=== PATIENT | female | born 1980 | race Hispanic/Latino ===

== ENCOUNTER 2022-06-24 19:57 | Emergency (ER) | payer BC, OTHER ==
[2022-06-24] MEDS ORDERED: LEVALBUTEROL 1.25 MG/3 ML NEB ONE (20:58)
[2022-06-24] MEDS ORDERED: METHYLPREDNISOLONE 125 MG INJ ONE (20:58)
[2022-06-24] MEDS ORDERED: NA CHLORIDE 0.9% 1,000 ML ONE (20:59)
--- OUTSIDE RECORDS SUMMARY | 2022-06-24 21:06 | XMS REPORT | Continuity of Care Document ---
:1980 Author Organization [facility] t Address [address] [place] [address] Care Team Providers Name Role Phone Nata JEAN-BAPTISTE, Yoan PalenciaTatianna Primary Care Physician Tigre Campo Attending Clinician TIGRE CARRILLO Attending Clinician Unavailable BRANDON PLUNKETT Attending Clinician Unavailable BRANDON PLUNKETT Attending Clinician [phone] RADHA MÉNDEZ Attending Clinician Unavailable RADHA MÉNDEZ Attending Clinician [phone] NURSE, NURSE Attending Clinician Unavailable ANA ROSA SHAW Attending Clinician [phone] BREONNA BARNEY Attending Clinician [phone] UBALDO CHINO Attending Clinician Unavailable UBALDO CHINO Attending Clinician [phone] LANCE BRITTON Attending Clinician Unavailable LANCE BRITTON Attending Clinician [phone] STUDENT, STUDENT Attending Clinician Unavailable LUZ BERGMAN Attending Clinician Unavailable LUZ BERGMAN Attending Clinician [phone] JOSE RICHARD Attending Clinician Unavailable JOSE RICHARD Attending Clinician [phone] WOLF WHEELER Attending Clinician Unavailable WOLF WHEELER Attending Clinician [phone] APRIL DEEPTI Attending Clinician [phone] ANDREA WHITMAN Attending Clinician [phone] DR ANAI MCKEON Attending Clinician Unavailable JORGE TRACEY M.D. Attending Clinician Unavailable DECLAN ARVIZU NP Attending Clinician Unavailable Trung Mccain Attending Clinician TIGRE CARRILLO Admitting Clinician Unavailable DR ANAI MCKEON Admitting Clinician Unavailable Trung Mccain Admitting Clinician Payers Payer Name Policy Type Policy Number Effective Date Expiration Date S ource Problems Condition Condition Condition Status Onset Resolution Last Treating Co mments Source Name Details Category Date Date Treatment Clinician Date Iron Iron Disease Active 2016-10 [facility] deficiency deficiency 2 anemia anemia 00:00: Hospita 00 l History of History of Disease Active 2016-10 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 00:00: Hospita 00 l Menorrhagi Menorrhagi Disease Active 2016-10 M ethodi a with a with 11-28 st regular regular 00:00: Hospita cycle cycle 00 l AUTO PED AUTO PED Diagnosis Active 2013-102014-08-08 Memoria Active 0-24 23:14:00 l 08/08/2014 00:00: Reece narvaez [address] ABD PAIN ABD PAIN Diagnosis Active 2013-102014-08-19 Memoria Active 0-24 14:43:00 l 08/08/2014 00:00: Reece narvaez [address] KAILEE KAILEE Diagnosis Active 2013-102014-08-11 Memoria BILLING BILLING 0-24 12:59:00 l Active 00:00: Luis 08/08/[address] [place] [address] ABDMNAL ABDMNAL Diagnosis Active 2014-08-19 Memoria PAIN PAIN 14:43:00 l UNSPCF UNSPCF [place] SITE SITE Active [facility] Asthma Asthma Problem Resolve 2014-08-11 Mem oria (disorder) (disorder) d 22:30:16 l Resolved [place] Problem 08/11/2014 [facility] Depression Depressio Problem Resolve 2014-08-11 Memoria - motion n - motion d 22:30:16 l (qualifier (qualifier He rmann value) value) Resolved Problem 08/11/2014 [facility] Fibromyosi Fibromyos Problem Resolve 2014-08-11 Memoria tis itis d 22:30:16 l (disorder) (disorder) He rmann Resolved Problem 08/11/2014 [facility] Migraine Migraine Problem Resolve 2014-08-11 Memoria (disorder) (disorder) d 22:30:16 l Resolved [place] Problem 08/11/2014 [facility] History of History of Problem Resolve [place] asthma asthma HL7.CCDAR2 d Physic i ans History of History of Problem Resolve [place] chronic chronic HL7.CCDAR2 d Phys ici pain pain ans History of History of Problem Resolve [place] depression depression HL7.CCDAR2 d Physici ans History of History of Problem Resolve [place] migraine migraine HL7.CCDAR2 d Ph ysici headaches headaches ans History of History of Problem Resolve [facility] pneumonia pneumonia HL7.CCDAR2 d Physici ans Transfusio Transfusio Problem Resolve UT n history n history HL7.CCDAR2 d Physici ans Urinary Urinary Problem Active [facility] urgency urgency HL7.CCDAR2 Phys ici ans Mixed urge Mixed urge Problem Active U T and stress and stress HL7.CCDAR2 Physici incontinen incontinen an s ce ce 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 Post-op Post-op Problem Active [facility] pain pain HL7.CCDAR2 Physic i ans Post-opera Post-opera Problem Active U T tive tive HL7.CCDAR2 Physic i nausea and nausea and an s vomiting vomiting Post-opera Post-opera Problem Active U T tive state tive state HL7.CCDAR2 Physici ans Bilateral Bilateral Problem Active [facility] lower lower HL7.CCDAR2 Physic i abdominal abdominal ans pain pain Postop Postop Problem Active [facility] check check HL7.CCDAR2 Physic i ans Allergies, Adverse Reactions, Alerts Allergy Allergy Status Severity Reaction(s) Onset Inactive Treating Comm ents Source Name Type Date Date Clinician latex drug Active 2018-10 [facility] allergy 0-09 [facility]alth 00:00: 00 No Known Propensi Active 2017-1 Method i Drug ty to 12-13 st Allergie adverse 00:00: Hospita s reaction 00 l s to drug latex DA Active [facility] 10-28 [facility] 00:[facility]: [facility] 00 l [facility] [place] NO KNOWN Drug Active [facility] ALLERGIE Class ity of [facility] [place] [facility] [place] Latex Latex Active Franco Smith Family History Family Member Diagnosis Comments Start Date Stop Date Source aunt Family history of [facility] Urinary incontinence Grandmother Family history of [facility] Urinary incontinence Mother Asthma 2019-07-24 2019-07-24 [facility] 00:00:00 00:00:00 Social History Social Habit Start Date Stop Date Quantity Comments Source Health-related 2019-07-24 [facility] Behavior 00:00:00 History of tobacco 2019-07-24 Current [facility] use 00:00:00 non-smoker Nutritional 2019-07-24 [facility] observable 00:00:00 Tobacco use and 2019-07-24 : No Details [facility] exposure 00:00:00 Available Quantity Details - : No Details Available Alcohol intake 2017-09-27 2017-09-27 [facility] 00:00:00 00:00:00 non-drinker of alcohol (finding) Social History 2014-08-09 2014-08-09 [facility] 07:03:33 07:03:33 Sex Ass[birth year] At [birth year] [facility] 00:00:00 00:00:00 Smoking Status Start Date Stop Date Source Tobacco smoking consumption [facility] Never smoker [facility] Medications Ordered Filled Start Stop Current Ordering Indication Dosage Frequency Signature Comments Components Source Medication Medication Date Date Medication? Clinician (SIG) Name Name predniSONE 2021- Yes [id number] 20mg Take 1 [facility] 20 mg 06-20 tablet by ity of tablet 00:00: 04:59 mouth in [place] 00 :00 the Medical morning Branch for 5 days. dexAMETHaso 2021- No 10mg 10 mg, Uni vers ne 06-19 Oral, ity of (DECADRON) 19:30: 19:11 ONCE, 1 [place] as tablet 10 00 :00 dose, On Medica l mg 06/19/22 Branch at 1430, BRADY metoclopram 2021- No 5mg 5 mg, Univ ers chaim HCl 06-19 Oral, ity of (REGLAN) 19:30: 19:07 ONCE, 1 [place] tablet 5 mg 00 :00 dose, [place] 06/19/22 Branch at 1430, BRADY butalbital- 2021- No 1{tbl} 1 tablet, Univers acetaminoph 06-19 Oral, ity of en-caff 19:30: 19:06 ONCE, 1 [place] (ESGIC) 00 :00 dose, On Medical 50-325-40 06/19/22 Bran ch mg tablet 1 at 1430, tablet BRADY ketorolac 2021- No 60mg 60 mg, Unive rs (TORADOL) 06-19 Intramuscu ity of injection 19:30: 19:07 [place], ONCE, [place] 60 mg 00 :00 1 dose, On Medical 06/19/22 Branch at 1430, BRADY methocarbam 2021- No 1000mg 1,000 mg, Univers oL 06-19 Oral, ity of (ROBAXIN) 19:00: 19:07 ONCE, [place] tablet 00 :[place] dose, On Medical 1,000 mg 06/19/22 Branc h at 1400, BRADY ibuprofen 0 Yes [id number] 600mg Take 1 U nivers 600 mg 9-04 tablet by ity of tablet 00:00: mouth [place] 00 every 6 Medical (six) Branch hours as needed for Pain (scale 4-6). methocarbam 2021-0 Yes [id number] 500mg Take 1 [facility] oL 500 mg 9-04 tablet by ity o f tablet 00:00: mouth 4 [place] 00 (four) Medical times Branch daily as needed for Pain (scale 7-10). butalbital- 2021-0 Yes [id number] 1{tbl} Take 1 [facility] acetaminoph 9-04 tablet by ity of en-caff 00:00: mouth [place] 50-325-40 00 every 4 Medical mg tablet (four) Branch hours as needed for Pain (scale 7-10) (headache) . metoclopram 2021-0 Yes [id number] 5mg Take 1 [facility] chaim HCl -04 tablet by ity of (REGLAN) 5 00:00: mouth [place] mg tablet 00 every 8 Medical (eight) Branch hours as needed for Nausea and Vomiting (N/V) (headache) . amoxicillin 2021- Yes [id number] 1{tbl} Take 1 Univers -clavulanat 06-19 tablet by i natalie of e [id number] 00:00: 04:59 mouth in [place] as mg per 00 :00 the Medical tablet morning Branch and 1 tablet in the evening. Do all this for 7 days. ProAir HFA No 1{puff} 6xD inhale 1 [facility] 90 6-03 puff by ealth mcg/actuati 00:00: inhalation on aerosol 00 route inhaler every 4 hours as needed as needed ProAir HFA No 1{puff} 6xD inhale 1 [facility] 90 6-03 puff by ealth mcg/actuati 00:00: inhalation on aerosol 00 route inhaler every 4 hours as needed as needed ProAir HFA No 1{puff} 6xD inhale 1 [facility] 90 6-03 puff by ealth mcg/actuati 00:00: inhalation on aerosol 00 route inhaler every 4 hours as needed as needed ProAir HFA No 1{puff} 6xD inhale 1 [facility] 90 6-03 puff by ealth mcg/actuati 00:00: inhalation on aerosol 00 route inhaler every 4 hours as needed as needed ProAir HFA No 1{puff} 6xD inhale 1 [facility] 90 6-03 puff by ealth mcg/actuati 00:00: inhalation on aerosol 00 route inhaler every 4 hours as needed as needed ProAir HFA No 1{puff} 6xD inhale 1 [facility] 90 6-03 puff by ealth mcg/actuati 00:00: inhalation on aerosol 00 route inhaler every 4 hours as needed as needed Temazepam No 1{capsu Q1D take 1 Acc [facility] 30mg 5-28 le} capsule by ealth Capsule 00:00: oral route 00 every day at bedtime as needed Temazepam No 1{capsu Q1D take 1 Acc [facility] 30mg 5-28 le} capsule by ealth Capsule 00:00: oral route 00 every day at bedtime as needed Temazepam No 1{capsu Q1D take 1 Acc [facility] 30mg 5-28 le} capsule by ealth Capsule 00:00: oral route 00 every day at bedtime as needed Temazepam No 1{capsu Q1D take 1 Acc [facility] 30mg 5-28 le} capsule by ealth Capsule 00:00: oral route 00 every day at bedtime as needed Temazepam No 1{capsu Q1D take 1 Acc [facility] 30mg 5-28 le} capsule by ealth Capsule 00:00: oral route 00 every day at bedtime as needed Temazepam No 1{capsu Q1D take 1 Acc [facility] 30mg 5-28 le} capsule by ealth Capsule 00:00: oral route 00 every day at bedtime as needed Advair No 1{puff} Q12H inhale 1 [facility]ce [facility] Diskus 100 5-10 puff by ealth mcg-50 00:00: inhalation mcg/dose 00 route 2 powder for times inhalation every day in the morning and evening approximat jaya 12 hours apart for asthma Advair No 1{puff} Q12H inhale 1 Acce ssH Diskus 100 5-10 puff by ealth mcg-50 00:00: inhalation mcg/dose 00 route 2 powder for times inhalation every day in the morning and evening approximat jaya 12 hours apart for asthma Advair No 1{puff} Q12H inhale 1 Acce ssH Diskus 100 5-10 puff by ealth mcg-50 00:00: inhalation mcg/dose 00 route 2 powder for times inhalation every day in the morning and evening approximat jaya 12 hours apart for asthma Advair No 1{puff} Q12H inhale 1 Acce ssH Diskus 100 5-10 puff by ealth mcg-50 00:00: inhalation mcg/dose 00 route 2 powder for times inhalation every day in the morning and evening approximat jaya 12 hours apart for asthma Advair No 1{puff} Q12H inhale 1 Acce ssH Diskus 100 5-10 puff by ealth mcg-50 00:00: inhalation mcg/dose 00 route 2 powder for times inhalation every day in the morning and evening approximat jaya 12 hours apart for asthma Advair No 1{puff} Q12H inhale 1 Acce ssH Diskus 100 5-10 puff by ealth mcg-50 00:00: inhalation mcg/dose 00 route 2 powder for times inhalation every day in the morning and evening approximat jaya 12 hours apart for asthma diazepam 10 No 1{table QD take 1 vaginal [facility] mg tablet 3-12 t} tablet by pain ealth 00:00: oral route 00 every day as needed meloxicam No 2{table Q1D take 2 Acc [facility] 7.5 mg 3-12 t} tablet by ealth tablet 00:00: oral route 00 every day tizanidine No TAKE ONE Acc [facility] 4 mg tablet 3-12 (1) TABLET ea lth 00:00: BY MOUTH 00 EVERY 6 TO 8 HOURS NEEDED. NOT TO EXCEED 3 DOSES IN 24 HOURS. Vitamin D2 No take 1 Acces sH 1,250 mcg 3-12 capsule by ealt h (50,000 00:00: oral route unit) 00 every week capsule diazepam No 1{table QD take 1 vaginal [facility] mg tablet 3-12 t} tablet by pain ealth 00:00: oral route 00 every day as needed meloxicam No 2{table Q1D take 2 Acc [facility] 7.5 mg 3-12 t} tablet by ealth tablet 00:00: oral route 00 every day tizanidine No TAKE ONE Acc [facility] 4 mg tablet 3-12 (1) TABLET ea lth 00:00: BY MOUTH 00 EVERY 6 TO 8 HOURS NEEDED. NOT TO EXCEED 3 DOSES IN 24 HOURS. Vitamin D2 No take 1 Acces [facility]H 1,250 mcg 3-12 capsule by ealt h (50,000 00:00: oral route unit) 00 every week capsule diazepam 10 No 1{table QD take 1 vaginal [facility] mg tablet 3-12 t} tablet by pain ealth 00:00: oral route 00 every day as needed meloxicam No 2{table Q1D take 2 Acc [facility] 7.5 mg 3-12 t} tablet by ealth tablet 00:00: oral route 00 every day tizanidine No TAKE ONE Acc [facility] 4 mg tablet 3-12 (1) TABLET ea lth 00:00: BY MOUTH 00 EVERY 6 TO 8 HOURS NEEDED. NOT TO EXCEED 3 DOSES IN 24 HOURS. Vitamin D2 No take 1 Acces [facility]H 1,250 mcg 3-12 capsule by ealt h (50,000 00:00: oral route unit) 00 every week capsule diazepam 10 No 1{table QD take 1 vaginal [facility] mg tablet 3-12 t} tablet by pain ealth 00:00: oral route 00 every day as needed meloxicam No 2{table Q1D take 2 Acc [facility] 7.5 mg 3-12 t} tablet by ealth tablet 00:00: oral route 00 every day tizanidine No TAKE ONE Acc [facility] 4 mg tablet 3-12 (1) TABLET ea lth 00:00: BY MOUTH 00 EVERY 6 TO 8 HOURS NEEDED. NOT TO EXCEED 3 DOSES IN 24 HOURS. Vitamin D2 No take 1 Acces sH 1,250 mcg 3-12 capsule by ealt h (50,000 00:00: oral route unit) 00 every week capsule diazepam 10 No 1{table QD take 1 vaginal [facility] mg tablet 3-12 t} tablet by pain ealth 00:00: oral route 00 every day as needed meloxicam No 2{table Q1D take 2 Acc [facility] 7.5 mg 3-12 t} tablet by ealth tablet 00:00: oral route 00 every day tizanidine No TAKE ONE Acc [facility] 4 mg tablet 3-12 (1) TABLET ea lth 00:00: BY MOUTH 00 EVERY 6 TO 8 HOURS NEEDED. NOT TO EXCEED 3 DOSES IN 24 HOURS. Vitamin D2 No take 1 Acces sH 1,250 mcg 3-12 capsule by ealt h (50,000 00:00: oral route unit) 00 every week capsule diazepam 10 No 1{table QD take 1 vaginal [facility] mg tablet 3-12 t} tablet by pain ealth 00:00: oral route 00 every day as needed meloxicam No 2{table Q1D take 2 Acc essH 7.5 mg 3-12 t} tablet by ealt tablet 00:00: oral route 00 every day tizanidine No TAKE ONE Acc essH 4 mg tablet 3-12 (1) TABLET ea [facility] 00:00: BY MOUTH 00 EVERY 6 TO 8 HOURS NEEDED. NOT TO EXCEED 3 DOSES IN 24 HOURS. Vitamin D2 No take 1 Acces sH 1,250 mcg 3-12 capsule by ealt (50,000 00:00: oral route unit) 00 every week capsule ProAir HFA 2020- No 1{puff} 6xD inhale 1 [facility] 90 3-12 06-03 puff by ealth mcg/actuati 00:00: 00:00 inhalation on aerosol 00 :00 route inhaler every 4 hours as needed as needed ProAir HFA 2020- No 1{puff} 6xD inhale 1 Access 90 3-12 06-03 puff by ealth mcg/actuati 00:00: 00:00 inhalation on aerosol 00 :00 route inhaler every 4 hours as needed as needed ProAir HFA 2020- No 1{puff} 6xD inhale 1 [facility] 90 3-12 06-03 puff by ealth mcg/actuati 00:00: 00:00 inhalation on aerosol 00 :00 route inhaler every 4 hours as needed as needed ProAir HFA 2020- No 1{puff} 6xD inhale 1 [facility] 90 3-12 06-03 puff by ealth mcg/actuati 00:00: 00:00 inhalation on aerosol 00 :00 route inhaler every 4 hours as needed as needed ProAir HFA 2020- No 1{puff} 6xD inhale 1 [facility] 90 3-12 06-03 puff by ealth mcg/actuati 00:00: 00:00 inhalation on aerosol 00 :00 route inhaler every 4 hours as needed as needed ProAir HFA 2020- No 1{puff} 6xD inhale 1 [facility] 90 3-12 06-03 puff by ealth mcg/actuati 00:00: 00:00 inhalation on aerosol 00 :00 route inhaler every 4 hours as needed as needed Advair 2020- No 1{puff} Q12H inhale 1 Acc [facility] Diskus 100 3-12 05-10 puff by ealth mcg-50 00:00: 00:00 inhalation mcg/dose 00 :00 route 2 powder for times inhalation every day in the morning and evening approximat jaya 12 hours apart for asthma Advair 2020- No 1{puff} Q12H inhale 1 Acc ess[facility] Diskus 100 3-12 05-10 puff by ealth mcg-50 00:00: 00:00 inhalation mcg/dose 00 :00 route 2 powder for times inhalation every day in the morning and evening approximat jaya 12 hours apart for asthma Advair 2020- No 1{puff} Q12H inhale 1 Acc ess[facility] Diskus 100 3-12 05-10 puff by ealth mcg-50 00:00: 00:00 inhalation mcg/dose 00 :00 route 2 powder for times inhalation every day in the morning and evening approximat jaya 12 hours apart for asthma Advair 2020-2020- No 1{puff} Q12H inhale 1 Acc [facility] Diskus 100 3-12 05-10 puff by ealth mcg-50 00:00: 00:00 inhalation mcg/dose 00 :00 route 2 powder for times inhalation every day in the morning and evening approximat jaya 12 hours apart for asthma Advair 2020- No 1{puff} Q12H inhale 1 Acc ess[facility] Diskus 100 3-12 05-10 puff by ealth mcg-50 00:00: 00:00 inhalation mcg/dose 00 :00 route 2 powder for times inhalation every day in the morning and evening approximat jaya 12 hours apart for asthma Advair 2020-2020- No 1{puff} Q12H inhale 1 Acc [facility] Diskus 100 3-12 05-10 puff by ealth mcg-50 00:00: 00:00 inhalation mcg/dose 00 :00 route 2 powder for times inhalation every day in the morning and evening approximat jaya 12 hours apart for asthma Klonopin 1 No TAKE ONE Acc [facility] mg tablet 2-23 (1) TABLET ealt h 00:00: BY MOUTH 3 00 TIMES EVERY DAY. Klonopin 1 No TAKE ONE Acc ess[facility] mg tablet 2-23 (1) TABLET ealt h 00:00: BY MOUTH 3 00 TIMES EVERY DAY. Klonopin 1 No TAKE ONE Acc ess[facility] mg tablet 2-23 (1) TABLET ealt h 00:00: BY MOUTH 3 00 TIMES EVERY DAY. Klonopin 1 No TAKE ONE Acc ess[facility] mg tablet 2-23 (1) TABLET ealt h 00:00: BY MOUTH 3 00 TIMES EVERY DAY. Klonopin 1 No TAKE ONE Acc ess[facility] mg tablet 2-23 (1) TABLET ealt h 00:00: BY MOUTH 3 00 TIMES EVERY DAY. Klonopin 1 2020- No TAKE ONE Ac cess[facility] mg tablet 2-12-25 (1) TABLET eal th 00:00: 00:00 BY MOUTH 3 00 :00 TIMES EVERY DAY. Klonopin 1 2020- No TAKE ONE Ac cessH mg tablet 2-05 01- (1) TABLET eal th 00:00: 00:00 BY MOUTH 3 00 :00 TIMES EVERY DAY. Klonopin 1 2020- No TAKE ONE Ac cessH mg tablet 2-05 01-12 (1) TABLET eal th 00:00: 00:00 BY MOUTH 3 00 :00 TIMES EVERY DAY. Klonopin 1 2020- No TAKE ONE Ac cessH mg tablet 2-12-25 (1) TABLET eal th 00:00: 00:00 BY MOUTH 3 00 :00 TIMES EVERY DAY. Klonopin 1 2020- No TAKE ONE Ac cessH mg tablet 2-05 01-12 (1) TABLET eal th 00:00: 00:00 BY MOUTH 3 00 :00 TIMES EVERY DAY. Klonopin 1 2020- No TAKE ONE Ac cess[facility] mg tablet 2-05 01-12 (1) TABLET eal th 00:00: 00:00 BY MOUTH 3 00 :00 TIMES EVERY DAY. sertraline No 1{table Q1D take 1 Ac [facility] 100 mg 2-02 t} tablet by ealth tablet 00:00: oral route 00 every day diazepam 10 No 1{table QD take 1 vaginal [facility] mg tablet 2-02 t} tablet by pain ealth 00:00: oral route 00 every day as needed sertraline No 1{table Q1D take 1 Ac cess[facility] 100 mg 2-02 t} tablet by ealth tablet 00:00: oral route 00 every day diazepam 10 No 1{table QD take 1 vaginal [facility] mg tablet 2-02 t} tablet by pain ealth 00:00: oral route 00 every day as needed sertraline No 1{table Q1D take 1 Ac [facility] 100 mg 2-02 t} tablet by ealth tablet 00:00: oral route 00 every day diazepam 10 No 1{table QD take 1 vaginal [facility] mg tablet 2-02 t} tablet by pain ealth 00:00: oral route 00 every day as needed sertraline No 1{table Q1D take 1 Ac cess[facility] 100 mg 2-02 t} tablet by ealth tablet 00:00: oral route 00 every day diazepam 10 No 1{table QD take 1 vaginal [facility] mg tablet 2-02 t} tablet by pain ealth 00:00: oral route 00 every day as needed sertraline No 1{table Q1D take 1 Ac cess[facility] 100 mg 2-02 t} tablet by ealth tablet 00:00: oral route 00 every day diazepam 10 No 1{table QD take 1 vaginal [facility] mg tablet 2-02 t} tablet by pain ealth 00:00: oral route 00 every day as needed sertraline No 1{table Q1D take 1 Ac cess[facility] 100 mg 2-02 t} tablet by ealth tablet 00:00: oral route 00 every day diazepam 10 No 1{table QD take 1 vaginal [facility] mg tablet 2-02 t} tablet by pain ealth 00:00: oral route 00 every day as needed sertraline No 1{table Q1D take 1 Ac cess[facility] 100 mg 2-02 t} tablet by ealth tablet 00:00: oral route 00 every day diazepam 10 2020-0 No 1{table QD take 1 vaginal [facility] mg tablet 2-02 t} tablet by pain ealth 00:00: oral route 00 every day as needed sertraline 2020-0 2021- No 1{table Q1D take 1 A ccess[facility] 100 mg 2-02 03-12 t} tablet by ealth tablet 00:00: 00:00 oral route 00 :00 every day diazepam 10 2020-0 2021- No 1{table QD take 1 vaginal [facility] mg tablet 2-02 03-12 t} tablet by pain ealt h 00:00: 00:00 oral route 00 :00 every day as needed sertraline 2020-0 202- No 1{table Q1D take 1 A ccessH 100 mg 2-02 03-12 t} tablet by ealth tablet 00:00: 00:00 oral route 00 :00 every day diazepam 10 2020-0 2021- No 1{table QD take 1 vaginal [facility] mg tablet 2-02 03-12 t} tablet by pain ealt h 00:00: 00:00 oral route 00 :00 every day as needed sertraline 2020-0 2021- No 1{table Q1D take 1 A ccess[facility] 100 mg 2-02 03-12 t} tablet by ealth tablet 00:00: 00:00 oral route 00 :00 every day diazepam 10 2020-0 2021- No 1{table QD take 1 vaginal [facility] mg tablet 2-02 03-12 t} tablet by pain ealt h 00:00: 00:00 oral route 00 :00 every day as needed sertraline 2020-0 2021- No 1{table Q1D take 1 A ccess[facility] 100 mg 2-02 03-12 t} tablet by ealth tablet 00:00: 00:00 oral route 00 :00 every day diazepam 10 2020-0 202- No 1{table QD take 1 vaginal [facility] mg tablet 2-02 03-12 t} tablet by pain ealt h 00:00: 00:00 oral route 00 :00 every day as needed sertraline 2020-0 2021- No 1{table Q1D take 1 A ccess[facility] 100 mg 2-02 03-12 t} tablet by ealth tablet 00:00: 00:00 oral route 00 :00 every day diazepam 10 2020-0 202- No 1{table QD take 1 vaginal [facility] mg tablet 11-17 t} tablet by pain ealt h 00:00: 00:00 oral route 00 :00 every day as needed sertraline 2020-0 2020- No 1{table Q1D take 1 A ccess[facility] 100 mg 212 t} tablet by ealth tablet 00:00: 00:00 oral route 00 :00 every day diazepam 10 0 202- No 1{table QD take 1 vaginal [facility] mg tablet 11-17 t} tablet by pain ealt h 00:00: 00:00 oral route 00 :00 every day as needed Eszopiclone 2020-0 No 1{table Q1D TAKE 1 A ccessH 1mg Tablet -22 t} TABLET BY ealt h 00:00: ORAL ROUTE 00 EVERY DAY AT BEDTIME Gabapentin 2020-0 No 3{capsu Q8H TAKE THREE [facility] 300mg 1-22 le} (3) ealth Capsule 00:00: CAPSULE BY 00 ORAL ROUTE 3 TIMES EVERY DAY. Tizanidine No TAKE ONE Acc ess[facility] 4mg Tablet 1-22 (1) TABLET ea 00:00: BY MOUTH 00 EVERY 6 TO 8 HOURS NEEDED. NOT TO EXCEED 3 DOSES IN 24 HOURS. Clonazepam No TAKE ONE Acc ess[facility] 1mg Tablet 1-22 (1) TABLET ea 00:00: BY MOUTH 3 00 TIMES EVERY DAY. Eszopiclone 2020-0 No 1{table Q1D TAKE 1 A ccess[facility] 1mg Tablet 1-22 t} TABLET BY ealt h 00:00: ORAL ROUTE 00 EVERY DAY AT BEDTIME Gabapentin 2020-0 No 3{capsu Q8H TAKE THREE [facility] 300mg 1-22 le} (3) ealth Capsule 00:00: CAPSULE BY 00 ORAL ROUTE 3 TIMES EVERY DAY. Tizanidine No TAKE ONE Acc [facility] 4mg Tablet 1-22 (1) TABLET eal th 00:00: BY MOUTH 00 EVERY 6 TO 8 HOURS NEEDED. NOT TO EXCEED 3 DOSES IN 24 HOURS. Clonazepam 2020-0 No TAKE ONE Acc ess[facility] 1mg Tablet 1-22 (1) TABLET ea 00:00: BY MOUTH 3 00 TIMES EVERY DAY. Eszopiclone 2020-0 No 1{table Q1D TAKE 1 A ccess[facility] 1mg Tablet 1-22 t} TABLET BY ealt h 00:00: ORAL ROUTE 00 EVERY DAY AT BEDTIME Gabapentin 2021-0 No 3{capsu Q8H TAKE THREE [facility] 300mg 1-22 le} (3) ealth Capsule 00:00: CAPSULE BY 00 ORAL ROUTE 3 TIMES EVERY DAY. Tizanidine 2020-0 No TAKE ONE Acc ess[facility] 4mg Tablet 1-22 (1) TABLET ea 00:00: BY MOUTH 00 EVERY 6 TO 8 HOURS NEEDED. NOT TO EXCEED 3 DOSES IN 24 HOURS. Eszopiclone 2020-0 No 1{table Q1D TAKE 1 A ccess[facility] 1mg Tablet 1-22 t} TABLET BY ealt h 00:00: ORAL ROUTE 00 EVERY DAY AT BEDTIME Gabapentin 202-0 No 3{capsu Q8H TAKE THREE [facility] 300mg 1-22 le} (3) ealth Capsule 00:00: CAPSULE BY 00 ORAL ROUTE 3 TIMES EVERY DAY. Tizanidine 2020-0 No TAKE ONE Acc ess[facility] 4mg Tablet 1-22 (1) TABLET ea 00:00: BY MOUTH 00 EVERY 6 TO 8 HOURS NEEDED. NOT TO EXCEED 3 DOSES IN 24 HOURS. Eszopiclone 2020-0 No 1{table Q1D TAKE 1 A ccessH 1mg Tablet 1-22 t} TABLET BY [facility] 00:00: ORAL ROUTE 00 EVERY DAY AT BEDTIME Gabapentin 2021-0 No 3{capsu Q8H TAKE THREE [facility] 300mg 1-22 le} (3) [facility] 00:00: CAPSULE BY 00 ORAL ROUTE 3 TIMES EVERY DAY. Tizanidine 2020-0 No TAKE ONE Acc essH 4mg Tablet 1-22 (1) TABLET [facility] 00:00: BY MOUTH 00 EVERY 6 TO 8 HOURS NEEDED. NOT TO EXCEED 3 DOSES IN 24 HOURS. Eszopiclone 2020-0 No 1{table Q1D TAKE 1 A ccessH 1mg Tablet 1-22 t} TABLET BY [facility] 00:00: ORAL ROUTE 00 EVERY DAY AT BEDTIME Gabapentin 2021-0 No 3{capsu Q8H TAKE THREE Access[facility] 300mg 1-22 le} (3) [facility] 00:00: CAPSULE BY 00 ORAL ROUTE 3 TIMES EVERY DAY. Tizanidine No TAKE ONE Acc essH 4mg Tablet 1-22 (1) TABLET ea 00:00: BY MOUTH 00 EVERY 6 TO 8 HOURS NEEDED. NOT TO EXCEED 3 DOSES IN 24 HOURS. Eszopiclone No 1{table Q1D TAKE 1 A ccessH 1mg Tablet -22 t} TABLET BY [facility] 00:00: ORAL ROUTE 00 EVERY DAY AT BEDTIME Gabapentin No 3{capsu Q8H TAKE THREE Access[facility] 300mg 1-22 le} (3) [facility] 00:00: CAPSULE BY 00 ORAL ROUTE 3 TIMES EVERY DAY. Tizanidine No TAKE ONE Acc essH 4mg Tablet 1-22 (1) TABLET ea 00:00: BY MOUTH 00 EVERY 6 TO 8 HOURS NEEDED. NOT TO EXCEED 3 DOSES IN 24 HOURS. Gabapentin No 3{capsu Q8H TAKE THREE [facility] 300mg 1-22 le} (3) [facility] 00:00: CAPSULE BY 00 ORAL ROUTE 3 TIMES EVERY DAY. Gabapentin 2020-0 No 3{capsu Q8H TAKE THREE [facility] 300mg 1-22 le} (3) [facility] 00:00: CAPSULE BY 00 ORAL ROUTE 3 TIMES EVERY DAY. Gabapentin 2020-0 No 3{capsu Q8H TAKE THREE Access[facility] 300mg 1-22 le} (3) [facility] 00:00: CAPSULE BY 00 ORAL ROUTE 3 TIMES EVERY DAY. Gabapentin 2020-0 No 3{capsu Q8H TAKE THREE [facility] 300mg 1-22 le} (3) [facility] 00:00: CAPSULE BY 00 ORAL ROUTE 3 TIMES EVERY DAY. Gabapentin 2020-0 No 3{capsu Q8H TAKE THREE [facility] 300mg 1-22 le} (3) [facility] 00:00: CAPSULE BY 00 ORAL ROUTE 3 TIMES EVERY DAY. Gabapentin 2020-0 No 3{capsu Q8H TAKE THREE [facility] 300mg 1-22 le} (3) [facility] 00:00: CAPSULE BY 00 ORAL ROUTE 3 TIMES EVERY DAY. Eszopiclone 2020- No 1{table Q1D TAKE 1 [facility] 1mg Tablet 11-06 t} TABLET BY [facility] 00:00: 00:00 ORAL ROUTE 00 :00 EVERY DAY AT BEDTIME Tizanidine 2020- No TAKE ONE Ac cess[facility] 4mg Tablet 11-0612 (1) TABLET ea lt 00:00: 00:00 BY MOUTH 00 :00 EVERY 6 TO 8 HOURS NEEDED. NOT TO EXCEED 3 DOSES IN 24 HOURS. Eszopiclone 2020- No 1{table Q1D TAKE 1 [facility] 1mg Tablet 11-06 t} TABLET BY [facility] 00:00: 00:00 ORAL ROUTE 00 :00 EVERY DAY AT BEDTIME Tizanidine 2020- No TAKE ONE Ac cess[facility] 4mg Tablet 11-06 (1) TABLET ea lt 00:00: 00:00 BY MOUTH 00 :00 EVERY 6 TO 8 HOURS NEEDED. NOT TO EXCEED 3 DOSES IN 24 HOURS. Eszopiclone 2020- No 1{table Q1D TAKE 1 [facility] 1mg Tablet 11-06 t} TABLET BY [facility] 00:00: 00:00 ORAL ROUTE 00 :00 EVERY DAY AT BEDTIME Tizanidine 2020-2020- No TAKE ONE Ac cess[facility] 4mg Tablet 11-06 (1) TABLET ea lt 00:00: 00:00 BY MOUTH 00 :00 EVERY 6 TO 8 HOURS NEEDED. NOT TO EXCEED 3 DOSES IN 24 HOURS. Eszopiclone 2020- No 1{table Q1D TAKE 1 [facility] 1mg Tablet 11-06 t} TABLET BY [facility] 00:00: 00:00 ORAL ROUTE 00 :00 EVERY DAY AT BEDTIME Tizanidine 2020-2020- No TAKE ONE Ac cess[facility] 4mg Tablet 11-06 (1) TABLET ea lt 00:00: 00:00 BY MOUTH 00 :00 EVERY 6 TO 8 HOURS NEEDED. NOT TO EXCEED 3 DOSES IN 24 HOURS. Eszopiclone 2020- No 1{table Q1D TAKE 1 [facility] 1mg Tablet 11-06 t} TABLET BY [facility] 00:00: 00:00 ORAL ROUTE 00 :00 EVERY DAY AT BEDTIME Tizanidine 2020- No TAKE ONE Ac cessH 4mg Tablet 11-06 (1) TABLET [facility] 00:00: 00:00 BY MOUTH 00 :00 EVERY 6 TO 8 HOURS NEEDED. NOT TO EXCEED 3 DOSES IN 24 HOURS. Eszopiclone 2020-2020- No 1{table Q1D TAKE 1 [facility] 1mg Tablet 11-06 t} TABLET BY [facility] 00:00: 00:00 ORAL ROUTE 00 :00 EVERY DAY AT BEDTIME Tizanidine 2020- No TAKE ONE Ac cess[facility] 4mg Tablet 11-06 (1) TABLET [facility] 00:00: 00:00 BY MOUTH 00 :00 EVERY 6 TO 8 HOURS NEEDED. NOT TO EXCEED 3 DOSES IN 24 HOURS. Clonazepam 2020-2020- No TAKE ONE Ac cess[facility] 1mg Tablet 11-06 (1) TABLET [facility] 00:00: 00:00 BY MOUTH 3 00 :00 TIMES EVERY DAY. Clonazepam 2020-2020- No TAKE ONE Ac cessH 1mg Tablet 11-06-23 (1) TABLET [facility] 00:00: 00:00 BY MOUTH 3 00 :00 TIMES EVERY DAY. Clonazepam 2020-2020- No TAKE ONE Ac cess[facility] 1mg Tablet 11-06-23 (1) TABLET [facility] 00:00: 00:00 BY MOUTH 3 00 :00 TIMES EVERY DAY. Clonazepam 2020-2020- No TAKE ONE Ac cess[facility] 1mg Tablet 11-0623 (1) TABLET [facility] 00:00: 00:00 BY MOUTH 3 00 :00 TIMES EVERY DAY. Clonazepam 2020-2020- No TAKE ONE Ac cess[facility] 1mg Tablet 11-06-23 (1) TABLET [facility] 00:00: 00:00 BY MOUTH 3 00 :00 TIMES EVERY DAY. Clonazepam 2020-2020- No TAKE ONE Ac cess[facility] 1mg Tablet 11-0623 (1) TABLET [facility] 00:00: 00:00 BY MOUTH 3 00 :00 TIMES EVERY DAY. Clonazepam 2022020- No TAKE ONE Ac cessH 1mg Tablet 11-06 (1) TABLET ea lt 00:00: 00:00 BY MOUTH 3 00 :00 TIMES EVERY DAY. Clonazepam 2020- No TAKE ONE Ac cessH 1mg Tablet 11-06 (1) TABLET ea lt 00:00: 00:00 BY MOUTH 3 00 :00 TIMES EVERY DAY. Clonazepam 2020- No TAKE ONE Ac cess[facility] 1mg Tablet 11-06 (1) TABLET ea lt 00:00: 00:00 BY MOUTH 3 00 :00 TIMES EVERY DAY. Clonazepam 2020- No TAKE ONE Ac cess[facility] 1mg Tablet 11-06 (1) TABLET ea lt 00:00: 00:00 BY MOUTH 3 00 :00 TIMES EVERY DAY. Clonazepam 2020- No TAKE ONE Ac cessH 1mg Tablet 11-06 (1) TABLET ea lt 00:00: 00:00 BY MOUTH 3 00 :00 TIMES EVERY DAY. temazepam 2020-1 No 1{capsu Q1D take 1 Acc essH 30 mg 2-29 le} capsule by [facility] capsule 00:00: oral route 00 every day at bedtime as needed temazepam 2020-1 No 1{capsu Q1D take 1 Acc essH 30 mg 2-29 le} capsule by [facility] 00:00: oral route 00 every day at bedtime as needed temazepam 2020-1 No 1{capsu Q1D take 1 Acc ess[facility] 30 mg 2-29 le} capsule by [facility] capsule 00:00: oral route 00 every day at bedtime as needed temazepam 2020-1 No 1{capsu Q1D take 1 Acc ess[facility] 30 mg 2-29 le} capsule by [facility] capsule 00:00: oral route 00 every day at bedtime as needed temazepam 2020-1 No 1{capsu Q1D take 1 Acc ess[facility] 30 mg 2-29 le} capsule by [facility] capsule 00:00: oral route 00 every day at bedtime as needed temazepam 2020-1 No 1{capsu Q1D take 1 Acc ess[facility] 30 mg 2-29 le} capsule by [facility] capsule 00:00: oral route 00 every day at bedtime as needed temazepam 2020-1 No 1{capsu Q1D take 1 Acc ess[facility] 30 mg 2-29 le} capsule by [facility] capsule 00:00: oral route 00 every day at bedtime as needed temazepam 2019-10 No 1{capsu Q1D take 1 Acc ess[facility] 30 mg 2-29 le} capsule by [facility] capsule 00:00: oral route 00 every day at bedtime as needed temazepam 2019-10 No 1{capsu Q1D take 1 Acc ess[facility] 30 mg 2-29 le} capsule by [facility] capsule 00:00: oral route 00 every day at bedtime as needed temazepam 2019-10- No 1{capsu Q1D take 1 Ac cess[facility] 30 mg 2-29 05-28 le} capsule by [facility] capsule 00:00: 00:00 oral route 00 :00 every day at bedtime as needed temazepam 2019-10- No 1{capsu Q1D take 1 Ac cess[facility] 30 mg 2-29 05-28 le} capsule by [facility] capsule 00:00: 00:00 oral route 00 :00 every day at bedtime as needed temazepam 2019-10- No 1{capsu Q1D take 1 Ac cessH 30 mg 2-29 05-28 le} capsule by [facility] capsule 00:00: 00:00 oral route 00 :00 every day at bedtime as needed temazepam 2019-10- No 1{capsu Q1D take 1 Ac cessH 30 mg 2-29 05-28 le} capsule by [facility] capsule 00:00: 00:00 oral route 00 :00 every day at bedtime as needed temazepam 2019-10- No 1{capsu Q1D take 1 Ac cess[facility] 30 mg 2-29 05-28 le} capsule by [facility] capsule 00:00: 00:00 oral route 00 :00 every day at bedtime as needed temazepam 2019-10- No 1{capsu Q1D take 1 Ac cess[facility] 30 mg 2-29 05-28 le} capsule by [facility] capsule 00:00: 00:00 oral route 00 :00 every day at bedtime as needed Clonazepam 2019-10 No TAKE ONE Acc ess[facility] 1mg Tablet 2-26 (1) TABLET [facility]al th 00:00: BY MOUTH 3 00 TIMES EVERY DAY. Clonazepam 2019-10 No TAKE ONE Acc ess[facility] 1mg Tablet - (1) TABLET [facility] 00:00: BY MOUTH 3 00 TIMES EVERY DAY. Clonazepam 2019-10- No TAKE ONE Ac cess[facility] 1mg Tablet 2-11-06 (1) TABLET ea lt 00:00: 00:00 BY MOUTH 3 00 :00 TIMES EVERY DAY. Clonazepam 2019-10- No TAKE ONE Ac cess[facility] 1mg Tablet 2-11-06 (1) TABLET ea lt 00:00: 00:00 BY MOUTH 3 00 :00 TIMES EVERY DAY. Clonazepam 2019-10- No TAKE ONE Ac cess[facility] 1mg Tablet 12-11 (1) TABLET ea lt 00:00: 00:00 BY MOUTH 3 00 :00 TIMES EVERY DAY. Clonazepam 2019-10- No TAKE ONE Ac cess[facility] 1mg Tablet -11-06 (1) TABLET ea lt 00:00: 00:00 BY MOUTH 3 00 :00 TIMES EVERY DAY. Clonazepam 2019-10- No TAKE ONE Ac cess[facility] 1mg Tablet 12-11 (1) TABLET ea lt 00:00: 00:00 BY MOUTH 3 00 :00 TIMES EVERY DAY. Clonazepam 2019-10- No TAKE ONE Ac cess[facility] 1mg Tablet 12-11 (1) TABLET e[facility] 00:00: 00:00 BY MOUTH 3 00 :00 TIMES EVERY DAY. Clonazepam 2019-10- No TAKE ONE Ac cess[facility] 1mg Tablet 12-11 (1) TABLET ea lt 00:00: 00:00 BY MOUTH 3 00 :00 TIMES EVERY DAY. Clonazepam 2019-10- No TAKE ONE Ac cess[facility] 1mg Tablet 12-11 (1) TABLET ea lt 00:00: 00:00 BY MOUTH 3 00 :00 TIMES EVERY DAY. Clonazepam 2019-10- No TAKE ONE Ac cess[facility] 1mg Tablet -11-06 (1) TABLET ea lt 00:00: 00:00 BY MOUTH 3 00 :00 TIMES EVERY DAY. Clonazepam 2019-10- No TAKE ONE Ac cess[facility] 1mg Tablet 2-11-06 (1) TABLET ea lt 00:00: 00:00 BY MOUTH 3 00 :00 TIMES EVERY DAY. Clonazepam 2019-10- No TAKE ONE Ac cess[facility] 1mg Tablet 12-11 (1) TABLET ea lt 00:00: 00:00 BY MOUTH 3 00 :00 TIMES EVERY DAY. Clonazepam 2019-10- No TAKE ONE Ac cess[facility] 1mg Tablet 12-11 (1) TABLET ea lt 00:00: 00:00 BY MOUTH 3 00 :00 TIMES EVERY DAY. Clonazepam 2019-10- No TAKE ONE Ac cess[facility] 1mg Tablet 12-11 (1) TABLET ea lt 00:00: 00:00 BY MOUTH 3 00 :00 TIMES EVERY DAY. Temazepam 2019-10- No 1{capsu Q1D TAKE 1 Ac cess[facility] 30mg 2- 12-29 le} CAPSULE BY [facility] 00:00: 00:00 ORAL ROUTE 00 :00 EVERY DAY AT BEDTIME NEEDED Temazepam 2019-10 2020- No 1{capsu Q1D TAKE 1 Ac cess[facility] 30mg 2- 12-29 le} CAPSULE BY [facility] 00:00: 00:00 ORAL ROUTE 00 :00 EVERY DAY AT BEDTIME NEEDED Temazepam 2019-10 2020- No 1{capsu Q1D TAKE 1 Ac cess[facility] 30mg 2-26 12-29 le} CAPSULE BY [facility] 00:00: 00:00 ORAL ROUTE 00 :00 EVERY DAY AT BEDTIME NEEDED Temazepam 2019-10 2020- No 1{capsu Q1D TAKE 1 Ac cess[facility] 30mg 2-26 12-29 le} CAPSULE BY [facility] 00:00: 00:00 ORAL ROUTE 00 :00 EVERY DAY AT BEDTIME NEEDED Temazepam 2019-10 2020- No 1{capsu Q1D TAKE 1 Ac cess[facility] 30mg 2-26 12-29 le} CAPSULE BY [facility] 00:00: 00:00 ORAL ROUTE 00 :00 EVERY DAY AT BEDTIME NEEDED Temazepam 2019-10 2020- No 1{capsu Q1D TAKE 1 Ac cess[facility] 30mg 2-26 12-29 le} CAPSULE BY [facility] 00:00: 00:00 ORAL ROUTE 00 :00 EVERY DAY AT BEDTIME NEEDED Temazepam 2019-10 2020- No 1{capsu Q1D TAKE 1 Ac cess[facility] 30mg 2-26 12-29 le} CAPSULE BY [facility] 00:00: 00:00 ORAL ROUTE 00 :00 EVERY DAY AT BEDTIME NEEDED Temazepam 2020- 2020- No 1{capsu Q1D TAKE 1 Ac cess[facility] 30mg 2-26 12-29 le} CAPSULE BY [facility] 00:00: 00:00 ORAL ROUTE 00 :00 EVERY DAY AT BEDTIME NEEDED Temazepam 2020- 2020- No 1{capsu Q1D TAKE 1 Ac cess[facility] 30mg 2-26 12-29 le} CAPSULE BY [facility] 00:00: 00:00 ORAL ROUTE 00 :00 EVERY DAY AT BEDTIME NEEDED Temazepam 2019- 2020- No 1{capsu Q1D TAKE 1 Ac cess[facility] 30mg 2-26 12-29 le} CAPSULE BY [facility] 00:00: 00:00 ORAL ROUTE 00 :00 EVERY DAY AT BEDTIME NEEDED Temazepam 2020- 2020- No 1{capsu Q1D TAKE 1 Ac cess[facility] 30mg 2-26 12-29 le} CAPSULE BY [facility] 00:00: 00:00 ORAL ROUTE 00 :00 EVERY DAY AT BEDTIME NEEDED Temazepam 2020-1 2020- No 1{capsu Q1D TAKE 1 Ac cess[facility] 30mg 2-26 12-29 le} CAPSULE BY [facility] 00:00: 00:00 ORAL ROUTE 00 :00 EVERY DAY AT BEDTIME NEEDED Temazepam 2020- 2020- No 1{capsu Q1D TAKE 1 Ac cess[facility] 30mg 2-26 12-29 le} CAPSULE BY [facility] 00:00: 00:00 ORAL ROUTE 00 :00 EVERY DAY AT BEDTIME NEEDED Temazepam 2020- 2020- No 1{capsu Q1D TAKE 1 Ac cess[facility] 30mg 2-26 12-29 le} CAPSULE BY [facility] 00:00: 00:00 ORAL ROUTE 00 :00 EVERY DAY AT BEDTIME NEEDED Temazepam 2020- 2020- No 1{capsu Q1D TAKE 1 Ac cess[facility] 30mg 2-26 12-29 le} CAPSULE BY [facility] 00:00: 00:00 ORAL ROUTE 00 :00 EVERY DAY AT BEDTIME NEEDED Vitamin D2 2020- No take 1 Acces [facility] 1,250 mcg 1-18 capsule by [facility] (50,000 00:00: oral route unit) 00 every week capsule ferrous 2020-1 No 1{table Q1D take 1 Acces s[facility] sulfate 325 1-18 t} tablet by eal th mg (65 mg 00:00: oral route iron) 00 every day tablet Vitamin D2 2019-10 No take 1 Acces [facility] 1,250 mcg 1-18 capsule by [facility] (50,000 00:00: oral route unit) 00 every week capsule ferrous 2019-10 No 1{table Q1D take 1 Acces s[facility] sulfate 325 1-18 t} tablet by eal th mg (65 mg 00:00: oral route iron) 00 every day tablet Vitamin D2 2019-10 No take 1 Acces [facility] 1,250 mcg 1-18 capsule by [facility] (50,000 00:00: oral route unit) 00 every week capsule ferrous 2019-10 No 1{table Q1D take 1 Acces s[facility] sulfate 325 1-18 t} tablet by eal th mg (65 mg 00:00: oral route iron) 00 every day tablet Vitamin D2 2019-10 No take 1 Acces [facility] 1,250 mcg 1-18 capsule by [facility] (50,000 00:00: oral route unit) 00 every week capsule ferrous 2019-10 No 1{table Q1D take 1 Acces s[facility] sulfate 325 1-18 t} tablet by eal th mg (65 mg 00:00: oral route iron) 00 every day tablet Vitamin D2 2019-10 No take 1 Acces s[facility] 1,250 mcg 1-18 capsule by [facility] (50,000 00:00: oral route unit) 00 every week capsule ferrous 2019-10 No 1{table Q1D take 1 Acces s[facility] sulfate 325 1-18 t} tablet by eal th mg (65 mg 00:00: oral route iron) 00 every day tablet Vitamin D2 2019-10 No take 1 Acces [facility] 1,250 mcg 1-18 capsule by [facility] (50,000 00:00: oral route unit) 00 every week capsule ferrous 2019-10 No 1{table Q1D take 1 Acces s[facility] sulfate 325 1-18 t} tablet by eal th mg (65 mg 00:00: oral route iron) 00 every day tablet Vitamin D2 2019-10 No take 1 Acces [facility] 1,250 mcg 1-18 capsule by [facility] (50,000 00:00: oral route unit) 00 every week capsule ferrous 2019-10 No 1{table Q1D take 1 Acces s[facility] sulfate 325 1-18 t} tablet by eal th mg (65 mg 00:00: oral route iron) 00 every day tablet Vitamin D2 2019-10 No take 1 Acces [facility] 1,250 mcg 1-18 capsule by ealt [facility] (50,000 00:00: oral route unit) 00 every week capsule ferrous 2019-10 No 1{table Q1D take 1 Acces s[facility] sulfate 325 1-18 t} tablet by eal th mg (65 mg 00:00: oral route iron) 00 every day tablet Vitamin D2 2019-10 No take 1 Acces [facility] 1,250 mcg 1-18 capsule by [facility] (50,000 00:00: oral route unit) 00 every week capsule ferrous 2019-10 No 1{table Q1D take 1 Acces s[facility] sulfate 325 1-18 t} tablet by eal th mg (65 mg 00:00: oral route iron) 00 every day tablet Vitamin D2 2019-10 No take 1 Acces [facility] 1,250 mcg 1-18 capsule by [facility] (50,000 00:00: oral route unit) 00 every week capsule ferrous 2019-10 No 1{table Q1D take 1 Acces s[facility] sulfate 325 1-18 t} tablet by eal th mg (65 mg 00:00: oral route iron) 00 every day tablet Vitamin D2 2019-10 No take 1 Acces [facility] 1,250 mcg 1-18 capsule by [facility] (50,000 00:00: oral route unit) 00 every week capsule ferrous 2019-10 No 1{table Q1D take 1 Acces s[facility] sulfate 325 1-18 t} tablet by eal th mg (65 mg 00:00: oral route iron) 00 every day tablet Vitamin D2 2019-10 No take 1 Acces [facility] 1,250 mcg 1-18 capsule by [facility] (50,000 00:00: oral route unit) 00 every week capsule ferrous 2019-10 No 1{table Q1D take 1 Acces s[facility] sulfate 325 1-18 t} tablet by eal th mg (65 mg 00:00: oral route iron) 00 every day tablet ferrous 2019-10 No 1{table Q1D take 1 Acces s[facility] sulfate 325 1-18 t} tablet by eal th mg (65 mg 00:00: oral route iron) 00 every day tablet ferrous 2019-10 No 1{table Q1D take 1 Acces s[facility] sulfate 325 1-18 t} tablet by eal th mg (65 mg 00:00: oral route iron) 00 every day tablet ferrous 2019-10 No 1{table Q1D take 1 Acces s[facility] sulfate 325 1-18 t} tablet by eal th mg (65 mg 00:00: oral route iron) 00 every day tablet ferrous 2019-10 No 1{table Q1D take 1 Acces s[facility] sulfate 325 1-18 t} tablet by eal th mg (65 mg 00:00: oral route iron) 00 every day tablet ferrous 2019-10 No 1{table Q1D take 1 Acces s[facility] sulfate 325 1-18 t} tablet by eal th mg (65 mg 00:00: oral route iron) 00 every day tablet ferrous 2019-10 No 1{table Q1D take 1 Acces s[facility] sulfate 325 1-18 t} tablet by eal th mg (65 mg 00:00: oral route iron) 00 every day tablet Vitamin D2 2019-10- No take 1 Acce [facility] 1,250 mcg 1-18 03-12 capsule by [facility] (50,000 00:00: 00:00 oral route unit) 00 :00 every week capsule Vitamin D2 2019-10- No take 1 Acce ss[facility] 1,250 mcg 1-18 03-12 capsule by [facility] (50,000 00:00: 00:00 oral route unit) 00 :00 every week capsule Vitamin D2 2019-10- No take 1 Acce ss[facility] 1,250 mcg 1-18 03-12 capsule by [facility] (50,000 00:00: 00:00 oral route unit) 00 :00 every week capsule Vitamin D2 2019-10- No take 1 Acce ss[facility] 1,250 mcg 1-18 03-12 capsule by [facility] (50,000 00:00: 00:00 oral route unit) 00 :00 every week capsule Vitamin D2 2019-10- No take 1 Acce ss[facility] 1,250 mcg 1-18 03-12 capsule by eal (50,000 00:00: 00:00 oral route unit) 00 :00 every week capsule Vitamin D2 2019-10- No take 1 Acce ss[facility] 1,250 mcg 1-18 03-12 capsule by eal (50,000 00:00: 00:00 oral route unit) 00 :00 every week capsule Advair 2019-10 No 1{puff} Q12H inhale 1 Acce ss[facility] Diskus 100 1-12 puff by [facility] mcg-50 00:00: inhalation mcg/dose 00 route 2 powder for times inhalation every day in the morning and evening approximat jaya 12 hours apart for asthma diazepam 10 2019-10 No 1{table QD take 1 A ccess[facility] mg tablet 1-12 t} tablet by ealth 00:00: oral route 00 every day as needed ProAir HFA 2019-10 No 1{puff} 6xD inhale 1 Access[facility] 90 1-12 puff by ealt mcg/actuati 00:00: inhalation on aerosol 00 route inhaler every 4 hours as needed as needed sertraline 2019-10 No 1{table Q1D take 1 Ac cess[facility] 100 mg 1-12 t} tablet by ealth tablet 00:00: oral route 00 every day tizanidine 2019-10 No TAKE 1 Acces s[facility] 4 mg tablet 1-12 TABLET BY ea th 00:00: MOUTH 00 EVERY 6 TO 8 HOURS NEEDED. NOT TO EXCEED 3 DOSES IN 24 HOURS meloxicam 2019-10 No 2{table Q1D take 2 Acc essH 7.5 mg 1-12 t} tablet by ealt tablet 00:00: oral route 00 every day Klonopin 1 2019-10 No 1{table Q8H take 1 Ac cess[facility] mg tablet 1-12 t} tablet by ealth 00:00: oral route 00 3 times every day gabapentin 2019-10 No 3{capsu Q8H take 3 Ac cessH 300 mg 1-12 le} capsule by ealt capsule 00:00: oral route 00 3 times every day butalbital- 2019-10 No 1{capsu 6xD take 1 - 2 0 Access[facility] acetaminoph 1-12 le} capsule by Pt needs ealt en-caffeine 00:00: oral route apt for 50 mg-325 00 every 4 further mg-40 mg hours as fills, capsule needed not --AG,RN to exceed 6 capsules per 24hrs as needed Flonase 2019-10 No 1{spray QD spray 1 - med Ac cess[facility] Allergy 1-12 } 2 spray by refill ealt h Relief 50 00:00: intranasal mcg/actuati 00 route on nasal every day spray,suspe in each nsion nostril as needed as needed Advair 2019-10 No 1{puff} Q12H inhale 1 Acce ss[facility] Diskus 100 1-12 puff by [facility] mcg-50 00:00: inhalation mcg/dose 00 route 2 powder for times inhalation every day in the morning and evening approximat jaya 12 hours apart for asthma diazepam 10 2019-10 No 1{table QD take 1 A ccess[facility] mg tablet 1-12 t} tablet by ealt 00:00: oral route 00 every day as needed ProAir HFA 2019-10 No 1{puff} 6xD inhale 1 Access[facility] 90 1-12 puff by [facility] mcg/actuati 00:00: inhalation on aerosol 00 route inhaler every 4 hours as needed as needed sertraline 2019-10 No 1{table Q1D take 1 Ac cessH 100 mg 1-12 t} tablet by ealt tablet 00:00: oral route 00 every day tizanidine 2019-10 No TAKE 1 Acces s[facility] 4 mg tablet 1-12 TABLET BY [facility] 00:00: MOUTH 00 EVERY 6 TO 8 HOURS NEEDED. NOT TO EXCEED 3 DOSES IN 24 HOURS meloxicam 2019-10 No 2{table Q1D take 2 Acc essH 7.5 mg 1-12 t} tablet by ealt tablet 00:00: oral route 00 every day Klonopin 1 2019-10 No 1{table Q8H take 1 Ac cess[facility] mg tablet 1-12 t} tablet by ealth 00:00: oral route 00 3 times every day gabapentin 2019-10 No 3{capsu Q8H take 3 Ac cess[facility] 300 mg 1-12 le} capsule by [facility] capsule 00:00: oral route 00 3 times every day butalbital- 2019-10 No 1{capsu 6xD take 1 - 2 0 Access[facility] acetaminoph 1-12 le} capsule by Pt needs [facility] en-caffeine 00:00: oral route apt for 50 mg-325 00 every 4 further mg-40 mg hours as fills, capsule needed not --AG,RN to exceed 6 capsules per 24hrs as needed Flonase 2019-10 No 1{spray QD spray 1 - med Ac cess[facility] Allergy 1-12 } 2 spray by refill ealt h Relief 50 00:00: intranasal mcg/actuati 00 route on nasal every day spray,suspe in each nsion nostril as needed as needed Advair 2019-10 No 1{puff} Q12H inhale 1 Acce ss[facility] Diskus 100 1-12 puff by [facility] mcg-50 00:00: inhalation mcg/dose 00 route 2 powder for times inhalation every day in the morning and evening approximat jaya 12 hours apart for asthma diazepam 10 2019-10 No 1{table QD take 1 A ccess[facility] mg tablet 1-12 t} tablet by ealt 00:00: oral route 00 every day as needed ProAir HFA 2019-10 No 1{puff} 6xD inhale 1 Access[facility] 90 1-12 puff by [facility] mcg/actuati 00:00: inhalation on aerosol 00 route inhaler every 4 hours as needed as needed sertraline 2019-10 No 1{table Q1D take 1 Ac cess[facility] 100 mg 1-12 t} tablet by ealt tablet 00:00: oral route 00 every day tizanidine 2019-10 No TAKE 1 Acces s[facility] 4 mg tablet 1-12 TABLET BY [facility] 00:00: MOUTH 00 EVERY 6 TO 8 HOURS NEEDED. NOT TO EXCEED 3 DOSES IN 24 HOURS meloxicam 2019-10 No 2{table Q1D take 2 Acc essH 7.5 mg 1-12 t} tablet by ealt tablet 00:00: oral route 00 every day Klonopin 1 2019-10 No 1{table Q8H take 1 Ac cess[facility] mg tablet 1-12 t} tablet by ealt 00:00: oral route 00 3 times every day gabapentin 2019-10 No 3{capsu Q8H take 3 Ac cessH 300 mg 1-12 le} capsule by [facility] capsule 00:00: oral route 00 3 times every day butalbital- 2019-10 No 1{capsu 6xD take 1 - 2 0 Access[facility] acetaminoph 1-12 le} capsule by [facility] needs [facility] en-caffeine 00:00: oral route apt for 50 mg-325 00 every 4 further mg-40 mg hours as fills, capsule needed not --AG,RN to exceed 6 capsules per 24hrs as needed Flonase 2019-10 No 1{spray QD spray 1 - med Ac [facility] Allergy 1-12 } 2 spray by refill ealt h Relief 50 00:00: intranasal mcg/actuati 00 route on nasal every day spray,suspe in each nsion nostril as needed as needed Advair 2019-10 No 1{puff} Q12H inhale 1 Acce ss[facility] Diskus 100 1-12 puff by ealt mcg-50 00:00: inhalation mcg/dose 00 route 2 powder for times inhalation every day in the morning and evening approximat jaya 12 hours apart for asthma diazepam 10 2019-10 No 1{table QD take 1 A ccess[facility] mg tablet 1-12 t} tablet by [facility]alth 00:00: oral route 00 every day as needed ProAir HFA 2019-10 No 1{puff} 6xD inhale 1 Access[facility] 90 1-12 puff by ealt mcg/actuati 00:00: inhalation on aerosol 00 route inhaler every 4 hours as needed as needed sertraline 2019-10 No 1{table Q1D take 1 Ac cess[facility] 100 mg 1-12 t} tablet by ealth tablet 00:00: oral route 00 every day tizanidine 2019-10 No TAKE 1 Acces sH 4 mg tablet 1-12 TABLET BY [facility] 00:00: MOUTH 00 EVERY 6 TO 8 HOURS NEEDED. NOT TO EXCEED 3 DOSES IN 24 HOURS meloxicam 2019-10 No 2{table Q1D take 2 Acc essH 7.5 mg 1-12 t} tablet by ealth tablet 00:00: oral route 00 every day Klonopin 1 2019-10 No 1{table Q8H take 1 Ac cessH mg tablet 1-12 t} tablet by ealth 00:00: oral route 00 3 times every day gabapentin 2019-10 No 3{capsu Q8H take 3 Ac cessH 300 mg 1-12 le} capsule by ealt capsule 00:00: oral route 00 3 times every day butalbital- 2019-10 No 1{capsu 6xD take 1 - 2 0 AccessH acetaminoph 1-12 le} capsule by Pt needs ealth en-caffeine 00:00: oral route apt for 50 mg-325 00 every 4 further mg-40 mg hours as fills, capsule needed not --AG,RN to exceed 6 capsules per 24hrs as needed Flonase 2019-10 No 1{spray QD spray 1 - med Ac cessH Allergy 1-12 } 2 spray by refill ea h Relief 50 00:00: intranasal mcg/actuati 00 route on nasal every day spray,suspe in each nsion nostril as needed as needed Advair 2019-10 No 1{puff} Q12H inhale 1 Acce [facility]: inhalation mcg/dose 00 route 2 powder for times inhalation every day in the morning and evening approximat jaya 12 hours apart for asthma diazepam 10 2019-10 No 1{table QD take 1 A ccessH mg tablet 1-12 t} tablet by ealt 00:00: oral route 00 every day as needed ProAir HFA 2019-10 No 1{puff} 6xD inhale 1 Access[facility] 90 1-12 puff by [facility] mcg/actuati 00:00: inhalation on aerosol 00 route inhaler every 4 hours as needed as needed sertraline 2019-10 No 1{table Q1D take 1 Ac cessH 100 mg 1-12 t} tablet by [facility] tablet 00:00: oral route 00 every day tizanidine 2019-10 No TAKE 1 Acces sH 4 mg tablet 1-12 TABLET BY [facility] 00:00: MOUTH 00 EVERY 6 TO 8 HOURS NEEDED. NOT TO EXCEED 3 DOSES IN 24 HOURS meloxicam 2019-10 No 2{table Q1D take 2 Acc essH 7.5 mg 1-12 t} tablet by [facility]alt tablet 00:00: oral route 00 every day Klonopin 1 2019-10 No 1{table Q8H take 1 Ac cess[facility] mg tablet 1-12 t} tablet by [facility] 00:00: oral route 00 3 times every day gabapentin 2019-10 No 3{capsu Q8H take 3 Ac cessH 300 mg 1-12 le} capsule by [facility]alt capsule 00:00: oral route 00 3 times every day butalbital- 2019-10 No 1{capsu 6xD take 1 - 2 0 [facility] acetaminoph 1-12 le} capsule by Pt needs [facility]alt en-caffeine 00:00: oral route apt for 50 mg-325 00 every 4 further mg-40 mg hours as fills, capsule needed not --AG,RN to exceed 6 capsules per 24hrs as needed Flonase 2019-10 No 1{spray QD spray 1 - med Ac cess[facility] Allergy 1-12 } 2 spray by refill ealt h Relief 50 00:00: intranasal mcg/actuati 00 route on nasal every day spray,suspe in each nsion nostril as needed as needed Advair 2019-10 No 1{puff} Q12H inhale 1 Acce ssH Diskus 100 1-12 puff by ealt mcg-50 00:00: inhalation mcg/dose 00 route 2 powder for times inhalation every day in the morning and evening approximat jaya 12 hours apart for asthma diazepam 10 2019-10 No 1{table QD take 1 A ccess[facility] mg tablet 1-12 t} tablet by [facility] 00:00: oral route 00 every day as needed ProAir HFA 2019-10 No 1{puff} 6xD inhale 1 [facility] 90 1-12 puff by ealt mcg/actuati 00:00: inhalation on aerosol 00 route inhaler every 4 hours as needed as needed sertraline 2019-10 No 1{table Q1D take 1 Ac cess[facility] 100 mg 1-12 t} tablet by [facility] tablet 00:00: oral route 00 every day tizanidine 2019-10 No TAKE 1 Acces sH 4 mg tablet 1-12 TABLET BY ea th 00:00: MOUTH 00 EVERY 6 TO 8 HOURS NEEDED. NOT TO EXCEED 3 DOSES IN 24 HOURS meloxicam 2019-10 No 2{table Q1D take 2 Acc ess[facility] 7.5 mg 1-12 t} tablet by [facility] tablet 00:00: oral route 00 every day Klonopin 1 2019-10 No 1{table Q8H take 1 Ac cess[facility] mg tablet 1-12 t} tablet by [facility]alth 00:00: oral route 00 3 times every day gabapentin 2019-10 No 3{capsu Q8H take 3 Ac cessH 300 mg 1-12 le} capsule by [facility] capsule 00:00: oral route 00 3 times every day butalbital- 2019-10 No 1{capsu 6xD take 1 - 2 0 [facility] acetaminoph 1-12 le} capsule by Pt needs [facility] en-caffeine 00:00: oral route apt for 50 mg-325 00 every 4 further mg-40 mg hours as fills, capsule needed not --AG,RN to exceed 6 capsules per 24hrs as needed Flonase 2019-10 No 1{spray QD spray 1 - med Ac cess[facility] Allergy 1-12 } 2 spray by refill ealt h Relief 50 00:00: intranasal mcg/actuati 00 route on nasal every day spray,suspe in each nsion nostril as needed as needed Advair 2019-10 No 1{puff} Q12H inhale 1 Acce ss[facility] Diskus 100 1-12 puff by ealth mcg-50 00:00: inhalation mcg/dose 00 route 2 powder for times inhalation every day in the morning and evening approximat jaya 12 hours apart for asthma diazepam 10 2019-10 No 1{table QD take 1 A ccess[facility] mg tablet 1-12 t} tablet by ealth 00:00: oral route 00 every day as needed ProAir HFA 2019-10 No 1{puff} 6xD inhale 1 [facility] 90 1-12 puff by e[facility] mcg/actuati 00:00: inhalation on aerosol 00 route inhaler every 4 hours as needed as needed sertraline 2019-10 No 1{table Q1D take 1 Ac cess[facility] 100 mg 1-12 t} tablet by ealth tablet 00:00: oral route 00 every day tizanidine 2019-10 No TAKE 1 Acces s[facility] 4 mg tablet 1-12 TABLET BY eal th 00:00: MOUTH 00 EVERY 6 TO 8 HOURS NEEDED. NOT TO EXCEED 3 DOSES IN 24 HOURS meloxicam 2019-10 No 2{table Q1D take 2 Acc essH 7.5 mg 1-12 t} tablet by ealth tablet 00:00: oral route 00 every day gabapentin 2019-10 No 3{capsu Q8H take 3 Ac cessH 300 mg 1-12 le} capsule by ealth capsule 00:00: oral route 00 3 times every day butalbital- 2019-10 No 1{capsu 6xD take 1 - 2 11/21/ 0 Access[facility] acetaminoph 1-12 le} capsule by Pt needs ealth en-caffeine 00:00: oral route apt for 50 mg-325 00 every 4 further mg-40 mg hours as fills, capsule needed not --AG,RN to exceed 6 capsules per 24hrs as needed Flonase 2019-10 No 1{spray QD spray 1 - med Ac cess[facility] Allergy 1-12 } 2 spray by refill ealt h Relief 50 00:00: intranasal mcg/actuati 00 route on nasal every day spray,suspe in each nsion nostril as needed as needed Advair 2019-10 No 1{puff} Q12H inhale 1 Acce ssH Diskus 100 1-12 puff by [facility] mcg-50 00:00: inhalation mcg/dose 00 route 2 powder for times inhalation every day in the morning and evening approximat jaya 12 hours apart for asthma diazepam 10 2019-10 No 1{table QD take 1 A ccess[facility] mg tablet 1-12 t} tablet by ealth 00:00: oral route 00 every day as needed ProAir HFA 2019-10 No 1{puff} 6xD inhale 1 [facility] 90 1-12 puff by ealt mcg/actuati 00:00: inhalation on aerosol 00 route inhaler every 4 hours as needed as needed sertraline 2019-10 No 1{table Q1D take 1 Ac cess[facility] 100 mg 1-12 t} tablet by ealth tablet 00:00: oral route 00 every day tizanidine 2019-10 No TAKE 1 Acces [facility] 4 mg tablet 1-12 TABLET BY eal th 00:00: MOUTH 00 EVERY 6 TO 8 HOURS NEEDED. NOT TO EXCEED 3 DOSES IN 24 HOURS meloxicam 2019-10 No 2{table Q1D take 2 Acc ess[facility] 7.5 mg 1-12 t} tablet by ealth tablet 00:00: oral route 00 every day gabapentin 2019-10 No 3{capsu Q8H take 3 Ac cessH 300 mg 1-12 le} capsule by ealth capsule 00:00: oral route 00 3 times every day butalbital- 2019-10 No 1{capsu 6xD take 1 - 2 0 [facility] acetaminoph 1-12 le} capsule by Pt needs ealth en-caffeine 00:00: oral route apt for 50 mg-325 00 every 4 further mg-40 mg hours as fills, capsule needed not --AG,RN to exceed 6 capsules per 24hrs as needed Flonase 2019-10 No 1{spray QD spray 1 - med Ac cess[facility] Allergy 1-12 } 2 spray by refill [facility]alt h Relief 50 00:00: intranasal mcg/actuati 00 route on nasal every day spray,suspe in each nsion nostril as needed as needed Advair 2019-10 No 1{puff} Q12H inhale 1 Acce ss[facility] Diskus 100 1-12 puff by ealth mcg-50 00:00: inhalation mcg/dose 00 route 2 powder for times inhalation every day in the morning and evening approximat jaya 12 hours apart for asthma ProAir HFA 2019-10 No 1{puff} 6xD inhale 1 [facility] 90 1-12 puff by ealth mcg/actuati 00:00: inhalation on aerosol 00 route inhaler every 4 hours as needed as needed meloxicam 2019-10 No 2{table Q1D take 2 Acc ess[facility] 7.5 mg 1-12 t} tablet by ealth tablet 00:00: oral route 00 every day butalbital- 2019-10 No 1{capsu 6xD take 1 - 2 0 [facility] acetaminoph 1-12 le} capsule by Pt needs [facility] en-caffeine 00:00: oral route apt for 50 mg-325 00 every 4 further mg-40 mg hours as fills, capsule needed not --AG,RN to exceed 6 capsules per 24hrs as needed Flonase 2019-10 No 1{spray QD spray 1 - med Ac cess[facility] Allergy 1-12 } 2 spray by refill [facility]alt h Relief 50 00:00: intranasal mcg/actuati 00 route on nasal every day spray,suspe in each nsion nostril as needed as needed Advair 2019-10 No 1{puff} Q12H inhale 1 Acce ss[facility] Diskus 100 1-12 puff by ealth mcg-50 00:00: inhalation mcg/dose 00 route 2 powder for times inhalation every day in the morning and evening approximat jaya 12 hours apart for asthma ProAir HFA 2019-10 No 1{puff} 6xD inhale 1 [facility] 90 1-12 puff by ealth mcg/actuati 00:00: inhalation on aerosol 00 route inhaler every 4 hours as needed as needed meloxicam 2019-10 No 2{table Q1D take 2 Acc ess[facility] 7.5 mg 1-12 t} tablet by ealth tablet 00:00: oral route 00 every day butalbital- 2019-10 No 1{capsu 6xD take 1 - 2 0 [facility] acetaminoph 1-12 le} capsule by Pt needs [facility] en-caffeine 00:00: oral route apt for 50 mg-325 00 every 4 further mg-40 mg hours as fills, capsule needed not --AG,RN to exceed 6 capsules per 24hrs as needed Flonase 2019-10 No 1{spray QD spray 1 - med Ac cess[facility] Allergy 1-12 } 2 spray by refill [facility] h Relief 50 00:00: intranasal mcg/actuati 00 route on nasal every day spray,suspe in each nsion nostril as needed as needed Advair 2019-10 No 1{puff} Q12H inhale 1 Acce ss[facility] Diskus 100 1-12 puff by ealth [email or web address]-50 00:00: inhalation mcg/dose 00 route 2 powder for times inhalation every day in the morning and evening approximat jaya 12 hours apart for asthma ProAir HFA 2019-10 No 1{puff} 6xD inhale 1 [facility] 90 1-12 puff by e[facility] mcg/actuati 00:00: inhalation on aerosol 00 route inhaler every 4 hours as needed as needed meloxicam 2019-10 No 2{table Q1D take 2 Acc ess[facility] 7.5 mg 1-12 t} tablet by [facility] tablet 00:00: oral route 00 every day butalbital- 2019-10 No 1{capsu 6xD take 1 - 2 0 [facility] acetaminoph 1-12 le} capsule by Pt needs [facility] en-caffeine 00:00: oral route apt for 50 mg-325 00 every 4 further mg-40 mg hours as fills, capsule needed not --AG,RN to exceed 6 capsules per 24hrs as needed Flonase 2019-10 No 1{spray QD spray 1 - med Ac cess[facility] Allergy 1-12 } 2 spray by refill [facility] h Relief 50 00:00: intranasal mcg/actuati 00 route on nasal every day spray,suspe in each nsion nostril as needed as needed Advair 2019-10 No 1{puff} Q12H inhale 1 Acce ss[facility] Diskus 100 1-12 puff by ealth [email or web address]-50 00:00: inhalation mcg/dose 00 route 2 powder for times inhalation every day in the morning and evening approximat jaya 12 hours apart for asthma ProAir HFA 2019-10 No 1{puff} 6xD inhale 1 [facility] 90 1-12 puff by e[facility] mcg/actuati 00:00: inhalation on aerosol 00 route inhaler every 4 hours as needed as needed meloxicam 2019-10 No 2{table Q1D take 2 Acc ess[facility] 7.5 mg 1-12 t} tablet by [facility] tablet 00:00: oral route 00 every day butalbital- 2019-10 No 1{capsu 6xD take 1 - 2 0 [facility] acetaminoph 1-12 le} capsule by Pt needs [facility] en-caffeine 00:00: oral route apt for 50 mg-325 00 every 4 further mg-40 mg hours as fills, capsule needed not --AG,RN to exceed 6 capsules per 24hrs as needed Flonase 2019-10 No 1{spray QD spray 1 - med Ac cess[facility] Allergy 12 } 2 spray by refill [facility] Relief 50 00:00: intranasal mcg/actuati 00 route on nasal every day spray,suspe in each nsion nostril as needed as needed Advair 2019-10 No 1{puff} Q12H inhale 1 Acce ss[facility] Diskus 100 1-12 puff by ealth [email or web address]-50 00:00: inhalation mcg/dose 00 route 2 powder for times inhalation every day in the morning and evening approximat jaya 12 hours apart for asthma ProAir HFA 2019-10 No 1{puff} 6xD inhale 1 [facility] 90 1-12 puff by e[facility] mcg/actuati 00:00: inhalation on aerosol 00 route inhaler every 4 hours as needed as needed meloxicam 2019-10 No 2{table Q1D take 2 Acc ess[facility] 7.5 mg 1-12 t} tablet by [facility] tablet 00:00: oral route 00 every day butalbital- 2019-10 No 1{capsu 6xD take 1 - 2 0 [facility] acetaminoph 1-12 le} capsule by Pt needs [facility]alth en-caffeine 00:00: oral route apt for 50 mg-325 00 every 4 further mg-40 mg hours as fills, capsule needed not --AG,RN to exceed 6 capsules per 24hrs as needed Flonase 2019-10 No 1{spray QD spray 1 - med Ac cess[facility] Allergy 1-12 } 2 spray by refill [facility] h Relief 50 00:00: intranasal mcg/actuati 00 route on nasal every day spray,suspe in each nsion nostril as needed as needed Advair 2019-10 No 1{puff} Q12H inhale 1 Acce ssH Diskus 100 1-12 puff by ealth [email or web address]-50 00:00: inhalation mcg/dose 00 route 2 powder for times inhalation every day in the morning and evening approximat jaya 12 hours apart for asthma ProAir HFA 2019-10 No 1{puff} 6xD inhale 1 [facility] 90 1-12 puff by ealth mcg/actuati 00:00: inhalation on aerosol 00 route inhaler every 4 hours as needed as needed meloxicam 2019-10 No 2{table Q1D take 2 Acc ess[facility] 7.5 mg 1-12 t} tablet by ealth tablet 00:00: oral route 00 every day butalbital- 2019-10 No 1{capsu 6xD take 1 - 2 0 [facility] acetaminoph 1-12 le} capsule by Pt needs [facility] en-caffeine 00:00: oral route apt for 50 mg-325 00 every 4 further mg-40 mg hours as fills, capsule needed not --AG,RN to exceed 6 capsules per 24hrs as needed Flonase 2019-10 No 1{spray QD spray 1 - med Ac cess[facility] Allergy 1-12 } 2 spray by refill [facility] h Relief 50 00:00: intranasal mcg/actuati 00 route on nasal every day spray,suspe in each nsion nostril as needed as needed Advair 2019-10 No 1{puff} Q12H inhale 1 Acce ssH Diskus 100 1-12 puff by ealth [email or web address]-50 00:00: inhalation mcg/dose 00 route 2 powder for times inhalation every day in the morning and evening approximat jaya 12 hours apart for asthma ProAir HFA 2019-10 No 1{puff} 6xD inhale 1 [facility] 90 1-12 puff by e[facility] mcg/actuati 00:00: inhalation on aerosol 00 route inhaler every 4 hours as needed as needed meloxicam 2019-10 No 2{table Q1D take 2 Acc essH 7.5 mg 1-12 t} tablet by [facility] tablet 00:00: oral route 00 every day butalbital- 2019-10 No 1{capsu 6xD take 1 - 2 0 [facility] acetaminoph 1-12 le} capsule by Pt needs [facility] en-caffeine 00:00: oral route apt for 50 mg-325 00 every 4 further mg-40 mg hours as fills, capsule needed not --AG,RN to exceed 6 capsules per 24hrs as needed Flonase 2019-10 No 1{spray QD spray 1 - med Ac cess[facility] Allergy 1-12 } 2 spray by refill [facility] Relief 50 00:00: intranasal mcg/actuati 00 route on nasal every day spray,suspe in each nsion nostril as needed as needed Flonase 2019-10 No 1{spray QD spray 1 - med Ac cess[facility] Allergy 1-12 } 2 spray by refill [facility] h Relief 50 00:00: intranasal mcg/actuati 00 route on nasal every day spray,suspe in each nsion nostril as needed as needed Flonase 2019-10 No 1{spray QD spray 1 - med Ac cess[facility] Allergy 1-12 } 2 spray by refill [facility] Relief 50 00:00: intranasal mcg/actuati 00 route on nasal every day spray,suspe in each nsion nostril as needed as needed Flonase 2019-10 No 1{spray QD spray 1 - med Ac cess[facility] Allergy 1-12 } 2 spray by refill [facility] h Relief 50 00:00: intranasal mcg/actuati 00 route on nasal every day spray,suspe in each nsion nostril as needed as needed Flonase 2019-10 No 1{spray QD spray 1 - med Ac cess[facility] Allergy 1-12 } 2 spray by refill [facility] h Relief 50 00:00: intranasal mcg/actuati 00 route on nasal every day spray,suspe in each nsion nostril as needed as needed Flonase 2019-10 No 1{spray QD spray 1 - med Ac cess[facility] Allergy -12 } 2 spray by refill [facility] Relief 50 00:00: intranasal mcg/actuati 00 route on nasal every day spray,suspe in each nsion nostril as needed as needed Flonase 2019-10 No 1{spray QD spray 1 - med Ac [facility] Allergy 12 } 2 spray by refill [facility] Relief 50 00:00: intranasal mcg/actuati 00 route on nasal every day spray,suspe in each nsion nostril as needed as needed Advair 2019-10- No 1{puff} Q12H inhale 1 Acc ess[facility] Diskus 100 10-27 puff by e[facility] [email or web address]-50 00:00: 00:00 inhalation mcg/dose 00 :00 route 2 powder for times inhalation every day in the morning and evening approximat jaya 12 hours apart for asthma ProAir HFA 2019-10- No 1{puff} 6xD inhale 1 [facility] 90 10-2712 puff by e[facility] mcg/actuati 00:00: 00:00 inhalation on aerosol 00 :00 route inhaler every 4 hours as needed as needed meloxicam 2019-10- No 2{table Q1D take 2 Ac cess[facility] 7.5 mg 10-27 t} tablet by [facility] tablet 00:00: 00:00 oral route 00 :00 every day butalbital- 2019-10- No 1{capsu 6xD take 1 - 2 11/21/19 20 [facility] acetaminoph 10-27 le} capsule by Pt needs ealt en-caffeine 00:00: 00:00 oral route apt for 50 mg-325 00 :00 every 4 further mg-40 mg hours as fills, capsule needed not --AG,RN to exceed 6 capsules per 24hrs as needed Advair 2019-10- No 1{puff} Q12H inhale 1 Acc ess[facility] Diskus 100 10-2712 puff by ealth mcg-50 00:00: 00:00 inhalation mcg/dose 00 :00 route 2 powder for times inhalation every day in the morning and evening approximat jaya 12 hours apart for asthma ProAir HFA 2019-10- No 1{puff} 6xD inhale 1 [facility] 90 10-27-12 puff by ealth mcg/actuati 00:00: 00:00 inhalation on aerosol 00 :00 route inhaler every 4 hours as needed as needed meloxicam 2019-10- No 2{table Q1D take 2 Ac cess[facility] 7.5 mg 10-27 t} tablet by [facility] tablet 00:00: 00:00 oral route 00 :00 every day butalbital- 2019-10- No 1{capsu 6xD take 1 - 2 11/21/19 20 [facility] acetaminoph 10-27 le} capsule by Pt needs [facility]alth en-caffeine 00:00: 00:00 oral route apt for 50 mg-325 00 :00 every 4 further mg-40 mg hours as fills, capsule needed not --AG,RN to exceed 6 capsules per 24hrs as needed Advair 2019-10- No 1{puff} Q12H inhale 1 Acc ess[facility] Diskus 100 10-27 puff by ealth mcg-50 00:00: 00:00 inhalation mcg/dose 00 :00 route 2 powder for times inhalation every day in the morning and evening approximat jaya 12 hours apart for asthma ProAir HFA 2019-10- No 1{puff} 6xD inhale 1 [facility] 90 10-2712 puff by ealth mcg/actuati 00:00: 00:00 inhalation on aerosol 00 :00 route inhaler every 4 hours as needed as needed meloxicam 2019-10- No 2{table Q1D take 2 Ac cess[facility] 7.5 mg 10-27 t} tablet by [facility] tablet 00:00: 00:00 oral route 00 :00 every day butalbital- 2019-10- No 1{capsu 6xD take 1 - 2 11/21/19 20 [facility] acetaminoph 10-27 le} capsule by Pt needs [facility]alth en-caffeine 00:00: 00:00 oral route apt for 50 mg-325 00 :00 every 4 further mg-40 mg hours as fills, capsule needed not --AG,RN to exceed 6 capsules per 24hrs as needed Advair 2019-10- No 1{puff} Q12H inhale 1 Acc ess[facility] Diskus 100 10-2712 puff by ealth mcg-50 00:00: 00:00 inhalation mcg/dose 00 :00 route 2 powder for times inhalation every day in the morning and evening approximat jaya 12 hours apart for asthma ProAir HFA 2019-10- No 1{puff} 6xD inhale 1 [facility] 90 10-27-12 puff by e[facility] mcg/actuati 00:00: 00:00 inhalation on aerosol 00 :00 route inhaler every 4 hours as needed as needed meloxicam 2019-10- No 2{table Q1D take 2 Ac cess[facility] 7.5 mg 10-27 t} tablet by [facility] tablet 00:00: 00:00 oral route 00 :00 every day butalbital- 2019-10- No 1{capsu 6xD take 1 - 2 11/21/19 20 [facility] acetaminoph 10-27 le} capsule by Pt needs [facility] en-caffeine 00:00: 00:00 oral route apt for 50 mg-325 00 :00 every 4 further mg-40 mg hours as fills, capsule needed not --AG,RN to exceed 6 capsules per 24hrs as needed Advair 2019-10- No 1{puff} Q12H inhale 1 Acc ess[facility] Diskus 100 10-27-12 puff by e[facility] mcg-50 00:00: 00:00 inhalation mcg/dose 00 :00 route 2 powder for times inhalation every day in the morning and evening approximat jaya 12 hours apart for asthma ProAir HFA 2019-10- No 1{puff} 6xD inhale 1 [facility] 90 10-27-12 puff by e[facility] mcg/actuati 00:00: 00:00 inhalation on aerosol 00 :00 route inhaler every 4 hours as needed as needed meloxicam 2019-10- No 2{table Q1D take 2 Ac [facility] 7.5 mg 10-27 t} tablet by [facility] tablet 00:00: 00:00 oral route 00 :00 every day butalbital- 2019-10- No 1{capsu 6xD take 1 - 2 11/21/19 20 [facility] acetaminoph 10-27 le} capsule by Pt needs [facility]alth en-caffeine 00:00: 00:00 oral route apt for 50 mg-325 00 :00 every 4 further mg-40 mg hours as fills, capsule needed not --AG,RN to exceed 6 capsules per 24hrs as needed Advair 2019-10- No 1{puff} Q12H inhale 1 Acc essH Diskus 100 10-27 puff by ealth [email or web address]-50 00:00: 00:00 inhalation mcg/dose 00 :00 route 2 powder for times inhalation every day in the morning and evening approximat jaya 12 hours apart for asthma ProAir HFA 2019-10- No 1{puff} 6xD inhale 1 [facility] 90 10-27 puff by [facility] mcg/actuati 00:00: 00:00 inhalation on aerosol 00 :00 route inhaler every 4 hours as needed as needed meloxicam 2019-10- No 2{table Q1D take 2 Ac [facility] 7.5 mg 10-27 t} tablet by [facility] tablet 00:00: 00:00 oral route 00 :00 every day butalbital- 2019-10- No 1{capsu 6xD take 1 - 2 11/21/19 20 [facility] acetaminoph 10-27 le} capsule by Pt needs [facility] en-caffeine 00:00: 00:00 oral route apt for 50 mg-325 00 :00 every 4 further mg-40 mg hours as fills, capsule needed not --AG,RN to exceed 6 capsules per 24hrs as needed diazepam 10 2019-10- No 1{table QD take 1 [facility] mg tablet 10-27 t} tablet by [facility] 00:00: 00:00 oral route 00 :00 every day as needed sertraline 2019-10- No 1{table Q1D take 1 A ccess[facility] 100 mg 10-27 t} tablet by [facility] tablet 00:00: 00:00 oral route 00 :00 every day diazepam 10 2019-10- No 1{table QD take 1 [facility] mg tablet 10-27 t} tablet by [facility] 00:00: 00:00 oral route 00 :00 every day as needed sertraline 2019-10- No 1{table Q1D take 1 A ccess[facility] 100 mg 10-27- t} tablet by [facility] tablet 00:00: 00:00 oral route 00 :00 every day diazepam 10 2019-10- No 1{table QD take 1 [facility] mg tablet 10-27 t} tablet by [facility] 00:00: 00:00 oral route 00 :00 every day as needed sertraline 2019-10- No 1{table Q1D take 1 A c[facility] 100 mg 10-27 t} tablet by [facility] tablet 00:00: 00:00 oral route 00 :00 every day diazepam 10 2019-10- No 1{table QD take 1 [facility] mg tablet 10-27 t} tablet by [facility] 00:00: 00:00 oral route 00 :00 every day as needed sertraline 2019-10- No 1{table Q1D take 1 A [facility] 100 mg 10-27 t} tablet by [facility] tablet 00:00: 00:00 oral route 00 :00 every day diazepam 10 2019-10- No 1{table QD take 1 [facility] mg tablet 10-27 t} tablet by [facility] 00:00: 00:00 oral route 00 :00 every day as needed sertraline 2019-10- No 1{table Q1D take 1 A [facility] 100 mg 10-27 t} tablet by [facility] tablet 00:00: 00:00 oral route 00 :00 every day diazepam 10 2019-10- No 1{table QD take 1 [facility] mg tablet 10-27 t} tablet by [facility] 00:00: 00:00 oral route 00 :00 every day as needed sertraline 2019-10- No 1{table Q1D take 1 A c[facility] 100 mg 10-27 t} tablet by [facility] tablet 00:00: 00:00 oral route 00 :00 every day diazepam 10 2019-10- No 1{table QD take 1 [facility] mg tablet 10-27 t} tablet by [facility] 00:00: 00:00 oral route 00 :00 every day as needed sertraline 2019-10- No 1{table Q1D take 1 A c[facility] 100 mg 10-27- t} tablet by [facility] tablet 00:00: 00:00 oral route 00 :00 every day diazepam 10 2019-10- No 1{table QD take 1 [facility] mg tablet 10-27 t} tablet by [facility] 00:00: 00:00 oral route 00 :00 every day as needed sertraline 2019-10- No 1{table Q1D take 1 A [facility] 100 mg 10-27 t} tablet by [facility] tablet 00:00: 00:00 oral route 00 :00 every day diazepam 10 2019-10- No 1{table QD take 1 [facility] mg tablet 10-27 t} tablet by [facility] h 00:00: 00:00 oral route 00 :00 every day as needed sertraline 2019-10- No 1{table Q1D take 1 A c[facility] 100 mg 10-27 t} tablet by [facility] tablet 00:00: 00:00 oral route 00 :00 every day diazepam 10 2019-10- No 1{table QD take 1 [facility] mg tablet 10-27 t} tablet by [facility] 00:00: 00:00 oral route 00 :00 every day as needed sertraline 2019-10- No 1{table Q1D take 1 A [facility] 100 mg 10-27 t} tablet by [facility] tablet 00:00: 00:00 oral route 00 :00 every day diazepam 10 2019-10- No 1{table QD take 1 [facility] mg tablet 10-27 t} tablet by [facility] 00:00: 00:00 oral route 00 :00 every day as needed sertraline 2019-10- No 1{table Q1D take 1 A c[facility] 100 mg 10-27- t} tablet by [facility] tablet 00:00: 00:00 oral route 00 :00 every day diazepam 10 2019-10- No 1{table QD take 1 [facility] mg tablet 10-27 t} tablet by [facility] 00:00: 00:00 oral route 00 :00 every day as needed sertraline 2019-10- No 1{table Q1D take 1 A [facility] 100 mg 10-27 t} tablet by [facility] tablet 00:00: 00:00 oral route 00 :00 every day diazepam 10 2019-10- No 1{table QD take 1 [facility] mg tablet 10-27 t} tablet by [facility] 00:00: 00:00 oral route 00 :00 every day as needed sertraline 2019-10- No 1{table Q1D take 1 A c[facility] 100 mg 10-27 t} tablet by [facility] tablet 00:00: 00:00 oral route 00 :00 every day tizanidine 2019-10- No TAKE 1 [facility] 4 mg tablet 10-27 TABLET BY ea lth 00:00: 00:00 MOUTH 00 :00 EVERY 6 TO 8 HOURS NEEDED. NOT TO EXCEED 3 DOSES IN 24 HOURS gabapentin 2019-10- No 3{capsu Q8H take 3 A ccess[facility] 300 mg 10-27 le} capsule by [facility] capsule 00:00: 00:00 oral route 00 :00 3 times every day tizanidine 2019-10- No TAKE 1 [facility] ss[facility] 4 mg tablet 10-27 TABLET BY ea lth 00:00: 00:00 MOUTH 00 :00 EVERY 6 TO 8 HOURS NEEDED. NOT TO EXCEED 3 DOSES IN 24 HOURS gabapentin 2019-10- No 3{capsu Q8H take 3 A ccess[facility] 300 mg 10-27 le} capsule by [facility] capsule 00:00: 00:00 oral route 00 :00 3 times every day tizanidine 2019-10- No TAKE 1 [facility] ss[facility] 4 mg tablet 10-27 TABLET BY ea lth 00:00: 00:00 MOUTH 00 :00 EVERY 6 TO 8 HOURS NEEDED. NOT TO EXCEED 3 DOSES IN 24 HOURS gabapentin 2019-10- No 3{capsu Q8H take 3 A ccess[facility] 300 mg 10-27 le} capsule by [facility] capsule 00:00: 00:00 oral route 00 :00 3 times every day tizanidine 2019-10- No TAKE 1 [facility] ss[facility] 4 mg tablet 10-27 TABLET BY ea lth 00:00: 00:00 MOUTH 00 :00 EVERY 6 TO 8 HOURS NEEDED. NOT TO EXCEED 3 DOSES IN 24 HOURS gabapentin 2019-10- No 3{capsu Q8H take 3 A ccess[facility] 300 mg 10-27 le} capsule by [facility] capsule 00:00: 00:00 oral route 00 :00 3 times every day tizanidine 2019-10- No TAKE 1 [facility]ce ssH 4 mg tablet 10-27 TABLET BY [facility] 00:00: 00:00 MOUTH 00 :00 EVERY 6 TO 8 HOURS NEEDED. NOT TO EXCEED 3 DOSES IN 24 HOURS gabapentin 2019-10- No 3{capsu Q8H take 3 A ccessH 300 mg 10-27 le} capsule by [facility] 00:00: 00:00 oral route 00 :00 3 times every day tizanidine 2019-10- No TAKE 1 [facility] ssH 4 mg tablet 10-27 TABLET BY [facility] 00:00: 00:00 MOUTH 00 :00 EVERY 6 TO 8 HOURS NEEDED. NOT TO EXCEED 3 DOSES IN 24 HOURS gabapentin 2019-10- No 3{capsu Q8H take 3 A ccessH 300 mg 10-27 le} capsule by [facility] 00:00: 00:00 oral route 00 :00 3 times every day tizanidine 2019-10- No TAKE 1 [facility] ssH 4 mg tablet 10-27 TABLET BY [facility] 00:00: 00:00 MOUTH 00 :00 EVERY 6 TO 8 HOURS NEEDED. NOT TO EXCEED 3 DOSES IN 24 HOURS gabapentin 2019-10- No 3{capsu Q8H take 3 A ccessH 300 mg 10-27 le} capsule by [facility] 00:00: 00:00 oral route 00 :00 3 times every day tizanidine 2019-10- No TAKE 1 [facility] ssH 4 mg tablet 10-27 TABLET BY [facility] 00:00: 00:00 MOUTH 00 :00 EVERY 6 TO 8 HOURS NEEDED. NOT TO EXCEED 3 DOSES IN 24 HOURS gabapentin 2019-10- No 3{capsu Q8H take 3 A ccessH 300 mg 10-27 le} capsule by [facility] 00:00: 00:00 oral route 00 :00 3 times every day tizanidine 2019-10- No TAKE 1 [facility] ssH 4 mg tablet 10-27 TABLET BY [facility] 00:00: 00:00 MOUTH 00 :00 EVERY 6 TO 8 HOURS NEEDED. NOT TO EXCEED 3 DOSES IN 24 HOURS gabapentin 2019-10- No 3{capsu Q8H take 3 A ccessH 300 mg 10-27 le} capsule by [facility] 00:00: 00:00 oral route 00 :00 3 times every day tizanidine 2019-10- No TAKE 1 [facility] ssH 4 mg tablet 10-27 TABLET BY [facility] 00:00: 00:00 MOUTH 00 :00 EVERY 6 TO 8 HOURS NEEDED. NOT TO EXCEED 3 DOSES IN 24 HOURS gabapentin 2019-10- No 3{capsu Q8H take 3 A ccessH 300 mg 10-27 le} capsule by [facility] 00:00: 00:00 oral route 00 :00 3 times every day tizanidine 2019-10- No TAKE 1 [facility]ce ssH 4 mg tablet 10-27 TABLET BY [facility] 00:00: 00:00 MOUTH 00 :00 EVERY 6 TO 8 HOURS NEEDED. NOT TO EXCEED 3 DOSES IN 24 HOURS gabapentin 2019-10- No 3{capsu Q8H take 3 A ccessH 300 mg 10-27 le} capsule by [facility] 00:00: 00:00 oral route 00 :00 3 times every day tizanidine 2019-10- No TAKE 1 Acce ssH 4 mg tablet 10-27 TABLET BY [facility] 00:00: 00:00 MOUTH 00 :00 EVERY 6 TO 8 HOURS NEEDED. NOT TO EXCEED 3 DOSES IN 24 HOURS gabapentin 2019-10- No 3{capsu Q8H take 3 A ccessH 300 mg 10-27 le} capsule by [facility] 00:00: 00:00 oral route 00 :00 3 times every day tizanidine 2019-10- No TAKE 1 [facility] ssH 4 mg tablet 10-27 TABLET BY [facility] 00:00: 00:00 MOUTH 00 :00 EVERY 6 TO 8 HOURS NEEDED. NOT TO EXCEED 3 DOSES IN 24 HOURS gabapentin 2019-10- No 3{capsu Q8H take 3 A ccessH 300 mg 10-27 le} capsule by [facility] 00:00: 00:00 oral route 00 :00 3 times every day Klonopin 1 2019-10- No 1{table Q8H take 1 A ccessH mg tablet 10-27 t} tablet by [facility] 00:00: 00:00 oral route 00 :00 3 times every day Klonopin 1 2019-10- No 1{table Q8H take 1 A ccessH mg tablet 10-27 t} tablet by [facility] 00:00: 00:00 oral route 00 :00 3 times every day Klonopin 1 2019-10- No 1{table Q8H take 1 A ccessH mg tablet 10-27 t} tablet by [facility] 00:00: 00:00 oral route 00 :00 3 times every day Klonopin 1 2019-10- No 1{table Q8H take 1 A ccessH mg tablet 10-27 t} tablet by [facility] 00:00: 00:00 oral route 00 :00 3 times every day Klonopin 1 2019- 2020- No 1{table Q8H take 1 A ccessH mg tablet 10-27 t} tablet by [facility] 00:00: 00:00 oral route 00 :00 3 times every day Klonopin 1 2019-2019- No 1{table Q8H take 1 A ccessH mg tablet 10-27 t} tablet by [facility] 00:00: 00:00 oral route 00 :00 3 times every day Klonopin 1 2019-2019- No 1{table Q8H take 1 A ccessH mg tablet 10-27 t} tablet by [facility] 00:00: 00:00 oral route 00 :00 3 times every day Klonopin 1 2019-2019- No 1{table Q8H take 1 A ccessH mg tablet 10-27 t} tablet by [facility] 00:00: 00:00 oral route 00 :00 3 times every day Klonopin 1 2019- 2020- No 1{table Q8H take 1 A ccessH mg tablet 10-27 t} tablet by [facility] 00:00: 00:00 oral route 00 :00 3 times every day Klonopin 1 2019- 2020- No 1{table Q8H take 1 A ccessH mg tablet 10-27 t} tablet by [facility] 00:00: 00:00 oral route 00 :00 3 times every day Klonopin 1 2019- 2020- No 1{table Q8H take 1 A ccessH mg tablet 10-27 t} tablet by [facility] 00:00: 00:00 oral route 00 :00 3 times every day Klonopin 1 2019- 2020- No 1{table Q8H take 1 A ccessH mg tablet 10-27 t} tablet by [facility] 00:00: 00:00 oral route 00 :00 3 times every day Klonopin 1 2019- 2020- No 1{table Q8H take 1 A ccessH mg tablet 10-27 t} tablet by [facility] 00:00: 00:00 oral route 00 :00 3 times every day Klonopin 1 2019- 2020- No 1{table Q8H take 1 A ccessH mg tablet 10-27 t} tablet by [facility] 00:00: 00:00 oral route 00 :00 3 times every day Klonopin 1 2019- 2020- No 1{table Q8H take 1 A ccessH mg tablet 10-27 t} tablet by [facility] 00:00: 00:00 oral route 00 :00 3 times every day Anusol-HC 2019-10 2020- No 1{suppo Q12H insert 1 Access[facility] 25 mg 10-27 sitory} suppos[facility] rectal 00:00: 00:00 y by suppository 00 :00 rectal route 2 times every day for 2 weeks Anusol-HC 2019-10 2020- No 1{suppo Q12H insert 1 AccessH 25 mg 10-27 sitory} suppositor [facility] rectal 00:00: 00:00 y by suppository 00 :00 rectal route 2 times every day for 2 weeks [facility] 2019-10- No 1{suppo Q12H insert 1 AccessH 25 mg -09-09 sitory} suppositor [facility] rectal 00:00: 00:00 y by suppository 00 :00 rectal route 2 times every day for 2 weeks [facility] 2019-10- No 1{suppo Q12H insert 1 Access[facility] 25 mg -09-09 sitory} suppositor [facility] rectal 00:00: 00:00 y by suppository 00 :00 rectal route 2 times every day for 2 weeks [facility] 2019-10- No 1{suppo Q12H insert 1 Access[facility] 25 mg -09-09 sitory} suppositor [facility] rectal 00:00: 00:00 y by suppository 00 :00 rectal route 2 times every day for 2 weeks [facility] 2019-10- No 1{suppo Q12H insert 1 Access[facility] 25 mg 10-27 sitory} suppositor [facility] rectal 00:00: 00:00 y by suppository 00 :00 rectal route 2 times every day for 2 weeks [facility] 2019-10- No 1{suppo Q12H insert 1 Access[facility] 25 mg 10-27 sitory} suppositor [facility] rectal 00:00: 00:00 y by suppository 00 :00 rectal route 2 times every day for 2 weeks [facility] 2019-10- No 1{suppo Q12H insert 1 Access[facility] 25 mg -09-09 sitory} suppositor [facility] rectal 00:00: 00:00 y by suppository 00 :00 rectal route 2 times every day for 2 weeks [facility] 2019-10- No 1{suppo Q12H insert 1 Access[facility] 25 mg -25 sitory} suppositor [facility] rectal 00:00: 00:00 y by suppository 00 :00 rectal route 2 times every day for 2 weeks [facility] 2019-10- No 1{suppo Q12H insert 1 Access[facility] 25 mg -25 sitory} suppositor [facility] rectal 00:00: 00:00 y by suppository 00 :00 rectal route 2 times every day for 2 weeks [facility] 2019-10- No 1{suppo Q12H insert 1 Access[facility] 25 mg -09-09 sitory} suppositor [facility] rectal 00:00: 00:00 y by suppository 00 :00 rectal route 2 times every day for 2 weeks [facility] 2019-10- No 1{suppo Q12H insert 1 Access[facility] 25 mg -09-09 sitory} suppositor [facility] rectal 00:00: 00:00 y by suppository 00 :00 rectal route 2 times every day for 2 weeks [facility] 2019-10- No 1{suppo Q12H insert 1 Access[facility] 25 mg -09-09 sitory} suppositor [facility] rectal 00:00: 00:00 y by suppository 00 :00 rectal route 2 times every day for 2 weeks [facility] 2019-10- No 1{suppo Q12H insert 1 Access[facility] 25 mg 10-27 sitory} suppositor [facility] rectal 00:00: 00:00 y by suppository 00 :00 rectal route 2 times every day for 2 weeks [facility] 2019-10- No 1{suppo Q12H insert 1 Access[facility] 25 mg 10-2725 sitory} suppositor [facility] rectal 00:00: 00:00 y by suppository 00 :00 rectal route 2 times every day for 2 weeks [facility] 2019-10- No 1{suppo Q12H insert 1 Access[facility] 25 mg -25 sitory} suppositor [facility] rectal 00:00: 00:00 y by suppository 00 :00 rectal route 2 times every day for 2 weeks [facility] 2019-10- No 1{suppo Q12H insert 1 Access[facility] 25 mg -25 sitory} suppositor [facility] rectal 00:00: 00:00 y by suppository 00 :00 rectal route 2 times every day for 2 weeks [facility] 2020-1 2020- No 1{suppo Q12H insert 1 Access[facility] 25 mg -09-09 sitory} suppositor [facility] rectal 00:00: 00:00 y by suppository 00 :00 rectal route 2 times every day for 2 weeks [facility] 2019-10 2020- No 1{suppo Q12H insert 1 Access[facility] 25 mg -09-09 sitory} suppositor [facility] rectal 00:00: 00:00 y by suppository 00 :00 rectal route 2 times every day for 2 weeks [facility] 2019-10 2020- No 1{suppo Q12H insert 1 Access[facility] 25 mg -09-09 sitory} suppositor [facility] rectal 00:00: 00:00 y by suppository 00 :00 rectal route 2 times every day for 2 weeks [facility] 2019-10 2020- No 1{suppo Q12H insert 1 Access[facility] 25 mg 10-27 sitory} suppositor [facility] rectal 00:00: 00:00 y by suppository 00 :00 rectal route 2 times every day for 2 weeks Diflucan 2019-10 No 1{table Q1D take 1 Acce ssH 150 mg 1-11 t} tablet by [facility] tablet 00:00: oral route 00 every day once Diflucan 2019- No 1{table Q1D take 1 Acce ssH 150 mg 1-11 t} tablet by [facility] tablet 00:00: oral route 00 every day once Diflucan 2019- No 1{table Q1D take 1 Acce ssH 150 mg 1-11 t} tablet by [facility] tablet 00:00: oral route 00 every day once Diflucan 2019- No 1{table Q1D take 1 Acce ssH 150 mg 1-11 t} tablet by [facility] tablet 00:00: oral route 00 every day once Diflucan 2020- No 1{table Q1D take 1 Acce ssH 150 mg 1-11 t} tablet by [facility] tablet 00:00: oral route 00 every day once Diflucan 2019- No 1{table Q1D take 1 Acce ssH 150 mg 1-11 t} tablet by [facility] tablet 00:00: oral route 00 every day once Diflucan 2020-1 No 1{table Q1D take 1 Acce ssH 150 mg 1-11 t} tablet by [facility] tablet 00:00: oral route 00 every day once Diflucan 2020-1 No 1{table Q1D take 1 Acce ssH 150 mg 1-11 t} tablet by [facility] tablet 00:00: oral route 00 every day once Diflucan 2020-1 No 1{table Q1D take 1 Acce ssH 150 mg 1-11 t} tablet by [facility] tablet 00:00: oral route 00 every day once Diflucan 2020-1 No 1{table Q1D take 1 Acce ssH 150 mg 1-11 t} tablet by [facility] tablet 00:00: oral route 00 every day once Diflucan 2020- No 1{table Q1D take 1 Acce ssH 150 mg 1-11 t} tablet by [facility] tablet 00:00: oral route 00 every day once Diflucan 2020- No 1{table Q1D take 1 Acce ssH 150 mg 1-11 t} tablet by [facility] tablet 00:00: oral route 00 every day once Diflucan 2020- No 1{table Q1D take 1 Acce ssH 150 mg 1-11 t} tablet by [facility] tablet 00:00: oral route 00 every day once Diflucan 2020- No 1{table Q1D take 1 Acce ssH 150 mg 1-11 t} tablet by [facility] tablet 00:00: oral route 00 every day once Diflucan 2020-1 No 1{table Q1D take 1 Acce ssH 150 mg 1-11 t} tablet by [facility] tablet 00:00: oral route 00 every day once Diflucan 2020-2020- No 1{table Q1D take 1 Acc essH 150 mg 1-11 03-12 t} tablet by [facility] tablet 00:00: 00:00 oral route 00 :00 every day once Diflucan 2020-2020- No 1{table Q1D take 1 Acc essH 150 mg 1-11 03-12 t} tablet by [facility] tablet 00:00: 00:00 oral route 00 :00 every day once Diflucan 2020-2020- No 1{table Q1D take 1 Acc essH 150 mg 1-11 03-12 t} tablet by [facility] tablet 00:00: 00:00 oral route 00 :00 every day once Diflucan 2019-10- No 1{table Q1D take 1 Acc essH 150 mg -11 -12 t} tablet by [facility] tablet 00:00: 00:00 oral route 00 :00 every day once Diflucan 2019-10- No 1{table Q1D take 1 Acc essH 150 mg 10-26-12 t} tablet by [facility] tablet 00:00: 00:00 oral route 00 :00 every day once Diflucan 2019-10- No 1{table Q1D take 1 Acc essH 150 mg -11 -12 t} tablet by [facility] tablet 00:00: 00:00 oral route 00 :00 every day once Eszopiclone 2019-10 No 1{table Q1D TAKE 1 A ccessH 1mg Tablet 1-03 t} TABLET BY [facility] 00:00: ORAL ROUTE 00 EVERY DAY AT BEDTIME Eszopiclone 2019- No 1{table Q1D TAKE 1 A ccessH 1mg Tablet 1-03 t} TABLET BY [facility] 00:00: ORAL ROUTE 00 EVERY DAY AT BEDTIME Eszopiclone 2020- No 1{table Q1D TAKE 1 A ccessH 1mg Tablet 1-03 t} TABLET BY [facility] 00:00: ORAL ROUTE 00 EVERY DAY AT BEDTIME Eszopiclone 2020- No 1{table Q1D TAKE 1 A ccessH 1mg Tablet 1-03 t} TABLET BY [facility] 00:00: ORAL ROUTE 00 EVERY DAY AT BEDTIME Eszopiclone 2019- No 1{table Q1D TAKE 1 A ccessH 1mg Tablet 1-03 t} TABLET BY [facility] 00:00: ORAL ROUTE 00 EVERY DAY AT BEDTIME Eszopiclone 2020- No 1{table Q1D TAKE 1 A ccessH 1mg Tablet 1-03 t} TABLET BY [facility] 00:00: ORAL ROUTE 00 EVERY DAY AT BEDTIME Eszopiclone 2019- No 1{table Q1D TAKE 1 A ccessH 1mg Tablet 1-03 t} TABLET BY [facility] 00:00: ORAL ROUTE 00 EVERY DAY AT BEDTIME Eszopiclone 2019- No 1{table Q1D TAKE 1 A ccessH 1mg Tablet 1-03 t} [facility]: ORAL ROUTE 00 EVERY DAY AT BEDTIME Eszopiclone 2019-10 No 1{table Q1D TAKE 1 A ccessH 1mg Tablet 1-03 t} [facility] 00:00: ORAL ROUTE 00 EVERY DAY AT BEDTIME Eszopiclone 2019-2020- No 1{table Q1D TAKE 1 [facility] 1mg Tablet 1-03 -22 t} TABLET BY [facility] 00:00: 00:00 ORAL ROUTE 00 :00 EVERY DAY AT BEDTIME Eszopiclone 2019-2020- No 1{table Q1D TAKE 1 [facility] 1mg Tablet 1-03 - t} TABLET BY [facility] 00:00: 00:00 ORAL ROUTE 00 :00 EVERY DAY AT BEDTIME Eszopiclone 2019-2020- No 1{table Q1D TAKE 1 [facility] 1mg Tablet 1-03 - t} TABLET BY [facility] 00:00: 00:00 ORAL ROUTE 00 :00 EVERY DAY AT BEDTIME Eszopiclone 2019-2020- No 1{table Q1D TAKE 1 [facility] 1mg Tablet 1-03 - t} TABLET BY [facility] 00:00: 00:00 ORAL ROUTE 00 :00 EVERY DAY AT BEDTIME Eszopiclone 2019-2020- No 1{table Q1D TAKE 1 [facility] 1mg Tablet 1-03 - t} TABLET BY [facility] 00:00: 00:00 ORAL ROUTE 00 :00 EVERY DAY AT BEDTIME Eszopiclone 2019-2020- No 1{table Q1D TAKE 1 [facility] 1mg Tablet 1-03 - t} TABLET BY [facility] 00:00: 00:00 ORAL ROUTE 00 :00 EVERY DAY AT BEDTIME Eszopiclone 2019-2020- No 1{table Q1D TAKE 1 [facility] 1mg Tablet 1-03 - t} TABLET BY [facility] 00:00: 00:00 ORAL ROUTE 00 :00 EVERY DAY AT BEDTIME Eszopiclone 2019-2020- No 1{table Q1D TAKE 1 [facility] 1mg Tablet 1-03 -22 t} TABLET BY [facility] 00:00: 00:00 ORAL ROUTE 00 :00 EVERY DAY AT BEDTIME Eszopiclone 2019-10- No 1{table Q1D TAKE 1 [facility] 1mg Tablet 10-18 t} TABLET BY [facility] 00:00: 00:00 ORAL ROUTE 00 :00 EVERY DAY AT BEDTIME Eszopiclone 2019-10- No 1{table Q1D TAKE 1 [facility] 1mg Tablet 10-18 t} TABLET BY [facility] 00:00: 00:00 ORAL ROUTE 00 :00 EVERY DAY AT BEDTIME Eszopiclone 2019-10- No 1{table Q1D TAKE 1 [facility] 1mg Tablet 10-18 t} TABLET BY [facility] 00:00: 00:00 ORAL ROUTE 00 :00 EVERY DAY AT BEDTIME Eszopiclone 2019-10- No 1{table Q1D TAKE 1 [facility] 1mg Tablet 10-18 t} TABLET BY [facility] 00:00: 00:00 ORAL ROUTE 00 :00 EVERY DAY AT BEDTIME Eszopiclone 2019-10- No 1{table Q1D TAKE 1 [facility] 1mg Tablet 10-18 t} TABLET BY [facility] 00:00: 00:00 ORAL ROUTE 00 :00 EVERY DAY AT BEDTIME Meloxicam 2019-10 No 2{table Q1D TAKE 2 Acc essH 7.5mg 0-20 t} TABLET BY [facility] Table[facility] 00:00: ORAL ROUTE 00 EVERY DAY NEEDED Clonazepam 2020-1 No 1{table Q8H TAKE 1 Ac cessH 1mg Tablet 0-20 t} TABLET BY [facility] 00:00: ORAL ROUTE 00 3 TIMES EVERY DAY NEEDED FOR ANXIETY Meloxicam 2019-10 No 2{table Q1D TAKE 2 Acc essH 7.5mg 0-20 t} TABLET BY [facility] Tablet 00:00: ORAL ROUTE 00 EVERY DAY NEEDED Clonazepam 2020-1 No 1{table Q8H TAKE 1 Ac cessH 1mg Tablet 0-20 t} TABLET BY [facility] 00:00: ORAL ROUTE 00 3 TIMES EVERY DAY NEEDED FOR ANXIETY Meloxicam 2019- 2020- No 2{table Q1D TAKE 2 Ac cessH 7.5mg 0-20 11-12 t} TABLET BY [facility] 00:00: 00:00 ORAL ROUTE 00 :00 EVERY DAY NEEDED Clonazepam 2019- 2020- No 1{table Q8H TAKE 1 A ccessH 1mg Tablet 0-20 11-12 t} TABLET BY [facility] 00:00: 00:00 ORAL ROUTE 00 :00 3 TIMES EVERY DAY NEEDED FOR ANXIETY Meloxicam 2019- 2020- No 2{table Q1D TAKE 2 Ac cessH 7.5mg 0-20 11-12 t} TABLET BY [facility] 00:00: 00:00 ORAL ROUTE 00 :00 EVERY DAY NEEDED Clonazepam 2019- 2020- No 1{table Q8H TAKE 1 A ccessH 1mg Tablet 0-20 11-12 t} TABLET BY [facility] 00:00: 00:00 ORAL ROUTE 00 :00 3 TIMES EVERY DAY NEEDED FOR ANXIETY Meloxicam 2019- 2020- No 2{table Q1D TAKE 2 Ac cessH 7.5mg 0-20 11-12 t} TABLET BY [facility] 00:00: 00:00 ORAL ROUTE 00 :00 EVERY DAY NEEDED Clonazepam 2019- 2020- No 1{table Q8H TAKE 1 A ccessH 1mg Tablet 0-20 11-12 t} TABLET BY [facility] 00:00: 00:00 ORAL ROUTE 00 :00 3 TIMES EVERY DAY NEEDED FOR ANXIETY Meloxicam 2019- 2020- No 2{table Q1D TAKE 2 Ac cessH 7.5mg 0-20 11-12 t} TABLET BY [facility] 00:00: 00:00 ORAL ROUTE 00 :00 EVERY DAY NEEDED Clonazepam 2019- 2020- No 1{table Q8H TAKE 1 A ccessH 1mg Tablet 0-20 11-12 t} TABLET BY [facility] 00:00: 00:00 ORAL ROUTE 00 :00 3 TIMES EVERY DAY NEEDED FOR ANXIETY Meloxicam 2019- 2020- No 2{table Q1D TAKE 2 Ac cessH 7.5mg 0-20 11-12 t} TABLET BY [facility] 00:00: 00:00 ORAL ROUTE 00 :00 EVERY DAY NEEDED Clonazepam 2019- 2020- No 1{table Q8H TAKE 1 A ccessH 1mg Tablet 0-20 11-12 t} TABLET BY [facility] 00:00: 00:00 ORAL ROUTE 00 :00 3 TIMES EVERY DAY NEEDED FOR ANXIETY Meloxicam 2019- 2020- No 2{table Q1D TAKE 2 Ac cessH 7.5mg 0-20 11-12 t} TABLET BY [facility] 00:00: 00:00 ORAL ROUTE 00 :00 EVERY DAY NEEDED Clonazepam 2019- 2020- No 1{table Q8H TAKE 1 A ccessH 1mg Tablet 0-20 11-12 t} TABLET BY [facility] 00:00: 00:00 ORAL ROUTE 00 :00 3 TIMES EVERY DAY NEEDED FOR ANXIETY Meloxicam 2019- 2020- No 2{table Q1D TAKE 2 Ac cessH 7.5mg 0-20 11-12 t} TABLET BY [facility] 00:00: 00:00 ORAL ROUTE 00 :00 EVERY DAY NEEDED Clonazepam 2019-2019- No 1{table Q8H TAKE 1 A ccessH 1mg Tablet 0-20 11-12 t} TABLET BY [facility] 00:00: 00:00 ORAL ROUTE 00 :00 3 TIMES EVERY DAY NEEDED FOR ANXIETY Meloxicam 2019- 2020- No 2{table Q1D TAKE 2 Ac cessH 7.5mg 0-20 11-12 t} TABLET BY [facility] 00:00: 00:00 ORAL ROUTE 00 :00 EVERY DAY NEEDED Clonazepam 2019- 2020- No 1{table Q8H TAKE 1 A ccessH 1mg Tablet 0-20 11-12 t} TABLET BY [facility] 00:00: 00:00 ORAL ROUTE 00 :00 3 TIMES EVERY DAY NEEDED FOR ANXIETY Meloxicam 2019- 2020- No 2{table Q1D TAKE 2 Ac cessH 7.5mg 0-20 11-12 t} TABLET BY [facility] 00:00: 00:00 ORAL ROUTE 00 :00 EVERY DAY NEEDED Clonazepam 2019- 2020- No 1{table Q8H TAKE 1 A ccessH 1mg Tablet 0-20 11-12 t} TABLET BY [facility] 00:00: 00:00 ORAL ROUTE 00 :00 3 TIMES EVERY DAY NEEDED FOR ANXIETY Meloxicam 2019- 2020- No 2{table Q1D TAKE 2 Ac cessH 7.5mg 0-20 11-12 t} TABLET BY [facility] 00:00: 00:00 ORAL ROUTE 00 :00 EVERY DAY NEEDED Clonazepam 2019- 2020- No 1{table Q8H TAKE 1 A ccessH 1mg Tablet 0-20 11-12 t} TABLET BY [facility] 00:00: 00:00 ORAL ROUTE 00 :00 3 TIMES EVERY DAY NEEDED FOR ANXIETY Meloxicam 2019-10 2020- No 2{table Q1D TAKE 2 Ac cessH 7.5mg 0-20 11-12 t} TABLET BY [facility] 00:00: 00:00 ORAL ROUTE 00 :00 EVERY DAY NEEDED Clonazepam 2019-10 2020- No 1{table Q8H TAKE 1 A ccessH 1mg Tablet 0-20 11-12 t} TABLET BY [facility] 00:00: 00:00 ORAL ROUTE 00 :00 3 TIMES EVERY DAY NEEDED FOR ANXIETY Meloxicam 2019-10 2020- No 2{table Q1D TAKE 2 Ac cessH 7.5mg 0-20 11-12 t} TABLET BY [facility] 00:00: 00:00 ORAL ROUTE 00 :00 EVERY DAY NEEDED Clonazepam 2019-10 2020- No 1{table Q8H TAKE 1 A ccessH 1mg Tablet 0-20 11-12 t} TABLET BY [facility] 00:00: 00:00 ORAL ROUTE 00 :00 3 TIMES EVERY DAY NEEDED FOR ANXIETY Meloxicam 2019-10 2020- No 2{table Q1D TAKE 2 Ac cessH 7.5mg 0-20 11-12 t} TABLET BY [facility] 00:00: 00:00 ORAL ROUTE 00 :00 EVERY DAY NEEDED Clonazepam 2019- 2020- No 1{table Q8H TAKE 1 A ccessH 1mg Tablet 0-20 11-12 t} TABLET BY [facility] 00:00: 00:00 ORAL ROUTE 00 :00 3 TIMES EVERY DAY NEEDED FOR ANXIETY Meloxicam 2019-10 2020- No 2{table Q1D TAKE 2 Ac cessH 7.5mg 0-20 11-12 t} TABLET BY [facility] 00:00: 00:00 ORAL ROUTE 00 :00 EVERY DAY NEEDED Clonazepam 2019- 2020- No 1{table Q8H TAKE 1 A ccessH 1mg Tablet 0-20 11-12 t} TABLET BY [facility] 00:00: 00:00 ORAL ROUTE 00 :00 3 TIMES EVERY DAY NEEDED FOR ANXIETY Meloxicam 2019-10 2020- No 2{table Q1D TAKE 2 Ac cessH 7.5mg 0-20 11-12 t} TABLET BY [facility] 00:00: 00:00 ORAL ROUTE 00 :00 EVERY DAY NEEDED Clonazepam 2019- 2020- No 1{table Q8H TAKE 1 A ccessH 1mg Tablet 0-20 11-12 t} TABLET BY [facility] 00:00: 00:00 ORAL ROUTE 00 :00 3 TIMES EVERY DAY NEEDED FOR ANXIETY Meloxicam 2019-10 2020- No 2{table Q1D TAKE 2 Ac cessH 7.5mg 0-20 11-12 t} TABLET BY [facility] 00:00: 00:00 ORAL ROUTE 00 :00 EVERY DAY NEEDED Clonazepam 2019- 2020- No 1{table Q8H TAKE 1 A ccessH 1mg Tablet 0-20 11-12 t} TABLET BY [facility] 00:00: 00:00 ORAL ROUTE 00 :00 3 TIMES EVERY DAY NEEDED FOR ANXIETY Meloxicam 2019-10 2020- No 2{table Q1D TAKE 2 Ac cessH 7.5mg 0-20 11-12 t} TABLET BY [facility] 00:00: 00:00 ORAL ROUTE 00 :00 EVERY DAY NEEDED Clonazepam 2019- 2020- No 1{table Q8H TAKE 1 A ccessH 1mg Tablet 0-20 11-12 t} TABLET BY [facility] 00:00: 00:00 ORAL ROUTE 00 :00 3 TIMES EVERY DAY NEEDED FOR ANXIETY Meloxicam 2019- 2020- No 2{table Q1D TAKE 2 Ac cessH 7.5mg 0-20 11-12 t} TABLET BY [facility] 00:00: 00:00 ORAL ROUTE 00 :00 EVERY DAY NEEDED Clonazepam 2019- 2020- No 1{table Q8H TAKE 1 A ccessH 1mg Tablet 0-20 11-12 t} TABLET BY [facility] 00:00: 00:00 ORAL ROUTE 00 :00 3 TIMES EVERY DAY NEEDED FOR ANXIETY Meloxicam 2019- 2020- No 2{table Q1D TAKE 2 Ac cessH 7.5mg 0-20 11-12 t} TABLET BY [facility] 00:00: 00:00 ORAL ROUTE 00 :00 EVERY DAY NEEDED Clonazepam 2019- 2020- No 1{table Q8H TAKE 1 A ccessH 1mg Tablet 0-20 11-12 t} TABLET BY [facility] 00:00: 00:00 ORAL ROUTE 00 :00 3 TIMES EVERY DAY NEEDED FOR ANXIETY Meloxicam 2019-10 2020- No 2{table Q1D TAKE 2 Ac cessH 7.5mg 0-20 11-12 t} TABLET BY [facility] 00:00: 00:00 ORAL ROUTE 00 :00 EVERY DAY NEEDED Clonazepam 2019-10 2020- No 1{table Q8H TAKE 1 A ccessH 1mg Tablet 0-20 11-12 t} TABLET BY [facility] 00:00: 00:00 ORAL ROUTE 00 :00 3 TIMES EVERY DAY NEEDED FOR ANXIETY Meloxicam 2019-10- No 2{table Q1D TAKE 2 Ac cess[facility] 7.5mg 0-20 11-12 t} [facility]T [facility] Tablet 00:00: 00:00 ORAL ROUTE 00 :00 EVERY DAY NEEDED Clonazepam 2019-10- No 1{table Q8H TAKE 1 A ccessH 1mg Tablet 0-20 11-12 t} TABLET BY [facility] 00:00: 00:00 ORAL ROUTE 00 :00 3 TIMES EVERY DAY NEEDED FOR ANXIETY [facility] 2019-10 No 1{table Q1D take 1 Acc [facility] mg tablet 0-08 t} tablet by [facility] 00:[facility]: oral route 00 every day at bedtime [facility] 2019-10 No 1{table Q1D take 1 [facility] mg tablet 0-08 t} [facility] 00:[facility]: oral route 00 every day at bedtime [facility] 2019-10 No 1{table Q1D take 1 [facility] mg tablet 0-08 t} [facility]: oral route 00 every day at bedtime [facility] 2019-10 2020- No 1{table Q1D take 1 [facility] mg tablet 0-08 11-03 t[facility] :00 every day at bedtime [facility] 2019-10 2020- No 1{table Q1D take 1 Ac [facility] mg tablet 0-08 11-03 t} tablet by [facility] 00:00: 00:00 oral route 00 :00 every day at bedtime [facility] 2019-10 2020- No 1{table Q1D take 1 Ac cess[facility] mg tablet 0-08 11-03 t} tablet by [facility] 00:00: 00:00 oral route 00 :00 every day at bedtime [facility] 2019-10- No 1{table Q1D take 1 Ac [facility] mg tablet 0-08 11-03 t} tablet by [facility] 00:00: 00:00 oral route 00 :00 every day at bedtime [facility] 2019-10- No 1{table Q1D take 1 Ac [facility] mg tablet 0-08 11-03 t} tablet by [facility] 00:00: 00:00 oral route 00 :00 every day at bedtime [facility] 2019-10- No 1{table Q1D take 1 Ac cess[facility] mg tablet 0-08 11-03 t} tablet by [facility] 00:00: 00:00 oral route 00 :00 every day at bedtime [facility] 2019-10- No 1{table Q1D take 1 [facility] mg tablet 0-08 11-03 t} tablet by ealt h 00:00: 00:00 oral route 00 :00 every day at bedtime [facility] 2019-10- No 1{table Q1D take 1 [facility] mg tablet 0-08 11-03 t} tablet by ealt h 00:00: 00:00 oral route 00 :00 every day at bedtime [facility] 2019-10- No 1{table Q1D take 1 [facility] mg tablet 0-08 11-03 t} tablet by ealt h 00:00: 00:00 oral route 00 :00 every day at bedtime [facility] 2019-10- No 1{table Q1D take 1 [facility] mg tablet 0-08 11-03 t} tablet by ealt h 00:00: 00:00 oral route 00 :00 every day at bedtime [facility] 2019-10- No 1{table Q1D take 1 [facility] mg tablet 0-08 11-03 t} tablet by ealt h 00:00: 00:00 oral route 00 :00 every day at bedtime [facility] 2019-10- No 1{table Q1D take 1 [facility] mg tablet 0-08 11-03 t} tablet by ealt h 00:00: 00:00 oral route 00 :00 every day at bedtime [facility] 2019-10- No 1{table Q1D take 1 [facility] mg tablet 0-08 11-03 t} tablet by ealt h 00:00: 00:00 oral route 00 :00 every day at bedtime [facility] 2019-10- No 1{table Q1D take 1 [facility] mg tablet 0-08 11-03 t} tablet by ealt h 00:00: 00:00 oral route 00 :00 every day at bedtime [facility] 2019-10- No 1{table Q1D take 1 [facility] mg tablet 0-08 11-03 t} tablet by ealt h 00:00: 00:00 oral route 00 :00 every day at bedtime [facility] 2019-10- No 1{table Q1D take 1 [facility] mg tablet 0-08 11-03 t} tablet by ealt h 00:00: 00:00 oral route 00 :00 every day at bedtime [facility] 2019-10- No 1{table Q1D take 1 [facility] mg tablet 0-08 11-03 t} tablet by ealt h 00:00: 00:00 oral route 00 :00 every day at bedtime [facility] 2019-10- No 1{table Q1D take 1 [facility] mg tablet 0-08 11-03 t} tablet by [facility]alt [facility] 00:00: 00[facility]00 [facility]table Q[facility]D take 1 [facility] mg tablet 0-08 11-03 t} tablet by ealt h 00:00: 00:00 oral route 00 :00 every day at bedtime [facility] 2019-10- No 1{table Q1D take 1 [facility] mg tablet 0-08 11-03 t} tablet by ealt [facility] 00:00: 00:00 oral route 00 :00 every day at bedtime [facility] 2019-10- No 1{table Q1D take 1 [facility] mg tablet 0-08 11-03 t} tablet by ealt [facility] 00:00: 00:00 oral route 00 :00 every day at bedtime [facility] 2019-10- No 1{table Q1D take 1 [facility] mg tablet 0-08 11-03 t} tablet by ealt h 00:00: 00:00 oral route 00 :00 every day at bedtime temazepam 2020-1 No 1{capsu Q1D take 1 [facility] 7.5 mg 0-06 le} capsule by [facility] capsule 00:00: oral route 00 every day at bedtime as needed temazepam 2020-1 No 1{capsu Q1D take 1 [facility] 7.5 mg 0-06 le} capsule by ealth capsule 00:00: oral route 00 every day at bedtime as needed temazepam 2019- 2020- No 1{capsu Q1D take 1 [facility] 7.5 mg 0-06 10-08 le} capsule by [facility]alth capsule 00:00: 00:00 oral route 00 :00 every day at bedtime as needed temazepam 2019- 2020- No 1{capsu Q1D take 1 [facility] 7.5 mg 0-06 10-08 le} capsule by ealth capsule 00:00: 00:00 oral route 00 :00 every day at bedtime as needed temazepam 2019- 2020- No 1{capsu Q1D take 1 [facility] 7.5 mg 0-06 10-08 le} capsule by ealth capsule 00:00: 00:00 oral route 00 :00 every day at bedtime as needed temazepam 2020- 2020- No 1{capsu Q1D take 1 [facility] 7.5 mg 0-06 10-08 le} capsule by [facility]alth capsule 00:00: 00:00 oral route 00 :00 every day at bedtime as needed temazepam 2020-1 2020- No 1{capsu Q1D take 1 [facility] 7.5 mg 0-06 10-08 le} capsule by [facility]alth capsule 00:00: 00:00 oral route 00 :00 every day at bedtime as needed temazepam 2020-1 2020- No 1{capsu Q1D take 1 [facility] 7.5 mg 0-06 10-08 le} capsule by [facility]alth capsule 00:00: 00:00 oral route 00 :00 every day at bedtime as needed temazepam 2020-1 2020- No 1{capsu Q1D take 1 [facility] 7.5 mg 0-06 10-08 le} capsule by [facility] capsule 00:00: 00:00 oral route 00 :00 every day at bedtime as needed temazepam 2020- 2020- No 1{capsu Q1D take 1 [facility] 7.5 mg 0-06 10-08 le} capsule by [facility] capsule 00:00: 00:00 oral route 00 :00 every day at bedtime as needed temazepam 2019- 2020- No 1{capsu Q1D take 1 [facility] 7.5 mg 0-06 10-08 le} capsule by ealth capsule 00:00: 00:00 oral route 00 :00 every day at bedtime as needed temazepam 2019- 2020- No 1{capsu Q1D take 1 [facility] 7.5 mg 0-06 10-08 le} capsule by [facility]alth capsule 00:00: 00:00 oral route 00 :00 every day at bedtime as needed temazepam 2019- 2020- No 1{capsu Q1D take 1 [facility] 7.5 mg 0-06 10-08 le} capsule by [facility] capsule 00:00: 00:00 oral route 00 :00 every day at bedtime as needed temazepam 2019- 2020- No 1{capsu Q1D take 1 [facility] 7.5 mg 0-06 10-08 le} capsule by [facility] capsule 00:00: 00:00 oral route 00 :00 every day at bedtime as needed temazepam 2019- 2020- No 1{capsu Q1D take 1 [facility] 7.5 mg 0-06 10-08 le} capsule by [facility] capsule 00:00: 00:00 oral route 00 :00 every day at bedtime as needed temazepam 2019- 2020- No 1{capsu Q1D take 1 [facility] 7.5 mg 0-06 10-08 le} capsule by [facility] capsule 00:00: 00:00 oral route 00 :00 every day at bedtime as needed temazepam 2019- 2020- No 1{capsu Q1D take 1 [facility] 7.5 mg 0-06 10-08 le} capsule by [facility] capsule 00:00: 00:00 oral route 00 :00 every day at bedtime as needed temazepam 2019- 2020- No 1{capsu Q1D take 1 [facility] 7.5 mg 0-06 10-08 le} capsule by [facility] capsule 00:00: 00:00 oral route 00 :00 every day at bedtime as needed temazepam 2019- 2020- No 1{capsu Q1D take 1 [facility] 7.5 mg 0-06 10-08 le} capsule by [facility] capsule 00:00: 00:00 oral route 00 :00 every day at bedtime as needed temazepam 2019- 2020- No 1{capsu Q1D take 1 [facility] 7.5 mg 0-06 10-08 le} capsule by [facility] capsule 00:00: 00:00 oral route 00 :00 every day at bedtime as needed temazepam 2019- 2020- No 1{capsu Q1D take 1 [facility] 7.5 mg 0-06 10-08 le} capsule by [facility] capsule 00:00: 00:00 oral route 00 :00 every day at bedtime as needed temazepam 2019- 2020- No 1{capsu Q1D take 1 [facility] 7.5 mg 0-06 10-08 le} capsule by [facility] capsule 00:00: 00:00 oral route 00 :00 every day at bedtime as needed temazepam 2019- 2020- No 1{capsu Q1D take 1 [facility] 7.5 mg 0-06 10-08 le} capsule by [facility] capsule 00:00: 00:00 oral route 00 :00 every day at bedtime as needed temazepam 2019- 2020- No 1{capsu Q1D take 1 [facility] 7.5 mg 0-06 10-08 le} capsule by [facility] capsule 00:00: 00:00 oral route 00 :00 every day at bedtime as needed temazepam 2019- 2020- No 1{capsu Q1D take 1 [facility] 7.5 mg 0-06 10-08 le} capsule by [facility] capsule 00:00: 00:00 oral route 00 :00 every day at bedtime as needed temazepam 2019- 2020- No 1{capsu Q1D take 1 [facility] 7.5 mg 0-06 10-08 le} capsule by [facility] capsule 00:00: 00:00 oral route 00 :00 every day at bedtime as needed temazepam 2019- 2020- No 1{capsu Q1D take 1 [facility] 7.5 mg 0-06 10-08 le} capsule by [facility] capsule 00:00: 00:00 oral route 00 :00 every day at bedtime as needed temazepam 2020- 2020- No 1{capsu Q1D take 1 [facility] 30 mg 0-06 10-06 le} capsule by [facility] capsule 00:00: 00:00 oral route 00 :00 every day at bedtime as needed temazepam 2020- 2020- No 1{capsu Q1D take 1 [facility] 30 mg 0-06 10-06 le} capsule by [facility] capsule 00:00: 00:00 oral route 00 :00 every day at bedtime as needed temazepam 2019- 2020- No 1{capsu Q1D take 1 [facility] 30 mg 0-06 10-06 le} capsule by e[facility] capsule 00:00: 00:00 oral route 00 :00 every day at bedtime as needed temazepam 2019- 2020- No 1{capsu Q1D take 1 [facility] 30 mg 0-06 10-06 le} capsule by e[facility] capsule 00:00: 00:00 oral route 00 :00 every day at bedtime as needed temazepam 2019- 2020- No 1{capsu Q1D take 1 [facility] 30 mg 0-06 10-06 le} capsule by e[facility] capsule 00:00: 00:00 oral route 00 :00 every day at bedtime as needed temazepam 2020-1 2020- No 1{capsu Q1D take 1 [facility] 30 mg 0-06 10-06 le} capsule by e[facility] capsule 00:00: 00:00 oral route 00 :00 every day at bedtime as needed temazepam 2020-1 2020- No 1{capsu Q1D take 1 [facility] 30 mg 0-06 10-06 le} capsule by e[facility] capsule 00:00: 00:00 oral route 00 :00 every day at bedtime as needed temazepam 2020-1 2020- No 1{capsu Q1D take 1 [facility] 30 mg 0-06 10-06 le} capsule by e[facility] capsule 00:00: 00:00 oral route 00 :00 every day at bedtime as needed temazepam 2020-1 2020- No 1{capsu Q1D take 1 [facility] 30 mg 0-06 10-06 le} capsule by [facility] capsule 00:00: 00:00 oral route 00 :00 every day at bedtime as needed temazepam 2019-1 2020- No 1{capsu Q1D take 1 [facility] 30 mg 0-06 10-06 le} capsule by [facility] capsule 00:00: 00:00 oral route 00 :00 every day at bedtime as needed temazepam 2019- 2020- No 1{capsu Q1D take 1 [facility] 30 mg 0-06 10-06 le} capsule by [facility] capsule 00:00: 00:00 oral route 00 :00 every day at bedtime as needed temazepam 2019- 2020- No 1{capsu Q1D take 1 [facility] 30 mg 0-06 10-06 le} capsule by [facility] capsule 00:00: 00:00 oral route 00 :00 every day at bedtime as needed temazepam 2019- 2020- No 1{capsu Q1D take 1 [facility] 30 mg 0-06 10-06 le} capsule by [facility] capsule 00:00: 00:00 oral route 00 :00 every day at bedtime as needed temazepam 2019- 2020- No 1{capsu Q1D take 1 [facility] 30 mg 0-06 10-06 le} capsule by e[facility] capsule 00:00: 00:00 oral route 00 :00 every day at bedtime as needed temazepam 2019- 2020- No 1{capsu Q1D take 1 [facility] 30 mg 0-06 10-06 le} capsule by e[facility] capsule 00:00: 00:00 oral route 00 :00 every day at bedtime as needed temazepam 2019- 2020- No 1{capsu Q1D take 1 [facility] 30 mg 0-06 10-06 le} capsule by e[facility] capsule 00:00: 00:00 oral route 00 :00 every day at bedtime as needed temazepam 2019- 2020- No 1{capsu Q1D take 1 [facility] 30 mg 0-06 10-06 le} capsule by [facility] capsule 00:00: 00:00 oral route 00 :00 every day at bedtime as needed temazepam 2019- 2020- No 1{capsu Q1D take 1 [facility] 30 mg 0-06 10-06 le} capsule by [facility] capsule 00:00: 00:00 oral route 00 :00 every day at bedtime as needed temazepam 2019- 2020- No 1{capsu Q1D take 1 [facility] 30 mg 0-06 10-06 le} capsule by [facility] capsule 00:00: 00:00 oral route 00 :00 every day at bedtime as needed temazepam 2019- 2020- No 1{capsu Q1D take 1 [facility] 30 mg 0-06 10-06 le} capsule by [facility] capsule 00:00: 00:00 oral route 00 :00 every day at bedtime as needed temazepam 2019- 2020- No 1{capsu Q1D take 1 [facility] 30 mg 0-06 10-06 le} capsule by [facility] capsule 00:00: 00:00 oral route 00 :00 every day at bedtime as needed temazepam 2019- 2020- No 1{capsu Q1D take 1 [facility] 30 mg 0-06 10-06 le} capsule by [facility] capsule 00:00: 00:00 oral route 00 :00 every day at bedtime as needed temazepam 2019- 2020- No 1{capsu Q1D take 1 [facility] 30 mg 0-06 10-06 le} capsule by [facility] capsule 00:00: 00:00 oral route 00 :00 every day at bedtime as needed temazepam 2019- 2020- No 1{capsu Q1D take 1 [facility] 30 mg 0-06 10-06 le} capsule by [facility] capsule 00:00: 00:00 oral route 00 :00 every day at bedtime as needed temazepam 2019-1 2020- No 1{capsu Q1D take 1 [facility] 30 mg 0-06 10-06 le} capsule by e[facility] capsule 00:00: 00:00 oral route 00 :00 every day at bedtime as needed temazepam 2019- 2020- No 1{capsu Q1D take 1 [facility] 30 mg 0-06 10-06 le} capsule by [facility] capsule 00:00: 00:00 oral route 00 :00 every day at bedtime as needed temazepam 2019- 2020- No 1{capsu Q1D take 1 [facility] 30 mg 0-06 10-06 le} capsule by [facility] capsule 00:00: 00:00 oral route 00 :00 every day at bedtime as needed temazepam 2019- 2020- No 1{capsu Q1D take 1 [facility] 30 mg 0-06 10-06 le} capsule by [facility] capsule 00:00: 00:00 oral route 00 :00 every day at bedtime as needed temazepam 2019- 2020- No 1{capsu Q1D take 1 [facility] 30 mg 0-06 10-06 le} capsule by [facility] capsule 00:00: 00:00 oral route 00 :00 every day at bedtime as needed temazepam 2019- 2020- No 1{capsu Q1D take 1 [facility] 30 mg 0-06 10-06 le} capsule by [facility] capsule 00:00: 00:00 oral route 00 :00 every day at bedtime as needed temazepam 2019- 2020- No 1{capsu Q1D take 1 [facility] 30 mg 0-06 10-06 le} capsule by [facility] capsule 00:00: 00:00 oral route 00 :00 every day at bedtime as needed temazepam 2019- 2020- No 1{capsu Q1D take 1 [facility] 30 mg 0-06 10-06 le} capsule by [facility] capsule 00:00: 00:00 oral route 00 :00 every day at bedtime as needed temazepam 2019- 2020- No 1{capsu Q1D take 1 [facility] 30 mg 0-06 10-06 le} capsule by [facility] capsule 00:00: 00:00 oral route 00 :00 every day at bedtime as needed temazepam 2019- 2020- No 1{capsu Q1D take 1 [facility] 30 mg 0-06 10-06 le} capsule by [facility] capsule 00:00: 00:00 oral route 00 :00 every day at bedtime as needed temazepam 2019- 2020- No 1{capsu Q1D take 1 [facility] 30 mg 0-06 10-06 le} capsule by [facility] capsule 00:00: 00:00 oral route 00 :00 every day at bedtime as needed temazepam 2019- 2020- No 1{capsu Q1D take 1 [facility] 30 mg 0-06 10-06 le} capsule by [facility] capsule 00:00: 00:00 oral route 00 :00 every day at bedtime as needed temazepam 2019- 2020- No 1{capsu Q1D take 1 [facility] 30 mg 0-06 10-06 le} capsule by [facility] capsule 00:00: 00:00 oral route 00 :00 every day at bedtime as needed temazepam 2020- 2020- No 1{capsu Q1D take 1 [facility] 30 mg 0-06 10-06 le} capsule by [facility] capsule 00:00: 00:00 oral route 00 :00 every day at bedtime as needed temazepam 2019- 2020- No 1{capsu Q1D take 1 [facility] 30 mg 0-06 10-06 le} capsule by [facility] capsule 00:00: 00:00 oral route 00 :00 every day at bedtime as needed temazepam 2019- 2020- No 1{capsu Q1D take 1 [facility] 30 mg 0-06 10-06 le} capsule by [facility] capsule 00:00: 00:00 oral route 00 :00 every day at bedtime as needed temazepam 2019- 2020- No 1{capsu Q1D take 1 [facility] 30 mg 0-06 10-06 le} capsule by [facility] capsule 00:00: 00:00 oral route 00 :00 every day at bedtime as needed temazepam 2019- 2020- No 1{capsu Q1D take 1 [facility] 30 mg 0-06 10-06 le} capsule by [facility] capsule 00:00: 00:00 oral route 00 :00 every day at bedtime as needed temazepam 2019- 2020- No 1{capsu Q1D take 1 [facility] 30 mg 0-06 10-06 le} capsule by e[facility] capsule 00:00: 00:00 oral route 00 :00 every day at bedtime as needed temazepam 2019-1 2020- No 1{capsu Q1D take 1 [facility] 30 mg 0-06 10-06 le} capsule by [facility] capsule 00:00: 00:00 oral route 00 :00 every day at bedtime as needed temazepam 2020- 2020- No 1{capsu Q1D take 1 [facility] 30 mg 0-06 10-06 le} capsule by [facility] capsule 00:00: 00:00 oral route 00 :00 every day at bedtime as needed temazepam 2020-1 2020- No 1{capsu Q1D take 1 [facility] 30 mg 0-06 10-06 le} capsule by e[facility] capsule 00:00: 00:00 oral route 00 :00 every day at bedtime as needed temazepam 2019- 2020- No 1{capsu Q1D take 1 [facility] 30 mg 0-06 10-06 le} capsule by [facility] capsule 00:00: 00:00 oral route 00 :00 every day at bedtime as needed temazepam 2019-10 2020- No 1{capsu Q1D take 1 [facility] 30 mg 0-06 10-06 le} capsule by [facility] capsule 00:00: 00:00 oral route 00 :00 every day at bedtime as needed temazepam 2019-10 2020- No 1{capsu Q1D take 1 [facility] 30 mg 0-06 10-06 le} capsule by [facility] capsule 00:00: 00:00 oral route 00 :00 every day at bedtime as needed temazepam 2019-10 2020- No 1{capsu Q1D take 1 [facility] 30 mg 0-06 10-06 le} capsule by [facility] capsule 00:00: 00:00 oral route 00 :00 every day at bedtime as needed temazepam 2019-10 2020- No 1{capsu Q1D take 1 [facility] 30 mg 0-06 10-06 le} capsule by [facility] capsule 00:00: 00:00 oral route 00 :00 every day at bedtime as needed temazepam 2019-10 2020- No 1{capsu Q1D take 1 [facility] 30 mg 0-06 10-06 le} capsule by [facility] capsule 00:00: 00:00 oral route 00 :00 every day at bedtime as needed temazepam 2019- 2020- No 1{capsu Q1D take 1 [facility] 30 mg 0-06 10-06 le} capsule by e[facility] capsule 00:00: 00:00 oral route 00 :00 every day at bedtime as needed temazepam 2019-10 2020- No 1{capsu Q1D take 1 [facility] 30 mg 0-06 10-06 le} capsule by [facility] capsule 00:00: 00:00 oral route 00 :00 every day at bedtime as needed ProAir HFA 2019-10 No 1{puff} Q4H inhale 1 med Access[facility] 90 0-03 puff by refill. [facility] mcg/actuati 00:00: inhalation brand on aerosol 00 route preferred inhaler every 4 per hours as insurance needed ProAir HFA 2019-10 No 1{puff} Q4H inhale 1 med Access[facility] 90 0-03 puff by refill. [facility] mcg/actuati 00:00: inhalation brand on aerosol 00 route preferred inhaler every 4 per hours as insurance needed ProAir HFA 2020- No 1{puff} Q4H inhale 1 med [facility] 90 0-03 puff by refill. [facility] mcg/actuati 00:00: inhalation brand on aerosol 00 route preferred inhaler every 4 per hours as insurance needed ProAir HFA 2019- No 1{puff} Q4H inhale 1 med [facility] 90 0-03 puff by refill. [facility] mcg/actuati 00:00: inhalation brand on aerosol 00 route preferred inhaler every 4 per hours as insurance needed ProAir HFA 2019-10 No 1{puff} Q4H inhale 1 med [facility] 90 0-03 puff by refill. [facility] mcg/actuati 00:00: inhalation brand on aerosol 00 route preferred inhaler every 4 per hours as insurance needed ProAir HFA 2019-10 No 1{puff} Q4H inhale 1 med [facility] 90 0-03 puff by refill. e[facility] mcg/actuati 00:00: inhalation brand on aerosol 00 route preferred inhaler every 4 per hours as insurance needed ProAir HFA 2019-10 No 1{puff} Q4H inhale 1 med [facility] 90 0-03 puff by refill. [facility] mcg/actuati 00:00: inhalation brand on aerosol 00 route preferred inhaler every 4 per hours as insurance needed ProAir HFA 2019-10 No 1{puff} Q4H inhale 1 med [facility] 90 0-03 puff by refill. [facility] mcg/actuati 00:00: inhalation brand on aerosol 00 route preferred inhaler every 4 per hours as insurance needed ProAir HFA 2020- No 1{puff} Q4H inhale 1 med [facility] 90 0-03 puff by refill. [facility] mcg/actuati 00:00: inhalation brand on aerosol 00 route preferred inhaler every 4 per hours as insurance needed ProAir HFA 2020- No 1{puff} Q4H inhale 1 med [facility] 90 0-03 puff by refill. [facility] mcg/actuati 00:00: inhalation brand on aerosol 00 route preferred inhaler every 4 per hours as insurance needed ProAir HFA 2020-1 No 1{puff} Q4H inhale 1 med [facility] 90 0-03 puff by refill. [facility] mcg/actuati 00:00: inhalation brand on aerosol 00 route preferred inhaler every 4 per hours as insurance needed ProAir HFA 2020- No 1{puff} Q4H inhale 1 med [facility] 90 0-03 puff by refill. [facility] mcg/actuati 00:00: inhalation brand on aerosol 00 route preferred inhaler every 4 per hours as insurance needed ProAir HFA 2020- No 1{puff} Q4H inhale 1 med [facility] 90 0-03 puff by refill. e[facility] mcg/actuati 00:00: inhalation brand on aerosol 00 route preferred inhaler every 4 per hours as insurance needed ProAir HFA 2020- No 1{puff} Q4H inhale 1 med [facility] 90 0-03 puff by refill. e[facility] mcg/actuati 00:00: inhalation brand on aerosol 00 route preferred inhaler every 4 per hours as insurance needed ProAir HFA 2020- No 1{puff} Q4H inhale 1 med [facility] 90 0-03 puff by refill. e[facility] mcg/actuati 00:00: inhalation brand on aerosol 00 route preferred inhaler every 4 per hours as insurance needed ProAir HFA 2020-1 No 1{puff} Q4H inhale 1 med [facility] 90 0-03 puff by refill. e[facility] mcg/actuati 00:00: inhalation brand on aerosol 00 route preferred inhaler every 4 per hours as insurance needed ProAir HFA 2020-1 No 1{puff} Q4H inhale 1 med [facility] 90 0-03 puff by refill. e[facility] mcg/actuati 00:00: inhalation brand on aerosol 00 route preferred inhaler every 4 per hours as insurance needed ProAir HFA 2020-1 No 1{puff} Q4H inhale 1 med [facility] 90 0-03 puff by refill. e[facility] mcg/actuati 00:00: inhalation brand on aerosol 00 route preferred inhaler every 4 per hours as insurance needed ProAir HFA 2020-1 No 1{puff} Q4H inhale 1 med [facility] 90 0-03 puff by refill. e[facility] mcg/actuati 00:00: inhalation brand on aerosol 00 route preferred inhaler every 4 per hours as insurance needed ProAir HFA 2019-10 No 1{puff} Q4H inhale 1 med [facility] 90 0-03 puff by refill. e[facility] mcg/actuati 00:00: inhalation brand on aerosol 00 route preferred inhaler every 4 per hours as insurance needed ProAir HFA 2019-10 No 1{puff} Q4H inhale 1 med [facility] 90 0-03 puff by refill. e[facility] mcg/actuati 00:00: inhalation brand on aerosol 00 route preferred inhaler every 4 per hours as insurance needed ProAir HFA 2019-10- No 1{puff} Q4H inhale 1 med [facility] 90 0-03 03-12 puff by refill. e[facility] mcg/actuati 00:00: 00:00 inhalation brand on aerosol 00 :00 route preferred inhaler every 4 per hours as insurance needed ProAir HFA 2019-10- No 1{puff} Q4H inhale 1 med [facility] 90 0-03 03-12 puff by refill. [facility] mcg/actuati 00:00: 00:00 inhalation brand on aerosol 00 :00 route preferred inhaler every 4 per hours as insurance needed ProAir HFA 2019-10- No 1{puff} Q4H inhale 1 med [facility] 90 0-03 03-12 puff by refill. e[facility] mcg/actuati 00:00: 00:00 inhalation brand on aerosol 00 :00 route preferred inhaler every 4 per hours as insurance needed ProAir HFA 2019-10- No 1{puff} Q4H inhale 1 med [facility] 90 0-03 03-12 puff by refill. e[facility] mcg/actuati 00:00: 00:00 inhalation brand on aerosol 00 :00 route preferred inhaler every 4 per hours as insurance needed ProAir HFA 2019-10- No 1{puff} Q4H inhale 1 med [facility] 90 0-03 03-12 puff by refill. e[facility] mcg/actuati 00:00: 00:00 inhalation brand on aerosol 00 :00 route preferred inhaler every 4 per hours as insurance needed ProAir HFA 2019-10- No 1{puff} Q4H inhale 1 med [facility] 90 0-03 03-12 puff by refill. [facility] mcg/actuati 00:00: 00:00 inhalation brand on aerosol 00 :00 route preferred inhaler every 4 per hours as insurance needed ProAir HFA 2019-10- No 1{puff} Q4H inhale 1 med [facility] 90 0-03 10-03 puff by refill. e[facility] mcg/actuati 00:00: 00:00 inhalation brand on aerosol 00 :00 route preferred inhaler every 4 per hours as insurance needed ProAir HFA 2019-10- No 1{puff} Q4H inhale 1 med [facility] 90 0-03 10-03 puff by refill. e[facility] mcg/actuati 00:00: 00:00 inhalation brand on aerosol 00 :00 route preferred inhaler every 4 per hours as insurance needed ProAir HFA 2019-10- No 1{puff} Q4H inhale 1 med [facility] 90 0-03 10-03 puff by refill. ealth mcg/actuati 00:00: 00:00 inhalation brand on aerosol 00 :00 route preferred inhaler every 4 per hours as insurance needed ProAir HFA 2019-10- No 1{puff} Q4H inhale 1 med [facility] 90 0-03 10-03 puff by refill. e[facility] mcg/actuati 00:00: 00:00 inhalation brand on aerosol 00 :00 route preferred inhaler every 4 per hours as insurance needed ProAir HFA 2019-10- No 1{puff} Q4H inhale 1 med [facility] 90 0-03 10-03 puff by refill. e[facility] mcg/actuati 00:00: 00:00 inhalation brand on aerosol 00 :00 route preferred inhaler every 4 per hours as insurance needed ProAir HFA 2019-10- No 1{puff} Q4H inhale 1 med [facility] 90 0-03 10-03 puff by refill. e[facility] mcg/actuati 00:00: 00:00 inhalation brand on aerosol 00 :00 route preferred inhaler every 4 per hours as insurance needed ProAir HFA 2019-10- No 1{puff} Q4H inhale 1 med [facility] 90 0-03 10-03 puff by refill. e[facility] mcg/actuati 00:00: 00:00 inhalation brand on aerosol 00 :00 route preferred inhaler every 4 per hours as insurance needed ProAir HFA 2019-10 2020- No 1{puff} Q4H inhale 1 med [facility] 90 0-03 10-03 puff by refill. e[facility] mcg/actuati 00:00: 00:00 inhalation brand on aerosol 00 :00 route preferred inhaler every 4 per hours as insurance needed ProAir HFA 2019-10 2020- No 1{puff} Q4H inhale 1 med [facility] 90 0-03 10-03 puff by refill. ealth mcg/actuati 00:00: 00:00 inhalation brand on aerosol 00 :00 route preferred inhaler every 4 per hours as insurance needed ProAir HFA 2019-10 2020- No 1{puff} Q4H inhale 1 med [facility] 90 0-03 10-03 puff by refill. ealth mcg/actuati 00:00: 00:00 inhalation brand on aerosol 00 :00 route preferred inhaler every 4 per hours as insurance needed ProAir HFA 2019-10 2020- No 1{puff} Q4H inhale 1 med [facility] 90 0-03 10-03 puff by refill. e[facility] mcg/actuati 00:00: 00:00 inhalation brand on aerosol 00 :00 route preferred inhaler every 4 per hours as insurance needed ProAir HFA 2019-10 2020- No 1{puff} Q4H inhale 1 med [facility] 90 0-03 10-03 puff by refill. ealth mcg/actuati 00:00: 00:00 inhalation brand on aerosol 00 :00 route preferred inhaler every 4 per hours as insurance needed ProAir HFA 2019-10 2020- No 1{puff} Q4H inhale 1 med [facility] 90 0-03 10-03 puff by refill. e[facility] mcg/actuati 00:00: 00:00 inhalation brand on aerosol 00 :00 route preferred inhaler every 4 per hours as insurance needed ProAir HFA 2019-10 2020- No 1{puff} Q4H inhale 1 med [facility] 90 0-03 10-03 puff by refill. ealth mcg/actuati 00:00: 00:00 inhalation brand on aerosol 00 :00 route preferred inhaler every 4 per hours as insurance needed ProAir HFA 2019- 2020- No 1{puff} Q4H inhale 1 med Access[facility] 90 0-03 10-03 puff by refill. [facility]cg/actuati 00:00: 00:00 inhalation brand on aerosol 00 :00 route preferred inhaler every 4 per hours as insurance needed ProAir HFA 2019-10 2020- No 1{puff} Q4H inhale 1 med AccessH 90 0-03 10-03 puff by refill. [facility] mcg/actuati 00:00: 00:00 inhalation brand on aerosol 00 :00 route preferred inhaler every 4 per hours as insurance needed ProAir HFA 2019-10 2020- No 1{puff} Q4H inhale 1 med AccessH 90 0-03 10-03 puff by refill. [facility] mcg/actuati 00:00: 00:00 inhalation brand on aerosol 00 :00 route preferred inhaler every 4 per hours as insurance needed ProAir HFA 2019-10 2020- No 1{puff} Q4H inhale 1 med AccessH 90 0-03 10-03 puff by refill. [facility] mcg/actuati 00:00: 00:00 inhalation brand on aerosol 00 :00 route preferred inhaler every 4 per hours as insurance needed ProAir HFA 2019-10 2020- No 1{puff} Q4H inhale 1 med AccessH 90 0-03 10-03 puff by refill. [facility] mcg/actuati 00:00: 00:00 inhalation brand on aerosol 00 :00 route preferred inhaler every 4 per hours as insurance needed ProAir HFA 2019-10 2020- No 1{puff} Q4H inhale 1 med AccessH 90 0-03 10-03 puff by refill. [facility] mcg/actuati 00:00: 00:00 inhalation brand on aerosol 00 :00 route preferred inhaler every 4 per hours as insurance needed ProAir HFA 2019- 2020- No 1{puff} Q4H inhale 1 med AccessH 90 0-03 10-03 puff by refill. [facility] mcg/actuati 00:00: 00:00 inhalation brand on aerosol 00 :00 route preferred inhaler every 4 per hours as insurance needed ProAir HFA 2019- 2020- No 1{puff} Q4H inhale 1 med Access[facility] 90 0-03 10-03 puff by refill. [facility] mcg/actuati 00:00: 00:00 inhalation brand on aerosol 00 :00 route preferred inhaler every 4 per hours as insurance needed ProAir HFA 2019-10 2020- No 1{puff} Q4H inhale 1 med Access[facility] 90 0-03 10-03 puff by refill. [facility] mcg/actuati 00:00: 00:00 inhalation brand on aerosol 00 :00 route preferred inhaler every 4 per hours as insurance needed ProAir HFA 2019-10 2020- No 1{puff} Q4H inhale 1 med Access[facility] 90 0-03 10-03 puff by refill. [facility] mcg/actuati 00:00: 00:00 inhalation brand on aerosol 00 :00 route preferred inhaler every 4 per hours as insurance needed ProAir HFA 2019-10 2020- No 1{puff} Q4H inhale 1 med Access[facility] 90 0-03 10-03 puff by refill. [facility] mcg/actuati 00:00: 00:00 inhalation brand on aerosol 00 :00 route preferred inhaler every 4 per hours as insurance needed ProAir HFA 2019-10 2020- No 1{puff} Q4H inhale 1 med Access[facility] 90 0-03 10-03 puff by refill. [facility] mcg/actuati 00:00: 00:00 inhalation brand on aerosol 00 :00 route preferred inhaler every 4 per hours as insurance needed ProAir HFA 2019-10 2020- No 1{puff} Q4H inhale 1 med Access[facility] 90 0-03 10-03 puff by refill. [facility] mcg/actuati 00:00: 00:00 inhalation brand on aerosol 00 :00 route preferred inhaler every 4 per hours as insurance needed ProAir HFA 2019- 2020- No 1{puff} Q4H inhale 1 med Access[facility] 90 0-03 10-03 puff by refill. [facility] mcg/actuati 00:00: 00:00 inhalation brand on aerosol 00 :00 route preferred inhaler every 4 per hours as insurance needed ProAir HFA 2019- 2020- No 1{puff} Q4H inhale 1 med Access[facility] 90 0-03 10-03 puff by refill. [facility] mcg/actuati 00:00: 00:00 inhalation brand on aerosol 00 :00 route preferred inhaler every 4 per hours as insurance needed ProAir HFA 2019- 2020- No 1{puff} Q4H inhale 1 med Access[facility] 90 0-03 10-03 puff by refill. [facility] mcg/actuati 00:00: 00:00 inhalation brand on aerosol 00 :00 route preferred inhaler every 4 per hours as insurance needed ProAir HFA 2019- 2020- No 1{puff} Q4H inhale 1 med Access[facility] 90 0-03 10-03 puff by refill. [facility] mcg/actuati 00:00: 00:00 inhalation brand on aerosol 00 :00 route preferred inhaler every 4 per hours as insurance needed ProAir HFA 2019-10 2020- No 1{puff} Q4H inhale 1 med Access[facility] 90 0-03 10-03 puff by refill. [facility] mcg/actuati 00:00: 00:00 inhalation brand on aerosol 00 :00 route preferred inhaler every 4 per hours as insurance needed ProAir HFA 2019-10 2020- No 1{puff} Q4H inhale 1 med Access[facility] 90 0-03 10-03 puff by refill. [facility] mcg/actuati 00:00: 00:00 inhalation brand on aerosol 00 :00 route preferred inhaler every 4 per hours as insurance needed ProAir HFA 2019- 2020- No 1{puff} Q4H inhale 1 med Access[facility] 90 0-03 10-03 puff by refill. [facility] mcg/actuati 00:00: 00:00 inhalation brand on aerosol 00 :00 route preferred inhaler every 4 per hours as insurance needed ProAir HFA 2019- 2020- No 1{puff} Q4H inhale 1 med Access[facility] 90 0-03 10-03 puff by refill. [facility] mcg/actuati 00:00: 00:00 inhalation brand on aerosol 00 :00 route preferred inhaler every 4 per hours as insurance needed ProAir HFA 2019-10- No 1{puff} Q4H inhale 1 med Access[facility] 90 0-03 10-03 puff by refill. [facility] mcg/actuati 00:00: 00:00 inhalation brand on aerosol 00 :00 route preferred inhaler every 4 per hours as insurance needed ProAir HFA 2019-10 2020- No 1{puff} Q4H inhale 1 med Access[facility] 90 0-03 10-03 puff by refill. [facility] mcg/actuati 00:00: 00:00 inhalation brand on aerosol 00 :00 route preferred inhaler every 4 per hours as insurance needed ProAir HFA 2019-10 2020- No 1{puff} Q4H inhale 1 med Access[facility] 90 0-03 10-03 puff by refill. [facility] mcg/actuati 00:00: 00:00 inhalation brand on aerosol 00 :00 route preferred inhaler every 4 per hours as insurance needed ProAir HFA 2019-10 2020- No 1{puff} Q4H inhale 1 med Access[facility] 90 0-03 10-03 puff by refill. [facility]cg/actuati 00:00: 00:00 inhalation brand on aerosol 00 :00 route preferred inhaler every 4 per hours as insurance needed ProAir HFA 2019-10 2020- No 1{puff} Q4H inhale 1 med Access[facility] 90 0-03 10-03 puff by refill. [facility]/actuati 00:00: 00:00 inhalation brand on aerosol 00 :00 route preferred inhaler every 4 per hours as insurance needed ProAir HFA 2019-10 2020- No 1{puff} Q4H inhale 1 med Access[facility] 90 0-03 10-03 puff by refill. [facility]cg/actuati 00:00: 00:00 inhalation brand on aerosol 00 :00 route preferred inhaler every 4 per hours as insurance needed ProAir HFA 2019-10 2020- No 1{puff} Q4H inhale 1 med Access[facility] 90 0-03 10-03 puff by refill. [facility]/actuati 00:00: 00:00 inhalation brand on aerosol 00 :00 route preferred inhaler every 4 per hours as insurance needed ProAir HFA 2019-10 2020- No 1{puff} Q4H inhale 1 med Access[facility] 90 0-03 10-03 puff by refill. [facility]cg/actuati 00:00: 00:00 inhalation brand on aerosol 00 :00 route preferred inhaler every 4 per hours as insurance needed ProAir HFA 2019- 2020- No 1{puff} Q4H inhale 1 med Access[facility] 90 0-03 10-03 puff by refill. [facility]/actuati 00:00: 00:00 inhalation brand on aerosol 00 :00 route preferred inhaler every 4 per hours as insurance needed ProAir HFA 2019-10 2020- No 1{puff} Q4H inhale 1 med Access[facility] 90 0-03 10-03 puff by refill. [facility]/actuati 00:00: 00:00 inhalation brand on aerosol 00 :00 route preferred inhaler every 4 per hours as insurance needed ProAir HFA 2019-10 2020- No 1{puff} Q4H inhale 1 med Access[facility] 90 0-03 10-03 puff by refill. [facility]cg/actuati 00:00: 00:00 inhalation brand on aerosol 00 :00 route preferred inhaler every 4 per hours as insurance needed ProAir HFA 2019-10 2020- No 1{puff} Q4H inhale 1 med [facility] 90 0-03 10-03 puff by refill. [facility]cg/actuati 00:00: 00:00 inhalation brand on aerosol 00 :00 route preferred inhaler every 4 per hours as insurance needed ProAir HFA 2019-10 2020- No 1{puff} Q4H inhale 1 med Access[facility] 90 0-03 10-03 puff by refill. [facility] m[facility]/actuati 00:00: 00:00 inhalation brand on aerosol 00 :00 route preferred inhaler every 4 per hours as insurance needed ProAir HFA 2019-10 2020- No 1{puff} Q4H inhale 1 med [facility] 90 0-03 10-03 puff by refill. [facility]/actuati 00:00: 00:00 inhalation brand on aerosol 00 :00 route preferred inhaler every 4 per hours as insurance needed ProAir HFA 2019-10 2020- No 1{puff} Q4H inhale 1 med [facility] 90 0-03 10-03 puff by refill. [facility] mcg/actuati 00:00: 00:00 inhalation brand on aerosol 00 :00 route preferred inhaler every 4 per hours as insurance needed ProAir HFA 2019-10 2020- No 1{puff} Q4H inhale 1 med [facility] 90 0-03 10-03 puff by refill. [facility] mcg/actuati 00:00: 00:00 inhalation brand on aerosol 00 :00 route preferred inhaler every 4 per hours as insurance needed ProAir HFA 2019-10- No 1{puff} Q4H inhale 1 med Access[facility] 90 0-03 10-03 puff by refill. [facility] mcg/actuati 00:00: 00:00 inhalation brand on aerosol 00 :00 route preferred inhaler every 4 per hours as insurance needed ProAir HFA 2019-10- No 1{puff} Q4H inhale 1 med Access[facility] 90 0-03 10-03 puff by refill. [facility] m[facility]/actuati 00:00: 00:00 inhalation brand on aerosol 00 :00 route preferred inhaler every 4 per hours as insurance needed ProAir HFA 2019-10- No 1{puff} Q4H inhale 1 med Access[facility] 90 0-03 10-03 puff by refill. [facility]/actuati 00:00: 00:00 inhalation brand on aerosol 00 :00 route preferred inhaler every 4 per hours as insurance needed tramadol 2020-0 No 1{table 6xD take 1 [facility] 100 mg 9-22 t} tablet by [facility] tablet 00:00: oral route 00 every 4 - 6 hours as needed not to exceed 4 tablets per 24hrs as needed tizanidine 2020-0 No TAKE 1 Acces [facility] 4 mg tablet 9-22 TABLET BY [facility] 00:00: MOUTH 00 EVERY 6 TO 8 HOURS NEEDED. NOT TO EXCEED 3 DOSES IN 24 HOURS tramadol 2020-0 No 1{table 6xD take 1 Acce ss[facility] 100 mg 9-22 t} tablet by [facility] tablet 00:00: oral route 00 every 4 - 6 hours as needed not to exceed 4 tablets per 24hrs as needed tizanidine 2020-0 No TAKE 1 Acces [facility] 4 mg tablet 9-22 TABLET BY [facility] 00:00: MOUTH 00 EVERY 6 TO 8 HOURS NEEDED. NOT TO EXCEED 3 DOSES IN 24 HOURS tramadol 2020-0 No 1{table 6xD take 1 Acce ss[facility] 100 mg 9-22 t} tablet by [facility] tablet 00:00: oral route 00 every 4 - 6 hours as needed not to exceed 4 tablets per 24hrs as needed tizanidine 20200 No TAKE 1 [facility]es [facility] 4 mg tablet 9-22 TABLET BY [facility] 00:00: MOUTH 00 EVERY 6 TO 8 HOURS NEEDED. NOT TO EXCEED 3 DOSES IN 24 HOURS tramadol 2019-0 No 1{table 6xD take 1 Acce ss[facility] 100 mg 9-22 t} tablet by [facility] tablet 00:00: oral route 00 every 4 - 6 hours as needed not to exceed 4 tablets per 24hrs as needed tizanidine 0 No TAKE 1 Acces s[facility] 4 mg tablet 9-22 TABLET BY [facility] 00:00: MOUTH 00 EVERY 6 TO 8 HOURS NEEDED. NOT TO EXCEED 3 DOSES IN 24 HOURS tramadol 0 No 1{table 6xD take 1 Acce ss[facility] 100 mg 9-22 t} tablet by [facility] tablet 00:00: oral route 00 every 4 - 6 hours as needed not to exceed 4 tablets per 24hrs as needed tizanidine 0 No TAKE 1 Acces [facility] 4 mg tablet 9-22 TABLET BY [facility] 00:00: MOUTH 00 EVERY 6 TO 8 HOURS NEEDED. NOT TO EXCEED 3 DOSES IN 24 HOURS tramadol 2019-0 No 1{table 6xD take 1 Acce ss[facility] 100 mg 9-22 t} tablet by [facility] tablet 00:00: oral route 00 every 4 - 6 hours as needed not to exceed 4 tablets per 24hrs as needed tramadol 2020-0 No 1{table 6xD take 1 Acce ss[facility] 100 mg 9-22 t} tablet by [facility] tablet 00:00: oral route 00 every 4 - 6 hours as needed not to exceed 4 tablets per 24hrs as needed tramadol 2020-0 No 1{table 6xD take 1 Acce ss[facility] 100 mg 9-22 t} tablet by [facility] tablet 00:00: oral route 00 every 4 - 6 hours as needed not to exceed 4 tablets per 24hrs as needed tramadol 2020-0 No 1{table 6xD take 1 Acce ss[facility] 100 mg 9-22 t} tablet by [facility] tablet 00:00: oral route 00 every 4 - 6 hours as needed not to exceed 4 tablets per 24hrs as needed tramadol 2020-0 No 1{table 6xD take 1 Acce ss[facility] 100 mg 9-22 t} tablet by [facility] tablet 00:00: oral route 00 every 4 - 6 hours as needed not to exceed 4 tablets per 24hrs as needed tramadol 2020-0 No 1{table 6xD take 1 Acce ss[facility] 100 mg 9-22 t} tablet by [facility] tablet 00:00: oral route 00 every 4 - 6 hours as needed not to exceed 4 tablets per 24hrs as needed tramadol 2020-0 No 1{table 6xD take 1 Acce ss[facility] 100 mg 9-22 t} tablet by [facility] tablet 00:00: oral route 00 every 4 - 6 hours as needed not to exceed 4 tablets per 24hrs as needed tramadol 2020-0 No 1{table 6xD take 1 Acce ss[facility] 100 mg 9-22 t} tablet by [facility] tablet 00:00: oral route 00 every 4 - 6 hours as needed not to exceed 4 tablets per 24hrs as needed tramadol 2020-0 No 1{table 6xD take 1 Acce ss[facility] 100 mg 9-22 t} tablet by [facility] tablet 00:00: oral route 00 every 4 - 6 hours as needed not to exceed 4 tablets per 24hrs as needed tizanidine 2020-0 No TAKE 1 Acces s[facility] 4 mg tablet 9-22 TABLET BY [facility] 00:00: MOUTH 00 EVERY 6 TO 8 HOURS NEEDED. NOT TO EXCEED 3 DOSES IN 24 HOURS tramadol 2020-0 No 1{table 6xD take 1 Acce ss[facility] 100 mg 9-22 t} tablet by [facility] tablet 00:00: oral route 00 every 4 - 6 hours as needed not to exceed 4 tablets per 24hrs as needed tizanidine 2020-0 No TAKE 1 Acces [facility] 4 mg tablet 9-22 TABLET BY [facility] 00:00: MOUTH 00 EVERY 6 TO 8 HOURS NEEDED. NOT TO EXCEED 3 DOSES IN 24 HOURS tramadol 2020-0 No 1{table 6xD take 1 Acce ss[facility] 100 mg 9-22 t} tablet by [facility] tablet 00:00: oral route 00 every 4 - 6 hours as needed not to exceed 4 tablets per 24hrs as needed tizanidine No TAKE 1 Acces [facility] 4 mg tablet - TABLET BY [facility] 00:00: MOUTH 00 EVERY 6 TO 8 HOURS NEEDED. NOT TO EXCEED 3 DOSES IN 24 HOURS tramadol 2020- No 1{table 6xD take 1 Acc ess[facility] 100 mg 07-07 02-02 t} tablet by [facility] tablet 00:00: 00:00 oral route 00 :00 every 4 - 6 hours as needed not to exceed 4 tablets per 24hrs as needed tramadol 2020- No 1{table 6xD take 1 Acc essH 100 mg 07-07 02-02 t} tablet by [facility] tablet 00:00: 00:00 oral route 00 :00 every 4 - 6 hours as needed not to exceed 4 tablets per 24hrs as needed tramadol 2020- No 1{table 6xD take 1 Acc ess[facility] 100 mg 07-07 02-02 t} tablet by [facility] tablet 00:00: 00:00 oral route 00 :00 every 4 - 6 hours as needed not to exceed 4 tablets per 24hrs as needed tramadol 2020- No 1{table 6xD take 1 Acc ess[facility] 100 mg 07-07 02-02 t} tablet by [facility] tablet 00:00: 00:00 oral route 00 :00 every 4 - 6 hours as needed not to exceed 4 tablets per 24hrs as needed tramadol 2020- No 1{table 6xD take 1 Acc ess[facility] 100 mg 07-07 02-02 t} tablet by [facility] tablet 00:00: 00:00 oral route 00 :00 every 4 - 6 hours as needed not to exceed 4 tablets per 24hrs as needed tramadol 2020- No 1{table 6xD take 1 Acc ess[facility] 100 mg 07-07 02-02 t} tablet by [facility] tablet 00:00: 00:00 oral route 00 :00 every 4 - 6 hours as needed not to exceed 4 tablets per 24hrs as needed tramadol 2020- No 1{table 6xD take 1 Acc ess[facility] 100 mg 07-07 02-02 t} tablet by [facility] tablet 00:00: 00:00 oral route 00 :00 every 4 - 6 hours as needed not to exceed 4 tablets per 24hrs as needed tramadol 2020- No 1{table 6xD take 1 Acc ess[facility] 100 mg 07-07-02 t} tablet by [facility] tablet 00:00: 00:00 oral route 00 :00 every 4 - 6 hours as needed not to exceed 4 tablets per 24hrs as needed tramadol 2020- No 1{table 6xD take 1 Acc ess[facility] 100 mg 07-07-02 t} tablet by [facility] tablet 00:00: 00:00 oral route 00 :00 every 4 - 6 hours as needed not to exceed 4 tablets per 24hrs as needed tramadol 2020- No 1{table 6xD take 1 Acc ess[facility] 100 mg 07-07- t} tablet by [facility] tablet 00:00: 00:00 oral route 00 :00 every 4 - 6 hours as needed not to exceed 4 tablets per 24hrs as needed tramadol 2020- No 1{table 6xD take 1 Acc ess[facility] 100 mg 07-07 t} tablet by [facility] tablet 00:00: 00:00 oral route 00 :00 every 4 - 6 hours as needed not to exceed 4 tablets per 24hrs as needed tramadol 2020- No 1{table 6xD take 1 Acc ess[facility] 100 mg 07-07 t} tablet by [facility] tablet 00:00: 00:00 oral route 00 :00 every 4 - 6 hours as needed not to exceed 4 tablets per 24hrs as needed tramadol 2020- No 1{table 6xD take 1 Acc ess[facility] 100 mg 07-07 t} tablet by [facility] tablet 00:00: 00:00 oral route 00 :00 every 4 - 6 hours as needed not to exceed 4 tablets per 24hrs as needed tizanidine 2019- No TAKE 1 [facility] 4 mg tablet 07-07-12 TABLET BY [facility] 00:00: 00:00 MOUTH 00 :00 EVERY 6 TO 8 HOURS NEEDED. NOT TO EXCEED 3 DOSES IN 24 HOURS tizanidine 2019- No TAKE 1 [facility] 4 mg tablet 07-07-12 TABLET BY [facility] 00:00: 00:00 MOUTH 00 :00 EVERY 6 TO 8 HOURS NEEDED. NOT TO EXCEED 3 DOSES IN 24 HOURS tizanidine No TAKE 1 [facility] 4 mg tablet 9-22 11-12 TABLET BY [facility] 00:00: 00:00 MOUTH 00 :00 EVERY 6 TO 8 HOURS NEEDED. NOT TO EXCEED 3 DOSES IN 24 HOURS tizanidine No TAKE 1 [facility] 4 mg tablet 9-22 11-12 TABLET BY [facility] 00:00: 00:00 MOUTH 00 :00 EVERY 6 TO 8 HOURS NEEDED. NOT TO EXCEED 3 DOSES IN 24 HOURS tizanidine No TAKE 1 [facility] 4 mg tablet 9- 11-12 TABLET BY [facility] 00:00: 00:00 MOUTH 00 :00 EVERY 6 TO 8 HOURS NEEDED. NOT TO EXCEED 3 DOSES IN 24 HOURS tizanidine TAKE 1 [facility] 4 mg tablet 9- 11-12 TABLET BY [facility] 00:00: 00:00 MOUTH 00 :00 EVERY 6 TO 8 HOURS NEEDED. NOT TO EXCEED 3 DOSES IN 24 HOURS tizanidine TAKE 1 [facility] 4 mg tablet 9- 11-12 TABLET BY [facility] 00:00: 00:00 MOUTH 00 :00 EVERY 6 TO 8 HOURS NEEDED. NOT TO EXCEED 3 DOSES IN 24 HOURS tizanidine TAKE 1 [facility] 4 mg tablet 9- 11-12 TABLET BY [facility] 00:00: 00:00 MOUTH 00 :00 EVERY 6 TO 8 HOURS NEEDED. NOT TO EXCEED 3 DOSES IN 24 HOURS tizanidine TAKE 1 [facility] 4 mg tablet 9-22 11-12 TABLET BY [facility] 00:00: 00:00 MOUTH 00 :00 EVERY 6 TO 8 HOURS NEEDED. NOT TO EXCEED 3 DOSES IN 24 HOURS tizanidine No TAKE 1 [facility] 4 mg tablet 9-22 11-12 TABLET BY [facility] 00:00: 00:00 MOUTH 00 :00 EVERY 6 TO 8 HOURS NEEDED. NOT TO EXCEED 3 DOSES IN 24 HOURS tizanidine No TAKE 1 [facility] 4 mg tablet 9-22 11-12 TABLET BY [facility] 00:00: 00:00 MOUTH 00 :00 EVERY 6 TO 8 HOURS NEEDED. NOT TO EXCEED 3 DOSES IN 24 HOURS tizanidine No TAKE 1 [facility] 4 mg tablet - 11-12 TABLET BY [facility] 00:00: 00:00 MOUTH 00 :00 EVERY 6 TO 8 HOURS NEEDED. NOT TO EXCEED 3 DOSES IN 24 HOURS tizanidine No TAKE 1 [facility] 4 mg tablet - 11-12 TABLET BY [facility] 00:00: 00:00 MOUTH 00 :00 EVERY 6 TO 8 HOURS NEEDED. NOT TO EXCEED 3 DOSES IN 24 HOURS tizanidine No TAKE 1 [facility] 4 mg tablet 07-07 11-12 TABLET BY [facility] 00:00: 00:00 MOUTH 00 :00 EVERY 6 TO 8 HOURS NEEDED. NOT TO EXCEED 3 DOSES IN 24 HOURS tizanidine TAKE 1 [facility] 4 mg tablet 07-07 11-12 TABLET BY [facility] 00:00: 00:00 MOUTH 00 :00 EVERY 6 TO 8 HOURS NEEDED. NOT TO EXCEED 3 DOSES IN 24 HOURS tizanidine No TAKE 1 [facility] 4 mg tablet 07-07 11-12 TABLET BY [facility] 00:00: 00:00 MOUTH 00 :00 EVERY 6 TO 8 HOURS NEEDED. NOT TO EXCEED 3 DOSES IN 24 HOURS tizanidine No TAKE 1 [facility] 4 mg tablet 07-07 11-12 TABLET BY [facility] 00:00: 00:00 MOUTH 00 :00 EVERY 6 TO 8 HOURS NEEDED. NOT TO EXCEED 3 DOSES IN 24 HOURS tizanidine No TAKE 1 [facility] 4 mg tablet - 11-12 TABLET BY [facility] 00:00: 00:00 MOUTH 00 :00 EVERY 6 TO 8 HOURS NEEDED. NOT TO EXCEED 3 DOSES IN 24 HOURS tizanidine 2019- No TAKE 1 [facility] 4 mg tablet 9-22 11-12 TABLET BY [facility] 00:00: 00:00 MOUTH 00 :00 EVERY 6 TO 8 HOURS NEEDED. NOT TO EXCEED 3 DOSES IN 24 HOURS tizanidine 2019- No TAKE 1 [facility] 4 mg tablet 07-07 TABLET BY [facility] 00:00: 00:00 MOUTH 00 :00 EVERY 6 TO 8 HOURS NEEDED. NOT TO EXCEED 3 DOSES IN 24 HOURS tizanidine 2019-0 2020- No TAKE 1 [facility] 4 mg tablet 07-07 TABLET BY [facility] 00:00: 00:00 MOUTH 00 :00 EVERY 6 TO 8 HOURS NEEDED. NOT TO EXCEED 3 DOSES IN 24 HOURS Advair 2019-0 No 1{puff} Q12H inhale 1 Acce ss[facility] Diskus 100 9-08 puff by [facility] [email or web address] 00:00: inhalation mcg/dose 00 route 2 powder for times inhalation every day in the morning and evening approximat jaya 12 hours apart for asthma Advair 2019-0 No 1{puff} Q12H inhale 1 Acce ssH Diskus 100 9-08 puff by [facility] [email or web address] 00:00: inhalation mcg/dose 00 route 2 powder for times inhalation every day in the morning and evening approximat jaya 12 hours apart for asthma Advair 2020-0 No 1{puff} Q12H inhale 1 Acce ssH Diskus 100 9-08 puff by [facility] [email or web address] 00:00: inhalation mcg/dose 00 route 2 powder for times inhalation every day in the morning and evening approximat jaya 12 hours apart for asthma Advair 2020-0 No 1{puff} Q12H inhale 1 Acce ssH Diskus 100 9-08 puff by [facility] [email or web address] 00:00: inhalation mcg/dose 00 route 2 powder for times inhalation every day in the morning and evening approximat jaya 12 hours apart for asthma Advair 2020-0 No 1{puff} Q12H inhale 1 Acce ssH Diskus 100 9-08 puff by [facility] [email or web address] 00:00: inhalation mcg/dose 00 route 2 powder for times inhalation every day in the morning and evening approximat jaya 12 hours apart for asthma Advair 2020-0 No 1{puff} Q12H inhale 1 Acce ssH Diskus 100 9-08 puff by [facility] [email or web address] 00:00: inhalation mcg/dose 00 route 2 powder for times inhalation every day in the morning and evening approximat jaya 12 hours apart for asthma Advair 2020-0 No 1{puff} Q12H inhale 1 Acce ssH Diskus 100 9-08 puff by [facility] [email or web address] 00:00: inhalation mcg/dose 00 route 2 powder for times inhalation every day in the morning and evening approximat jaya 12 hours apart for asthma Advair 2019-0 No 1{puff} Q12H inhale 1 Acce ssH Diskus 100 9-08 puff by [facility] [email or web address] 00:00: inhalation mcg/dose 00 route 2 powder for times inhalation every day in the morning and evening approximat jaya 12 hours apart for asthma Advair 0 No 1{puff} Q12H inhale 1 Acce ssH Diskus 100 9-08 puff by [facility] [email or web address] 00:00: inhalation mcg/dose 00 route 2 powder for times inhalation every day in the morning and evening approximat jaya 12 hours apart for asthma Advair 0 No 1{puff} Q12H inhale 1 Acce ssH Diskus 100 9-08 puff by [facility] [email or web address] 00:00: inhalation mcg/dose 00 route 2 powder for times inhalation every day in the morning and evening approximat jaya 12 hours apart for asthma Advair 0 No 1{puff} Q12H inhale 1 Acce ssH Diskus 100 9-08 puff by [facility] [email or web address] 00:00: inhalation mcg/dose 00 route 2 powder for times inhalation every day in the morning and evening approximat jaya 12 hours apart for asthma Advair 2019-0 No 1{puff} Q12H inhale 1 Acce ssH Diskus 100 9-08 puff by [facility] [email or web address] 00:00: inhalation mcg/dose 00 route 2 powder for times inhalation every day in the morning and evening approximat jaya 12 hours apart for asthma Advair 2019- 2020- No 1{puff} Q12H inhale 1 Acc essH Diskus 100 9-08 11-12 puff by [facility] [email or web address] 00:00: 00:00 inhalation mcg/dose 00 :00 route 2 powder for times inhalation every day in the morning and evening approximat jaya 12 hours apart for asthma Advair 2019-0 2020- No 1{puff} Q12H inhale 1 Acc essH Diskus 100 9-08 11-12 puff by [facility] [email or web address] 00:00: 00:00 inhalation mcg/dose 00 :00 route 2 powder for times inhalation every day in the morning and evening approximat jaya 12 hours apart for asthma Advair 2020-0 2020- No 1{puff} Q12H inhale 1 Acc essH Diskus 100 9-08 11-12 puff by [facility] [email or web address] 00:00: 00:00 inhalation mcg/dose 00 :00 route 2 powder for times inhalation every day in the morning and evening approximat jaya 12 hours apart for asthma Advair 2020- 2020- No 1{puff} Q12H inhale 1 Acc essH Diskus 100 9-08 11-12 puff by [facility] [email or web address] 00:00: 00:00 inhalation mcg/dose 00 :00 route 2 powder for times inhalation every day in the morning and evening approximat jaya 12 hours apart for asthma Advair 2020- 2020- No 1{puff} Q12H inhale 1 Acc essH Diskus 100 9-08 11-12 puff by [facility] [email or web address] 00:00: 00:00 inhalation mcg/dose 00 :00 route 2 powder for times inhalation every day in the morning and evening approximat jaya 12 hours apart for asthma Advair 2020-0 2020- No 1{puff} Q12H inhale 1 Acc essH Diskus 100 9-08 11-12 puff by [facility] [email or web address] 00:00: 00:00 inhalation mcg/dose 00 :00 route 2 powder for times inhalation every day in the morning and evening approximat jaya 12 hours apart for asthma Advair 2020-0 2020- No 1{puff} Q12H inhale 1 Acc essH Diskus 100 9-08 11-12 puff by [facility] [email or web address] 00:00: 00:00 inhalation mcg/dose 00 :00 route 2 powder for times inhalation every day in the morning and evening approximat jaya 12 hours apart for asthma Advair 2020-0 2020- No 1{puff} Q12H inhale 1 Acc essH Diskus 100 9-08 11-12 puff by [facility] [email or web address] 00:00: 00:00 inhalation mcg/dose 00 :00 route 2 powder for times inhalation every day in the morning and evening approximat jaya 12 hours apart for asthma Advair 2020-0 2020- No 1{puff} Q12H inhale 1 Acc essH Diskus 100 9-08 11-12 puff by [facility] [email or web address] 00:00: 00:00 inhalation mcg/dose 00 :00 route 2 powder for times inhalation every day in the morning and evening approximat jaya 12 hours apart for asthma Advair 2020- 2020- No 1{puff} Q12H inhale 1 Acc essH Diskus 100 9-08 11-12 puff by [facility] [email or web address] 00:00: 00:00 inhalation mcg/dose 00 :00 route 2 powder for times inhalation every day in the morning and evening approximat jaya 12 hours apart for asthma Advair 2020- 2020- No 1{puff} Q12H inhale 1 [facility] Diskus 100 9-08 11-12 puff by [facility] mcg-50 00:00: 00:00 inhalation mcg/dose 00 :00 route 2 powder for times inhalation every day in the morning and evening approximat jaya 12 hours apart for asthma Advair 2020- 2020- No 1{puff} Q12H inhale 1 [facility] Diskus 100 9-08 11-12 puff by [facility] [email or web address] 00:00: 00:00 inhalation mcg/dose 00 :00 route 2 powder for times inhalation every day in the morning and evening approximat jaya 12 hours apart for asthma Advair 2020-0 2020- No 1{puff} Q12H inhale 1 [facility] Diskus 100 9-08 11-12 puff by [facility] [email or web address] 00:00: 00:00 inhalation mcg/dose 00 :00 route 2 powder for times inhalation every day in the morning and evening approximat jaya 12 hours apart for asthma Advair 2020-0 2020- No 1{puff} Q12H inhale 1 [facility] Diskus 100 9-08 11-12 puff by [facility] [email or web address] 00:00: 00:00 inhalation mcg/dose 00 :00 route 2 powder for times inhalation every day in the morning and evening approximat jaya 12 hours apart for asthma Advair 2020-0 2020- No 1{puff} Q12H inhale 1 [facility] Diskus 100 9-08 11-12 puff by [facility] [email or web address] 00:00: 00:00 inhalation mcg/dose 00 :00 route 2 powder for times inhalation every day in the morning and evening approximat jaya 12 hours apart for asthma Advair 2020-0 2020- No 1{puff} Q12H inhale 1 [facility] Diskus 100 9-08 11-12 puff by [facility] [email or web address] 00:00: 00:00 inhalation mcg/dose 00 :00 route 2 powder for times inhalation every day in the morning and evening approximat jaya 12 hours apart for asthma Advair 2019-0 2020- No 1{puff} Q12H inhale 1 [facility] Diskus 100 9-08 11-12 puff by [facility] [email or web address] 00:00: 00:00 inhalation mcg/dose 00 :00 route 2 powder for times inhalation every day in the morning and evening approximat jaya 12 hours apart for asthma Advair 2019-0 2020- No 1{puff} Q12H inhale 1 [facility] Diskus 100 9-08 11-12 puff by [facility] [email or web address] 00:00: 00:00 inhalation mcg/dose 00 :00 route 2 powder for times inhalation every day in the morning and evening approximat jaya 12 hours apart for asthma Advair 2020-0 2020- No 1{puff} Q12H inhale 1 [facility] Diskus 100 9-08 11-12 puff by [facility] [email or web address] 00:00: 00:00 inhalation mcg/dose 00 :00 route 2 powder for times inhalation every day in the morning and evening approximat jaya 12 hours apart for asthma Advair 2020-0 2020- No 1{puff} Q12H inhale 1 [facility] Diskus 100 9-08 11-12 puff by [facility] [email or web address] 00:00: 00:00 inhalation mcg/dose 00 :00 route 2 powder for times inhalation every day in the morning and evening approximat jaya 12 hours apart for asthma Advair 2019-0 2020- No 1{puff} Q12H inhale 1 [facility] Diskus 100 9-08 11-12 puff by [facility] [email or web address] 00:00: 00:00 inhalation mcg/dose 00 :00 route 2 powder for times inhalation every day in the morning and evening approximat jaya 12 hours apart for asthma tramadol 2020-0 No 1{table 6xD take 1 [facility] 100 mg 8-22 t} tablet by [facility] tablet 00:00: oral route 00 every 4 - 6 hours as needed not to exceed 4 tablets per 24hrs as needed tramadol 2020-0 No 1{table 6xD take 1 [facility] 100 mg 8-22 t} tablet by [facility] tablet 00:00: oral route 00 every 4 - 6 hours as needed not to exceed 4 tablets per 24hrs as needed tramadol 2020-0 No 1{table 6xD take 1 [facility] 100 mg 8-22 t} tablet by [facility] tablet 00:00: oral route 00 every 4 - 6 hours as needed not to exceed 4 tablets per 24hrs as needed tramadol 2020-0 No 1{table 6xD take 1 [facility] 100 mg 8-22 t} tablet by [facility] tablet 00:00: oral route 00 every 4 - 6 hours as needed not to exceed 4 tablets per 24hrs as needed tramadol 2020-0 No 1{table 6xD take 1 [facility] 100 mg 8-22 t} tablet by [facility] tablet 00:00: oral route 00 every 4 - 6 hours as needed not to exceed 4 tablets per 24hrs as needed tramadol 2020-0 No 1{table 6xD take 1 [facility] 100 mg 8-22 t} tablet by [facility] tablet 00:00: oral route 00 every 4 - 6 hours as needed not to exceed 4 tablets per 24hrs as needed tramadol 2020-0 No 1{table 6xD take 1 [facility] 100 mg 8-22 t} tablet by [facility] tablet 00:00: oral route 00 every 4 - 6 hours as needed not to exceed 4 tablets per 24hrs as needed tramadol 2020-0 No 1{table 6xD take 1 [facility] 100 mg 8-22 t} tablet by [facility] tablet 00:00: oral route 00 every 4 - 6 hours as needed not to exceed 4 tablets per 24hrs as needed tramadol 2020-0 No 1{table 6xD take 1 [facility] 100 mg 8-22 t} tablet by [facility] tablet 00:00: oral route 00 every 4 - 6 hours as needed not to exceed 4 tablets per 24hrs as needed tramadol 2020-0 2020- No 1{table 6xD take 1 [facility] 100 mg 8-22 09-22 t} tablet by [facility] tablet 00:00: 00:00 oral route 00 :00 every 4 - 6 hours as needed not to exceed 4 tablets per 24hrs as needed tramadol 2019- 2020- No 1{table 6xD take 1 [facility] 100 mg 8-22 09-22 t} tablet by [facility] tablet 00:00: 00:00 oral route 00 :00 every 4 - 6 hours as needed not to exceed 4 tablets per 24hrs as needed tramadol 2019- 2020- No 1{table 6xD take 1 [facility] 100 mg 8-22 09-22 t} tablet by [facility] tablet 00:00: 00:00 oral route 00 :00 every 4 - 6 hours as needed not to exceed 4 tablets per 24hrs as needed tramadol 2019- 2020- No 1{table 6xD take 1 [facility] 100 mg 8-22 09-22 t} tablet by [facility] tablet 00:00: 00:00 oral route 00 :00 every 4 - 6 hours as needed not to exceed 4 tablets per 24hrs as needed tramadol 2019- 2020- No 1{table 6xD take 1 [facility] 100 mg 8-22 09-22 t} tablet by [facility] tablet 00:00: 00:00 oral route 00 :00 every 4 - 6 hours as needed not to exceed 4 tablets per 24hrs as needed tramadol 2019- 2020- No 1{table 6xD take 1 [facility] 100 mg 8-22 09-22 t} tablet by [facility] tablet 00:00: 00:00 oral route 00 :00 every 4 - 6 hours as needed not to exceed 4 tablets per 24hrs as needed tramadol 2019- 2020- No 1{table 6xD take 1 [facility] 100 mg 8-22 09-22 t} tablet by [facility] tablet 00:00: 00:00 oral route 00 :00 every 4 - 6 hours as needed not to exceed 4 tablets per 24hrs as needed tramadol 2019- 2020- No 1{table 6xD take 1 [facility] 100 mg 8-22 09-22 t} tablet by [facility] tablet 00:00: 00:00 oral route 00 :00 every 4 - 6 hours as needed not to exceed 4 tablets per 24hrs as needed tramadol 2019- No 1{table 6xD take 1 [facility] 100 mg 8-22 09-22 t} tablet by [facility] tablet 00:00: 00:00 oral route 00 :00 every 4 - 6 hours as needed not to exceed 4 tablets per 24hrs as needed tramadol 2019- No 1{table 6xD take 1 [facility] 100 mg 8-22 09-22 t} tablet by [facility] tablet 00:00: 00:00 oral route 00 :00 every 4 - 6 hours as needed not to exceed 4 tablets per 24hrs as needed tramadol 2019- No 1{table 6xD take 1 [facility] 100 mg 8-22 09-22 t} tablet by [facility] tablet 00:00: 00:00 oral route 00 :00 every 4 - 6 hours as needed not to exceed 4 tablets per 24hrs as needed tramadol 2020- No 1{table 6xD take 1 [facility] 100 mg 8-22 09-22 t} tablet by [facility] tablet 00:00: 00:00 oral route 00 :00 every 4 - 6 hours as needed not to exceed 4 tablets per 24hrs as needed tramadol 2019- 2020- No 1{table 6xD take 1 [facility] 100 mg 8-22 09-22 t} tablet by [facility] tablet 00:00: 00:00 oral route 00 :00 every 4 - 6 hours as needed not to exceed 4 tablets per 24hrs as needed tramadol 2020- No 1{table 6xD take 1 [facility] 100 mg 8-22 09-22 t} tablet by [facility] tablet 00:00: 00:00 oral route 00 :00 every 4 - 6 hours as needed not to exceed 4 tablets per 24hrs as needed tramadol 2019- 2020- No 1{table 6xD take 1 [facility] 100 mg 8-22 09-22 t} tablet by [facility] tablet 00:00: 00:00 oral route 00 :00 every 4 - 6 hours as needed not to exceed 4 tablets per 24hrs as needed tramadol 2019-2019- No 1{table 6xD take 1 [facility] 100 mg 8-22 09-22 t} tablet by [facility] tablet 00:00: 00:00 oral route 00 :00 every 4 - 6 hours as needed not to exceed 4 tablets per 24hrs as needed tramadol 2020-0 2020- No 1{table 6xD take 1 [facility] 100 mg 8-22 09-22 t} tablet by [facility] tablet 00:00: 00:00 oral route 00 :00 every 4 - 6 hours as needed not to exceed 4 tablets per 24hrs as needed tramadol 2020-0 2020- No 1{table 6xD take 1 [facility] 100 mg 8-22 09-22 t} tablet by [facility] tablet 00:00: 00:00 oral route 00 :00 every 4 - 6 hours as needed not to exceed 4 tablets per 24hrs as needed tramadol 2020-0 2020- No 1{table 6xD take 1 [facility] 100 mg 8-22 09-22 t} tablet by [facility] tablet 00:00: 00:00 oral route 00 :00 every 4 - 6 hours as needed not to exceed 4 tablets per 24hrs as needed tramadol 2020-0 2020- No 1{table 6xD take 1 [facility] 100 mg 8-22 09-22 t} tablet by [facility] tablet 00:00: 00:00 oral route 00 :00 every 4 - 6 hours as needed not to exceed 4 tablets per 24hrs as needed tramadol 2020-0 2020- No 1{table 6xD take 1 [facility] 100 mg 8-22 09-22 t} tablet by [facility] tablet 00:00: 00:00 oral route 00 :00 every 4 - 6 hours as needed not to exceed 4 tablets per 24hrs as needed tramadol 2020-0 2020- No 1{table 6xD take 1 [facility] 100 mg 8-22 09-22 t} tablet by [facility] tablet 00:00: 00:00 oral route 00 :00 every 4 - 6 hours as needed not to exceed 4 tablets per 24hrs as needed tramadol 2020-0 2020- No 1{table 6xD take 1 [facility] 100 mg 8-22 09-22 t} tablet by [facility] tablet 00:00: 00:00 oral route 00 :00 every 4 - 6 hours as needed not to exceed 4 tablets per 24hrs as needed tramadol 2020-0 2020- No 1{table 6xD take 1 [facility] 100 mg 8-22 09-22 t} tablet by [facility] tablet 00:00: 00:00 oral route 00 :00 every 4 - 6 hours as needed not to exceed 4 tablets per 24hrs as needed tramadol 2019-0 2020- No 1{table 6xD take 1 [facility] 100 mg 8-22 09-22 t} tablet by [facility] tablet 00:00: 00:00 oral route 00 :00 every 4 - 6 hours as needed not to exceed 4 tablets per 24hrs as needed tramadol 2019-0 2020- No 1{table 6xD take 1 [facility] 100 mg 8-22 09-22 t} tablet by [facility] tablet 00:00: 00:00 oral route 00 :00 every 4 - 6 hours as needed not to exceed 4 tablets per 24hrs as needed tramadol 2019-0 2020- No 1{table 6xD take 1 [facility] 100 mg 8-22 09-22 t} tablet by [facility] tablet 00:00: 00:00 oral route 00 :00 every 4 - 6 hours as needed not to exceed 4 tablets per 24hrs as needed tramadol 2019-0 2020- No 1{table 6xD take 1 [facility] 100 mg 8-22 09-22 t} tablet by [facility] tablet 00:00: 00:00 oral route 00 :00 every 4 - 6 hours as needed not to exceed 4 tablets per 24hrs as needed tramadol 2019-0 2020- No 1{table 6xD take 1 [facility] 100 mg 8-22 09-22 t} tablet by [facility] tablet 00:00: 00:00 oral route 00 :00 every 4 - 6 hours as needed not to exceed 4 tablets per 24hrs as needed Latuda 60 2020-0 No 1{table Q1D take 1 [facility] mg tablet 8-21 t} tablet by [facility] 00:00: oral route 00 every day with food (at least 350 calories) temazepam 2020-0 No 1{capsu Q1D take 1 [facility] 30 mg 8-21 le} capsule by [facility] capsule 00:00: oral route 00 every day at bedtime as needed meloxicam 2020-0 No 2{table QD take 2 [facility] 7.5 mg 8-21 t} tablet by [facility] tablet 00:00: oral route 00 every day as needed Latuda 60 2020-0 No 1{table Q1D take 1 [facility] mg tablet 8-21 t} tablet by [facility] 00:00: oral route 00 every day with food (at least 350 calories) meloxicam 2020-0 No 2{table QD take 2 [facility] 7.5 mg 8-21 t} tablet by [facility] tablet 00:00: oral route 00 every day as needed Latuda 60 2020-0 No 1{table Q1D take 1 [facility] mg tablet 8-21 t} tablet by [facility] 00:00: oral route 00 every day with food (at least 350 calories) meloxicam 2020-0 No 2{table QD take 2 [facility] 7.5 mg 8-21 t} tablet by [facility] tablet 00:00: oral route 00 every day as needed Latuda 60 2020-0 No 1{table Q1D take 1 [facility] mg tablet 8-21 t} tablet by [facility] 00:00: oral route 00 every day with food (at least 350 calories) meloxicam 2020-0 No 2{table QD take 2 [facility] 7.5 mg 8-21 t} tablet by [facility] tablet 00:00: oral route 00 every day as needed Latuda 60 2020-0 No 1{table Q1D take 1 [facility] mg tablet 8-21 t} tablet by [facility] 00:00: oral route 00 every day with food (at least 350 calories) Latuda 60 2020-0 No 1{table Q1D take 1 [facility] mg tablet 8-21 t} tablet by [facility] 00:00: oral route 00 every day with food (at least 350 calories) Latuda 60 2020-0 No 1{table Q1D take 1 [facility] mg tablet 8-21 t} tablet by [facility] 00:00: oral route 00 every day with food (at least 350 calories) temazepam 2020-0 No 1{capsu Q1D take 1 [facility] 30 mg 8-21 le} capsule by [facility] capsule 00:00: oral route 00 every day at bedtime as needed meloxicam 2020-0 No 2{table QD take 2 [facility] 7.5 mg 8-21 t} tablet by [facility] tablet 00:00: oral route 00 every day as needed Latuda 60 2020-0 No 1{table Q1D take 1 [facility] mg tablet 8-21 t} tablet by [facility] 00:00: oral route 00 every day with food (at least 350 calories) temazepam 2020-0 No 1{capsu Q1D take 1 [facility] 30 mg 8-21 le} capsule by [facility] capsule 00:00: oral route 00 every day at bedtime as needed meloxicam 2020-0 No 2{table QD take 2 [facility] 7.5 mg 8-21 t} tablet by [facility] tablet 00:00: oral route 00 every day as needed Latuda 60 2020-0 No 1{table Q1D take 1 [facility] mg tablet 8-21 t} tablet by [facility] 00:00: oral route 00 every day with food (at least 350 calories) temazepam 2020-0 No 1{capsu Q1D take 1 [facility] 30 mg 8-21 le} capsule by [facility] capsule 00:00: oral route 00 every day at bedtime as needed meloxicam 2020-0 No 2{table QD take 2 [facility] 7.5 mg 8-21 t} tablet by [facility] tablet 00:00: oral route 00 every day as needed Latuda 60 2020-0 No 1{table Q1D take 1 [facility] mg tablet 8-21 t} tablet by [facility] 00:00: oral route 00 every day with food (at least 350 calories) temazepam 2020-0 No 1{capsu Q1D take 1 [facility] 30 mg 8-21 le} capsule by [facility] capsule 00:00: oral route 00 every day at bedtime as needed meloxicam 2020-0 No 2{table QD take 2 [facility] 7.5 mg 8-21 t} tablet by [facility] tablet 00:00: oral route 00 every day as needed Latuda 60 2020-0 No 1{table Q1D take 1 [facility] mg tablet 8-21 t} tablet by [facility] 00:00: oral route 00 every day with food (at least 350 calories) temazepam 2020-0 No 1{capsu Q1D take 1 [facility] 30 mg 8-21 le} capsule by [facility] capsule 00:00: oral route 00 every day at bedtime as needed meloxicam 2020-0 No 2{table QD take 2 [facility] 7.5 mg 8-21 t} tablet by [facility] tablet 00:00: oral route 00 every day as needed Latuda 60 2020-0 No 1{table Q1D take 1 [facility] mg tablet 8-21 t} tablet by [facility] 00:00: oral route 00 every day with food (at least 350 calories) temazepam 2020-0 No 1{capsu Q1D take 1 [facility] 30 mg 8-21 le} capsule by [facility] capsule 00:00: oral route 00 every day at bedtime as needed meloxicam 2020-0 No 2{table QD take 2 [facility] 7.5 mg 8-21 t} tablet by [facility] tablet 00:00: oral route 00 every day as needed Latuda 60 2020-0 No 1{table Q1D take 1 [facility] mg tablet 8-21 t} tablet by e[facility] 00:00: oral route 00 every day with food (at least 350 calories) temazepam 2020-0 No 1{capsu Q1D take 1 [facility] 30 mg 8-21 le} capsule by [facility] capsule 00:00: oral route 00 every day at bedtime as needed meloxicam 2020-0 No 2{table QD take 2 [facility] 7.5 mg 8-21 t} tablet by [facility] tablet 00:00: oral route 00 every day as needed Latuda 60 2020-0 No 1{table Q1D take 1 [facility] mg tablet 8-21 t} tablet by e[facility] 00:00: oral route 00 every day with food (at least 350 calories) temazepam 2020-0 No 1{capsu Q1D take 1 [facility] 30 mg 8-21 le} capsule by [facility] capsule 00:00: oral route 00 every day at bedtime as needed meloxicam 2020-0 No 2{table QD take 2 [facility] 7.5 mg 8-21 t} tablet by e[facility] tablet 00:00: oral route 00 every day as needed Latuda 60 2020-0 No 1{table Q1D take 1 [facility] mg tablet 8-21 t} tablet by ealth 00:00: oral route 00 every day with food (at least 350 calories) temazepam 2020-0 No 1{capsu Q1D take 1 [facility] 30 mg 8-21 le} capsule by [facility] capsule 00:00: oral route 00 every day at bedtime as needed meloxicam 2020-0 No 2{table QD take 2 [facility] 7.5 mg 8-21 t} tablet by e[facility] tablet 00:00: oral route 00 every day as needed Latuda 60 2019-0 No 1{table Q1D take 1 [facility] mg tablet 8-21 t} tablet by ealth 00:00: oral route 00 every day with food (at least 350 calories) temazepam 2019-0 No 1{capsu Q1D take 1 [facility] 30 mg 8-21 le} capsule by e[facility] capsule 00:00: oral route 00 every day at bedtime as needed meloxicam 0 No 2{table QD take 2 [facility] 7.5 mg 8-21 t} tablet by e[facility] tablet 00:00: oral route 00 every day as needed Latuda 60 0 No 1{table Q1D take 1 [facility] mg tablet 8-21 t} tablet by ealth 00:00: oral route 00 every day with food (at least 350 calories) meloxicam 2019-0 No 2{table QD take 2 [facility] 7.5 mg 8-21 t} tablet by e[facility] tablet 00:00: oral route 00 every day as needed Latuda 60 2019-0 2020- No 1{table Q1D take 1 [facility] mg tablet 8-21 11-12 t} tablet by ealt [facility] 00:00: 00:00 oral route 00 :00 every day with food (at least 350 calories) Latuda 60 2019-0 2020- No 1{table Q1D take 1 [facility] mg tablet 8-21 11-12 t} tablet by ealt [facility] 00:00: 00:00 oral route 00 :00 every day with food (at least 350 calories) Latuda 60 2019-0 2020- No 1{table Q1D take 1 [facility] mg tablet 8-21 11-12 t} tablet by ealt h 00:00: 00:00 oral route 00 :00 every day with food (at least 350 calories) Latuda 60 2019-0 2020- No 1{table Q1D take 1 [facility] mg tablet 8-21 11-12 t} tablet by ealt h 00:00: 00:00 oral route 00 :00 every day with food (at least 350 calories) Latuda 60 2019-0 2020- No 1{table Q1D take 1 [facility] mg tablet 8-21 11-12 t} tablet by ealt h 00:00: 00:00 oral route 00 :00 every day with food (at least 350 calories) [facility] 60 2020- No 1{table Q1D take 1 [facility] mg tablet - 11-12 t} tablet by ealt h 00:00: 00:00 oral route 00 :00 every day with food (at least 350 calories) [facility] 60 2020- No 1{table Q1D take 1 [facility] mg tablet 8- 11-12 t} tablet by ealt h 00:00: 00:00 oral route 00 :00 every day with food (at least 350 calories) [facility] 60 2019- No 1{table Q1D take 1 [facility] mg tablet 06-05-12 t} tablet by ealt h 00:00: 00:00 oral route 00 :00 every day with food (at least 350 calories) [facility] 60 2019- No 1{table Q1D take 1 [facility] mg tablet 06-05-12 t} tablet by ealt h 00:00: 00:00 oral route 00 :00 every day with food (at least 350 calories) [facility] 60 2019- No 1{table Q1D take 1 [facility] mg tablet 06-05-12 t} tablet by ealt h 00:00: 00:00 oral route 00 :00 every day with food (at least 350 calories) [facility] 60 2020- No 1{table Q1D take 1 [facility] mg tablet -05 09-12 t} tablet by ealt h 00:00: 00:00 oral route 00 :00 every day with food (at least 350 calories) [facility] 60 2019- No 1{table Q1D take 1 [facility] mg tablet -05 09-12 t} tablet by ealt h 00:00: 00:00 oral route 00 :00 every day with food (at least 350 calories) [facility] 60 2019- No 1{table Q1D take 1 [facility] mg tablet 8- 11-12 t} tablet by ealt h 00:00: 00:00 oral route 00 :00 every day with food (at least 350 calories) [facility] 60 2019- No 1{table Q1D take 1 [facility] mg tablet 8- 11-12 t} tablet by ealt h 00:00: 00:00 oral route 00 :00 every day with food (at least 350 calories) [facility] 60 2020- No 1{table Q1D take 1 [facility] mg tablet 8-21 11-12 t} tablet by ealt h 00:00: 00:00 oral route 00 :00 every day with food (at least 350 calories) [facility] 60 2020- No 1{table Q1D take 1 [facility] mg tablet 8-21 11-12 t} tablet by ealt h 00:00: 00:00 oral route 00 :00 every day with food (at least 350 calories) [facility] 60 2019- No 1{table Q1D take 1 [facility] mg tablet 8-21 11-12 t} tablet by ealt h 00:00: 00:00 oral route 00 :00 every day with food (at least 350 calories) [facility] 60 2020- No 1{table Q1D take 1 [facility] mg tablet 8- 11-12 t} tablet by ealt h 00:00: 00:00 oral route 00 :00 every day with food (at least 350 calories) [facility] 60 2020- No 1{table Q1D take 1 [facility] mg tablet 8-21 11-12 t} tablet by ealt h 00:00: 00:00 oral route 00 :00 every day with food (at least 350 calories) [facility] 60 2020- No 1{table Q1D take 1 [facility] mg tablet 8-21 11-12 t} tablet by ealt h 00:00: 00:00 oral route 00 :00 every day with food (at least 350 calories) [facility] 60 2020- No 1{table Q1D take 1 [facility] mg tablet 8-21 11-12 t} tablet by ealt h 00:00: 00:00 oral route 00 :00 every day with food (at least 350 calories) meloxicam 2019- No 2{table QD take 2 [facility] 7.5 mg 8-21 10-20 t} tablet by ealth tablet 00:00: 00:00 oral route 00 :00 every day as needed meloxicam 2019- No 2{table QD take 2 [facility] 7.5 mg 8-21 10-20 t} tablet by ealth tablet 00:00: 00:00 oral route 00 :00 every day as needed meloxicam 2020-0 2020- No 2{table QD take 2 [facility] 7.5 mg 8-21 10-20 t} tablet by ealth tablet 00:00: 00:00 oral route 00 :00 every day as needed meloxicam 2020-0 2020- No 2{table QD take 2 [facility] 7.5 mg 8-21 10-20 t} tablet by ealth tablet 00:00: 00:00 oral route 00 :00 every day as needed meloxicam 2020-0 2020- No 2{table QD take 2 [facility] 7.5 mg 8-21 10-20 t} tablet by ealth tablet 00:00: 00:00 oral route 00 :00 every day as needed meloxicam 2020-0 2020- No 2{table QD take 2 [facility] 7.5 mg 8-21 10-20 t} tablet by ealth tablet 00:00: 00:00 oral route 00 :00 every day as needed meloxicam 2020-0 2020- No 2{table QD take 2 [facility] 7.5 mg 8-21 10-20 t} tablet by ealth tablet 00:00: 00:00 oral route 00 :00 every day as needed meloxicam 2020-0 2020- No 2{table QD take 2 [facility] 7.5 mg 8-21 10-20 t} tablet by ealth tablet 00:00: 00:00 oral route 00 :00 every day as needed meloxicam 2020-0 2020- No 2{table QD take 2 [facility] 7.5 mg 8-21 10-20 t} tablet by ealth tablet 00:00: 00:00 oral route 00 :00 every day as needed meloxicam 2020-0 2020- No 2{table QD take 2 [facility] 7.5 mg 8-21 10-20 t} tablet by ealth tablet 00:00: 00:00 oral route 00 :00 every day as needed meloxicam 2020-0 2020- No 2{table QD take 2 [facility] 7.5 mg 8-21 10-20 t} tablet by ealth tablet 00:00: 00:00 oral route 00 :00 every day as needed meloxicam 2020-0 2020- No 2{table QD take 2 [facility] 7.5 mg 8-21 10-20 t} tablet by ealth tablet 00:00: 00:00 oral route 00 :00 every day as needed meloxicam 2020-0 2020- No 2{table QD take 2 [facility] 7.5 mg 8-21 10-20 t} tablet by ealth tablet 00:00: 00:00 oral route 00 :00 every day as needed meloxicam 2019-0 2020- No 2{table QD take 2 [facility] 7.5 mg 8-21 10-20 t} tablet by ealth tablet 00:00: 00:00 oral route 00 :00 every day as needed meloxicam 2020-0 2020- No 2{table QD take 2 [facility] 7.5 mg 8-21 10-20 t} tablet by ealth tablet 00:00: 00:00 oral route 00 :00 every day as needed meloxicam 2020-0 2020- No 2{table QD take 2 [facility] 7.5 mg 8-21 10-20 t} tablet by ealth tablet 00:00: 00:00 oral route 00 :00 every day as needed meloxicam 2020-0 2020- No 2{table QD take 2 [facility] 7.5 mg 8-21 10-20 t} tablet by ealth tablet 00:00: 00:00 oral route 00 :00 every day as needed meloxicam 2020-0 2020- No 2{table QD take 2 [facility] 7.5 mg 8-21 10-20 t} tablet by ealth tablet 00:00: 00:00 oral route 00 :00 every day as needed meloxicam 2020-0 2020- No 2{table QD take 2 [facility] 7.5 mg 8-21 10-20 t} tablet by ealth tablet 00:00: 00:00 oral route 00 :00 every day as needed meloxicam 2020-0 2020- No 2{table QD take 2 [facility] 7.5 mg 8-21 10-20 t} tablet by ealth tablet 00:00: 00:00 oral route 00 :00 every day as needed meloxicam 2020-0 2020- No 2{table QD take 2 [facility] 7.5 mg 8-21 10-20 t} tablet by ealth tablet 00:00: 00:00 oral route 00 :00 every day as needed meloxicam 2020-0 2020- No 2{table QD take 2 [facility] 7.5 mg 8-21 10-20 t} tablet by ealth tablet 00:00: 00:00 oral route 00 :00 every day as needed meloxicam 2020-0 2020- No 2{table QD take 2 [facility] 7.5 mg 8-21 10-20 t} tablet by [facility] tablet 00:00: 00:00 oral route 00 :00 every day as needed temazepam 2020-0 2020- No 1{capsu Q1D take 1 [facility] 30 mg 8-21 10-06 le} capsule by [facility] capsule 00:00: 00:00 oral route 00 :00 every day at bedtime as needed temazepam 2020-0 2020- No 1{capsu Q1D take 1 [facility] 30 mg 8-21 10-06 le} capsule by [facility] capsule 00:00: 00:00 oral route 00 :00 every day at bedtime as needed temazepam 2020-0 2020- No 1{capsu Q1D take 1 [facility] 30 mg 8-21 10-06 le} capsule by [facility] capsule 00:00: 00:00 oral route 00 :00 every day at bedtime as needed temazepam 2020-0 2020- No 1{capsu Q1D take 1 [facility] 30 mg 8-21 10-06 le} capsule by ealth capsule 00:00: 00:00 oral route 00 :00 every day at bedtime as needed temazepam 2020-0 2020- No 1{capsu Q1D take 1 [facility] 30 mg 8-21 10-06 le} capsule by [facility] capsule 00:00: 00:00 oral route 00 :00 every day at bedtime as needed temazepam 2020-0 2020- No 1{capsu Q1D take 1 [facility] 30 mg 8-21 10-06 le} capsule by [facility] capsule 00:00: 00:00 oral route 00 :00 every day at bedtime as needed temazepam 2020-0 2020- No 1{capsu Q1D take 1 [facility] 30 mg 8-21 10-06 le} capsule by [facility] capsule 00:00: 00:00 oral route 00 :00 every day at bedtime as needed temazepam 2020-0 2020- No 1{capsu Q1D take 1 [facility] 30 mg 8-21 10-06 le} capsule by [facility] capsule 00:00: 00:00 oral route 00 :00 every day at bedtime as needed temazepam 2020-0 2020- No 1{capsu Q1D take 1 [facility] 30 mg 8-21 10-06 le} capsule by [facility] capsule 00:00: 00:00 oral route 00 :00 every day at bedtime as needed temazepam 2020-0 2020- No 1{capsu Q1D take 1 [facility] 30 mg 8-21 10-06 le} capsule by [facility] capsule 00:00: 00:00 oral route 00 :00 every day at bedtime as needed temazepam 2020-0 2020- No 1{capsu Q1D take 1 [facility] 30 mg 8-21 10-06 le} capsule by [facility] capsule 00:00: 00:00 oral route 00 :00 every day at bedtime as needed temazepam 2020-0 2020- No 1{capsu Q1D take 1 [facility] 30 mg 8-21 10-06 le} capsule by [facility] capsule 00:00: 00:00 oral route 00 :00 every day at bedtime as needed temazepam 2020-0 2020- No 1{capsu Q1D take 1 [facility] 30 mg 8-21 10-06 le} capsule by [facility] capsule 00:00: 00:00 oral route 00 :00 every day at bedtime as needed temazepam 2020-0 2020- No 1{capsu Q1D take 1 [facility] 30 mg 8-21 10-06 le} capsule by [facility] capsule 00:00: 00:00 oral route 00 :00 every day at bedtime as needed temazepam 2020-0 2020- No 1{capsu Q1D take 1 [facility] 30 mg 8-21 10-06 le} capsule by [facility] capsule 00:00: 00:00 oral route 00 :00 every day at bedtime as needed temazepam 2020-0 2020- No 1{capsu Q1D take 1 [facility] 30 mg 8-21 10-06 le} capsule by [facility] capsule 00:00: 00:00 oral route 00 :00 every day at bedtime as needed temazepam 2020-0 2020- No 1{capsu Q1D take 1 [facility] 30 mg 8-21 10-06 le} capsule by [facility] capsule 00:00: 00:00 oral route 00 :00 every day at bedtime as needed temazepam 2020-0 2020- No 1{capsu Q1D take 1 [facility] 30 mg 8-21 10-06 le} capsule by [facility] capsule 00:00: 00:00 oral route 00 :00 every day at bedtime as needed temazepam 2020-0 2020- No 1{capsu Q1D take 1 [facility] 30 mg 8-21 10-06 le} capsule by [facility] capsule 00:00: 00:00 oral route 00 :00 every day at bedtime as needed temazepam 2020-0 2020- No 1{capsu Q1D take 1 [facility] 30 mg 8-21 10-06 le} capsule by [facility] capsule 00:00: 00:00 oral route 00 :00 every day at bedtime as needed temazepam 2020-0 2020- No 1{capsu Q1D take 1 [facility] 30 mg 8-21 10-06 le} capsule by [facility] capsule 00:00: 00:00 oral route 00 :00 every day at bedtime as needed temazepam 2020-0 2020- No 1{capsu Q1D take 1 [facility] 30 mg 8-21 10-06 le} capsule by [facility] capsule 00:00: 00:00 oral route 00 :00 every day at bedtime as needed temazepam 2020-0 2020- No 1{capsu Q1D take 1 [facility] 30 mg 8-21 10-06 le} capsule by [facility] capsule 00:00: 00:00 oral route 00 :00 every day at bedtime as needed temazepam 2020-0 2020- No 1{capsu Q1D take 1 [facility] 30 mg 8-21 10-06 le} capsule by [facility] capsule 00:00: 00:00 oral route 00 :00 every day at bedtime as needed temazepam 2020-0 2020- No 1{capsu Q1D take 1 [facility] 30 mg 8-21 10-06 le} capsule by [facility] capsule 00:00: 00:00 oral route 00 :00 every day at bedtime as needed temazepam 2020-0 2020- No 1{capsu Q1D take 1 [facility] 30 mg 8-21 10-06 le} capsule by [facility] capsule 00:00: 00:00 oral route 00 :00 every day at bedtime as needed temazepam 2020-0 2020- No 1{capsu Q1D take 1 [facility] 30 mg 8-21 10-06 le} capsule by [facility] capsule 00:00: 00:00 oral route 00 :00 every day at bedtime as needed sertraline 2020-0 No 1{table Q1D take 1 [facility] 100 mg 8-20 t} tablet by [facility] tablet 00:00: oral route 00 every day gabapentin 2020-0 No 3{capsu Q8H take 3 [facility] 300 mg 8-20 le} capsule by [facility] capsule 00:00: oral route 00 3 times every day Advair 2020-0 No 1{puff} Q12H inhale 1 [facility] Diskus 100 8-20 puff by [facility] mcg-50 00:00: inhalation mcg/dose 00 route 2 powder for times inhalation every day in the morning and evening approximat jaya 12 hours apart for asthma diazepam 10 2019-0 No 1{table QD take 1 [facility] mg tablet 8-20 t} tablet by [facility] 00:00: oral route 00 every day as needed Klonopin 1 2020-0 No 1{table TID take 1 [facility] mg tablet 8-20 t} tablet by [facility] 00:00: oral route 00 3 times every day as needed for anxiety sertraline 2020-0 No 1{table Q1D take 1 [facility] 100 mg 8-20 t} tablet by [facility] tablet 00:00: oral route 00 every day gabapentin 2020-0 No 3{capsu Q8H take 3 [facility] 300 mg 8-20 le} capsule by [facility] capsule 00:00: oral route 00 3 times every day diazepam 10 2020-0 No 1{table QD take 1 [facility] mg tablet 8-20 t} tablet by [facility] 00:00: oral route 00 every day as needed Klonopin 1 2020-0 No 1{table TID take 1 [facility] mg tablet 8-20 t} tablet by [facility] 00:00: oral route 00 3 times every day as needed for anxiety ProAir HFA 2020-0 No 1{puff} Q4H inhale 1 med [facility] 90 8-20 puff by refill [facility] mcg/actuati 00:00: inhalation on aerosol 00 route inhaler every 4 hours as needed sertraline 2020-0 No 1{table Q1D take 1 [facility] 100 mg 8-20 t} tablet by [facility] tablet 00:00: oral route 00 every day gabapentin 2020-0 No 3{capsu Q8H take 3 [facility] 300 mg 8-20 le} capsule by [facility] capsule 00:00: oral route 00 3 times every day diazepam 10 2020-0 No 1{table QD take 1 [facility] mg tablet 8-20 t} tablet by [facility] 00:00: oral route 00 every day as needed Klonopin 1 2020-0 No 1{table TID take 1 [facility] mg tablet 8-20 t} tablet by [facility] 00:00: oral route 00 3 times every day as needed for anxiety sertraline 2020-0 No 1{table Q1D take 1 [facility] 100 mg 8-20 t} tablet by [facility] tablet 00:00: oral route 00 every day gabapentin 2020-0 No 3{capsu Q8H take 3 [facility] 300 mg 8-20 le} capsule by [facility] capsule 00:00: oral route 00 3 times every day diazepam 10 2020-0 No 1{table QD take 1 [facility] mg tablet 8-20 t} tablet by [facility] 00:00: oral route 00 every day as needed Klonopin 1 2020-0 No 1{table TID take 1 [facility] mg tablet 8-20 t} tablet by [facility] 00:00: oral route 00 3 times every day as needed for anxiety sertraline 2020-0 No 1{table Q1D take 1 [facility] 100 mg 8-20 t} tablet by [facility] tablet 00:00: oral route 00 every day gabapentin 2020-0 No 3{capsu Q8H take 3 [facility] 300 mg 8-20 le} capsule by [facility] capsule 00:00: oral route 00 3 times every day diazepam 10 2020-0 No 1{table QD take 1 [facility] mg tablet 8-20 t} tablet by [facility] 00:00: oral route 00 every day as needed sertraline 2020-0 No 1{table Q1D take 1 [facility] 100 mg 8-20 t} tablet by [facility] tablet 00:00: oral route 00 every day gabapentin 2019-0 No 3{capsu Q8H take 3 [facility] 300 mg 8-20 le} capsule by [facility] capsule 00:00: oral route 00 3 times every day diazepam 10 2019-0 No 1{table QD take 1 [facility] mg tablet 8-20 t} tablet by [facility] 00:00: oral route 00 every day as needed sertraline 2019-0 No 1{table Q1D take 1 [facility] 100 mg 8-20 t} tablet by [facility] tablet 00:00: oral route 00 every day gabapentin 2019-0 No 3{capsu Q8H take 3 [facility] 300 mg 8-20 le} capsule by [facility] capsule 00:00: oral route 00 3 times every day Advair No 1{puff} Q12H inhale 1 [facility] Diskus 100 8-20 puff by [facility] mcg-50 00:00: inhalation mcg/dose 00 route 2 powder for times inhalation every day in the morning and evening [facility] 12 hours apart for asthma diazepam 10 2019- No 1{table QD take 1 [facility] mg tablet 8-20 t} tablet by [facility] 00:00: oral route 00 every day as needed Klonopin 1 2019-0 No 1{table TID take 1 [facility] mg tablet 8-20 t} tablet by [facility] 00:00: oral route 00 3 times every day as needed for anxiety ProAir HFA 2019-0 No 1{puff} Q4H inhale 1 med [facility] 90 8-20 puff by refill [facility] mcg/actuati 00:00: inhalation on aerosol 00 route inhaler every 4 hours as needed sertraline 2019- No 1{table Q1D take 1 [facility] 100 mg 8-20 t} tablet by [facility] tablet 00:00: oral route 00 every day gabapentin 2019-0 No 3{capsu Q8H take 3 [facility] 300 mg 8-20 le} capsule by [facility] capsule 00:00: oral route 00 3 times every day Advair 2019- No 1{puff} Q12H inhale 1 [facility] Diskus 100 8-20 puff by [facility] mcg-50 00:00: inhalation mcg/dose 00 route 2 powder for times inhalation every day in the morning and evening approximat jaya 12 hours apart for asthma diazepam 10 2019- No 1{table QD take 1 [facility] mg tablet 8-20 t} tablet by [facility] 00:00: oral route 00 every day as needed Klonopin 1 2020-0 No 1{table TID take 1 [facility] mg tablet 8-20 t} tablet by [facility] 00:00: oral route 00 3 times every day as needed for anxiety ProAir HFA 2019-0 No 1{puff} Q4H inhale 1 med [facility] 90 8-20 puff by refill [facility] mcg/actuati 00:00: inhalation on aerosol 00 route inhaler every 4 hours as needed sertraline 2019- No 1{table Q1D take 1 [facility] 100 mg 8-20 t} tablet by [facility] tablet 00:00: oral route 00 every day gabapentin 2019-0 No 3{capsu Q8H take 3 [facility] 300 mg 8-20 le} capsule by [facility] capsule 00:00: oral route 00 3 times every day Advair 2019-0 No 1{puff} Q12H inhale 1 [facility] Diskus 100 8-20 puff by [facility] mcg-50 00:00: inhalation mcg/dose 00 route 2 powder for times inhalation every day in the morning and evening approximat jaya 12 hours apart for asthma diazepam 10 2019- No 1{table QD take 1 [facility] mg tablet 8-20 t} tablet by [facility] 00:00: oral route 00 every day as needed Klonopin 1 2020-0 No 1{table TID take 1 [facility] mg tablet 8-20 t} tablet by [facility] 00:00: oral route 00 3 times every day as needed for anxiety ProAir HFA 2019-0 No 1{puff} Q4H inhale 1 med [facility] 90 8-20 puff by refill [facility] mcg/actuati 00:00: inhalation on aerosol 00 route inhaler every 4 hours as needed sertraline 2019- No 1{table Q1D take 1 [facility] 100 mg 8-20 t} tablet by [facility] tablet 00:00: oral route 00 every day gabapentin 2019-0 No 3{capsu Q8H take 3 [facility] 300 mg 8-20 le} capsule by [facility] capsule 00:00: oral route 00 3 times every day Advair 2020-0 No 1{puff} Q12H inhale 1 [facility] Diskus 100 8-20 puff by [facility] mcg-50 00:00: inhalation mcg/dose 00 route 2 powder for times inhalation every day in the morning and evening approximat jaya 12 hours apart for asthma diazepam 10 2019-0 No 1{table QD take 1 [facility] mg tablet 8-20 t} tablet by [facility] 00:00: oral route 00 every day as needed Klonopin 1 2020-0 No 1{table TID take 1 [facility] mg tablet 8-20 t} tablet by [facility] 00:00: oral route 00 3 times every day as needed for anxiety ProAir HFA 2019-0 No 1{puff} Q4H inhale 1 med [facility] 90 8-20 puff by refill [facility] mcg/actuati 00:00: inhalation on aerosol 00 route inhaler every 4 hours as needed sertraline 2019-0 No 1{table Q1D take 1 [facility] 100 mg 8-20 t} tablet by [facility] tablet 00:00: oral route 00 every day gabapentin 2019-0 No 3{capsu Q8H take 3 [facility] 300 mg 8-20 le} capsule by [facility] capsule 00:00: oral route 00 3 times every day diazepam 10 2019-0 No 1{table QD take 1 [facility] mg tablet 8-20 t} tablet by [facility] 00:00: oral route 00 every day as needed Klonopin 1 2020-0 No 1{table TID take 1 [facility] mg tablet 8-20 t} tablet by [facility] 00:00: oral route 00 3 times every day as needed for anxiety ProAir HFA 2019-0 No 1{puff} Q4H inhale 1 med [facility] 90 8-20 puff by refill [facility] mcg/actuati 00:00: inhalation on aerosol 00 route inhaler every 4 hours as needed sertraline 2020-0 No 1{table Q1D take 1 [facility] 100 mg 8-20 t} tablet by [facility] tablet 00:00: oral route 00 every day gabapentin 2020-0 No 3{capsu Q8H take 3 [facility] 300 mg 8-20 le} capsule by [facility] capsule 00:00: oral route 00 3 times every day diazepam 10 2020-0 No 1{table QD take 1 [facility] mg tablet 8-20 t} tablet by [facility] 00:00: oral route 00 every day as needed Klonopin 1 2020-0 No 1{table TID take 1 [facility] mg tablet 8-20 t} tablet by [facility] 00:00: oral route 00 3 times every day as needed for anxiety ProAir HFA 2020-0 No 1{puff} Q4H inhale 1 med [facility] 90 8-20 puff by refill [facility] mcg/actuati 00:00: inhalation on aerosol 00 route inhaler every 4 hours as needed sertraline 2020-0 No 1{table Q1D take 1 [facility] 100 mg 8-20 t} tablet by [facility] tablet 00:00: oral route 00 every day gabapentin 2020-0 No 3{capsu Q8H take 3 [facility] 300 mg 8-20 le} capsule by [facility] capsule 00:00: oral route 00 3 times every day diazepam 10 2020-0 No 1{table QD take 1 [facility] mg tablet 8-20 t} tablet by [facility] 00:00: oral route 00 every day as needed Klonopin 1 2020-0 No 1{table TID take 1 [facility] mg tablet 8-20 t} tablet by [facility] 00:00: oral route 00 3 times every day as needed for anxiety ProAir HFA 2020-0 No 1{puff} Q4H inhale 1 med [facility] 90 8-20 puff by refill [facility] mcg/actuati 00:00: inhalation on aerosol 00 route inhaler every 4 hours as needed sertraline 2020-0 No 1{table Q1D take 1 [facility] 100 mg 8-20 t} tablet by [facility] tablet 00:00: oral route 00 every day gabapentin 2020-0 No 3{capsu Q8H take 3 [facility] 300 mg 8-20 le} capsule by [facility] capsule 00:00: oral route 00 3 times every day diazepam 10 2020-0 No 1{table QD take 1 [facility] mg tablet 8-20 t} tablet by [facility] 00:00: oral route 00 every day as needed Klonopin 1 2020-0 No 1{table TID take 1 [facility] mg tablet 8-20 t} tablet by [facility] 00:00: oral route 00 3 times every day as needed for anxiety ProAir HFA 2019-0 No 1{puff} Q4H inhale 1 med [facility] 90 8-20 puff by refill [facility] mcg/actuati 00:00: inhalation on aerosol 00 route inhaler every 4 hours as needed sertraline 2019-0 No 1{table Q1D take 1 [facility] 100 mg 8-20 t} tablet by [facility] tablet 00:00: oral route 00 every day gabapentin 2020-0 No 3{capsu Q8H take 3 [facility] 300 mg 8-20 le} capsule by [facility] capsule 00:00: oral route 00 3 times every day diazepam 10 2019-0 No 1{table QD take 1 [facility] mg tablet 8-20 t} tablet by [facility] 00:00: oral route 00 every day as needed Klonopin 1 2019-0 No 1{table TID take 1 [facility] mg tablet 8-20 t} tablet by [facility] 00:00: oral route 00 3 times every day as needed for anxiety ProAir HFA 2019-0 No 1{puff} Q4H inhale 1 med [facility] 90 8-20 puff by refill [facility] mcg/actuati 00:00: inhalation on aerosol 00 route inhaler every 4 hours as needed sertraline 2020-0 No 1{table Q1D take 1 [facility] 100 mg 8-20 t} tablet by [facility] tablet 00:00: oral route 00 every day gabapentin 2020-0 No 3{capsu Q8H take 3 [facility] 300 mg 8-20 le} capsule by [facility] capsule 00:00: oral route 00 3 times every day diazepam 10 2020-0 No 1{table QD take 1 [facility] mg tablet 8-20 t} tablet by [facility] 00:00: oral route 00 every day as needed Klonopin 1 2020-0 No 1{table TID take 1 [facility] mg tablet 8-20 t} tablet by [facility] 00:00: oral route 00 3 times every day as needed for anxiety ProAir HFA 2019-0 No 1{puff} Q4H inhale 1 med [facility] 90 8-20 puff by refill [facility] mcg/actuati 00:00: inhalation on aerosol 00 route inhaler every 4 hours as needed sertraline 2020-0 No 1{table Q1D take 1 [facility] 100 mg 8-20 t} tablet by [facility] tablet 00:00: oral route 00 every day gabapentin 2020-0 No 3{capsu Q8H take 3 [facility] 300 mg 8-20 le} capsule by [facility] capsule 00:00: oral route 00 3 times every day diazepam 10 2020-0 No 1{table QD take 1 [facility] mg tablet 8-20 t} tablet by [facility] 00:00: oral route 00 every day as needed Klonopin 1 2020-0 No 1{table TID take 1 [facility] mg tablet 8-20 t} tablet by [facility] 00:00: oral route 00 3 times every day as needed for anxiety sertraline 2020-0 2020- No 1{table Q1D take 1 [facility] 100 mg 8-20 11-12 t} tablet by [facility] tablet 00:00: 00:00 oral route 00 :00 every day gabapentin 2020-0 2020- No 3{capsu Q8H take 3 [facility] 300 mg 8-20 11-12 le} capsule by [facility] capsule 00:00: 00:00 oral route 00 :00 3 times every day diazepam 10 2020-0 2020- No 1{table QD take 1 [facility] mg tablet 8-20 11-12 t} tablet by [facility] 00:00: 00:00 oral route 00 :00 every day as needed sertraline 2020-0 2020- No 1{table Q1D take 1 [facility] 100 mg 8-20 11-12 t} tablet by [facility] tablet 00:00: 00:00 oral route 00 :00 every day gabapentin 2020-0 2020- No 3{capsu Q8H take 3 [facility] 300 mg 8-20 11-12 le} capsule by [facility] capsule 00:00: 00:00 oral route 00 :00 3 times every day diazepam 10 2020-0 2020- No 1{table QD take 1 [facility] mg tablet 8-20 11-12 t} tablet by [facility] 00:00: 00:00 oral route 00 :00 every day as needed sertraline 2019-0 2020- No 1{table Q1D take 1 [facility] 100 mg 8-20 11-12 t} tablet by [facility] tablet 00:00: 00:00 oral route 00 :00 every day gabapentin 2020-0 2020- No 3{capsu Q8H take 3 A [facility] 300 mg 8-20 11-12 le} capsule by [facility] capsule 00:00: 00:00 oral route 00 :00 3 times every day diazepam 10 2019-0 2020- No 1{table QD take 1 [facility] mg tablet 8-20 11-12 t} tablet by [facility] 00:00: 00:00 oral route 00 :00 every day as needed sertraline 2019-0 2020- No 1{table Q1D take 1 [facility] 100 mg 8-20 11-12 t} tablet by [facility] tablet 00:00: 00:00 oral route 00 :00 every day gabapentin 2019-0 2020- No 3{capsu Q8H take 3 [facility] 300 mg 8-20 11-12 le} capsule by [facility] capsule 00:00: 00:00 oral route 00 :00 3 times every day diazepam 10 2019-0 2020- No 1{table QD take 1 [facility] mg tablet 8-20 11-12 t} tablet by [facility] 00:00: 00:00 oral route 00 :00 every day as needed sertraline 2019-0 2020- No 1{table Q1D take 1 [facility] 100 mg 8-20 11-12 t} tablet by [facility] tablet 00:00: 00:00 oral route 00 :00 every day gabapentin 2019-0 2020- No 3{capsu Q8H take 3 [facility] 300 mg 8-20 11-12 le} capsule by [facility] capsule 00:00: 00:00 oral route 00 :00 3 times every day diazepam 10 2019-0 2020- No 1{table QD take 1 [facility] mg tablet 8-20 11-12 t} tablet by [facility] 00:00: 00:00 oral route 00 :00 every day as needed sertraline 2019-0 2020- No 1{table Q1D take 1 [facility] 100 mg 8-20 11-12 t} tablet by [facility] tablet 00:00: 00:00 oral route 00 :00 every day gabapentin 2020-0 2020- No 3{capsu Q8H take 3 [facility] 300 mg 8-20 11-12 le} capsule by [facility] capsule 00:00: 00:00 oral route 00 :00 3 times every day diazepam 10 2019-0 2020- No 1{table QD take 1 [facility] mg tablet 8-20 11-12 t} tablet by [facility] 00:00: 00:00 oral route 00 :00 every day as needed sertraline 2019-0 2020- No 1{table Q1D take 1 [facility] 100 mg 8-20 11-12 t} tablet by [facility] tablet 00:00: 00:00 oral route 00 :00 every day gabapentin 2020-0 2020- No 3{capsu Q8H take 3 A [facility] 300 mg 8-20 11-12 le} capsule by [facility] capsule 00:00: 00:00 oral route 00 :00 3 times every day diazepam 10 2019- 2020- No 1{table QD take 1 [facility] mg tablet 8-20 11-12 t} tablet by [facility] 00:00: 00:00 oral route 00 :00 every day as needed sertraline 2019-0 2020- No 1{table Q1D take 1 [facility] 100 mg 8-20 11-12 t} tablet by [facility] tablet 00:00: 00:00 oral route 00 :00 every day gabapentin 2019-0 2020- No 3{capsu Q8H take 3 [facility] 300 mg 8-20 11-12 le} capsule by [facility] capsule 00:00: 00:00 oral route 00 :00 3 times every day diazepam 10 2019-0 2020- No 1{table QD take 1 [facility] mg tablet 8-20 11-12 t} tablet by [facility] 00:00: 00:00 oral route 00 :00 every day as needed sertraline 2019-0 2020- No 1{table Q1D take 1 [facility] 100 mg 8-20 11-12 t} tablet by [facility] tablet 00:00: 00:00 oral route 00 :00 every day gabapentin 2020-0 2020- No 3{capsu Q8H take 3 [facility] 300 mg 8-20 11-12 le} capsule by [facility] capsule 00:00: 00:00 oral route 00 :00 3 times every day diazepam 10 2019-0 2020- No 1{table QD take 1 [facility] mg tablet 8-20 11-12 t} tablet by [facility] 00:00: 00:00 oral route 00 :00 every day as needed sertraline 2019-0 2020- No 1{table Q1D take 1 [facility] 100 mg 8-20 11-12 t} tablet by [facility] tablet 00:00: 00:00 oral route 00 :00 every day gabapentin 2020-0 2020- No 3{capsu Q8H take 3 [facility] 300 mg 8-20 11-12 le} capsule by [facility] capsule 00:00: 00:00 oral route 00 :00 3 times every day diazepam 10 2019-0 2020- No 1{table QD take 1 [facility] mg tablet 8-20 11-12 t} tablet by [facility] 00:00: 00:00 oral route 00 :00 every day as needed sertraline 2019-0 2020- No 1{table Q1D take 1 [facility] 100 mg 8-20 11-12 t} tablet by [facility] tablet 00:00: 00:00 oral route 00 :00 every day gabapentin 2019-0 2020- No 3{capsu Q8H take 3 [facility] 300 mg 8-20 11-12 le} capsule by [facility] capsule 00:00: 00:00 oral route 00 :00 3 times every day diazepam 10 2019-0 2020- No 1{table QD take 1 [facility] mg tablet 8-20 11-12 t} tablet by [facility] 00:00: 00:00 oral route 00 :00 every day as needed sertraline 2019-0 2020- No 1{table Q1D take 1 [facility] 100 mg 8-20 11-12 t} tablet by [facility] tablet 00:00: 00:00 oral route 00 :00 every day gabapentin 2020-0 2020- No 3{capsu Q8H take 3 A [facility] 300 mg 8-20 11-12 le} capsule by [facility] capsule 00:00: 00:00 oral route 00 :00 3 times every day diazepam 10 2019-0 2020- No 1{table QD take 1 [facility] mg tablet 8-20 11-12 t} tablet by [facility] 00:00: 00:00 oral route 00 :00 every day as needed sertraline 2019-0 2020- No 1{table Q1D take 1 [facility] 100 mg 8-20 11-12 t} tablet by [facility] tablet 00:00: 00:00 oral route 00 :00 every day gabapentin 2020-0 2020- No 3{capsu Q8H take 3 [facility] 300 mg 8-20 11-12 le} capsule by [facility] capsule 00:00: 00:00 oral route 00 :00 3 times every day diazepam 10 2020-0 2020- No 1{table QD take 1 [facility] mg tablet 8-20 11-12 t} tablet by [facility] 00:00: 00:00 oral route 00 :00 every day as needed sertraline 2020-0 2020- No 1{table Q1D take 1 [facility] 100 mg 8-20 11-12 t} tablet by [facility] tablet 00:00: 00:00 oral route 00 :00 every day gabapentin 2020-0 2020- No 3{capsu Q8H take 3 [facility] 300 mg 8-20 11-12 le} capsule by [facility] capsule 00:00: 00:00 oral route 00 :00 3 times every day diazepam 10 2020-0 2020- No 1{table QD take 1 [facility] mg tablet 8-20 11-12 t} tablet by [facility] 00:00: 00:00 oral route 00 :00 every day as needed sertraline 2020-0 2020- No 1{table Q1D take 1 [facility] 100 mg 8-20 11-12 t} tablet by [facility] tablet 00:00: 00:00 oral route 00 :00 every day gabapentin 2020-0 2020- No 3{capsu Q8H take 3 [facility] 300 mg 8-20 11-12 le} capsule by [facility] capsule 00:00: 00:00 oral route 00 :00 3 times every day diazepam 10 2020-0 2020- No 1{table QD take 1 [facility] mg tablet 8-20 11-12 t} tablet by [facility] 00:00: 00:00 oral route 00 :00 every day as needed sertraline 2020-0 2020- No 1{table Q1D take 1 [facility] 100 mg 8-20 11-12 t} tablet by [facility] tablet 00:00: 00:00 oral route 00 :00 every day gabapentin 2020-0 2020- No 3{capsu Q8H take 3 [facility] 300 mg 8-20 11-12 le} capsule by [facility] capsule 00:00: 00:00 oral route 00 :00 3 times every day diazepam 10 2019-0 2020- No 1{table QD take 1 [facility] mg tablet 8-20 11-12 t} tablet by [facility] 00:00: 00:00 oral route 00 :00 every day as needed sertraline 2019-0 2020- No 1{table Q1D take 1 [facility] 100 mg 8-20 11-12 t} tablet by [facility] tablet 00:00: 00:00 oral route 00 :00 every day gabapentin 2019-0 2020- No 3{capsu Q8H take 3 A [facility] 300 mg 8-20 11-12 le} capsule by [facility] capsule 00:00: 00:00 oral route 00 :00 3 times every day diazepam 10 2019-0 2020- No 1{table QD take 1 [facility] mg tablet 8-20 11-12 t} tablet by [facility] 00:00: 00:00 oral route 00 :00 every day as needed sertraline 2019-0 2020- No 1{table Q1D take 1 [facility] 100 mg 8-20 11-12 t} tablet by [facility] tablet 00:00: 00:00 oral route 00 :00 every day gabapentin 2019-0 2020- No 3{capsu Q8H take 3 A [facility] 300 mg 8-20 11-12 le} capsule by [facility] capsule 00:00: 00:00 oral route 00 :00 3 times every day diazepam 10 2019-0 2020- No 1{table QD take 1 [facility] mg tablet 8-20 11-12 t} tablet by [facility] 00:00: 00:00 oral route 00 :00 every day as needed sertraline 2019-0 2020- No 1{table Q1D take 1 [facility] 100 mg 8-20 11-12 t} tablet by [facility] tablet 00:00: 00:00 oral route 00 :00 every day gabapentin 2020-0 2020- No 3{capsu Q8H take 3 A [facility] 300 mg 8-20 11-12 le} capsule by [facility] capsule 00:00: 00:00 oral route 00 :00 3 times every day diazepam 10 2019-0 2020- No 1{table QD take 1 [facility] mg tablet 8-20 11-12 t} tablet by [facility] 00:00: 00:00 oral route 00 :00 every day as needed sertraline 2019-0 2020- No 1{table Q1D take 1 [facility] 100 mg 8-20 11-12 t} tablet by [facility] tablet 00:00: 00:00 oral route 00 :00 every day gabapentin 2019-0 2020- No 3{capsu Q8H take 3 A [facility] 300 mg 8-20 11-12 le} capsule by [facility] capsule 00:00: 00:00 oral route 00 :00 3 times every day diazepam 10 2019- 2020- No 1{table QD take 1 [facility] mg tablet 8-20 11-12 t} tablet by [facility] 00:00: 00:00 oral route 00 :00 every day as needed sertraline 2019- 2020- No 1{table Q1D take 1 [facility] 100 mg 8-20 11-12 t} tablet by [facility] tablet 00:00: 00:00 oral route 00 :00 every day gabapentin 2019- 2020- No 3{capsu Q8H take 3 [facility] 300 mg 8-20 11-12 le} capsule by [facility] capsule 00:00: 00:00 oral route 00 :00 3 times every day diazepam 10 2019- 2020- No 1{table QD take 1 [facility] mg tablet 8-20 11-12 t} tablet by [facility] 00:00: 00:00 oral route 00 :00 every day as needed Klonopin 1 2019- 2020- No 1{table TID take 1 [facility] mg tablet 8-20 10-20 t} tablet by [facility] 00:00: 00:00 oral route 00 :00 3 times every day as needed for anxiety Klonopin 1 2019- 2020- No 1{table TID take 1 [facility] mg tablet 8-20 10-20 t} tablet by [facility] 00:00: 00:00 oral route 00 :00 3 times every day as needed for anxiety Klonopin 1 2019- 2020- No 1{table TID take 1 [facility] mg tablet 8-20 10-20 t} tablet by [facility] 00:00: 00:00 oral route 00 :00 3 times every day as needed for anxiety Klonopin 1 2019-0 2020- No 1{table TID take 1 [facility] mg tablet 8-20 10-20 t} tablet by [facility] 00:00: 00:00 oral route 00 :00 3 times every day as needed for anxiety Klonopin 1 2020-0 2020- No 1{table TID take 1 [facility] mg tablet 8-20 10-20 t} tablet by [facility] 00:00: 00:00 oral route 00 :00 3 times every day as needed for anxiety Klonopin 1 2019- 2020- No 1{table TID take 1 [facility] mg tablet 8-20 10-20 t} tablet by [facility] 00:00: 00:00 oral route 00 :00 3 times every day as needed for anxiety Klonopin 1 2019- 2020- No 1{table TID take 1 [facility] mg tablet 8-20 10-20 t} tablet by [facility] 00:00: 00:00 oral route 00 :00 3 times every day as needed for anxiety Klonopin 1 2019- 2020- No 1{table TID take 1 [facility] mg tablet 8-20 10-20 t} tablet by [facility] 00:00: 00:00 oral route 00 :00 3 times every day as needed for anxiety Klonopin 1 2019-0 2020- No 1{table TID take 1 [facility] mg tablet 8-20 10-20 t} tablet by [facility] 00:00: 00:00 oral route 00 :00 3 times every day as needed for anxiety Klonopin 1 2019-0 2020- No 1{table TID take 1 [facility] mg tablet 8-20 10-20 t} tablet by [facility] 00:00: 00:00 oral route 00 :00 3 times every day as needed for anxiety Klonopin 1 2019-0 2020- No 1{table TID take 1 [facility] mg tablet 8-20 10-20 t} tablet by [facility] 00:00: 00:00 oral route 00 :00 3 times every day as needed for anxiety Klonopin 1 2019-0 2020- No 1{table TID take 1 [facility] mg tablet 8-20 10-20 t} tablet by [facility] 00:00: 00:00 oral route 00 :00 3 times every day as needed for anxiety Klonopin 1 2020-0 2020- No 1{table TID take 1 [facility] mg tablet 8-20 10-20 t} tablet by [facility] 00:00: 00:00 oral route 00 :00 3 times every day as needed for anxiety Klonopin 1 2020-0 2020- No 1{table TID take 1 [facility] mg tablet 8-20 10-20 t} tablet by [facility] 00:00: 00:00 oral route 00 :00 3 times every day as needed for anxiety Klonopin 1 2020-0 2020- No 1{table TID take 1 [facility] mg tablet 8-20 10-20 t} tablet by [facility] 00:00: 00:00 oral route 00 :00 3 times every day as needed for anxiety Klonopin 1 2020-0 2020- No 1{table TID take 1 [facility] mg tablet 8-20 10-20 t} tablet by [facility] 00:00: 00:00 oral route 00 :00 3 times every day as needed for anxiety Klonopin 1 2019-0 2020- No 1{table TID take 1 [facility] mg tablet 8-20 10-20 t} tablet by [facility] 00:00: 00:00 oral route 00 :00 3 times every day as needed for anxiety Klonopin 1 2020-0 2020- No 1{table TID take 1 [facility] mg tablet 8-20 10-20 t} tablet by [facility] 00:00: 00:00 oral route 00 :00 3 times every day as needed for anxiety Klonopin 1 2020-0 2020- No 1{table TID take 1 [facility] mg tablet 8-20 10-20 t} tablet by [facility] 00:00: 00:00 oral route 00 :00 3 times every day as needed for anxiety Klonopin 1 2020-0 2020- No 1{table TID take 1 [facility] mg tablet 8-20 10-20 t} tablet by [facility] 00:00: 00:00 oral route 00 :00 3 times every day as needed for anxiety Klonopin 1 2020-0 2020- No 1{table TID take 1 [facility] mg tablet 8-20 10-20 t} tablet by [facility] 00:00: 00:00 oral route 00 :00 3 times every day as needed for anxiety Klonopin 1 2019- 2020- No 1{table TID take 1 [facility] mg tablet 8-20 10-20 t} tablet by [facility] 00:00: 00:00 oral route 00 :00 3 times every day as needed for anxiety Klonopin 1 2019- 2020- No 1{table TID take 1 [facility] mg tablet 8-20 10-20 t} tablet by [facility] 00:00: 00:00 oral route 00 :00 3 times every day as needed for anxiety ProAir HFA 2020- No 1{puff} Q4H inhale 1 med [facility] 90 8-20 10-03 puff by refill [facility] mcg/actuati 00:00: 00:00 inhalation on aerosol 00 :00 route inhaler every 4 hours as needed ProAir HFA 2019- No 1{puff} Q4H inhale 1 med [facility] 90 8-20 10-03 puff by refill [facility]cg/actuati 00:00: 00:00 inhalation on aerosol 00 :00 route inhaler every 4 hours as needed ProAir HFA 2019- No 1{puff} Q4H inhale 1 med [facility] 90 8-20 10-03 puff by refill [facility]cg/actuati 00:00: 00:00 inhalation on aerosol 00 :00 route inhaler every 4 hours as needed ProAir HFA 2019- No 1{puff} Q4H inhale 1 [facility] 90 8-20 10-03 puff by refill [facility]cg/actuati 00:00: 00:00 inhalation on aerosol 00 :00 route inhaler every 4 hours as needed ProAir HFA 2019- No 1{puff} Q4H inhale 1 [facility] 90 8-20 10-03 puff by refill [facility]cg/actuati 00:00: 00:00 inhalation on aerosol 00 :00 route inhaler every 4 hours as needed ProAir HFA 2020- No 1{puff} Q4H inhale 1 [facility] 90 8-20 10-03 puff by refill [facility]cg/actuati 00:00: 00:00 inhalation on aerosol 00 :00 route inhaler every 4 hours as needed ProAir HFA 2019- No 1{puff} Q4H inhale 1 [facility] 90 8-20 10-03 puff by refill [facility]cg/actuati 00:00: 00:00 inhalation on aerosol 00 :00 route inhaler every 4 hours as needed ProAir HFA 2019- No 1{puff} Q4H inhale 1 [facility] 90 8-20 10-03 puff by refill [facility]cg/actuati 00:00: 00:00 inhalation on aerosol 00 :00 route inhaler every 4 hours as needed ProAir HFA 2019- No 1{puff} Q4H inhale 1 med [facility] 90 8-20 10-03 puff by refill [facility]cg/actuati 00:00: 00:00 inhalation on aerosol 00 :00 route inhaler every 4 hours as needed ProAir HFA 2019- No 1{puff} Q4H inhale 1 med [facility] 90 8-20 10-03 puff by refill [facility]cg/actuati 00:00: 00:00 inhalation on aerosol 00 :00 route inhaler every 4 hours as needed ProAir HFA 2019- No 1{puff} Q4H inhale 1 med [facility] 90 8-20 10-03 puff by refill [facility]cg/actuati 00:00: 00:00 inhalation on aerosol 00 :00 route inhaler every 4 hours as needed ProAir HFA 2019- No 1{puff} Q4H inhale 1 med [facility] 90 8-20 10-03 puff by refill [facility]cg/actuati 00:00: 00:00 inhalation on aerosol 00 :00 route inhaler every 4 hours as needed ProAir HFA 2019- No 1{puff} Q4H inhale 1 med [facility] 90 8-20 10-03 puff by refill [facility]cg/actuati 00:00: 00:00 inhalation on aerosol 00 :00 route inhaler every 4 hours as needed ProAir HFA 2020- No 1{puff} Q4H inhale 1 med [facility] 90 8-20 10-03 puff by refill [facility]cg/actuati 00:00: 00:00 inhalation on aerosol 00 :00 route inhaler every 4 hours as needed ProAir HFA 2019- 2020- No 1{puff} Q4H inhale 1 med [facility] 90 8-20 10-03 puff by refill [facility]cg/actuati 00:00: 00:00 inhalation on aerosol 00 :00 route inhaler every 4 hours as needed ProAir HFA 2020- No 1{puff} Q4H inhale 1 med [facility] 90 8-20 10-03 puff by refill [facility]cg/actuati 00:00: 00:00 inhalation on aerosol 00 :00 route inhaler every 4 hours as needed ProAir HFA 2019- 2020- No 1{puff} Q4H inhale 1 med [facility] 90 8-20 10-03 puff by refill [facility]cg/actuati 00:00: 00:00 inhalation on aerosol 00 :00 route inhaler every 4 hours as needed ProAir HFA 2019- No 1{puff} Q4H inhale 1 med [facility] 90 8-20 10-03 puff by refill [facility]cg/actuati 00:00: 00:00 inhalation on aerosol 00 :00 route inhaler every 4 hours as needed ProAir HFA 2020- No 1{puff} Q4H inhale 1 med [facility] 90 8-20 10-03 puff by refill [facility]cg/actuati 00:00: 00:00 inhalation on aerosol 00 :00 route inhaler every 4 hours as needed ProAir HFA 2020- No 1{puff} Q4H inhale 1 med [facility] 90 8-20 10-03 puff by refill [facility]cg/actuati 00:00: 00:00 inhalation on aerosol 00 :00 route inhaler every 4 hours as needed ProAir HFA 2020- No 1{puff} Q4H inhale 1 med [facility] 90 8-20 10-03 puff by refill [facility]/actuati 00:00: 00:00 inhalation on aerosol 00 :00 route inhaler every 4 hours as needed ProAir HFA 2020- No 1{puff} Q4H inhale 1 med [facility] 90 8-20 10-03 puff by refill [facility]/actuati 00:00: 00:00 inhalation on aerosol 00 :00 route inhaler every 4 hours as needed ProAir HFA 2019- No 1{puff} Q4H inhale 1 [facility] 90 8-20 10-03 puff by refill [facility]/actuati 00:00: 00:00 inhalation on aerosol 00 :00 route inhaler every 4 hours as needed ProAir HFA 2019- No 1{puff} Q4H inhale 1 med [facility] 90 8-20 10-03 puff by refill [facility]/actuati 00:00: 00:00 inhalation on aerosol 00 :00 route inhaler every 4 hours as needed ProAir HFA 2019- No 1{puff} Q4H inhale 1 med [facility] 90 8-20 10-03 puff by refill [facility]/actuati 00:00: 00:00 inhalation on aerosol 00 :00 route inhaler every 4 hours as needed ProAir HFA 2019- No 1{puff} Q4H inhale 1 med [facility] 90 8-20 10-03 puff by refill [facility]cg/actuati 00:00: 00:00 inhalation on aerosol 00 :00 route inhaler every 4 hours as needed ProAir HFA 2019- No 1{puff} Q4H inhale 1 med [facility] 90 8-20 10-03 puff by refill [facility]cg/actuati 00:00: 00:00 inhalation on aerosol 00 :00 route inhaler every 4 hours as needed Advair 2019- No 1{puff} Q12H inhale 1 [facility] Diskus 100 8-20 09-08 puff by [email or web address] 00:00: 00:00 inhalation mcg/dose 00 :00 route 2 powder for times inhalation every day in the morning and evening approximat jaya 12 hours apart for asthma Advair 2019- 2020- No 1{puff} Q12H inhale 1 [facility] Diskus 100 8-20 09-08 puff by [email or web address] 00:00: 00:00 inhalation mcg/dose 00 :00 route 2 powder for times inhalation every day in the morning and evening approximat jaya 12 hours apart for asthma Advair 2020-0 2020- No 1{puff} Q12H inhale 1 [facility] Diskus 100 8-20 09-08 puff by [email or web address] 00:00: 00:00 inhalation mcg/dose 00 :00 route 2 powder for times inhalation every day in the morning and evening approximat jaya 12 hours apart for asthma Advair 2020- 2020- No 1{puff} Q12H inhale 1 [facility] Diskus 100 8-20 09-08 puff by [email or web address] 00:00: 00:00 inhalation mcg/dose 00 :00 route 2 powder for times inhalation every day in the morning and evening approximat jaya 12 hours apart for asthma Advair 2020- 2020- No 1{puff} Q12H inhale 1 [facility] Diskus 100 8-20 09-08 puff by [email or web address] 00:00: 00:00 inhalation mcg/dose 00 :00 route 2 powder for times inhalation every day in the morning and evening approximat jaya 12 hours apart for asthma Advair 2019- 2020- No 1{puff} Q12H inhale 1 [facility] Diskus 100 8-20 09-08 puff by [email or web address] 00:00: 00:00 inhalation mcg/dose 00 :00 route 2 powder for times inhalation every day in the morning and evening approximat jaya 12 hours apart for asthma Advair 2020-0 2020- No 1{puff} Q12H inhale 1 [facility] Diskus 100 8-20 09-08 puff by [email or web address] 00:00: 00:00 inhalation mcg/dose 00 :00 route 2 powder for times inhalation every day in the morning and evening approximat jaya 12 hours apart for asthma Advair 2020-0 2020- No 1{puff} Q12H inhale 1 [facility] Diskus 100 8-20 09-08 puff by [email or web address] 00:00: 00:00 inhalation mcg/dose 00 :00 route 2 powder for times inhalation every day in the morning and evening approximat jaya 12 hours apart for asthma Advair 2020-0 2020- No 1{puff} Q12H inhale 1 [facility] Diskus 100 8-20 09-08 puff by [email or web address] 00:00: 00:00 inhalation mcg/dose 00 :00 route 2 powder for times inhalation every day in the morning and evening approximat jaya 12 hours apart for asthma Advair 2020-0 2020- No 1{puff} Q12H inhale 1 [facility] Diskus 100 8-20 09-08 puff by [email or web address] 00:00: 00:00 inhalation mcg/dose 00 :00 route 2 powder for times inhalation every day in the morning and evening approximat jaya 12 hours apart for asthma Advair 2019- 2020- No 1{puff} Q12H inhale 1 [facility] Diskus 100 8-20 09-08 puff by [email or web address] 00:00: 00:00 inhalation mcg/dose 00 :00 route 2 powder for times inhalation every day in the morning and evening approximat jaya 12 hours apart for asthma Advair 2019- 2020- No 1{puff} Q12H inhale 1 [facility] Diskus 100 8-20 09-08 puff by [email or web address] 00:00: 00:00 inhalation mcg/dose 00 :00 route 2 powder for times inhalation every day in the morning and evening approximat jaya 12 hours apart for asthma Advair 2019- 2020- No 1{puff} Q12H inhale 1 [facility] Diskus 100 8-20 09-08 puff by [email or web address] 00:00: 00:00 inhalation mcg/dose 00 :00 route 2 powder for times inhalation every day in the morning and evening approximat jaya 12 hours apart for asthma Advair 2020- 2020- No 1{puff} Q12H inhale 1 [facility] Diskus 100 8-20 09-08 puff by [email or web address] 00:00: 00:00 inhalation mcg/dose 00 :00 route 2 powder for times inhalation every day in the morning and evening approximat jaya 12 hours apart for asthma Advair 2020-0 2020- No 1{puff} Q12H inhale 1 [facility] Diskus 100 8-20 09-08 puff by [email or web address] 00:00: 00:00 inhalation mcg/dose 00 :00 route 2 powder for times inhalation every day in the morning and evening approximat jaya 12 hours apart for asthma Advair 2020- 2020- No 1{puff} Q12H inhale 1 [facility] Diskus 100 8-20 09-08 puff by [email or web address] 00:00: 00:00 inhalation mcg/dose 00 :00 route 2 powder for times inhalation every day in the morning and evening approximat jaya 12 hours apart for asthma Advair 2020-0 2020- No 1{puff} Q12H inhale 1 [facility] Diskus 100 8-20 09-08 puff by [email or web address] 00:00: 00:00 inhalation mcg/dose 00 :00 route 2 powder for times inhalation every day in the morning and evening approximat jaya 12 hours apart for asthma Advair 2020-0 2020- No 1{puff} Q12H inhale 1 [facility] Diskus 100 8-20 09-08 puff by [email or web address] 00:00: 00:00 inhalation mcg/dose 00 :00 route 2 powder for times inhalation every day in the morning and evening approximat jaya 12 hours apart for asthma Advair 2020-0 2020- No 1{puff} Q12H inhale 1 [facility] Diskus 100 8-20 09-08 puff by [email or web address] 00:00: 00:00 inhalation mcg/dose 00 :00 route 2 powder for times inhalation every day in the morning and evening approximat jaya 12 hours apart for asthma Advair 2020-0 2020- No 1{puff} Q12H inhale 1 [facility] Diskus 100 8-20 09-08 puff by [email or web address] 00:00: 00:00 inhalation mcg/dose 00 :00 route 2 powder for times inhalation every day in the morning and evening approximat jaya 12 hours apart for asthma Advair 2020-0 2020- No 1{puff} Q12H inhale 1 [facility] Diskus 100 8-20 09-08 puff by [email or web address] 00:00: 00:00 inhalation mcg/dose 00 :00 route 2 powder for times inhalation every day in the morning and evening approximat jaya 12 hours apart for asthma Advair 2020-0 2020- No 1{puff} Q12H inhale 1 [facility] Diskus 100 8-20 09-08 puff by [email or web address] 00:00: 00:00 inhalation mcg/dose 00 :00 route 2 powder for times inhalation every day in the morning and evening approximat jaya 12 hours apart for asthma Advair 2020- 2020- No 1{puff} Q12H inhale 1 [facility] Diskus 100 8-20 09-08 puff by [facility] [email or web address] 00:00: 00:00 inhalation mcg/dose 00 :00 route 2 powder for times inhalation every day in the morning and evening approximat jaya 12 hours apart for asthma Advair 2020- 2020- No 1{puff} Q12H inhale 1 [facility] Diskus 100 8-20 09-08 puff by [email or web address] 00:00: 00:00 inhalation mcg/dose 00 :00 route 2 powder for times inhalation every day in the morning and evening approximat jaya 12 hours apart for asthma Advair 2020- 2020- No 1{puff} Q12H inhale 1 [facility] Diskus 100 8-20 09-08 puff by [facility] [email or web address] 00:00: 00:00 inhalation mcg/dose 00 :00 route 2 powder for times inhalation every day in the morning and evening approximat jaya 12 hours apart for asthma Advair 2019-0 2020- No 1{puff} Q12H inhale 1 [facility] Diskus 100 8-20 09-08 puff by [facility] [email or web address] 00:00: 00:00 inhalation mcg/dose 00 :00 route 2 powder for times inhalation every day in the morning and evening approximat jaya 12 hours apart for asthma Advair 2020-0 2020- No 1{puff} Q12H inhale 1 [facility] Diskus 100 8-20 09-08 puff by [email or web address] 00:00: 00:00 inhalation mcg/dose 00 :00 route 2 powder for times inhalation every day in the morning and evening approximat jaya 12 hours apart for asthma Advair 2020-0 2020- No 1{puff} Q12H inhale 1 [facility] Diskus 100 8-20 09-08 puff by [email or web address] 00:00: 00:00 inhalation mcg/dose 00 :00 route 2 powder for times inhalation every day in the morning and evening approximat jaya 12 hours apart for asthma Advair 2020-0 2020- No 1{puff} Q12H inhale 1 [facility] Diskus 100 8-20 09-08 puff by [facility] [email or web address] 00:00: 00:00 inhalation mcg/dose 00 :00 route 2 powder for times inhalation every day in the morning and evening approximat jaya 12 hours apart for asthma Advair 2020-0 2020- No 1{puff} Q12H inhale 1 [facility] Diskus 100 8-20 09-08 puff by [facility] [email or web address] 00:00: 00:00 inhalation mcg/dose 00 :00 route 2 powder for times inhalation every day in the morning and evening approximat jaya 12 hours apart for asthma Advair 2020-0 2020- No 1{puff} Q12H inhale 1 [facility] Diskus 100 8-20 09-08 puff by [facility] [email or web address] 00:00: 00:00 inhalation mcg/dose 00 :00 route 2 powder for times inhalation every day in the morning and evening approximat jaya 12 hours apart for asthma Advair 2020-0 2020- No 1{puff} Q12H inhale 1 [facility] Diskus 100 8-20 09-08 puff by [facility] [email or web address] 00:00: 00:00 inhalation mcg/dose 00 :00 route 2 powder for times inhalation every day in the morning and evening approximat jaya 12 hours apart for asthma Advair 2020-0 2020- No 1{puff} Q12H inhale 1 [facility] Diskus 100 8-20 09-08 puff by [facility] [email or web address] 00:00: 00:00 inhalation mcg/dose 00 :00 route 2 powder for times inhalation every day in the morning and evening approximat jaya 12 hours apart for asthma duloxetine 2020-0 2020- No 1{capsu Q1D take 1 A [facility] 60 mg 8-20 08-21 le} capsule by [facility] capsule,del 00:00: 00:00 oral route ayed 00 :00 every day release duloxetine 2020-0 2020- No 1{capsu Q1D take 1 A [facility] 60 mg 8-20 08-21 le} capsule by [facility] capsule,del 00:00: 00:00 oral route ayed 00 :00 every day release duloxetine 2020-0 2020- No 1{capsu Q1D take 1 A [facility] 60 mg 8-20 08-21 le} capsule by [facility] capsule,del 00:00: 00:00 oral route ayed 00 :00 every day release duloxetine 2020-0 2020- No 1{capsu Q1D take 1 A [facility] 60 mg 8-20 08-21 le} capsule by [facility] capsule,del 00:00: 00:00 oral route ayed 00 :00 every day release duloxetine 2020-0 2020- No 1{capsu Q1D take 1 A [facility] 60 mg 8-20 08-21 le} capsule by [facility] capsule,del 00:00: 00:00 oral route ayed 00 :00 every day release duloxetine 2020-0 2020- No 1{capsu Q1D take 1 A [facility] 60 mg 8-20 08-21 le} capsule by [facility] capsule,del 00:00: 00:00 oral route ayed 00 :00 every day release duloxetine 2020-0 2020- No 1{capsu Q1D take 1 A [facility] 60 mg 8-20 08-21 le} capsule by [facility] capsule,del 00:00: 00:00 oral route ayed 00 :00 every day release duloxetine 2020-0 2020- No 1{capsu Q1D take 1 A [facility] 60 mg 8-20 08-21 le} capsule by [facility] capsule,del 00:00: 00:00 oral route ayed 00 :00 every day release duloxetine 2020-0 2020- No 1{capsu Q1D take 1 A [facility] 60 mg 8-20 08-21 le} capsule by [facility] capsule,del 00:00: 00:00 oral route ayed 00 :00 every day release duloxetine 2020-0 2020- No 1{capsu Q1D take 1 A [facility] 60 mg 8-20 08-21 le} capsule by [facility] capsule,del 00:00: 00:00 oral route ayed 00 :00 every day release duloxetine 2020-0 2020- No 1{capsu Q1D take 1 A [facility] 60 mg 8-20 08-21 le} capsule by [facility] capsule,del 00:00: 00:00 oral route ayed 00 :00 every day release duloxetine 2020-0 2020- No 1{capsu Q1D take 1 A [facility] 60 mg 8-20 08-21 le} capsule by [facility] capsule,del 00:00: 00:00 oral route ayed 00 :00 every day release duloxetine 2020-0 2020- No 1{capsu Q1D take 1 A [facility] 60 mg 8-20 08-21 le} capsule by [facility] capsule,del 00:00: 00:00 oral route ayed 00 :00 every day release duloxetine 2020-0 2020- No 1{capsu Q1D take 1 A [facility] 60 mg 8-20 08-21 le} capsule by [facility] capsule,del 00:00: 00:00 oral route ayed 00 :00 every day release duloxetine 2020-0 2020- No 1{capsu Q1D take 1 A [facility] 60 mg 8-20 08-21 le} capsule by [facility] capsule,del 00:00: 00:00 oral route ayed 00 :00 every day release duloxetine 2020-0 2020- No 1{capsu Q1D take 1 A [facility] 60 mg 8-20 08-21 le} capsule by [facility] capsule,del 00:00: 00:00 oral route ayed 00 :00 every day release duloxetine 2020-0 2020- No 1{capsu Q1D take 1 A [facility] 60 mg 8-20 08-21 le} capsule by [facility] capsule,del 00:00: 00:00 oral route ayed 00 :00 every day release duloxetine 2020-0 2020- No 1{capsu Q1D take 1 A [facility]cess[facility] 60 mg 8-20 08-21 le} capsule by [facility] capsule,del 00:00: 00:00 oral route ayed 00 :00 every day release duloxetine 2020-0 2020- No 1{capsu Q1D take 1 A [facility]cess[facility] 60 mg 8-20 08-21 le} capsule by [facility] capsule,del 00:00: 00:00 oral route ayed 00 :00 every day release duloxetine 2020-0 2020- No 1{capsu Q1D take 1 A [facility]cess[facility] 60 mg 8-20 08-21 le} capsule by [facility] capsule,del 00:00: 00:00 oral route ayed 00 :00 every day release duloxetine 2020-0 2020- No 1{capsu Q1D take 1 A ccess[facility] 60 mg 8-20 08-21 le} capsule by [facility] capsule,del 00:00: 00:00 oral route ayed 00 :00 every day release duloxetine 2020-0 2020- No 1{capsu Q1D take 1 A ccess[facility] 60 mg 8-20 08-21 le} capsule by [facility] capsule,del 00:00: 00:00 oral route ayed 00 :00 every day release duloxetine 2020-0 2020- No 1{capsu Q1D take 1 A ccess[facility] 60 mg 8-20 08-21 le} capsule by [facility] capsule,del 00:00: 00:00 oral route ayed 00 :00 every day release duloxetine 2020-0 2020- No 1{capsu Q1D take 1 A ccess[facility] 60 mg 8-20 08-21 le} capsule by [facility] capsule,del 00:00: 00:00 oral route ayed 00 :00 every day release duloxetine 2020-0 2020- No 1{capsu Q1D take 1 A ccess[facility] 60 mg 8-20 08-21 le} capsule by [facility] capsule,del 00:00: 00:00 oral route ayed 00 :00 every day release duloxetine 2020-0 2020- No 1{capsu Q1D take 1 A ccess[facility] 60 mg 8-20 08-21 le} capsule by [facility] capsule,del 00:00: 00:00 oral route ayed 00 :00 every day release duloxetine 2020-0 2020- No 1{capsu Q1D take 1 A ccess[facility] 60 mg 8-20 08-21 le} capsule by [facility] capsule,del 00:00: 00:00 oral route ayed 00 :00 every day release duloxetine 2020-0 2020- No 1{capsu Q1D take 1 A ccess[facility] 60 mg 8-20 08-21 le} capsule by [facility] capsule,del 00:00: 00:00 oral route ayed 00 :00 every day release duloxetine 2020-0 2020- No 1{capsu Q1D take 1 A ccess[facility] 60 mg 8-20 08-21 le} capsule by [facility] capsule,del 00:00: 00:00 oral route ayed 00 :00 every day release duloxetine 2020-0 2020- No 1{capsu Q1D take 1 A ccess[facility] 60 mg 8-20 08-21 le} capsule by [facility] capsule,del 00:00: 00:00 oral route ayed 00 :00 every day release duloxetine 2020-0 2020- No 1{capsu Q1D take 1 A ccess[facility] 60 mg 8-20 08-21 le} capsule by [facility] capsule,del 00:00: 00:00 oral route ayed 00 :00 every day release duloxetine 2020-0 2020- No 1{capsu Q1D take 1 A ccess[facility] 60 mg 8-20 08-21 le} capsule by [facility] capsule,del 00:00: 00:00 oral route ayed 00 :00 every day release duloxetine 2020-0 2020- No 1{capsu Q1D take 1 A ccess[facility] 60 mg 8-20 08-21 le} capsule by [facility] capsule,del 00:00: 00:00 oral route ayed 00 :00 every day release duloxetine 2020-0 2020- No 1{capsu Q1D take 1 A ccess[facility] 60 mg 8-20 08-21 le} capsule by [facility] capsule,del 00:00: 00:00 oral route ayed 00 :00 every day release duloxetine 2020-0 2020- No 1{capsu Q1D take 1 A ccessH 60 mg 8-20 08-21 le} capsule by [facility] capsule,del 00:00: 00:00 oral route ayed 00 :00 every day release duloxetine 2020-0 2020- No 1{capsu Q1D take 1 A ccessH 60 mg 8-20 08-21 le} capsule by [facility] capsule,del 00:00: 00:00 oral route ayed 00 :00 every day release duloxetine 2020-0 2020- No 1{capsu Q1D take 1 A ccessH 60 mg 8-20 08-21 le} capsule by [facility] capsule,del 00:00: 00:00 oral route ayed 00 :00 every day release duloxetine 2020-0 2020- No 1{capsu Q1D take 1 A ccess[facility] 60 mg 8-20 08-21 le} capsule by [facility] capsule,del 00:00: 00:00 oral route ayed 00 :00 every day release sertraline 2020-0 2020- No 1{table Q12H take 1 A ccessH 100 mg 8-20 08-20 t} tablet by [facility] tablet 00:00: 00:00 oral route 00 :00 2 times every day sertraline 2020-0 2020- No 1{table Q12H take 1 A ccess[facility] 100 mg 8-20 08-20 t} tablet by [facility] tablet 00:00: 00:00 oral route 00 :00 2 times every day sertraline 2020-0 2020- No 1{table Q12H take 1 A ccess[facility] 100 mg 8-20 08-20 t} tablet by [facility] tablet 00:00: 00:00 oral route 00 :00 2 times every day sertraline 2020-0 2020- No 1{table Q12H take 1 A ccess[facility] 100 mg 8-20 08-20 t} tablet by [facility] tablet 00:00: 00:00 oral route 00 :00 2 times every day sertraline 2020-0 2020- No 1{table Q12H take 1 A ccessH 100 mg 8-20 08-20 t} tablet by [facility] tablet 00:00: 00:00 oral route 00 :00 2 times every day sertraline 2020-0 2020- No 1{table Q12H take 1 A ccessH 100 mg 8-20 08-20 t} tablet [facility] tablet 00:00: 00:00 oral route 00 :00 2 times every day sertraline 2020-0 2020- No 1{table Q12H take 1 A ccessH 100 mg 8-20 08-20 t} tablet [facility] tablet 00:00: 00:00 oral route 00 :00 2 times every day sertraline 2020-0 2020- No 1{table Q12H take 1 A ccessH 100 mg 8-20 08-20 t} tablet [facility] tablet 00:00: 00:00 oral route 00 :00 2 times every day sertraline 2020-0 2020- No 1{table Q12H take 1 A ccessH 100 mg 8-20 08-20 t} tablet [facility] tablet 00:00: 00:00 oral route 00 :00 2 times every day sertraline 2020-0 2020- No 1{table Q12H take 1 A ccessH 100 mg 8-20 08-20 t} tablet [facility] tablet 00:00: 00:00 oral route 00 :00 2 times every day sertraline 2020-0 2020- No 1{table Q12H take 1 A ccessH 100 mg 8-20 08-20 t} tablet [facility] tablet 00:00: 00:00 oral route 00 :00 2 times every day sertraline 2020-0 2020- No 1{table Q12H take 1 A ccessH 100 mg 8-20 08-20 t} tablet [facility] tablet 00:00: 00:00 oral route 00 :00 2 times every day sertraline 2020-0 2020- No 1{table Q12H take 1 A ccessH 100 mg 8-20 08-20 t} tablet [facility] 00:00: 00:00 oral route 00 :00 2 times every day sertraline 2020-0 2020- No 1{table Q12H take 1 A ccessH 100 mg 8-20 08-20 t} tablet [facility] 00:00: 00:00 oral route 00 :00 2 times every day sertraline 2020-0 2020- No 1{table Q12H take 1 A ccessH 100 mg 8-20 08-20 t} tablet [facility] 00:00: 00:00 oral route 00 :00 2 times every day sertraline 2020-0 2020- No 1{table Q12H take 1 A ccessH 100 mg 8-20 08-20 t} tablet [facility] 00:00: 00:00 oral route 00 :00 2 times every day sertraline 2020-0 2020- No 1{table Q12H take 1 A ccessH 100 mg 8-20 08-20 t} tablet [facility] 00:00: 00:00 oral route 00 :00 2 times every day sertraline 2020-0 2020- No 1{table Q12H take 1 A ccessH 100 mg 8-20 08-20 t} tablet [facility] 00:00: 00:00 oral route 00 :00 2 times every day sertraline 2020-0 2020- No 1{table Q12H take 1 A ccessH 100 mg 8-20 08-20 t} tablet [facility] 00:00: 00:00 oral route 00 :00 2 times every day sertraline 2020-0 2020- No 1{table Q12H take 1 A ccessH 100 mg 8-20 08-20 t} tablet [facility] 00:00: 00:00 oral route 00 :00 2 times every day sertraline 2020-0 2020- No 1{table Q12H take 1 A ccessH 100 mg 8-20 08-20 t} tablet [facility] 00:00: 00:00 oral route 00 :00 2 times every day sertraline 2020-0 2020- No 1{table Q12H take 1 A ccessH 100 mg 8-20 08-20 t} tablet [facility] 00:00: 00:00 oral route 00 :00 2 times every day sertraline 2020-0 2020- No 1{table Q12H take 1 A ccessH 100 mg 8-20 08-20 t} tablet [facility] 00:00: 00:00 oral route 00 :00 2 times every day sertraline 2020-0 2020- No 1{table Q12H take 1 A ccessH 100 mg 8-20 08-20 t} tablet [facility] 00:00: 00:00 oral route 00 :00 2 times every day sertraline 2020-0 2020- No 1{table Q12H take 1 A ccessH 100 mg 8-20 08-20 t} tablet [facility] 00:00: 00:00 oral route 00 :00 2 times every day sertraline 2020-0 2020- No 1{table Q12H take 1 A ccessH 100 mg 8-20 08-20 t} tablet [facility] 00:00: 00:00 oral route 00 :00 2 times every day sertraline 2020-0 2020- No 1{table Q12H take 1 A ccessH 100 mg 8-20 08-20 t} tablet [facility] 00:00: 00:00 oral route 00 :00 2 times every day sertraline 2020-0 2020- No 1{table Q12H take 1 A ccessH 100 mg 8-20 08-20 t} tablet [facility] 00:00: 00:00 oral route 00 :00 2 times every day sertraline 2020-0 2020- No 1{table Q12H take 1 A ccessH 100 mg 8-20 08-20 t} tablet [facility] 00:00: 00:00 oral route 00 :00 2 times every day sertraline 2020-0 2020- No 1{table Q12H take 1 A ccessH 100 mg 8-20 08-20 t} tablet [facility] 00:00: 00:00 oral route 00 :00 2 times every day sertraline 2020-0 2020- No 1{table Q12H take 1 A ccessH 100 mg 8-20 08-20 t} tablet [facility] 00:00: 00:00 oral route 00 :00 2 times every day sertraline 2020-0 2020- No 1{table Q12H take 1 A ccessH 100 mg 8-20 08-20 t} tablet [facility] 00:00: 00:00 oral route 00 :00 2 times every day sertraline 2020-0 2020- No 1{table Q12H take 1 A ccessH 100 mg 8-20 08-20 t} tablet [facility] 00:00: 00:00 oral route 00 :00 2 times every day sertraline 2020-0 2020- No 1{table Q12H take 1 A ccessH 100 mg 8-20 08-20 t} tablet [facility] 00:00: 00:00 oral route 00 :00 2 times every day sertraline 2020-0 2020- No 1{table Q12H take 1 A ccessH 100 mg 8-20 08-20 t} tablet [facility] 00:00: 00:00 oral route 00 :00 2 times every day sertraline 2020-0 2020- No 1{table Q12H take 1 A ccessH 100 mg 8-20 08-20 t} tablet [facility] 00:00: 00:00 oral route 00 :00 2 times every day sertraline 2020-0 2020- No 1{table Q12H take 1 A ccessH 100 mg 8-20 08-20 t} tablet [facility] 00:00: 00:00 oral route 00 :00 2 times every day sertraline 2020-0 2020- No 1{table Q12H take 1 A ccessH 100 mg 8-20 08-20 t} tablet [facility] 00:00: 00:00 oral route 00 :00 2 times every day sertraline 2020-0 2020- No 1{table Q12H take 1 A ccessH 100 mg 8-20 08-20 t} tablet [facility] 00:00: 00:00 oral route 00 :00 2 times every day sertraline 2020-0 2020- No 1{table Q12H take 1 A ccessH 100 mg 8-20 08-20 t} tablet [facility] 00:00: 00:00 oral route 00 :00 2 times every day sertraline 2020-0 2020- No 1{table Q12H take 1 A ccessH 100 mg 8-20 08-20 t} tablet [facility] 00:00: 00:00 oral route 00 :00 2 times every day sertraline 2020-0 2020- No 1{table Q12H take 1 A ccessH 100 mg 8-20 08-20 t} tablet [facility] 00:00: 00:00 oral route 00 :00 2 times every day sertraline 2020-0 2020- No 1{table Q12H take 1 A ccessH 100 mg 8-20 08-20 t} tablet [facility] 00:00: 00:00 oral route 00 :00 2 times every day sertraline 2020-0 2020- No 1{table Q12H take 1 A ccessH 100 mg 8-20 08-20 t} tablet [facility] 00:00: 00:00 oral route 00 :00 2 times every day sertraline 2020-0 2020- No 1{table Q12H take 1 A ccessH 100 mg 8-20 08-20 t} tablet [facility] 00:00: 00:00 oral route 00 :00 2 times every day sertraline 2020-0 2020- No 1{table Q12H take 1 A ccessH 100 mg 8-20 08-20 t} tablet [facility] 00:00: 00:00 oral route 00 :00 2 times every day sertraline 2020-0 2020- No 1{table Q12H take 1 A ccessH 100 mg 8-20 08-20 t} tablet [facility] 00:00: 00:00 oral route 00 :00 2 times every day sertraline 2020-0 2020- No 1{table Q12H take 1 A ccessH 100 mg 8-20 08-20 t} tablet [facility] 00:00: 00:00 oral route 00 :00 2 times every day sertraline 2020-0 2020- No 1{table Q12H take 1 A ccessH 100 mg 8-20 08-20 t} tablet [facility] 00:00: 00:00 oral route 00 :00 2 times every day sertraline 2020-0 2020- No 1{table Q12H take 1 A ccessH 100 mg 8-20 08-20 t} tablet [facility] 00:00: 00:00 oral route 00 :00 2 times every day sertraline 2020-0 2020- No 1{table Q12H take 1 A ccessH 100 mg 8-20 08-20 t} tablet [facility] 00:00: 00:00 oral route 00 :00 2 times every day sertraline 2020-0 2020- No 1{table Q12H take 1 A ccessH 100 mg 8-20 08-20 t} tablet [facility] 00:00: 00:00 oral route 00 :00 2 times every day sertraline 2020-0 2020- No 1{table Q12H take 1 A ccessH 100 mg 8-20 08-20 t} tablet [facility] 00:00: 00:00 oral route 00 :00 2 times every day sertraline 2020-0 2020- No 1{table Q12H take 1 A ccessH 100 mg 8-20 08-20 t} tablet [facility] 00:00: 00:00 oral route 00 :00 2 times every day sertraline 2020-0 2020- No 1{table Q12H take 1 A ccessH 100 mg 8-20 08-20 t} tablet [facility] 00:00: 00:00 oral route 00 :00 2 times every day sertraline 2020-0 2020- No 1{table Q12H take 1 A ccessH 100 mg 8-20 08-20 t} tablet [facility] 00:00: 00:00 oral route 00 :00 2 times every day sertraline 2020-0 2020- No 1{table Q12H take 1 A ccessH 100 mg 8-20 08-20 t} tablet [facility] 00:00: 00:00 oral route 00 :00 2 times every day sertraline 2020-0 2020- No 1{table Q12H take 1 A ccessH 100 mg 8-20 08-20 t} tablet [facility] 00:00: 00:00 oral route 00 :00 2 times every day sertraline 2020-0 2020- No 1{table Q12H take 1 A ccessH 100 mg 8-20 08-20 t} tablet [facility] 00:00: 00:00 oral route 00 :00 2 times every day sertraline 2020-0 2020- No 1{table Q12H take 1 A ccessH 100 mg 8-20 08-20 t} tablet [facility] 00:00: 00:00 oral route 00 :00 2 times every day sertraline 2020-0 2020- No 1{table Q12H take 1 A ccessH 100 mg 8-20 08-20 t} tablet [facility] 00:00: 00:00 oral route 00 :00 2 times every day sertraline 2020-0 2020- No 1{table Q12H take 1 A ccessH 100 mg 8-20 08-20 t} tablet [facility] 00:00: 00:00 oral route 00 :00 2 times every day sertraline 2020-0 2020- No 1{table Q12H take 1 A ccessH 100 mg 8-20 08-20 t} tablet [facility] 00:00: 00:00 oral route 00 :00 2 times every day sertraline 2020-0 2020- No 1{table Q12H take 1 A ccessH 100 mg 8-20 08-20 t} tablet [facility] 00:00: 00:00 oral route 00 :00 2 times every day sertraline 2020-0 2020- No 1{table Q12H take 1 A ccessH 100 mg 8-20 08-20 t} tablet [facility] 00:00: 00:00 oral route 00 :00 2 times every day sertraline 2020-0 2020- No 1{table Q12H take 1 A ccessH 100 mg 8-20 08-20 t} tablet [facility] 00:00: 00:00 oral route 00 :00 2 times every day sertraline 2020-0 2020- No 1{table Q12H take 1 A ccessH 100 mg 8-20 08-20 t} tablet [facility] 00:00: 00:00 oral route 00 :00 2 times every day sertraline 2020-0 2020- No 1{table Q12H take 1 A ccessH 100 mg 8-20 08-20 t} tablet [facility] 00:00: 00:00 oral route 00 :00 2 times every day sertraline 2020-0 2020- No 1{table Q12H take 1 A ccessH 100 mg 8-20 08-20 t} tablet [facility] 00:00: 00:00 oral route 00 :00 2 times every day sertraline 2020-0 2020- No 1{table Q12H take 1 A ccessH 100 mg 8-20 08-20 t} tablet [facility] 00:00: 00:00 oral route 00 :00 2 times every day sertraline 2020-0 2020- No 1{table Q12H take 1 A ccessH 100 mg 8-20 08-20 t} tablet [facility] 00:00: 00:00 oral route 00 :00 2 times every day sertraline 2020-0 2020- No 1{table Q12H take 1 A ccessH 100 mg 8-20 08-20 t} tablet [facility] 00:00: 00:00 oral route 00 :00 2 times every day sertraline 2020-0 2020- No 1{table Q12H take 1 A ccessH 100 mg 8-20 08-20 t} tablet [facility] 00:00: 00:00 oral route 00 :00 2 times every day sertraline 2020-0 2020- No 1{table Q12H take 1 A ccessH 100 mg 8-20 08-20 t} tablet [facility] 00:00: 00:00 oral route 00 :00 2 times every day sertraline 2020-0 2020- No 1{table Q12H take 1 A ccessH 100 mg 8-20 08-20 t} tablet [facility] 00:00: 00:00 oral route 00 :00 2 times every day sertraline 2020-0 2020- No 1{table Q12H take 1 A ccessH 100 mg 8-20 08-20 t} tablet [facility] 00:00: 00:00 oral route 00 :00 2 times every day SERTRALINE 2020-0 2020- No 1{table Q12H TAKE 1 A ccessH 100MG 8-07 08-20 t} TABLET BY [facility] TABLETS 00:00: 00:00 MOUTH 00 :00 TWICE DAILY SERTRALINE 2020-0 2020- No 1{table Q12H TAKE 1 A ccessH 100MG 8-07 08-20 t} TABLET BY [facility] TABLETS 00:00: 00:00 MOUTH 00 :00 TWICE DAILY SERTRALINE 2020-0 2020- No 1{table Q12H TAKE 1 A ccessH 100MG 8-07 08-20 t} TABLET BY [facility] TABLETS 00:00: 00:00 MOUTH 00 :00 TWICE DAILY SERTRALINE 2020-0 2020- No 1{table Q12H TAKE 1 A ccessH 100MG 8-07 08-20 t} TABLET BY [facility] TABLETS 00:00: 00:00 MOUTH 00 :00 TWICE DAILY SERTRALINE 2020-0 2020- No 1{table Q12H TAKE 1 A ccessH 100MG 8-07 08-20 t} TABLET BY [facility] TABLETS 00:00: 00:00 MOUTH 00 :00 TWICE DAILY SERTRALINE 2020-0 2020- No 1{table Q12H TAKE 1 A ccessH 100MG 8-07 08-20 t} TABLET BY [facility] TABLETS 00:00: 00:00 MOUTH 00 :00 TWICE DAILY SERTRALINE 2020-0 2020- No 1{table Q12H TAKE 1 A ccessH 100MG 8-07 08-20 t} TABLET BY [facility] TABLETS 00:00: 00:00 MOUTH 00 :00 TWICE DAILY SERTRALINE 2020-0 2020- No 1{table Q12H TAKE 1 A ccessH 100MG 8-07 08-20 t} TABLET BY [facility] TABLETS 00:00: 00:00 MOUTH 00 :00 TWICE DAILY SERTRALINE 2020-0 2020- No 1{table Q12H TAKE 1 A ccessH 100MG 8-07 08-20 t} TABLET BY [facility] TABLETS 00:00: 00:00 MOUTH 00 :00 TWICE DAILY SERTRALINE 2020-0 2020- No 1{table Q12H TAKE 1 A ccessH 100MG 8-07 08-20 t} TABLET BY [facility] TABLETS 00:00: 00:00 MOUTH 00 :00 TWICE DAILY SERTRALINE 2020-0 2020- No 1{table Q12H TAKE 1 A ccessH 100MG 8-07 08-20 t} TABLET BY [facility] TABLETS 00:00: 00:00 MOUTH 00 :00 TWICE DAILY SERTRALINE 2020-0 2020- No 1{table Q12H TAKE 1 A ccessH 100MG 8-07 08-20 t} TABLET BY [facility] TABLETS 00:00: 00:00 MOUTH 00 :00 TWICE DAILY SERTRALINE 2020-0 2020- No 1{table Q12H TAKE 1 A ccessH 100MG 8-07 08-20 t} TABLET BY [facility] TABLETS 00:00: 00:00 MOUTH 00 :00 TWICE DAILY SERTRALINE 2020-0 2020- No 1{table Q12H TAKE 1 A ccessH 100MG 8-07 08-20 t} TABLET BY [facility] TABLETS 00:00: 00:00 MOUTH 00 :00 TWICE DAILY SERTRALINE 2020-0 2020- No 1{table Q12H TAKE 1 A ccessH 100MG 8-07 08-20 t} TABLET BY [facility] TABLETS 00:00: 00:00 MOUTH 00 :00 TWICE DAILY SERTRALINE 2020-0 2020- No 1{table Q12H TAKE 1 A ccessH 100MG 8-07 08-20 t} TABLET BY [facility] TABLETS 00:00: 00:00 MOUTH 00 :00 TWICE DAILY SERTRALINE 2020-0 2020- No 1{table Q12H TAKE 1 A ccessH 100MG 8-07 08-20 t} TABLET BY [facility] TABLETS 00:00: 00:00 MOUTH 00 :00 TWICE DAILY SERTRALINE 2020-0 2020- No 1{table Q12H TAKE 1 A ccessH 100MG 8-07 08-20 t} TABLET BY [facility] TABLETS 00:00: 00:00 MOUTH 00 :00 TWICE DAILY SERTRALINE 2020-0 2020- No 1{table Q12H TAKE 1 A ccessH 100MG 8-07 08-20 t} TABLET BY [facility] TABLETS 00:00: 00:00 MOUTH 00 :00 TWICE DAILY SERTRALINE 2020-0 2020- No 1{table Q12H TAKE 1 A ccessH 100MG 8-07 08-20 t} TABLET BY [facility] TABLETS 00:00: 00:00 MOUTH 00 :00 TWICE DAILY SERTRALINE 2020-0 2020- No 1{table Q12H TAKE 1 A ccessH 100MG 8-07 08-20 t} TABLET BY [facility] TABLETS 00:00: 00:00 MOUTH 00 :00 TWICE DAILY SERTRALINE 2020-0 2020- No 1{table Q12H TAKE 1 A ccessH 100MG 8-07 08-20 t} TABLET BY [facility] TABLETS 00:00: 00:00 MOUTH 00 :00 TWICE DAILY SERTRALINE 2020-0 2020- No 1{table Q12H TAKE 1 A ccessH 100MG 8-07 08-20 t} TABLET BY [facility] TABLETS 00:00: 00:00 MOUTH 00 :00 TWICE DAILY SERTRALINE 2020-0 2020- No 1{table Q12H TAKE 1 A ccessH 100MG 8-07 08-20 t} TABLET [facility] TABLETS 00:00: 00:00 MOUTH 00 :00 TWICE DAILY SERTRALINE 2020-0 2020- No 1{table Q12H TAKE 1 A ccessH 100MG 8-07 08-20 t} TABLET [facility] TABLETS 00:00: 00:00 MOUTH 00 :00 TWICE DAILY SERTRALINE 2020-0 2020- No 1{table Q12H TAKE 1 A ccessH 100MG 8-07 08-20 t} TABLET [facility] TABLETS 00:00: 00:00 MOUTH 00 :00 TWICE DAILY SERTRALINE 2020-0 2020- No 1{table Q12H TAKE 1 A ccessH 100MG 8-07 08-20 t} TABLET BY [facility] TABLETS 00:00: 00:00 MOUTH 00 :00 TWICE DAILY SERTRALINE 2020-0 2020- No 1{table Q12H TAKE 1 A ccessH 100MG 8-07 08-20 t} TABLET [facility] TABLETS 00:00: 00:00 MOUTH 00 :00 TWICE DAILY SERTRALINE 2020-0 2020- No 1{table Q12H TAKE 1 A ccessH 100MG 8-07 08-20 t} TABLET [facility] TABLETS 00:00: 00:00 MOUTH 00 :00 TWICE DAILY SERTRALINE 2020-0 2020- No 1{table Q12H TAKE 1 A ccessH 100MG 8-07 08-20 t} TABLET BY [facility] TABLETS 00:00: 00:00 MOUTH 00 :00 TWICE DAILY SERTRALINE 2020-0 2020- No 1{table Q12H TAKE 1 A ccessH 100MG 8-07 08-20 t} TABLET BY [facility] TABLETS 00:00: 00:00 MOUTH 00 :00 TWICE DAILY SERTRALINE 2020-0 2020- No 1{table Q12H TAKE 1 A ccessH 100MG 8-07 08-20 t} TABLET BY [facility] TABLETS 00:00: 00:00 MOUTH 00 :00 TWICE DAILY SERTRALINE 2020-0 2020- No 1{table Q12H TAKE 1 A ccessH 100MG 8-07 08-20 t} TABLET BY [facility] TABLETS 00:00: 00:00 MOUTH 00 :00 TWICE DAILY SERTRALINE 2020-0 2020- No 1{table Q12H TAKE 1 A ccessH 100MG 8-07 08-20 t} TABLET BY [facility] TABLETS 00:00: 00:00 MOUTH 00 :00 TWICE DAILY SERTRALINE 2020-0 2020- No 1{table Q12H TAKE 1 A ccessH 100MG 8-07 08-20 t} TABLET BY [facility] TABLETS 00:00: 00:00 MOUTH 00 :00 TWICE DAILY SERTRALINE 2020-0 2020- No 1{table Q12H TAKE 1 A ccessH 100MG 8-07 08-20 t} TABLET BY [facility] TABLETS 00:00: 00:00 MOUTH 00 :00 TWICE DAILY SERTRALINE 2020-0 2020- No 1{table Q12H TAKE 1 A ccessH 100MG 8-07 08-20 t} TABLET [facility] TABLETS 00:00: 00:00 MOUTH 00 :00 TWICE DAILY SERTRALINE 2020-0 2020- No 1{table Q12H TAKE 1 A ccessH 100MG 8-07 08-20 t} TABLET [facility] TABLE[facility] 00:00: 00:00 MOUTH 00 :00 TWICE DAILY TIZANIDINE 2020-0 No TAKE 1 [facility] 4MG TABLETS 7-20 TABLET BY [facility] 00:00: MOUTH 00 EVERY 6 TO 8 HOURS NEEDED. NOT TO EXCEED 3 DOSES IN 24 HOURS TIZANIDINE 2020-0 No TAKE 1 Acces sH 4MG TABLETS 7-20 TABLET BY [facility] 00:00: MOUTH 00 EVERY 6 TO 8 HOURS NEEDED. NOT TO EXCEED 3 DOSES IN 24 HOURS TIZANIDINE 2020-0 No TAKE 1 Acces sH 4MG TABLETS 7-20 TABLET BY [facility] 00:00: MOUTH 00 EVERY 6 TO 8 HOURS NEEDED. NOT TO EXCEED 3 DOSES IN 24 HOURS TIZANIDINE No TAKE 1 Acces sH 4MG TABLETS 7-20 TABLET BY [facility] 00:00: MOUTH 00 EVERY 6 TO 8 HOURS NEEDED. NOT TO EXCEED 3 DOSES IN 24 HOURS TIZANIDINE No TAKE 1 Acces sH 4MG TABLETS 7-20 TABLET BY [facility] 00:00: MOUTH 00 EVERY 6 TO 8 HOURS NEEDED. NOT TO EXCEED 3 DOSES IN 24 HOURS TIZANIDINE No TAKE 1 Acces sH 4MG TABLETS 7-20 TABLET BY [facility] 00:00: MOUTH 00 EVERY 6 TO 8 HOURS NEEDED. NOT TO EXCEED 3 DOSES IN 24 HOURS TIZANIDINE No TAKE 1 Acces sH 4MG TABLETS 7-20 TABLET BY [facility] 00:00: MOUTH 00 EVERY 6 TO 8 HOURS NEEDED. NOT TO EXCEED 3 DOSES IN 24 HOURS TIZANIDINE No TAKE 1 Acces sH 4MG TABLETS 7-20 TABLET BY [facility] 00:00: MOUTH 00 EVERY 6 TO 8 HOURS NEEDED. NOT TO EXCEED 3 DOSES IN 24 HOURS TIZANIDINE No TAKE 1 Acces sH 4MG TABLETS 7-20 TABLET BY [facility] 00:00: MOUTH 00 EVERY 6 TO 8 HOURS NEEDED. NOT TO EXCEED 3 DOSES IN 24 HOURS TIZANIDINE 2019- No TAKE 1 [facility] 4MG TABLETS 7-20 -22 TABLET BY [facility] 00:00: 00:00 MOUTH 00 :00 EVERY 6 TO 8 HOURS NEEDED. NOT TO EXCEED 3 DOSES IN 24 HOURS TIZANIDINE 2019- No TAKE 1 [facility] ssH 4MG TABLETS 7-20 -22 TABLET BY [facility] 00:00: 00:00 MOUTH 00 :00 EVERY 6 TO 8 HOURS NEEDED. NOT TO EXCEED 3 DOSES IN 24 HOURS TIZANIDINE 2019- No TAKE 1 [facility] ssH 4MG TABLETS 7-20 -22 TABLET BY [facility] 00:00: 00:00 MOUTH 00 :00 EVERY 6 TO 8 HOURS NEEDED. NOT TO EXCEED 3 DOSES IN 24 HOURS TIZANIDINE 2019- No TAKE 1 [facility] ss[facility] 4MG TABLETS 7-20 -22 TABLET BY [facility] 00:00: 00:00 MOUTH 00 :00 EVERY 6 TO 8 HOURS NEEDED. NOT TO EXCEED 3 DOSES IN 24 HOURS TIZANIDINE 2019- No TAKE 1 [facility] ss[facility] 4MG TABLETS 707-07 TABLET BY [facility] 00:00: 00:00 MOUTH 00 :00 EVERY 6 TO 8 HOURS NEEDED. NOT TO EXCEED 3 DOSES IN 24 HOURS TIZANIDINE 2019- No TAKE 1 [facility] 4MG TABLETS 707-07 TABLET BY [facility] 00:00: 00:00 MOUTH 00 :00 EVERY 6 TO 8 HOURS NEEDED. NOT TO EXCEED 3 DOSES IN 24 HOURS TIZANIDINE No TAKE 1 [facility] 4MG TABLETS 05-04 TABLET BY [facility] 00:00: 00:00 MOUTH 00 :00 EVERY 6 TO 8 HOURS NEEDED. NOT TO EXCEED 3 DOSES IN 24 HOURS TIZANIDINE No TAKE 1 [facility] 4MG TABLETS 05-04 TABLET BY [facility] 00:00: 00:00 MOUTH 00 :00 EVERY 6 TO 8 HOURS NEEDED. NOT TO EXCEED 3 DOSES IN 24 HOURS TIZANIDINE No TAKE 1 [facility] 4MG TABLETS 05-04 TABLET BY [facility] 00:00: 00:00 MOUTH 00 :00 EVERY 6 TO 8 HOURS NEEDED. NOT TO EXCEED 3 DOSES IN 24 HOURS TIZANIDINE 2019- No TAKE 1 [facility] 4MG TABLETS 707-07 TABLET BY [facility] 00:00: 00:00 MOUTH 00 :00 EVERY 6 TO 8 HOURS NEEDED. NOT TO EXCEED 3 DOSES IN 24 HOURS TIZANIDINE No TAKE 1 [facility] 4MG TABLETS 7-07-07 TABLET BY [facility] 00:00: 00:00 MOUTH 00 :00 EVERY 6 TO 8 HOURS NEEDED. NOT TO EXCEED 3 DOSES IN 24 HOURS TIZANIDINE 2019- No TAKE 1 [facility] 4MG TABLETS 7-05 07- TABLET BY [facility] 00:00: 00:00 MOUTH 00 :00 EVERY 6 TO 8 HOURS NEEDED. NOT TO EXCEED 3 DOSES IN 24 HOURS TIZANIDINE 2019- No TAKE 1 [facility] 4MG TABLETS 7-07-07 TABLET BY [facility] 00:00: 00:00 MOUTH 00 :00 EVERY 6 TO 8 HOURS NEEDED. NOT TO EXCEED 3 DOSES IN 24 HOURS TIZANIDINE 2019- No TAKE 1 [facility] 4MG TABLETS 7-07-07 TABLET BY [facility] 00:00: 00:00 MOUTH 00 :00 EVERY 6 TO 8 HOURS NEEDED. NOT TO EXCEED 3 DOSES IN 24 HOURS TIZANIDINE 2019- No TAKE 1 [facility] 4MG TABLETS 707-07 TABLET BY [facility] 00:00: 00:00 MOUTH 00 :00 EVERY 6 TO 8 HOURS NEEDED. NOT TO EXCEED 3 DOSES IN 24 HOURS TIZANIDINE 2019- No TAKE 1 [facility] 4MG TABLETS 05-04 TABLET BY [facility] 00:00: 00:00 MOUTH 00 :00 EVERY 6 TO 8 HOURS NEEDED. NOT TO EXCEED 3 DOSES IN 24 HOURS TIZANIDINE 2019- No TAKE 1 [facility] 4MG TABLETS 05-04 TABLET BY [facility] 00:00: 00:00 MOUTH 00 :00 EVERY 6 TO 8 HOURS NEEDED. NOT TO EXCEED 3 DOSES IN 24 HOURS TIZANIDINE 2019- No TAKE 1 [facility] 4MG TABLETS 05-04 TABLET BY [facility] 00:00: 00:00 MOUTH 00 :00 EVERY 6 TO 8 HOURS NEEDED. NOT TO EXCEED 3 DOSES IN 24 HOURS TIZANIDINE 2019- No TAKE 1 [facility] 4MG TABLETS 05-04 TABLET BY [facility] 00:00: 00:00 MOUTH 00 :00 EVERY 6 TO 8 HOURS NEEDED. NOT TO EXCEED 3 DOSES IN 24 HOURS TIZANIDINE 2019- No TAKE 1 [facility] 4MG TABLETS 7-05 07- TABLET BY [facility] 00:00: 00:00 MOUTH 00 :00 EVERY 6 TO 8 HOURS NEEDED. NOT TO EXCEED 3 DOSES IN 24 HOURS TIZANIDINE 2019- No TAKE 1 [facility] 4MG TABLETS 7-07-07 TABLET BY [facility] 00:00: 00:00 MOUTH 00 :00 EVERY 6 TO 8 HOURS NEEDED. NOT TO EXCEED 3 DOSES IN 24 HOURS TIZANIDINE 2019- No TAKE 1 [facility] 4MG TABLETS 7-20 -22 TABLET BY [facility] 00:00: 00:00 MOUTH 00 :00 EVERY 6 TO 8 HOURS NEEDED. NOT TO EXCEED 3 DOSES IN 24 HOURS TIZANIDINE 2019- No TAKE 1 [facility] 4MG TABLETS 05-04 TABLET BY [facility] 00:00: 00:00 MOUTH 00 :00 EVERY 6 TO 8 HOURS NEEDED. NOT TO EXCEED 3 DOSES IN 24 HOURS TIZANIDINE 2019- No TAKE 1 [facility] 4MG TABLETS 05-04 TABLET BY [facility] 00:00: 00:00 MOUTH 00 :00 EVERY 6 TO 8 HOURS NEEDED. NOT TO EXCEED 3 DOSES IN 24 HOURS TIZANIDINE No TAKE 1 [facility] 4MG TABLETS 05-04 TABLET [facility] 00:00: 00:00 MOUTH 00 :00 EVERY 6 TO 8 HOURS NEEDED. NOT TO EXCEED 3 DOSES IN 24 HOURS TIZANIDINE No TAKE 1 [facility] 4MG TABLETS 05-04 TABLET [facility] 00:00: 00:00 MOUTH 00 :00 EVERY 6 TO 8 HOURS NEEDED. NOT TO EXCEED 3 DOSES IN 24 HOURS TIZANIDINE No TAKE 1 [facility] 4MG TABLETS 05-04 TABLET BY [facility] 00:00: 00:00 MOUTH 00 :00 EVERY 6 TO 8 HOURS NEEDED. NOT TO EXCEED 3 DOSES IN 24 HOURS TIZANIDINE No TAKE 1 [facility] 4MG TABLETS 05-04 TABLET BY [facility] 00:00: 00:00 MOUTH 00 :00 EVERY 6 TO 8 HOURS NEEDED. NOT TO EXCEED 3 DOSES IN 24 HOURS TIZANIDINE No TAKE 1 [facility] 4MG TABLETS 05-04 TABLET BY [facility] 00:00: 00:00 MOUTH 00 :00 EVERY 6 TO 8 HOURS NEEDED. NOT TO EXCEED 3 DOSES IN 24 HOURS Flonase No 1{spray QD spray 1 - [facility] All[facility] 04-21 } 2 spray by [facility] Relief 50 00:00: intranasal mcg/actuati 00 route on nasal every day spray,suspe in each nsion nostril as needed as needed Flonase No 1{spray QD spray 1 - med [facility] Allergy 7-07 } 2 spray by refill [facility] Relief 50 00:00: intranasal mcg/actuati 00 route on nasal every day spray,suspe in each nsion nostril as needed as needed Flonase No 1{spray QD spray 1 - [facility] Allergy 7-07 } 2 spray by refill [facility] Relief 50 00:00: intranasal mcg/actuati 00 route on nasal every day spray,suspe in each nsion nostril as needed as needed Flonase No 1{spray QD spray 1 - [facility] All[facility] 7-07 } 2 spray by refill [facility] Relief 50 00:00: intranasal mcg/actuati 00 route on nasal every day spray,suspe in each nsion nostril as needed as needed Flonase No 1{spray QD spray 1 - [facility] Allergy 7-07 } 2 spray by refill [facility] Relief 50 00:00: intranasal mcg/actuati 00 route on nasal every day spray,suspe in each nsion nostril as needed as needed Flonase No 1{spray QD spray 1 - [facility] All[facility] 7-07 } 2 spray by ref[facility] Relief 50 00:00: intranasal mcg/actuati 00 route on nasal every day spray,suspe in each nsion nostril as needed as needed Flonase No 1{spray QD spray 1 - [facility] All[facility] 7-07 } 2 spray by ref[facility] Relief 50 00:00: intranasal mcg/actuati 00 route on nasal every day spray,suspe in each nsion nostril as needed as needed Flonase No 1{spray QD spray 1 - med [facility] Allergy 7-07 } 2 spray by ref[facility] Relief 50 00:00: intranasal mcg/actuati 00 route on nasal every day spray,suspe in each nsion nostril as needed as needed Flonase No 1{spray QD spray 1 - [facility] Allergy 7-07 } 2 spray by refill [facility] Relief 50 00:00: intranasal mcg/actuati 00 route on nasal every day spray,suspe in each nsion nostril as needed as needed Flonase No 1{spray QD spray 1 - med [facility] Allergy 7-07 } 2 spray by refill ealt h Relief 50 00:00: intranasal mcg/actuati 00 route on nasal every day spray,suspe in each nsion nostril as needed as needed Flonase No 1{spray QD spray 1 - med Ac [facility] Allergy 7-07 } 2 spray by refill ealt h Relief 50 00:00: intranasal mcg/actuati 00 route on nasal every day spray,suspe in each nsion nostril as needed as needed Flonase No 1{spray QD spray 1 - med Ac cess[facility] Allergy 7-07 } 2 spray by refill ealt h Relief 50 00:00: intranasal mcg/actuati 00 route on nasal every day spray,suspe in each nsion nostril as needed as needed Flonase No 1{spray QD spray 1 - med Ac [facility] Allergy 7-07 } 2 spray by refill ealt h Relief 50 00:00: intranasal mcg/actuati 00 route on nasal every day spray,suspe in each nsion nostril as needed as needed Flonase No 1{spray QD spray 1 - med Ac cess[facility] Allergy 7-07 } 2 spray by refill ealt h Relief 50 00:00: intranasal mcg/actuati 00 route on nasal every day spray,suspe in each nsion nostril as needed as needed Flonase No 1{spray QD spray 1 - med Ac [facility] Allergy 7-07 } 2 spray by refill ealt h Relief 50 00:00: intranasal mcg/actuati 00 route on nasal every day spray,suspe in each nsion nostril as needed as needed Flonase No 1{spray QD spray 1 - med Ac cess[facility] Allergy 7-07 } 2 spray by refill ealt h Relief 50 00:00: intranasal mcg/actuati 00 route on nasal every day spray,suspe in each nsion nostril as needed as needed Flonase No 1{spray QD spray 1 - med Ac cess[facility] Allergy 7-07 } 2 spray by refill ealt h Relief 50 00:00: intranasal mcg/actuati 00 route on nasal every day spray,suspe in each nsion nostril as needed as needed Flonase 2019- 2020- No 1{spray QD spray 1 - med A [facility]cess[facility] Allergy 04-21 } 2 spray by refill eal th Relief 50 00:00: 00:00 intranasal mcg/actuati 00 :00 route on nasal every day spray,suspe in each nsion nostril as needed as needed Flonase 2019- 2020- No 1{spray QD spray 1 - med A [facility]cess[facility] Allergy 04-21 } 2 spray by refill eal th Relief 50 00:00: 00:00 intranasal mcg/actuati 00 :00 route on nasal every day spray,suspe in each nsion nostril as needed as needed Flonase 2020- No 1{spray QD spray 1 - med A [facility]cess[facility] Allergy 04-21 } 2 spray by refill eal th Relief 50 00:00: 00:00 intranasal mcg/actuati 00 :00 route on nasal every day spray,suspe in each nsion nostril as needed as needed Flonase 2019- 2020- No 1{spray QD spray 1 - med A [facility]cess[facility] Allergy 04-21 } 2 spray by refill eal th Relief 50 00:00: 00:00 intranasal mcg/actuati 00 :00 route on nasal every day spray,suspe in each nsion nostril as needed as needed Flonase 2019- 2020- No 1{spray QD spray 1 - med A ccess[facility] Allergy 04-21 } 2 spray by refill eal th Relief 50 00:00: 00:00 intranasal mcg/actuati 00 :00 route on nasal every day spray,suspe in each nsion nostril as needed as needed Flonase 2020- 2020- No 1{spray QD spray 1 - med A [facility]cess[facility] Allergy 04-21 } 2 spray by refill eal th Relief 50 00:00: 00:00 intranasal mcg/actuati 00 :00 route on nasal every day spray,suspe in each nsion nostril as needed as needed Flonase 2019- 2020- No 1{spray QD spray 1 - med A ccess[facility] Allergy 04-21 } 2 spray by refill eal th Relief 50 00:00: 00:00 intranasal mcg/actuati 00 :00 route on nasal every day spray,suspe in each nsion nostril as needed as needed Flonase 2019- 2020- No 1{spray QD spray 1 - med A ccess[facility] Allergy 04-21 } 2 spray by refill eal th Relief 50 00:00: 00:00 intranasal mcg/actuati 00 :00 route on nasal every day spray,suspe in each nsion nostril as needed as needed Flonase 2019- 2020- No 1{spray QD spray 1 - med A [facility]cess[facility] Allergy 04-21 } 2 spray by refill eal th Relief 50 00:00: 00:00 intranasal mcg/actuati 00 :00 route on nasal every day spray,suspe in each nsion nostril as needed as needed Flonase 2020- No 1{spray QD spray 1 - med A [facility]cess[facility] Allergy 04-21 } 2 spray by refill eal th Relief 50 00:00: 00:00 intranasal mcg/actuati 00 :00 route on nasal every day spray,suspe in each nsion nostril as needed as needed Flonase 2019- 2020- No 1{spray QD spray 1 - med A [facility]cess[facility] Allergy 04-21 } 2 spray by refill eal th Relief 50 00:00: 00:00 intranasal mcg/actuati 00 :00 route on nasal every day spray,suspe in each nsion nostril as needed as needed Flonase 2020- 2020- No 1{spray QD spray 1 - med A [facility]cess[facility] Allergy 04-21 } 2 spray by refill eal th Relief 50 00:00: 00:00 intranasal mcg/actuati 00 :00 route on nasal every day spray,suspe in each nsion nostril as needed as needed Flonase 2019- 2020- No 1{spray QD spray 1 - med A [facility]cess[facility] Allergy 04-21 } 2 spray by refill eal th Relief 50 00:00: 00:00 intranasal mcg/actuati 00 :00 route on nasal every day spray,suspe in each nsion nostril as needed as needed Flonase 2020- No 1{spray QD spray 1 - med A [facility]cess[facility] Allergy 04-21 } 2 spray by refill eal th Relief 50 00:00: 00:00 intranasal mcg/actuati 00 :00 route on nasal every day spray,suspe in each nsion nostril as needed as needed Flonase 2019- 2020- No 1{spray QD spray 1 - med A [facility]cess[facility] Allergy 04-21 } 2 spray by refill eal th Relief 50 00:00: 00:00 intranasal mcg/actuati 00 :00 route on nasal every day spray,suspe in each nsion nostril as needed as needed Flonase 2020- 2020- No 1{spray QD spray 1 - med A [facility]cess[facility] Allergy 04-21 } 2 spray by refill eal th Relief 50 00:00: 00:00 intranasal mcg/actuati 00 :00 route on nasal every day spray,suspe in each nsion nostril as needed as needed Flonase 2019- 2020- No 1{spray QD spray 1 - med A [facility]cess[facility] Allergy 04-21 } 2 spray by refill eal th Relief 50 00:00: 00:00 intranasal mcg/actuati 00 :00 route on nasal every day spray,suspe in each nsion nostril as needed as needed Flonase 2020- 2020- No 1{spray QD spray 1 - med A [facility]cess[facility] Allergy 04-21 } 2 spray by refill eal th Relief 50 00:00: 00:00 intranasal mcg/actuati 00 :00 route on nasal every day spray,suspe in each nsion nostril as needed as needed Flonase 2020- 2020- No 1{spray QD spray 1 - med A [facility]cess[facility] Allergy 04-21 } 2 spray by refill eal th Relief 50 00:00: 00:00 intranasal mcg/actuati 00 :00 route on nasal every day spray,suspe in each nsion nostril as needed as needed Flonase 2020- 2020- No 1{spray QD spray 1 - med A [facility]cess[facility] Allergy 04-21 } 2 spray by refill eal th Relief 50 00:00: 00:00 intranasal mcg/actuati 00 :00 route on nasal every day spray,suspe in each nsion nostril as needed as needed Flonase 2019- 2020- No 1{spray QD spray 1 - med [facility] 04-21- } [facility] m[facility]/actuati 00 :00 route on nasal every day spray,suspe in each nsion nostril as needed as needed Klonopin 1 2019- 2020- No 1{table TID take 1 A ccess[facility] mg tablet 6-30 08-20 t} tablet by ealt h 00:00: 00:00 oral route 00 :00 3 times every day as needed for anxiety Klonopin 1 2019- 2020- No 1{table TID take 1 A ccess[facility] mg tablet 6-30 08-20 t} tablet by ealt h 00:00: 00:00 oral route 00 :00 3 times every day as needed for anxiety Klonopin 1 2019- 2020- No 1{table TID take 1 A ccess[facility] mg tablet 6-30 08-20 t} tablet by ealt h 00:00: 00:00 oral route 00 :00 3 times every day as needed for anxiety Klonopin 1 2019- 2020- No 1{table TID take 1 A ccess[facility] mg tablet 6-30 08-20 t} tablet by ealt h 00:00: 00:00 oral route 00 :00 3 times every day as needed for anxiety Klonopin 1 2019- 2020- No 1{table TID take 1 A ccess[facility] mg tablet 6-30 08-20 t} tablet by ealt h 00:00: 00:00 oral route 00 :00 3 times every day as needed for anxiety Klonopin 1 2019- 2020- No 1{table TID take 1 A ccess[facility] mg tablet 6-30 08-20 t} tablet by ealt h 00:00: 00:00 oral route 00 :00 3 times every day as needed for anxiety Klonopin 1 2019-0 2020- No 1{table TID take 1 A ccess[facility] mg tablet 6-30 08-20 t} tablet by ealt h 00:00: 00:00 oral route 00 :00 3 times every day as needed for anxiety Klonopin 1 2019-0 2020- No 1{table TID take 1 A ccess[facility] mg tablet 6-30 08-20 t} tablet by ealt h 00:00: 00:00 oral route 00 :00 3 times every day as needed for anxiety Klonopin 1 2020-0 2020- No 1{table TID take 1 A ccess[facility] mg tablet 6-30 08-20 t} tablet by ealt h 00:00: 00:00 oral route 00 :00 3 times every day as needed for anxiety Klonopin 1 2020-0 2020- No 1{table TID take 1 A ccess[facility] mg tablet 6-30 08-20 t} tablet by ealt h 00:00: 00:00 oral route 00 :00 3 times every day as needed for anxiety Klonopin 1 2020-0 2020- No 1{table TID take 1 A ccess[facility] mg tablet 6-30 08-20 t} tablet by ealt h 00:00: 00:00 oral route 00 :00 3 times every day as needed for anxiety Klonopin 1 2020-0 2020- No 1{table TID take 1 A ccess[facility] mg tablet 6-30 08-20 t} tablet by ealt h 00:00: 00:00 oral route 00 :00 3 times every day as needed for anxiety Klonopin 1 2020-0 2020- No 1{table TID take 1 A ccess[facility] mg tablet 6-30 08-20 t} tablet by ealt h 00:00: 00:00 oral route 00 :00 3 times every day as needed for anxiety Klonopin 1 2020-0 2020- No 1{table TID take 1 A ccess[facility] mg tablet 6-30 08-20 t} tablet by ealt h 00:00: 00:00 oral route 00 :00 3 times every day as needed for anxiety Klonopin 1 2020-0 2020- No 1{table TID take 1 A ccess[facility] mg tablet 6-30 08-20 t} tablet by ealt h 00:00: 00:00 oral route 00 :00 3 times every day as needed for anxiety Klonopin 1 2020-0 2020- No 1{table TID take 1 A ccess[facility] mg tablet 6-30 08-20 t} tablet by ealt h 00:00: 00:00 oral route 00 :00 3 times every day as needed for anxiety Klonopin 1 2020-0 2020- No 1{table TID take 1 A ccess[facility] mg tablet 6-30 08-20 t} tablet by ealt h 00:00: 00:00 oral route 00 :00 3 times every day as needed for anxiety Klonopin 1 2020-0 2020- No 1{table TID take 1 A ccess[facility] mg tablet 6-30 08-20 t} tablet by ealt h 00:00: 00:00 oral route 00 :00 3 times every day as needed for anxiety Klonopin 1 2020-0 2020- No 1{table TID take 1 A ccess[facility] mg tablet 6-30 08-20 t} tablet by ealt h 00:00: 00:00 oral route 00 :00 3 times every day as needed for anxiety Klonopin 1 2020-0 2020- No 1{table TID take 1 A ccess[facility] mg tablet 6-30 08-20 t} tablet by ealt h 00:00: 00:00 oral route 00 :00 3 times every day as needed for anxiety Klonopin 1 2020-0 2020- No 1{table TID take 1 A ccess[facility] mg tablet 6-30 08-20 t} tablet by ealt h 00:00: 00:00 oral route 00 :00 3 times every day as needed for anxiety Klonopin 1 2020-0 2020- No 1{table TID take 1 A ccess[facility] mg tablet 6-30 08-20 t} tablet by ealt h 00:00: 00:00 oral route 00 :00 3 times every day as needed for anxiety Klonopin 1 2020-0 2020- No 1{table TID take 1 A ccess[facility] mg tablet 6-30 08-20 t} tablet by ealt h 00:00: 00:00 oral route 00 :00 3 times every day as needed for anxiety Klonopin 1 2020-0 2020- No 1{table TID take 1 A ccess[facility] mg tablet 6-30 08-20 t} tablet by ealt h 00:00: 00:00 oral route 00 :00 3 times every day as needed for anxiety Klonopin 1 2020-0 2020- No 1{table TID take 1 A ccess[facility] mg tablet 6-30 08-20 t} tablet by ealt h 00:00: 00:00 oral route 00 :00 3 times every day as needed for anxiety Klonopin 1 2020-0 2020- No 1{table TID take 1 A ccess[facility] mg tablet 6-30 08-20 t} tablet by ealt h 00:00: 00:00 oral route 00 :00 3 times every day as needed for anxiety Klonopin 1 2020-0 2020- No 1{table TID take 1 A ccess[facility] mg tablet 6-30 08-20 t} tablet by ealt h 00:00: 00:00 oral route 00 :00 3 times every day as needed for anxiety Klonopin 1 2020-0 2020- No 1{table TID take 1 A ccess[facility] mg tablet 6-30 08-20 t} tablet by ealt h 00:00: 00:00 oral route 00 :00 3 times every day as needed for anxiety Klonopin 1 2020-0 2020- No 1{table TID take 1 A ccess[facility] mg tablet 6-30 08-20 t} tablet by ealt h 00:00: 00:00 oral route 00 :00 3 times every day as needed for anxiety Klonopin 1 2020-0 2020- No 1{table TID take 1 A ccess[facility] mg tablet 6-30 08-20 t} tablet by ealt h 00:00: 00:00 oral route 00 :00 3 times every day as needed for anxiety Klonopin 1 2020-0 2020- No 1{table TID take 1 A ccess[facility] mg tablet 6-30 08-20 t} tablet by ealt h 00:00: 00:00 oral route 00 :00 3 times every day as needed for anxiety Klonopin 1 2020-0 2020- No 1{table TID take 1 A ccess[facility] mg tablet 6-30 08-20 t} tablet by ealt h 00:00: 00:00 oral route 00 :00 3 times every day as needed for anxiety Klonopin 1 2020-0 2020- No 1{table TID take 1 A ccess[facility] mg tablet 6-30 08-20 t} tablet by ealt h 00:00: 00:00 oral route 00 :00 3 times every day as needed for anxiety Klonopin 1 2020-0 2020- No 1{table TID take 1 A ccess[facility] mg tablet 6-30 08-20 t} tablet by ealt h 00:00: 00:00 oral route 00 :00 3 times every day as needed for anxiety Klonopin 1 2020-0 2020- No 1{table TID take 1 A ccess[facility] mg tablet 6-30 08-20 t} tablet by ealt h 00:00: 00:00 oral route 00 :00 3 times every day as needed for anxiety Klonopin 1 2020-0 2020- No 1{table TID take 1 A ccess[facility] mg tablet 6-30 08-20 t} tablet by ealt h 00:00: 00:00 oral route 00 :00 3 times every day as needed for anxiety Klonopin 1 2020-0 2020- No 1{table TID take 1 A ccess[facility] mg tablet 6-30 08-20 t} tablet by ealt h 00:00: 00:00 oral route 00 :00 3 times every day as needed for anxiety Klonopin 1 2020-0 2020- No 1{table TID take 1 A ccess[facility] mg tablet 6-30 08-20 t} tablet by ealt h 00:00: 00:00 oral route 00 :00 3 times every day as needed for anxiety butalbital- 2019-0 No 1{capsu 6xD take 1 - 2 0 [facility] acetaminoph 6-23 le} capsule by Pt needs ealth en-caffeine 00:00: oral route apt for 50 mg-325 00 every 4 further mg-40 mg hours as fills, capsule needed not --AG,RN to exceed 6 capsules per 24hrs as needed butalbital- 0 No 1{capsu 6xD take 1 - 2 0 [facility] acetaminoph 6-23 le} capsule by Pt needs ealth en-caffeine 00:00: oral route apt for 50 mg-325 00 every 4 further mg-40 mg hours as fills, capsule needed not --AG,RN to exceed 6 capsules per 24hrs as needed butalbital- 0 No 1{capsu 6xD take 1 - 2 0 [facility] acetaminoph 6-23 le} capsule by Pt needs ealth en-caffeine 00:00: oral route apt for 50 mg-325 00 every 4 further mg-40 mg hours as fills, capsule needed not --AG,RN to exceed 6 capsules per 24hrs as needed butalbital- 0 No 1{capsu 6xD take 1 - 2 0 [facility] acetaminoph 6-23 le} capsule by Pt needs ealth en-caffeine 00:00: oral route apt for 50 mg-325 00 every 4 further mg-40 mg hours as fills, capsule needed not --AG,RN to exceed 6 capsules per 24hrs as needed butalbital- No 1{capsu 6xD take 1 - 2 0 [facility] acetaminoph 6-23 le} capsule by Pt needs ealth en-caffeine 00:00: oral route apt for 50 mg-325 00 every 4 further mg-40 mg hours as fills, capsule needed not --AG,RN to exceed 6 capsules per 24hrs as needed butalbital- No 1{capsu 6xD take 1 - 2 0 [facility] acetaminoph 6-23 le} capsule by Pt needs ealth en-caffeine 00:00: oral route apt for 50 mg-325 00 every 4 further mg-40 mg hours as fills, capsule needed not --AG,RN to exceed 6 capsules per 24hrs as needed butalbital No 1{capsu 6xD take 1 - 2 0 [facility] acetaminoph 6-23 le} capsule by Pt needs ealth en-caffeine 00:00: oral route apt for 50 mg-325 00 every 4 further mg-40 mg hours as fills, capsule needed not --AG,RN to exceed 6 capsules per 24hrs as needed butalbital No 1{capsu 6xD take 1 - 2 0 [facility] acetaminoph 6-23 le} capsule by Pt needs ealth en-caffeine 00:00: oral route apt for 50 mg-325 00 every 4 further mg-40 mg hours as fills, capsule needed not --AG,RN to exceed 6 capsules per 24hrs as needed butalbital No 1{capsu 6xD take 1 - 2 0 [facility] acetaminoph 6-23 le} capsule by Pt needs ealth en-caffeine 00:00: oral route apt for 50 mg-325 00 every 4 further mg-40 mg hours as fills, capsule needed not --AG,RN to exceed 6 capsules per 24hrs as needed butalbital No 1{capsu 6xD take 1 - 2 0 [facility] acetaminoph 6-23 le} capsule by Pt needs ealth en-caffeine 00:00: oral route apt for 50 mg-325 00 every 4 further mg-40 mg hours as fills, capsule needed not --AG,RN to exceed 6 capsules per 24hrs as needed butalbital- No 1{capsu 6xD take 1 - 2 0 [facility] acetaminoph 6-23 le} capsule by Pt needs ealth en-caffeine 00:00: oral route apt for 50 mg-325 00 every 4 further mg-40 mg hours as fills, capsule needed not --AG,RN to exceed 6 capsules per 24hrs as needed butalbital- No 1{capsu 6xD take 1 - 2 0 [facility] acetaminoph 6-23 le} capsule by Pt needs ealth en-caffeine 00:00: oral route apt for 50 mg-325 00 every 4 further mg-40 mg hours as fills, capsule needed not --AG,RN to exceed 6 capsules per 24hrs as needed butalbital- No 1{capsu 6xD take 1 - 2 0 [facility] acetaminoph 6-23 le} capsule by Pt needs ealth en-caffeine 00:00: oral route apt for 50 mg-325 00 every 4 further mg-40 mg hours as fills, capsule needed not --AG,RN to exceed 6 capsules per 24hrs as needed butalbital- No 1{capsu 6xD take 1 - 2 0 [facility] acetaminoph 6-23 le} capsule by Pt needs ealth en-caffeine 00:00: oral route apt for 50 mg-325 00 every 4 further mg-40 mg hours as fills, capsule needed not --AG,RN to exceed 6 capsules per 24hrs as needed butalbital- No 1{capsu 6xD take 1 - 2 0 [facility] acetaminoph 6-23 le} capsule by Pt needs ealth en-caffeine 00:00: oral route apt for 50 mg-325 00 every 4 further mg-40 mg hours as fills, capsule needed not --AG,RN to exceed 6 capsules per 24hrs as needed butalbital No 1{capsu 6xD take 1 - 2 0 [facility] acetaminoph 6-23 le} capsule by Pt needs ealth en-caffeine 00:00: oral route apt for 50 mg-325 00 every 4 further mg-40 mg hours as fills, capsule needed not --AG,RN to exceed 6 capsules per 24hrs as needed butalbital No 1{capsu 6xD take 1 - 2 0 [facility] acetaminoph 6-23 le} capsule by Pt needs ealth en-caffeine 00:00: oral route apt for 50 mg-325 00 every 4 further mg-40 mg hours as fills, capsule needed not --AG,RN to exceed 6 capsules per 24hrs as needed butalbital 2020- No 1{capsu 6xD take 1 - 2 11/21/19 20 [facility] acetaminoph 6-23 11-12 le} capsule by Pt needs ealth en-caffeine 00:00: 00:00 oral route apt for 50 mg-325 00 :00 every 4 further mg-40 mg hours as fills, capsule needed not --AG,RN to exceed 6 capsules per 24hrs as needed butalbital 2020- No 1{capsu 6xD take 1 - 2 11/21/19 20 [facility] acetaminoph 6-23 11-12 le} capsule by Pt needs ealth en-caffeine 00:00: 00:00 oral route apt for 50 mg-325 00 :00 every 4 further mg-40 mg hours as fills, capsule needed not --AG,RN to exceed 6 capsules per 24hrs as needed butalbital 2020- No 1{capsu 6xD take 1 - 2 11/21/19 20 [facility] acetaminoph 6-23 11-12 le} capsule by Pt needs ealth en-caffeine 00:00: 00:00 oral route apt for 50 mg-325 00 :00 every 4 further mg-40 mg hours as fills, capsule needed not --AG,RN to exceed 6 capsules per 24hrs as needed butalbital 2020- No 1{capsu 6xD take 1 - 2 11/21/19 20 [facility] acetaminoph 6-23 11-12 le} capsule by Pt needs ealth en-caffeine 00:00: 00:00 oral route apt for 50 mg-325 00 :00 every 4 further mg-40 mg hours as fills, capsule needed not --AG,RN to exceed 6 capsules per 24hrs as needed butalbital 2020- No 1{capsu 6xD take 1 - 2 11/21/19 20 [facility] acetaminoph 6-23 11-12 le} capsule by Pt needs ealth en-caffeine 00:00: 00:00 oral route apt for 50 mg-325 00 :00 every 4 further mg-40 mg hours as fills, capsule needed not --AG,RN to exceed 6 capsules per 24hrs as needed butalbital 2020- No 1{capsu 6xD take 1 - 2 11/21/19 20 [facility] acetaminoph 6-23 11-12 le} capsule by Pt needs ealth en-caffeine 00:00: 00:00 oral route apt for 50 mg-325 00 :00 every 4 further mg-40 mg hours as fills, capsule needed not --AG,RN to exceed 6 capsules per 24hrs as needed butalbital 2020- No 1{capsu 6xD take 1 - 2 11/21/19 20 [facility] acetaminoph 6-23 11-12 le} capsule by Pt needs ealth en-caffeine 00:00: 00:00 oral route apt for 50 mg-325 00 :00 every 4 further mg-40 mg hours as fills, capsule needed not --AG,RN to exceed 6 capsules per 24hrs as needed butalbital 2020- No 1{capsu 6xD take 1 - 2 11/21/19 20 [facility] acetaminoph 6-23 11-12 le} capsule by Pt needs ealth en-caffeine 00:00: 00:00 oral route apt for 50 mg-325 00 :00 every 4 further mg-40 mg hours as fills, capsule needed not --AG,RN to exceed 6 capsules per 24hrs as needed butalbital 2020- No 1{capsu 6xD take 1 - 2 11/21/19 20 [facility] acetaminoph 6-23 11-12 le} capsule by Pt needs ealth en-caffeine 00:00: 00:00 oral route apt for 50 mg-325 00 :00 every 4 further mg-40 mg hours as fills, capsule needed not --AG,RN to exceed 6 capsules per 24hrs as needed butalbital 2020- No 1{capsu 6xD take 1 - 2 11/21/19 20 [facility] acetaminoph 6-23 11-12 le} capsule by Pt needs ealth en-caffeine 00:00: 00:00 oral route apt for 50 mg-325 00 :00 every 4 further mg-40 mg hours as fills, capsule needed not --AG,RN to exceed 6 capsules per 24hrs as needed butalbital 2020- No 1{capsu 6xD take 1 - 2 11/21/19 20 [facility] acetaminoph 6-23 11-12 le} capsule by Pt needs ealth en-caffeine 00:00: 00:00 oral route apt for 50 mg-325 00 :00 every 4 further mg-40 mg hours as fills, capsule needed not --AG,RN to exceed 6 capsules per 24hrs as needed butalbital 2020- No 1{capsu 6xD take 1 - 2 11/21/19 20 [facility] acetaminoph 6-23 11-12 le} capsule by Pt needs ealth en-caffeine 00:00: 00:00 oral route apt for 50 mg-325 00 :00 every 4 further mg-40 mg hours as fills, capsule needed not --AG,RN to exceed 6 capsules per 24hrs as needed butalbital 2020- No 1{capsu 6xD take 1 - 2 11/21/19 20 [facility] acetaminoph 6-23 11-12 le} capsule by Pt needs ealth en-caffeine 00:00: 00:00 oral route apt for 50 mg-325 00 :00 every 4 further mg-40 mg hours as fills, capsule needed not --AG,RN to exceed 6 capsules per 24hrs as needed butalbital 2020- No 1{capsu 6xD take 1 - 2 11/21/19 20 [facility] acetaminoph 6-23 11-12 le} capsule by Pt needs ealth en-caffeine 00:00: 00:00 oral route apt for 50 mg-325 00 :00 every 4 further mg-40 mg hours as fills, capsule needed not --AG,RN to exceed 6 capsules per 24hrs as needed butalbital 2020- No 1{capsu 6xD take 1 - 2 11/21/19 20 [facility] acetaminoph 6-23 11-12 le} capsule by Pt needs ealth en-caffeine 00:00: 00:00 oral route apt for 50 mg-325 00 :00 every 4 further mg-40 mg hours as fills, capsule needed not --AG,RN to exceed 6 capsules per 24hrs as needed butalbital 2020- No 1{capsu 6xD take 1 - 2 11/21/19 20 [facility] acetaminoph 6-23 11-12 le} capsule by Pt needs ealth en-caffeine 00:00: 00:00 oral route apt for 50 mg-325 00 :00 every 4 further mg-40 mg hours as fills, capsule needed not --AG,RN to exceed 6 capsules per 24hrs as needed butalbital 2020- No 1{capsu 6xD take 1 - 2 11/21/19 20 [facility] acetaminoph 6-23 11-12 le} capsule by Pt needs ealth en-caffeine 00:00: 00:00 oral route apt for 50 mg-325 00 :00 every 4 further mg-40 mg hours as fills, capsule needed not --AG,RN to exceed 6 capsules per 24hrs as needed butalbital 2020- No 1{capsu 6xD take 1 - 2 11/21/19 20 [facility] acetaminoph 6-23 11-12 le} capsule by Pt needs ealth en-caffeine 00:00: 00:00 oral route apt for 50 mg-325 00 :00 every 4 further mg-40 mg hours as fills, capsule needed not --AG,RN to exceed 6 capsules per 24hrs as needed butalbital 2020- No 1{capsu 6xD take 1 - 2 11/21/19 20 [facility] acetaminoph 6-23 11-12 le} capsule by Pt needs ealth en-caffeine 00:00: 00:00 oral route apt for 50 mg-325 00 :00 every 4 further mg-40 mg hours as fills, capsule needed not --AG,RN to exceed 6 capsules per 24hrs as needed butalbital- 2020- No 1{capsu 6xD take 1 - 2 11/21/19 20 [facility] acetaminoph 6-23 11-12 le} capsule by Pt needs ealth en-caffeine 00:00: 00:00 oral route apt for 50 mg-325 00 :00 every 4 further mg-40 mg hours as fills, capsule needed not --AG,RN to exceed 6 capsules per 24hrs as needed butalbital- 2019- No 1{capsu 6xD take 1 - 2 11/21/19 20 [facility] acetaminoph 6-23 11-12 le} capsule by Pt needs ealth en-caffeine 00:00: 00:00 oral route apt for 50 mg-325 00 :00 every 4 further mg-40 mg hours as fills, capsule needed not --AG,RN to exceed 6 capsules per 24hrs as needed GABAPENTIN 2020- No 3{capsu Q8H TAKE 3 A ccess[facility] 300MG 6-16 08-20 le} CAPSULES ealth CAPSULES 00:00: 00:00 BY MOUTH 00 :00 THREE TIMES DAILY GABAPENTIN 2019-0 2020- No 3{capsu Q8H TAKE 3 A ccessH 300MG 6-16 08-20 le} CAPSULES ealth CAPSULES 00:00: 00:00 BY MOUTH 00 :00 THREE TIMES DAILY GABAPENTIN 2019-0 2020- No 3{capsu Q8H TAKE 3 A ccessH 300MG 6-16 08-20 le} CAPSULES ealth CAPSULES 00:00: 00:00 BY MOUTH 00 :00 THREE TIMES DAILY GABAPENTIN 2019-0 2020- No 3{capsu Q8H TAKE 3 A ccessH 300MG 6-16 08-20 le} CAPSULES ealth CAPSULES 00:00: 00:00 BY MOUTH 00 :00 THREE TIMES DAILY GABAPENTIN 2019-0 2020- No 3{capsu Q8H TAKE 3 A ccessH 300MG 6-16 08-20 le} CAPSULES ealth CAPSULES 00:00: 00:00 BY MOUTH 00 :00 THREE TIMES DAILY GABAPENTIN 2020-0 2020- No 3{capsu Q8H TAKE 3 A ccessH 300MG 6-16 08-20 le} [facility] 00:00: 00:00 BY MOUTH 00 :00 THREE TIMES DAILY GABAPENTIN 2020-0 2020- No 3{capsu Q8H TAKE 3 A ccessH 300MG 6-16 08-20 le} [facility] CAPSULES 00:00: 00:00 BY MOUTH 00 :00 THREE TIMES DAILY GABAPENTIN 2020-0 2020- No 3{capsu Q8H TAKE 3 A ccessH 300MG 6-16 08-20 le} [facility] CAPS[facility] 00:00: 00:00 BY MOUTH 00 :00 THREE TIMES DAILY GABAPENTIN 2020-0 2020- No 3{capsu Q8H TAKE 3 A ccessH 300MG 6-16 08-20 le} [facility] CAPS[facility] 00:00: 00:00 BY MOUTH 00 :00 THREE TIMES DAILY GABAPENTIN 2020-0 2020- No 3{capsu Q8H TAKE 3 A ccessH 300MG 6-16 08-20 le} [facility] CAPS[facility] 00:00: 00:00 BY MOUTH 00 :00 THREE TIMES DAILY GABAPENTIN 2020-0 2020- No 3{capsu Q8H TAKE 3 A ccessH 300MG 6-16 08-20 le} [facility] CAPS[facility]ES 00:00: 00:00 BY MOUTH 00 :00 THREE TIMES DAILY GABAPENTIN 2020-0 2020- No 3{capsu Q8H TAKE 3 A ccessH 300MG 6-16 08-20 le} [facility] CAPS[facility] 00:00: 00:00 BY MOUTH 00 :00 THREE TIMES DAILY GABAPENTIN 2020-0 2020- No 3{capsu Q8H TAKE 3 A ccessH 300MG 6-16 08-20 le} [facility] CAPS[facility] 00:00: 00:00 BY MOUTH 00 :00 THREE TIMES DAILY GABAPENTIN 2020-0 2020- No 3{capsu Q8H TAKE 3 A ccessH 300MG 6-16 08-20 le} [facility] CAPS[facility] 00:00: 00:00 BY MOUTH 00 :00 THREE TIMES DAILY GABAPENTIN 2020-0 2020- No 3{capsu Q8H TAKE 3 A ccessH 300MG 6-16 08-20 le} [facility] CAPS[facility] 00:00: 00:00 BY MOUTH 00 :00 THREE TIMES DAILY GABAPENTIN 2020-0 2020- No 3{capsu Q8H TAKE 3 A ccessH 300MG 6-16 08-20 le} [facility] 00:00: 00:00 BY MOUTH 00 :00 THREE TIMES DAILY GABAPENTIN 2020-0 2020- No 3{capsu Q8H TAKE 3 A ccessH 300MG 6-16 08-20 le} [facility] 00:00: 00:00 BY MOUTH 00 :00 THREE TIMES DAILY GABAPENTIN 2020-0 2020- No 3{capsu Q8H TAKE 3 A ccessH 300MG 6-16 08-20 le} [facility] 00:00: 00:00 BY MOUTH 00 :00 THREE TIMES DAILY GABAPENTIN 2020-0 2020- No 3{capsu Q8H TAKE 3 A ccessH 300MG 6-16 08-20 le} [facility] CAPS[facility] 00:00: 00:00 BY MOUTH 00 :00 THREE TIMES DAILY GABAPENTIN 2020-0 2020- No 3{capsu Q8H TAKE 3 A ccessH 300MG 6-16 08-20 le} [facility] 00:00: 00:00 BY MOUTH 00 :00 THREE TIMES DAILY GABAPENTIN 2020-0 2020- No 3{capsu Q8H TAKE 3 A ccessH 300MG 6-16 08-20 le} [facility] 00:00: 00:00 BY MOUTH 00 :00 THREE TIMES DAILY GABAPENTIN 2020-0 2020- No 3{capsu Q8H TAKE 3 A ccessH 300MG 6-16 08-20 le} [facility] 00:00: 00:00 BY MOUTH 00 :00 THREE TIMES DAILY GABAPENTIN 2020-0 2020- No 3{capsu Q8H TAKE 3 A ccessH 300MG 6-16 08-20 le} [facility] 00:00: 00:00 BY MOUTH 00 :00 THREE TIMES DAILY GABAPENTIN 2020-0 2020- No 3{capsu Q8H TAKE 3 A ccessH 300MG 6-16 08-20 le} [facility] 00:00: 00:00 BY MOUTH 00 :00 THREE TIMES DAILY GABAPENTIN 2020-0 2020- No 3{capsu Q8H TAKE 3 A ccessH 300MG 6-16 08-20 le} [facility] 00:00: 00:00 BY MOUTH 00 :00 THREE TIMES DAILY GABAPENTIN 2020-0 2020- No 3{capsu Q8H TAKE 3 A ccessH 300MG 6-16 08-20 le} [facility] 00:00: 00:00 BY MOUTH 00 :00 THREE TIMES DAILY GABAPENTIN 2020-0 2020- No 3{capsu Q8H TAKE 3 A ccessH 300MG 6-16 08-20 le} [facility] 00:00: 00:00 BY MOUTH 00 :00 THREE TIMES DAILY GABAPENTIN 2020-0 2020- No 3{capsu Q8H TAKE 3 A ccessH 300MG 6-16 08-20 le} [facility] 00:00: 00:00 BY MOUTH 00 :00 THREE TIMES DAILY GABAPENTIN 2020-0 2020- No 3{capsu Q8H TAKE 3 A ccessH 300MG 6-16 08-20 le} [facility] 00:00: 00:00 BY MOUTH 00 :00 THREE TIMES DAILY GABAPENTIN 2020-0 2020- No 3{capsu Q8H TAKE 3 A ccessH 300MG 6-16 08-20 le} [facility] CAPS[facility] 00:00: 00:00 BY MOUTH 00 :00 THREE TIMES DAILY GABAPENTIN 2020-0 2020- No 3{capsu Q8H TAKE 3 A ccessH 300MG 6-16 08-20 le} [facility] CAPS[facility] 00:00: 00:00 BY MOUTH 00 :00 THREE TIMES DAILY GABAPENTIN 2020-0 2020- No 3{capsu Q8H TAKE 3 A ccessH 300MG 6-16 08-20 le} [facility] CAPS[facility] 00:00: 00:00 BY MOUTH 00 :00 THREE TIMES DAILY GABAPENTIN 2020-0 2020- No 3{capsu Q8H TAKE 3 A ccessH 300MG 6-16 08-20 le} [facility] 00:00: 00:00 BY MOUTH 00 :00 THREE TIMES DAILY GABAPENTIN 2020-0 2020- No 3{capsu Q8H TAKE 3 A ccessH 300MG 6-16 08-20 le} [facility] CAPS[facility] 00:00: 00:00 BY MOUTH 00 :00 THREE TIMES DAILY GABAPENTIN 2020-0 2020- No 3{capsu Q8H TAKE 3 A ccessH 300MG 6-16 08-20 le} [facility] 00:00: 00:00 BY MOUTH 00 :00 THREE TIMES DAILY GABAPENTIN 2020-0 2020- No 3{capsu Q8H TAKE 3 A ccessH 300MG 6-16 08-20 le} [facility] 00:00: 00:00 BY MOUTH 00 :00 THREE TIMES DAILY GABAPENTIN 2019-2019- No 3{capsu Q8H TAKE 3 A ccessH 300MG 6-16 08-20 le} [facility] 00:00: 00:00 BY MOUTH 00 :00 THREE TIMES DAILY GABAPENTIN 2019-2019- No 3{capsu Q8H TAKE 3 A ccessH 300MG 6-16 08-20 le} [facility] 00:00: 00:00 BY MOUTH 00 :00 THREE TIMES DAILY TIZANIDINE 2019- No TAKE 1 [facility] 4MG TABLETS 6-16 07-20 [facility] 00:00: 00:00 MOUTH 00 :00 EVERY 6 TO 8 HOURS NEEDED. NOT TO EXCEED 3 DOSES IN 24 HOURS TIZANIDINE 2019- No TAKE 1 [facility] 4MG TABLETS 6-16 07-20 [facility] 00:00: 00:00 MOUTH 00 :00 EVERY 6 TO 8 HOURS NEEDED. NOT TO EXCEED 3 DOSES IN 24 HOURS TIZANIDINE 2019- No TAKE 1 [facility] 4MG TABLETS 6-16 07-20 [facility] 00:00: 00:00 MOUTH 00 :00 EVERY 6 TO 8 HOURS NEEDED. NOT TO EXCEED 3 DOSES IN 24 HOURS TIZANIDINE 2019- No TAKE 1 [facility] 4MG TABLETS 6-16 07-20 [facility] 00:00: 00:00 MOUTH 00 :00 EVERY 6 TO 8 HOURS NEEDED. NOT TO EXCEED 3 DOSES IN 24 HOURS TIZANIDINE 2019- No TAKE 1 [facility] 4MG TABLETS 6-16 07-20 [facility] 00:00: 00:00 MOUTH 00 :00 EVERY 6 TO 8 HOURS NEEDED. NOT TO EXCEED 3 DOSES IN 24 HOURS TIZANIDINE 2019- No TAKE 1 [facility] 4MG TABLETS 6-16 07-20 [facility] 00:00: 00:00 MOUTH 00 :00 EVERY 6 TO 8 HOURS NEEDED. NOT TO EXCEED 3 DOSES IN 24 HOURS TIZANIDINE 2019- No TAKE 1 [facility] 4MG TABLETS 6-16 07-20 [facility] 00:00: 00:00 MOUTH 00 :00 EVERY 6 TO 8 HOURS NEEDED. NOT TO EXCEED 3 DOSES IN 24 HOURS TIZANIDINE 2019- No TAKE 1 [facility] 4MG TABLETS 6-16 07-20 [facility] 00:00: 00:00 MOUTH 00 :00 EVERY 6 TO 8 HOURS NEEDED. NOT TO EXCEED 3 DOSES IN 24 HOURS TIZANIDINE 2019- No TAKE 1 [facility] 4MG TABLETS 6-16 07-20 [facility] 00:00: 00:00 MOUTH 00 :00 EVERY 6 TO 8 HOURS NEEDED. NOT TO EXCEED 3 DOSES IN 24 HOURS TIZANIDINE 2019- No TAKE 1 [facility] 4MG TABLETS 6-16 -20 [facility] 00:00: 00:00 MOUTH 00 :00 EVERY 6 TO 8 HOURS NEEDED. NOT TO EXCEED 3 DOSES IN 24 HOURS TIZANIDINE 2019- No TAKE 1 [facility] 4MG TABLETS 6-16 07-20 [facility] 00:00: 00:00 MOUTH 00 :00 EVERY 6 TO 8 HOURS NEEDED. NOT TO EXCEED 3 DOSES IN 24 HOURS TIZANIDINE 2019- No TAKE 1 [facility] 4MG TABLETS 6-16 -20 [facility] 00:00: 00:00 MOUTH 00 :00 EVERY 6 TO 8 HOURS NEEDED. NOT TO EXCEED 3 DOSES IN 24 HOURS TIZANIDINE 2019- No TAKE 1 [facility] 4MG TABLETS 6-16 07-20 [facility] 00:00: 00:00 MOUTH 00 :00 EVERY 6 TO 8 HOURS NEEDED. NOT TO EXCEED 3 DOSES IN 24 HOURS TIZANIDINE 2019- No TAKE 1 [facility] 4MG TABLETS 6-16 07-20 [facility] 00:00: 00:00 MOUTH 00 :00 EVERY 6 TO 8 HOURS NEEDED. NOT TO EXCEED 3 DOSES IN 24 HOURS TIZANIDINE 2019- No TAKE 1 [facility] 4MG TABLETS 6-16 07-20 [facility] 00:00: 00:00 MOUTH 00 :00 EVERY 6 TO 8 HOURS NEEDED. NOT TO EXCEED 3 DOSES IN 24 HOURS TIZANIDINE 2019- No TAKE 1 [facility] 4MG TABLETS 6-16 07-20 [facility] 00:00: 00:00 MOUTH 00 :00 EVERY 6 TO 8 HOURS NEEDED. NOT TO EXCEED 3 DOSES IN 24 HOURS TIZANIDINE No TAKE 1 [facility] 4MG TABLETS 6-16 07-20 [facility] 00:00: 00:00 MOUTH 00 :00 EVERY 6 TO 8 HOURS NEEDED. NOT TO EXCEED 3 DOSES IN 24 HOURS TIZANIDINE No TAKE 1 [facility] 4MG TABLETS 6-16 07-20 [facility] 00:00: 00:00 MOUTH 00 :00 EVERY 6 TO 8 HOURS NEEDED. NOT TO EXCEED 3 DOSES IN 24 HOURS TIZANIDINE TAKE 1 [facility] 4MG TABLETS 6-16 07-20 [facility] 00:00: 00:00 MOUTH 00 :00 EVERY 6 TO 8 HOURS NEEDED. NOT TO EXCEED 3 DOSES IN 24 HOURS TIZANIDINE TAKE 1 [facility] 4MG TABLETS 6-16 07-20 [facility] 00:00: 00:00 MOUTH 00 :00 EVERY 6 TO 8 HOURS NEEDED. NOT TO EXCEED 3 DOSES IN 24 HOURS TIZANIDINE TAKE 1 [facility] 4MG TABLETS 6-16 07-20 [facility] 00:00: 00:00 MOUTH 00 :00 EVERY 6 TO 8 HOURS NEEDED. NOT TO EXCEED 3 DOSES IN 24 HOURS TIZANIDINE TAKE 1 [facility] 4MG TABLETS 6-16 07-20 [facility] 00:00: 00:00 MOUTH 00 :00 EVERY 6 TO 8 HOURS NEEDED. NOT TO EXCEED 3 DOSES IN 24 HOURS TIZANIDINE No TAKE 1 [facility] 4MG TABLETS 6-16 07-20 [facility] 00:00: 00:00 MOUTH 00 :00 EVERY 6 TO 8 HOURS NEEDED. NOT TO EXCEED 3 DOSES IN 24 HOURS TIZANIDINE No TAKE 1 [facility] 4MG TABLETS 6-16 07-20 [facility] 00:00: 00:00 MOUTH 00 :00 EVERY 6 TO 8 HOURS NEEDED. NOT TO EXCEED 3 DOSES IN 24 HOURS TIZANIDINE 2019- No TAKE 1 [facility] 4MG TABLETS 6-16 07-20 [facility] 00:00: 00:00 MOUTH 00 :00 EVERY 6 TO 8 HOURS NEEDED. NOT TO EXCEED 3 DOSES IN 24 HOURS TIZANIDINE 2019- No TAKE 1 [facility] 4MG TABLETS 6-16 07-20 [facility] 00:00: 00:00 MOUTH 00 :00 EVERY 6 TO 8 HOURS NEEDED. NOT TO EXCEED 3 DOSES IN 24 HOURS TIZANIDINE No TAKE 1 [facility] 4MG TABLETS 6-16 07-20 [facility] 00:00: 00:00 MOUTH 00 :00 EVERY 6 TO 8 HOURS NEEDED. NOT TO EXCEED 3 DOSES IN 24 HOURS TIZANIDINE No TAKE 1 [facility] 4MG TABLETS 6-16 07-20 [facility] 00:00: 00:00 MOUTH 00 :00 EVERY 6 TO 8 HOURS NEEDED. NOT TO EXCEED 3 DOSES IN 24 HOURS TIZANIDINE No TAKE 1 [facility] 4MG TABLETS 6-16 07-20 [facility] 00:00: 00:00 MOUTH 00 :00 EVERY 6 TO 8 HOURS NEEDED. NOT TO EXCEED 3 DOSES IN 24 HOURS TIZANIDINE 2019- No TAKE 1 [facility] 4MG TABLETS 6-16 07-20 [facility] 00:00: 00:00 MOUTH 00 :00 EVERY 6 TO 8 HOURS NEEDED. NOT TO EXCEED 3 DOSES IN 24 HOURS TIZANIDINE 2019- No TAKE 1 [facility] 4MG TABLETS 6-16 07-20 [facility] 00:00: 00:00 MOUTH 00 :00 EVERY 6 TO 8 HOURS NEEDED. NOT TO EXCEED 3 DOSES IN 24 HOURS TIZANIDINE 2019- No TAKE 1 [facility] 4MG TABLETS 6-16 07-20 [facility] 00:00: 00:00 MOUTH 00 :00 EVERY 6 TO 8 HOURS NEEDED. NOT TO EXCEED 3 DOSES IN 24 HOURS TIZANIDINE 2019- No TAKE 1 [facility] 4MG TABLETS 6-16 07-20 [facility] 00:00: 00:00 MOUTH 00 :00 EVERY 6 TO 8 HOURS NEEDED. NOT TO EXCEED 3 DOSES IN 24 HOURS TIZANIDINE 2019- No TAKE 1 [facility] 4MG TABLETS 616 -20 [facility] 00:00: 00:00 MOUTH 00 :00 EVERY 6 TO 8 HOURS NEEDED. NOT TO EXCEED 3 DOSES IN 24 HOURS TIZANIDINE 2019- No TAKE 1 [facility] 4MG TABLETS 616 -20 [facility] 00:00: 00:00 MOUTH 00 :00 EVERY 6 TO 8 HOURS NEEDED. NOT TO EXCEED 3 DOSES IN 24 HOURS TIZANIDINE 2019- No TAKE 1 [facility] 4MG TABLETS 616 -20 [facility] 00:00: 00:00 MOUTH 00 :00 EVERY 6 TO 8 HOURS NEEDED. NOT TO EXCEED 3 DOSES IN 24 HOURS TIZANIDINE 2019- No TAKE 1 [facility] 4MG TABLETS 616 -20 [facility] 00:00: 00:00 MOUTH 00 :00 EVERY 6 TO 8 HOURS NEEDED. NOT TO EXCEED 3 DOSES IN 24 HOURS TIZANIDINE 2019- No TAKE 1 [facility] 4MG TABLETS 616 -20 [facility] 00:00: 00:00 MOUTH 00 :00 EVERY 6 TO 8 HOURS NEEDED. NOT TO EXCEED 3 DOSES IN 24 HOURS ProAir HFA No 1{puff} 6xD inhale 1 [facility] 90 5-26 puff by [email or web address] 00:00: inhalation on aerosol 00 route inhaler every 4 hours as needed as needed ProAir HFA 0 No 1{puff} 6xD inhale 1 [facility] 90 5-26 puff by [email or web address] 00:00: inhalation on aerosol 00 route inhaler every 4 hours as needed as needed ProAir HFA 2019-0 No 1{puff} 6xD inhale 1 [facility] 90 5-26 puff by [facility] 00:00: inhalation on aerosol 00 route inhaler every 4 hours as needed as needed ProAir HFA No 1{puff} 6xD inhale 1 [facility] 90 5-26 puff by [facility]ati 00:00: inhalation on aerosol 00 route inhaler every 4 hours as needed as needed ProAir HFA 0 No 1{puff} 6xD inhale 1 [facility] 90 5-26 puff by [facility]ati 00:00: inhalation on aerosol 00 route inhaler every 4 hours as needed as needed ProAir HFA No 1{puff} 6xD inhale 1 [facility] 90 5-26 puff by [facility]ati 00:00: inhalation on aerosol 00 route inhaler every 4 hours as needed as needed ProAir HFA 0 No 1{puff} 6xD inhale 1 [facility] 90 5-26 puff by [facility]ati 00:00: inhalation on aerosol 00 route inhaler every 4 hours as needed as needed ProAir HFA No 1{puff} 6xD inhale 1 [facility] 90 5-26 puff by [facility]ati 00:00: inhalation on aerosol 00 route inhaler every 4 hours as needed as needed ProAir HFA 0 No 1{puff} 6xD inhale 1 [facility] 90 5-26 puff by [facility]ati 00:00: inhalation on aerosol 00 route inhaler every 4 hours as needed as needed ProAir HFA 0 No 1{puff} 6xD inhale 1 [facility] 90 5-26 puff by [facility]ati 00:00: inhalation on aerosol 00 route inhaler every 4 hours as needed as needed ProAir HFA 0 No 1{puff} 6xD inhale 1 [facility] 90 5-26 puff by [facility]ati 00:00: inhalation on aerosol 00 route inhaler every 4 hours as needed as needed ProAir HFA 0 No 1{puff} 6xD inhale 1 [facility] 90 5-26 puff by [facility]ati 00:00: inhalation on aerosol 00 route inhaler every 4 hours as needed as needed ProAir HFA 0 No 1{puff} 6xD inhale 1 [facility] 90 5-26 puff by [facility]ati 00:00: inhalation on aerosol 00 route inhaler every 4 hours as needed as needed ProAir HFA No 1{puff} 6xD inhale 1 [facility] 90 5-26 puff by [facility]ati 00:00: inhalation on aerosol 00 route inhaler every 4 hours as needed as needed ProAir HFA No 1{puff} 6xD inhale 1 [facility] 90 5-26 puff by [facility]uati 00:00: inhalation on aerosol 00 route inhaler every 4 hours as needed as needed ProAir HFA No 1{puff} 6xD inhale 1 [facility] 90 5-26 puff by [facility]uati 00:00: inhalation on aerosol 00 route inhaler every 4 hours as needed as needed ProAir HFA No 1{puff} 6xD inhale 1 [facility] 90 5-26 puff by [facility]uati 00:00: inhalation on aerosol 00 route inhaler every 4 hours as needed as needed ProAir HFA 2019- No 1{puff} 6xD inhale 1 [facility] 90 5-26 11-12 puff by [facility]ati 00:00: 00:00 inhalation on aerosol 00 :00 route inhaler every 4 hours as needed as needed ProAir HFA 2019- No 1{puff} 6xD inhale 1 [facility] 90 5-26 11-12 puff by [facility]ati 00:00: 00:00 inhalation on aerosol 00 :00 route inhaler every 4 hours as needed as needed ProAir HFA 2019- No 1{puff} 6xD inhale 1 [facility] 90 5-26 11-12 puff by [facility]ati 00:00: 00:00 inhalation on aerosol 00 :00 route inhaler every 4 hours as needed as needed ProAir HFA 2019- No 1{puff} 6xD inhale 1 [facility] 90 5-26 11-12 puff by [facility] 00:00: 00:00 inhalation on aerosol 00 :00 route inhaler every 4 hours as needed as needed ProAir HFA 2019- No 1{puff} 6xD inhale 1 [facility] 90 5-26 11-12 puff by [facility] 00:00: 00:00 inhalation on aerosol 00 :00 route inhaler every 4 hours as needed as needed ProAir HFA 2019- No 1{puff} 6xD inhale 1 [facility] 90 5-26 11-12 puff by [facility]ati 00:00: 00:00 inhalation on aerosol 00 :00 route inhaler every 4 hours as needed as needed ProAir HFA 2019- No 1{puff} 6xD inhale 1 [facility] 90 5-26 11-12 puff by [facility] 00:00: 00:00 inhalation on aerosol 00 :00 route inhaler every 4 hours as needed as needed ProAir HFA 2019- No 1{puff} 6xD inhale 1 [facility] 90 5-26 11-12 puff by [facility] mcg/actuati 00:00: 00:00 inhalation on aerosol 00 :00 route inhaler every 4 hours as needed as needed ProAir HFA 2019- No 1{puff} 6xD inhale 1 [facility] 90 5-26 11-12 puff by [facility] mcg/actuati 00:00: 00:00 inhalation on aerosol 00 :00 route inhaler every 4 hours as needed as needed ProAir HFA 2019- No 1{puff} 6xD inhale 1 [facility] 90 5-26 11-12 puff by [facility] m[facility]/actuati 00:00: 00:00 inhalation on aerosol 00 :00 route inhaler every 4 hours as needed as needed ProAir HFA 2019- No 1{puff} 6xD inhale 1 [facility] 90 5-26 11-12 puff by [facility]ati 00:00: 00:00 inhalation on aerosol 00 :00 route inhaler every 4 hours as needed as needed ProAir HFA 2019- No 1{puff} 6xD inhale 1 [facility] 90 5-26 11-12 puff by [facility]ati 00:00: 00:00 inhalation on aerosol 00 :00 route inhaler every 4 hours as needed as needed ProAir HFA 2019- No 1{puff} 6xD inhale 1 [facility] 90 5-26 11-12 puff by [facility]ati 00:00: 00:00 inhalation on aerosol 00 :00 route inhaler every 4 hours as needed as needed ProAir HFA 2019- No 1{puff} 6xD inhale 1 [facility] 90 5-26 11-12 puff by [facility]ati 00:00: 00:00 inhalation on aerosol 00 :00 route inhaler every 4 hours as needed as needed ProAir HFA 2019- No 1{puff} 6xD inhale 1 [facility] 90 5-26 11-12 puff by [facility]/actuati 00:00: 00:00 inhalation on aerosol 00 :00 route inhaler every 4 hours as needed as needed ProAir HFA 2019- No 1{puff} 6xD inhale 1 [facility] 90 5-26 11-12 puff by [facility]/actuati 00:00: 00:00 inhalation on aerosol 00 :00 route inhaler every 4 hours as needed as needed ProAir HFA 2019- No 1{puff} 6xD inhale 1 [facility] 90 5-26 11-12 puff by [facility]/actuati 00:00: 00:00 inhalation on aerosol 00 :00 route inhaler every 4 hours as needed as needed ProAir HFA 2019- No 1{puff} 6xD inhale 1 [facility] 90 5-26 11-12 puff by [facility]/actuati 00:00: 00:00 inhalation on aerosol 00 :00 route inhaler every 4 hours as needed as needed ProAir HFA 2019- No 1{puff} 6xD inhale 1 [facility] 90 5-26 11-12 puff by [facility]/actuati 00:00: 00:00 inhalation on aerosol 00 :00 route inhaler every 4 hours as needed as needed ProAir HFA 2019- No 1{puff} 6xD inhale 1 [facility] 90 5-26 11-12 puff by [facility]ati 00:00: 00:00 inhalation on aerosol 00 :00 route inhaler every 4 hours as needed as needed ProAir HFA 2019- No 1{puff} 6xD inhale 1 [facility] 90 5-26 11-12 puff by [facility]ati 00:00: 00:00 inhalation on aerosol 00 :00 route inhaler every 4 hours as needed as needed ProAir HFA 2019- 2020- No 1{puff} Q4H inhale 1 [facility] 90 5-26 08-20 puff by [facility]ati 00:00: 00:00 inhalation on aerosol 00 :00 route inhaler every 4 hours as needed Advair 2019- 2020- No 1{puff} Q12H inhale 1 [facility] 100 5-26 08-20 puff by [email or web address] 00:00: 00:00 inhalation mcg/dose 00 :00 route 2 powder for times inhalation every day in the morning and evening approximat jaya 12 hours apart for asthma ProAir HFA 2019- 2020- No 1{puff} Q4H inhale 1 [facility] 90 5-26 08-20 puff by [facility]ati 00:00: 00:00 inhalation on aerosol 00 :00 route inhaler every 4 hours as needed Advair 2019- 2020- No 1{puff} Q12H inhale 1 [facility] 100 5-26 08-20 puff by [email or web address] 00:00: 00:00 inhalation mcg/dose 00 :00 route 2 powder for times inhalation every day in the morning and evening approximat jaya 12 hours apart for asthma ProAir HFA 2019- 2020- No 1{puff} Q4H inhale 1 [facility] 90 5-26 08-20 puff by [facility]uati 00:00: 00:00 inhalation on aerosol 00 :00 route inhaler every 4 hours as needed Advair 2019- 2020- No 1{puff} Q12H inhale 1 [facility] 100 5-26 08-20 puff by [email or web address] 00:00: 00:00 inhalation mcg/dose 00 :00 route 2 powder for times inhalation every day in the morning and evening approximat jaya 12 hours apart for asthma ProAir HFA 2019- 2020- No 1{puff} Q4H inhale 1 [facility] 90 5-26 08-20 puff by [facility]ati 00:00: 00:00 inhalation on aerosol 00 :00 route inhaler every 4 hours as needed Advair 2020-0 2020- No 1{puff} Q12H inhale 1 [facility] Disk[facility] 100 5-26 08-20 puff by [email or web address] 00:00: 00:00 inhalation mcg/dose 00 :00 route 2 powder for times inhalation every day in the morning and evening approximat jaya 12 hours apart for asthma ProAir HFA 2020-0 2020- No 1{puff} Q4H inhale 1 [facility] 90 5-26 08-20 puff by [facility]ati 00:00: 00:00 inhalation on aerosol 00 :00 route inhaler every 4 hours as needed Advair 2020-0 2020- No 1{puff} Q12H inhale 1 [facility] Disk[facility] 100 5-26 08-20 puff by [email or web address] 00:00: 00:00 inhalation mcg/dose 00 :00 route 2 powder for times inhalation every day in the morning and evening approximat jaya 12 hours apart for asthma ProAir HFA 2020-0 2020- No 1{puff} Q4H inhale 1 [facility] 90 5-26 08-20 puff by [facility]ati 00:00: 00:00 inhalation on aerosol 00 :00 route inhaler every 4 hours as needed Advair 2020-0 2020- No 1{puff} Q12H inhale 1 [facility] Diskus 100 5-26 08-20 puff by [email or web address] 00:00: 00:00 inhalation mcg/dose 00 :00 route 2 powder for times inhalation every day in the morning and evening approximat jaya 12 hours apart for asthma ProAir HFA 2020-0 2020- No 1{puff} Q4H inhale 1 [facility] 90 5-26 08-20 puff by [facility]actuati 00:00: 00:00 inhalation on aerosol 00 :00 route inhaler every 4 hours as needed Advair 2020-0 2020- No 1{puff} Q12H inhale 1 [facility] Diskus 100 5-26 08-20 puff by [email or web address] 00:00: 00:00 inhalation mcg/dose 00 :00 route 2 powder for times inhalation every day in the morning and evening approximat jaya 12 hours apart for asthma ProAir HFA 2020-0 2020- No 1{puff} Q4H inhale 1 [facility] 90 5-26 08-20 puff by [facility]/actuati 00:00: 00:00 inhalation on aerosol 00 :00 route inhaler every 4 hours as needed Advair 2019- 2020- No 1{puff} Q12H inhale 1 [facility] Diskus 100 5-26 08-20 puff by [email or web address] 00:00: 00:00 inhalation mcg/dose 00 :00 route 2 powder for times inhalation every day in the morning and evening approximat jaya 12 hours apart for asthma ProAir HFA 2019- 2020- No 1{puff} Q4H inhale 1 [facility] 90 5-26 08-20 puff by [facility]actuati 00:00: 00:00 inhalation on aerosol 00 :00 route inhaler every 4 hours as needed Advair 2019- 2020- No 1{puff} Q12H inhale 1 [facility] Diskus 100 5-26 08-20 puff by [email or web address] 00:00: 00:00 inhalation mcg/dose 00 :00 route 2 powder for times inhalation every day in the morning and evening approximat jaya 12 hours apart for asthma ProAir HFA 2019- 2020- No 1{puff} Q4H inhale 1 [facility] 90 5-26 08-20 puff by [facility]actuati 00:00: 00:00 inhalation on aerosol 00 :00 route inhaler every 4 hours as needed Advair 2019- 2020- No 1{puff} Q12H inhale 1 [facility] Diskus 100 5-26 08-20 puff by [email or web address] 00:00: 00:00 inhalation mcg/dose 00 :00 route 2 powder for times inhalation every day in the morning and evening approximat jaya 12 hours apart for asthma ProAir HFA 2019- 2020- No 1{puff} Q4H inhale 1 [facility] 90 5-26 08-20 puff by [facility]actuati 00:00: 00:00 inhalation on aerosol 00 :00 route inhaler every 4 hours as needed Advair 2019- 2020- No 1{puff} Q12H inhale 1 Acc essH Diskus 100 5-26 08-20 puff by [facility] [email or web address] 00:00: 00:00 inhalation mcg/dose 00 :00 route 2 powder for times inhalation every day in the morning and evening approximat jaya 12 hours apart for asthma ProAir HFA 2020-0 2020- No 1{puff} Q4H inhale 1 AccessH 90 5-26 08-20 puff by [facility] [email or web address]/actuati 00:00: 00:00 inhalation on aerosol 00 :00 route inhaler every 4 hours as needed Advair 2020-0 2020- No 1{puff} Q12H inhale 1 Acc ess[facility] Diskus 100 5-26 08-20 puff by [facility] [email or web address] 00:00: 00:00 inhalation mcg/dose 00 :00 route 2 powder for times inhalation every day in the morning and evening approximat jaya 12 hours apart for asthma ProAir HFA 2019- 2020- No 1{puff} Q4H inhale 1 Access[facility] 90 5-26 08-20 puff by [facility] mcg/actuati 00:00: 00:00 inhalation on aerosol 00 :00 route inhaler every 4 hours as needed Advair 2020-0 2020- No 1{puff} Q12H inhale 1 Acc ess[facility] Diskus 100 5-26 08-20 puff by [facility] [email or web address] 00:00: 00:00 inhalation mcg/dose 00 :00 route 2 powder for times inhalation every day in the morning and evening approximat jaya 12 hours apart for asthma ProAir HFA 2020-0 2020- No 1{puff} Q4H inhale 1 AccessH 90 5-26 08-20 puff by [facility] mcg/actuati 00:00: 00:00 inhalation on aerosol 00 :00 route inhaler every 4 hours as needed Advair 2020-0 2020- No 1{puff} Q12H inhale 1 Acc ess[facility] Diskus 100 5-26 08-20 puff by [facility] [email or web address] 00:00: 00:00 inhalation mcg/dose 00 :00 route 2 powder for times inhalation every day in the morning and evening approximat jaya 12 hours apart for asthma ProAir HFA 2020-0 2020- No 1{puff} Q4H inhale 1 [facility] 90 5-26 08-20 puff by [facility] 00:00: 00:00 inhalation on aerosol 00 :00 route inhaler every 4 hours as needed Advair 2020-0 2020- No 1{puff} Q12H inhale 1 [facility] Diskus 100 5-26 08-20 puff by [email or web address] 00:00: 00:00 inhalation mcg/dose 00 :00 route 2 powder for times inhalation every day in the morning and evening approximat jaya 12 hours apart for asthma ProAir HFA 2020-0 2020- No 1{puff} Q4H inhale 1 [facility] 90 5-26 08-20 puff by [facility] 00:00: 00:00 inhalation on aerosol 00 :00 route inhaler every 4 hours as needed Advair 2020-0 2020- No 1{puff} Q12H inhale 1 [facility] Diskus 100 5-26 08-20 puff by [email or web address] 00:00: 00:00 inhalation mcg/dose 00 :00 route 2 powder for times inhalation every day in the morning and evening approximat jaya 12 hours apart for asthma ProAir HFA 2019-0 2020- No 1{puff} Q4H inhale 1 [facility] 90 5-26 08-20 puff by [facility] 00:00: 00:00 inhalation on aerosol 00 :00 route inhaler every 4 hours as needed Advair 2020-0 2020- No 1{puff} Q12H inhale 1 [facility] Diskus 100 5-26 08-20 puff by [email or web address] 00:00: 00:00 inhalation mcg/dose 00 :00 route 2 powder for times inhalation every day in the morning and evening approximat jaya 12 hours apart for asthma ProAir HFA 2020-0 2020- No 1{puff} Q4H inhale 1 [facility] 90 5-26 08-20 puff by [facility] 00:00: 00:00 inhalation on aerosol 00 :00 route inhaler every 4 hours as needed Advair 2020-0 2020- No 1{puff} Q12H inhale 1 [facility] Diskus 100 5-26 08-20 puff by [email or web address] 00:00: 00:00 inhalation mcg/dose 00 :00 route 2 powder for times inhalation every day in the morning and evening approximat jaya 12 hours apart for asthma ProAir HFA 2019- 2020- No 1{puff} Q4H inhale 1 [facility] 90 5-26 08-20 puff by [facility] 00:00: 00:00 inhalation on aerosol 00 :00 route inhaler every 4 hours as needed Advair 2019- 2020- No 1{puff} Q12H inhale 1 [facility] Diskus 100 5-26 08-20 puff by [email or web address] 00:00: 00:00 inhalation mcg/dose 00 :00 route 2 powder for times inhalation every day in the morning and evening approximat jaya 12 hours apart for asthma Advair 2019- 2020- No 1{puff} Q12H inhale 1 [facility] Diskus 100 5-26 08-20 puff by [email or web address] 00:00: 00:00 inhalation mcg/dose 00 :00 route 2 powder for times inhalation every day in the morning and evening approximat jaya 12 hours apart for asthma ProAir HFA 2019- 2020- No 1{puff} Q4H inhale 1 [facility] 90 5-26 08-20 puff by [facility] 00:00: 00:00 inhalation on aerosol 00 :00 route inhaler every 4 hours as needed ProAir HFA 2019- 2020- No 1{puff} Q4H inhale 1 [facility] 90 5-26 08-20 puff by [facility] 00:00: 00:00 inhalation on aerosol 00 :00 route inhaler every 4 hours as needed Advair 2019- 2020- No 1{puff} Q12H inhale 1 [facility] Diskus 100 5-26 08-20 puff by [email or web address] 00:00: 00:00 inhalation mcg/dose 00 :00 route 2 powder for times inhalation every day in the morning and evening approximat jaya 12 hours apart for asthma ProAir HFA 2020- 2020- No 1{puff} Q4H inhale 1 [facility] 90 5-26 08-20 puff by [facility] 00:00: 00:00 inhalation on aerosol 00 :00 route inhaler every 4 hours as needed Advair 2019- 2020- No 1{puff} Q12H inhale 1 [facility] Diskus 100 5-26 08-20 puff by [email or web address] 00:00: 00:00 inhalation mcg/dose 00 :00 route 2 powder for times inhalation every day in the morning and evening approximat jaya 12 hours apart for asthma ProAir HFA 2020-0 2020- No 1{puff} Q4H inhale 1 [facility] 90 5-26 08-20 puff by [facility] 00:00: 00:00 inhalation on aerosol 00 :00 route inhaler every 4 hours as needed Advair 2020- 2020- No 1{puff} Q12H inhale 1 [facility] Diskus 100 5-26 08-20 puff by [email or web address] 00:00: 00:00 inhalation mcg/dose 00 :00 route 2 powder for times inhalation every day in the morning and evening approximat jaya 12 hours apart for asthma ProAir HFA 2020- 2020- No 1{puff} Q4H inhale 1 [facility] 90 5-26 08-20 puff by [facility] 00:00: 00:00 inhalation on aerosol 00 :00 route inhaler every 4 hours as needed Advair 2020-0 2020- No 1{puff} Q12H inhale 1 [facility] Diskus 100 5-26 08-20 puff by [email or web address] 00:00: 00:00 inhalation mcg/dose 00 :00 route 2 powder for times inhalation every day in the morning and evening approximat jaya 12 hours apart for asthma ProAir HFA 2020- 2020- No 1{puff} Q4H inhale 1 [facility] 90 5-26 08-20 puff by [facility] 00:00: 00:00 inhalation on aerosol 00 :00 route inhaler every 4 hours as needed Advair 2020-0 2020- No 1{puff} Q12H inhale 1 [facility] Diskus 100 5-26 08-20 puff by [email or web address] 00:00: 00:00 inhalation mcg/dose 00 :00 route 2 powder for times inhalation every day in the morning and evening approximat jaya 12 hours apart for asthma ProAir HFA 2020- 2020- No 1{puff} Q4H inhale 1 [facility] 90 5-26 08-20 puff by [facility] 00:00: 00:00 inhalation on aerosol 00 :00 route inhaler every 4 hours as needed Advair 2020-0 2020- No 1{puff} Q12H inhale 1 [facility] Diskus 100 5-26 08-20 puff by [email or web address] 00:00: 00:00 inhalation mcg/dose 00 :00 route 2 powder for times inhalation every day in the morning and evening approximat jaya 12 hours apart for asthma ProAir HFA 2020- 2020- No 1{puff} Q4H inhale 1 [facility] 90 5-26 08-20 puff by [facility] 00:00: 00:00 inhalation on aerosol 00 :00 route inhaler every 4 hours as needed Advair 2020-0 2020- No 1{puff} Q12H inhale 1 [facility] Diskus 100 5-26 08-20 puff by [facility] [email or web address] 00:00: 00:00 inhalation mcg/dose 00 :00 route 2 powder for times inhalation every day in the morning and evening approximat jaya 12 hours apart for asthma ProAir HFA 2020-0 2020- No 1{puff} Q4H inhale 1 [facility] 90 5-26 08-20 puff by [facility]ati 00:00: 00:00 inhalation on aerosol 00 :00 route inhaler every 4 hours as needed Advair 2020-0 2020- No 1{puff} Q12H inhale 1 [facility] Diskus 100 5-26 08-20 puff by [email or web address] 00:00: 00:00 inhalation mcg/dose 00 :00 route 2 powder for times inhalation every day in the morning and evening approximat jaya 12 hours apart for asthma ProAir HFA 2020-0 2020- No 1{puff} Q4H inhale 1 [facility] 90 5-26 08-20 puff by [facility]ati 00:00: 00:00 inhalation on aerosol 00 :00 route inhaler every 4 hours as needed Advair 2020-0 2020- No 1{puff} Q12H inhale 1 [facility] Diskus 100 5-26 08-20 puff by [email or web address] 00:00: 00:00 inhalation mcg/dose 00 :00 route 2 powder for times inhalation every day in the morning and evening approximat jaya 12 hours apart for asthma ProAir HFA 2020- 2020- No 1{puff} Q4H inhale 1 [facility] 90 5-26 08-20 puff by [facility]ati 00:00: 00:00 inhalation on aerosol 00 :00 route inhaler every 4 hours as needed Advair 2019- 2020- No 1{puff} Q12H inhale 1 [facility] Diskus 100 5-26 08-20 puff by [email or web address] 00:00: 00:00 inhalation mcg/dose 00 :00 route 2 powder for times inhalation every day in the morning and evening approximat jaya 12 hours apart for asthma ProAir HFA 2019- 2020- No 1{puff} Q4H inhale 1 [facility] 90 5-26 08-20 puff by [facility]ati 00:00: 00:00 inhalation on aerosol 00 :00 route inhaler every 4 hours as needed Advair 2019- 2020- No 1{puff} Q12H inhale 1 [facility] Diskus 100 5-26 08-20 puff by [email or web address] 00:00: 00:00 inhalation mcg/dose 00 :00 route 2 powder for times inhalation every day in the morning and evening approximat jaya 12 hours apart for asthma ProAir HFA 2019- 2020- No 1{puff} Q4H inhale 1 [facility] 90 5-26 08-20 puff by [facility]ati 00:00: 00:00 inhalation on aerosol 00 :00 route inhaler every 4 hours as needed Advair 2020- 2020- No 1{puff} Q12H inhale 1 [facility] Diskus 100 5-26 08-20 puff by [email or web address] 00:00: 00:00 inhalation mcg/dose 00 :00 route 2 powder for times inhalation every day in the morning and evening approximat jaya 12 hours apart for asthma ProAir HFA 2020- 2020- No 1{puff} Q4H inhale 1 [facility] 90 5-26 08-20 puff by [facility]ati 00:00: 00:00 inhalation on aerosol 00 :00 route inhaler every 4 hours as needed Advair 2020-0 2020- No 1{puff} Q12H inhale 1 [facility] Diskus 100 5-26 08-20 puff by [email or web address] 00:00: 00:00 inhalation mcg/dose 00 :00 route 2 powder for times inhalation every day in the morning and evening approximat jaya 12 hours apart for asthma ProAir HFA 2020- 2020- No 1{puff} Q4H inhale 1 [facility] 90 5-26 08-20 puff by [facility] 00:00: 00:00 inhalation on aerosol 00 :00 route inhaler every 4 hours as needed Advair 2019- 2020- No 1{puff} Q12H inhale 1 [facility] Diskus 100 5-26 08-20 puff by [email or web address] 00:00: 00:00 inhalation mcg/dose 00 :00 route 2 powder for times inhalation every day in the morning and evening approximat jaya 12 hours apart for asthma ProAir HFA 2019- 2020- No 1{puff} Q4H inhale 1 [facility] 90 5-26 08-20 puff by [facility]ati 00:00: 00:00 inhalation on aerosol 00 :00 route inhaler every 4 hours as needed Advair 2020-0 2020- No 1{puff} Q12H inhale 1 [facility] Diskus 100 5-26 08-20 puff by [email or web address] 00:00: 00:00 inhalation mcg/dose 00 :00 route 2 powder for times inhalation every day in the morning and evening approximat jaya 12 hours apart for asthma ProAir HFA 2020- 2020- No 1{puff} Q4H inhale 1 [facility] 90 5-26 08-20 puff by [facility]ati 00:00: 00:00 inhalation on aerosol 00 :00 route inhaler every 4 hours as needed Advair 2020-0 2020- No 1{puff} Q12H inhale 1 [facility] Diskus 100 5-26 08-20 puff by [email or web address] 00:00: 00:00 inhalation mcg/dose 00 :00 route 2 powder for times inhalation every day in the morning and evening approximat jaya 12 hours apart for asthma ProAir HFA 2020-0 2020- No 1{puff} Q4H inhale 1 [facility] 90 5-26 08-20 puff by [facility] 00:00: 00:00 inhalation on aerosol 00 :00 route inhaler every 4 hours as needed Advair 2019-0 2020- No 1{puff} Q12H inhale 1 [facility] Diskus 100 5-26 08-20 puff by [email or web address] 00:00: 00:00 inhalation mcg/dose 00 :00 route 2 powder for times inhalation every day in the morning and evening approximat jaya 12 hours apart for asthma ProAir HFA 2019- 2020- No 1{puff} Q4H inhale 1 [facility] 90 5-26 08-20 puff by [facility]ati 00:00: 00:00 inhalation on aerosol 00 :00 route inhaler every 4 hours as needed Advair 2019-2019- No 1{puff} Q12H inhale 1 [facility] Diskus 100 5-26 08-20 puff by [email or web address] 00:00: 00:00 inhalation mcg/dose 00 :00 route 2 powder for times inhalation every day in the morning and evening approximat jaya 12 hours apart for asthma temazepam 2019-0 2020- No 1{capsu Q1D take 1 [facility] 30 mg 5-13 08-21 le} capsule by [facility] capsule 00:00: 00:00 oral route 00 :00 every day at bedtime as needed temazepam 2019-0 2020- No 1{capsu Q1D take 1 [facility] 30 mg 5-13 08-21 le} capsule by [facility] capsule 00:00: 00:00 oral route 00 :00 every day at bedtime as needed temazepam 2019-0 2020- No 1{capsu Q1D take 1 [facility] 30 mg 5-13 08-21 le} capsule by [facility] capsule 00:00: 00:00 oral route 00 :00 every day at bedtime as needed temazepam 2020-0 2020- No 1{capsu Q1D take 1 [facility] 30 mg 5-13 08-21 le} capsule by [facility] capsule 00:00: 00:00 oral route 00 :00 every day at bedtime as needed temazepam 2020-0 2020- No 1{capsu Q1D take 1 [facility] 30 mg 5-13 08-21 le} capsule by [facility] capsule 00:00: 00:00 oral route 00 :00 every day at bedtime as needed temazepam 2020-0 2020- No 1{capsu Q1D take 1 [facility] 30 mg 5-13 08-21 le} capsule by [facility] capsule 00:00: 00:00 oral route 00 :00 every day at bedtime as needed temazepam 2020-0 2020- No 1{capsu Q1D take 1 [facility] 30 mg 5-13 08-21 le} capsule by [facility] capsule 00:00: 00:00 oral route 00 :00 every day at bedtime as needed temazepam 2020-0 2020- No 1{capsu Q1D take 1 [facility] 30 mg 5-13 08-21 le} capsule by [facility] capsule 00:00: 00:00 oral route 00 :00 every day at bedtime as needed temazepam 2020-0 2020- No 1{capsu Q1D take 1 [facility] 30 mg 5-13 08-21 le} capsule by [facility] capsule 00:00: 00:00 oral route 00 :00 every day at bedtime as needed temazepam 2020-0 2020- No 1{capsu Q1D take 1 [facility] 30 mg 5-13 08-21 le} capsule by [facility] capsule 00:00: 00:00 oral route 00 :00 every day at bedtime as needed temazepam 2020-0 2020- No 1{capsu Q1D take 1 [facility] 30 mg 5-13 08-21 le} capsule by [facility] capsule 00:00: 00:00 oral route 00 :00 every day at bedtime as needed temazepam 2020-0 2020- No 1{capsu Q1D take 1 [facility] 30 mg 5-13 08-21 le} capsule by [facility] capsule 00:00: 00:00 oral route 00 :00 every day at bedtime as needed temazepam 2020-0 2020- No 1{capsu Q1D take 1 [facility] 30 mg 5-13 08-21 le} capsule by [facility] capsule 00:00: 00:00 oral route 00 :00 every day at bedtime as needed temazepam 2020-0 2020- No 1{capsu Q1D take 1 [facility] 30 mg 5-13 08-21 le} capsule by [facility] capsule 00:00: 00:00 oral route 00 :00 every day at bedtime as needed temazepam 2020-0 2020- No 1{capsu Q1D take 1 [facility] 30 mg 5-13 08-21 le} capsule by [facility] capsule 00:00: 00:00 oral route 00 :00 every day at bedtime as needed temazepam 2020-0 2020- No 1{capsu Q1D take 1 [facility] 30 mg 5-13 08-21 le} capsule by [facility] capsule 00:00: 00:00 oral route 00 :00 every day at bedtime as needed temazepam 2020-0 2020- No 1{capsu Q1D take 1 [facility] 30 mg 5-13 08-21 le} capsule by [facility] capsule 00:00: 00:00 oral route 00 :00 every day at bedtime as needed temazepam 2020-0 2020- No 1{capsu Q1D take 1 [facility] 30 mg 5-13 08-21 le} capsule by [facility] capsule 00:00: 00:00 oral route 00 :00 every day at bedtime as needed temazepam 2020-0 2020- No 1{capsu Q1D take 1 [facility] 30 mg 5-13 08-21 le} capsule by [facility] capsule 00:00: 00:00 oral route 00 :00 every day at bedtime as needed temazepam 2020-0 2020- No 1{capsu Q1D take 1 [facility] 30 mg 5-13 08-21 le} capsule by [facility] capsule 00:00: 00:00 oral route 00 :00 every day at bedtime as needed temazepam 2020-0 2020- No 1{capsu Q1D take 1 [facility] 30 mg 5-13 08-21 le} capsule by [facility] capsule 00:00: 00:00 oral route 00 :00 every day at bedtime as needed temazepam 2020-0 2020- No 1{capsu Q1D take 1 [facility] 30 mg 5-13 08-21 le} capsule by [facility] capsule 00:00: 00:00 oral route 00 :00 every day at bedtime as needed temazepam 2020-0 2020- No 1{capsu Q1D take 1 [facility] 30 mg 5-13 08-21 le} capsule by [facility] capsule 00:00: 00:00 oral route 00 :00 every day at bedtime as needed temazepam 2020-0 2020- No 1{capsu Q1D take 1 [facility] 30 mg 5-13 08-21 le} capsule by [facility] capsule 00:00: 00:00 oral route 00 :00 every day at bedtime as needed temazepam 2020-0 2020- No 1{capsu Q1D take 1 [facility] 30 mg 5-13 08-21 le} capsule by [facility] capsule 00:00: 00:00 oral route 00 :00 every day at bedtime as needed temazepam 2020-0 2020- No 1{capsu Q1D take 1 [facility] 30 mg 5-13 08-21 le} capsule by [facility] capsule 00:00: 00:00 oral route 00 :00 every day at bedtime as needed temazepam 2020-0 2020- No 1{capsu Q1D take 1 [facility] 30 mg 5-13 08-21 le} capsule by [facility] capsule 00:00: 00:00 oral route 00 :00 every day at bedtime as needed temazepam 2020-0 2020- No 1{capsu Q1D take 1 [facility] 30 mg 5-13 08-21 le} capsule by [facility] capsule 00:00: 00:00 oral route 00 :00 every day at bedtime as needed temazepam 2020-0 2020- No 1{capsu Q1D take 1 [facility] 30 mg 5-13 08-21 le} capsule by [facility] capsule 00:00: 00:00 oral route 00 :00 every day at bedtime as needed temazepam 2020-0 2020- No 1{capsu Q1D take 1 [facility] 30 mg 5-13 08-21 le} capsule by [facility] capsule 00:00: 00:00 oral route 00 :00 every day at bedtime as needed temazepam 2020-0 2020- No 1{capsu Q1D take 1 [facility] 30 mg 5-13 08-21 le} capsule by [facility] capsule 00:00: 00:00 oral route 00 :00 every day at bedtime as needed temazepam 2020-0 2020- No 1{capsu Q1D take 1 [facility] 30 mg 5-13 08-21 le} capsule by [facility] capsule 00:00: 00:00 oral route 00 :00 every day at bedtime as needed temazepam 2020-0 2020- No 1{capsu Q1D take 1 [facility] 30 mg 5-13 08-21 le} capsule by [facility] capsule 00:00: 00:00 oral route 00 :00 every day at bedtime as needed temazepam 2019-0 2020- No 1{capsu Q1D take 1 [facility] 30 mg 5-13 08-21 le} capsule by [facility] capsule 00:00: 00:00 oral route 00 :00 every day at bedtime as needed temazepam 2019-0 2020- No 1{capsu Q1D take 1 [facility] 30 mg 5-13 08-21 le} capsule by [facility] capsule 00:00: 00:00 oral route 00 :00 every day at bedtime as needed temazepam 2019-0 2020- No 1{capsu Q1D take 1 [facility] 30 mg 5-13 08-21 le} capsule by [facility] capsule 00:00: 00:00 oral route 00 :00 every day at bedtime as needed temazepam 2019- 2020- No 1{capsu Q1D take 1 [facility] 30 mg 5-13 08-21 le} capsule by [facility] capsule 00:00: 00:00 oral route 00 :00 every day at bedtime as needed temazepam 2019-0 2020- No 1{capsu Q1D take 1 [facility] 30 mg 5-13 08-21 le} capsule by [facility] capsule 00:00: 00:00 oral route 00 :00 every day at bedtime as needed Klonopin 1 2020- No 1{table TID take 1 11/21/2019 [facility] mg tablet 5-13 06-30 t} tablet by [facility] 00:00: 00:00 oral route Ad[facility] from 00 :[facility], as needed he advised that patient filled medicatio n on 0 and is not due for fill, medicatio n not filled .--AG,RN Klonopin 1 2020- No 1{table TID take 1 11/21/2019 [facility] mg tablet 5-13 06-30 t} tablet by [facility] to [facility] 00:00: 00:00 oral route Adán from 00 :00 [facility], as needed he advised that patient filled medicatio n on 0 and is not due for fill, medicatio n not filled .--AG,RN Klonopin 1 2020-0 2020- No 1{table TID take 1 11/21/2019 [facility] mg tablet 5-13 06-30 t} tablet by [facility] to [facility] 00:00: 00:00 oral route Adán from 00 :00 [facility], as needed he advised that patient filled medicatio n on 0 and is not due for fill, medicatio n not filled .--AG,JOSETTE Mendoza 1 2020- No 1{table TID take 1 11/21/2019 [facility] mg tablet 5-13 06-30 t} tablet by [facility] to [facility] 00:00: 00:00 oral route Adán from 00 :00 [facility], as needed he advised that patient filled medicatio n on 0 and is not due for fill, medicatio n not filled .--AG,JOSETTE Mendoza 1 2019- No 1{table TID take 1 11/21/2019 [facility] mg tablet 5-13 06-30 t} tablet by [facility] to [facility] 00:00: 00:00 oral route Adán from 00 :00 [facility], as needed he advised that patient filled medicatio n on 0 and is not due for fill, medicatio n not filled .--AG,JOSETTE Mendoza 1 2019- No 1{table TID take 1 11/21/2019 [facility] mg tablet 5-13 06-30 t} tablet by [facility] to [facility] 00:00: 00:00 oral route Adán from 00 :00 [facility], as needed he advised that patient filled medicatio n on 0 and is not due for fill, medicatio n not filled .--AG,JOSETTE Mendoza 1 2020- No 1{table TID take 1 11/21/2019 [facility] mg tablet 5-13 06-30 t} tablet by [facility] to [facility] 00:00: 00:00 oral route Adán from 00 :00 [facility], as needed he advised that patient filled medicatio n on 0 and is not due for fill, medicatio n not filled .--AG,JOSETTE Mendoza 1 2020-0 2020- No 1{table TID take 1 11/21/2019 [facility] mg tablet 5-13 06-30 t} tablet by [facility] to [facility] 00:00: 00:00 oral route Adán from 00 :00 [facility], as needed he advised that patient filled medicatio n on 0 and is not due for fill, medicatio n not filled .--AG,JOSETTE Mendoza 1 2020- No 1{table TID take 1 11/21/2019 [facility] mg tablet 5-13 06-30 t} tablet by [facility] to [facility] 00:00: 00:00 oral route Adán from 00 :00 [facility], as needed he advised that patient filled medicatio n on 0 and is not due for fill, medicatio n not filled .--AG,JOSETTE Mendoza 1 2019- No 1{table TID take 1 11/21/2019 [facility] mg tablet 5-13 06-30 t} tablet by [facility] to [facility] 00:00: 00:00 oral route Adán from 00 :00 [facility], as needed he advised that patient filled medicatio n on 0 and is not due for fill, medicatio n not filled .--AG,JOSETTE Mendoza 1 2019- No 1{table TID take 1 11/21/2019 [facility] mg tablet 5-13 06-30 t} tablet by [facility] to [facility] 00:00: 00:00 oral route Adán from 00 :00 [facility] times [facility], as needed he advised that patient filled medicatio n on 0 and is not due for fill, medicatio n not filled .--AG,JOSETTE Mendoza 1 2020- No 1{table TID take 1 11/21/2019 [facility] mg tablet 5-13 06-30 t} tablet by [facility] to [facility] 00:00: 00:00 oral route Adán from 00 :00 [facility], as needed he advised that patient filled medicatio n on 0 and is not due for fill, medicatio n not filled .--AG,JOSETTE Mendoza 1 2020-0 2020- No 1{table TID take 1 11/21/2019 [facility] mg tablet 5-13 06-30 t} tablet by [facility] to [facility] 00:00: 00:00 oral route Adán from 00 :00 3 times [facility], as needed he advised that patient filled medicatio n on 0 and is not due for fill, medicatio n not filled .--AG,JOSETTE Mendoza 1 2020- No 1{table TID take 1 11/21/2019 [facility] mg tablet 5-13 06-30 t} tablet by [facility] to [facility] 00:00: 00:00 oral route Adán from 00 :00 3 times [facility], as needed he advised that patient filled medicatio n on 0 and is not due for fill, medicatio n not filled .--AG,JOSETTE Mendoza 1 2019- No 1{table TID take 1 11/21/2019 [facility] mg tablet 5-13 06-30 t} tablet by [facility] to [facility] 00:00: 00:00 oral route Adán from 00 :00 3 times [facility], as needed he advised that patient filled medicatio n on 0 and is not due for fill, medicatio n not filled .--AG,JOSETTE Mendoza 1 2019- No 1{table TID take 1 11/21/2019 [facility] mg tablet 5-13 06-30 t} tablet by [facility] to [facility] 00:00: 00:00 oral route Adán from 00 :00 [facility], as needed he advised that patient filled medicatio n on 0 and is not due for fill, medicatio n not filled .--AG,JOSETTE Mendoza 1 2020- No 1{table TID take 1 11/21/2019 [facility] mg tablet 5-13 06-30 t} tablet by [facility] to [facility] 00:00: 00:00 oral route Adán from 00 :00 [facility], as needed he advised that patient filled medicatio n on 0 and is not due for fill, medicatio n not filled .--AG,JOSETTE Mendoza 1 2020-0 2020- No 1{table TID take 1 11/21/2019 [facility] mg tablet 5-13 06-30 t} tablet by [facility] to [facility] 00:00: 00:00 oral route Adán from 00 :00 3 times [facility], as needed he advised that patient filled medicatio n on 0 and is not due for fill, medicatio n not filled .--AG,JOSETTE Mendoza 1 2020- No 1{table TID take 1 11/21/2019 [facility] mg tablet 5-13 06-30 t} tablet by [facility] to [facility] 00:00: 00:00 oral route Adán from 00 :00 [facility] times [facility], as needed he advised that patient filled medicatio n on 0 and is not due for fill, medicatio n not filled .--AG,JOSETTE Mendoza 1 2019- No 1{table TID take 1 11/21/2019 [facility] mg tablet 5-13 06-30 t} tablet by [facility] to [facility] 00:00: 00:00 oral route Adán from 00 :00 [facility], as needed he advised that patient filled medicatio n on 0 and is not due for fill, medicatio n not filled .--AG,JOSETTE Mendoza 1 2019- No 1{table TID take 1 11/21/2019 [facility] mg tablet 5-13 06-30 t} tablet by [facility] to [facility] 00:00: 00:00 oral route Adán from 00 :00 [facility], as needed he advised that patient filled medicatio n on 0 and is not due for fill, medicatio n not filled .--AG,JOSETTE Mendoza 1 2020- No 1{table TID take 1 11/21/2019 [facility] mg tablet 5-13 06-30 t} tablet by [facility] to [facility] 00:00: 00:00 oral route Adán from 00 :00 [facility], as needed he advised that patient filled medicatio n on 0 and is not due for fill, medicatio n not filled .--AG,JOSETTE Mendoza 1 2020-0 2020- No 1{table TID take 1 11/21/2019 [facility] mg tablet 5-13 06-30 t} tablet by [facility] to [facility] 00:00: 00:00 oral route Adán from 00 :00 [facility], as needed he advised that patient filled medicatio n on 0 and is not due for fill, medicatio n not filled .--AG,JOSETTE Mendoza 1 2020- No 1{table TID take 1 11/21/2019 [facility] mg tablet 5-13 06-30 t} tablet [facility] clinic 00:00: 00:00 oral route Ad[facility] from 00 :[facility] needed he advised that patient filled medicatio n on 0 and is not due for fill, medicatio n not filled .--AG,JOSETTE Mendoza 1 2019- No 1{table TID take 1 11/21/2019 [facility] mg tablet 5-13 06-30 t} tablet by Spoke to [facility] 00:00: 00:00 oral route Adán from 00 :[facility], as needed he advised that patient filled medicatio n on 0 and is not due for fill, medicatio n not filled .--AG,JOSETTE Mendoza 1 2019- No 1{table TID take 1 11/21/2019 [facility] mg tablet 5-13 06-30 t} tablet by Spoke to [facility] 00:00: 00:00 oral route Adán from 00 :[facility], as needed he advised that patient filled medicatio n on 0 and is not due for fill, medicatio n not filled .--AG,JOSETTE Mendoza 1 2020- No 1{table TID take 1 11/21/2019 [facility] mg tablet 5-13 06-30 t} tablet by Spoke to [facility] 00:00: 00:00 oral route Adán from 00 :[facility], as needed he advised that patient filled medicatio n on 0 and is not due for fill, medicatio n not filled .--AG,JOSETTE Mendoza 1 2020-0 2020- No 1{table TID take 1 11/21/2019 [facility] mg tablet 5-13 06-30 t} tablet by Spoke to [facility] 00:00: 00:00 oral route Adán from 00 :[facility], [facility] needed he advised that patient filled medicatio n on 0 and is not due for fill, medicatio n not filled .--AG,JOSETTE Mendoza 1 2020- No 1{table TID take 1 11/21/2019 [facility] mg tablet 5-13 06-30 t} tablet by Spoke to [facility] 00:00: 00:00 oral route Adán from 00 :[facility], as needed he advised that patient filled medicatio n on 0 and is not due for fill, medicatio n not filled .--AG,JOSETTE Mendoza 1 2019- No 1{table TID take 1 11/21/2019 [facility] mg tablet 5-13 06-30 t} tablet by Spoke to [facility] 00:00: 00:00 oral route Adán from 00 :[facility], as needed he advised that patient filled medicatio n on 0 and is not due for fill, medicatio n not filled .--AG,JOSETTE Mendoza 1 2019- No 1{table TID take 1 11/21/2019 [facility] mg tablet 5-13 06-30 t} tablet by Spoke to [facility] 00:00: 00:00 oral route Adán from 00 :[facility], as needed he advised that patient filled medicatio n on 0 and is not due for fill, medicatio n not filled .--AG,JOSETTE Mendoza 1 2020- No 1{table TID take 1 11/21/2019 [facility] mg tablet 5-13 06-30 t} tablet by Spoke to [facility] 00:00: 00:00 oral route Adán from 00 :[facility], as needed he advised that patient filled medicatio n on 0 and is not due for fill, medicatio n not filled .--AG,JOSETTE Mendoza 1 2020-0 2020- No 1{table TID take 1 11/21/2019 [facility] mg tablet 5-13 06-30 t} tablet by Spoke to [facility] 00:00: 00:00 oral route Adán from 00 :[facility], as needed he advised that patient filled medicatio n on 0 and is not due for fill, medicatio n not filled .--AG,JOSETTE Mendoza 1 2020- No 1{table TID take 1 11/21/2019 [facility] mg tablet 5-13 06-30 t} tablet by Spoke to [facility] 00:00: 00:00 oral route Adán from 00 :[facility], as needed he advised that patient filled medicatio n on 0 and is not due for fill, medicatio n not filled .--AG,JOSETTE Mendoza 1 2019- No 1{table TID take 1 11/21/2019 [facility] mg tablet 5-13 06-30 t} tablet by Spoke to [facility] 00:00: 00:00 oral route Adán from 00 :[facility], as needed he advised that patient filled medicatio n on 0 and is not due for fill, medicatio n not filled .--AG,JOSETTE Mendoza 1 2019- No 1{table TID take 1 11/21/2019 [facility] mg tablet 5-13 06-30 t} tablet by Spoke to [facility] 00:00: 00:00 oral route Adán from 00 :[facility], as needed he advised that patient filled medicatio n on 0 and is not due for fill, medicatio n not filled .--AG,JOSETTE Mendoza 1 2020- No 1{table TID take 1 11/21/2019 [facility] mg tablet 5-13 06-30 t} tablet by Spoke to [facility] 00:00: 00:00 oral route Adán from 00 :[facility], as needed he advised that patient filled medicatio n on 0 and is not due for fill, medicatio n not filled .--AG,JOSETTE Mendoza 1 2020- No 1{table TID take 1 11/21/2019 [facility] mg tablet 5-13 06-30 t} tablet by Spoke to [facility] 00:00: 00:00 oral route Adán from 00 :[facility], [facility] needed he advised that patient filled medicatio n on and is not due for fill, medicatio n not filled .--AG,RN temazepam 2020- No 1{capsu Q1D take 1 [facility] 30 mg 5-11 05-13 le} capsule by [facility] 00:00: 00:00 oral route 00 :00 every day at bedtime as needed temazepam 2020- No 1{capsu Q1D take 1 [facility] 30 mg 5-11 05-13 le} capsule by [facility] capsule 00:00: 00:00 oral route 00 :00 every day at bedtime as needed temazepam 2020- No 1{capsu Q1D take 1 [facility] 30 mg 5-11 05-13 le} capsule by [facility] 00:00: 00:00 oral route 00 :00 every day at bedtime as needed temazepam 2019- 2020- No 1{capsu Q1D take 1 [facility] 30 mg 5-11 05-13 le} capsule by [facility] capsule 00:00: 00:00 oral route 00 :00 every day at bedtime as needed temazepam 2019- 2020- No 1{capsu Q1D take 1 [facility] 30 mg 5-11 05-13 le} capsule by [facility] 00:00: 00:00 oral route 00 :00 every day at bedtime as needed temazepam 2019-0 2020- No 1{capsu Q1D take 1 [facility] 30 mg 5-11 05-13 le} capsule by [facility] capsule 00:00: 00:00 oral route 00 :00 every day at bedtime as needed temazepam 2020- No 1{capsu Q1D take 1 [facility] 30 mg 5-11 05-13 le} capsule by [facility] 00:00: 00:00 oral route 00 :00 every day at bedtime as needed temazepam 2019- 2020- No 1{capsu Q1D take 1 [facility] 30 mg 5-11 05-13 le} capsule by [facility] capsule 00:00: 00:00 oral route 00 :00 every day at bedtime as needed temazepam 2020-0 2020- No 1{capsu Q1D take 1 [facility] 30 mg 5-11 05-13 le} capsule by [facility] capsule 00:00: 00:00 oral route 00 :00 every day at bedtime as needed temazepam 2020-0 2020- No 1{capsu Q1D take 1 [facility] 30 mg 5-11 05-13 le} capsule by [facility] capsule 00:00: 00:00 oral route 00 :00 every day at bedtime as needed temazepam 2020-0 2020- No 1{capsu Q1D take 1 [facility] 30 mg 5-11 05-13 le} capsule by [facility] capsule 00:00: 00:00 oral route 00 :00 every day at bedtime as needed temazepam 2020-0 2020- No 1{capsu Q1D take 1 [facility] 30 mg 5-11 05-13 le} capsule by [facility] capsule 00:00: 00:00 oral route 00 :00 every day at bedtime as needed temazepam 2020-0 2020- No 1{capsu Q1D take 1 [facility] 30 mg 5-11 05-13 le} capsule by [facility] capsule 00:00: 00:00 oral route 00 :00 every day at bedtime as needed temazepam 2020-0 2020- No 1{capsu Q1D take 1 [facility] 30 mg 5-11 05-13 le} capsule by [facility] capsule 00:00: 00:00 oral route 00 :00 every day at bedtime as needed temazepam 2020-0 2020- No 1{capsu Q1D take 1 [facility] 30 mg 5-11 05-13 le} capsule by [facility] capsule 00:00: 00:00 oral route 00 :00 every day at bedtime as needed temazepam 2020-0 2020- No 1{capsu Q1D take 1 [facility] 30 mg 5-11 05-13 le} capsule by [facility] capsule 00:00: 00:00 oral route 00 :00 every day at bedtime as needed temazepam 2020-0 2020- No 1{capsu Q1D take 1 [facility] 30 mg 5-11 05-13 le} capsule by [facility] capsule 00:00: 00:00 oral route 00 :00 every day at bedtime as needed temazepam 2020-0 2020- No 1{capsu Q1D take 1 [facility] 30 mg 5-11 05-13 le} capsule by [facility] capsule 00:00: 00:00 oral route 00 :00 every day at bedtime as needed temazepam 2020-0 2020- No 1{capsu Q1D take 1 [facility] 30 mg 5-11 05-13 le} capsule by [facility] capsule 00:00: 00:00 oral route 00 :00 every day at bedtime as needed temazepam 2020-0 2020- No 1{capsu Q1D take 1 [facility] 30 mg 5-11 05-13 le} capsule by [facility] capsule 00:00: 00:00 oral route 00 :00 every day at bedtime as needed temazepam 2020-0 2020- No 1{capsu Q1D take 1 [facility] 30 mg 5-11 05-13 le} capsule by [facility] capsule 00:00: 00:00 oral route 00 :00 every day at bedtime as needed temazepam 2020-0 2020- No 1{capsu Q1D take 1 [facility] 30 mg 5-11 05-13 le} capsule by [facility] capsule 00:00: 00:00 oral route 00 :00 every day at bedtime as needed temazepam 2020-0 2020- No 1{capsu Q1D take 1 [facility] 30 mg 5-11 05-13 le} capsule by [facility] capsule 00:00: 00:00 oral route 00 :00 every day at bedtime as needed temazepam 2020-0 2020- No 1{capsu Q1D take 1 [facility] 30 mg 5-11 05-13 le} capsule by [facility] capsule 00:00: 00:00 oral route 00 :00 every day at bedtime as needed temazepam 2020-0 2020- No 1{capsu Q1D take 1 [facility] 30 mg 5-11 05-13 le} capsule by [facility] capsule 00:00: 00:00 oral route 00 :00 every day at bedtime as needed temazepam 2020-0 2020- No 1{capsu Q1D take 1 [facility] 30 mg 5-11 05-13 le} capsule by [facility] capsule 00:00: 00:00 oral route 00 :00 every day at bedtime as needed temazepam 2020-0 2020- No 1{capsu Q1D take 1 [facility] 30 mg 5-11 05-13 le} capsule by [facility] capsule 00:00: 00:00 oral route 00 :00 every day at bedtime as needed temazepam 2020-0 2020- No 1{capsu Q1D take 1 [facility] 30 mg 5-11 05-13 le} capsule by [facility] capsule 00:00: 00:00 oral route 00 :00 every day at bedtime as needed temazepam 2020-0 2020- No 1{capsu Q1D take 1 [facility] 30 mg 5-11 05-13 le} capsule by [facility] capsule 00:00: 00:00 oral route 00 :00 every day at bedtime as needed temazepam 2020-0 2020- No 1{capsu Q1D take 1 [facility] 30 mg 5-11 05-13 le} capsule by [facility] capsule 00:00: 00:00 oral route 00 :00 every day at bedtime as needed temazepam 2020-0 2020- No 1{capsu Q1D take 1 [facility] 30 mg 5-11 05-13 le} capsule by [facility] capsule 00:00: 00:00 oral route 00 :00 every day at bedtime as needed temazepam 2020-0 2020- No 1{capsu Q1D take 1 [facility] 30 mg 5-11 05-13 le} capsule by [facility] capsule 00:00: 00:00 oral route 00 :00 every day at bedtime as needed temazepam 2020-0 2020- No 1{capsu Q1D take 1 [facility] 30 mg 5-11 05-13 le} capsule by [facility] capsule 00:00: 00:00 oral route 00 :00 every day at bedtime as needed temazepam 2020-0 2020- No 1{capsu Q1D take 1 [facility] 30 mg 5-11 05-13 le} capsule by [facility] capsule 00:00: 00:00 oral route 00 :00 every day at bedtime as needed temazepam 2020-0 2020- No 1{capsu Q1D take 1 [facility] 30 mg 5-11 05-13 le} capsule by [facility] capsule 00:00: 00:00 oral route 00 :00 every day at bedtime as needed temazepam 2020-0 2020- No 1{capsu Q1D take 1 [facility] 30 mg 5-11 05-13 le} capsule by [facility] capsule 00:00: 00:00 oral route 00 :00 every day at bedtime as needed temazepam 2020-0 2020- No 1{capsu Q1D take 1 [facility] 30 mg 5-11 05-13 le} capsule by [facility] capsule 00:00: 00:00 oral route 00 :00 every day at bedtime as needed temazepam 2020-0 2020- No 1{capsu Q1D take 1 [facility] 30 mg 5-11 05-13 le} capsule by [facility] 00:00: 00:00 oral route 00 :00 every day at bedtime as needed tizanidine 2019-0 2020- No 1{table QID take 1 11/21/2019 [facility] 4 mg tablet 5-04 06-16 t} tablet by [facility] 00:00: 00:00 oral route apt for 00 :00 every 6 - further 8 hours as fills, needed not --AG,RN to exceed 3 doses in 24 hours as needed tizanidine 2019-0 2020- No 1{table QID take 1 11/21/2019 [facility] 4 mg tablet 5-04 06-16 t} tablet by [facility] 00:00: 00:00 oral route apt for 00 :00 every 6 - further 8 hours as fills, needed not --AG,RN to exceed 3 doses in 24 hours as needed tizanidine 2019-0 2020- No 1{table QID take 1 11/21/2019 [facility] 4 mg tablet 5-04 06-16 t} tablet by [facility] 00:00: 00:00 oral route apt for 00 :00 every 6 - further 8 hours as fills, needed not --AG,RN to exceed 3 doses in 24 hours as needed tizanidine 2019-0 2020- No 1{table QID take 1 11/21/2019 [facility] 4 mg tablet 5-04 06-16 t} tablet by [facility] 00:00: 00:00 oral route apt for 00 :00 every 6 - further 8 hours as fills, needed not --AG,RN to exceed 3 doses in 24 hours as needed tizanidine 2019-0 2020- No 1{table QID take 1 11/21/2019 [facility] 4 mg tablet 5-04 06-16 t} tablet by [facility] 00:00: 00:00 oral route apt for 00 :00 every 6 - further 8 hours as fills, needed not --AG,RN to exceed 3 doses in 24 hours as needed tizanidine 2020-0 2020- No 1{table QID take 1 11/21/2019 [facility] 4 mg tablet 5-04 06-16 t} tablet by [facility] 00:00: 00:00 oral route apt for 00 :00 every 6 - further 8 hours as fills, needed not --AG,RN to exceed 3 doses in 24 hours as needed tizanidine 2019-0 2020- No 1{table QID take 1 11/21/2019 [facility] 4 mg tablet 5-04 06-16 t} tablet by [facility] 00:00: 00:00 oral route apt for 00 :00 every 6 - further 8 hours as fills, needed not --AG,RN to exceed 3 doses in 24 hours as needed tizanidine 2019-0 2020- No 1{table QID take 1 11/21/2019 [facility] 4 mg tablet 5-04 06-16 t} tablet by [facility] 00:00: 00:00 oral route apt for 00 :00 every 6 - further 8 hours as fills, needed not --AG,RN to exceed 3 doses in 24 hours as needed tizanidine 2019-0 2020- No 1{table QID take 1 11/21/2019 [facility] 4 mg tablet 5-04 06-16 t} tablet by [facility] 00:00: 00:00 oral route apt for 00 :00 every 6 - further 8 hours as fills, needed not --AG,RN to exceed 3 doses in 24 hours as needed tizanidine 2020-0 2020- No 1{table QID take 1 11/21/2019 [facility] 4 mg tablet 5-04 06-16 t} tablet by [facility] 00:00: 00:00 oral route apt for 00 :00 every 6 - further 8 hours as fills, needed not --AG,RN to exceed 3 doses in 24 hours as needed tizanidine 2019-0 2020- No 1{table QID take 1 11/21/2019 [facility] 4 mg tablet 5-04 06-16 t} tablet by [facility] 00:00: 00:00 oral route apt for 00 :00 every 6 - further 8 hours as fills, needed not --AG,RN to exceed 3 doses in 24 hours as needed tizanidine 2020-0 2020- No 1{table QID take 1 11/21/2019 [facility] 4 mg tablet 5-04 06-16 t} tablet by [facility] 00:00: 00:00 oral route apt for 00 :00 every 6 - further 8 hours as fills, needed not --AG,RN to exceed 3 doses in 24 hours as needed tizanidine 2019-0 2020- No 1{table QID take 1 11/21/2019 [facility] 4 mg tablet 5-04 06-16 t} tablet by [facility] 00:00: 00:00 oral route apt for 00 :00 every 6 - further 8 hours as fills, needed not --AG,RN to exceed 3 doses in 24 hours as needed tizanidine 2019-0 2020- No 1{table QID take 1 11/21/2019 [facility] 4 mg tablet 5-04 06-16 t} tablet by [facility] 00:00: 00:00 oral route apt for 00 :00 every 6 - further 8 hours as fills, needed not --AG,RN to exceed 3 doses in 24 hours as needed tizanidine 2019-0 2020- No 1{table QID take 1 11/21/2019 [facility] 4 mg tablet 5-04 06-16 t} tablet by [facility] 00:00: 00:00 oral route apt for 00 :00 every 6 - further 8 hours as fills, needed not --AG,RN to exceed 3 doses in 24 hours as needed tizanidine 2020-0 2020- No 1{table QID take 1 11/21/2019 [facility] 4 mg tablet 5-04 06-16 t} tablet by [facility] 00:00: 00:00 oral route apt for 00 :00 every 6 - further 8 hours as fills, needed not --AG,RN to exceed 3 doses in 24 hours as needed tizanidine 2020-0 2020- No 1{table QID take 1 11/21/2019 [facility] 4 mg tablet 5-04 06-16 t} tablet by [facility] 00:00: 00:00 oral route apt for 00 :00 every 6 - further 8 hours as fills, needed not --AG,RN to exceed 3 doses in 24 hours as needed tizanidine 2020-0 2020- No 1{table QID take 1 11/21/2019 [facility] 4 mg tablet 5-04 06-16 t} tablet by [facility] 00:00: 00:00 oral route apt for 00 :00 every 6 - further 8 hours as fills, needed not --AG,RN to exceed 3 doses in 24 hours as needed tizanidine 2019-0 2020- No 1{table QID take 1 11/21/2019 [facility] 4 mg tablet 5-04 06-16 t} tablet by [facility] 00:00: 00:00 oral route apt for 00 :00 every 6 - further 8 hours as fills, needed not --AG,RN to exceed 3 doses in 24 hours as needed tizanidine 2019-0 2020- No 1{table QID take 1 11/21/2019 [facility] 4 mg tablet 5-04 06-16 t} tablet by [facility] 00:00: 00:00 oral route apt for 00 :00 every 6 - further 8 hours as fills, needed not --AG,RN to exceed 3 doses in 24 hours as needed tizanidine 2019-0 2020- No 1{table QID take 1 11/21/2019 [facility] 4 mg tablet 5-04 06-16 t} tablet by [facility] 00:00: 00:00 oral route apt for 00 :00 every 6 - further 8 hours as fills, needed not --AG,RN to exceed 3 doses in 24 hours as needed tizanidine 2020-0 2020- No 1{table QID take 1 11/21/2019 [facility] 4 mg tablet 5-04 06-16 t} tablet by [facility] 00:00: 00:00 oral route apt for 00 :00 every 6 - further 8 hours as fills, needed not --AG,RN to exceed 3 doses in 24 hours as needed tizanidine 2020-0 2020- No 1{table QID take 1 11/21/2019 [facility] 4 mg tablet 5-04 06-16 t} tablet by [facility] 00:00: 00:00 oral route apt for 00 :00 every 6 - further 8 hours as fills, needed not --AG,RN to exceed 3 doses in 24 hours as needed tizanidine 2019-0 2020- No 1{table QID take 1 11/21/2019 [facility] 4 mg tablet 5-04 06-16 t} tablet by [facility] 00:00: 00:00 oral route apt for 00 :00 every 6 - further 8 hours as fills, needed not --AG,RN to exceed 3 doses in 24 hours as needed tizanidine 2019-0 2020- No 1{table QID take 1 11/21/2019 [facility] 4 mg tablet 5-04 06-16 t} tablet by [facility] 00:00: 00:00 oral route apt for 00 :00 every 6 - further 8 hours as fills, needed not --AG,RN to exceed 3 doses in 24 hours as needed tizanidine 2019- 2020- No 1{table QID take 1 11/21/2019 [facility] 4 mg tablet 5-04 06-16 t} tablet by [facility] 00:00: 00:00 oral route apt for 00 :00 every 6 - further 8 hours as fills, needed not --AG,RN to exceed 3 doses in 24 hours as needed tizanidine 2019- 2020- No 1{table QID take 1 11/21/2019 [facility] 4 mg tablet 5-04 06-16 t} tablet by [facility] 00:00: 00:00 oral route apt for 00 :00 every 6 - further 8 hours as fills, needed not --AG,RN to exceed 3 doses in 24 hours as needed tizanidine 2019-0 2020- No 1{table QID take 1 11/21/2019 [facility] 4 mg tablet 5-04 06-16 t} tablet by [facility] 00:00: 00:00 oral route apt for 00 :00 every 6 - further 8 hours as fills, needed not --AG,RN to exceed 3 doses in 24 hours as needed tizanidine 2019-0 2020- No 1{table QID take 1 11/21/2019 [facility] 4 mg tablet 5-04 06-16 t} tablet by [facility] 00:00: 00:00 oral route apt for 00 :00 every 6 - further 8 hours as fills, needed not --AG,RN to exceed 3 doses in 24 hours as needed tizanidine 2019-0 2020- No 1{table QID take 1 11/21/2019 [facility] 4 mg tablet 5-04 06-16 t} tablet by [facility] 00:00: 00:00 oral route apt for 00 :00 every 6 - further 8 hours as fills, needed not --AG,RN to exceed 3 doses in 24 hours as needed tizanidine 2019- 2020- No 1{table QID take 1 11/21/2019 [facility] 4 mg tablet 5-04 06-16 t} tablet by [facility] 00:00: 00:00 oral route apt for 00 :00 every 6 - further 8 hours as fills, needed not --AG,RN to exceed 3 doses in 24 hours as needed tizanidine 2019- 2020- No 1{table QID take 1 11/21/2019 [facility] 4 mg tablet 5-04 06-16 t} tablet by [facility] 00:00: 00:00 oral route apt for 00 :00 every 6 - further 8 hours as fills, needed not --AG,RN to exceed 3 doses in 24 hours as needed tizanidine 2019- 2020- No 1{table QID take 1 11/21/2019 [facility] 4 mg tablet 5-04 06-16 t} tablet by [facility] 00:00: 00:00 oral route apt for 00 :00 every 6 - further 8 hours as fills, needed not --AG,RN to exceed 3 doses in 24 hours as needed tizanidine 2019- 2020- No 1{table QID take 1 11/21/2019 [facility] 4 mg tablet 5-04 06-16 t} tablet by [facility] 00:00: 00:00 oral route apt for 00 :00 every 6 - further 8 hours as fills, needed not --AG,RN to exceed 3 doses in 24 hours as needed tizanidine 2019-0 2020- No 1{table QID take 1 11/21/2019 [facility] 4 mg tablet 5-04 06-16 t} tablet by [facility] 00:00: 00:00 oral route apt for 00 :00 every 6 - further 8 hours as fills, needed not --AG,RN to exceed 3 doses in 24 hours as needed tizanidine 2020- No 1{table QID take 1 11/21/2019 [facility] 4 mg tablet 5-04 06-16 t} tablet by [facility] 00:00: 00:00 oral route apt for 00 :00 every 6 - further 8 hours as fills, needed not --AG,RN to exceed 3 doses in 24 hours as needed tizanidine 2020- No 1{table QID take 1 11/21/2019 [facility] 4 mg tablet 5-04 06-16 t} tablet by [facility] 00:00: 00:00 oral route apt for 00 :00 every 6 - further 8 hours as fills, needed not --AG,RN to exceed 3 doses in 24 hours as needed tizanidine 2020- No 1{table QID take 1 11/21/2019 [facility] 4 mg tablet 5-04 06-16 t} tablet by [facility] 00:00: 00:00 oral route apt for 00 :00 every 6 - further 8 hours as fills, needed not --AG,RN to exceed 3 doses in 24 hours as needed Klonopin 1 2020- No 1{table TID take 1 11/21/2019 [facility] mg tablet 5-04 05-13 t} tablet by Spoke to [facility] 00:00: 00:00 oral route Ad[facility] from 00 :[facility], as needed he advised that patient filled medicatio n on 0 and is not due for fill, medicatio n not filled .--AG,RN Kelly 1 2020- No 1{table TID take 1 11/21/2019 [facility] mg tablet 5-04 05-13 t} [facility] 00:00: 00:00 oral route Adán from 00 :[facility], as needed he advised that patient filled medicatio n on 0 and is not due for fill, medicatio n not filled .--AG,JOSETTE Pembertonpin 1 2020- No 1{table TID take 1 11/21/2019 [facility] mg tablet 5-04 05-13 t} tablet by Spoke to [facility] 00:00: 00:00 oral route Adán from 00 :[facility], as needed he advised that patient filled medicatio n on 0 and is not due for fill, medicatio n not filled .--AG,JOSETTE Mendoza 1 2020- No 1{table TID take 1 11/21/2019 [facility] mg tablet 5-04 05-13 t} tablet by Spoke to [facility] 00:00: 00:00 oral route Adán from 00 :[facility], as needed he advised that patient filled medicatio n on 0 and is not due for fill, medicatio n not filled .--AG,JOSETTE Mendoza 1 2019- No 1{table TID take 1 11/21/2019 [facility] mg tablet 5-04 05-13 t} tablet by Spoke to [facility] 00:00: 00:00 oral route Adán from 00 :[facility], as needed he advised that patient filled medicatio n on 0 and is not due for fill, medicatio n not filled .--AG,JOSETTE Mendoza 1 2020- No 1{table TID take 1 11/21/2019 [facility] mg tablet 5-04 05-13 t} tablet by Spoke to [facility] 00:00: 00:00 oral route Adán from 00 :00 [facility], as needed he advised that patient filled medicatio n on 0 and is not due for fill, medicatio n not filled .--AG,JOSETTE Mendoza 1 2019- No 1{table TID take 1 11/21/2019 [facility] mg tablet 5-04 05-13 t} tablet by Spoke to [facility] 00:00: 00:00 oral route Adán from 00 :00 [facility], as needed he advised that patient filled medicatio n on 0 and is not due for fill, medicatio n not filled .--AG,JOSETTE Mendoza 1 2020- No 1{table TID take 1 11/21/2019 [facility] mg tablet 5-04 05-13 t} tablet by Spoke to [facility] 00:00: 00:00 oral route Adán from 00 :00 [facility], as needed he advised that patient filled medicatio n on 0 and is not due for fill, medicatio n not filled .--AG,JOSETTE Mendoza 1 2020- No 1{table TID take 1 11/21/2019 [facility] mg tablet 5-04 05-13 t} tablet by Spoke to [facility] 00:00: 00:00 oral route Adán from 00 :[facility], as needed he advised that patient filled medicatio n on 0 and is not due for fill, medicatio n not filled .--AG,JOSETTE Mendoza 1 2019- No 1{table TID take 1 11/21/2019 [facility] mg tablet 5-04 05-13 t} tablet by Spoke to [facility] 00:00: 00:00 oral route Adán from 00 :00 [facility], as needed he advised that patient filled medicatio n on 0 and is not due for fill, medicatio n not filled .--AG,JOSETTE Mendoza 1 2020- No 1{table TID take 1 11/21/2019 [facility] mg tablet 5-04 05-13 t} tablet by Spoke to [facility] 00:00: 00:00 oral route Adán from 00 :00 [facility], as needed he advised that patient filled medicatio n on 0 and is not due for fill, medicatio n not filled .--AG,JOSETTE Mendoza 1 2019- No 1{table TID take 1 11/21/2019 [facility] mg tablet 5-04 05-13 t} tablet by Spoke to [facility] 00:00: 00:00 oral route Adán from 00 :[facility] pharmacy, as needed he advised that patient filled medicatio n on 0 and is not due for fill, medicatio n not filled .--AG,JOSETTE Mendoza 1 2020- No 1{table TID take 1 11/21/2019 [facility] mg tablet 5-04 05-13 t} tablet by [facility] to [facility] 00:00: 00:00 oral route Ad[facility] from 00 :00 [facility], as needed he advised that patient filled medicatio n on 0 and is not due for fill, medicatio n not filled .--AG,JOSETTE Mendoza 1 2020- No 1{table TID take 1 11/21/2019 [facility] mg tablet 5-04 05-13 t} tablet by [facility] to [facility] 00:00: 00:00 oral route Adán from 00 :00 [facility], as needed he advised that patient filled medicatio n on 0 and is not due for fill, medicatio n not filled .--AG,JOSETTE Mendoza 1 2019- No 1{table TID take 1 11/21/2019 [facility] mg tablet 5-04 05-13 t} tablet by [facility] to [facility] 00:00: 00:00 oral route Adán from 00 :00 [facility], as needed he advised that patient filled medicatio n on 0 and is not due for fill, medicatio n not filled .--AG,JOSETTE Mendoza 1 2020- No 1{table TID take 1 11/21/2019 [facility] mg tablet 5-04 05-13 t} tablet by [facility] to [facility] 00:00: 00:00 oral route Adán from 00 :00 [facility], as needed he advised that patient filled medicatio n on 0 and is not due for fill, medicatio n not filled .--AG,JOSETTE Mendoza 1 2019- No 1{table TID take 1 11/21/2019 [facility] mg tablet 5-04 05-13 t} tablet by [facility] to [facility] 00:00: 00:00 oral route Adán from 00 :00 [facility], as needed he advised that patient filled medicatio n on 0 and is not due for fill, medicatio n not filled .--AG,JOSETTE Mendoza 1 2020- No 1{table TID take 1 11/21/2019 [facility] mg tablet 5-04 05-13 t} tablet by [facility] to [facility] 00:00: 00:00 oral route Adán from 00 :00 [facility], as needed he advised that patient filled medicatio n on 0 and is not due for fill, medicatio n not filled .--AG,JOSETTE Mendoza 1 2020- No 1{table TID take 1 11/21/2019 [facility] mg tablet 5-04 05-13 t} tablet by [facility] to [facility] 00:00: 00:00 oral route Adán from 00 :00 [facility], as needed he advised that patient filled medicatio n on 0 and is not due for fill, medicatio n not filled .--AG,JOSETTE Mendoza 1 2019- No 1{table TID take 1 11/21/2019 [facility] mg tablet 5-04 05-13 t} tablet by [facility] to [facility] 00:00: 00:00 oral route Adán from 00 :00 [facility], as needed he advised that patient filled medicatio n on 0 and is not due for fill, medicatio n not filled .--AG,JOSETTE Mendoza 1 2020- No 1{table TID take 1 11/21/2019 [facility] mg tablet 5-04 05-13 t} tablet by [facility] to [facility] 00:00: 00:00 oral route Adán from 00 :00 [facility], as needed he advised that patient filled medicatio n on 0 and is not due for fill, medicatio n not filled .--AG,JOSETTE Mendoza 1 2019- No 1{table TID take 1 11/21/2019 [facility] mg tablet 5-04 05-13 t} tablet by [facility] to [facility] 00:00: 00:00 oral route Adán from 00 :00 [facility], as needed he advised that patient filled medicatio n on 0 and is not due for fill, medicatio n not filled .--AG,JOSETTE Mendoza 1 2020- No 1{table TID take 1 11/21/2019 [facility] mg tablet 5-04 05-13 t} tablet by [facility] to [facility] 00:00: 00:00 oral route Adán from 00 :00 [facility], as needed he advised that patient filled medicatio n on 0 and is not due for fill, medicatio n not filled .--AG,JOSETTE Mendoza 1 2020- No 1{table TID take 1 11/21/2019 [facility] mg tablet 5-04 05-13 t} tablet by [facility] to [facility] 00:00: 00:00 oral route Adán from 00 :00 [facility], as needed he advised that patient filled medicatio n on 0 and is not due for fill, medicatio n not filled .--AG,JOSETTE Mendoza 1 2019- No 1{table TID take 1 11/21/2019 [facility] mg tablet 5-04 05-13 t} tablet by [facility] to [facility] 00:00: 00:00 oral route Adán from 00 :00 [facility] times [facility], as needed he advised that patient filled medicatio n on 0 and is not due for fill, medicatio n not filled .--AG,JOSETTE Mendoza 1 2020- No 1{table TID take 1 11/21/2019 [facility] mg tablet 5-04 05-13 t} tablet by [facility] to [facility] 00:00: 00:00 oral route Adán from 00 :00 [facility], as needed he advised that patient filled medicatio n on 0 and is not due for fill, medicatio n not filled .--AG,JOSETTE Mendoza 1 2019- No 1{table TID take 1 11/21/2019 [facility] mg tablet 5-04 05-13 t} tablet by [facility] to [facility] 00:00: 00:00 oral route Adán from 00 :00 [facility], as needed he advised that patient filled medicatio n on 0 and is not due for fill, medicatio n not filled .--AG,JOSETTE Mendoza 1 2020- No 1{table TID take 1 11/21/2019 [facility] mg tablet 5-04 05-13 t} tablet by [facility] to [facility] 00:00: 00:00 oral route Adán from 00 :00 [facility], as needed he advised that patient filled medicatio n on 0 and is not due for fill, medicatio n not filled .--AG,JOSETTE Mendoza 1 2020- No 1{table TID take 1 11/21/2019 [facility] mg tablet 5-04 05-13 t} tablet by [facility] to [facility] 00:00: 00:00 oral route Adán from 00 :00 [facility], as needed he advised that patient filled medicatio n on 0 and is not due for fill, medicatio n not filled .--AG,JOSETTE Mendoza 1 2019- No 1{table TID take 1 11/21/2019 [facility] mg tablet 5-04 05-13 t} tablet by [facility] to [facility] 00:00: 00:00 oral route Adán from 00 :00 [facility], as needed he advised that patient filled medicatio n on 0 and is not due for fill, medicatio n not filled .--AG,JOSETTE Mendoza 1 2020- No 1{table TID take 1 11/21/2019 [facility] mg tablet 5-04 05-13 t} tablet by [facility] to [facility] 00:00: 00:00 oral route Adán from 00 :00 [facility], as needed he advised that patient filled medicatio n on 0 and is not due for fill, medicatio n not filled .--AG,JOSETTE Mendoza 1 2019- No 1{table TID take 1 11/21/2019 [facility] mg tablet 5-04 05-13 t} tablet by [facility] to [facility] 00:00: 00:00 oral route Adán from 00 :00 [facility], as needed he advised that patient filled medicatio n on 0 and is not due for fill, medicatio n not filled .--AG,JOSETTE Mendoza 1 2020- No 1{table TID take 1 11/21/2019 [facility] mg tablet 5-04 05-13 t} tablet by [facility] to [facility] 00:00: 00:00 oral route Adán from 00 :00 [facility], as needed he advised that patient filled medicatio n on 0 and is not due for fill, medicatio n not filled .--AG,JOSETTE Mendoza 1 2020- No 1{table TID take 1 11/21/2019 [facility] mg tablet 5-04 05-13 t} tablet by [facility] to [facility] 00:00: 00:00 oral route Adán from 00 :00 [facility] times [facility], as needed he advised that patient filled medicatio n on 0 and is not due for fill, medicatio n not filled .--AG,JOSETTE Mendoza 1 2019- No 1{table TID take 1 11/21/2019 [facility] mg tablet 5-04 05-13 t} tablet by [facility] to [facility] 00:00: 00:00 oral route Adán from 00 :00 [facility], as needed he advised that patient filled medicatio n on 0 and is not due for fill, medicatio n not filled .--AG,JOSETTE Mendoza 1 2020- No 1{table TID take 1 11/21/2019 [facility] mg tablet 5-04 05-13 t} tablet by [facility] to [facility] 00:00: 00:00 oral route Adán from 00 :00 [facility], as needed he advised that patient filled medicatio n on 0 and is not due for fill, medicatio n not filled .--AG,JOSETTE Mendoza 1 2019- No 1{table TID take 1 11/21/2019 [facility] mg tablet 5-04 05-13 t} tablet by [facility] to [facility] 00:00: 00:00 oral route Adán from 00 :00 [facility], as needed he advised that patient filled medicatio n on 0 and is not due for fill, medicatio n not filled .--AG,JOSETTE Mendoza 1 2020- No 1{table TID take 1 11/21/2019 [facility] mg tablet 5-04 05-13 t} tablet by [facility] to [facility] 00:00: 00:00 oral route Adán from 00 :00 [facility], as needed he advised that patient filled medicatio n on and is not due for fill, medicatio n not filled .--LEONIE,RN ProAir HFA 2020- No 1{puff} Q4H inhale 1 [facility] 90 4-16 05-26 puff by [facility] 00:00: 00:00 inhalation on aerosol 00 :00 route inhaler every 4 hours as needed ProAir HFA 2019- No 1{puff} Q4H inhale 1 [facility] 90 4-16 05-26 puff by [facility] 00:00: 00:00 inhalation on aerosol 00 :00 route inhaler every 4 hours as needed ProAir HFA 2019- No 1{puff} Q4H inhale 1 [facility] 90 4-16 05-26 puff by [facility] 00:00: 00:00 inhalation on aerosol 00 :00 route inhaler every 4 hours as needed ProAir HFA 2019- No 1{puff} Q4H inhale 1 [facility] 90 4-16 05-26 puff by [facility] 00:00: 00:00 inhalation on aerosol 00 :00 route inhaler every 4 hours as needed ProAir HFA 2019- No 1{puff} Q4H inhale 1 [facility] 90 4-16 05-26 puff by [facility] 00:00: 00:00 inhalation on aerosol 00 :00 route inhaler every 4 hours as needed ProAir HFA 2020- No 1{puff} Q4H inhale 1 [facility] 90 4-16 05-26 puff by [facility] 00:00: 00:00 inhalation on aerosol 00 :00 route inhaler every 4 hours as needed ProAir HFA 2019- 2020- No 1{puff} Q4H inhale 1 [facility] 90 4-16 05-26 puff by [facility] 00:00: 00:00 inhalation on aerosol 00 :00 route inhaler every 4 hours as needed ProAir HFA 2020-0 2020- No 1{puff} Q4H inhale 1 [facility] 90 4-16 05-26 puff by [facility] 00:00: 00:00 inhalation on aerosol 00 :00 route inhaler every 4 hours as needed ProAir HFA 2019- No 1{puff} Q4H inhale 1 [facility] 90 4-16 05-26 puff by [facility] 00:00: 00:00 inhalation on aerosol 00 :00 route inhaler every 4 hours as needed ProAir HFA 2019- No 1{puff} Q4H inhale 1 [facility] 90 4-16 05-26 puff by [facility] 00:00: 00:00 inhalation on aerosol 00 :00 route inhaler every 4 hours as needed ProAir HFA 2019- No 1{puff} Q4H inhale 1 [facility] 90 4-16 05-26 puff by [facility] 00:00: 00:00 inhalation on aerosol 00 :00 route inhaler every 4 hours as needed ProAir HFA 2019- No 1{puff} Q4H inhale 1 [facility] 90 4-16 05-26 puff by [facility] 00:00: 00:00 inhalation on aerosol 00 :00 route inhaler every 4 hours as needed ProAir HFA 2019- No 1{puff} Q4H inhale 1 [facility] 90 4-16 05-26 puff by [facility] 00:00: 00:00 inhalation on aerosol 00 :00 route inhaler every 4 hours as needed ProAir HFA 2019- No 1{puff} Q4H inhale 1 [facility] 90 4-16 05-26 puff by [facility] 00:00: 00:00 inhalation on aerosol 00 :00 route inhaler every 4 hours as needed ProAir HFA 2019-2019- No 1{puff} Q4H inhale 1 [facility] 4-16 05-26 [facility] by [facility] 00:00: 00:00 inhalation on aerosol 00 :00 route inhaler every 4 hours as needed ProAir HFA 2019- No 1{puff} Q4H inhale 1 [facility] 90 4-16 05-26 puff by [facility] 00:00: 00:00 inhalation on aerosol 00 :00 route inhaler every 4 hours as needed ProAir HFA 2020- No 1{puff} Q4H inhale 1 [facility] 90 4-16 05-26 puff by [facility] 00:00: 00:00 inhalation on aerosol 00 :00 route inhaler every 4 hours as needed ProAir HFA 2020- No 1{puff} Q4H inhale 1 [facility] 90 4-16 05-26 puff by [facility] 00:00: 00:00 inhalation on aerosol 00 :00 route inhaler every 4 hours as needed ProAir HFA 2019- No 1{puff} Q4H inhale 1 [facility] 90 4-16 05-26 puff by [facility] 00:00: 00:00 inhalation on aerosol 00 :00 route inhaler every 4 hours as needed ProAir HFA 2019- No 1{puff} Q4H inhale 1 [facility] 90 4-16 05-26 puff by [facility] 00:00: 00:00 inhalation on aerosol 00 :00 route inhaler every 4 hours as needed ProAir HFA 2019- No 1{puff} Q4H inhale 1 [facility] 90 4-16 05-26 puff by [facility] 00:00: 00:00 inhalation on aerosol 00 :00 route inhaler every 4 hours as needed ProAir HFA 2019- No 1{puff} Q4H inhale 1 [facility] 90 4-16 05-26 puff by [facility] 00:00: 00:00 inhalation on aerosol 00 :00 route inhaler every 4 hours as needed ProAir HFA 2019- 2020- No 1{puff} Q4H inhale 1 [facility] 90 4-16 05-26 puff by [facility] 00:00: 00:00 inhalation on aerosol 00 :00 route inhaler every 4 hours as needed ProAir HFA 2019- No 1{puff} Q4H inhale 1 [facility] 90 4-16 05-26 puff by [facility] 00:00: 00:00 inhalation on aerosol 00 :00 route inhaler every 4 hours as needed ProAir HFA 2019- 2020- No 1{puff} Q4H inhale 1 [facility] 90 4-16 05-26 puff by [facility] 00:00: 00:00 inhalation on aerosol 00 :00 route inhaler every 4 hours as needed ProAir HFA 2020- No 1{puff} Q4H inhale 1 [facility] 90 4-16 05-26 puff by [facility] 00:00: 00:00 inhalation on aerosol 00 :00 route inhaler every 4 hours as needed ProAir HFA 2019- 2020- No 1{puff} Q4H inhale 1 [facility] 90 4-16 05-26 puff by [facility] 00:00: 00:00 inhalation on aerosol 00 :00 route inhaler every 4 hours as needed ProAir HFA 2019-2019- No 1{puff} Q4H inhale 1 [facility] 90 4-16 05-26 puff by [facility] 00:00: 00:00 inhalation on aerosol 00 :00 route inhaler every 4 hours as needed ProAir HFA 2019-2019- No 1{puff} Q4H inhale 1 [facility] 90 4-16 05-26 puff by [facility] 00:00: 00:00 inhalation on aerosol 00 :00 route inhaler every 4 hours as needed ProAir HFA 2019- No 1{puff} Q4H inhale 1 [facility] 90 4-16 05-26 puff by [facility] 00:00: 00:00 inhalation on aerosol 00 :00 route inhaler every 4 hours as needed ProAir HFA 2019- 2020- No 1{puff} Q4H inhale 1 [facility] 90 4-16 05-26 puff by [facility] 00:00: 00:00 inhalation on aerosol 00 :00 route inhaler every 4 hours as needed ProAir HFA 2020- 2020- No 1{puff} Q4H inhale 1 [facility] 90 4-16 05-26 puff by [facility] 00:00: 00:00 inhalation on aerosol 00 :00 route inhaler every 4 hours as needed ProAir HFA 2020-0 2020- No 1{puff} Q4H inhale 1 [facility] 90 4-16 05-26 puff by [facility] 00:00: 00:00 inhalation on aerosol 00 :00 route inhaler every 4 hours as needed ProAir HFA 2020-0 2020- No 1{puff} Q4H inhale 1 [facility] 90 4-16 05-26 puff by [facility] 00:00: 00:00 inhalation on aerosol 00 :00 route inhaler every 4 hours as needed ProAir HFA 2020-0 2020- No 1{puff} Q4H inhale 1 [facility] 90 4-16 05-26 puff by [facility] 00:00: 00:00 inhalation on aerosol 00 :00 route inhaler every 4 hours as needed ProAir HFA 2020-0 2020- No 1{puff} Q4H inhale 1 [facility] 90 4-16 05-26 puff by [facility] 00:00: 00:00 inhalation on aerosol 00 :00 route inhaler every 4 hours as needed ProAir HFA 2019-0 2020- No 1{puff} Q4H inhale 1 [facility] 90 4-16 05-26 puff by [facility] 00:00: 00:00 inhalation on aerosol 00 :00 route inhaler every 4 hours as needed ProAir HFA 2019-0 2020- No 1{puff} Q4H inhale 1 [facility] 90 4-16 05-26 puff by [facility] 00:00: 00:00 inhalation on aerosol 00 :00 route inhaler every 4 hours as needed meloxicam 2019-0 2020- No 2{table QD take 2 [facility] 7.5 mg 4- 08-21 t} tablet by [facility] tablet 00:00: 00:00 oral route 00 :00 every day as needed meloxicam 2019-0 2020- No 2{table QD take 2 [facility] 7.5 mg 4-07 08-21 t} tablet by [facility] tablet 00:00: 00:00 oral route 00 :00 every day as needed meloxicam 2019-0 2020- No 2{table QD take 2 [facility] 7.5 mg 4-07 08-21 t} tablet by [facility] tablet 00:00: 00:00 oral route 00 :00 every day as needed meloxicam 2020-0 2020- No 2{table QD take 2 [facility] 7.5 mg 4-07 08-21 t} tablet by [facility] tablet 00:00: 00:00 oral route 00 :00 every day as needed meloxicam 2020-0 2020- No 2{table QD take 2 [facility] 7.5 mg 4-07 08-21 t} tablet by [facility] tablet 00:00: 00:00 oral route 00 :00 every day as needed meloxicam 2020-0 2020- No 2{table QD take 2 [facility] 7.5 mg 4-07 08-21 t} tablet by [facility] tablet 00:00: 00:00 oral route 00 :00 every day as needed meloxicam 2020-0 2020- No 2{table QD take 2 [facility] 7.5 mg 4-07 08-21 t} tablet by [facility] tablet 00:00: 00:00 oral route 00 :00 every day as needed meloxicam 2020-0 2020- No 2{table QD take 2 [facility] 7.5 mg 4-07 08-21 t} tablet by [facility] tablet 00:00: 00:00 oral route 00 :00 every day as needed meloxicam 2020-0 2020- No 2{table QD take 2 [facility] 7.5 mg 4-07 08-21 t} tablet by [facility] tablet 00:00: 00:00 oral route 00 :00 every day as needed meloxicam 2020-0 2020- No 2{table QD take 2 [facility] 7.5 mg 4-07 08-21 t} tablet by [facility] tablet 00:00: 00:00 oral route 00 :00 every day as needed meloxicam 2020-0 2020- No 2{table QD take 2 [facility] 7.5 mg 4-07 08-21 t} tablet by [facility] tablet 00:00: 00:00 oral route 00 :00 every day as needed meloxicam 2020-0 2020- No 2{table QD take 2 [facility] 7.5 mg 4-07 08-21 t} tablet by [facility] tablet 00:00: 00:00 oral route 00 :00 every day as needed meloxicam 2020-0 2020- No 2{table QD take 2 [facility] 7.5 mg 4-07 08-21 t} tablet by [facility] tablet 00:00: 00:00 oral route 00 :00 every day as needed meloxicam 2020-0 2020- No 2{table QD take 2 [facility] 7.5 mg 4-07 08-21 t} tablet by [facility] tablet 00:00: 00:00 oral route 00 :00 every day as needed meloxicam 2020-0 2020- No 2{table QD take 2 [facility] 7.5 mg 4-07 08-21 t} tablet by [facility] tablet 00:00: 00:00 oral route 00 :00 every day as needed meloxicam 2020-0 2020- No 2{table QD take 2 [facility] 7.5 mg 4-07 08-21 t} tablet by [facility] tablet 00:00: 00:00 oral route 00 :00 every day as needed meloxicam 2020-0 2020- No 2{table QD take 2 [facility] 7.5 mg 4-07 08-21 t} tablet by [facility] tablet 00:00: 00:00 oral route 00 :00 every day as needed meloxicam 2020-0 2020- No 2{table QD take 2 [facility] 7.5 mg 4-07 08-21 t} tablet by [facility] tablet 00:00: 00:00 oral route 00 :00 every day as needed meloxicam 2020-0 2020- No 2{table QD take 2 [facility] 7.5 mg 4-07 08-21 t} tablet by [facility] tablet 00:00: 00:00 oral route 00 :00 every day as needed meloxicam 2020-0 2020- No 2{table QD take 2 [facility] 7.5 mg 4-07 08-21 t} tablet by [facility] tablet 00:00: 00:00 oral route 00 :00 every day as needed meloxicam 2020-0 2020- No 2{table QD take 2 [facility] 7.5 mg 4-07 08-21 t} tablet by [facility] tablet 00:00: 00:00 oral route 00 :00 every day as needed meloxicam 2020-0 2020- No 2{table QD take 2 [facility] 7.5 mg 4-07 08-21 t} tablet by [facility] tablet 00:00: 00:00 oral route 00 :00 every day as needed meloxicam 2020-0 2020- No 2{table QD take 2 [facility] 7.5 mg 4-07 08-21 t} tablet by [facility] tablet 00:00: 00:00 oral route 00 :00 every day as needed meloxicam 2020-0 2020- No 2{table QD take 2 [facility] 7.5 mg 4-07 08-21 t} tablet by [facility] tablet 00:00: 00:00 oral route 00 :00 every day as needed meloxicam 2020-0 2020- No 2{table QD take 2 [facility] 7.5 mg 4-07 08-21 t} tablet by [facility] tablet 00:00: 00:00 oral route 00 :00 every day as needed meloxicam 2020-0 2020- No 2{table QD take 2 [facility] 7.5 mg 4-07 08-21 t} tablet by [facility] tablet 00:00: 00:00 oral route 00 :00 every day as needed meloxicam 2020-0 2020- No 2{table QD take 2 [facility] 7.5 mg 4-07 08-21 t} tablet by [facility] tablet 00:00: 00:00 oral route 00 :00 every day as needed meloxicam 2020-0 2020- No 2{table QD take 2 [facility] 7.5 mg 4-07 08-21 t} tablet by [facility] tablet 00:00: 00:00 oral route 00 :00 every day as needed meloxicam 2020-0 2020- No 2{table QD take 2 [facility] 7.5 mg 4-07 08-21 t} tablet by [facility] tablet 00:00: 00:00 oral route 00 :00 every day as needed meloxicam 2020-0 2020- No 2{table QD take 2 [facility] 7.5 mg 4-07 08-21 t} tablet by [facility] tablet 00:00: 00:00 oral route 00 :00 every day as needed meloxicam 2020-0 2020- No 2{table QD take 2 [facility] 7.5 mg 4-07 08-21 t} tablet by [facility] tablet 00:00: 00:00 oral route 00 :00 every day as needed meloxicam 2020-0 2020- No 2{table QD take 2 [facility] 7.5 mg 4-07 08-21 t} tablet by [facility] tablet 00:00: 00:00 oral route 00 :00 every day as needed meloxicam 2020-0 2020- No 2{table QD take 2 [facility] 7.5 mg 4-07 08-21 t} tablet by [facility] tablet 00:00: 00:00 oral route 00 :00 every day as needed meloxicam 2020-0 2020- No 2{table QD take 2 [facility] 7.5 mg 4-07 08-21 t} tablet by [facility] tablet 00:00: 00:00 oral route 00 :00 every day as needed meloxicam 2020-0 2020- No 2{table QD take 2 [facility] 7.5 mg 4-07 08-21 t} tablet by [facility] tablet 00:00: 00:00 oral route 00 :00 every day as needed meloxicam 2020-0 2020- No 2{table QD take 2 [facility] 7.5 mg 4-07 08-21 t} tablet by [facility] tablet 00:00: 00:00 oral route 00 :00 every day as needed meloxicam 2020-0 2020- No 2{table QD take 2 [facility] 7.5 mg 4-07 08-21 t} tablet by [facility] tablet 00:00: 00:00 oral route 00 :00 every day as needed meloxicam 2020-0 2020- No 2{table QD take 2 [facility] 7.5 mg 4-07 08-21 t} tablet by [facility] tablet 00:00: 00:00 oral route 00 :00 every day as needed temazepam 2020-0 2020- No 2{capsu Q1D take 2 [facility] 15 mg 3-23 05-11 le} capsule by [facility] capsule 00:00: 00:00 oral route 00 :00 every day at bedtime as needed temazepam 2020-0 2020- No 2{capsu Q1D take 2 [facility] 15 mg 3-23 05-11 le} capsule by [facility] capsule 00:00: 00:00 oral route 00 :00 every day at bedtime as needed temazepam 2020-0 2020- No 2{capsu Q1D take 2 [facility] 15 mg 3-23 05-11 le} capsule by [facility] capsule 00:00: 00:00 oral route 00 :00 every day at bedtime as needed temazepam 2020-0 2020- No 2{capsu Q1D take 2 [facility] 15 mg 3-23 05-11 le} capsule by [facility] capsule 00:00: 00:00 oral route 00 :00 every day at bedtime as needed temazepam 2020-0 2020- No 2{capsu Q1D take 2 [facility] 15 mg 3-23 05-11 le} capsule by [facility] capsule 00:00: 00:00 oral route 00 :00 every day at bedtime as needed temazepam 2020-0 2020- No 2{capsu Q1D take 2 [facility] 15 mg 3-23 05-11 le} capsule by [facility] capsule 00:00: 00:00 oral route 00 :00 every day at bedtime as needed temazepam 2020-0 2020- No 2{capsu Q1D take 2 [facility] 15 mg 3-23 05-11 le} capsule by [facility] capsule 00:00: 00:00 oral route 00 :00 every day at bedtime as needed temazepam 2020-0 2020- No 2{capsu Q1D take 2 [facility] 15 mg 3-23 05-11 le} capsule by [facility] capsule 00:00: 00:00 oral route 00 :00 every day at bedtime as needed temazepam 2020-0 2020- No 2{capsu Q1D take 2 [facility] 15 mg 3-23 05-11 le} capsule by [facility] capsule 00:00: 00:00 oral route 00 :00 every day at bedtime as needed temazepam 2020-0 2020- No 2{capsu Q1D take 2 [facility] 15 mg 3-23 05-11 le} capsule by [facility] capsule 00:00: 00:00 oral route 00 :00 every day at bedtime as needed temazepam 2020-0 2020- No 2{capsu Q1D take 2 [facility] 15 mg 3-23 05-11 le} capsule by [facility] capsule 00:00: 00:00 oral route 00 :00 every day at bedtime as needed temazepam 2020-0 2020- No 2{capsu Q1D take 2 [facility] 15 mg 3-23 05-11 le} capsule by [facility] capsule 00:00: 00:00 oral route 00 :00 every day at bedtime as needed temazepam 2020-0 2020- No 2{capsu Q1D take 2 [facility] 15 mg 3-23 05-11 le} capsule by [facility] capsule 00:00: 00:00 oral route 00 :00 every day at bedtime as needed temazepam 2020-0 2020- No 2{capsu Q1D take 2 [facility] 15 mg 3-23 05-11 le} capsule by [facility] capsule 00:00: 00:00 oral route 00 :00 every day at bedtime as needed temazepam 2020-0 2020- No 2{capsu Q1D take 2 [facility] 15 mg 3-23 05-11 le} capsule by [facility] capsule 00:00: 00:00 oral route 00 :00 every day at bedtime as needed temazepam 2020-0 2020- No 2{capsu Q1D take 2 [facility] 15 mg 3-23 05-11 le} capsule by [facility] capsule 00:00: 00:00 oral route 00 :00 every day at bedtime as needed temazepam 2020-0 2020- No 2{capsu Q1D take 2 [facility] 15 mg 3-23 05-11 le} capsule by [facility] capsule 00:00: 00:00 oral route 00 :00 every day at bedtime as needed temazepam 2020-0 2020- No 2{capsu Q1D take 2 [facility] 15 mg 3-23 05-11 le} capsule by [facility] capsule 00:00: 00:00 oral route 00 :00 every day at bedtime as needed temazepam 2020-0 2020- No 2{capsu Q1D take 2 [facility] 15 mg 3-23 05-11 le} capsule by [facility] capsule 00:00: 00:00 oral route 00 :00 every day at bedtime as needed temazepam 2020-0 2020- No 2{capsu Q1D take 2 [facility] 15 mg 3-23 05-11 le} capsule by [facility] capsule 00:00: 00:00 oral route 00 :00 every day at bedtime as needed temazepam 2020-0 2020- No 2{capsu Q1D take 2 [facility] 15 mg 3-23 05-11 le} capsule by [facility] 00:00: 00:00 oral route 00 :00 every day at bedtime as needed temazepam 2020-0 2020- No 2{capsu Q1D take 2 [facility] 15 mg 3-23 05-11 le} capsule by [facility] capsule 00:00: 00:00 oral route 00 :00 every day at bedtime as needed temazepam 2020-0 2020- No 2{capsu Q1D take 2 [facility] 15 mg 3-23 05-11 le} capsule by [facility] capsule 00:00: 00:00 oral route 00 :00 every day at bedtime as needed temazepam 2020-0 2020- No 2{capsu Q1D take 2 [facility] 15 mg 3-23 05-11 le} capsule by [facility] capsule 00:00: 00:00 oral route 00 :00 every day at bedtime as needed temazepam 2020-0 2020- No 2{capsu Q1D take 2 [facility] 15 mg 3-23 05-11 le} capsule by [facility] capsule 00:00: 00:00 oral route 00 :00 every day at bedtime as needed temazepam 2020-0 2020- No 2{capsu Q1D take 2 [facility] 15 mg 3-23 05-11 le} capsule by [facility] capsule 00:00: 00:00 oral route 00 :00 every day at bedtime as needed temazepam 2020-0 2020- No 2{capsu Q1D take 2 [facility] 15 mg 3-23 05-11 le} capsule by [facility] capsule 00:00: 00:00 oral route 00 :00 every day at bedtime as needed temazepam 2020-0 2020- No 2{capsu Q1D take 2 [facility] 15 mg 3-23 05-11 le} capsule by [facility] capsule 00:00: 00:00 oral route 00 :00 every day at bedtime as needed temazepam 2020-0 2020- No 2{capsu Q1D take 2 [facility] 15 mg 3-23 05-11 le} capsule by [facility] capsule 00:00: 00:00 oral route 00 :00 every day at bedtime as needed temazepam 2020-0 2020- No 2{capsu Q1D take 2 [facility] 15 mg 3-23 05-11 le} capsule by [facility] capsule 00:00: 00:00 oral route 00 :00 every day at bedtime as needed temazepam 2020-0 2020- No 2{capsu Q1D take 2 [facility] 15 mg 3-23 05-11 le} capsule by [facility] capsule 00:00: 00:00 oral route 00 :00 every day at bedtime as needed temazepam 2020-0 2020- No 2{capsu Q1D take 2 [facility] 15 mg 3-23 05-11 le} capsule by [facility] capsule 00:00: 00:00 oral route 00 :00 every day at bedtime as needed temazepam 2020-0 2020- No 2{capsu Q1D take 2 [facility] 15 mg 3-23 05-11 le} capsule by [facility] capsule 00:00: 00:00 oral route 00 :00 every day at bedtime as needed temazepam 2020-0 2020- No 2{capsu Q1D take 2 [facility] 15 mg 3-23 05-11 le} capsule by [facility] capsule 00:00: 00:00 oral route 00 :00 every day at bedtime as needed temazepam 2020-0 2020- No 2{capsu Q1D take 2 [facility] 15 mg 3-23 05-11 le} capsule by [facility] capsule 00:00: 00:00 oral route 00 :00 every day at bedtime as needed temazepam 2020-0 2020- No 2{capsu Q1D take 2 [facility] 15 mg 3-23 05-11 le} capsule by [facility] capsule 00:00: 00:00 oral route 00 :00 every day at bedtime as needed temazepam 2020-0 2020- No 2{capsu Q1D take 2 [facility] 15 mg 3-23 05-11 le} capsule by [facility] capsule 00:00: 00:00 oral route 00 :00 every day at bedtime as needed temazepam 2020-0 2020- No 2{capsu Q1D take 2 [facility] 15 mg 3-23 05-11 le} capsule by [facility] capsule 00:00: 00:00 oral route 00 :00 every day at bedtime as needed Lidoderm 5 2020-0 No 1{patch Q1D apply 1 [facility] % topical 3-06 } patch by [facility] patch 00:00: transderma 00 l route every day (May wear up to 12hours.) cetirizine 2020-0 No 1{table BID take 1 [facility] 5 3-06 t} tablet by [facility] mg-pseudoep 00:00: oral route hedrine ER 00 every 12 120 mg hours as tablet,exte needed nded release,12h r Lidoderm 5 2020-0 No 1{patch Q1D apply 1 [facility] % topical 3-06 } patch by [facility] patch 00:00: transderma 00 l route every day (May wear up to 12hours.) cetirizine No 1{table BID take 1 [facility] 5 3-06 t} tablet by [facility] mg-pseudoep 00:00: oral route hedrine ER 00 every 12 120 mg hours as tablet,exte needed nded release,12h r Lidoderm 5 2020-0 No 1{patch Q1D apply 1 [facility] % topical 3-06 } patch by [facility] patch 00:00: transderma 00 l route every day (May wear up to 12hours.) cetirizine No 1{table BID take 1 [facility] 5 3-06 t} tablet by [facility] mg-pseudoep 00:00: oral route hedrine ER 00 every 12 120 mg hours as tablet,exte needed nded release,12h r Lidoderm 5 2019-0 No 1{patch Q1D apply 1 [facility] % topical 3-06 } patch by [facility] patch 00:00: transderma 00 l route every day (May wear up to 12hours.) cetirizine No 1{table BID take 1 [facility] 5 3-06 t} tablet by [facility] mg-pseudoep 00:00: oral route hedrine ER 00 every 12 120 mg hours as tablet,exte needed nded release,12h r Lidoderm 5 2020-0 No 1{patch Q1D apply 1 [facility] % topical 3-06 } patch by [facility] patch 00:00: transderma 00 l route every day (May wear up to 12hours.) cetirizine No 1{table BID take 1 [facility] 5 3-06 t} tablet by [facility] mg-pseudoep 00:00: oral route hedrine ER 00 every 12 120 mg hours as tablet,exte needed nded release,12h r Lidoderm 5 2020-0 No 1{patch Q1D apply 1 [facility] % topical 3-06 } patch by [facility] patch 00:00: transderma 00 l route every day (May wear up to 12hours.) cetirizine No 1{table BID take 1 [facility] 5 3-06 t} tablet by [facility] mg-pseudoep 00:00: oral route hedrine ER 00 every 12 120 mg hours as tablet,exte needed nded release,12h r Lidoderm 5 2019- No 1{patch Q1D apply 1 [facility] % topical 3-06 } patch by [facility] patch 00:00: transderma 00 l route every day (May wear up to 12hours.) cetirizine No 1{table BID take 1 [facility] 5 3-06 t} tablet by [facility] mg-pseudoep 00:00: oral route hedrine ER 00 every 12 120 mg hours as tablet,exte needed nded release,12h r Lidoderm 5 No 1{patch Q1D apply 1 [facility] % topical 3-06 } patch by [facility] patch 00:00: transderma 00 l route every day (May wear up to 12hours.) cetirizine No 1{table BID take 1 [facility] 5 3-06 t} tablet by [facility] mg-pseudoep 00:00: oral route hedrine ER 00 every 12 120 mg hours as tablet,exte needed nded release,12h r Lidoderm 5 No 1{patch Q1D apply 1 [facility] % topical 3-06 } patch by [facility] patch 00:00: transderma 00 l route every day (May wear up to 12hours.) cetirizine No 1{table BID take 1 [facility] 5 3-06 t} tablet by [facility] mg-pseudoep 00:00: oral route hedrine ER 00 every 12 120 mg hours as tablet,exte needed nded release,12h r Lidoderm 5 No 1{patch Q1D apply 1 [facility] % topical 3-06 } patch by [facility] patch 00:00: transderma 00 l route every day (May wear up to 12hours.) cetirizine No 1{table BID take 1 [facility] 5 3-06 t} tablet by [facility] mg-pseudoep 00:00: oral route hedrine ER 00 every 12 120 mg hours as tablet,exte needed nded release,12h r Lidoderm 5 2020-0 No 1{patch Q1D apply 1 [facility] % topical 3-06 } patch by [facility] patch 00:00: transderma 00 l route every day (May wear up to 12hours.) cetirizine No 1{table BID take 1 [facility] 5 3-06 t} tablet by [facility] mg-pseudoep 00:00: oral route hedrine ER 00 every 12 120 mg hours as tablet,exte needed nded release,12h r Lidoderm 5 2020-0 No 1{patch Q1D apply 1 [facility] % topical 3-06 } patch by [facility] patch 00:00: transderma 00 l route every day (May wear up to 12hours.) cetirizine No 1{table BID take 1 [facility] 5 3-06 t} tablet by [facility] mg-pseudoep 00:00: oral route hedrine ER 00 every 12 120 mg hours as tablet,exte needed nded release,12h r Lidoderm 5 2020-0 No 1{patch Q1D apply 1 [facility] % topical 3-06 } patch by [facility] patch 00:00: transderma 00 l route every day (May wear up to 12hours.) cetirizine No 1{table BID take 1 [facility] 5 3-06 t} tablet by [facility] mg-pseudoep 00:00: oral route hedrine ER 00 every 12 120 mg hours as tablet,exte needed nded release,12h r Lidoderm 5 2020-0 No 1{patch Q1D apply 1 [facility] % topical 3-06 } patch by [facility] patch 00:00: transderma 00 l route every day (May wear up to 12hours.) cetirizine No 1{table BID take 1 [facility] 5 3-06 t} tablet by [facility] mg-pseudoep 00:00: oral route hedrine ER 00 every 12 120 mg hours as tablet,exte needed nded release,12h r Lidoderm 5 2020-0 No 1{patch Q1D apply 1 [facility] % topical 3-06 } patch by [facility] patch 00:00: transderma 00 l route every day (May wear up to 12hours.) cetirizine No 1{table BID take 1 [facility] 5 3-06 t} tablet by [facility] mg-pseudoep 00:00: oral route hedrine ER 00 every 12 120 mg hours as tablet,exte needed nded release,12h r Lidoderm 5 No 1{patch Q1D apply 1 [facility] % topical 3-06 } patch by [facility] patch 00:00: transderma 00 l route every day (May wear up to 12hours.) cetirizine No 1{table BID take 1 [facility] 5 3-06 t} tablet by [facility] mg-pseudoep 00:00: oral route hedrine ER 00 every 12 120 mg hours as tablet,exte needed nded release,12h r Lidoderm 5 No 1{patch Q1D apply 1 [facility] % topical 3-06 } patch by [facility] patch 00:00: transderma 00 l route every day (May wear up to 12hours.) cetirizine No 1{table BID take 1 [facility] 5 3-06 t} tablet by [facility] mg-pseudoep 00:00: oral route hedrine ER 00 every 12 120 mg hours as tablet,exte needed nded release,12h r Lidoderm 5 No 1{patch Q1D apply 1 [facility] % topical 3-06 } patch by [facility] patch 00:00: transderma 00 l route every day (May wear up to 12hours.) cetirizine No 1{table BID take 1 [facility] 5 3-06 t} tablet by [facility] mg-pseudoep 00:00: oral route hedrine ER 00 every 12 120 mg hours as tablet,exte needed nded release,12h r Lidoderm 5 No 1{patch Q1D apply 1 [facility] % topical 3-06 } patch by [facility] patch 00:00: transderma 00 l route every day (May wear up to 12hours.) cetirizine No 1{table BID take 1 [facility] 5 3-06 t} tablet by [facility] mg-pseudoep 00:00: oral route hedrine ER 00 every 12 120 mg hours as tablet,exte needed nded release,12h r Lidoderm 5 2020-0 No 1{patch Q1D apply 1 [facility] % topical 3-06 } patch by [facility] patch 00:00: transderma 00 l route every day (May wear up to 12hours.) cetirizine No 1{table BID take 1 [facility] 5 3-06 t} tablet by [facility] mg-pseudoep 00:00: oral route hedrine ER 00 every 12 120 mg hours as tablet,exte needed nded release,12h r Lidoderm 5 2020-0 No 1{patch Q1D apply 1 [facility] % topical 3-06 } patch by [facility] patch 00:00: transderma 00 l route every day (May wear up to 12hours.) cetirizine No 1{table BID take 1 Ac [facility] 5 3-06 t} tablet by [facility] mg-pseudoep 00:00: oral route hedrine ER 00 every 12 120 mg hours as tablet,exte needed nded release,12h r Lidoderm 5 2020-0 No 1{patch Q1D apply 1 [facility] % topical 3-06 } patch by [facility] patch 00:00: transderma 00 l route every day (May wear up to 12hours.) cetirizine No 1{table BID take 1 [facility] 5 3-06 t} tablet by [facility] mg-pseudoep 00:00: oral route hedrine ER 00 every 12 120 mg hours as tablet,exte needed nded release,12h r Lidoderm 5 2020-0 No 1{patch Q1D apply 1 [facility] % topical 3-06 } patch by [facility] patch 00:00: transderma 00 l route every day (May wear up to 12hours.) cetirizine No 1{table BID take 1 [facility] 5 3-06 t} tablet by [facility] mg-pseudoep 00:00: oral route hedrine ER 00 every 12 120 mg hours as tablet,exte needed nded release,12h r Lidoderm 5 2020-0 No 1{patch Q1D apply 1 [facility] % topical 3-06 } patch by [facility] patch 00:00: transderma 00 l route every day (May wear up to 12hours.) cetirizine No 1{table BID take 1 Ac [facility] 5 3-06 t} tablet by [facility] mg-pseudoep 00:00: oral route hedrine ER 00 every 12 120 mg hours as tablet,exte needed nded release,12h r Lidoderm 5 2020-0 No 1{patch Q1D apply 1 [facility] % topical 3-06 } patch by [facility] patch 00:00: transderma 00 l route every day (May wear up to 12hours.) cetirizine No 1{table BID take 1 Ac [facility] 5 3-06 t} tablet by [facility] mg-pseudoep 00:00: oral route hedrine ER 00 every 12 120 mg hours as tablet,exte needed nded release,12h r Lidoderm 5 2020-0 No 1{patch Q1D apply 1 A [facility] % topical 3-06 } patch by [facility] patch 00:00: transderma 00 l route every day (May wear up to 12hours.) cetirizine No 1{table BID take 1 Ac [facility] 5 3-06 t} tablet by [facility] mg-pseudoep 00:00: oral route hedrine ER 00 every 12 120 mg hours as tablet,exte needed nded release,12h r Lidoderm 5 2020-0 No 1{patch Q1D apply 1 A [facility] % topical 3-06 } patch by [facility] patch 00:00: transderma 00 l route every day (May wear up to 12hours.) cetirizine No 1{table BID take 1 Ac [facility] 5 3-06 t} tablet by [facility] mg-pseudoep 00:00: oral route hedrine ER 00 every 12 120 mg hours as tablet,exte needed nded release,12h r Lidoderm 5 2020-0 No 1{patch Q1D apply 1 [facility] % topical 3-06 } patch by [facility] patch 00:00: transderma 00 l route every day (May wear up to 12hours.) cetirizine No 1{table BID take 1 Ac [facility] 5 3-06 t} tablet by [facility] mg-pseudoep 00:00: oral route hedrine ER 00 every 12 120 mg hours as tablet,exte needed nded release,12h r Lidoderm 5 2020-0 No 1{patch Q1D apply 1 A [facility] % topical 3-06 } patch by [facility] patch 00:00: transderma 00 l route every day (May wear up to 12hours.) cetirizine No 1{table BID take 1 Ac [facility] 5 3-06 t} tablet by [facility] mg-pseudoep 00:00: oral route hedrine ER 00 every 12 120 mg hours as tablet,exte needed nded release,12h r Lidoderm 5 2019-0 No 1{patch Q1D apply 1 A [facility] % topical 3-06 } patch by [facility] patch 00:00: transderma 00 l route every day (May wear up to 12hours.) cetirizine No 1{table BID take 1 Ac [facility] 5 3-06 t} tablet by [facility] mg-pseudoep 00:00: oral route hedrine ER 00 every 12 120 mg hours as tablet,exte needed nded release,12h r Lidoderm 5 2019-0 No 1{patch Q1D apply 1 A [facility] % topical 3-06 } patch by [facility] patch 00:00: transderma 00 l route every day (May wear up to 12hours.) cetirizine No 1{table BID take 1 Ac [facility] 5 3-06 t} tablet by [facility] mg-pseudoep 00:00: oral route hedrine ER 00 every 12 120 mg hours as tablet,exte needed nded release,12h r Lidoderm 5 2020-0 No 1{patch Q1D apply 1 A [facility] % topical 3-06 } patch by [facility] patch 00:00: transderma 00 l route every day (May wear up to 12hours.) cetirizine No 1{table BID take 1 Ac [facility] 5 3-06 t} tablet by [facility]alth mg-pseudoep 00:00: oral route hedrine ER 00 every 12 120 mg hours as tablet,exte needed nded release,12h r Lidoderm 5 20192020- No 1{patch Q1D apply 1 [facility] % topical 12-1912 } patch by [facility] patch 00:00: 00:00 transderma 00 :00 l route every day (May wear up to 12hours.) cetirizine 2020- No 1{table BID take 1 A ccess[facility] 5 3-06 -12 t} tablet by [facility] mg-pseudoep 00:00: 00:00 oral route hedrine ER 00 :00 every 12 120 mg hours as tablet,exte needed nded release,12h r Lidoderm 5 2020- No 1{patch Q1D apply 1 [facility] % topical 12-19 } patch by [facility] patch 00:00: 00:00 transderma 00 :00 l route every day (May wear up to 12hours.) cetirizine 2020- No 1{table BID take 1 A ccess[facility] 5 3-03 18-12 t} tablet by [facility] mg-pseudoep 00:00: 00:00 oral route hedrine ER 00 :00 every 12 120 mg hours as tablet,exte needed nded release,12h r Lidoderm 5 2020- No 1{patch Q1D apply 1 [facility] % topical 12-19 } patch by [facility] patch 00:00: 00:00 transderma 00 :00 l route every day (May wear up to 12hours.) cetirizine 2020- No 1{table BID take 1 A [facility]cess[facility] 5 3-06 -12 t} tablet by [facility] mg-pseudoep 00:00: 00:00 oral route hedrine ER 00 :00 every 12 120 mg hours as tablet,exte needed nded release,12h r Lidoderm 5 2020- No 1{patch Q1D apply 1 [facility] % topical 12-1912 } patch by [facility] patch 00:00: 00:00 transderma 00 :00 l route every day (May wear up to 12hours.) cetirizine 2020- No 1{table BID take 1 A [facility] 5 3-06 -12 t} tablet by [facility] mg-pseudoep 00:00: 00:00 oral route hedrine ER 00 :00 every 12 120 mg hours as tablet,exte needed nded release,12h r Lidoderm 5 2020- No 1{patch Q1D apply 1 [facility] % topical 12-19 } patch by [facility] patch 00:00: 00:00 transderma 00 :00 l route every day (May wear up to 12hours.) cetirizine 2020- No 1{table BID take 1 A ccess[facility] 5 -03 18-12 t} tablet by [facility] mg-pseudoep 00:00: 00:00 oral route hedrine ER 00 :00 every 12 120 mg hours as tablet,exte needed nded release,12h r Lidoderm 5 2020- No 1{patch Q1D apply 1 [facility] % topical 12-19 } patch by [facility] patch 00:00: 00:00 transderma 00 :00 l route every day (May wear up to 12hours.) cetirizine 2020- No 1{table BID take 1 A [facility] 5 12-19-12 t} tablet by [facility] mg-pseudoep 00:00: 00:00 oral route hedrine ER 00 :00 every 12 120 mg hours as tablet,exte needed nded release,12h r diazepam 10 2019- No 1{table QD take 1 [facility] mg tablet 3-06 08-20 t} tablet by [facility] 00:00: 00:00 oral route 00 :00 every day as needed diazepam 10 2019- No 1{table QD take 1 [facility] mg tablet 3-06 08-20 t} tablet by [facility] 00:00: 00:00 oral route 00 :00 every day as needed diazepam 10 2019- No 1{table QD take 1 [facility] mg tablet 3-06 08-20 t} tablet by [facility] h 00:00: 00:00 oral route 00 :00 every day as needed diazepam 10 2019- No 1{table QD take 1 [facility] mg tablet 3-06 08-20 t} tablet by [facility] h 00:00: 00:00 oral route 00 :00 every day as needed diazepam 10 2019- No 1{table QD take 1 [facility] mg tablet 3-06 08-20 t} tablet by [facility] 00:00: 00:00 oral route 00 :00 every day as needed diazepam 10 2019-0 2020- No 1{table QD take 1 [facility] mg tablet 3-06 08-20 t} tablet by [facility] h 00:00: 00:00 oral route 00 :00 every day as needed diazepam 10 2019-0 2020- No 1{table QD take 1 [facility] mg tablet 3-06 08-20 t} tablet by [facility] 00:00: 00:00 oral route 00 :00 every day as needed diazepam 10 2019-0 2020- No 1{table QD take 1 [facility] mg tablet 3-06 08-20 t} tablet by [facility] h 00:00: 00:00 oral route 00 :00 every day as needed diazepam 10 2019-0 2020- No 1{table QD take 1 [facility] mg tablet 3-06 08-20 t} tablet by [facility] h 00:00: 00:00 oral route 00 :00 every day as needed diazepam 10 2019-0 2020- No 1{table QD take 1 [facility] mg tablet 3-06 08-20 t} tablet by [facility] h 00:00: 00:00 oral route 00 :00 every day as needed diazepam 10 2019-0 2020- No 1{table QD take 1 [facility] mg tablet 3-06 08-20 t} tablet by [facility] h 00:00: 00:00 oral route 00 :00 every day as needed diazepam 10 2019-0 2020- No 1{table QD take 1 [facility] mg tablet 3-06 08-20 t} tablet by [facility] h 00:00: 00:00 oral route 00 :00 every day as needed diazepam 10 2019-0 2020- No 1{table QD take 1 [facility] mg tablet 3-06 08-20 t} tablet by [facility] h 00:00: 00:00 oral route 00 :00 every day as needed diazepam 10 2019-0 2020- No 1{table QD take 1 [facility] mg tablet 3-06 08-20 t} tablet by [facility] h 00:00: 00:00 oral route 00 :00 every day as needed diazepam 10 2019-0 2020- No 1{table QD take 1 [facility] mg tablet 3-06 08-20 t} tablet by [facility] h 00:00: 00:00 oral route 00 :00 every day as needed diazepam 10 2019-0 2020- No 1{table QD take 1 [facility] mg tablet 3-06 08-20 t} tablet by ealt h 00:00: 00:00 oral route 00 :00 every day as needed diazepam 10 2019- No 1{table QD take 1 [facility] mg tablet 3-06 08-20 t} tablet by [facility] h 00:00: 00:00 oral route 00 :00 every day as needed diazepam 10 2019- No 1{table QD take 1 [facility] mg tablet 3-06 08-20 t} tablet by [facility] h 00:00: 00:00 oral route 00 :00 every day as needed diazepam 10 2019- No 1{table QD take 1 [facility] mg tablet 3-06 08-20 t} tablet by ealt h 00:00: 00:00 oral route 00 :00 every day as needed diazepam 10 2019- No 1{table QD take 1 [facility] mg tablet 3-06 08-20 t} tablet by ealt h 00:00: 00:00 oral route 00 :00 every day as needed diazepam 10 2019-2019- No 1{table QD take 1 [facility] mg tablet 3-06 08-20 t} tablet by [facility]alt h 00:00: 00:00 oral route 00 :00 every day as needed diazepam 10 2019-2019- No 1{table QD take 1 [facility] mg tablet 3-06 08-20 t} tablet by [facility]alt h 00:00: 00:00 oral route 00 :00 every day as needed diazepam 10 2019-2019- No 1{table QD take 1 [facility] mg tablet 3-06 08-20 t} tablet by e[facility] h 00:00: 00:00 oral route 00 :00 every day as needed diazepam 10 2019-2019- No 1{table QD take 1 [facility] mg tablet 3-06 08-20 t} tablet by ealt h 00:00: 00:00 oral route 00 :00 every day as needed diazepam 10 2019-2019- No 1{table QD take 1 [facility] mg tablet 3-06 08-20 t} tablet by ealt h 00:00: 00:00 oral route 00 :00 every day as needed diazepam 10 2019- No 1{table QD take 1 [facility] mg tablet 3-06 08-20 t} tablet by ealt h 00:00: 00:00 oral route 00 :00 every day as needed diazepam 10 2019-0 2020- No 1{table QD take 1 [facility] mg tablet 3-06 08-20 t} tablet by ealt h 00:00: 00:00 oral route 00 :00 every day as needed diazepam 10 2019-0 2020- No 1{table QD take 1 [facility] mg tablet 3-06 08-20 t} tablet by ealt h 00:00: 00:00 oral route 00 :00 every day as needed diazepam 10 2019- No 1{table QD take 1 [facility] mg tablet 3-06 08-20 t} tablet by e[facility] h 00:00: 00:00 oral route 00 :00 every day as needed diazepam 10 2019- No 1{table QD take 1 [facility] mg tablet 3-06 08-20 t} tablet by ealt h 00:00: 00:00 oral route 00 :00 every day as needed diazepam 10 2019- 2020- No 1{table QD take 1 [facility] mg tablet 3-06 08-20 t} tablet by ealt h 00:00: 00:00 oral route 00 :00 every day as needed diazepam 10 2019- 2020- No 1{table QD take 1 [facility] mg tablet 3-06 08-20 t} tablet by ealt h 00:00: 00:00 oral route 00 :00 every day as needed diazepam 10 2019-0 2019- No 1{table QD take 1 [facility] mg tablet 3-06 08-20 t} tablet by ealt h 00:00: 00:00 oral route 00 :00 every day as needed diazepam 10 2019-0 2020- No 1{table QD take 1 [facility] mg tablet 3-06 08-20 t} tablet by ealt h 00:00: 00:00 oral route 00 :00 every day as needed diazepam 10 2019-0 2020- No 1{table QD take 1 [facility] mg tablet 3-06 08-20 t} tablet by ealt h 00:00: 00:00 oral route 00 :00 every day as needed diazepam 10 2019-2019- No 1{table QD take 1 [facility] mg tablet 3-06 08-20 t} tablet by ealt h 00:00: 00:00 oral route 00 :00 every day as needed diazepam 10 2019-2019- No 1{table QD take 1 [facility] mg tablet 3-06 08-20 t} tablet by ealt h 00:00: 00:00 oral route 00 :00 every day as needed diazepam 10 2019-0 2020- No 1{table QD take 1 [facility] mg tablet 3- 08-20 t} tablet by ealt h 00:00: 00:00 oral route 00 :00 every day as needed sertraline 2019-0 2020- No 1{table Q12H take 1 11/21/2019 [facility] 100 mg 3- 08-07 t} tablet by Pt needs eal th tablet 00:00: 00:00 oral route apt for 00 :00 2 times further every day fills, --AG,RN sertraline 2019- 2020- No 1{table Q12H take 1 11/21/2019 [facility] 100 mg 3- 08-07 t} tablet by Pt needs eal th tablet 00:00: 00:00 oral route apt for 00 :00 2 times further every day fills, --AG,RN sertraline 2019- 2020- No 1{table Q12H take 1 11/21/2019 [facility] 100 mg 3 08-07 t} tablet by Pt needs eal th tablet 00:00: 00:00 oral route apt for 00 :00 2 times further every day fills, --AG,RN sertraline 2019-0 2020- No 1{table Q12H take 1 11/21/2019 [facility] 100 mg 3- 08-07 t} tablet by Pt needs eal th tablet 00:00: 00:00 oral route apt for 00 :00 2 times further every day fills, --AG,RN sertraline 2019-0 2020- No 1{table Q12H take 1 11/21/2019 [facility] 100 mg 3-06 08-07 t} tablet by Pt needs eal th tablet 00:00: 00:00 oral route apt for 00 :00 2 times further every day fills, --AG,RN sertraline 2019-0 2020- No 1{table Q12H take 1 11/21/2019 [facility] 100 mg 3-06 08-07 t} tablet by Pt needs eal th tablet 00:00: 00:00 oral route apt for 00 :00 2 times further every day fills, --AG,RN sertraline 2019- 2020- No 1{table Q12H take 1 11/21/2019 [facility] 100 mg 3-06 08-07 t} tablet by Pt needs eal th tablet 00:00: 00:00 oral route apt for 00 :00 2 times further every day fills, --AG,RN sertraline 2019-0 2020- No 1{table Q12H take 1 11/21/2019 [facility] 100 mg 3-06 08-07 t} tablet by Pt needs eal th tablet 00:00: 00:00 oral route apt for 00 :00 2 times further every day fills, --AG,RN sertraline 2019-0 2020- No 1{table Q12H take 1 11/21/2019 [facility] 100 mg 3- 08-07 t} tablet by Pt needs eal th tablet 00:00: 00:00 oral route apt for 00 :00 2 times further every day fills, --AG,RN sertraline 2019-0 2020- No 1{table Q12H take 1 11/21/2019 [facility] 100 mg 3- 08-07 t} tablet by Pt needs eal th tablet 00:00: 00:00 oral route apt for 00 :00 2 times further every day fills, --AG,RN sertraline 2019-0 2020- No 1{table Q12H take 1 11/21/2019 [facility] 100 mg 3- 08-07 t} tablet by Pt needs eal th tablet 00:00: 00:00 oral route apt for 00 :00 2 times further every day fills, --AG,RN sertraline 2019-0 2020- No 1{table Q12H take 1 11/21/2019 [facility] 100 mg 3-06 08-07 t} tablet by Pt needs eal th tablet 00:00: 00:00 oral route apt for 00 :00 2 times further every day fills, --AG,RN sertraline 2019-0 2020- No 1{table Q12H take 1 11/21/2019 [facility] 100 mg 3-06 08-07 t} tablet by Pt needs eal th tablet 00:00: 00:00 oral route apt for 00 :00 2 times further every day fills, --AG,RN sertraline 2019-0 2020- No 1{table Q12H take 1 11/21/2019 [facility] 100 mg 3-06 08-07 t} tablet by Pt needs eal th tablet 00:00: 00:00 oral route apt for 00 :00 2 times further every day fills, --AG,RN sertraline 2020-0 2020- No 1{table Q12H take 1 11/21/2019 [facility] 100 mg 3-06 08-07 t} tablet by Pt needs eal th tablet 00:00: 00:00 oral route apt for 00 :00 2 times further every day fills, --AG,RN sertraline 2019-0 2020- No 1{table Q12H take 1 11/21/2019 [facility] 100 mg 3- 08-07 t} tablet by Pt needs eal th tablet 00:00: 00:00 oral route apt for 00 :00 2 times further every day fills, --AG,RN sertraline 2019-0 2020- No 1{table Q12H take 1 11/21/2019 [facility] 100 mg 3- 08-07 t} tablet by Pt needs eal th tablet 00:00: 00:00 oral route apt for 00 :00 2 times further every day fills, --AG,RN sertraline 2019-0 2020- No 1{table Q12H take 1 11/21/2019 [facility] 100 mg 3- 08-07 t} tablet by Pt needs eal th tablet 00:00: 00:00 oral route apt for 00 :00 2 times further every day fills, --AG,RN sertraline 2020-0 2020- No 1{table Q12H take 1 11/21/2019 [facility] 100 mg 3- 08-07 t} tablet by Pt needs eal th tablet 00:00: 00:00 oral route apt for 00 :00 2 times further every day fills, --AG,RN sertraline 2020-0 2020- No 1{table Q12H take 1 11/21/2019 [facility] 100 mg 3-06 08-07 t} tablet by Pt needs eal th tablet 00:00: 00:00 oral route apt for 00 :00 2 times further every day fills, --AG,RN sertraline 2020-0 2020- No 1{table Q12H take 1 11/21/2019 [facility] 100 mg 3-06 08-07 t} tablet by Pt needs eal th tablet 00:00: 00:00 oral route apt for 00 :00 2 times further every day fills, --AG,RN sertraline 2019- 2020- No 1{table Q12H take 1 11/21/2019 [facility] 100 mg 3-06 08-07 t} tablet by Pt needs eal th tablet 00:00: 00:00 oral route apt for 00 :00 2 times further every day fills, --AG,RN sertraline 2019- 2020- No 1{table Q12H take 1 11/21/2019 [facility] 100 mg 3-06 08-07 t} tablet by Pt needs eal th tablet 00:00: 00:00 oral route apt for 00 :00 2 times further every day fills, --AG,RN sertraline 2019- 2020- No 1{table Q12H take 1 11/21/2019 [facility] 100 mg 3-06 08-07 t} tablet by Pt needs eal th tablet 00:00: 00:00 oral route apt for 00 :00 2 times further every day fills, --AG,RN sertraline 2019- 2020- No 1{table Q12H take 1 11/21/2019 [facility] 100 mg 3- 08-07 t} tablet by Pt needs eal th tablet 00:00: 00:00 oral route apt for 00 :00 2 times further every day fills, --AG,RN sertraline 2019- 2020- No 1{table Q12H take 1 11/21/2019 [facility] 100 mg 3-06 08-07 t} tablet by Pt needs eal [facility] tablet 00:00: 00:00 oral route apt for 00 :00 2 times further every day fills, --AG,RN sertraline 2020- No 1{table Q12H take 1 11/21/2019 [facility] 100 mg 3-06 08-07 t} tablet by Pt needs eal th tablet 00:00: 00:00 oral route apt for 00 :00 2 times further every day fills, --AG,RN sertraline 2019- 2020- No 1{table Q12H take 1 11/21/2019 [facility] 100 mg 3-06 08-07 t} tablet by Pt needs eal th tablet 00:00: 00:00 oral route apt for 00 :00 2 times further every day fills, --AG,RN sertraline 2020-0 2020- No 1{table Q12H take 1 11/21/2019 [facility] 100 mg 3- 08-07 t} tablet by Pt needs eal th tablet 00:00: 00:00 oral route apt for 00 :00 2 times further every day fills, --AG,RN sertraline 2019-0 2020- No 1{table Q12H take 1 11/21/2019 [facility] 100 mg 3- 08-07 t} tablet by Pt needs eal th tablet 00:00: 00:00 oral route apt for 00 :00 2 times further every day fills, --AG,RN sertraline 2019-0 2020- No 1{table Q12H take 1 11/21/2019 [facility] 100 mg 3- 08-07 t} tablet by Pt needs eal [facility] tablet 00:00: 00:00 oral route apt for 00 :00 2 times further every day fills, --AG,RN sertraline 2019-0 2020- No 1{table Q12H take 1 11/21/2019 [facility] 100 mg 3 08-07 t} tablet by Pt needs eal th tablet 00:00: 00:00 oral route apt for 00 :00 2 times further every day fills, --AG,RN sertraline 2019-0 2020- No 1{table Q12H take 1 11/21/2019 [facility] 100 mg 3- 08-07 t} tablet by Pt needs eal th tablet 00:00: 00:00 oral route apt for 00 :00 2 times further every day fills, --AG,RN sertraline 2019-0 2020- No 1{table Q12H take 1 11/21/2019 [facility] 100 mg 3- 08-07 t} tablet by Pt needs eal th tablet 00:00: 00:00 oral route apt for 00 :00 2 times further every day fills, --AG,RN sertraline 2019-0 2020- No 1{table Q12H take 1 11/21/2019 [facility] 100 mg 3-06 08-07 t} tablet by Pt needs eal th tablet 00:00: 00:00 oral route apt for 00 :00 2 times further every day fills, --AG,RN sertraline 2019-0 2020- No 1{table Q12H take 1 11/21/2019 [facility] 100 mg 12-19 08-07 t} tablet by Pt needs eal th tablet 00:00: 00:00 oral route apt for 00 :00 2 times further every day fills, --AG,RN sertraline 2020- No 1{table Q12H take 1 11/21/2019 [facility] 100 mg 12-19 08-07 t} tablet by Pt needs eal th tablet 00:00: 00:00 oral route apt for 00 :00 2 times further every day fills, --AG,RN sertraline 2020- No 1{table Q12H take 1 11/21/2019 [facility] 100 mg 3 08-07 t} tablet by Pt needs eal th tablet 00:00: 00:00 oral route apt for 00 :00 2 times further every day fills, --AG,RN Flonase 2020- No 1{spray QD spray 1 - [facility] All[facility] 12-19 } 2 spray by [facility] 00:00: 00:00 intranasal mcg/actuati 00 :00 route on nasal every day spray,suspe in each nsion nostril as needed as needed Flonase 2020- No 1{spray QD spray 1 - [facility] Allergy 12-19 } 2 spray by [facility] 00:00: 00:00 intranasal mcg/actuati 00 :00 route on nasal every day spray,suspe in each nsion nostril as needed as needed Flonase 2020- No 1{spray QD spray 1 - A [facility] Allergy 12-19 } 2 spray by [facility] 00:00: 00:00 intranasal mcg/actuati 00 :00 route on nasal every day spray,suspe in each nsion nostril as needed as needed Flonase 2020- No 1{spray QD spray 1 - A [facility] Allergy 12-19 } 2 spray by [facility] 00:00: 00:00 intranasal mcg/actuati 00 :00 route on nasal every day spray,suspe in each nsion nostril as needed as needed Flonase 2020- No 1{spray QD spray 1 - A [facility] Allergy 12-19 } 2 spray by [facility] 00:00: 00:00 intranasal mcg/actuati 00 :00 route on nasal every day spray,suspe in each nsion nostril as needed as needed Flonase 2020-0 2020- No 1{spray QD spray 1 - A [facility] Allergy 12-19 } 2 spray by [facility] 00:00: 00:00 intranasal mcg/actuati 00 :00 route on nasal every day spray,suspe in each nsion nostril as needed as needed Flonase 2020-0 2020- No 1{spray QD spray 1 - A [facility] Allergy 12-19 } 2 spray by [facility] 00:00: 00:00 intranasal mcg/actuati 00 :00 route on nasal every day spray,suspe in each nsion nostril as needed as needed Flonase 2020-0 2020- No 1{spray QD spray 1 - A [facility] Allergy 12-19 } 2 spray by [facility] 00:00: 00:00 intranasal mcg/actuati 00 :00 route on nasal every day spray,suspe in each nsion nostril as needed as needed Flonase 2020-0 2020- No 1{spray QD spray 1 - A [facility] Allergy 12-19 } 2 spray by [facility] 00:00: 00:00 intranasal mcg/actuati 00 :00 route on nasal every day spray,suspe in each nsion nostril as needed as needed Flonase 2020-0 2020- No 1{spray QD spray 1 - A [facility] Allergy 12-19 } 2 spray by [facility] 00:00: 00:00 intranasal mcg/actuati 00 :00 route on nasal every day spray,suspe in each nsion nostril as needed as needed Flonase 2020-0 2020- No 1{spray QD spray 1 - A [facility] Allergy 12-19 } 2 spray by [facility] 00:00: 00:00 intranasal mcg/actuati 00 :00 route on nasal every day spray,suspe in each nsion nostril as needed as needed Flonase 2020-0 2020- No 1{spray QD spray 1 - A [facility] Allergy 12-19 } 2 spray by [facility] 00:00: 00:00 intranasal mcg/actuati 00 :00 route on nasal every day spray,suspe in each nsion nostril as needed as needed Flonase 2020-0 2020- No 1{spray QD spray 1 - A [facility] Allergy 12-19 } 2 spray by [facility] 00:00: 00:00 intranasal mcg/actuati 00 :00 route on nasal every day spray,suspe in each nsion nostril as needed as needed Flonase 2020-0 2020- No 1{spray QD spray 1 - A [facility] Allergy 12-19 } 2 spray by [facility] 00:00: 00:00 intranasal mcg/actuati 00 :00 route on nasal every day spray,suspe in each nsion nostril as needed as needed Flonase 2020-0 2020- No 1{spray QD spray 1 - A [facility] Allergy 12-19 } 2 spray by [facility] 00:00: 00:00 intranasal mcg/actuati 00 :00 route on nasal every day spray,suspe in each nsion nostril as needed as needed Flonase 2020-0 2020- No 1{spray QD spray 1 - A [facility] Allergy 12-19 } 2 spray by [facility] 00:00: 00:00 intranasal mcg/actuati 00 :00 route on nasal every day spray,suspe in each nsion nostril as needed as needed Flonase 2020-0 2020- No 1{spray QD spray 1 - A [facility] Allergy 12-19 } 2 spray by [facility] 00:00: 00:00 intranasal mcg/actuati 00 :00 route on nasal every day spray,suspe in each nsion nostril as needed as needed Flonase 2020-0 2020- No 1{spray QD spray 1 - A [facility] Allergy 12-19 } 2 spray by [facility] 00:00: 00:00 intranasal mcg/actuati 00 :00 route on nasal every day spray,suspe in each nsion nostril as needed as needed Flonase 2020-0 2020- No 1{spray QD spray 1 - A [facility] Allergy 12-19 } 2 spray by [facility] 00:00: 00:00 intranasal mcg/actuati 00 :00 route on nasal every day spray,suspe in each nsion nostril as needed as needed Flonase 2020-0 2020- No 1{spray QD spray 1 - A [facility] Allergy 12-19 } 2 spray by [facility] 00:00: 00:00 intranasal mcg/actuati 00 :00 route on nasal every day spray,suspe in each nsion nostril as needed as needed Flonase 2020-0 2020- No 1{spray QD spray 1 - A [facility] Allergy 12-19 } 2 spray by [facility] 00:00: 00:00 intranasal mcg/actuati 00 :00 route on nasal every day spray,suspe in each nsion nostril as needed as needed Flonase 2020-0 2020- No 1{spray QD spray 1 - A [facility] Allergy 12-19 } 2 spray by [facility] 00:00: 00:00 intranasal mcg/actuati 00 :00 route on nasal every day spray,suspe in each nsion nostril as needed as needed Flonase 2020-0 2020- No 1{spray QD spray 1 - A [facility] Allergy 12-19- } 2 spray by [facility] 00:00: 00:00 intranasal mcg/actuati 00 :00 route on nasal every day spray,suspe in each nsion nostril as needed as needed Flonase 2020-0 2020- No 1{spray QD spray 1 - A [facility] Allergy 12-19 } 2 spray by [facility] 00:00: 00:00 intranasal mcg/actuati 00 :00 route on nasal every day spray,suspe in each nsion nostril as needed as needed Flonase 2020-0 2020- No 1{spray QD spray 1 - A [facility] Allergy 12-19 } 2 spray by [facility] 00:00: 00:00 intranasal mcg/actuati 00 :00 route on nasal every day spray,suspe in each nsion nostril as needed as needed Flonase 2020-0 2020- No 1{spray QD spray 1 - A [facility] Allergy 3-04-21 } 2 spray by [facility] 00:00: 00:00 intranasal mcg/actuati 00 :00 route on nasal every day spray,suspe in each nsion nostril as needed as needed Flonase 2020-0 2020- No 1{spray QD spray 1 - A [facility] Allergy 12-19 } 2 spray by [facility] 00:00: 00:00 intranasal mcg/actuati 00 :00 route on nasal every day spray,suspe in each nsion nostril as needed as needed Flonase 2020-0 2020- No 1{spray QD spray 1 - A [facility] Allergy 12-19 } 2 spray by [facility] 00:00: 00:00 intranasal mcg/actuati 00 :00 route on nasal every day spray,suspe in each nsion nostril as needed as needed Flonase 2020-0 2020- No 1{spray QD spray 1 - A [facility] Allergy 12-19 } 2 spray by [facility] 00:00: 00:00 intranasal mcg/actuati 00 :00 route on nasal every day spray,suspe in each nsion nostril as needed as needed Flonase 2020-0 2020- No 1{spray QD spray 1 - A [facility] Allergy 12-19 } 2 spray by [facility] 00:00: 00:00 intranasal mcg/actuati 00 :00 route on nasal every day spray,suspe in each nsion nostril as needed as needed Flonase 2020-0 2020- No 1{spray QD spray 1 - A [facility] Allergy 12-19 } 2 spray by [facility] 00:00: 00:00 intranasal mcg/actuati 00 :00 route on nasal every day spray,suspe in each nsion nostril as needed as needed Flonase 2020-0 2020- No 1{spray QD spray 1 - A [facility] Allergy 12-19 } 2 spray by [facility] 00:00: 00:00 intranasal mcg/actuati 00 :00 route on nasal every day spray,suspe in each nsion nostril as needed as needed Flonase 2020-0 2020- No 1{spray QD spray 1 - A [facility] Allergy 12-19 } 2 spray by [facility] 00:00: 00:00 intranasal mcg/actuati 00 :00 route on nasal every day spray,suspe in each nsion nostril as needed as needed Flonase 2020- No 1{spray QD spray 1 - A [facility] Allergy 12-19 } 2 spray by [facility] 00:00: 00:00 intranasal mcg/actuati 00 :00 route on nasal every day spray,suspe in each nsion nostril as needed as needed Flonase 2020- No 1{spray QD spray 1 - A [facility] Allergy 12-19 } 2 spray by [facility] 00:00: 00:00 intranasal mcg/actuati 00 :00 route on nasal every day spray,suspe in each nsion nostril as needed as needed Flonase 2020- No 1{spray QD spray 1 - A [facility] Allergy 12-19 } 2 spray by [facility] 00:00: 00:00 intranasal mcg/actuati 00 :00 route on nasal every day spray,suspe in each nsion nostril as needed as needed Flonase 2019- 2020- No 1{spray QD spray 1 - A [facility] Allergy 12-19 } 2 spray by [facility] 00:00: 00:00 intranasal mcg/actuati 00 :00 route on nasal every day spray,suspe in each nsion nostril as needed as needed Flonase 2019- 2020- No 1{spray QD spray 1 - A [facility] Allergy 12-19 } 2 spray by [facility] 00:00: 00:00 intranasal mcg/actuati 00 :00 route on nasal every day spray,suspe in each nsion nostril as needed as needed butalbital- 2020- No 1{capsu 6xD take 1 - 2 11/21/19 20 [facility] acetaminoph 12-19 le} capsule by Pt needs [facility] en-caffeine 00:00: 00:00 oral route apt for 50 mg-325 00 :00 every 4 further mg-40 mg hours as fills, capsule needed not --AG,RN to exceed 6 capsules per 24hrs as needed butalbital- 2019- 2020- No 1{capsu 6xD take 1 - 2 11/21/19 20 [facility] acetaminoph 12-19 le} capsule by Pt needs ealth en-caffeine 00:00: 00:00 oral route apt for 50 mg-325 00 :00 every 4 further mg-40 mg hours as fills, capsule needed not --AG,RN to exceed 6 capsules per 24hrs as needed butalbital 2020- No 1{capsu 6xD take 1 - 2 11/21/19 20 [facility] acetaminoph 12-19 le} capsule by Pt needs ealth en-caffeine 00:00: 00:00 oral route apt for 50 mg-325 00 :00 every 4 further mg-40 mg hours as fills, capsule needed not --AG,RN to exceed 6 capsules per 24hrs as needed butalbital 2020- No 1{capsu 6xD take 1 - 2 11/21/19 20 [facility] acetaminoph 12-19 le} capsule by Pt needs ealth en-caffeine 00:00: 00:00 oral route apt for 50 mg-325 00 :00 every 4 further mg-40 mg hours as fills, capsule needed not --AG,RN to exceed 6 capsules per 24hrs as needed butalbital 2020- No 1{capsu 6xD take 1 - 2 11/21/19 20 [facility] acetaminoph 12-19 le} capsule by Pt needs ealth en-caffeine 00:00: 00:00 oral route apt for 50 mg-325 00 :00 every 4 further mg-40 mg hours as fills, capsule needed not --AG,RN to exceed 6 capsules per 24hrs as needed butalbital 2020- No 1{capsu 6xD take 1 - 2 11/21/19 20 [facility] acetaminoph 12-19 le} capsule by Pt needs ealth en-caffeine 00:00: 00:00 oral route apt for 50 mg-325 00 :00 every 4 further mg-40 mg hours as fills, capsule needed not --AG,RN to exceed 6 capsules per 24hrs as needed butalbital 2020- No 1{capsu 6xD take 1 - 2 11/21/19 20 [facility] acetaminoph 12-19 le} capsule by Pt needs ealth en-caffeine 00:00: 00:00 oral route apt for 50 mg-325 00 :00 every 4 further mg-40 mg hours as fills, capsule needed not --AG,RN to exceed 6 capsules per 24hrs as needed butalbital 2020- No 1{capsu 6xD take 1 - 2 11/21/19 20 [facility] acetaminoph 12-19 le} capsule by Pt needs ealth en-caffeine 00:00: 00:00 oral route apt for 50 mg-325 00 :00 every 4 further mg-40 mg hours as fills, capsule needed not --AG,RN to exceed 6 capsules per 24hrs as needed butalbital 2020- No 1{capsu 6xD take 1 - 2 11/21/19 20 [facility] acetaminoph 12-19 le} capsule by Pt needs ealth en-caffeine 00:00: 00:00 oral route apt for 50 mg-325 00 :00 every 4 further mg-40 mg hours as fills, capsule needed not --AG,RN to exceed 6 capsules per 24hrs as needed butalbital 2020- No 1{capsu 6xD take 1 - 2 11/21/19 20 [facility] acetaminoph 12-19 le} capsule by Pt needs ealth en-caffeine 00:00: 00:00 oral route apt for 50 mg-325 00 :00 every 4 further mg-40 mg hours as fills, capsule needed not --AG,RN to exceed 6 capsules per 24hrs as needed butalbital 2020- No 1{capsu 6xD take 1 - 2 11/21/19 20 [facility] acetaminoph 12-19 le} capsule by Pt needs ealth en-caffeine 00:00: 00:00 oral route apt for 50 mg-325 00 :00 every 4 further mg-40 mg hours as fills, capsule needed not --AG,RN to exceed 6 capsules per 24hrs as needed butalbital 2020- No 1{capsu 6xD take 1 - 2 11/21/19 20 [facility] acetaminoph 12-19 le} capsule by Pt needs ealth en-caffeine 00:00: 00:00 oral route apt for 50 mg-325 00 :00 every 4 further mg-40 mg hours as fills, capsule needed not --AG,RN to exceed 6 capsules per 24hrs as needed butalbital 2020- No 1{capsu 6xD take 1 - 2 11/21/19 20 [facility] acetaminoph 12-19 le} capsule by Pt needs ealth en-caffeine 00:00: 00:00 oral route apt for 50 mg-325 00 :00 every 4 further mg-40 mg hours as fills, capsule needed not --AG,RN to exceed 6 capsules per 24hrs as needed butalbital 2020- No 1{capsu 6xD take 1 - 2 11/21/19 [facility] acetaminoph 12-19 le} capsule by Pt needs ealth en-caffeine 00:00: 00:00 oral route apt for 50 mg-325 00 :00 every 4 further mg-40 mg hours as fills, capsule needed not --AG,RN to exceed 6 capsules per 24hrs as needed butalbital 2020- No 1{capsu 6xD take 1 - 2 11/21/19 20 [facility] acetaminoph 12-19 le} capsule by Pt needs ealth en-caffeine 00:00: 00:00 oral route apt for 50 mg-325 00 :00 every 4 further mg-40 mg hours as fills, capsule needed not --AG,RN to exceed 6 capsules per 24hrs as needed butalbital 2020- No 1{capsu 6xD take 1 - 2 11/21/19 20 [facility] acetaminoph 12-19 le} capsule by Pt needs ealth en-caffeine 00:00: 00:00 oral route apt for 50 mg-325 00 :00 every 4 further mg-40 mg hours as fills, capsule needed not --AG,RN to exceed 6 capsules per 24hrs as needed butalbital 2020- No 1{capsu 6xD take 1 - 2 11/21/19 20 [facility] acetaminoph 12-19 le} capsule by Pt needs ealth en-caffeine 00:00: 00:00 oral route apt for 50 mg-325 00 :00 every 4 further mg-40 mg hours as fills, capsule needed not --AG,RN to exceed 6 capsules per 24hrs as needed butalbital 2020- No 1{capsu 6xD take 1 - 2 11/21/19 20 [facility] acetaminoph 12-19 le} capsule by Pt needs ealth en-caffeine 00:00: 00:00 oral route apt for 50 mg-325 00 :00 every 4 further mg-40 mg hours as fills, capsule needed not --AG,RN to exceed 6 capsules per 24hrs as needed butalbital 2020- No 1{capsu 6xD take 1 - 2 11/21/19 20 [facility] acetaminoph 12-19 le} capsule by Pt needs ealth en-caffeine 00:00: 00:00 oral route apt for 50 mg-325 00 :00 every 4 further mg-40 mg hours as fills, capsule needed not --AG,RN to exceed 6 capsules per 24hrs as needed butalbital 2020- No 1{capsu 6xD take 1 - 2 11/21/19 20 [facility] acetaminoph 12-19 le} capsule by Pt needs ealth en-caffeine 00:00: 00:00 oral route apt for 50 mg-325 00 :00 every 4 further mg-40 mg hours as fills, capsule needed not --AG,RN to exceed 6 capsules per 24hrs as needed butalbital 2020- No 1{capsu 6xD take 1 - 2 11/21/19 20 [facility] acetaminoph 12-19 le} capsule by Pt needs ealth en-caffeine 00:00: 00:00 oral route apt for 50 mg-325 00 :00 every 4 further mg-40 mg hours as fills, capsule needed not --AG,RN to exceed 6 capsules per 24hrs as needed butalbital 2020- No 1{capsu 6xD take 1 - 2 11/21/19 20 [facility] acetaminoph 12-19 le} capsule by Pt needs ealth en-caffeine 00:00: 00:00 oral route apt for 50 mg-325 00 :00 every 4 further mg-40 mg hours as fills, capsule needed not --AG,RN to exceed 6 capsules per 24hrs as needed butalbital 2020- No 1{capsu 6xD take 1 - 2 11/21/19 20 [facility] acetaminoph 12-19 le} capsule by Pt needs ealth en-caffeine 00:00: 00:00 oral route apt for 50 mg-325 00 :00 every 4 further mg-40 mg hours as fills, capsule needed not --AG,RN to exceed 6 capsules per 24hrs as needed butalbital 2020- No 1{capsu 6xD take 1 - 2 11/21/19 20 [facility] acetaminoph 12-19 le} capsule by Pt needs ealth en-caffeine 00:00: 00:00 oral route apt for 50 mg-325 00 :00 every 4 further mg-40 mg hours as fills, capsule needed not --AG,RN to exceed 6 capsules per 24hrs as needed butalbital 2020- No 1{capsu 6xD take 1 - 2 11/21/19 20 [facility] acetaminoph 12-19 le} capsule by Pt needs ealth en-caffeine 00:00: 00:00 oral route apt for 50 mg-325 00 :00 every 4 further mg-40 mg hours as fills, capsule needed not --AG,RN to exceed 6 capsules per 24hrs as needed butalbital 2020- No 1{capsu 6xD take 1 - 2 11/21/19 20 [facility] acetaminoph 12-19 le} capsule by Pt needs ealth en-caffeine 00:00: 00:00 oral route apt for 50 mg-325 00 :00 every 4 further mg-40 mg hours as fills, capsule needed not --AG,RN to exceed 6 capsules per 24hrs as needed butalbital 2020- No 1{capsu 6xD take 1 - 2 11/21/19 20 [facility] acetaminoph 12-19 le} capsule by Pt needs ealth en-caffeine 00:00: 00:00 oral route apt for 50 mg-325 00 :00 every 4 further mg-40 mg hours as fills, capsule needed not --AG,RN to exceed 6 capsules per 24hrs as needed butalbital 2020- No 1{capsu 6xD take 1 - 2 11/21/19 20 [facility] acetaminoph 304-07 le} capsule by Pt needs ealth en-caffeine 00:00: 00:00 oral route apt for 50 mg-325 00 :00 every 4 further mg-40 mg hours as fills, capsule needed not --AG,RN to exceed 6 capsules per 24hrs as needed butalbital 2020- No 1{capsu 6xD take 1 - 2 11/21/19 20 [facility] acetaminoph 12-19 le} capsule by Pt needs ealth en-caffeine 00:00: 00:00 oral route apt for 50 mg-325 00 :00 every 4 further mg-40 mg hours as fills, capsule needed not --AG,RN to exceed 6 capsules per 24hrs as needed butalbital 2020- No 1{capsu 6xD take 1 - 2 11/21/19 20 [facility] acetaminoph 12-19 le} capsule by Pt needs ealth en-caffeine 00:00: 00:00 oral route apt for 50 mg-325 00 :00 every 4 further mg-40 mg hours as fills, capsule needed not --AG,RN to exceed 6 capsules per 24hrs as needed butalbital 2020- No 1{capsu 6xD take 1 - 2 11/21/19 20 [facility] acetaminoph 12-19 le} capsule by Pt needs ealth en-caffeine 00:00: 00:00 oral route apt for 50 mg-325 00 :00 every 4 further mg-40 mg hours as fills, capsule needed not --AG,RN to exceed 6 capsules per 24hrs as needed butalbital 2020- No 1{capsu 6xD take 1 - 2 11/21/19 20 [facility] acetaminoph 12-19 le} capsule by Pt needs ealth en-caffeine 00:00: 00:00 oral route apt for 50 mg-325 00 :00 every 4 further mg-40 mg hours as fills, capsule needed not --AG,RN to exceed 6 capsules per 24hrs as needed butalbital 2020- No 1{capsu 6xD take 1 - 2 11/21/19 20 [facility] acetaminoph 12-19 le} capsule by Pt needs ealth en-caffeine 00:00: 00:00 oral route apt for 50 mg-325 00 :00 every 4 further mg-40 mg hours as fills, capsule needed not --AG,RN to exceed 6 capsules per 24hrs as needed butalbital 2020- No 1{capsu 6xD take 1 - 2 11/21/19 20 [facility] acetaminoph 12-19 le} capsule by Pt needs ealth en-caffeine 00:00: 00:00 oral route apt for 50 mg-325 00 :00 every 4 further mg-40 mg hours as fills, capsule needed not --AG,RN to exceed 6 capsules per 24hrs as needed butalbital2019- No 1{capsu 6xD take 1 - 2 11/21/19 20 [facility] acetaminoph 12-19 le} capsule by Pt needs ealth en-caffeine 00:00: 00:00 oral route apt for 50 mg-325 00 :00 every 4 further mg-40 mg hours as fills, capsule needed not --AG,RN to exceed 6 capsules per 24hrs as needed butalbital 2020- No 1{capsu 6xD take 1 - 2 11/21/19 20 [facility] acetaminoph 12-19 le} capsule by Pt needs ealth en-caffeine 00:00: 00:00 oral route apt for 50 mg-325 00 :00 every 4 further mg-40 mg hours as fills, capsule needed not --AG,RN to exceed 6 capsules per 24hrs as needed butalbital 2020- No 1{capsu 6xD take 1 - 2 11/21/19 20 [facility] acetaminoph 304-07 le} capsule by Pt needs ealth en-caffeine 00:00: 00:00 oral route apt for 50 mg-325 00 :00 every 4 further mg-40 mg hours as fills, capsule needed not --AG,RN to exceed 6 capsules per 24hrs as needed butalbital- 2020-0 2020- No 1{capsu 6xD take 1 - 2 11/21/19 20 [facility] acetaminoph 12-19 le} capsule by Pt needs ealth en-caffeine 00:00: 00:00 oral route apt for 50 mg-325 00 :00 every 4 further mg-40 mg hours as fills, capsule needed not --AG,RN to exceed 6 capsules per 24hrs as needed gabapentin 2019-0 2020- No 3{capsu Q8H take 3 11/21/2019 [facility] 300 mg 12-19 le} capsule by Pt needs [facility] capsule 00:00: 00:00 oral route apt for 00 :00 3 times further every day fills, --AG,RN gabapentin 2019-0 2020- No 3{capsu Q8H take 3 11/21/2019 [facility] 300 mg 12-19 le} capsule by Pt needs [facility] capsule 00:00: 00:00 oral route apt for 00 :00 3 times further every day fills, --AG,RN gabapentin 2019-0 2020- No 3{capsu Q8H take 3 11/21/2019 [facility] 300 mg 12-19 le} capsule by [facility] capsule 00:00: 00:00 oral route apt for 00 :00 3 times further every day fills, --AG,RN gabapentin 2020-0 2020- No 3{capsu Q8H take 3 11/21/2019 [facility] 300 mg 12-19 le} capsule by [facility] capsule 00:00: 00:00 oral route apt for 00 :00 3 times further every day fills, --AG,RN gabapentin 2020-0 2020- No 3{capsu Q8H take 3 11/21/2019 [facility] 300 mg 12-19 le} capsule by [facility] 00:00: 00:00 oral route apt for 00 :00 3 times further every day fills, --AG,RN gabapentin 2020-0 2020- No 3{capsu Q8H take 3 11/21/2019 [facility] 300 mg 12-19 le} capsule by [facility] capsule 00:00: 00:00 oral route apt for 00 :00 3 times further every day fills, --AG,RN gabapentin 2020-0 2020- No 3{capsu Q8H take 3 11/21/2019 [facility] 300 mg 12-19 le} capsule by [facility] 00:00: 00:00 oral route apt for 00 :00 3 times further every day fills, --AG,RN gabapentin 2020-0 2020- No 3{capsu Q8H take 3 11/21/2019 [facility] 300 mg 12-19 le} capsule by [facility] capsule 00:00: 00:00 oral route apt for 00 :00 3 times further every day fills, --AG,RN gabapentin 2019-0 2020- No 3{capsu Q8H take 3 11/21/2019 [facility] 300 mg 12-19 le} capsule by [facility] capsule 00:00: 00:00 oral route apt for 00 :00 3 times further every day fills, --AG,RN gabapentin 2019-0 2020- No 3{capsu Q8H take 3 11/21/2019 [facility] 300 mg 12-19 le} capsule by [facility] needs [facility] capsule 00:00: 00:00 oral route apt for 00 :00 3 times further every day fills, --AG,RN gabapentin 2020-0 2020- No 3{capsu Q8H take 3 11/21/2019 [facility] 300 mg 12-19 le} capsule by [facility] capsule 00:00: 00:00 oral route apt for 00 :00 3 times further every day fills, --AG,RN gabapentin 2020-0 2020- No 3{capsu Q8H take 3 11/21/2019 [facility] 300 mg 12-19 le} capsule by [facility] capsule 00:00: 00:00 oral route apt for 00 :00 3 times further every day fills, --AG,RN gabapentin 2020-0 2020- No 3{capsu Q8H take 3 11/21/2019 [facility] 300 mg 12-19 le} capsule by [facility] capsule 00:00: 00:00 oral route apt for 00 :00 3 times further every day fills, --AG,RN gabapentin 2020-0 2020- No 3{capsu Q8H take 3 11/21/2019 [facility] 300 mg 12-19 le} capsule by Pt needs [facility] capsule 00:00: 00:00 oral route apt for 00 :00 3 times further every day fills, --AG,RN gabapentin 2020-0 2020- No 3{capsu Q8H take 3 11/21/2019 [facility] 300 mg 12-19 le} capsule by Pt needs [facility] capsule 00:00: 00:00 oral route apt for 00 :00 3 times further every day fills, --AG,RN gabapentin 2020-0 2020- No 3{capsu Q8H take 3 11/21/2019 [facility] 300 mg 12-19 le} capsule by Pt needs [facility] capsule 00:00: 00:00 oral route apt for 00 :00 3 times further every day fills, --AG,RN gabapentin 2020-0 2020- No 3{capsu Q8H take 3 11/21/2019 [facility] 300 mg 12-19 le} capsule by Pt needs [facility] capsule 00:00: 00:00 oral route apt for 00 :00 3 times further every day fills, --AG,RN gabapentin 2020-0 2020- No 3{capsu Q8H take 3 11/21/2019 [facility] 300 mg 12-19 le} capsule by Pt needs [facility] capsule 00:00: 00:00 oral route apt for 00 :00 3 times further every day fills, --AG,RN gabapentin 2020-0 2020- No 3{capsu Q8H take 3 11/21/2019 [facility] 300 mg 12-19 le} capsule by Pt needs [facility] capsule 00:00: 00:00 oral route apt for 00 :00 3 times further every day fills, --AG,RN gabapentin 2020-0 2020- No 3{capsu Q8H take 3 11/21/2019 [facility] 300 mg 12-19 le} capsule by Pt needs [facility] capsule 00:00: 00:00 oral route apt for 00 :00 3 times further every day fills, --AG,RN gabapentin 2020-0 2020- No 3{capsu Q8H take 3 11/21/2019 [facility] 300 mg 3-06 06-16 le} capsule by Pt needs [facility] capsule 00:00: 00:00 oral route apt for 00 :00 3 times further every day fills, --AG,RN gabapentin 2020-0 2020- No 3{capsu Q8H take 3 11/21/2019 [facility] 300 mg 12-19 le} capsule by Pt needs [facility] capsule 00:00: 00:00 oral route apt for 00 :00 3 times further every day fills, --AG,RN gabapentin 2020-0 2020- No 3{capsu Q8H take 3 11/21/2019 [facility] 300 mg 12-19 le} capsule by Pt needs [facility] capsule 00:00: 00:00 oral route apt for 00 :00 3 times further every day fills, --AG,RN gabapentin 2020-0 2020- No 3{capsu Q8H take 3 11/21/2019 [facility] 300 mg 12-19 le} capsule by Pt needs [facility] capsule 00:00: 00:00 oral route apt for 00 :00 3 times further every day fills, --AG,RN gabapentin 2020-0 2020- No 3{capsu Q8H take 3 11/21/2019 [facility] 300 mg 12-19 le} capsule by Pt needs [facility] capsule 00:00: 00:00 oral route apt for 00 :00 3 times further every day fills, --AG,RN gabapentin 2020-0 2020- No 3{capsu Q8H take 3 11/21/2019 [facility] 300 mg 12-19 le} capsule by Pt needs [facility] capsule 00:00: 00:00 oral route apt for 00 :00 3 times further every day fills, --AG,RN gabapentin 2020-0 2020- No 3{capsu Q8H take 3 11/21/2019 [facility] 300 mg 12-19 le} capsule by Pt needs [facility] capsule 00:00: 00:00 oral route apt for 00 :00 3 times further every day fills, --AG,RN gabapentin 2020-0 2020- No 3{capsu Q8H take 3 11/21/2019 [facility] 300 mg 12-19 le} capsule by Pt needs [facility] capsule 00:00: 00:00 oral route apt for 00 :00 3 times further every day fills, --AG,RN gabapentin 2020-0 2020- No 3{capsu Q8H take 3 11/21/2019 [facility] 300 mg 12-19 le} capsule by Pt needs [facility] capsule 00:00: 00:00 oral route apt for 00 :00 3 times further every day fills, --AG,RN gabapentin 2020-0 2020- No 3{capsu Q8H take 3 11/21/2019 [facility] 300 mg 12-19 le} capsule by Pt needs [facility] capsule 00:00: 00:00 oral route apt for 00 :00 3 times further every day fills, --AG,RN gabapentin 2020-0 2020- No 3{capsu Q8H take 3 11/21/2019 [facility] 300 mg 12-19 le} capsule by Pt needs [facility]a [facility] capsule 00:00: 00:00 oral route apt for 00 :00 3 times further every day fills, --AG,RN gabapentin 2019-0 2020- No 3{capsu Q8H take 3 11/21/2019 [facility] 300 mg 12-19 le} capsule by Pt needs [facility]a [facility] capsule 00:00: 00:00 oral route apt for 00 :00 3 times further every day fills, --AG,RN gabapentin 2020-0 2020- No 3{capsu Q8H take 3 11/21/2019 [facility] 300 mg 12-19 le} capsule by Pt needs ea [facility] capsule 00:00: 00:00 oral route apt for 00 :00 3 times further every day fills, --AG,RN gabapentin 2020-0 2020- No 3{capsu Q8H take 3 11/21/2019 [facility] 300 mg 12-19 le} capsule by Pt needs [facility] capsule 00:00: 00:00 oral route apt for 00 :00 3 times further every day fills, --AG,RN gabapentin 2020-0 2020- No 3{capsu Q8H take 3 11/21/2019 [facility] 300 mg 12-19 le} capsule by Pt needs [facility]a [facility] capsule 00:00: 00:00 oral route apt for 00 :00 3 times further every day fills, --AG,RN gabapentin 2020-0 2020- No 3{capsu Q8H take 3 11/21/2019 [facility] 300 mg 12-1916 le} capsule by Pt needs ea [facility] capsule 00:00: 00:00 oral route apt for 00 :00 3 times further every day fills, --AG,RN gabapentin 2020- No 3{capsu Q8H take 3 11/21/2019 [facility] 300 mg 12-19 le} capsule by Pt needs [facility]a [facility] capsule 00:00: 00:00 oral route apt for 00 :00 3 times further every day fills, --AG,RN gabapentin 2020- No 3{capsu Q8H take 3 11/21/2019 [facility] 300 mg 12-19 le} capsule by Pt needs [facility] capsule 00:00: 00:00 oral route apt for 00 :00 3 times further every day fills, --AG,RN tizanidine 2020- No 1{table QID take 1 11/21/2019 [facility] 4 mg tablet 3 05-04 t} tablet by Pt needs ealt 00:00: 00:00 oral route apt for 00 :00 every 6 - further 8 hours as fills, needed not --AG,RN to exceed 3 doses in 24 hours as needed Klonopin 1 2020- No 1{table TID take 1 11/21/2019 [facility] mg tablet - 05-04 t} tablet by Spoke to [facility] 00:00: 00:00 oral route Adán from 00 :00 3 times [facility], as needed he advised that patient filled medicatio n on 0 and is not due for fill, medicatio n not filled .--AG,RN tizanidine 2020- No 1{table QID take 1 11/21/2019 [facility] 4 mg tablet 3- 05-04 t} tablet by Pt needs ealt 00:00: 00:00 oral route apt for 00 :00 every 6 - further 8 hours as fills, needed not --AG,RN to exceed 3 doses in 24 hours as needed Klonopin 1 2020- No 1{table TID take 1 11/21/2019 [facility] mg tablet 3- 05-04 t} tablet by Spoke to [facility] 00:00: 00:00 oral route Adán from 00 :00 [facility] times [facility], as needed he advised that patient filled medicatio n on 0 and is not due for fill, medicatio n not filled .--AG,RN tizanidine 2020- No 1{table QID take 1 11/21/2019 [facility] 4 mg tablet 3-06 05-04 t} tablet by Pt needs [facility] 00:00: 00:00 oral route apt for 00 :00 every 6 - further 8 hours as fills, needed not --AG,RN to exceed 3 doses in 24 hours as needed Klonopin 1 2020- No 1{table TID take 1 11/21/2019 [facility] mg tablet 3-06 05-04 t} tablet by Spoke to [facility] 00:00: 00:00 oral route Adán from 00 :00 [facility] times [facility], as needed he advised that patient filled medicatio n on 0 and is not due for fill, medicatio n not filled .--AG,RN tizanidine 2020- No 1{table QID take 1 11/21/2019 [facility] 4 mg tablet 3-06 05-04 t} tablet by Pt needs [facility] 00:00: 00:00 oral route apt for 00 :00 every 6 - further 8 hours as fills, needed not --AG,RN to exceed 3 doses in 24 hours as needed Klonopin 1 2020- No 1{table TID take 1 11/21/2019 [facility] mg tablet 3-06 05-04 t} tablet by Spoke to [facility] 00:00: 00:00 oral route Adán from 00 :00 [facility] times [facility], as needed he advised that patient filled medicatio n on 0 and is not due for fill, medicatio n not filled .--AG,RN tizanidine 2020- No 1{table QID take 1 11/21/2019 [facility] 4 mg tablet 3-06 05-04 t} tablet by Pt needs [facility] 00:00: 00:00 oral route apt for 00 :00 every 6 - further 8 hours as fills, needed not --AG,RN to exceed 3 doses in 24 hours as needed Klonopin 1 2020- No 1{table TID take 1 11/21/2019 [facility] mg tablet 3- 05-04 t} tablet by Spoke to [facility] 00:00: 00:00 oral route Adán from 00 :00 [facility] times [facility], as needed he advised that patient filled medicatio n on 0 and is not due for fill, medicatio n not filled .--AG,RN tizanidine 2020- No 1{table QID take 1 11/21/2019 [facility] 4 mg tablet 3- 05-04 t} tablet by Pt needs [facility] 00:00: 00:00 oral route apt for 00 :00 every 6 - further 8 hours as fills, needed not --AG,RN to exceed 3 doses in 24 hours as needed Klonopin 1 2020- No 1{table TID take 1 11/21/2019 [facility] mg tablet 3- 05-04 t} tablet by Spoke to [facility] 00:00: 00:00 oral route Adán from 00 :00 [facility] times [facility], as needed he advised that patient filled medicatio n on 0 and is not due for fill, medicatio n not filled .--AG,RN tizanidine 2020- No 1{table QID take 1 11/21/2019 [facility] 4 mg tablet 3- 05-04 t} tablet by Pt needs [facility] 00:00: 00:00 oral route apt for 00 :00 every 6 - further 8 hours as fills, needed not --AG,RN to exceed 3 doses in 24 hours as needed Klonopin 1 2020- No 1{table TID take 1 11/21/2019 [facility] mg tablet 3-06 05-04 t} tablet by Spoke to [facility] 00:00: 00:00 oral route Adán from 00 :00 [facility] times [facility], as needed he advised that patient filled medicatio n on 0 and is not due for fill, medicatio n not filled .--AG,RN tizanidine 2020- No 1{table QID take 1 11/21/2019 [facility] 4 mg tablet 3-06 05-04 t} tablet by Pt needs ealt 00:00: 00:00 oral route apt for 00 :00 every 6 - further 8 hours as fills, needed not --AG,RN to exceed 3 doses in 24 hours as needed Klonopin 1 2020- No 1{table TID take 1 11/21/2019 [facility] mg tablet 3-06 05-04 t} tablet by Spoke to [facility] 00:00: 00:00 oral route Adán from 00 :00 [facility] times [facility], as needed he advised that patient filled medicatio n on 0 and is not due for fill, medicatio n not filled .--AG,RN tizanidine 2019- No 1{table QID take 1 11/21/2019 [facility] 4 mg tablet 3-06 05-04 t} tablet by Pt needs ealt 00:00: 00:00 oral route apt for 00 :00 every 6 - further 8 hours as fills, needed not --AG,RN to exceed 3 doses in 24 hours as needed Klonopin 1 2020- No 1{table TID take 1 11/21/2019 [facility] mg tablet 3-06 05-04 t} tablet by Spoke to [facility] 00:00: 00:00 oral route Adán from 00 :00 [facility] times [facility], as needed he advised that patient filled medicatio n on 0 and is not due for fill, medicatio n not filled .--AG,RN tizanidine 2020- No 1{table QID take 1 11/21/2019 [facility] 4 mg tablet 3-06 05-04 t} tablet by Pt needs ealt 00:00: 00:00 oral route apt for 00 :00 every 6 - further 8 hours as fills, needed not --AG,RN to exceed 3 doses in 24 hours as needed Klonopin 1 2019- No 1{table TID take 1 11/21/2019 [facility] mg tablet 3-06 05-04 t} tablet by Spoke to [facility] 00:00: 00:00 oral route Adán from 00 :00 [facility] times [facility], as needed he advised that patient filled medicatio n on and is not due for fill, medicatio n not filled .--AG,RN tizanidine 2020- No 1{table QID take 1 11/21/2019 [facility] 4 mg tablet 3-06 05-04 t} tablet by Pt needs ealth 00:00: 00:00 oral route apt for 00 :00 every 6 - further 8 hours as fills, needed not --AG,RN to exceed 3 doses in 24 hours as needed Klonopin 1 2019- No 1{table TID take 1 11/21/2019 [facility] mg tablet 3-06 05-04 t} tablet by Spoke to [facility] 00:00: 00:00 oral route Adán from 00 :00 [facility] times [facility], as needed he advised that patient filled medicatio n on and is not due for fill, medicatio n not filled .--AG,RN tizanidine 2019- No 1{table QID take 1 11/21/2019 [facility] 4 mg tablet 3-06 05-04 t} tablet by Pt needs ealth 00:00: 00:00 oral route apt for 00 :00 every 6 - further 8 hours as fills, needed not --AG,RN to exceed 3 doses in 24 hours as needed Klonopin 1 2019- No 1{table TID take 1 11/21/2019 [facility] mg tablet 3-06 05-04 t} tablet by Spoke to [facility] 00:00: 00:00 oral route Adán from 00 :00 [facility] times [facility], as needed he advised that patient filled medicatio n on 0 and is not due for fill, medicatio n not filled .--AG,RN tizanidine 2020- No 1{table QID take 1 11/21/2019 [facility] 4 mg tablet 3-06 05-04 t} tablet by Pt needs ealth 00:00: 00:00 oral route apt for 00 :00 every 6 - further 8 hours as fills, needed not --AG,RN to exceed 3 doses in 24 hours as needed Klonopin 1 2020- No 1{table TID take 1 11/21/2019 [facility] mg tablet 3-06 05-04 t} tablet by Spoke to [facility] 00:00: 00:00 oral route Adán from 00 :00 [facility] times [facility], as needed he advised that patient filled medicatio n on 0 and is not due for fill, medicatio n not filled .--AG,RN tizanidine 2020- No 1{table QID take 1 11/21/2019 [facility] 4 mg tablet 3-06 05-04 t} tablet by Pt needs [facility] 00:00: 00:00 oral route apt for 00 :00 every 6 - further 8 hours as fills, needed not --AG,RN to exceed 3 doses in 24 hours as needed Klonopin 1 2020- No 1{table TID take 1 11/21/2019 [facility] mg tablet 3-06 05-04 t} tablet by Spoke to [facility] 00:00: 00:00 oral route Adán from 00 :00 [facility] times [facility], as needed he advised that patient filled medicatio n on 0 and is not due for fill, medicatio n not filled .--AG,RN tizanidine 2020- No 1{table QID take 1 11/21/2019 [facility] 4 mg tablet 3- 05-04 t} tablet by Pt needs [facility] 00:00: 00:00 oral route apt for 00 :00 every 6 - further 8 hours as fills, needed not --AG,RN to exceed 3 doses in 24 hours as needed Klonopin 1 2020- No 1{table TID take 1 11/21/2019 [facility] mg tablet 3-06 05-04 t} tablet by Spoke to [facility] 00:00: 00:00 oral route Adán from 00 :00 [facility] times [facility], as needed he advised that patient filled medicatio n on 0 and is not due for fill, medicatio n not filled .--AG,RN tizanidine 2020- No 1{table QID take 1 11/21/2019 [facility] 4 mg tablet 3-06 05-04 t} tablet by Pt needs [facility] 00:00: 00:00 oral route apt for 00 :00 every 6 - further 8 hours as fills, needed not --AG,RN to exceed 3 doses in 24 hours as needed Klonopin 1 2020- No 1{table TID take 1 11/21/2019 [facility] mg tablet 3-06 05-04 t} tablet by Spoke to [facility] 00:00: 00:00 oral route Adán from 00 :00 [facility] times [facility], as needed he advised that patient filled medicatio n on 0 and is not due for fill, medicatio n not filled .--AG,RN tizanidine 2020- No 1{table QID take 1 11/21/2019 [facility] 4 mg tablet 3-06 05-04 t} tablet by Pt needs [facility] 00:00: 00:00 oral route apt for 00 :00 every 6 - further 8 hours as fills, needed not --AG,RN to exceed 3 doses in 24 hours as needed Klonopin 1 2020- No 1{table TID take 1 11/21/2019 [facility] mg tablet 3-06 05-04 t} tablet by Spoke to [facility] 00:00: 00:00 oral route Adán from 00 :00 3 times [facility], as needed he advised that patient filled medicatio n on 0 and is not due for fill, medicatio n not filled .--AG,RN tizanidine 2020- No 1{table QID take 1 11/21/2019 [facility] 4 mg tablet 3-06 05-04 t} tablet by Pt needs [facility] 00:00: 00:00 oral route apt for 00 :00 every 6 - further 8 hours as fills, needed not --AG,RN to exceed 3 doses in 24 hours as needed Klonopin 1 2020- No 1{table TID take 1 11/21/2019 [facility] mg tablet 3-06 05-04 t} tablet by Spoke to [facility] 00:00: 00:00 oral route Adán from 00 :00 [facility] times [facility], as needed he advised that patient filled medicatio n on 0 and is not due for fill, medicatio n not filled .--AG,RN tizanidine 2020- No 1{table QID take 1 11/21/2019 [facility] 4 mg tablet 3-06 05-04 t} tablet by Pt needs ealt 00:00: 00:00 oral route apt for 00 :00 every 6 - further 8 hours as fills, needed not --AG,RN to exceed 3 doses in 24 hours as needed Klonopin 1 2020- No 1{table TID take 1 11/21/2019 [facility] mg tablet 3-06 05-04 t} tablet by Spoke to [facility] 00:00: 00:00 oral route Adán from 00 :00 [facility] times [facility], as needed he advised that patient filled medicatio n on 0 and is not due for fill, medicatio n not filled .--LEONIERN tizanidine 2019- No 1{table QID take 1 11/21/2019 [facility] 4 mg tablet 3-06 05-04 t} tablet by Pt needs [facility] 00:00: 00:00 oral route apt for 00 :00 every 6 - further 8 hours as fills, needed not --AG,RN to exceed 3 doses in 24 hours as needed Klonopin 1 2019- No 1{table TID take 1 11/21/2019 [facility] mg tablet 3-06 05-04 t} tablet by Spoke to [facility] 00:00: 00:00 oral route Adán from 00 :00 [facility] times [facility], as needed he advised that patient filled medicatio n on 0 and is not due for fill, medicatio n not filled .--LEONIERN tizanidine 2020- No 1{table QID take 1 11/21/2019 [facility] 4 mg tablet 3-06 05-04 t} tablet by Pt needs [facility] 00:00: 00:00 oral route apt for 00 :00 every 6 - further 8 hours as fills, needed not --AG,RN to exceed 3 doses in 24 hours as needed Klonopin 1 2019- No 1{table TID take 1 11/21/2019 [facility] mg tablet 3-06 05-04 t} tablet by Spoke to [facility] 00:00: 00:00 oral route Adán from 00 :00 [facility] times [facility], as needed he advised that patient filled medicatio n on 0 and is not due for fill, medicatio n not filled .--AG,RN tizanidine 2020- No 1{table QID take 1 11/21/2019 [facility] 4 mg tablet 3-06 05-04 t} tablet by Pt needs ealth 00:00: 00:00 oral route apt for 00 :00 every 6 - further 8 hours as fills, needed not --AG,RN to exceed 3 doses in 24 hours as needed Klonopin 1 2020- No 1{table TID take 1 11/21/2019 [facility] mg tablet 3-06 05-04 t} tablet by Spoke to [facility] 00:00: 00:00 oral route Adán from 00 :00 [facility] times [facility], as needed he advised that patient filled medicatio n on 0 and is not due for fill, medicatio n not filled .--AG,RN tizanidine 2019- No 1{table QID take 1 11/21/2019 [facility] 4 mg tablet 3-06 05-04 t} tablet by Pt needs ealth 00:00: 00:00 oral route apt for 00 :00 every 6 - further 8 hours as fills, needed not --AG,RN to exceed 3 doses in 24 hours as needed Klonopin 1 2019- No 1{table TID take 1 11/21/2019 [facility] mg tablet 3-06 05-04 t} tablet by Spoke to [facility] 00:00: 00:00 oral route Adán from 00 :00 [facility] times [facility], as needed he advised that patient filled medicatio n on 0 and is not due for fill, medicatio n not filled .--AG,RN tizanidine 2020- No 1{table QID take 1 11/21/2019 [facility] 4 mg tablet 3-06 05-04 t} tablet by Pt needs ealth 00:00: 00:00 oral route apt for 00 :00 every 6 - further 8 hours as fills, needed not --AG,RN to exceed 3 doses in 24 hours as needed Klonopin 1 2020- No 1{table TID take 1 11/21/2019 [facility] mg tablet 3-06 05-04 t} tablet by Spoke to [facility] 00:00: 00:00 oral route Adán from 00 :00 3 times [facility], as needed he advised that patient filled medicatio n on 0 and is not due for fill, medicatio n not filled .--AG,RN tizanidine 2020- No 1{table QID take 1 11/21/2019 [facility] 4 mg tablet 3- 05-04 t} tablet by Pt needs [facility] 00:00: 00:00 oral route apt for 00 :00 every 6 - further 8 hours as fills, needed not --AG,RN to exceed 3 doses in 24 hours as needed Klonopin 1 2020- No 1{table TID take 1 11/21/2019 [facility] mg tablet 3- 05-04 t} tablet by Spoke to [facility] 00:00: 00:00 oral route Adán from 00 :00 3 times [facility], as needed he advised that patient filled medicatio n on 0 and is not due for fill, medicatio n not filled .--AG,RN tizanidine 2020- No 1{table QID take 1 11/21/2019 [facility] 4 mg tablet 3- 05-04 t} tablet by Pt needs [facility] 00:00: 00:00 oral route apt for 00 :00 every 6 - further 8 hours as fills, needed not --AG,RN to exceed 3 doses in 24 hours as needed Klonopin 1 2020- No 1{table TID take 1 11/21/2019 [facility] mg tablet 3-06 05-04 t} tablet by Spoke to [facility] 00:00: 00:00 oral route Adán from 00 :00 3 times [facility], as needed he advised that patient filled medicatio n on 0 and is not due for fill, medicatio n not filled .--AG,RN tizanidine 2020- No 1{table QID take 1 11/21/2019 [facility] 4 mg tablet 3-06 05-04 t} tablet by Pt needs [facility] 00:00: 00:00 oral route apt for 00 :00 every 6 - further 8 hours as fills, needed not --AG,RN to exceed 3 doses in 24 hours as needed Klonopin 1 2020- No 1{table TID take 1 11/21/2019 [facility] mg tablet 3-06 05-04 t} tablet by Spoke to [facility] 00:00: 00:00 oral route Adán from 00 :00 3 times [facility], as needed he advised that patient filled medicatio n on 0 and is not due for fill, medicatio n not filled .--AG,RN tizanidine 2020- No 1{table QID take 1 11/21/2019 [facility] 4 mg tablet 3-06 05-04 t} tablet by Pt needs [facility] 00:00: 00:00 oral route apt for 00 :00 every 6 - further 8 hours as fills, needed not --AG,RN to exceed 3 doses in 24 hours as needed Klonopin 1 2020- No 1{table TID take 1 11/21/2019 [facility] mg tablet 3-06 05-04 t} tablet by Spoke to [facility] 00:00: 00:00 oral route Adán from 00 :00 3 times [facility], as needed he advised that patient filled medicatio n on 0 and is not due for fill, medicatio n not filled .--AG,RN tizanidine 2020- No 1{table QID take 1 11/21/2019 [facility] 4 mg tablet 3-06 05-04 t} tablet by Pt needs [facility] 00:00: 00:00 oral route apt for 00 :00 every 6 - further 8 hours as fills, needed not --AG,RN to exceed 3 doses in 24 hours as needed tizanidine 2020- No 1{table QID take 1 11/21/2019 [facility] 4 mg tablet 3-06 05-04 t} tablet by Pt needs [facility] 00:00: 00:00 oral route apt for 00 :00 every 6 - further 8 hours as fills, needed not --AG,RN to exceed 3 doses in 24 hours as needed Klonopin 1 2020- No 1{table TID take 1 11/21/2019 [facility] mg tablet 3-06 05-04 t} tablet by Spoke to [facility] 00:00: 00:00 oral route Adán from 00 :00 [facility], as needed he advised that patient filled medicatio n on 0 and is not due for fill, medicatio n not filled .--JOSETTE HADLEY 1 2020- No 1{table TID take 1 11/21/2019 [facility] mg tablet 3-06 05-04 t} tablet by Spoke to [facility] 00:00: 00:00 oral route Ad[facility] from 00 :[facility] every day pharmacy, as needed he advised that patient filled medicatio n on 0 and is not due for fill, medicatio n not filled .--JOSETTE HADLEY tizanidine 2019- No 1{table QID take 1 11/21/2019 [facility] 4 mg tablet 3- 05-04 t} tablet by Pt needs [facility] 00:00: 00:00 oral route apt for 00 :00 every 6 - further 8 hours as fills, needed not --AG,RN to exceed 3 doses in 24 hours as needed Klonopin 1 2019- No 1{table TID take 1 11/21/2019 [facility] mg tablet 3- 05-04 t} tablet by Spoke to [facility] 00:00: 00:00 oral route Ad[facility] from 00 :00 3 times [facility], as needed he advised that patient filled medicatio n on 0 and is not due for fill, medicatio n not filled .--JOSETTE HADLEY tizanidine 2019- No 1{table QID take 1 11/21/2019 [facility] 4 mg tablet 3-06 05-04 t} tablet by Pt needs [facility] 00:00: 00:00 oral route apt for 00 :00 every 6 - further 8 hours as fills, needed not --AG,RN to exceed 3 doses in 24 hours as needed Klonopin 1 2019- No 1{table TID take 1 11/21/2019 [facility] mg tablet 3-06 05-04 t} tablet by Spoke to [facility] 00:00: 00:00 oral route Adán from 00 :00 [facility], as needed he advised that patient filled medicatio n on 0 and is not due for fill, medicatio n not filled .--AG,RN tizanidine 2020- No 1{table QID take 1 11/21/2019 [facility] 4 mg tablet 3- 05-04 t} tablet by Pt needs [facility] 00:00: 00:00 oral route apt for 00 :00 every 6 - further 8 hours as fills, needed not --AG,RN to exceed 3 doses in 24 hours as needed Klonopin 1 2020- No 1{table TID take 1 11/21/2019 [facility] mg tablet 3- 05-04 t} tablet by Spoke to [facility] 00:00: 00:00 oral route Adán from 00 :00 [facility], as needed he advised that patient filled medicatio n on 0 and is not due for fill, medicatio n not filled .--AG,RN tizanidine 2019- No 1{table QID take 1 11/21/2019 [facility] 4 mg tablet 3 05-04 t} tablet by Pt needs [facility] 00:00: 00:00 oral route apt for 00 :00 every 6 - further 8 hours as fills, needed not --AG,RN to exceed 3 doses in 24 hours as needed Klonopin 1 2020- No 1{table TID take 1 11/21/2019 [facility] mg tablet 3- 05-04 t} tablet by Spoke to [facility] 00:00: 00:00 oral route Adán from 00 :00 [facility], as needed he advised that patient filled medicatio n on 0 and is not due for fill, medicatio n not filled .--AG,RN tizanidine 2020- No 1{table QID take 1 11/21/2019 [facility] 4 mg tablet 3- 05-04 t} tablet by Pt needs [facility] 00:00: 00:00 oral route apt for 00 :00 every 6 - further 8 hours as fills, needed not --AG,RN to exceed 3 doses in 24 hours as needed Klonopin 1 2020- No 1{table TID take 1 11/21/2019 [facility] mg tablet 3- 05-04 t} tablet by Spoke to [facility] 00:00: 00:00 oral route Adán from 00 :00 [facility], as needed he advised that patient filled medicatio n on 0 and is not due for fill, medicatio n not filled .--AG,RN tizanidine 2020- No 1{table QID take 1 11/21/2019 [facility] 4 mg tablet 3- 05-04 t} tablet by Pt needs [facility] 00:00: 00:00 oral route apt for 00 :00 every 6 - further 8 hours as fills, needed not --AG,RN to exceed 3 doses in 24 hours as needed Klonopin 1 2020- No 1{table TID take 1 11/21/2019 [facility] mg tablet 3- 05-04 t} tablet by Spoke to [facility] 00:00: 00:00 oral route Adán from 00 :00 [facility] times [facility], as needed he advised that patient filled medicatio n on 0 and is not due for fill, medicatio n not filled .--AG,RN tizanidine 2020- No 1{table QID take 1 11/21/2019 [facility] 4 mg tablet 3 05-04 t} tablet by Pt needs [facility] 00:00: 00:00 oral route apt for 00 :00 every 6 - further 8 hours as fills, needed not --AG,RN to exceed 3 doses in 24 hours as needed Klonopin 1 2020- No 1{table TID take 1 11/21/2019 [facility] mg tablet 3- 05-04 t} tablet by Spoke to [facility] 00:00: 00:00 oral route Adán from 00 :00 [facility] times [facility], as needed he advised that patient filled medicatio n on 0 and is not due for fill, medicatio n not filled .--AG,RN tizanidine 2020- No 1{table QID take 1 11/21/2019 [facility] 4 mg tablet 3-06 05-04 t} tablet by Pt needs [facility] 00:00: 00:00 oral route apt for 00 :00 every 6 - further 8 hours as fills, needed not --AG,RN to exceed 3 doses in 24 hours as needed Klonopin 1 2019- 2020- No 1{table TID take 1 11/21/2019 [facility] mg tablet 12-19-04 t} tablet by Spoke to [facility] 00:00: 00:00 oral route Adán from 00 :[facility], as needed he advised that patient filled medicatio n on 0 and is not due for fill, medicatio n not filled .--AG,RN ProAir HFA 2019-2019- No 1{puff} Q4H inhale 1 11/21/2019 [facility] 90 3-06 04-16 puff by Pt needs [facility] 00:00: 00:00 inhalation apt for on aerosol 00 :00 route further inhaler every 4 fills, hours as --AG,RN needed ProAir HFA 2019-2019- No 1{puff} Q4H inhale 1 11/21/2019 [facility] 90 3-06 04-16 puff by Pt needs [facility] 00:00: 00:00 inhalation apt for on aerosol 00 :00 route further inhaler every 4 fills, hours as --AG,RN needed ProAir HFA 2019- 2020- No 1{puff} Q4H inhale 1 11/21/2019 [facility] 90 3-06 04-16 puff by Pt needs [facility]ati 00:00: 00:00 inhalation apt for on aerosol 00 :00 route further inhaler every 4 fills, hours as --AG,RN needed ProAir HFA 2019- 2020- No 1{puff} Q4H inhale 1 11/21/2019 [facility] 90 3-06 04-16 puff by Pt needs [facility] 00:00: 00:00 inhalation apt for on aerosol 00 :00 route further inhaler every 4 fills, hours as --AG,RN needed ProAir HFA 2019-0 2020- No 1{puff} Q4H inhale 1 11/21/2019 [facility] 90 3-06 04-16 puff by Pt needs [facility] 00:00: 00:00 inhalation apt for on aerosol 00 :00 route further inhaler every 4 fills, hours as --AG,RN needed ProAir HFA 2020-0 2020- No 1{puff} Q4H inhale 1 11/21/2019 [facility] 3-06 04-16 puff by Pt needs [facility] 00:00: 00:00 inhalation apt for on aerosol 00 :00 route further inhaler every 4 fills, hours as --AG,RN needed ProAir HFA 2020-0 2020- No 1{puff} Q4H inhale 1 11/21/2019 [facility] 90 3-06 04-16 puff by Pt needs ealth mcg/actuati 00:00: 00:00 inhalation apt for on aerosol 00 :00 route further inhaler every 4 fills, hours as --AG,RN needed ProAir HFA 2020-0 2020- No 1{puff} Q4H inhale 1 11/21/2019 [facility] 90 3-06 04-16 puff by Pt needs [facility] mcg/actuati 00:00: 00:00 inhalation apt for on aerosol 00 :00 route further inhaler every 4 fills, hours as --AG,RN needed ProAir HFA 2020-0 2020- No 1{puff} Q4H inhale 1 11/21/2019 [facility] 90 3-06 04-16 puff by Pt needs [facility] mcg/actuati 00:00: 00:00 inhalation apt for on aerosol 00 :00 route further inhaler every 4 fills, hours as --AG,RN needed ProAir HFA 2020-0 2020- No 1{puff} Q4H inhale 1 11/21/2019 [facility] 90 3-06 04-16 puff by Pt needs [facility] mcg/actuati 00:00: 00:00 inhalation apt for on aerosol 00 :00 route further inhaler every 4 fills, hours as --AG,RN needed ProAir HFA 2020-0 2020- No 1{puff} Q4H inhale 1 11/21/2019 [facility] 90 3-06 04-16 puff by Pt needs [facility] mcg/actuati 00:00: 00:00 inhalation apt for on aerosol 00 :00 route further inhaler every 4 fills, hours as --AG,RN needed ProAir HFA 2020-0 2020- No 1{puff} Q4H inhale 1 11/21/2019 [facility] 90 3-06 04-16 puff by Pt needs [facility] m[facility]ati 00:00: 00:00 inhalation apt for on aerosol 00 :00 route further inhaler every 4 fills, hours as --AG,RN needed ProAir HFA 2020-0 2020- No 1{puff} Q4H inhale 1 11/21/2019 [facility] 90 3-06 04-16 puff by Pt needs e[facility] mcg/actuati 00:00: 00:00 inhalation apt for on aerosol 00 :00 route further inhaler every 4 fills, hours as --AG,RN needed ProAir HFA 2020-0 2020- No 1{puff} Q4H inhale 1 11/21/2019 [facility] 90 3-06 04-16 puff by Pt needs [facility] mcg/actuati 00:00: 00:00 inhalation apt for on aerosol 00 :00 route further inhaler every 4 fills, hours as --AG,RN needed ProAir HFA 2020-0 2020- No 1{puff} Q4H inhale 1 11/21/2019 [facility] 90 3-06 04-16 puff by Pt needs [facility]alth mcg/actuati 00:00: 00:00 inhalation apt for on aerosol 00 :00 route further inhaler every 4 fills, hours as --AG,RN needed ProAir HFA 2020-0 2020- No 1{puff} Q4H inhale 1 11/21/2019 [facility] 90 3-06 04-16 puff by Pt needs e[facility] mcg/actuati 00:00: 00:00 inhalation apt for on aerosol 00 :00 route further inhaler every 4 fills, hours as --AG,RN needed ProAir HFA 2020-0 2020- No 1{puff} Q4H inhale 1 11/21/2019 [facility] 90 3-06 04-16 puff by Pt needs [facility] mcg/actuati 00:00: 00:00 inhalation apt for on aerosol 00 :00 route further inhaler every 4 fills, hours as --AG,RN needed ProAir HFA 2020-0 2020- No 1{puff} Q4H inhale 1 11/21/2019 [facility] 90 3-06 04-16 puff by Pt needs [facility] m[facility]ati 00:00: 00:00 inhalation apt for on aerosol 00 :00 route further inhaler every 4 fills, hours as --AG,RN needed ProAir HFA 2020-0 2020- No 1{puff} Q4H inhale 1 11/21/2019 [facility] 90 3-06 04-16 puff by Pt needs [facility] m[facility]ati 00:00: 00:00 inhalation apt for on aerosol 00 :00 route further inhaler every 4 fills, hours as --AG,RN needed ProAir HFA 2020-0 2020- No 1{puff} Q4H inhale 1 11/21/2019 [facility] 90 3-06 04-16 puff by Pt needs [facility] m[facility]ati 00:00: 00:00 inhalation apt for on aerosol 00 :00 route further inhaler every 4 fills, hours as --AG,RN needed ProAir HFA 2020-0 2020- No 1{puff} Q4H inhale 1 11/21/2019 [facility] 90 3-06 04-16 puff by Pt needs [facility] m[facility]ati 00:00: 00:00 inhalation apt for on aerosol 00 :00 route further inhaler every 4 fills, hours as --AG,RN needed ProAir HFA 2020-0 2020- No 1{puff} Q4H inhale 1 11/21/2019 [facility] 90 3-06 04-16 puff by Pt needs [facility] mcg/actuati 00:00: 00:00 inhalation apt for on aerosol 00 :00 route further inhaler every 4 fills, hours as --AG,RN needed ProAir HFA 2020-0 2020- No 1{puff} Q4H inhale 1 11/21/2019 [facility] 90 3-06 04-16 puff by Pt needs [facility] mcg/actuati 00:00: 00:00 inhalation apt for on aerosol 00 :00 route further inhaler every 4 fills, hours as --AG,RN needed ProAir HFA 2020-0 2020- No 1{puff} Q4H inhale 1 11/21/2019 [facility] 90 3-06 04-16 puff by Pt needs [facility] mcg[facility]actuati 00:00: 00:00 inhalation apt for on aerosol 00 :00 route further inhaler every 4 fills, hours as --AG,RN needed ProAir HFA 2020-0 2020- No 1{puff} Q4H inhale 1 11/21/2019 [facility] 90 3-06 04-16 puff by Pt needs [facility] mcg/actuati 00:00: 00:00 inhalation apt for on aerosol 00 :00 route further inhaler every 4 fills, hours as --AG,RN needed ProAir HFA 2020-0 2020- No 1{puff} Q4H inhale 1 11/21/2019 [facility] 90 3-06 04-16 puff by Pt needs [facility] mcg/actuati 00:00: 00:00 inhalation apt for on aerosol 00 :00 route further inhaler every 4 fills, hours as --AG,RN needed ProAir HFA 2020-0 2020- No 1{puff} Q4H inhale 1 11/21/2019 [facility] 90 3-06 04-16 puff by Pt needs ealth mcg/actuati 00:00: 00:00 inhalation apt for on aerosol 00 :00 route further inhaler every 4 fills, hours as --AG,RN needed ProAir HFA 2020-0 2020- No 1{puff} Q4H inhale 1 11/21/2019 [facility] 90 3-06 04-16 puff by Pt needs ealth mcg/actuati 00:00: 00:00 inhalation apt for on aerosol 00 :00 route further inhaler every 4 fills, hours as --AG,RN needed ProAir HFA 2020-0 2020- No 1{puff} Q4H inhale 1 11/21/2019 [facility] 90 3-06 04-16 puff by Pt needs [facility]alth mcg/actuati 00:00: 00:00 inhalation apt for on aerosol 00 :00 route further inhaler every 4 fills, hours as --AG,RN needed ProAir HFA 2020-0 2020- No 1{puff} Q4H inhale 1 11/21/2019 [facility] 90 3-06 04-16 puff by Pt needs [facility]ati 00:00: 00:00 inhalation apt for on aerosol 00 :00 route further inhaler every 4 fills, hours as --AG,RN needed ProAir HFA 2020-0 2020- No 1{puff} Q4H inhale 1 11/21/2019 [facility] 90 3-06 04-16 puff by Pt needs [facility] mcg/actuati 00:00: 00:00 inhalation apt for on aerosol 00 :00 route further inhaler every 4 fills, hours as --AG,RN needed ProAir HFA 2020-0 2020- No 1{puff} Q4H inhale 1 11/21/2019 [facility] 90 3-06 04-16 puff by Pt needs [facility]alth mcg/actuati 00:00: 00:00 inhalation apt for on aerosol 00 :00 route further inhaler every 4 fills, hours as --AG,RN needed ProAir HFA 2020-0 2020- No 1{puff} Q4H inhale 1 11/21/2019 [facility] 90 3-06 04-16 puff by Pt needs ealth mcg/actuati 00:00: 00:00 inhalation apt for on aerosol 00 :00 route further inhaler every 4 fills, hours as --AG,RN needed ProAir HFA 2020-0 2020- No 1{puff} Q4H inhale 1 11/21/2019 [facility] 90 3-06 04-16 puff by Pt needs [facility] mcg/actuati 00:00: 00:00 inhalation apt for on aerosol 00 :00 route further inhaler every 4 fills, hours as --AG,RN needed ProAir HFA 2020-0 2020- No 1{puff} Q4H inhale 1 11/21/2019 [facility] 90 3-06 04-16 puff by Pt needs [facility]alth mcg/actuati 00:00: 00:00 inhalation apt for on aerosol 00 :00 route further inhaler every 4 fills, hours as --AG,RN needed ProAir HFA 2020-0 2020- No 1{puff} Q4H inhale 1 11/21/2019 [facility] 90 3-06 04-16 puff by Pt needs [facility]alth mcg/actuati 00:00: 00:00 inhalation apt for on aerosol 00 :00 route further inhaler every 4 fills, hours as --AG,RN needed ProAir HFA 2020-0 2020- No 1{puff} Q4H inhale 1 11/21/2019 [facility] 90 3-06 04-16 puff by Pt needs [facility] mcg/actuati 00:00: 00:00 inhalation apt for on aerosol 00 :00 route further inhaler every 4 fills, hours as --AG,RN needed ProAir HFA 2019-0 2020- No 1{puff} Q4H inhale 1 11/21/2019 [facility] 90 3-06 04-16 puff by Pt needs [facility]ati 00:00: 00:00 inhalation apt for on aerosol 00 :00 route further inhaler every 4 fills, hours as --AG,RN needed meloxicam 2020-0 2020- No 2{table QD take 2 11/21/2019 [facility] 7.5 mg 3- 04-07 t} tablet by Pt needs eal th tablet 00:00: 00:00 oral route apt for 00 :00 every day further as needed fills, --AG,RN meloxicam 2019-0 2020- No 2{table QD take 2 11/21/2019 [facility] 7.5 mg 3- 04-07 t} tablet by Pt needs eal th tablet 00:00: 00:00 oral route apt for 00 :00 every day further as needed fills, --AG,RN meloxicam 2019-0 2020- No 2{table QD take 2 11/21/2019 [facility] 7.5 mg 3- 04-07 t} tablet by Pt needs [facility] tablet 00:00: 00:00 oral route apt for 00 :00 every day further as needed fills, --AG,RN meloxicam 2020-0 2020- No 2{table QD take 2 11/21/2019 [facility] 7.5 mg 3- 04-07 t} tablet by Pt needs [facility] tablet 00:00: 00:00 oral route apt for 00 :00 every day further as needed fills, --AG,RN meloxicam 2020-0 2020- No 2{table QD take 2 11/21/2019 [facility] 7.5 mg 3-06 04-07 t} tablet by Pt needs eal [facility] tablet 00:00: 00:00 oral route apt for 00 :00 every day further as needed fills, --AG,RN meloxicam 2020-0 2020- No 2{table QD take 2 11/21/2019 [facility] 7.5 mg 3-06 04-07 t} tablet by Pt needs eal [facility] tablet 00:00: 00:00 oral route apt for 00 :00 every day further as needed fills, --AG,RN meloxicam 2019-0 2020- No 2{table QD take 2 11/21/2019 [facility] 7.5 mg 3-06 04-07 t} tablet by Pt needs [facility] tablet 00:00: 00:00 oral route apt for 00 :00 every day further as needed fills, --AG,RN meloxicam 2020- No 2{table QD take 2 11/21/2019 [facility] 7.5 mg 3-06 04-07 t} tablet by Pt needs [facility] tablet 00:00: 00:00 oral route apt for 00 :00 every day further as needed fills, --AG,RN meloxicam 2019- 2020- No 2{table QD take 2 11/21/2019 [facility] 7.5 mg 3-06 04-07 t} tablet by Pt needs [facility] tablet 00:00: 00:00 oral route apt for 00 :00 every day further as needed fills, --AG,RN meloxicam 2019- 2020- No 2{table QD take 2 11/21/2019 [facility] 7.5 mg 3-06 04-07 t} tablet by Pt needs [facility] tablet 00:00: 00:00 oral route apt for 00 :00 every day further as needed fills, --AG,RN meloxicam 2019- 2020- No 2{table QD take 2 11/21/2019 [facility] 7.5 mg 3-06 04-07 t} tablet by Pt needs [facility] tablet 00:00: 00:00 oral route apt for 00 :00 every day further as needed fills, --AG,RN meloxicam 2019- 2020- No 2{table QD take 2 11/21/2019 [facility] 7.5 mg 3-06 04-07 t} tablet by Pt needs [facility] tablet 00:00: 00:00 oral route apt for 00 :00 every day further as needed fills, --AG,RN meloxicam 2019- 2020- No 2{table QD take 2 11/21/2019 [facility] 7.5 mg 3-06 04-07 t} tablet by Pt needs [facility] tablet 00:00: 00:00 oral route apt for 00 :00 every day further as needed fills, --AG,RN meloxicam 2019- 2020- No 2{table QD take 2 11/21/2019 [facility] 7.5 mg 3-06 04-07 t} tablet by Pt needs [facility] tablet 00:00: 00:00 oral route apt for 00 :00 every day further as needed fills, --AG,RN meloxicam 2019- No 2{table QD take 2 11/21/2019 [facility] 7.5 mg 3-06 04-07 t} tablet by Pt needs [facility] tablet 00:00: 00:00 oral route apt for 00 :00 every day further as needed fills, --AG,RN meloxicam 2019- No 2{table QD take 2 11/21/2019 [facility] 7.5 mg 3- 04-07 t} tablet by Pt needs [facility] tablet 00:00: 00:00 oral route apt for 00 :00 every day further as needed fills, --AG,RN meloxicam 2019- No 2{table QD take 2 11/21/2019 [facility] 7.5 mg 3- 04-07 t} tablet by Pt needs [facility] tablet 00:00: 00:00 oral route apt for 00 :00 every day further as needed fills, --AG,RN meloxicam 2020- No 2{table QD take 2 11/21/2019 [facility] 7.5 mg 3-06 04-07 t} tablet by Pt needs [facility] tablet 00:00: 00:00 oral route apt for 00 :00 every day further as needed fills, --AG,RN meloxicam 2019- No 2{table QD take 2 11/21/2019 [facility] 7.5 mg 3-06 04-07 t} tablet by Pt needs [facility] tablet 00:00: 00:00 oral route apt for 00 :00 every day further as needed fills, --AG,RN meloxicam 2019- 2020- No 2{table QD take 2 11/21/2019 [facility] 7.5 mg 3-06 04-07 t} tablet by Pt needs [facility] tablet 00:00: 00:00 oral route apt for 00 :00 every day further as needed fills, --AG,RN meloxicam 2019- 2020- No 2{table QD take 2 11/21/2019 [facility] 7.5 mg 3-06 04-07 t} tablet by Pt needs [facility] tablet 00:00: 00:00 oral route apt for 00 :00 every day further as needed fills, --AG,RN meloxicam 2019- 2020- No 2{table QD take 2 11/21/2019 [facility] 7.5 mg 3-06 04-07 t} tablet by Pt needs [facility] tablet 00:00: 00:00 oral route apt for 00 :00 every day further as needed fills, --AG,RN meloxicam 2019-2019- No 2{table QD take 2 11/21/2019 [facility] 7.5 mg 3-06 04-07 t} tablet by Pt needs [facility] tablet 00:00: 00:00 oral route apt for 00 :00 every day further as needed fills, --AG,RN meloxicam 2019- 2020- No 2{table QD take 2 11/21/2019 [facility] 7.5 mg 3-06 04-07 t} tablet by Pt needs [facility] tablet 00:00: 00:00 oral route apt for 00 :00 every day further as needed fills, --AG,RN meloxicam 2019-2019- No 2{table QD take 2 11/21/2019 [facility] 7.5 mg 3-06 04-07 t} tablet by Pt needs [facility] tablet 00:00: 00:00 oral route apt for 00 :00 every day further as needed fills, --AG,RN meloxicam 2019- 2020- No 2{table QD take 2 11/21/2019 [facility] 7[facility]5 mg 3-06 04-07 t} tablet by Pt needs [facility] tablet 00:00: 00:00 oral route apt for 00 :00 every day further as needed fills, --AG,RN meloxicam 2019- 2020- No 2{table QD take 2 11/21/2019 [facility] 7.5 mg 3-06 04-07 t} tablet by Pt needs [facility]al [facility] tablet 00:00: 00:00 oral route apt for 00 :00 every day further as needed fills, --AG,RN meloxicam 2019- 2020- No 2{table QD take 2 11/21/2019 [facility] 7.5 mg 3-06 04-07 t} tablet by Pt needs [facility] tablet 00:00: 00:00 oral route apt for 00 :00 every day further as needed fills, --AG,RN meloxicam 2019-0 2020- No 2{table QD take 2 11/21/2019 [facility] 7.5 mg 3-06 04-07 t} tablet by Pt needs [facility] tablet 00:00: 00:00 oral route apt for 00 :00 every day further as needed fills, --AG,RN meloxicam 2019-0 2020- No 2{table QD take 2 11/21/2019 [facility] 7.5 mg 3-06 04-07 t} tablet by Pt needs [facility]al [facility] tablet 00:00: 00:00 oral route apt for 00 :00 every day further as needed fills, --AG,RN meloxicam 2019- 2020- No 2{table QD take 2 11/21/2019 [facility] 7[facility]5 mg 3-06 04-07 t} tablet by Pt needs [facility] tablet 00:00: 00:00 oral route apt for 00 :00 every day further as needed fills, --AG,RN meloxicam 2019-0 2020- No 2{table QD take 2 11/21/2019 [facility] 7.5 mg 3-06 04-07 t} tablet by Pt needs [facility] tablet 00:00: 00:00 oral route apt for 00 :00 every day further as needed fills, --AG,RN meloxicam 2019-0 2020- No 2{table QD take 2 11/21/2019 [facility] 7[facility]5 mg 3-06 04-07 t} tablet by Pt needs eal th tablet 00:00: 00:00 oral route apt for 00 :00 every day further as needed fills, --AG,RN meloxicam 2019-0 2020- No 2{table QD take 2 11/21/2019 [facility] 7.5 mg 3-06 04-07 t} tablet by Pt needs eal th tablet 00:00: 00:00 oral route apt for 00 :00 every day further as needed fills, --AG,RN meloxicam 2019-0 2020- No 2{table QD take 2 11/21/2019 [facility] 7[facility]5 mg 3-06 04-07 t} tablet by Pt needs eal th tablet 00:00: 00:00 oral route apt for 00 :00 every day further as needed fills, --AG,RN meloxicam 2019- No 2{table QD take 2 11/21/2019 [facility] 7.5 mg 12-19- t} tablet by Pt needs eal th tablet 00:00: 00:00 oral route apt for 00 :00 every day further as needed fills, --AG,RN meloxicam 2019- No 2{table QD take 2 11/21/2019 [facility] 7.5 mg 12-19- t} tablet by Pt needs eal th tablet 00:00: 00:00 oral route apt for 00 :00 every day further as needed fills, --AG,RN meloxicam 2019- No 2{table QD take 2 11/21/2019 [facility] 7.5 mg 12-19- t} tablet by Pt needs eal th tablet 00:00: 00:00 oral route apt for 00 :00 every day further as needed fills, --AG,RN temazepam 2020- No 1{capsu Q1D take 1 [facility] 15 mg 3-03 18-23 le} capsule by [facility] capsule 00:00: 00:00 oral route 00 :00 every day at bedtime as needed temazepam 2019- 2020- No 1{capsu Q1D take 1 [facility] 15 mg 3-03 18-23 le} capsule by [facility] capsule 00:00: 00:00 oral route 00 :00 every day at bedtime as needed temazepam 2019-0 2020- No 1{capsu Q1D take 1 [facility] 15 mg 3-03 18-23 le} capsule by [facility] capsule 00:00: 00:00 oral route 00 :00 every day at bedtime as needed temazepam 2019-0 2020- No 1{capsu Q1D take 1 [facility] 15 mg 3-03 18-23 le} capsule by [facility] capsule 00:00: 00:00 oral route 00 :00 every day at bedtime as needed temazepam 2019-0 2020- No 1{capsu Q1D take 1 [facility] 15 mg 3-03 18-23 le} capsule by [facility] capsule 00:00: 00:00 oral route 00 :00 every day at bedtime as needed temazepam 2020-0 2020- No 1{capsu Q1D take 1 [facility] 15 mg 3-06 -23 le} capsule by [facility] capsule 00:00: 00:00 oral route 00 :00 every day at bedtime as needed temazepam 2020-0 2020- No 1{capsu Q1D take 1 [facility] 15 mg 3-06 -23 le} capsule by [facility] capsule 00:00: 00:00 oral route 00 :00 every day at bedtime as needed temazepam 2020-0 2020- No 1{capsu Q1D take 1 [facility] 15 mg 3-06 -23 le} capsule by [facility] capsule 00:00: 00:00 oral route 00 :00 every day at bedtime as needed temazepam 2020-0 2020- No 1{capsu Q1D take 1 [facility] 15 mg 3-03 18-23 le} capsule by [facility] capsule 00:00: 00:00 oral route 00 :00 every day at bedtime as needed temazepam 2020-0 2020- No 1{capsu Q1D take 1 [facility] 15 mg 3-06 -23 le} capsule by [facility] capsule 00:00: 00:00 oral route 00 :00 every day at bedtime as needed temazepam 2020-0 2020- No 1{capsu Q1D take 1 [facility] 15 mg 3-06 -23 le} capsule by [facility] capsule 00:00: 00:00 oral route 00 :00 every day at bedtime as needed temazepam 2020-0 2020- No 1{capsu Q1D take 1 [facility] 15 mg 3-06 -23 le} capsule by [facility] capsule 00:00: 00:00 oral route 00 :00 every day at bedtime as needed temazepam 2020-0 2020- No 1{capsu Q1D take 1 [facility] 15 mg 3-06 -23 le} capsule by [facility] capsule 00:00: 00:00 oral route 00 :00 every day at bedtime as needed temazepam 2020-0 2020- No 1{capsu Q1D take 1 [facility] 15 mg 3-06 -23 le} capsule by [facility] capsule 00:00: 00:00 oral route 00 :00 every day at bedtime as needed temazepam 2020-0 2020- No 1{capsu Q1D take 1 [facility] 15 mg 3-03 18-23 le} capsule by [facility] capsule 00:00: 00:00 oral route 00 :00 every day at bedtime as needed temazepam 2020-0 2020- No 1{capsu Q1D take 1 [facility] 15 mg 3-03 18-23 le} capsule by [facility] capsule 00:00: 00:00 oral route 00 :00 every day at bedtime as needed temazepam 2020-0 2020- No 1{capsu Q1D take 1 [facility] 15 mg 3-03 18-23 le} capsule by [facility] capsule 00:00: 00:00 oral route 00 :00 every day at bedtime as needed temazepam 2020-0 2020- No 1{capsu Q1D take 1 [facility] 15 mg 3-03 18-23 le} capsule by [facility] capsule 00:00: 00:00 oral route 00 :00 every day at bedtime as needed temazepam 2020-0 2020- No 1{capsu Q1D take 1 [facility] 15 mg 3-03 18- le} capsule by [facility] capsule 00:00: 00:00 oral route 00 :00 every day at bedtime as needed temazepam 2020-0 2020- No 1{capsu Q1D take 1 [facility] 15 mg 3-03 18- le} capsule by [facility] capsule 00:00: 00:00 oral route 00 :00 every day at bedtime as needed temazepam 2020-0 2020- No 1{capsu Q1D take 1 [facility] 15 mg 3-03 18- le} capsule by [facility] capsule 00:00: 00:00 oral route 00 :00 every day at bedtime as needed temazepam 2020-0 2020- No 1{capsu Q1D take 1 [facility] 15 mg 3-03 18-23 le} capsule by [facility]alth capsule 00:00: 00:00 oral route 00 :00 every day at bedtime as needed temazepam 2020-0 2020- No 1{capsu Q1D take 1 [facility] 15 mg 3-03 18-23 le} capsule by [facility]alth capsule 00:00: 00:00 oral route 00 :00 every day at bedtime as needed temazepam 2020-0 2020- No 1{capsu Q1D take 1 [facility] 15 mg 3-03 18-23 le} capsule by [facility]alth capsule 00:00: 00:00 oral route 00 :00 every day at bedtime as needed temazepam 2020-0 2020- No 1{capsu Q1D take 1 [facility] 15 mg 3-03 18-23 le} capsule by [facility]alth capsule 00:00: 00:00 oral route 00 :00 every day at bedtime as needed temazepam 2020-0 2020- No 1{capsu Q1D take 1 [facility] 15 mg 3-03 18-23 le} capsule by [facility] capsule 00:00: 00:00 oral route 00 :00 every day at bedtime as needed temazepam 2020-0 2020- No 1{capsu Q1D take 1 [facility] 15 mg 3-03 18-23 le} capsule by [facility] capsule 00:00: 00:00 oral route 00 :00 every day at bedtime as needed temazepam 2020-0 2020- No 1{capsu Q1D take 1 [facility] 15 mg 3-03 18-23 le} capsule by [facility] capsule 00:00: 00:00 oral route 00 :00 every day at bedtime as needed temazepam 2020-0 2020- No 1{capsu Q1D take 1 [facility] 15 mg 3-03 18-23 le} capsule by [facility] capsule 00:00: 00:00 oral route 00 :00 every day at bedtime as needed temazepam 2020-0 2020- No 1{capsu Q1D take 1 [facility] 15 mg 3-03 18-23 le} capsule by [facility] capsule 00:00: 00:00 oral route 00 :00 every day at bedtime as needed temazepam 2020-0 2020- No 1{capsu Q1D take 1 [facility] 15 mg 3-06 -23 le} capsule by [facility] capsule 00:00: 00:00 oral route 00 :00 every day at bedtime as needed temazepam 2020-0 2020- No 1{capsu Q1D take 1 [facility] 15 mg 3-06 -23 le} capsule by [facility] capsule 00:00: 00:00 oral route 00 :00 every day at bedtime as needed temazepam 2020-0 2020- No 1{capsu Q1D take 1 [facility] 15 mg 3-06 03-23 le} capsule by [facility] capsule 00:00: 00:00 oral route 00 :00 every day at bedtime as needed temazepam 2020-0 2020- No 1{capsu Q1D take 1 [facility] 15 mg 301-05 le} capsule by [facility] capsule 00:00: 00:00 oral route 00 :00 every day at bedtime as needed temazepam 2020-0 2020- No 1{capsu Q1D take 1 [facility] 15 mg 3-01-05 le} capsule by [facility] capsule 00:00: 00:00 oral route 00 :00 every day at bedtime as needed temazepam 2020-0 2020- No 1{capsu Q1D take 1 [facility] 15 mg 301-05 le} capsule by [facility] capsule 00:00: 00:00 oral route 00 :00 every day at bedtime as needed temazepam 2020-0 2020- No 1{capsu Q1D take 1 [facility] 15 mg 301-05 le} capsule by [facility] capsule 00:00: 00:00 oral route 00 :00 every day at bedtime as needed temazepam 2020-0 2020- No 1{capsu Q1D take 1 [facility] 15 mg 301-05 le} capsule by [facility] capsule 00:00: 00:00 oral route 00 :00 every day at bedtime as needed ferrous 2020-0 No 1{table Q1D take 1 11/21/2019 [facility] sulfate 325 2-06 t} tablet by Pt needs [facility] mg (65 mg 00:00: oral route apt for iron) 00 every day further tablet fills, --AG,RN ferrous 2020-0 No 1{table Q1D take 1 11/21/2019 [facility] sulfate 325 2-06 t} tablet by Pt needs [facility] mg (65 mg 00:00: oral route apt for iron) 00 every day further tablet fills, --AG,RN ferrous 2020-0 No 1{table Q1D take 1 11/21/2019 [facility] sulfate 325 2-06 t} tablet by Pt needs [facility] mg (65 mg 00:00: oral route apt for iron) 00 every day further tablet fills, --AG,RN ferrous 2020-0 No 1{table Q1D take 1 11/21/2019 [facility] sulfate 325 2-06 t} tablet by Pt needs [facility] mg (65 mg 00:00: oral route apt for iron) 00 every day further tablet fills, --AG,RN ferrous 2019-0 No 1{table Q1D take 1 11/21/2019 [facility] sulfate 325 2-06 t} tablet by Pt needs [facility] mg (65 mg 00:00: oral route apt for iron) 00 every day further tablet fills, --AG,RN ferrous 2019-0 No 1{table Q1D take 1 11/21/2019 [facility] sulfate 325 2-06 t} tablet by Pt needs [facility] mg (65 mg 00:00: oral route apt for iron) 00 every day further tablet fills, --AG,RN ferrous 2019-0 No 1{table Q1D take 1 11/21/2019 [facility] sulfate 325 2-06 t} tablet by Pt needs [facility] mg (65 mg 00:00: oral route apt for iron) 00 every day further tablet fills, --AG,RN ferrous 2019-0 No 1{table Q1D take 1 11/21/2019 [facility] sulfate 325 2-06 t} tablet by Pt needs [facility] mg (65 mg 00:00: oral route apt for iron) 00 every day further tablet fills, --AG,RN ferrous 2019-0 No 1{table Q1D take 1 11/21/2019 [facility] sulfate 325 2-06 t} tablet by Pt needs [facility] mg (65 mg 00:00: oral route apt for iron) 00 every day further tablet fills, --AG,RN ferrous 2019-0 No 1{table Q1D take 1 11/21/2019 [facility] sulfate 325 2-06 t} tablet by Pt needs [facility] mg (65 mg 00:00: oral route apt for iron) 00 every day further tablet fills, --AG,RN ferrous 2020-0 No 1{table Q1D take 1 11/21/2019 [facility] sulfate 325 2-06 t} tablet by Pt needs [facility] mg (65 mg 00:00: oral route apt for iron) 00 every day further tablet fills, --AG,RN ferrous 2020-0 No 1{table Q1D take 1 11/21/2019 [facility] sulfate 325 2-06 t} tablet by Pt needs [facility] mg (65 mg 00:00: oral route apt for iron) 00 every day further tablet fills, --AG,RN ferrous 2020-0 No 1{table Q1D take 1 11/21/2019 [facility] sulfate 325 2-06 t} tablet by Pt needs [facility] mg (65 mg 00:00: oral route apt for iron) 00 every day further tablet fills, --AG,RN ferrous 2020-0 No 1{table Q1D take 1 11/21/2019 [facility] sulfate 325 2-06 t} tablet by Pt needs [facility] mg (65 mg 00:00: oral route apt for iron) 00 every day further tablet fills, --AG,RN ferrous 2019-0 No 1{table Q1D take 1 11/21/2019 [facility] sulfate 325 2-06 t} tablet by Pt needs [facility] mg (65 mg 00:00: oral route apt for iron) 00 every day further tablet fills, --AG,RN ferrous 2019-0 No 1{table Q1D take 1 11/21/2019 [facility] sulfate 325 2-06 t} tablet by Pt needs [facility] mg (65 mg 00:00: oral route apt for iron) 00 every day further tablet fills, --AG,RN ferrous 2019-0 No 1{table Q1D take 1 11/21/2019 [facility] sulfate 325 2-06 t} tablet by Pt needs [facility] mg (65 mg 00:00: oral route apt for iron) 00 every day further tablet fills, --AG,RN ferrous 2020-0 No 1{table Q1D take 1 11/21/2019 [facility] sulfate 325 2-06 t} tablet by Pt needs [facility] mg (65 mg 00:00: oral route apt for iron) 00 every day further tablet fills, --AG,RN ferrous 2020-0 No 1{table Q1D take 1 11/21/2019 [facility] sulfate 325 2-06 t} tablet by Pt needs [facility] mg (65 mg 00:00: oral route apt for iron) 00 every day further tablet fills, --AG,RN ferrous 2020-0 No 1{table Q1D take 1 11/21/2019 [facility] sulfate 325 2-06 t} tablet by [facility] needs [facility] mg (65 mg 00:00: oral route apt for iron) 00 every day further tablet fills, --AG,RN ferrous 2020- No 1{table Q1D take 1 11/21/2019 [facility] sulfate 325 218 t} tablet by [facility] needs [facility] mg (65 mg 00:00: 00:00 oral route apt for iron) 00 :00 every day further tablet fills, --AG,RN ferrous 2020- No 1{table Q1D take 1 11/21/2019 [facility] sulfate 325 11-21 t} tablet by Pt needs [facility] mg (65 mg 00:00: 00:00 oral route apt for iron) 00 :00 every day further tablet fills, --AG,RN ferrous 2020- No 1{table Q1D take 1 11/21/2019 [facility] sulfate 325 11-21 t} tablet by Pt needs [facility] mg (65 mg 00:00: 00:00 oral route apt for iron) 00 :00 every day further tablet fills, --AG,RN ferrous 2020- No 1{table Q1D take 1 11/21/2019 [facility] sulfate 325 11-21 t} tablet by Pt needs [facility] mg (65 mg 00:00: 00:00 oral route apt for iron) 00 :00 every day further tablet fills, --AG,RN ferrous 2020- No 1{table Q1D take 1 11/21/2019 [facility] sulfate 325 11-2118 t} tablet by Pt needs [facility] mg (65 mg 00:00: 00:00 oral route apt for iron) 00 :00 every day further tablet fills, --AG,RN ferrous 2020- No 1{table Q1D take 1 11/21/2019 [facility] sulfate 325 11-2118 t} tablet by Pt needs [facility] mg (65 mg 00:00: 00:00 oral route apt for iron) 00 :00 every day further tablet fills, --AG,RN ferrous 2020- No 1{table Q1D take 1 11/21/2019 [facility] sulfate 325 218 t} tablet by Pt needs [facility] mg (65 mg 00:00: 00:00 oral route apt for iron) 00 :00 every day further tablet fills, --AG,RN ferrous 2020- No 1{table Q1D take 1 11/21/2019 [facility] sulfate 325 218 t} tablet by Pt needs [facility] mg (65 mg 00:00: 00:00 oral route apt for iron) 00 :00 every day further tablet fills, --AG,RN ferrous 2020- No 1{table Q1D take 1 11/21/2019 [facility] sulfate 325 11-2118 t} tablet by Pt needs [facility] mg (65 mg 00:00: 00:00 oral route apt for iron) 00 :00 every day further tablet fills, --AG,RN ferrous 2019- No 1{table Q1D take 1 11/21/2019 [facility] sulfate 325 11-21 t} tablet by Pt needs [facility] mg (65 mg 00:00: 00:00 oral route apt for iron) 00 :00 every day further tablet fills, --AG,RN ferrous 2019- No 1{table Q1D take 1 11/21/2019 [facility] sulfate 325 11-21 t} tablet by Pt needs [facility] mg (65 mg 00:00: 00:00 oral route apt for iron) 00 :00 every day further tablet fills, --AG,RN ferrous 2020- No 1{table Q1D take 1 11/21/2019 [facility] sulfate 325 11-2118 t} tablet by Pt needs [facility] mg (65 mg 00:00: 00:00 oral route apt for iron) 00 :00 every day further tablet fills, --AG,RN ferrous 2019- No 1{table Q1D take 1 11/21/2019 [facility] sulfate 325 11-2118 t} tablet by Pt needs [facility] mg (65 mg 00:00: 00:00 oral route apt for iron) 00 :00 every day further tablet fills, --AG,RN ferrous 2020- No 1{table Q1D take 1 11/21/2019 [facility] sulfate 325 218 t} tablet by Pt needs [facility] mg (65 mg 00:00: 00:00 oral route apt for iron) 00 :00 every day further tablet fills, --AG,RN ferrous 2020- No 1{table Q1D take 1 11/21/2019 [facility] sulfate 325 11-21 t} tablet by Pt needs [facility] mg (65 mg 00:00: 00:00 oral route apt for iron) 00 :00 every day further tablet fills, --AG,RN ferrous 2020- No 1{table Q1D take 1 11/21/2019 [facility] sulfate 325 11-21 t} tablet by Pt needs [facility] mg (65 mg 00:00: 00:00 oral route apt for iron) 00 :00 every day further tablet fills, --AG,RN ferrous 2020- No 1{table Q1D take 1 11/21/2019 [facility] sulfate 325 11-21 t} tablet by Pt needs [facility] mg (65 mg 00:00: 00:00 oral route apt for iron) 00 :00 every day further tablet fills, --AG,RN ferrous 2020- No 1{table Q1D take 1 11/21/2019 [facility] sulfate 325 11-21 t} tablet by Pt needs [facility] mg (65 mg 00:00: 00:00 oral route apt for iron) 00 :00 every day further tablet fills, --AG,RN butalbital- 2020- No 1{capsu Q4H take 1 - 2 11/21/19 20 [facility] acetaminoph 11-21 le} capsule by Pt needs [facility] en-caffeine 00:00: 00:00 oral route apt for 50 mg-325 00 :00 every 4 further mg-40 mg hours as fills, capsule needed not --AG,RN to exceed 6 capsules per 24hrs tizanidine 2020- No 1{table Q6H take 1 11/21/2019 [facility] 4 mg tablet 11-21 t} tablet by Pt needs [facility] 00:00: 00:00 oral route apt for 00 :00 every 6 - further 8 hours as fills, needed not --AG,RN to exceed 3 doses in 24 hours sertraline 2020- No 1{table Q12H take 1 11/21/2019 [facility] 100 mg 11-21 t} tablet by Pt needs e[facility] th tablet 00:00: 00:00 oral route apt for 00 :00 2 times further every day fills, --AG,RN ProAir HFA 2020- No 1{puff} Q4H inhale 1 11/21/2019 [facility] 90 11-21- puff by Pt needs [facility] mcg/actuati 00:00: 00:00 inhalation apt for on aerosol 00 :00 route further inhaler every 4 fills, hours as --AG,RN needed meloxicam 2019- No 2{table QD take 2 11/21/2019 [facility] 7.5 mg 11-21 t} tablet by Pt needs e[facility] tablet 00:00: 00:00 oral route apt for 00 :00 every day further as needed fills, --AG,RN gabapentin 2020- No 3{capsu Q8H take 3 11/21/2019 [facility] 300 mg 11-21 le} capsule by Pt needs [facility] capsule 00:00: 00:00 oral route apt for 00 :00 3 times further every day fills, --AG,RN Klonopin 1 2020- No 1{table Q8H take 1 11/21/2019 [facility] mg tablet 11-21 t} tablet by Spoke to [facility]alth 00:00: 00:00 oral route Ad[facility] from 00 :00 [facility] times [facility], he advised that patient filled medicatio n on 0 and is not due for fill, medicatio n not filled .--AG,RN butalbital- 2020- No 1{capsu Q4H take 1 - 2 11/21/19 20 [facility] acetaminoph 11-21- le} capsule by Pt needs [facility] en-caffeine 00:00: 00:00 oral route apt for 50 mg-325 00 :00 every 4 further mg-40 mg hours as fills, capsule needed not --AG,RN to exceed 6 capsules per 24hrs tizanidine 2020- No 1{table Q6H take 1 11/21/2019 [facility] 4 mg tablet 11-21- t} tablet by Pt needs [facility] 00:00: 00:00 oral route apt for 00 :00 every 6 - further 8 hours as fills, needed not --AG,RN to exceed 3 doses in 24 hours sertraline 2019- No 1{table Q12H take 1 11/21/2019 [facility] 100 mg 11-21 t} tablet by Pt needs eal th tablet 00:00: 00:00 oral route apt for 00 :00 2 times further every day fills, --AG,RN ProAir HFA 2019- No 1{puff} Q4H inhale 1 11/21/2019 [facility] 90 11-21 puff by Pt needs [facility] mcg/actuati 00:00: 00:00 inhalation apt for on aerosol 00 :00 route further inhaler every 4 fills, hours as --AG,RN needed meloxicam 2019- No 2{table QD take 2 11/21/2019 [facility] 7.5 mg 11-21 t} tablet by Pt needs eal th tablet 00:00: 00:00 oral route apt for 00 :00 every day further as needed fills, --AG,RN gabapentin 2019- No 3{capsu Q8H take 3 11/21/2019 [facility] 300 mg 11-21 le} capsule by Pt needs ea lt capsule 00:00: 00:00 oral route apt for 00 :00 3 times further every day fills, --AG,RN Klonopin 1 2020- No 1{table Q8H take 1 11/21/2019 [facility] mg tablet 11-21 t} tablet by Spoke to [facility] 00:00: 00:00 oral route Ad[facility] from 00 :[facility], he advised that patient filled medicatio n on 0 and is not due for fill, medicatio n not filled .--AG,RN butalbital- 2019- No 1{capsu Q4H take 1 - 2 11/21/19 20 [facility] acetaminoph 11-21 le} capsule by Pt needs ealt en-caffeine 00:00: 00:00 oral route apt for 50 mg-325 00 :00 every 4 further mg-40 mg hours as fills, capsule needed not --AG,RN to exceed 6 capsules per 24hrs tizanidine 2020- No 1{table Q6H take 1 11/21/2019 [facility] 4 mg tablet 11-21 t} tablet by Pt needs [facility] 00:00: 00:00 oral route apt for 00 :00 every 6 - further 8 hours as fills, needed not --AG,RN to exceed 3 doses in 24 hours sertraline 2020- No 1{table Q12H take 1 11/21/2019 [facility] 100 mg 11-21 t} tablet by Pt needs eal th tablet 00:00: 00:00 oral route apt for 00 :00 2 times further every day fills, --AG,RN ProAir HFA 2019- No 1{puff} Q4H inhale 1 11/21/2019 [facility] 90 11-21 puff by Pt needs [facility] mcg/actuati 00:00: 00:00 inhalation apt for on aerosol 00 :00 route further inhaler every 4 fills, hours as --AG,RN needed meloxicam 2019- No 2{table QD take 2 11/21/2019 [facility] 7.5 mg 11-21 t} tablet by Pt needs eal th tablet 00:00: 00:00 oral route apt for 00 :00 every day further as needed fills, --AG,RN gabapentin 2020- No 3{capsu Q8H take 3 11/21/2019 [facility] 300 mg 11-21 le} capsule by Pt needs e[facility] capsule 00:00: 00:00 oral route apt for 00 :00 3 times further every day fills, --AG,RN Klonopin 1 2020- No 1{table Q8H take 1 11/21/2019 [facility] mg tablet 11-21 t} tablet by Spoke to ealth 00:00: 00:00 oral route Ad[facility] from 00 :[facility], he advised that patient filled medicatio n on 0 and is not due for fill, medicatio n not filled .--AGRN butalbital- 2020- No 1{capsu Q4H take 1 - 2 11/21/19 20 [facility] acetaminoph 11-21- le} capsule by Pt needs ealth en-caffeine 00:00: 00:00 oral route apt for 50 mg-325 00 :00 every 4 further mg-40 mg hours as fills, capsule needed not --AG,RN to exceed 6 capsules per 24hrs tizanidine 2020- No 1{table Q6H take 1 11/21/2019 [facility] 4 mg tablet 11-21 t} tablet by Pt needs [facility] 00:00: 00:00 oral route apt for 00 :00 every 6 - further 8 hours as fills, needed not --AG,RN to exceed 3 doses in 24 hours sertraline 2020- No 1{table Q12H take 1 11/21/2019 [facility] 100 mg 11-21 t} tablet by Pt needs eal th tablet 00:00: 00:00 oral route apt for 00 :00 2 times further every day fills, --AG,RN ProAir HFA 2019- No 1{puff} Q4H inhale 1 11/21/2019 [facility] 90 11-21 puff by Pt needs [facility] mcg/actuati 00:00: 00:00 inhalation apt for on aerosol 00 :00 route further inhaler every 4 fills, hours as --AG,RN needed meloxicam 2020- No 2{table QD take 2 11/21/2019 [facility] 7.5 mg 11-21 t} tablet by Pt needs eal th tablet 00:00: 00:00 oral route apt for 00 :00 every day further as needed fills, --AG,RN gabapentin 2020- No 3{capsu Q8H take 3 11/21/2019 [facility] 300 mg 11-21 le} capsule by Pt needs e[facility] capsule 00:00: 00:00 oral route apt for 00 :00 3 times further every day fills, --AG,RN Klonopin 1 2020- No 1{table Q8H take 1 11/21/2019 [facility] mg tablet 11-21 t} tablet by Spoke to [facility] 00:00: 00:00 oral route Ad[facility] from 00 :[facility], he advised that patient filled medicatio n on 0 and is not due for fill, medicatio n not filled .--AGRN butalbital- 2020- No 1{capsu Q4H take 1 - 2 11/21/19 20 [facility] acetaminoph 11-21 le} capsule by Pt needs ealth en-caffeine 00:00: 00:00 oral route apt for 50 mg-325 00 :00 every 4 further mg-40 mg hours as fills, capsule needed not --AG,RN to exceed 6 capsules per 24hrs tizanidine 2020- No 1{table Q6H take 1 11/21/2019 [facility] 4 mg tablet 11-21 t} tablet by Pt needs [facility] 00:00: 00:00 oral route apt for 00 :00 every 6 - further 8 hours as fills, needed not --AG,RN to exceed 3 doses in 24 hours sertraline 2019- No 1{table Q12H take 1 11/21/2019 [facility] 100 mg 11-21 t} tablet by Pt needs eal th tablet 00:00: 00:00 oral route apt for 00 :00 2 times further every day fills, --AGRN ProAir HFA 2020- No 1{puff} Q4H inhale 1 11/21/2019 [facility] 90 11-21 puff by Pt needs [facility] mcg/actuati 00:00: 00:00 inhalation apt for on aerosol 00 :00 route further inhaler every 4 fills, hours as --AG,RN needed meloxicam 2019- No 2{table QD take 2 11/21/2019 [facility] 7.5 mg 11-21 t} tablet by Pt needs eal th tablet 00:00: 00:00 oral route apt for 00 :00 every day further as needed fills, --AG,RN gabapentin 2020- No 3{capsu Q8H take 3 11/21/2019 [facility] 300 mg 11-21 le} capsule by Pt needs ea [facility] capsule 00:00: 00:00 oral route apt for 00 :00 3 times further every day fills, --AG,RN Klonopin 1 2020- No 1{table Q8H take 1 11/21/2019 [facility] mg tablet 11-21- t} tablet by Spoke to ealth 00:00: 00:00 oral route Ad[facility] from 00 :[facility], he advised that patient filled medicatio n on 0 and is not due for fill, medicatio n not filled .--AG,RN butalbital- 2020- No 1{capsu Q4H take 1 - 2 11/21/19 20 [facility] acetaminoph 11-21 le} capsule by Pt needs ealth en-caffeine 00:00: 00:00 oral route apt for 50 mg-325 00 :00 every 4 further mg-40 mg hours as fills, capsule needed not --AG,RN to exceed 6 capsules per 24hrs tizanidine 2020- No 1{table Q6H take 1 11/21/2019 [facility] 4 mg tablet 11-21 t} tablet by Pt needs [facility]alth 00:00: 00:00 oral route apt for 00 :00 every 6 - further 8 hours as fills, needed not --AG,RN to exceed 3 doses in 24 hours sertraline 2020- No 1{table Q12H take 1 11/21/2019 [facility] 100 mg 11-21- t} tablet by Pt needs eal th tablet 00:00: 00:00 oral route apt for 00 :00 2 times further every day fills, --AG,RN ProAir HFA 2020- No 1{puff} Q4H inhale 1 11/21/2019 [facility] 90 11-21-06 puff by Pt needs e[facility] mcg/actuati 00:00: 00:00 inhalation apt for on aerosol 00 :00 route further inhaler every 4 fills, hours as --AG,RN needed meloxicam 2020- No 2{table QD take 2 11/21/2019 [facility] 7.5 mg 11-21 t} tablet by Pt needs eal th tablet 00:00: 00:00 oral route apt for 00 :00 every day further as needed fills, --AG,RN gabapentin 2020- No 3{capsu Q8H take 3 11/21/2019 [facility] 300 mg 11-21 le} capsule by Pt needs ea [facility] capsule 00:00: 00:00 oral route apt for 00 :00 3 times further every day fills, --AG,RN butalbital- 2020- No 1{capsu Q4H take 1 - 2 11/21/19 20 [facility] acetaminoph 11-21 le} capsule by Pt needs ealth en-caffeine 00:00: 00:00 oral route apt for 50 mg-325 00 :00 every 4 further mg-40 mg hours as fills, capsule needed not --AG,RN to exceed 6 capsules per 24hrs tizanidine 2019- No 1{table Q6H take 1 11/21/2019 [facility] 4 mg tablet 11-21 t} tablet by Pt needs ealth 00:00: 00:00 oral route apt for 00 :00 every 6 - further 8 hours as fills, needed not --AG,RN to exceed 3 doses in 24 hours sertraline 2019- No 1{table Q12H take 1 11/21/2019 [facility] 100 mg 11-21 t} tablet by Pt needs eal th tablet 00:00: 00:00 oral route apt for 00 :00 2 times further every day fills, --AG,RN ProAir HFA 2019- No 1{puff} Q4H inhale 1 11/21/2019 [facility] 90 11-21- puff by Pt needs e[facility] mcg/actuati 00:00: 00:00 inhalation apt for on aerosol 00 :00 route further inhaler every 4 fills, hours as --AG,RN needed meloxicam 2020- No 2{table QD take 2 11/21/2019 [facility] 7.5 mg 11-21- t} tablet by Pt needs eal th tablet 00:00: 00:00 oral route apt for 00 :00 every day further as needed fills, --AG,RN gabapentin 2020- No 3{capsu Q8H take 3 11/21/2019 [facility] 300 mg 11-21- le} capsule by Pt needs ea [facility] capsule 00:00: 00:00 oral route apt for 00 :00 3 times further every day fills, --AG,RN Klonopin 1 2020- No 1{table Q8H take 1 11/21/2019 [facility] mg tablet 11-21- t} tablet by Spoke to [facility] 00:00: 00:00 oral route Adán from 00 :[facility], he advised that patient filled medicatio n on 0 and is not due for fill, medicatio n not filled .--AG,RN Klonopin 1 2020- No 1{table Q8H take 1 11/21/2019 [facility] mg tablet 11-21 t} tablet by Spoke to [facility] 00:00: 00:00 oral route Adán from 00 :00 [facility], he advised that patient filled medicatio n on 0 and is not due for fill, medicatio n not filled .--AGRN butalbital- 2020- No 1{capsu Q4H take 1 - 2 11/21/19 20 [facility] acetaminoph 11-21 le} capsule by Pt needs ealt en-caffeine 00:00: 00:00 oral route apt for 50 mg-325 00 :00 every 4 further mg-40 mg hours as fills, capsule needed not --AG,RN to exceed 6 capsules per 24hrs Klonopin 1 2020- No 1{table Q8H take 1 11/21/2019 [facility] mg tablet 11-21- t} tablet by Spoke to [facility] 00:00: 00:00 oral route Adán from 00 :00 [facility], he advised that patient filled medicatio n on 0 and is not due for fill, medicatio n not filled .--AGRN gabapentin 2020- No 3{capsu Q8H take 3 11/21/2019 [facility] 300 mg 11-21- le} capsule by Pt needs ea l[facility] capsule 00:00: 00:00 oral route apt for 00 :00 3 times further every day fills, --AG,RN meloxicam 2020- No 2{table QD take 2 11/21/2019 [facility] 7.5 mg 11-21- t} tablet by Pt needs eal th tablet 00:00: 00:00 oral route apt for 00 :00 every day further as needed fills, --AG,RN ProAir HFA 2020- No 1{puff} Q4H inhale 1 11/21/2019 [facility] 90 -03 18- puff by Pt needs ealth mcg/actuati 00:00: 00:00 inhalation apt for on aerosol 00 :00 route further inhaler every 4 fills, hours as --AG,RN needed sertraline 2020- No 1{table Q12H take 1 11/21/2019 [facility] 100 mg 11-21- t} tablet by Pt needs eal th tablet 00:00: 00:00 oral route apt for 00 :00 2 times further every day fills, --AG,RN tizanidine 2020- No 1{table Q6H take 1 11/21/2019 [facility] 4 mg tablet 11-21- t} tablet by Pt needs ealth 00:00: 00:00 oral route apt for 00 :00 every 6 - further 8 hours as fills, needed not --AG,RN to exceed 3 doses in 24 hours butalbital- 2020- No 1{capsu Q4H take 1 - 2 11/21/19 20 [facility] acetaminoph 11-21- le} capsule by Pt needs ealth en-caffeine 00:00: 00:00 oral route apt for 50 mg-325 00 :00 every 4 further mg-40 mg hours as fills, capsule needed not --AG,RN to exceed 6 capsules per 24hrs tizanidine 2020- No 1{table Q6H take 1 11/21/2019 [facility] 4 mg tablet 11-21- t} tablet by Pt needs ealth 00:00: 00:00 oral route apt for 00 :00 every 6 - further 8 hours as fills, needed not --AG,RN to exceed 3 doses in 24 hours sertraline 2020- No 1{table Q12H take 1 11/21/2019 [facility] 100 mg 11-21- t} tablet by Pt needs eal th tablet 00:00: 00:00 oral route apt for 00 :00 2 times further every day fills, --LEONIERN ProAir HFA 2020- No 1{puff} Q4H inhale 1 11/21/2019 [facility] 90 11-21 puff by Pt needs ealth mcg/actuati 00:00: 00:00 inhalation apt for on aerosol 00 :00 route further inhaler every 4 fills, hours as --LEONIERN needed meloxicam 2019- No 2{table QD take 2 11/21/2019 [facility] 7.5 mg 11-21 t} tablet by Pt needs eal th tablet 00:00: 00:00 oral route apt for 00 :00 every day further as needed fills, --LEONIERN gabapentin 2020- No 3{capsu Q8H take 3 11/21/2019 [facility] 300 mg 11-21 le} capsule by Pt needs ea lth capsule 00:00: 00:00 oral route apt for 00 :00 3 times further every day fills, --JOSETTE HADLEY Klonopin 1 2020- No 1{table Q8H take 1 11/21/2019 [facility] mg tablet 11-21 t} tablet by Spoke to ealth 00:00: 00:00 oral route Adán from 00 :00 [facility] times [facility], he advised that patient filled medicatio n on 0 and is not due for fill, medicatio n not filled .--JOSETTE HADLEY butalbital- 2020- No 1{capsu Q4H take 1 - 2 11/21/19 20 [facility] acetaminoph 11-21 le} capsule by Pt needs ealth en-caffeine 00:00: 00:00 oral route apt for 50 mg-325 00 :00 every 4 further mg-40 mg hours as fills, capsule needed not --LEONIERN to exceed 6 capsules per 24hrs tizanidine 2020- No 1{table Q6H take 1 11/21/2019 [facility] 4 mg tablet 11-21 t} tablet by Pt needs ealth 00:00: 00:00 oral route apt for 00 :00 every 6 - further 8 hours as fills, needed not --AG,RN to exceed 3 doses in 24 hours sertraline 2019- No 1{table Q12H take 1 11/21/2019 [facility] 100 mg 11-21 t} tablet by Pt needs eal th tablet 00:00: 00:00 oral route apt for 00 :00 2 times further every day fills, --AG,RN ProAir HFA 2019- No 1{puff} Q4H inhale 1 11/21/2019 [facility] 90 11-21 puff by Pt needs ealth mcg/actuati 00:00: 00:00 inhalation apt for on aerosol 00 :00 route further inhaler every 4 fills, hours as --AG,RN needed meloxicam 2019- No 2{table QD take 2 11/21/2019 [facility] 7.5 mg 11-21 t} tablet by Pt needs eal th tablet 00:00: 00:00 oral route apt for 00 :00 every day further as needed fills, --AG,RN gabapentin 2019- No 3{capsu Q8H take 3 11/21/2019 [facility] 300 mg 11-21 le} capsule by Pt needs ea lth capsule 00:00: 00:00 oral route apt for 00 :00 3 times further every day fills, --AG,RN Klonopin 1 2020- No 1{table Q8H take 1 11/21/2019 [facility] mg tablet 11-21 t} tablet by Spoke to ealth 00:00: 00:00 oral route Adán from 00 :[facility], he advised that patient filled medicatio n on 0 and is not due for fill, medicatio n not filled .--AG,RN butalbital- 2020- No 1{capsu Q4H take 1 - 2 11/21/19 20 [facility] acetaminoph 11-21 le} capsule by Pt needs ealth en-caffeine 00:00: 00:00 oral route apt for 50 mg-325 00 :00 every 4 further mg-40 mg hours as fills, capsule needed not --AG,RN to exceed 6 capsules per 24hrs tizanidine 2020- No 1{table Q6H take 1 11/21/2019 [facility] 4 mg tablet 11-21 t} tablet by Pt needs ealth 00:00: 00:00 oral route apt for 00 :00 every 6 - further 8 hours as fills, needed not --AG,RN to exceed 3 doses in 24 hours sertraline 2019- No 1{table Q12H take 1 11/21/2019 [facility] 100 mg 11-21 t} tablet by Pt needs eal th tablet 00:00: 00:00 oral route apt for 00 :00 2 times further every day fills, --AG,RN ProAir HFA 2019- No 1{puff} Q4H inhale 1 11/21/2019 [facility] 90 11-21 puff by Pt needs ealth mcg/actuati 00:00: 00:00 inhalation apt for on aerosol 00 :00 route further inhaler every 4 fills, hours as --AG,RN needed meloxicam 2019- No 2{table QD take 2 11/21/2019 [facility] 7.5 mg 11-21 t} tablet by Pt needs eal th tablet 00:00: 00:00 oral route apt for 00 :00 every day further as needed fills, --AG,RN gabapentin 2019- No 3{capsu Q8H take 3 11/21/2019 [facility] 300 mg 11-21 le} capsule by Pt needs ea lth capsule 00:00: 00:00 oral route apt for 00 :00 3 times further every day fills, --AG,RN Klonopin 1 2020- No 1{table Q8H take 1 11/21/2019 [facility] mg tablet 11-21 t} tablet by Spoke to ealth 00:00: 00:00 oral route Ad[facility] from 00 :[facility], he advised that patient filled medicatio n on and is not due for fill, medicatio n not filled .--AG,RN butalbital- 2019- No 1{capsu Q4H take 1 - 2 11/21/19 20 [facility] acetaminoph 11-21 le} capsule by Pt needs ealth en-caffeine 00:00: 00:00 oral route apt for 50 mg-325 00 :00 every 4 further mg-40 mg hours as fills, capsule needed not --AG,RN to exceed 6 capsules per 24hrs tizanidine 2020- No 1{table Q6H take 1 11/21/2019 [facility] 4 mg tablet 11-21 t} tablet by Pt needs ealth 00:00: 00:00 oral route apt for 00 :00 every 6 - further 8 hours as fills, needed not --AG,RN to exceed 3 doses in 24 hours sertraline 2020- No 1{table Q12H take 1 11/21/2019 [facility] 100 mg 11-21 t} tablet by Pt needs eal th tablet 00:00: 00:00 oral route apt for 00 :00 2 times further every day fills, --AG,RN ProAir HFA 2020- No 1{puff} Q4H inhale 1 11/21/2019 [facility] 90 11-21 puff by Pt needs ealth mcg/actuati 00:00: 00:00 inhalation apt for on aerosol 00 :00 route further inhaler every 4 fills, hours as --AG,RN needed meloxicam 2020- No 2{table QD take 2 11/21/2019 [facility] 7.5 mg 11-21 t} tablet by Pt needs eal th tablet 00:00: 00:00 oral route apt for 00 :00 every day further as needed fills, --AG,RN gabapentin 2020- No 3{capsu Q8H take 3 11/21/2019 [facility] 300 mg 11-21 le} capsule by Pt needs ea lth capsule 00:00: 00:00 oral route apt for 00 :00 3 times further every day fills, --AG,RN Klonopin 1 2020- No 1{table Q8H take 1 11/21/2019 [facility] mg tablet 11-21 t} tablet by Spoke to ealth 00:00: 00:00 oral route Adán from 00 :[facility], he advised that patient filled medicatio n on 0 and is not due for fill, medicatio n not filled .--AG,RN butalbital- 2020- No 1{capsu Q4H take 1 - 2 11/21/19 20 [facility] acetaminoph 11-21 le} capsule by Pt needs ealth en-caffeine 00:00: 00:00 oral route apt for 50 mg-325 00 :00 every 4 further mg-40 mg hours as fills, capsule needed not --AG,RN to exceed 6 capsules per 24hrs tizanidine 2020- No 1{table Q6H take 1 11/21/2019 [facility] 4 mg tablet 11-21 t} tablet by Pt needs ealth 00:00: 00:00 oral route apt for 00 :00 every 6 - further 8 hours as fills, needed not --AG,RN to exceed 3 doses in 24 hours sertraline 2020- No 1{table Q12H take 1 11/21/2019 [facility] 100 mg 11-21 t} tablet by Pt needs eal th tablet 00:00: 00:00 oral route apt for 00 :00 2 times further every day fills, --AG,RN ProAir HFA 2020- No 1{puff} Q4H inhale 1 11/21/2019 [facility] 90 11-21- puff by Pt needs ealth mcg/actuati 00:00: 00:00 inhalation apt for on aerosol 00 :00 route further inhaler every 4 fills, hours as --AG,RN needed meloxicam 2019- No 2{table QD take 2 11/21/2019 [facility] 7.5 mg 11-21 t} tablet by Pt needs eal th tablet 00:00: 00:00 oral route apt for 00 :00 every day further as needed fills, --AG,RN gabapentin 2020- No 3{capsu Q8H take 3 11/21/2019 [facility] 300 mg 11-21 le} capsule by Pt needs ea lth capsule 00:00: 00:00 oral route apt for 00 :00 3 times further every day fills, --AG,RN Klonopin 1 2020-0 2020- No 1{table Q8H take 1 11/21/2019 [facility] mg tablet 11-21- t} tablet by Spoke to ealt 00:00: 00:00 oral route Adán from 00 :[facility], he advised that patient filled medicatio n on 0 and is not due for fill, medicatio n not filled .--AG,RN butalbital- 2020- No 1{capsu Q4H take 1 - 2 11/21/19 20 [facility] acetaminoph 11-21- le} capsule by Pt needs ealth en-caffeine 00:00: 00:00 oral route apt for 50 mg-325 00 :00 every 4 further mg-40 mg hours as fills, capsule needed not --AG,RN to exceed 6 capsules per 24hrs tizanidine 2020- No 1{table Q6H take 1 11/21/2019 [facility] 4 mg tablet 11-21 t} tablet by Pt needs ealth 00:00: 00:00 oral route apt for 00 :00 every 6 - further 8 hours as fills, needed not --AG,RN to exceed 3 doses in 24 hours sertraline 2020- No 1{table Q12H take 1 11/21/2019 [facility] 100 mg 11-21 t} tablet by Pt needs eal th tablet 00:00: 00:00 oral route apt for 00 :00 2 times further every day fills, --AG,RN ProAir HFA 2020- No 1{puff} Q4H inhale 1 11/21/2019 [facility] 90 11-21- puff by Pt needs ealth mcg/actuati 00:00: 00:00 inhalation apt for on aerosol 00 :00 route further inhaler every 4 fills, hours as --AG,RN needed meloxicam 2020- No 2{table QD take 2 11/21/2019 [facility] 7.5 mg 11-21- t} tablet by Pt needs eal th tablet 00:00: 00:00 oral route apt for 00 :00 every day further as needed fills, --AG,RN gabapentin 2020- No 3{capsu Q8H take 3 11/21/2019 [facility] 300 mg 11-21 le} capsule by Pt needs ea lth capsule 00:00: 00:00 oral route apt for 00 :00 3 times further every day fills, --AG,RN Klonopin 1 2020- No 1{table Q8H take 1 11/21/2019 [facility] mg tablet 11-21 t} [facility] route Ad[facility] from 00 :[facility], he advised that patient filled medicatio n on 0 and is not due for fill, medicatio n not filled .--AG,RN butalbital- 2020- No 1{capsu Q4H take 1 - 2 11/21/19 20 [facility] acetaminoph 11-21 le} capsule by Pt needs ealt en-caffeine 00:00: 00:00 oral route apt for 50 mg-325 00 :00 every 4 further mg-40 mg hours as fills, capsule needed not --AG,RN to exceed 6 capsules per 24hrs tizanidine 2020- No 1{table Q6H take 1 11/21/2019 [facility] 4 mg tablet 11-21 t} tablet by Pt needs ealth 00:00: 00:00 oral route apt for 00 :00 every 6 - further 8 hours as fills, needed not --AG,RN to exceed 3 doses in 24 hours sertraline 2020- No 1{table Q12H take 1 11/21/2019 [facility] 100 mg 11-21- t} tablet by Pt needs eal th tablet 00:00: 00:00 oral route apt for 00 :00 2 times further every day fills, --AG,RN ProAir HFA 2020- No 1{puff} Q4H inhale 1 11/21/2019 [facility] 90 11-21- puff by Pt needs ealth mcg/actuati 00:00: 00:00 inhalation apt for on aerosol 00 :00 route further inhaler every 4 fills, hours as --AG,RN needed meloxicam 2020- No 2{table QD take 2 11/21/2019 [facility] 7.5 mg 11-21 t} tablet by Pt needs eal th tablet 00:00: 00:00 oral route apt for 00 :00 every day further as needed fills, --AG,RN gabapentin 2020- No 3{capsu Q8H take 3 11/21/2019 [facility] 300 mg 11-21 le} capsule by Pt needs ea lth capsule 00:00: 00:00 oral route apt for 00 :00 3 times further every day fills, --AG,RN Klonopin 1 2020- No 1{table Q8H take 1 11/21/2019 [facility] mg tablet 11-21 t} tablet by Spoke to ealth 00:00: 00:00 oral route Adán from 00 :[facility], he advised that patient filled medicatio n on and is not due for fill, medicatio n not filled .--AGRN butalbital- 2020- No 1{capsu Q4H take 1 - 2 11/21/19 20 [facility] acetaminoph 11-21 le} capsule by Pt needs ealth en-caffeine 00:00: 00:00 oral route apt for 50 mg-325 00 :00 every 4 further mg-40 mg hours as fills, capsule needed not --AG,RN to exceed 6 capsules per 24hrs tizanidine 2020- No 1{table Q6H take 1 11/21/2019 [facility] 4 mg tablet 11-21 t} tablet by Pt needs ealth 00:00: 00:00 oral route apt for 00 :00 every 6 - further 8 hours as fills, needed not --AG,RN to exceed 3 doses in 24 hours sertraline 2020- No 1{table Q12H take 1 11/21/2019 [facility] 100 mg 11-21- t} tablet by Pt needs eal th tablet 00:00: 00:00 oral route apt for 00 :00 2 times further every day fills, --AG,RN ProAir HFA 2020- No 1{puff} Q4H inhale 1 11/21/2019 [facility] 90 11-21- puff by Pt needs ealth mcg/actuati 00:00: 00:00 inhalation apt for on aerosol 00 :00 route further inhaler every 4 fills, hours as --AG,RN needed meloxicam 2020- No 2{table QD take 2 11/21/2019 [facility] 7.5 mg 11-21 t} tablet by Pt needs eal th tablet 00:00: 00:00 oral route apt for 00 :00 every day further as needed fills, --AG,RN gabapentin 2020- No 3{capsu Q8H take 3 11/21/2019 [facility] 300 mg 11-21 le} capsule by Pt needs ea lth capsule 00:00: 00:00 oral route apt for 00 :00 3 times further every day fills, --AG,RN Klonopin 1 2020- No 1{table Q8H take 1 11/21/2019 [facility] mg tablet 11-21 t} tablet by Spoke to ealth 00:00: 00:00 oral route Adán from 00 :[facility], he advised that patient filled medicatio n on 0 and is not due for fill, medicatio n not filled .--AG,RN butalbital- 2020- No 1{capsu Q4H take 1 - 2 11/21/19 20 [facility] acetaminoph 11-21 le} capsule by Pt needs ealth en-caffeine 00:00: 00:00 oral route apt for 50 mg-325 00 :00 every 4 further mg-40 mg hours as fills, capsule needed not --AG,RN to exceed 6 capsules per 24hrs tizanidine 2020- No 1{table Q6H take 1 11/21/2019 [facility] 4 mg tablet 11-21 t} tablet by Pt needs ealth 00:00: 00:00 oral route apt for 00 :00 every 6 - further 8 hours as fills, needed not --AG,RN to exceed 3 doses in 24 hours sertraline 2020- No 1{table Q12H take 1 11/21/2019 [facility] 100 mg 11-21 t} tablet by Pt needs eal th tablet 00:00: 00:00 oral route apt for 00 :00 2 times further every day fills, --AG,RN ProAir HFA 2020- No 1{puff} Q4H inhale 1 11/21/2019 [facility] 90 11-21 puff by Pt needs ealth mcg/actuati 00:00: 00:00 inhalation apt for on aerosol 00 :00 route further inhaler every 4 fills, hours as --AG,RN needed meloxicam 2019- No 2{table QD take 2 11/21/2019 [facility] 7.5 mg 11-21 t} tablet by Pt needs eal th tablet 00:00: 00:00 oral route apt for 00 :00 every day further as needed fills, --AG,RN gabapentin 2019- No 3{capsu Q8H take 3 11/21/2019 [facility] 300 mg 11-21 le} capsule by Pt needs ea lth capsule 00:00: 00:00 oral route apt for 00 :00 3 times further every day fills, --AG,RN Klonopin 1 2020- No 1{table Q8H take 1 11/21/2019 [facility] mg tablet 11-21 t} tablet by Spoke to ealth 00:00: 00:00 oral route Adán from 00 :[facility], he advised that patient filled medicatio n on 0 and is not due for fill, medicatio n not filled .--AG,RN butalbital- 2020- No 1{capsu Q4H take 1 - 2 11/21/19 20 [facility] acetaminoph 11-21 le} capsule by Pt needs ealth en-caffeine 00:00: 00:00 oral route apt for 50 mg-325 00 :00 every 4 further mg-40 mg hours as fills, capsule needed not --AG,RN to exceed 6 capsules per 24hrs tizanidine 2020- No 1{table Q6H take 1 11/21/2019 [facility] 4 mg tablet 11-21 t} tablet by Pt needs ealth 00:00: 00:00 oral route apt for 00 :00 every 6 - further 8 hours as fills, needed not --AG,RN to exceed 3 doses in 24 hours sertraline 2020- No 1{table Q12H take 1 11/21/2019 [facility] 100 mg 11-21 t} tablet by Pt needs eal th tablet 00:00: 00:00 oral route apt for 00 :00 2 times further every day fills, --AG,RN ProAir HFA 2020- No 1{puff} Q4H inhale 1 11/21/2019 [facility] 90 11-21 puff by Pt needs ealth mcg/actuati 00:00: 00:00 inhalation apt for on aerosol 00 :00 route further inhaler every 4 fills, hours as --AG,RN needed meloxicam 2020- No 2{table QD take 2 11/21/2019 [facility] 7.5 mg 11-21 t} tablet by Pt needs eal th tablet 00:00: 00:00 oral route apt for 00 :00 every day further as needed fills, --AG,RN gabapentin 2020- No 3{capsu Q8H take 3 11/21/2019 [facility] 300 mg 11-21 le} capsule by Pt needs ea lth capsule 00:00: 00:00 oral route apt for 00 :00 3 times further every day fills, --AG,RN Klonopin 1 2020- No 1{table Q8H take 1 11/21/2019 [facility] mg tablet 11-21 t} tablet by Spoke to ealt 00:00: 00:00 oral route Adán from 00 :[facility], he advised that patient filled medicatio n on 0 and is not due for fill, medicatio n not filled .--AG,RN butalbital- 2020- No 1{capsu Q4H take 1 - 2 11/21/19 20 [facility] acetaminoph 11-21 le} capsule by Pt needs ealth en-caffeine 00:00: 00:00 oral route apt for 50 mg-325 00 :00 every 4 further mg-40 mg hours as fills, capsule needed not --AG,RN to exceed 6 capsules per 24hrs tizanidine 2020-0 2020- No 1{table Q6H take 1 11/21/2019 [facility] 4 mg tablet 11-21 t} tablet by Pt needs ealth 00:00: 00:00 oral route apt for 00 :00 every 6 - further 8 hours as fills, needed not --AG,RN to exceed 3 doses in 24 hours sertraline 2020- No 1{table Q12H take 1 11/21/2019 [facility] 100 mg 11-21- t} tablet by Pt needs eal th tablet 00:00: 00:00 oral route apt for 00 :00 2 times further every day fills, --AG,RN ProAir HFA 2020- No 1{puff} Q4H inhale 1 11/21/2019 [facility] 90 11-21 puff by Pt needs ealth mcg/actuati 00:00: 00:00 inhalation apt for on aerosol 00 :00 route further inhaler every 4 fills, hours as --AG,RN needed meloxicam 2019- No 2{table QD take 2 11/21/2019 [facility] 7.5 mg 11-21 t} tablet by Pt needs eal th tablet 00:00: 00:00 oral route apt for 00 :00 every day further as needed fills, --AG,RN gabapentin 2020- No 3{capsu Q8H take 3 11/21/2019 [facility] 300 mg 11-21 le} capsule by Pt needs ea lth capsule 00:00: 00:00 oral route apt for 00 :00 3 times further every day fills, --AG,RN Klonopin 1 2020- No 1{table Q8H take 1 11/21/2019 [facility] mg tablet 11-21 t} [facility] route Ad[facility] from 00 :[facility], he advised that patient filled medicatio n on 0 and is not due for fill, medicatio n not filled .--AG,RN Klonopin 1 2020- No 1{table Q8H take 1 11/21/2019 [facility] mg tablet 11-21 t} tablet by Spoke to ealth 00:00: 00:00 oral route Adán from 00 :[facility], he advised that patient filled medicatio n on 0 and is not due for fill, medicatio n not filled .--AG,RN gabapentin 2020- No 3{capsu Q8H take 3 11/21/2019 [facility] 300 mg 11-21 le} capsule by Pt needs ea lth capsule 00:00: 00:00 oral route apt for 00 :00 3 times further every day fills, --AG,RN meloxicam 2019- No 2{table QD take 2 11/21/2019 [facility] 7.5 mg 11-21 t} tablet by Pt needs eal th tablet 00:00: 00:00 oral route apt for 00 :00 every day further as needed fills, --AG,RN ProAir HFA 2020- No 1{puff} Q4H inhale 1 11/21/2019 [facility] 90 11-21 puff by Pt needs ealth mcg/actuati 00:00: 00:00 inhalation apt for on aerosol 00 :00 route further inhaler every 4 fills, hours as --AG,RN needed sertraline 2019- No 1{table Q12H take 1 11/21/2019 [facility] 100 mg 11-21 t} tablet by Pt needs eal th tablet 00:00: 00:00 oral route apt for 00 :00 2 times further every day fills, --AG,RN tizanidine 2020- No 1{table Q6H take 1 11/21/2019 [facility] 4 mg tablet 11-21 t} tablet by Pt needs ealth 00:00: 00:00 oral route apt for 00 :00 every 6 - further 8 hours as fills, needed not --AG,RN to exceed 3 doses in 24 hours butalbital- 2020- No 1{capsu Q4H take 1 - 2 11/21/19 20 [facility] acetaminoph 11-21 le} capsule by Pt needs ealth en-caffeine 00:00: 00:00 oral route apt for 50 mg-325 00 :00 every 4 further mg-40 mg hours as fills, capsule needed not --AG,RN to exceed 6 capsules per 24hrs butalbital- 2020- No 1{capsu Q4H take 1 - 2 11/21/19 20 [facility] acetaminoph 11-21 le} capsule by Pt needs ealth en-caffeine 00:00: 00:00 oral route apt for 50 mg-325 00 :00 every 4 further mg-40 mg hours as fills, capsule needed not --AG,RN to exceed 6 capsules per 24hrs tizanidine 2020- No 1{table Q6H take 1 11/21/2019 [facility] 4 mg tablet 11-21 t} tablet by Pt needs ealth 00:00: 00:00 oral route apt for 00 :00 every 6 - further 8 hours as fills, needed not --AG,RN to exceed 3 doses in 24 hours sertraline 2020- No 1{table Q12H take 1 11/21/2019 [facility] 100 mg 11-21 t} tablet by Pt needs eal th tablet 00:00: 00:00 oral route apt for 00 :00 2 times further every day fills, --AG,RN ProAir HFA 2020- No 1{puff} Q4H inhale 1 11/21/2019 [facility] 90 11-21 puff by Pt needs ealth mcg/actuati 00:00: 00:00 inhalation apt for on aerosol 00 :00 route further inhaler every 4 fills, hours as --AG,RN needed meloxicam 2020- No 2{table QD take 2 11/21/2019 [facility] 7.5 mg 11-21 t} tablet by Pt needs eal th tablet 00:00: 00:00 oral route apt for 00 :00 every day further as needed fills, --AG,RN gabapentin 2020- No 3{capsu Q8H take 3 11/21/2019 [facility] 300 mg 11-21 le} capsule by Pt needs ea lth capsule 00:00: 00:00 oral route apt for 00 :00 3 times further every day fills, --AG,RN Klonopin 1 2020- No 1{table Q8H take 1 11/21/2019 [facility] mg tablet 2-06 03-06 t} tablet by Spoke to ealt 00:00: 00:00 oral route Adán from 00 :[facility], he advised that patient filled medicatio n on 0 and is not due for fill, medicatio n not filled .--AG,RN butalbital- 2020- No 1{capsu Q4H take 1 - 2 11/21/19 20 [facility] acetaminoph 11-21 le} capsule by Pt needs ealth en-caffeine 00:00: 00:00 oral route apt for 50 mg-325 00 :00 every 4 further mg-40 mg hours as fills, capsule needed not --AG,RN to exceed 6 capsules per 24hrs tizanidine 2020- No 1{table Q6H take 1 11/21/2019 [facility] 4 mg tablet 11-21 t} tablet by Pt needs ealth 00:00: 00:00 oral route apt for 00 :00 every 6 - further 8 hours as fills, needed not --AG,RN to exceed 3 doses in 24 hours sertraline 2020- No 1{table Q12H take 1 11/21/2019 [facility] 100 mg 11-21 t} tablet by Pt needs eal th tablet 00:00: 00:00 oral route apt for 00 :00 2 times further every day fills, --AG,RN ProAir HFA 2020- No 1{puff} Q4H inhale 1 11/21/2019 [facility] 90 11-21- puff by Pt needs ealth mcg/actuati 00:00: 00:00 inhalation apt for on aerosol 00 :00 route further inhaler every 4 fills, hours as --AG,RN needed meloxicam 2020- No 2{table QD take 2 11/21/2019 [facility] 7.5 mg 11-21 t} tablet by Pt needs eal th tablet 00:00: 00:00 oral route apt for 00 :00 every day further as needed fills, --AG,RN gabapentin 2020- No 3{capsu Q8H take 3 11/21/2019 [facility] 300 mg 11-21 le} capsule by Pt needs ea lth capsule 00:00: 00:00 oral route apt for 00 :00 3 times further every day fills, --AG,RN Kelly 1 2020- No 1{table Q8H take 1 11/21/2019 [facility] mg tablet 11-21- t} tablet by Spoke to ealt 00:00: 00:00 oral route Adán from 00 :[facility], he advised that patient filled medicatio n on 0 and is not due for fill, medicatio n not filled .--AG,RN butalbital- 2020- No 1{capsu Q4H take 1 - 2 11/21/19 20 [facility] acetaminoph 11-21 le} capsule by Pt needs ealth en-caffeine 00:00: 00:00 oral route apt for 50 mg-325 00 :00 every 4 further mg-40 mg hours as fills, capsule needed not --AG,RN to exceed 6 capsules per 24hrs tizanidine 2020- No 1{table Q6H take 1 11/21/2019 [facility] 4 mg tablet 11-21 t} tablet by Pt needs ealth 00:00: 00:00 oral route apt for 00 :00 every 6 - further 8 hours as fills, needed not --AG,RN to exceed 3 doses in 24 hours sertraline 2020- No 1{table Q12H take 1 11/21/2019 [facility] 100 mg 11-21- t} tablet by Pt needs eal th tablet 00:00: 00:00 oral route apt for 00 :00 2 times further every day fills, --AG,RN ProAir HFA 2020- No 1{puff} Q4H inhale 1 11/21/2019 [facility] 90 11-21- puff by Pt needs ealth mcg/actuati 00:00: 00:00 inhalation apt for on aerosol 00 :00 route further inhaler every 4 fills, hours as --AG,RN needed meloxicam 2020- No 2{table QD take 2 11/21/2019 [facility] 7.5 mg 11-21- t} tablet by Pt needs eal th tablet 00:00: 00:00 oral route apt for 00 :00 every day further as needed fills, --AG,RN gabapentin 2020- No 3{capsu Q8H take 3 11/21/2019 [facility] 300 mg 11-21 le} capsule by Pt needs ea lth capsule 00:00: 00:00 oral route apt for 00 :00 3 times further every day fills, --AG,RN Klonopin 1 2020- No 1{table Q8H take 1 11/21/2019 [facility] mg tablet 11-21 t} tablet by Spoke to ealth 00:00: 00:00 oral route Adán from 00 :[facility], he advised that patient filled medicatio n on and is not due for fill, medicatio n not filled .--AGRN butalbital- 2020- No 1{capsu Q4H take 1 - 2 11/21/19 20 [facility] acetaminoph 11-21 le} capsule by Pt needs ealth en-caffeine 00:00: 00:00 oral route apt for 50 mg-325 00 :00 every 4 further mg-40 mg hours as fills, capsule needed not --AG,RN to exceed 6 capsules per 24hrs tizanidine 2020- No 1{table Q6H take 1 11/21/2019 [facility] 4 mg tablet 11-21 t} tablet by Pt needs ealth 00:00: 00:00 oral route apt for 00 :00 every 6 - further 8 hours as fills, needed not --AG,RN to exceed 3 doses in 24 hours sertraline 2020- No 1{table Q12H take 1 11/21/2019 [facility] 100 mg 11-21 t} tablet by Pt needs eal th tablet 00:00: 00:00 oral route apt for 00 :00 2 times further every day fills, --AG,RN ProAir HFA 2020- No 1{puff} Q4H inhale 1 11/21/2019 [facility] 90 11-21- puff by Pt needs ealth mcg/actuati 00:00: 00:00 inhalation apt for on aerosol 00 :00 route further inhaler every 4 fills, hours as --AG,RN needed meloxicam 2020- No 2{table QD take 2 11/21/2019 [facility] 7.5 mg 11-21 t} tablet by Pt needs eal th tablet 00:00: 00:00 oral route apt for 00 :00 every day further as needed fills, --AG,RN gabapentin 2020- No 3{capsu Q8H take 3 11/21/2019 [facility] 300 mg 11-21 le} capsule by Pt needs ea lth capsule 00:00: 00:00 oral route apt for 00 :00 3 times further every day fills, --AG,RN Klonopin 1 2019- No 1{table Q8H take 1 11/21/2019 [facility] mg tablet 11-21 t} tablet by Spoke to ealt 00:00: 00:00 oral route Ad[facility] from 00 :[facility], he advised that patient filled medicatio n on 0 and is not due for fill, medicatio n not filled .--AG,RN butalbital- 2020- No 1{capsu Q4H take 1 - 2 11/21/19 20 [facility] acetaminoph 11-21 le} capsule by Pt needs ealth en-caffeine 00:00: 00:00 oral route apt for 50 mg-325 00 :00 every 4 further mg-40 mg hours as fills, capsule needed not --AG,RN to exceed 6 capsules per 24hrs tizanidine 2020- No 1{table Q6H take 1 11/21/2019 [facility] 4 mg tablet 11-21 t} tablet by Pt needs ealth 00:00: 00:00 oral route apt for 00 :00 every 6 - further 8 hours as fills, needed not --AG,RN to exceed 3 doses in 24 hours sertraline 2020- No 1{table Q12H take 1 11/21/2019 [facility] 100 mg 11-21 t} tablet by Pt needs eal th tablet 00:00: 00:00 oral route apt for 00 :00 2 times further every day fills, --AG,RN ProAir HFA 2020- No 1{puff} Q4H inhale 1 11/21/2019 [facility] 90 11-21 puff by Pt needs ealth mcg/actuati 00:00: 00:00 inhalation apt for on aerosol 00 :00 route further inhaler every 4 fills, hours as --AG,RN needed meloxicam 2020- No 2{table QD take 2 11/21/2019 [facility] 7.5 mg 11-21 t} tablet by Pt needs eal th tablet 00:00: 00:00 oral route apt for 00 :00 every day further as needed fills, --AG,RN gabapentin 2020- No 3{capsu Q8H take 3 11/21/2019 [facility] 300 mg 11-21 le} capsule by Pt needs ea l[facility] capsule 00:00: 00:00 oral route apt for 00 :00 3 times further every day fills, --LEONIERN Klonopin 1 2020- No 1{table Q8H take 1 11/21/2019 [facility] mg tablet 11-21 t} tablet by [facility] to [facility] 00:00: 00:00 oral route Ad[facility] from 00 :[facility], he advised that patient filled medicatio n on and is not due for fill, medicatio n not filled .--AGRN butalbital- 2020- No 1{capsu Q4H take 1 - 2 11/21/19 20 [facility] acetaminoph 11-21 le} capsule by Pt needs ealth en-caffeine 00:00: 00:00 oral route apt for 50 mg-325 00 :00 every 4 further mg-40 mg hours as fills, capsule needed not --AG,RN to exceed 6 capsules per 24hrs tizanidine 2020- No 1{table Q6H take 1 11/21/2019 [facility] 4 mg tablet 11-21 t} tablet by Pt needs ealth 00:00: 00:00 oral route apt for 00 :00 every 6 - further 8 hours as fills, needed not --AG,RN to exceed 3 doses in 24 hours sertraline 2020-0 2020- No 1{table Q12H take 1 11/21/2019 [facility] 100 mg 11-21 t} tablet by Pt needs eal th tablet 00:00: 00:00 oral route apt for 00 :00 2 times further every day fills, --AG,RN ProAir HFA 2020- No 1{puff} Q4H inhale 1 11/21/2019 [facility] 90 11-21- puff by Pt needs ealth mcg/actuati 00:00: 00:00 inhalation apt for on aerosol 00 :00 route further inhaler every 4 fills, hours as --AG,RN needed meloxicam 2019- No 2{table QD take 2 11/21/2019 [facility] 7.5 mg 11-21 t} tablet by Pt needs eal th tablet 00:00: 00:00 oral route apt for 00 :00 every day further as needed fills, --AG,RN gabapentin 2020- No 3{capsu Q8H take 3 11/21/2019 [facility] 300 mg 11-21 le} capsule by Pt needs ea l[facility] capsule 00:00: 00:00 oral route apt for 00 :00 3 times further every day fills, --AG,RN Klonopin 1 2020- No 1{table Q8H take 1 11/21/2019 [facility] mg tablet 11-21 t} tablet by Spoke to ealth 00:00: 00:00 oral route Ad[facility] from 00 :[facility], he advised that patient filled medicatio n on 0 and is not due for fill, medicatio n not filled .--AG,RN butalbital- 2020- No 1{capsu Q4H take 1 - 2 11/21/19 20 [facility] acetaminoph 11-21 le} capsule by Pt needs ealth en-caffeine 00:00: 00:00 oral route apt for 50 mg-325 00 :00 every 4 further mg-40 mg hours as fills, capsule needed not --AG,RN to exceed 6 capsules per 24hrs tizanidine 2020- No 1{table Q6H take 1 11/21/2019 [facility] 4 mg tablet 11-21 t} tablet by Pt needs ealth 00:00: 00:00 oral route apt for 00 :00 every 6 - further 8 hours as fills, needed not --AG,RN to exceed 3 doses in 24 hours sertraline 2020- No 1{table Q12H take 1 11/21/2019 [facility] 100 mg 11-21 t} tablet by Pt needs eal th tablet 00:00: 00:00 oral route apt for 00 :00 2 times further every day fills, --AG,RN ProAir HFA 2020- No 1{puff} Q4H inhale 1 11/21/2019 [facility] 90 11-21 puff by Pt needs ealth mcg/actuati 00:00: 00:00 inhalation apt for on aerosol 00 :00 route further inhaler every 4 fills, hours as --AG,RN needed meloxicam 2019- No 2{table QD take 2 11/21/2019 [facility] 7.5 mg 11-21 t} tablet by Pt needs eal th tablet 00:00: 00:00 oral route apt for 00 :00 every day further as needed fills, --AG,RN gabapentin 2019- No 3{capsu Q8H take 3 11/21/2019 [facility] 300 mg 11-21 le} capsule by Pt needs ea l[facility] capsule 00:00: 00:00 oral route apt for 00 :00 3 times further every day fills, --AG,RN Klonopin 1 2020- No 1{table Q8H take 1 11/21/2019 [facility] mg tablet 11-21 t} tablet by Spoke to ealth 00:00: 00:00 oral route Ad[facility] from 00 :[facility], he advised that patient filled medicatio n on 0 and is not due for fill, medicatio n not filled .--AG,RN butalbital- 2020- No 1{capsu Q4H take 1 - 2 11/21/19 20 [facility] acetaminoph 11-21 le} capsule by Pt needs ealth en-caffeine 00:00: 00:00 oral route apt for 50 mg-325 00 :00 every 4 further mg-40 mg hours as fills, capsule needed not --AG,RN to exceed 6 capsules per 24hrs tizanidine 2020- No 1{table Q6H take 1 11/21/2019 [facility] 4 mg tablet 11-21 t} tablet by Pt needs ealth 00:00: 00:00 oral route apt for 00 :00 every 6 - further 8 hours as fills, needed not --AG,RN to exceed 3 doses in 24 hours sertraline 2020- No 1{table Q12H take 1 11/21/2019 [facility] 100 mg 11-21 t} tablet by Pt needs eal th tablet 00:00: 00:00 oral route apt for 00 :00 2 times further every day fills, --AG,RN ProAir HFA 2020- No 1{puff} Q4H inhale 1 11/21/2019 [facility] 90 11-21 puff by Pt needs ealth mcg/actuati 00:00: 00:00 inhalation apt for on aerosol 00 :00 route further inhaler every 4 fills, hours as --AG,RN needed meloxicam 2020- No 2{table QD take 2 11/21/2019 [facility] 7.5 mg 11-21 t} tablet by Pt needs eal th tablet 00:00: 00:00 oral route apt for 00 :00 every day further as needed fills, --AG,RN gabapentin 2020- No 3{capsu Q8H take 3 11/21/2019 [facility] 300 mg 11-21 le} capsule by Pt needs ea [facility] capsule 00:00: 00:00 oral route apt for 00 :00 3 times further every day fills, --AG,RN Klonopin 1 2020- No 1{table Q8H take 1 11/21/2019 [facility] mg tablet 11-21 t} tablet by Spoke to ealth 00:00: 00:00 oral route Ad[facility] from 00 :[facility], he advised that patient filled medicatio n on 0 and is not due for fill, medicatio n not filled .--AG,RN gradybital- 2020- No 1{capsu Q4H take 1 - 2 11/21/19 20 [facility] acetaminoph 11-21 le} capsule by Pt needs ealth en-caffeine 00:00: 00:00 oral route apt for 50 mg-325 00 :00 every 4 further mg-40 mg hours as fills, capsule needed not --AG,RN to exceed 6 capsules per 24hrs tizanidine 2020- No 1{table Q6H take 1 11/21/2019 [facility] 4 mg tablet 11-21 t} tablet by Pt needs ealth 00:00: 00:00 oral route apt for 00 :00 every 6 - further 8 hours as fills, needed not --AG,RN to exceed 3 doses in 24 hours sertraline 2020- No 1{table Q12H take 1 11/21/2019 [facility] 100 mg 11-21 t} tablet by Pt needs eal th tablet 00:00: 00:00 oral route apt for 00 :00 2 times further every day fills, --AG,RN ProAir HFA 2020- No 1{puff} Q4H inhale 1 11/21/2019 [facility] 90 11-21 puff by Pt needs ealth mcg/actuati 00:00: 00:00 inhalation apt for on aerosol 00 :00 route further inhaler every 4 fills, hours as --AG,RN needed meloxicam 2020- No 2{table QD take 2 11/21/2019 [facility] 7.5 mg 11-21 t} tablet by Pt needs eal th tablet 00:00: 00:00 oral route apt for 00 :00 every day further as needed fills, --AG,RN gabapentin 2020- No 3{capsu Q8H take 3 11/21/2019 [facility] 300 mg 11-21 le} capsule by Pt needs ea [facility] capsule 00:00: 00:00 oral route apt for 00 :00 3 times further every day fills, --AG,RN Klonopin 1 2020- No 1{table Q8H take 1 11/21/2019 [facility] mg tablet 11-21 t} tablet by Spoke to ealth 00:00: 00:00 oral route Ad[facility] from 00 :[facility], he advised that patient filled medicatio n on 0 and is not due for fill, medicatio n not filled .--AG,RN butalbital- 2020- No 1{capsu Q4H take 1 - 2 11/21/19 20 [facility] acetaminoph 11-21 le} capsule by Pt needs ealth en-caffeine 00:00: 00:00 oral route apt for 50 mg-325 00 :00 every 4 further mg-40 mg hours as fills, capsule needed not --AG,RN to exceed 6 capsules per 24hrs tizanidine 2019- No 1{table Q6H take 1 11/21/2019 [facility] 4 mg tablet 11-21 t} tablet by Pt needs ealth 00:00: 00:00 oral route apt for 00 :00 every 6 - further 8 hours as fills, needed not --AG,RN to exceed 3 doses in 24 hours sertraline 2020- No 1{table Q12H take 1 11/21/2019 [facility] 100 mg 11-21 t} tablet by Pt needs eal th tablet 00:00: 00:00 oral route apt for 00 :00 2 times further every day fills, --AG,RN ProAir HFA 2020- No 1{puff} Q4H inhale 1 11/21/2019 [facility] 90 11-21- puff by Pt needs ealth mcg/actuati 00:00: 00:00 inhalation apt for on aerosol 00 :00 route further inhaler every 4 fills, hours as --AG,RN needed meloxicam 2020- No 2{table QD take 2 11/21/2019 [facility] 7.5 mg 11-21- t} tablet by Pt needs eal th tablet 00:00: 00:00 oral route apt for 00 :00 every day further as needed fills, --AG,RN gabapentin 2020- No 3{capsu Q8H take 3 11/21/2019 [facility] 300 mg 11-21 le} capsule by Pt needs ea l[facility] capsule 00:00: 00:00 oral route apt for 00 :00 3 times further every day fills, --AG,RN Klonopin 1 2020- No 1{table Q8H take 1 11/21/2019 [facility] mg tablet 11-21- t} tablet by Spoke to ealth 00:00: 00:00 oral route Ad[facility] from 00 :[facility], he advised that patient filled medicatio n on 0 and is not due for fill, medicatio n not filled .--AG,RN butalbital- 2020- No 1{capsu Q4H take 1 - 2 11/21/19 20 [facility] acetaminoph 11-21- le} capsule by Pt needs ealth en-caffeine 00:00: 00:00 oral route apt for 50 mg-325 00 :00 every 4 further mg-40 mg hours as fills, capsule needed not --AG,RN to exceed 6 capsules per 24hrs tizanidine 2019- No 1{table Q6H take 1 11/21/2019 [facility] 4 mg tablet 11-21 t} tablet by Pt needs ealth 00:00: 00:00 oral route apt for 00 :00 every 6 - further 8 hours as fills, needed not --AG,RN to exceed 3 doses in 24 hours sertraline 2020- No 1{table Q12H take 1 11/21/2019 [facility] 100 mg 11-21- t} tablet by Pt needs eal th tablet 00:00: 00:00 oral route apt for 00 :00 2 times further every day fills, --AG,RN ProAir HFA 2020- No 1{puff} Q4H inhale 1 11/21/2019 [facility] 90 2-03 18-06 puff by Pt needs ealth mcg/actuati 00:00: 00:00 inhalation apt for on aerosol 00 :00 route further inhaler every 4 fills, hours as --AG,RN needed meloxicam 2020- No 2{table QD take 2 11/21/2019 [facility] 7.5 mg 11-21- t} tablet by Pt needs eal th tablet 00:00: 00:00 oral route apt for 00 :00 every day further as needed fills, --AG,RN gabapentin 2020- No 3{capsu Q8H take 3 11/21/2019 [facility] 300 mg 11-21 le} capsule by Pt needs ea lth capsule 00:00: 00:00 oral route apt for 00 :00 3 times further every day fills, --AG,RN Klonopin 1 2020- No 1{table Q8H take 1 11/21/2019 [facility] mg tablet 11-21 t} tablet by Spoke to ealth 00:00: 00:00 oral route Ad[facility] from 00 :[facility], he advised that patient filled medicatio n on and is not due for fill, medicatio n not filled .--AG,RN butalbital- 2020- No 1{capsu Q4H take 1 - 2 11/21/19 20 [facility] acetaminoph 11-21 le} capsule by Pt needs ealth en-caffeine 00:00: 00:00 oral route apt for 50 mg-325 00 :00 every 4 further mg-40 mg hours as fills, capsule needed not --AG,RN to exceed 6 capsules per 24hrs tizanidine 2020- No 1{table Q6H take 1 11/21/2019 [facility] 4 mg tablet 11-21 t} tablet by Pt needs ealth 00:00: 00:00 oral route apt for 00 :00 every 6 - further 8 hours as fills, needed not --AG,RN to exceed 3 doses in 24 hours sertraline 2020- No 1{table Q12H take 1 11/21/2019 [facility] 100 mg 11-21- t} tablet by Pt needs eal th tablet 00:00: 00:00 oral route apt for 00 :00 2 times further every day fills, --AG,RN ProAir HFA 2020- No 1{puff} Q4H inhale 1 11/21/2019 [facility] 90 11-21-06 puff by Pt needs ealth mcg/actuati 00:00: 00:00 inhalation apt for on aerosol 00 :00 route further inhaler every 4 fills, hours as --AG,RN needed meloxicam 2020- No 2{table QD take 2 11/21/2019 [facility] 7.5 mg 11-21 t} tablet by Pt needs eal th tablet 00:00: 00:00 oral route apt for 00 :00 every day further as needed fills, --AG,RN gabapentin 2020- No 3{capsu Q8H take 3 11/21/2019 [facility] 300 mg 11-21 le} capsule by Pt needs ea lth capsule 00:00: 00:00 oral route apt for 00 :00 3 times further every day fills, --AG,RN Klonopin 1 2020- No 1{table Q8H take 1 11/21/2019 [facility] mg tablet 11-21 t} tablet by Spoke to ealth 00:00: 00:00 oral route Adán from 00 :[facility], he advised that patient filled medicatio n on 0 and is not due for fill, medicatio n not filled .--AG,RN butalbital- 2020- No 1{capsu Q4H take 1 - 2 11/21/19 20 [facility] acetaminoph 11-21 le} capsule by Pt needs ealth en-caffeine 00:00: 00:00 oral route apt for 50 mg-325 00 :00 every 4 further mg-40 mg hours as fills, capsule needed not --AG,RN to exceed 6 capsules per 24hrs tizanidine 2020- No 1{table Q6H take 1 11/21/2019 [facility] 4 mg tablet 11-21 t} tablet by Pt needs ealth 00:00: 00:00 oral route apt for 00 :00 every 6 - further 8 hours as fills, needed not --AG,RN to exceed 3 doses in 24 hours sertraline 2020- No 1{table Q12H take 1 11/21/2019 [facility] 100 mg 11-21 t} tablet by Pt needs eal th tablet 00:00: 00:00 oral route apt for 00 :00 2 times further every day fills, --AG,RN ProAir HFA 2020- No 1{puff} Q4H inhale 1 11/21/2019 [facility] 90 2- puff by Pt needs ealth mcg/actuati 00:00: 00:00 inhalation apt for on aerosol 00 :00 route further inhaler every 4 fills, hours as --AG,RN needed meloxicam 2020- No 2{table QD take 2 11/21/2019 [facility] 7.5 mg 11-21 t} tablet by Pt needs eal th tablet 00:00: 00:00 oral route apt for 00 :00 every day further as needed fills, --AG,RN gabapentin 2020- No 3{capsu Q8H take 3 11/21/2019 [facility] 300 mg 11-21 le} capsule by Pt needs ea lth capsule 00:00: 00:00 oral route apt for 00 :00 3 times further every day fills, --AG,RN Klonopin 1 2020- No 1{table Q8H take 1 11/21/2019 [facility] mg tablet 11-21 t} tablet by Spoke to ealth 00:00: 00:00 oral route Ad[facility] from 00 :[facility], he advised that patient filled medicatio n on and is not due for fill, medicatio n not filled .--AG,RN butalbital- 2020- No 1{capsu Q4H take 1 - 2 11/21/19 20 [facility] acetaminoph 11-21 le} capsule by Pt needs ealth en-caffeine 00:00: 00:00 oral route apt for 50 mg-325 00 :00 every 4 further mg-40 mg hours as fills, capsule needed not --AG,RN to exceed 6 capsules per 24hrs tizanidine 2020- No 1{table Q6H take 1 11/21/2019 [facility] 4 mg tablet 11-21 t} tablet by Pt needs ealth 00:00: 00:00 oral route apt for 00 :00 every 6 - further 8 hours as fills, needed not --AG,RN to exceed 3 doses in 24 hours sertraline 2020- No 1{table Q12H take 1 11/21/2019 [facility] 100 mg -03 18- t} tablet by Pt needs eal th tablet 00:00: 00:00 oral route apt for 00 :00 2 times further every day fills, --AG,RN ProAir HFA 2020- No 1{puff} Q4H inhale 1 11/21/2019 [facility] 90 -03 18- puff by Pt needs ealth mcg/actuati 00:00: 00:00 inhalation apt for on aerosol 00 :00 route further inhaler every 4 fills, hours as --AG,RN needed meloxicam 2020- No 2{table QD take 2 11/21/2019 [facility] 7.5 mg 11-21 t} tablet by Pt needs eal th tablet 00:00: 00:00 oral route apt for 00 :00 every day further as needed fills, --AG,RN gabapentin 2020- No 3{capsu Q8H take 3 11/21/2019 [facility] 300 mg 11-21 le} capsule by Pt needs ea lth capsule 00:00: 00:00 oral route apt for 00 :00 3 times further every day fills, --AG,RN Klonopin 1 2020- No 1{table Q8H take 1 11/21/2019 [facility] mg tablet 11-21 t} tablet by Spoke to ealth 00:00: 00:00 oral route Ad[facility] from 00 :[facility], he advised that patient filled medicatio n on 0 and is not due for fill, medicatio n not filled .--AG,RN butalbital- 2020- No 1{capsu Q4H take 1 - 2 11/21/19 20 [facility] acetaminoph 11-21- le} capsule by Pt needs ealth en-caffeine 00:00: 00:00 oral route apt for 50 mg-325 00 :00 every 4 further mg-40 mg hours as fills, capsule needed not --AG,RN to exceed 6 capsules per 24hrs tizanidine 2020- No 1{table Q6H take 1 11/21/2019 [facility] 4 mg tablet 2-12-19 t} tablet by Pt needs ealth 00:00: 00:00 oral route apt for 00 :00 every 6 - further 8 hours as fills, needed not --AG,RN to exceed 3 doses in 24 hours sertraline 2019- No 1{table Q12H take 1 11/21/2019 [facility] 100 mg 11-21- t} tablet by Pt needs eal th tablet 00:00: 00:00 oral route apt for 00 :00 2 times further every day fills, --AG,RN ProAir HFA 2020- No 1{puff} Q4H inhale 1 11/21/2019 [facility] 90 11-21 puff by Pt needs ealth mcg/actuati 00:00: 00:00 inhalation apt for on aerosol 00 :00 route further inhaler every 4 fills, hours as --AG,RN needed meloxicam 2020- No 2{table QD take 2 11/21/2019 [facility] 7.5 mg 11-21 t} tablet by Pt needs eal th tablet 00:00: 00:00 oral route apt for 00 :00 every day further as needed fills, --AG,RN gabapentin 2020- No 3{capsu Q8H take 3 11/21/2019 [facility] 300 mg 11-21 le} capsule by Pt needs ea lth capsule 00:00: 00:00 oral route apt for 00 :00 3 times further every day fills, --AG,RN Klonopin 1 2020- No 1{table Q8H take 1 11/21/2019 [facility] mg tablet 11-21 t} tablet by Spoke to ealth 00:00: 00:00 oral route Adán from 00 :[facility], he advised that patient filled medicatio n on 0 and is not due for fill, medicatio n not filled .--AG,RN butalbital- 2020- No 1{capsu Q4H take 1 - 2 11/21/19 20 [facility] acetaminoph 11-21- le} capsule by Pt needs ealth en-caffeine 00:00: 00:00 oral route apt for 50 mg-325 00 :00 every 4 further mg-40 mg hours as fills, capsule needed not --AG,RN to exceed 6 capsules per 24hrs tizanidine 2020- No 1{table Q6H take 1 11/21/2019 [facility] 4 mg tablet 11-21 t} tablet by Pt needs ealth 00:00: 00:00 oral route apt for 00 :00 every 6 - further 8 hours as fills, needed not --AG,RN to exceed 3 doses in 24 hours sertraline 2019- No 1{table Q12H take 1 11/21/2019 [facility] 100 mg 11-21 t} tablet by Pt needs eal th tablet 00:00: 00:00 oral route apt for 00 :00 2 times further every day fills, --AG,RN ProAir HFA 2020- No 1{puff} Q4H inhale 1 11/21/2019 [facility] 90 11-21 puff by Pt needs ealth mcg/actuati 00:00: 00:00 inhalation apt for on aerosol 00 :00 route further inhaler every 4 fills, hours as --AG,RN needed meloxicam 2019- No 2{table QD take 2 11/21/2019 [facility] 7.5 mg 11-21 t} tablet by Pt needs eal th tablet 00:00: 00:00 oral route apt for 00 :00 every day further as needed fills, --AG,RN gabapentin 2020- No 3{capsu Q8H take 3 11/21/2019 [facility] 300 mg 11-21 le} capsule by Pt needs ea lth capsule 00:00: 00:00 oral route apt for 00 :00 3 times further every day fills, --AG,RN Klonopin 1 2020- No 1{table Q8H take 1 11/21/2019 [facility] mg tablet 11-21 t} tablet by Spoke to ealth 00:00: 00:00 oral route Ad[facility] from 00 :[facility], he advised that patient filled medicatio n on 0 and is not due for fill, medicatio n not filled .--AG,RN butalbital- 2020-0 2020- No 1{capsu Q4H take 1 - 2 11/21/19 20 [facility] acetaminoph 11-21 le} capsule by Pt needs ealth en-caffeine 00:00: 00:00 oral route apt for 50 mg-325 00 :00 every 4 further mg-40 mg hours as fills, capsule needed not --AG,RN to exceed 6 capsules per 24hrs tizanidine 2020- No 1{table Q6H take 1 11/21/2019 [facility] 4 mg tablet 11-21 t} tablet by Pt needs ealth 00:00: 00:00 oral route apt for 00 :00 every 6 - further 8 hours as fills, needed not --AG,RN to exceed 3 doses in 24 hours sertraline 2020- No 1{table Q12H take 1 11/21/2019 [facility] 100 mg 11-21 t} tablet by Pt needs eal th tablet 00:00: 00:00 oral route apt for 00 :00 2 times further every day fills, --AG,RN ProAir HFA 2020- No 1{puff} Q4H inhale 1 11/21/2019 [facility] 90 11-21 puff by Pt needs ealth mcg/actuati 00:00: 00:00 inhalation apt for on aerosol 00 :00 route further inhaler every 4 fills, hours as --AG,RN needed meloxicam 2020- No 2{table QD take 2 11/21/2019 [facility] 7.5 mg 11-21 t} tablet by Pt needs eal th tablet 00:00: 00:00 oral route apt for 00 :00 every day further as needed fills, --AG,RN gabapentin 2020- No 3{capsu Q8H take 3 11/21/2019 [facility] 300 mg 11-21 le} capsule by Pt needs ea lth capsule 00:00: 00:00 oral route apt for 00 :00 3 times further every day fills, --AG,RN Klonopin 1 2020- No 1{table Q8H take 1 11/21/2019 [facility] mg tablet 11-21 t} tablet by Spoke to ealth 00:00: 00:00 oral route Adán from 00 :[facility], he advised that patient filled medicatio n on 0 and is not due for fill, medicatio n not filled .--AG,RN butalbital- 2020- No 1{capsu Q4H take 1 - 2 11/21/19 20 [facility] acetaminoph 11-21- le} capsule by Pt needs ealth en-caffeine 00:00: 00:00 oral route apt for 50 mg-325 00 :00 every 4 further mg-40 mg hours as fills, capsule needed not --AG,RN to exceed 6 capsules per 24hrs tizanidine 2019- No 1{table Q6H take 1 11/21/2019 [facility] 4 mg tablet 11-21 t} tablet by Pt needs ealth 00:00: 00:00 oral route apt for 00 :00 every 6 - further 8 hours as fills, needed not --AG,RN to exceed 3 doses in 24 hours sertraline 2019- No 1{table Q12H take 1 11/21/2019 [facility] 100 mg 11-21- t} tablet by Pt needs eal th tablet 00:00: 00:00 oral route apt for 00 :00 2 times further every day fills, --AG,RN ProAir HFA 2020- No 1{puff} Q4H inhale 1 11/21/2019 [facility] 90 11-21-06 puff by Pt needs ealth mcg/actuati 00:00: 00:00 inhalation apt for on aerosol 00 :00 route further inhaler every 4 fills, hours as --AG,RN needed meloxicam 2019- No 2{table QD take 2 11/21/2019 [facility] 7.5 mg 11-21- t} tablet by Pt needs eal th tablet 00:00: 00:00 oral route apt for 00 :00 every day further as needed fills, --AG,RN gabapentin 2020- No 3{capsu Q8H take 3 11/21/2019 [facility] 300 mg 11-21- le} capsule by Pt needs ea lth capsule 00:00: 00:00 oral route apt for 00 :00 3 times further every day fills, --AG,RN Kelly 1 2019- No 1{table Q8H take 1 11/21/2019 [facility] mg tablet 11-21 03-06 t} tablet by Spoke to ealth 00:00: 00:00 oral route Adán from 00 :[facility], he advised that patient filled medicatio n on and is not due for fill, medicatio n not filled .--LEONIERN ferrous 2018-10 No 1{table Q1D take 1 [facility] sulfate 325 0-18 02-06 t} tablet by ea lth mg (65 mg 00:00: 00:00 oral route iron) 00 :00 every day tablet ferrous 2018-10 1{table Q1D take 1 [facility] sulfate 325 0-18 02-06 t} tablet by ea lth mg (65 mg 00:00: 00:00 oral route iron) 00 :00 every day tablet ferrous 2018-10 1{table Q1D take 1 [facility] sulfate 325 0-18 02-06 t} tablet by ea lth mg (65 mg 00:00: 00:00 oral route iron) 00 :00 every day tablet ferrous 2018-10 No 1{table Q1D take 1 [facility] sulfate 325 0-18 02-06 t} tablet by ea lth mg (65 mg 00:00: 00:00 oral route iron) 00 :00 every day tablet ferrous 2018-10 No 1{table Q1D take 1 [facility] sulfate 325 0-18 02-06 t} tablet by ea lth mg (65 mg 00:00: 00:00 oral route iron) 00 :00 every day tablet ferrous 2018-10 1{table Q1D take 1 [facility] sulfate 325 0-18 02-06 t} tablet by ea lth mg (65 mg 00:00: 00:00 oral route iron) 00 :00 every day tablet ferrous 2018-10 No 1{table Q1D take 1 [facility] sulfate 325 0-18 02-06 t} tablet by ea lth mg (65 mg 00:00: 00:00 oral route iron) 00 :00 every day tablet ferrous 2018-10 1{table Q1D take 1 [facility] sulfate 325 0-18 02-06 t} tablet by ea lth mg (65 mg 00:00: 00:00 oral route iron) 00 :00 every day tablet ferrous 2018-10 1{table Q1D take 1 [facility] sulfate 325 0-18 02-06 t} tablet by ea lth mg (65 mg 00:00: 00:00 oral route iron) 00 :00 every day tablet ferrous 2018-10 1{table Q1D take 1 [facility] sulfate 325 0-18 02-06 t} tablet by ea lth mg (65 mg 00:00: 00:00 oral route iron) 00 :00 every day tablet ferrous 2018-10 1{table Q1D take 1 [facility] sulfate 325 0-18 02-06 t} tablet by ea lth mg (65 mg 00:00: 00:00 oral route iron) 00 :00 every day tablet ferrous 2018-10 1{table Q1D take 1 [facility] sulfate 325 0-18 02-06 t} tablet by ea lth mg (65 mg 00:00: 00:00 oral route iron) 00 :00 every day tablet ferrous 2018-10 1{table Q1D take 1 [facility] sulfate 325 0-18 02-06 t} tablet by [facility] (65 mg 00:00: 00:00 oral route iron) 00 :00 every day tablet ferrous 2018-10 1{table Q1D take 1 [facility] ssH sulfate 325 0-18 02-06 t} tablet by [facility] (65 mg 00:00: 00:00 oral route iron) 00 :00 every day tablet ferrous 2018-10{table Q1D take 1 [facility] ssH sulfate 325 0-18 02-06 t} tablet by [facility] (65 mg 00:00: 00:00 oral route iron) 00 :00 every day tablet ferrous 2018-10 1{table Q1D take 1 [facility] ssH sulfate 325 0-18 02-06 t} tablet by [facility] (65 mg 00:00: 00:00 oral route iron) 00 :00 every day tablet ferrous 2018-10 1{table Q1D take 1 [facility] ssH sulfate 325 0-18 02-06 t} tablet by [facility] (65 mg 00:00: 00:00 oral route iron) 00 :00 every day tablet ferrous 2018-10 No 1{table Q1D take 1 [facility] ssH sulfate 325 0-18 02-06 t} tablet by [facility] (65 mg 00:00: 00:00 oral route iron) 00 :00 every day tablet ferrous 2018-10 No 1{table Q1D take 1 [facility] ssH sulfate 325 0-18 02-06 t} tablet by [facility] (65 mg 00:00: 00:00 oral route iron) 00 :00 every day tablet ferrous 2018-10 1{table Q1D take 1 [facility] ssH sulfate 325 0-18 02-06 t} tablet by [facility] (65 mg 00:00: 00:00 oral route iron) 00 :00 every day tablet ferrous 2018-10 1{table Q1D take 1 [facility] ssH sulfate 325 0-18 02-06 t} tablet by [facility] (65 mg 00:00: 00:00 oral route iron) 00 :00 every day tablet ferrous 2018-10 No 1{table Q1D take 1 [facility] ssH sulfate 325 0-18 02-06 t} tablet by [facility] (65 mg 00:00: 00:00 oral route iron) 00 :00 every day tablet ferrous 2018-10 No 1{table Q1D take 1 [facility] ssH sulfate 325 0-18 02-06 t} tablet by [facility] (65 mg 00:00: 00:00 oral route iron) 00 :00 every day tablet ferrous 2018-10 No 1{table Q1D take 1 [facility] ssH sulfate 325 0-18 02-06 t} tablet by [facility] (65 mg 00:00: 00:00 oral route iron) 00 :00 every day tablet ferrous 2018-10 No 1{table Q1D take 1 [facility] ssH sulfate 325 0-18 02-06 t} tablet by [facility] (65 mg 00:00: 00:00 oral route iron) 00 :00 every day tablet ferrous 2018-10 No 1{table Q1D take 1 [facility] ssH sulfate 325 0-18 02-06 t} tablet by [facility] (65 mg 00:00: 00:00 oral route iron) 00 :00 every day tablet ferrous 2018-10 No 1{table Q1D take 1 [facility] ssH sulfate 325 0-18 02-06 t} tablet by [facility] (65 mg 00:00: 00:00 oral route iron) 00 :00 every day tablet ferrous 2018-10 No 1{table Q1D take 1 [facility] ssH sulfate 325 0-18 02-06 t} tablet by [facility] (65 mg 00:00: 00:00 oral route iron) 00 :00 every day tablet ferrous 2018-10 1{table Q1D take 1 [facility] ssH sulfate 325 0-18 02-06 t} tablet by [facility] (65 mg 00:00: 00:00 oral route iron) 00 :00 every day tablet ferrous 2018-10 No 1{table Q1D take 1 [facility] ss[facility] sulfate 325 0-18 02-06 t} tablet by [facility] (65 mg 00:00: 00:00 oral route iron) 00 :00 every day tablet ferrous 2018-10 1{table Q1D take 1 [facility] ssH sulfate 325 0-18 02-06 t} tablet by [facility] mg (65 mg 00:00: 00:00 oral route iron) 00 :00 every day tablet ferrous 2018-10 1{table Q1D take 1 [facility] ss[facility] sulfate 325 0-18 02-06 t} tablet by [facility] (65 mg 00:00: 00:00 oral route iron) 00 :00 every day tablet ferrous 2018-10 No 1{table Q1D take 1 [facility] ssH sulfate 325 0-18 02-06 t} tablet by [facility] (65 mg 00:00: 00:00 oral route iron) 00 :00 every day tablet ferrous 2018-10 No 1{table Q1D take 1 [facility] ssH sulfate 325 0-18 02-06 t} tablet by [facility] (65 mg 00:00: 00:00 oral route iron) 00 :00 every day tablet ferrous 2018-10 No 1{table Q1D take 1 [facility] ssH sulfate 325 0-18 02-06 t} tablet by [facility] mg (65 mg 00:00: 00:00 oral route iron) 00 :00 every day tablet ferrous 2018-10- No 1{table Q1D take 1 [facility] ssH sulfate 325 0-18 02-06 t} tablet by [facility] mg (65 mg 00:00: 00:00 oral route iron) 00 :00 every day tablet ferrous 2018-10- No 1{table Q1D take 1 [facility] ssH sulfate 325 0-18 02-06 t} tablet by [facility] mg (65 mg 00:00: 00:00 oral route iron) 00 :00 every day tablet ferrous 2018-10- No 1{table Q1D take 1 [facility] ssH sulfate 325 0-18 02-06 t} tablet by [facility] (65 mg 00:00: 00:00 oral route iron) 00 :00 every day tablet Klonopin 1 2018-10- No 1{table Q8H take 1 [facility] mg tablet 0-11 02-06 t} tablet by [facility] 00:00: 00:00 oral route 00 :00 3 times every day Klonopin 1 2018-10 2020- No 1{table Q8H take 1 [facility] mg tablet 0-11 02-06 t} tablet by [facility] 00:00: 00:00 oral route 00 :00 3 times every day Klonopin 1 2018-10 2020- No 1{table Q8H take 1 [facility] mg tablet 0-11 02-06 t} tablet by [facility] 00:00: 00:00 oral route 00 :00 3 times every day Klonopin 1 2018-10 2020- No 1{table Q8H take 1 [facility] mg tablet 0-11 02-06 t} tablet by [facility] 00:00: 00:00 oral route 00 :00 3 times every day Klonopin 1 2018-10 2020- No 1{table Q8H take 1 [facility] mg tablet 0-11 02-06 t} tablet by [facility] 00:00: 00:00 oral route 00 :00 3 times every day Klonopin 1 2018-10 2020- No 1{table Q8H take 1 [facility] mg tablet 0-11 02-06 t} tablet by [facility] 00:00: 00:00 oral route 00 :00 3 times every day Klonopin 1 2018-10 2020- No 1{table Q8H take 1 [facility] mg tablet 0-11 02-06 t} tablet by [facility] 00:00: 00:00 oral route 00 :00 3 times every day Klonopin 1 2019-1 2020- No 1{table Q8H take 1 [facility] mg tablet 0-11 02-06 t} tablet by [facility] 00:00: 00:00 oral route 00 :00 3 times every day Klonopin 1 2019- 2020- No 1{table Q8H take 1 [facility] mg tablet 0-11 02-06 t} tablet by [facility] 00:00: 00:00 oral route 00 :00 3 times every day Klonopin 1 2019- 2020- No 1{table Q8H take 1 [facility] mg tablet 0-11 02-06 t} tablet by [facility] 00:00: 00:00 oral route 00 :00 3 times every day Klonopin 1 2019- 2020- No 1{table Q8H take 1 [facility] mg tablet 0-11 02-06 t} tablet by [facility] 00:00: 00:00 oral route 00 :00 3 times every day Klonopin 1 2019-1 2020- No 1{table Q8H take 1 [facility] mg tablet 0-11 02-06 t} tablet by [facility] 00:00: 00:00 oral route 00 :00 3 times every day Klonopin 1 2019-1 2020- No 1{table Q8H take 1 [facility] mg tablet 0-11 02-06 t} tablet by [facility] 00:00: 00:00 oral route 00 :00 3 times every day Klonopin 1 2019-1 2020- No 1{table Q8H take 1 [facility] mg tablet 0-11 02-06 t} tablet by [facility] 00:00: 00:00 oral route 00 :00 3 times every day Klonopin 1 2019-1 2020- No 1{table Q8H take 1 [facility] mg tablet 0-11 02-06 t} tablet by [facility] 00:00: 00:00 oral route 00 :00 3 times every day Klonopin 1 2019- 2020- No 1{table Q8H take 1 [facility] mg tablet 0-11 02-06 t} tablet by [facility] 00:00: 00:00 oral route 00 :00 3 times every day Klonopin 1 2019-1 2020- No 1{table Q8H take 1 [facility] mg tablet 0-11 02-06 t} tablet by [facility] 00:00: 00:00 oral route 00 :00 3 times every day Klonopin 1 2019-1 2020- No 1{table Q8H take 1 [facility] mg tablet 0-11 02-06 t} tablet by [facility] 00:00: 00:00 oral route 00 :00 3 times every day Klonopin 1 2019-1 2020- No 1{table Q8H take 1 [facility] mg tablet 0-11 02-06 t} tablet by [facility] 00:00: 00:00 oral route 00 :00 3 times every day Klonopin 1 2019-1 2020- No 1{table Q8H take 1 [facility] mg tablet 0-11 02-06 t} tablet by [facility] 00:00: 00:00 oral route 00 :00 3 times every day Klonopin 1 2019-1 2020- No 1{table Q8H take 1 [facility] mg tablet 0-11 02-06 t} tablet by [facility] 00:00: 00:00 oral route 00 :00 3 times every day Klonopin 1 2019-1 2020- No 1{table Q8H take 1 [facility] mg tablet 0-11 02-06 t} tablet by [facility] 00:00: 00:00 oral route 00 :00 3 times every day Klonopin 1 2019-1 2020- No 1{table Q8H take 1 [facility] mg tablet 0-11 02-06 t} tablet by [facility] 00:00: 00:00 oral route 00 :00 3 times every day Klonopin 1 2019-1 2020- No 1{table Q8H take 1 [facility] mg tablet 0-11 02-06 t} tablet by [facility] 00:00: 00:00 oral route 00 :00 3 times every day Klonopin 1 2019-1 2020- No 1{table Q8H take 1 [facility] mg tablet 0-11 02-06 t} tablet by [facility] 00:00: 00:00 oral route 00 :00 3 times every day Klonopin 1 2019-1 2020- No 1{table Q8H take 1 [facility] mg tablet 0-11 02-06 t} tablet by [facility] 00:00: 00:00 oral route 00 :00 3 times every day Klonopin 1 2019- 2020- No 1{table Q8H take 1 [facility] mg tablet 0-11 02-06 t} tablet by [facility] 00:00: 00:00 oral route 00 :00 3 times every day Klonopin 1 2018- 2020- No 1{table Q8H take 1 [facility] mg tablet 0-11 02-06 t} tablet by [facility] 00:00: 00:00 oral route 00 :00 3 times every day Klonopin 1 2018- 2020- No 1{table Q8H take 1 [facility] mg tablet 0-11 02-06 t} tablet by [facility] 00:00: 00:00 oral route 00 :00 3 times every day Klonopin 1 2018- 2020- No 1{table Q8H take 1 [facility] mg tablet 0-11 02-06 t} tablet by [facility] 00:00: 00:00 oral route 00 :00 3 times every day Klonopin 1 2019- 2020- No 1{table Q8H take 1 [facility] mg tablet 0-11 02-06 t} tablet by [facility] 00:00: 00:00 oral route 00 :00 3 times every day Klonopin 1 2019- 2020- No 1{table Q8H take 1 [facility] mg tablet 0-11 02-06 t} tablet by [facility] 00:00: 00:00 oral route 00 :00 3 times every day Klonopin 1 2018- 2020- No 1{table Q8H take 1 [facility]cess[facility] mg tablet 0-11 02-06 t} tablet by [facility] 00:00: 00:00 oral route 00 :00 3 times every day Klonopin 1 2019- 2020- No 1{table Q8H take 1 [facility] mg tablet 0-11 02-06 t} tablet by [facility] 00:00: 00:00 oral route 00 :00 3 times every day Klonopin 1 2019- 2020- No 1{table Q8H take 1 [facility] mg tablet 0-11 02-06 t} tablet by [facility] 00:00: 00:00 oral route 00 :00 3 times every day Klonopin 1 2018-10 2020- No 1{table Q8H take 1 [facility] mg tablet 0- t} tablet by [facility] 00:00: 00:00 oral route 00 :00 3 times every day Klonopin 1 2018-10 2020- No 1{table Q8H take 1 [facility] mg tablet 0- t} tablet by [facility] 00:00: 00:00 oral route 00 :00 3 times every day Klonopin 1 2018-10 2020- No 1{table Q8H take 1 [facility] mg tablet 0- t} tablet by [facility] 00:00: 00:00 oral route 00 :00 3 times every day butalbital- 2018-10 2020- No 1{capsu Q4H take 1 - 2 [facility] acetaminoph 0- le} capsule by [facility] en-caffeine 00:00: 00:00 oral route 50 mg-325 00 :00 every 4 mg-40 mg hours as capsule needed not to exceed 6 capsules per 24hrs gabapentin 2018-10 2020- No 3{capsu Q8H take 3 A ccess[facility] 300 mg 0- le} capsule by [facility] capsule 00:00: 00:00 oral route 00 :00 3 times every day meloxicam 2018-10 2020- No 2{table QD take 2 Ac cess[facility] 7.5 mg 0- t} tablet by [facility] tablet 00:00: 00:00 oral route 00 :00 every day as needed ProAir HFA 2018-10 2020- No 1{puff} Q4H inhale 1 [facility] 90 0-06 puff by [facility] mcg/actuati 00:00: 00:00 inhalation on aerosol 00 :00 route inhaler every 4 hours as needed sertraline 2018-10 2020- No 1{table Q12H take 1 A ccess[facility] 100 mg 0-06 t} tablet by [facility] tablet 00:00: 00:00 oral route 00 :00 2 times every day tizanidine 2018-10 2020- No 1{table Q6H take 1 A [facility]cess[facility] 4 mg tablet 0-06 t} tablet by [facility] 00:00: 00:00 oral route 00 :00 every 6 - 8 hours as needed not to exceed 3 doses in 24 hours butalbital- 2018-10 2020- No 1{capsu Q4H take 1 - 2 [facility] acetaminoph 0-06 17- le} capsule by [facility] en-caffeine 00:00: 00:00 oral route 50 mg-325 00 :00 every 4 mg-40 mg hours as capsule needed not to exceed 6 capsules per 24hrs gabapentin 2018-10 2020- No 3{capsu Q8H take 3 A ccess[facility] 300 mg 0-06 17- le} capsule by [facility] capsule 00:00: 00:00 oral route 00 :00 3 times every day meloxicam 2018-10 2020- No 2{table QD take 2 Ac cess[facility] 7.5 mg 0- t} tablet by [facility] tablet 00:00: 00:00 oral route 00 :00 every day as needed ProAir HFA 2018-10 2020- No 1{puff} Q4H inhale 1 [facility] 90 0- puff by [facility] mcg/actuati 00:00: 00:00 inhalation on aerosol 00 :00 route inhaler every 4 hours as needed sertraline 2018-10 2020- No 1{table Q12H take 1 A ccess[facility] 100 mg 0- t} tablet by [facility] tablet 00:00: 00:00 oral route 00 :00 2 times every day tizanidine 2018-10 2020- No 1{table Q6H take 1 A [facility]cess[facility] 4 mg tablet 0- t} tablet by [facility] 00:00: 00:00 oral route 00 :00 every 6 - 8 hours as needed not to exceed 3 doses in 24 hours butalbital- 2018-10 2020- No 1{capsu Q4H take 1 - 2 [facility] acetaminoph 0-06 17- le} capsule by [facility] en-caffeine 00:00: 00:00 oral route 50 mg-325 00 :00 every 4 mg-40 mg hours as capsule needed not to exceed 6 capsules per 24hrs gabapentin 2018-10 2020- No 3{capsu Q8H take 3 A ccess[facility] 300 mg 0-09 02-06 le} capsule by [facility] capsule 00:00: 00:00 oral route 00 :00 3 times every day meloxicam 2018-10 2020- No 2{table QD take 2 Ac cess[facility] 7.5 mg 0- 02-06 t} tablet by [facility] tablet 00:00: 00:00 oral route 00 :00 every day as needed ProAir HFA 2018-10 2020- No 1{puff} Q4H inhale 1 [facility] 90 0-09 02-06 puff by [facility] mcg/actuati 00:00: 00:00 inhalation on aerosol 00 :00 route inhaler every 4 hours as needed sertraline 2018-10 2020- No 1{table Q12H take 1 A ccess[facility] 100 mg 0- 02-06 t} tablet by [facility] tablet 00:00: 00:00 oral route 00 :00 2 times every day tizanidine 2018-10 2020- No 1{table Q6H take 1 A ccess[facility] 4 mg tablet 0- 02-06 t} tablet by [facility] 00:00: 00:00 oral route 00 :00 every 6 - 8 hours as needed not to exceed 3 doses in 24 hours butalbital- 2018-10 2020- No 1{capsu Q4H take 1 - 2 [facility] acetaminoph 0-06 17-06 le} capsule by [facility] en-caffeine 00:00: 00:00 oral route 50 mg-325 00 :00 every 4 mg-40 mg hours as capsule needed not to exceed 6 capsules per 24hrs gabapentin 2018-10 2020- No 3{capsu Q8H take 3 A ccess[facility] 300 mg 0-06 17-06 le} capsule by [facility] capsule 00:00: 00:00 oral route 00 :00 3 times every day meloxicam 2018-10 2020- No 2{table QD take 2 Ac cess[facility] 7.5 mg 0-09 02-06 t} tablet by [facility] tablet 00:00: 00:00 oral route 00 :00 every day as needed ProAir HFA 2018-10 2020- No 1{puff} Q4H inhale 1 [facility] 90 0-09 02-06 puff by [facility] mcg/actuati 00:00: 00:00 inhalation on aerosol 00 :00 route inhaler every 4 hours as needed sertraline 2019-1 2020- No 1{table Q12H take 1 A ccess[facility] 100 mg 0-09 02-06 t} tablet by [facility] tablet 00:00: 00:00 oral route 00 :00 2 times every day tizanidine 2018-10 2020- No 1{table Q6H take 1 A ccess[facility] 4 mg tablet 0-09 02-06 t} tablet by [facility] 00:00: 00:00 oral route 00 :00 every 6 - 8 hours as needed not to exceed 3 doses in 24 hours butalbital- 2018-10 2020- No 1{capsu Q4H take 1 - 2 [facility] acetaminoph 0- 02-06 le} capsule by [facility] en-caffeine 00:00: 00:00 oral route 50 mg-325 00 :00 every 4 mg-40 mg hours as capsule needed not to exceed 6 capsules per 24hrs gabapentin 2018-10 2020- No 3{capsu Q8H take 3 A ccess[facility] 300 mg 0-06 17-06 le} capsule by [facility] capsule 00:00: 00:00 oral route 00 :00 3 times every day meloxicam 2018-10 2020- No 2{table QD take 2 Ac cess[facility] 7.5 mg 0- 02-06 t} tablet by [facility] tablet 00:00: 00:00 oral route 00 :00 every day as needed ProAir HFA 2018-10 2020- No 1{puff} Q4H inhale 1 [facility] 90 0- 02-06 puff by [facility] mcg/actuati 00:00: 00:00 inhalation on aerosol 00 :00 route inhaler every 4 hours as needed sertraline 2018-10 2020- No 1{table Q12H take 1 A ccess[facility] 100 mg 0-09 02-06 t} tablet by [facility] tablet 00:00: 00:00 oral route 00 :00 2 times every day tizanidine 2018-10 2020- No 1{table Q6H take 1 A [facility] 4 mg tablet 0-09 02-06 t} tablet by [facility] 00:00: 00:00 oral route 00 :00 every 6 - 8 hours as needed not to exceed 3 doses in 24 hours butalbital- 2018-10 2020- No 1{capsu Q4H take 1 - 2 [facility] acetaminoph 0-09 02-06 le} capsule by [facility] en-caffeine 00:00: 00:00 oral route 50 mg-325 00 :00 every 4 mg-40 mg hours as capsule needed not to exceed 6 capsules per 24hrs gabapentin 2018-10 2020- No 3{capsu Q8H take 3 A ccess[facility] 300 mg 0- 02-06 le} capsule by [facility] capsule 00:00: 00:00 oral route 00 :00 3 times every day meloxicam 2018-10 2020- No 2{table QD take 2 Ac cess[facility] 7.5 mg 0- 02-06 t} tablet by [facility] tablet 00:00: 00:00 oral route 00 :00 every day as needed ProAir HFA 2018-10 2020- No 1{puff} Q4H inhale 1 [facility] 90 0- 02-06 puff by [facility] mcg/actuati 00:00: 00:00 inhalation on aerosol 00 :00 route inhaler every 4 hours as needed sertraline 2018-10 2020- No 1{table Q12H take 1 A ccess[facility] 100 mg 0- 02-06 t} tablet by [facility] tablet 00:00: 00:00 oral route 00 :00 2 times every day tizanidine 2018-10 2020- No 1{table Q6H take 1 A [facility]cess[facility] 4 mg tablet 0- 02-06 t} tablet by [facility] 00:00: 00:00 oral route 00 :00 every 6 - 8 hours as needed not to exceed 3 doses in 24 hours butalbital- 2018-10 2020- No 1{capsu Q4H take 1 - 2 [facility] acetaminoph 0- 02-06 le} capsule by [facility] en-caffeine 00:00: 00:00 oral route 50 mg-325 00 :00 every 4 mg-40 mg hours as capsule needed not to exceed 6 capsules per 24hrs gabapentin 2018-10 2020- No 3{capsu Q8H take 3 A ccess[facility] 300 mg 0-09 02-06 le} capsule by [facility] capsule 00:00: 00:00 oral route 00 :00 3 times every day meloxicam 2018-10 2020- No 2{table QD take 2 Ac cess[facility] 7.5 mg 0-09 02-06 t} tablet by [facility] tablet 00:00: 00:00 oral route 00 :00 every day as needed ProAir HFA 2018-10 2020- No 1{puff} Q4H inhale 1 [facility] 90 0-09 02-06 puff by [facility] mcg/actuati 00:00: 00:00 inhalation on aerosol 00 :00 route inhaler every 4 hours as needed sertraline 2018-10 2020- No 1{table Q12H take 1 A ccess[facility] 100 mg 0- 02-06 t} tablet by [facility] tablet 00:00: 00:00 oral route 00 :00 2 times every day tizanidine 2018-10 2020- No 1{table Q6H take 1 A ccess[facility] 4 mg tablet 0- 02-06 t} tablet by [facility] 00:00: 00:00 oral route 00 :00 every 6 - 8 hours as needed not to exceed 3 doses in 24 hours tizanidine 2018-10 2020- No 1{table Q6H take 1 A [facility]cess[facility] 4 mg tablet 0-06 17-06 t} tablet by [facility] 00:00: 00:00 oral route 00 :00 every 6 - 8 hours as needed not to exceed 3 doses in 24 hours sertraline 2018-10 2020- No 1{table Q12H take 1 A ccess[facility] 100 mg 0- 02-06 t} tablet by [facility] tablet 00:00: 00:00 oral route 00 :00 2 times every day ProAir HFA 2018-10 2020- No 1{puff} Q4H inhale 1 [facility] 90 0-09 02-06 puff by [facility] mcg/actuati 00:00: 00:00 inhalation on aerosol 00 :00 route inhaler every 4 hours as needed meloxicam 2018-10 2020- No 2{table QD take 2 Ac cess[facility] 7.5 mg 0- 02-06 t} tablet by [facility] tablet 00:00: 00:00 oral route 00 :00 every day as needed gabapentin 2018-10 2020- No 3{capsu Q8H take 3 A ccess[facility] 300 mg 0- 02-06 le} capsule by [facility] capsule 00:00: 00:00 oral route 00 :00 3 times every day butalbital- 2018-10 2020- No 1{capsu Q4H take 1 - 2 [facility] acetaminoph 0-09 02- le} capsule by [facility] en-caffeine 00:00: 00:00 oral route 50 mg-325 00 :00 every 4 mg-40 mg hours as capsule needed not to exceed 6 capsules per 24hrs butalbital- 2018-10 2020- No 1{capsu Q4H take 1 - 2 [facility] acetaminoph 0- 02-06 le} capsule by [facility] en-caffeine 00:00: 00:00 oral route 50 mg-325 00 :00 every 4 mg-40 mg hours as capsule needed not to exceed 6 capsules per 24hrs gabapentin 2018-10 2020- No 3{capsu Q8H take 3 A ccess[facility] 300 mg 0-06 17- le} capsule by [facility] capsule 00:00: 00:00 oral route 00 :00 3 times every day meloxicam 2018-10 2020- No 2{table QD take 2 Ac cess[facility] 7.5 mg 0- t} tablet by [facility] tablet 00:00: 00:00 oral route 00 :00 every day as needed ProAir HFA 2018-10 2020- No 1{puff} Q4H inhale 1 [facility] 90 0- puff by [facility] mcg/actuati 00:00: 00:00 inhalation on aerosol 00 :00 route inhaler every 4 hours as needed sertraline 2018-10 2020- No 1{table Q12H take 1 A ccess[facility] 100 mg 0-06 17- t} tablet by [facility] tablet 00:00: 00:00 oral route 00 :00 2 times every day tizanidine 2018-10 2020- No 1{table Q6H take 1 A ccess[facility] 4 mg tablet 0- t} tablet by [facility] 00:00: 00:00 oral route 00 :00 every 6 - 8 hours as needed not to exceed 3 doses in 24 hours butalbital- 2018-10 2020- No 1{capsu Q4H take 1 - 2 [facility] acetaminoph 0- 02-06 le} capsule by [facility] en-caffeine 00:00: 00:00 oral route 50 mg-325 00 :00 every 4 mg-40 mg hours as capsule needed not to exceed 6 capsules per 24hrs gabapentin 2018-10 2020- No 3{capsu Q8H take 3 A ccess[facility] 300 mg 0-09 02-06 le} capsule by [facility] capsule 00:00: 00:00 oral route 00 :00 3 times every day meloxicam 2018-10 2020- No 2{table QD take 2 Ac cess[facility] 7.5 mg 0-09 02-06 t} tablet by [facility] tablet 00:00: 00:00 oral route 00 :00 every day as needed ProAir HFA 2018-10 2020- No 1{puff} Q4H inhale 1 [facility] 90 0-09 02-06 puff by [facility] mcg/actuati 00:00: 00:00 inhalation on aerosol 00 :00 route inhaler every 4 hours as needed sertraline 2018-10 2020- No 1{table Q12H take 1 A ccess[facility] 100 mg 0-09 02-06 t} tablet by [facility] tablet 00:00: 00:00 oral route 00 :00 2 times every day tizanidine 2018-10 2020- No 1{table Q6H take 1 A ccess[facility] 4 mg tablet 0- 02-06 t} tablet by [facility] 00:00: 00:00 oral route 00 :00 every 6 - 8 hours as needed not to exceed 3 doses in 24 hours butalbital- 2018-10 2020- No 1{capsu Q4H take 1 - 2 [facility] acetaminoph 0- 02-06 le} capsule by [facility] en-caffeine 00:00: 00:00 oral route 50 mg-325 00 :00 every 4 mg-40 mg hours as capsule needed not to exceed 6 capsules per 24hrs gabapentin 2018-10 2020- No 3{capsu Q8H take 3 A ccess[facility] 300 mg 0-09 02-06 le} capsule by [facility] capsule 00:00: 00:00 oral route 00 :00 3 times every day meloxicam 2018-10 2020- No 2{table QD take 2 Ac cess[facility] 7.5 mg 0-09 02-06 t} tablet by [facility] tablet 00:00: 00:00 oral route 00 :00 every day as needed ProAir HFA 2018-10 2020- No 1{puff} Q4H inhale 1 [facility] 90 0-09 02-06 puff by [facility] mcg/actuati 00:00: 00:00 inhalation on aerosol 00 :00 route inhaler every 4 hours as needed sertraline 2018-10 2020- No 1{table Q12H take 1 A ccess[facility] 100 mg 0-09 02-06 t} tablet by [facility] tablet 00:00: 00:00 oral route 00 :00 2 times every day tizanidine 2018-10 2020- No 1{table Q6H take 1 A ccess[facility] 4 mg tablet 0- 02-06 t} tablet by [facility] 00:00: 00:00 oral route 00 :00 every 6 - 8 hours as needed not to exceed 3 doses in 24 hours butalbital- 2018-10 2020- No 1{capsu Q4H take 1 - 2 [facility] acetaminoph 0-06 17- le} capsule by [facility] en-caffeine 00:00: 00:00 oral route 50 mg-325 00 :00 every 4 mg-40 mg hours as capsule needed not to exceed 6 capsules per 24hrs gabapentin 2018-10 2020- No 3{capsu Q8H take 3 A ccess[facility] 300 mg 0- le} capsule by [facility] capsule 00:00: 00:00 oral route 00 :00 3 times every day meloxicam 2018-10 2020- No 2{table QD take 2 Ac cess[facility] 7.5 mg 0-06 17-06 t} tablet by [facility] tablet 00:00: 00:00 oral route 00 :00 every day as needed ProAir HFA 2018-10 2020- No 1{puff} Q4H inhale 1 [facility] 90 0-06 17-06 puff by [facility] mcg/actuati 00:00: 00:00 inhalation on aerosol 00 :00 route inhaler every 4 hours as needed sertraline 2018-10 2020- No 1{table Q12H take 1 A ccess[facility] 100 mg 0- 02-06 t} tablet by [facility] tablet 00:00: 00:00 oral route 00 :00 2 times every day tizanidine 2018-10 2020- No 1{table Q6H take 1 A ccess[facility] 4 mg tablet 0- 02-06 t} tablet by [facility] 00:00: 00:00 oral route 00 :00 every 6 - 8 hours as needed not to exceed 3 doses in 24 hours butalbital- 2018-10 2020- No 1{capsu Q4H take 1 - 2 [facility] acetaminoph 0-09 02-06 le} capsule by e [facility] en-caffeine 00:00: 00:00 oral route 50 mg-325 00 :00 every 4 mg-40 mg hours as capsule needed not to exceed 6 capsules per 24hrs gabapentin 2018-10 2020- No 3{capsu Q8H take 3 A ccess[facility] 300 mg 0- 02-06 le} capsule by [facility] capsule 00:00: 00:00 oral route 00 :00 3 times every day meloxicam 2018-10 2020- No 2{table QD take 2 Ac cess[facility] 7.5 mg 0-06 17-06 t} tablet by [facility] tablet 00:00: 00:00 oral route 00 :00 every day as needed ProAir HFA 2018-10 2020- No 1{puff} Q4H inhale 1 [facility] 90 0-06 17- puff by [facility] mcg/actuati 00:00: 00:00 inhalation on aerosol 00 :00 route inhaler every 4 hours as needed sertraline 2018-10 2020- No 1{table Q12H take 1 A ccess[facility] 100 mg 0-06 17-06 t} tablet by [facility] tablet 00:00: 00:00 oral route 00 :00 2 times every day tizanidine 2018-10 2020- No 1{table Q6H take 1 A ccess[facility] 4 mg tablet 0- 02-06 t} tablet by [facility] 00:00: 00:00 oral route 00 :00 every 6 - 8 hours as needed not to exceed 3 doses in 24 hours butalbital- 2018-10 2020- No 1{capsu Q4H take 1 - 2 Access[facility] acetaminoph 0-09 02-06 le} capsule by e alth en-caffeine 00:00: 00:00 oral route 50 mg-325 00 :00 every 4 mg-40 mg hours as capsule needed not to exceed 6 capsules per 24hrs gabapentin 2018-10 2020- No 3{capsu Q8H take 3 A ccessH 300 mg 0-09 02-06 le} capsule by ealth capsule 00:00: 00:00 oral route 00 :00 3 times every day meloxicam 2018-10 2020- No 2{table QD take 2 Ac cessH 7.5 mg 0- 02-06 t} tablet by ealth tablet 00:00: 00:00 oral route 00 :00 every day as needed ProAir HFA 2018-10 2020- No 1{puff} Q4H inhale 1 AccessH 90 0-09 02-06 puff by ealth mcg/actuati 00:00: 00:00 inhalation on aerosol 00 :00 route inhaler every 4 hours as needed sertraline 2018-10 2020- No 1{table Q12H take 1 A ccessH 100 mg 0-09 02-06 t} tablet by ealth tablet 00:00: 00:00 oral route 00 :00 2 times every day tizanidine 2018-10 2020- No 1{table Q6H take 1 A ccessH 4 mg tablet 0- 02-06 t} tablet by ea lth 00:00: 00:00 oral route 00 :00 every 6 - 8 hours as needed not to exceed 3 doses in 24 hours butalbital- 2018-10 2020- No 1{capsu Q4H take 1 - 2 [facility] acetaminoph 0-06 17-06 le} capsule by [facility]-caffeine 00:00: 00:00 oral route 50 mg-325 00 :00 every 4 mg-40 mg hours as capsule needed not to exceed 6 capsules per 24hrs gabapentin 2018-10 2020- No 3{capsu Q8H take 3 A [facility] 300 mg 0-06 17-06 le} capsule by [facility] 00:00: 00:00 oral route 00 :00 3 times every day meloxicam 2018-10 2020- No 2{table QD take 2 Ac [facility] 7.5 mg 0- 02-06 t} tablet by [facility] tablet 00:00: 00:00 oral route 00 :00 every day as needed ProAir HFA 2018-10 2020- No 1{puff} Q4H inhale 1 [facility] 90 0-09 02-06 puff by [facility] mcg/actuati 00:00: 00:00 inhalation on aerosol 00 :00 route inhaler every 4 hours as needed sertraline 2018-10 2020- No 1{table Q12H take 1 A [facility] 100 mg 0-09 02-06 t} tablet by [facility] tablet 00:00: 00:00 oral route 00 :00 2 times every day tizanidine 2018-10 2020- No 1{table Q6H take 1 A [facility] 4 mg tablet 0- 02-06 t} tablet by [facility] 00:00: 00:00 oral route 00 :00 every 6 - 8 hours as needed not to exceed 3 doses in 24 hours butalbital- 2018-10 2020- No 1{capsu Q4H take 1 - 2 [facility] acetaminoph 0- 02-06 le} capsule by [facility]caffeine 00:00: 00:00 oral route 50 mg-325 00 :00 every 4 mg-40 mg hours as capsule needed not to exceed 6 capsules per 24hrs gabapentin 2018-10 2020- No 3{capsu Q8H take 3 A c[facility] 300 mg 0-06 17- le} capsule by [facility] 00:00: 00:00 oral route 00 :00 3 times every day meloxicam 2018-10 2020- No 2{table QD take 2 Ac [facility] 7.5 mg 0-06 t} tablet by [facility] tablet 00:00: 00:00 oral route 00 :00 every day as needed ProAir HFA 2018-10 2020- No 1{puff} Q4H inhale 1 [facility] 90 0- 02-06 puff by [facility] mcg/actuati 00:00: 00:00 inhalation on aerosol 00 :00 route inhaler every 4 hours as needed sertraline 2018-10 2020- No 1{table Q12H take 1 A [facility] 100 mg 0-06 17-06 t} tablet by [facility] tablet 00:00: 00:00 oral route 00 :00 2 times every day tizanidine 2018-10 2020- No 1{table Q6H take 1 A [facility] 4 mg tablet 0- 02-06 t} tablet by [facility] 00:00: 00:00 oral route 00 :00 every 6 - 8 hours as needed not to exceed 3 doses in 24 hours butalbital- 2018-10 2020- No 1{capsu Q4H take 1 - 2 [facility] acetaminoph 0- 02-06 le} capsule by [facility]-caffeine 00:00: 00:00 oral route 50 mg-325 00 :00 every 4 mg-40 mg hours as capsule needed not to exceed 6 capsules per 24hrs gabapentin 2018-10 2020- No 3{capsu Q8H take 3 A [facility] 300 mg 0-09 02-06 le} capsule by [facility] 00:00: 00:00 oral route 00 :00 3 times every day butalbital- 2018-10 2020- No 1{capsu Q4H take 1 - 2 [facility] acetaminoph 0-09 02-06 le} capsule by [facility]-caffeine 00:00: 00:00 oral route 50 mg-325 00 :00 every 4 mg-40 mg hours as capsule needed not to exceed 6 capsules per 24hrs gabapentin 2019- 2020- No 3{capsu Q8H take 3 A c[facility] 300 mg 0-09 02-06 le} capsule by [facility] capsule 00:00: 00:00 oral route 00 :00 3 times every day meloxicam 2018-10 2020- No 2{table QD take 2 Ac [facility] 7.5 mg 0-09 02-06 t} tablet by [facility] tablet 00:00: 00:00 oral route 00 :00 every day as needed ProAir HFA 2018-10 2020- No 1{puff} Q4H inhale 1 [facility] 90 0-09 02-06 puff by [facility] mcg/actuati 00:00: 00:00 inhalation on aerosol 00 :00 route inhaler every 4 hours as needed sertraline 2018-10 2020- No 1{table Q12H take 1 A [facility] 100 mg 0-09 02-06 t} tablet by [facility] tablet 00:00: 00:00 oral route 00 :00 2 times every day meloxicam 2018-10 2020- No 2{table QD take 2 [facility] 7.5 mg 0-09 02-06 t} tablet by [facility] tablet 00:00: 00:00 oral route 00 :00 every day as needed tizanidine 2018-10 2020- No 1{table Q6H take 1 A [facility] 4 mg tablet 0-09 02-06 t} tablet by [facility] 00:00: 00:00 oral route 00 :00 every 6 - 8 hours as needed not to exceed 3 doses in 24 hours ProAir HFA 2018-10 2020- No 1{puff} Q4H inhale 1 [facility] 90 0-09 02-06 puff by [facility] mcg/actuati 00:00: 00:00 inhalation on aerosol 00 :00 route inhaler every 4 hours as needed sertraline 2018-10 2020- No 1{table Q12H take 1 A [facility] 100 mg 0-09 02-06 t} tablet by [facility] tablet 00:00: 00:00 oral route 00 :00 2 times every day tizanidine 2018-10 2020- No 1{table Q6H take 1 A [facility] 4 mg tablet 0- 02-06 t} tablet by [facility] 00:00: 00:00 oral route 00 :00 every 6 - 8 hours as needed not to exceed 3 doses in 24 hours butalbital- 2018-10 2020- No 1{capsu Q4H take 1 - 2 [facility] acetaminoph 0-06 17- le} capsule by [facility]caffe[facility] 00:00: 00:00 oral route 50 mg-325 00 :00 every 4 mg-40 mg hours as capsule needed not to exceed 6 capsules per 24hrs gabapentin 2018-10 2020- No 3{capsu Q8H take 3 A [facility] 300 mg 0- le} capsule by [facility] capsule 00:00: 00:00 oral route 00 :00 3 times every day meloxicam 2018-10 2020- No 2{table QD take 2 Ac [facility] 7.5 mg 0-06 17-06 t} tablet by [facility] tablet 00:00: 00:00 oral route 00 :00 every day as needed ProAir HFA 2018-10 2020- No 1{puff} Q4H inhale 1 [facility] 90 0- 02-06 puff by [facility] mcg/actuati 00:00: 00:00 inhalation on aerosol 00 :00 route inhaler every 4 hours as needed sertraline 2018-10 2020- No 1{table Q12H take 1 A [facility] 100 mg 0-09 02-06 t} tablet by [facility] tablet 00:00: 00:00 oral route 00 :00 2 times every day tizanidine 2018-10 2020- No 1{table Q6H take 1 A [facility] 4 mg tablet 0- 02-06 t} tablet by [facility] 00:00: 00:00 oral route 00 :00 every 6 - 8 hours as needed not to exceed 3 doses in 24 hours butalbital- 2018-10 2020- No 1{capsu Q4H take 1 - 2 [facility] acetaminoph 0-09 02-06 le} capsule by [facility]caffe[facility] 00:00: 00:00 oral route 50 mg-325 00 :00 every 4 mg-40 mg hours as capsule needed not to exceed 6 capsules per 24hrs gabapentin 2018-10 2020- No 3{capsu Q8H take 3 A [facility] 300 mg 0-09 02-06 le} capsule by [facility] capsule 00:00: 00:00 oral route 00 :00 3 times every day meloxicam 2018-10 2020- No 2{table QD take 2 [facility] 7.5 mg 0- 02-06 t} tablet by [facility] tablet 00:00: 00:00 oral route 00 :00 every day as needed ProAir HFA 2018-10 2020- No 1{puff} Q4H inhale 1 [facility] 90 0- 02-06 puff by [facility] mcg/actuati 00:00: 00:00 inhalation on aerosol 00 :00 route inhaler every 4 hours as needed sertraline 2018-10 2020- No 1{table Q12H take 1 A [facility] 100 mg 0- 02-06 t} tablet by [facility] tablet 00:00: 00:00 oral route 00 :00 2 times every day tizanidine 2018-10 2020- No 1{table Q6H take 1 A [facility] 4 mg tablet 0- 02-06 t} tablet by [facility] 00:00: 00:00 oral route 00 :00 every 6 - 8 hours as needed not to exceed 3 doses in 24 hours butalbital- 2018-10 2020- No 1{capsu Q4H take 1 - 2 [facility] acetaminoph 0-09 02-06 le} capsule by [facility]caffe[facility] 00:00: 00:00 oral route 50 mg-325 00 :00 every 4 mg-40 mg hours as capsule needed not to exceed 6 capsules per 24hrs gabapentin 2018-10 2020- No 3{capsu Q8H take 3 A [facility] 300 mg 0-09 02-06 le} capsule by [facility] capsule 00:00: 00:00 oral route 00 :00 3 times every day meloxicam 2018-10 2020- No 2{table QD take 2 [facility] 7.5 mg 0-09 02-06 t} tablet by [facility] tablet 00:00: 00:00 oral route 00 :00 every day as needed ProAir HFA 2018-10 2020- No 1{puff} Q4H inhale 1 [facility] 90 0-09 02-06 puff by [facility] mcg/actuati 00:00: 00:00 inhalation on aerosol 00 :00 route inhaler every 4 hours as needed sertraline 2018-10 2020- No 1{table Q12H take 1 A [facility] 100 mg 0-09 02-06 t} tablet by [facility] tablet 00:00: 00:00 oral route 00 :00 2 times every day tizanidine 2018-10 2020- No 1{table Q6H take 1 A [facility] 4 mg tablet 0- 02-06 t} tablet by [facility] 00:00: 00:00 oral route 00 :00 every 6 - 8 hours as needed not to exceed 3 doses in 24 hours butalbital- 2018-10 2020- No 1{capsu Q4H take 1 - 2 [facility] acetaminoph 0- 02-06 le} capsule by [facility]caffe[facility] 00:00: 00:00 oral route 50 mg-325 00 :00 every 4 mg-40 mg hours as capsule needed not to exceed 6 capsules per 24hrs gabapentin 2018-10 2020- No 3{capsu Q8H take 3 A [facility] 300 mg 0- 02-06 le} capsule by [facility] capsule 00:00: 00:00 oral route 00 :00 3 times every day meloxicam 2018-10 2020- No 2{table QD take 2 [facility] 7.5 mg 0-09 02-06 t} tablet by [facility] tablet 00:00: 00:00 oral route 00 :00 every day as needed ProAir HFA 2018-10 2020- No 1{puff} Q4H inhale 1 [facility] 90 0-09 02-06 puff by [facility] mcg/actuati 00:00: 00:00 inhalation on aerosol 00 :00 route inhaler every 4 hours as needed sertraline 2018-10 2020- No 1{table Q12H take 1 A [facility] 100 mg 0-09 02-06 t} tablet by [facility] tablet 00:00: 00:00 oral route 00 :00 2 times every day tizanidine 2018-10 2020- No 1{table Q6H take 1 A [facility] 4 mg tablet 0- 02-06 t} tablet by [facility] 00:00: 00:00 oral route 00 :00 every 6 - 8 hours as needed not to exceed 3 doses in 24 hours butalbital- 2018-10 2020- No 1{capsu Q4H take 1 - 2 [facility] acetaminoph 0- 02-06 le} capsule by [facility]caffe[facility] 00:00: 00:00 oral route 50 mg-325 00 :00 every 4 mg-40 mg hours as capsule needed not to exceed 6 capsules per 24hrs gabapentin 2018-10 2020- No 3{capsu Q8H take 3 A [facility] 300 mg 0-06 17- le} capsule by [facility] capsule 00:00: 00:00 oral route 00 :00 3 times every day meloxicam 2018-10 2020- No 2{table QD take 2 [facility] 7.5 mg 0-06 17-06 t} tablet by [facility] tablet 00:00: 00:00 oral route 00 :00 every day as needed ProAir HFA 2018-10 2020- No 1{puff} Q4H inhale 1 [facility] 90 0- 02-06 puff by [facility] mcg/actuati 00:00: 00:00 inhalation on aerosol 00 :00 route inhaler every 4 hours as needed sertraline 2018-10 2020- No 1{table Q12H take 1 A [facility] 100 mg 0- 02-06 t} tablet by [facility] tablet 00:00: 00:00 oral route 00 :00 2 times every day tizanidine 2018-10 2020- No 1{table Q6H take 1 A [facility] 4 mg tablet 0- 02-06 t} tablet by [facility] 00:00: 00:00 oral route 00 :00 every 6 - 8 hours as needed not to exceed 3 doses in 24 hours butalbital- 2018-10 2020- No 1{capsu Q4H take 1 - 2 [facility] acetaminoph 0-09 02-06 le} capsule by [facility]caffe[facility] 00:00: 00:00 oral route 50 mg-325 00 :00 every 4 mg-40 mg hours as capsule needed not to exceed 6 capsules per 24hrs gabapentin 2019- 2020- No 3{capsu Q8H take 3 A c[facility] 300 mg 0-09 02-06 le} capsule by [facility] capsule 00:00: 00:00 oral route 00 :00 3 times every day meloxicam 2018-10 2020- No 2{table QD take 2 Ac [facility] 7.5 mg 0-09 02-06 t} tablet by [facility] tablet 00:00: 00:00 oral route 00 :00 every day as needed ProAir HFA 2018-10 2020- No 1{puff} Q4H inhale 1 [facility] 90 0-09 02-06 puff by [facility] mcg/actuati 00:00: 00:00 inhalation on aerosol 00 :00 route inhaler every 4 hours as needed sertraline 2018-10 2020- No 1{table Q12H take 1 A [facility] 100 mg 0-09 02-06 t} tablet by [facility] tablet 00:00: 00:00 oral route 00 :00 2 times every day butalbital- 2018-10 2020- No 1{capsu Q4H take 1 - 2 [facility] acetaminoph 0-09 02-06 le} capsule by [facility]caffe[facility] 00:00: 00:00 oral route 50 mg-325 00 :00 every 4 mg-40 mg hours as capsule needed not to exceed 6 capsules per 24hrs gabapentin 2018-10 2020- No 3{capsu Q8H take 3 A c[facility] 300 mg 0-09 02-06 le} capsule by [facility] capsule 00:00: 00:00 oral route 00 :00 3 times every day meloxicam 2018-10 2020- No 2{table QD take 2 [facility] 7.5 mg 0-09 02-06 t} tablet by [facility] tablet 00:00: 00:00 oral route 00 :00 every day as needed ProAir HFA 2018-10 2020- No 1{puff} Q4H inhale 1 [facility] 90 0-09 02-06 puff by [facility] mcg/actuati 00:00: 00:00 inhalation on aerosol 00 :00 route inhaler every 4 hours as needed sertraline 2018-10 2020- No 1{table Q12H take 1 A [facility] 100 mg 0-09 02-06 t} tablet by [facility] tablet 00:00: 00:00 oral route 00 :00 2 times every day tizanidine 2018-10 2020- No 1{table Q6H take 1 A [facility] 4 mg tablet 0- t} tablet by [facility] 00:00: 00:00 oral route 00 :00 every 6 - 8 hours as needed not to exceed 3 doses in 24 hours tizanidine 2018-10 2020- No 1{table Q6H take 1 A [facility] 4 mg tablet 0- t} tablet by [facility] 00:00: 00:00 oral route 00 :00 every 6 - 8 hours as needed not to exceed 3 doses in 24 hours butalbital- 2018-10 2020- No 1{capsu Q4H take 1 - 2 [facility] acetaminoph 0- le} capsule by [facility]caffe[facility] 00:00: 00:00 oral route 50 mg-325 00 :00 every 4 mg-40 mg hours as capsule needed not to exceed 6 capsules per 24hrs gabapentin 2018-10 2020- No 3{capsu Q8H take 3 A [facility] 300 mg 0- le} capsule by [facility] capsule 00:00: 00:00 oral route 00 :00 3 times every day meloxicam 2018-10 2020- No 2{table QD take 2 [facility] 7.5 mg 0- t} tablet by [facility] tablet 00:00: 00:00 oral route 00 :00 every day as needed ProAir HFA 2018-10 2020- No 1{puff} Q4H inhale 1 [facility] 90 0- puff by [facility] mcg/actuati 00:00: 00:00 inhalation on aerosol 00 :00 route inhaler every 4 hours as needed sertraline 2018-10 2020- No 1{table Q12H take 1 A [facility] 100 mg 0-06 17-06 t} tablet by [facility] tablet 00:00: 00:00 oral route 00 :00 2 times every day tizanidine 2018-10 2020- No 1{table Q6H take 1 A [facility] 4 mg tablet 0-06 t} tablet by [facility] 00:00: 00:00 oral route 00 :00 every 6 - 8 hours as needed not to exceed 3 doses in 24 hours butalbital- 2018-10 2020- No 1{capsu Q4H take 1 - 2 [facility] acetaminoph 0-09 02-06 le} capsule by [facility]caffe[facility] 00:00: 00:00 oral route 50 mg-325 00 :00 every 4 mg-40 mg hours as capsule needed not to exceed 6 capsules per 24hrs gabapentin 2018-10 2020- No 3{capsu Q8H take 3 A ccess[facility] 300 mg 0-09 02-06 le} capsule by [facility] capsule 00:00: 00:00 oral route 00 :00 3 times every day meloxicam 2018-10 2020- No 2{table QD take 2 Ac [facility] 7.5 mg 0-06 17-06 t} tablet by [facility] tablet 00:00: 00:00 oral route 00 :00 every day as needed ProAir HFA 2018-10 2020- No 1{puff} Q4H inhale 1 [facility] 90 0- 02-06 puff by [facility] mcg/actuati 00:00: 00:00 inhalation on aerosol 00 :00 route inhaler every 4 hours as needed sertraline 2018-10 2020- No 1{table Q12H take 1 A c[facility] 100 mg 0- 02-06 t} tablet by [facility] tablet 00:00: 00:00 oral route 00 :00 2 times every day tizanidine 2018-10 2020- No 1{table Q6H take 1 A [facility] 4 mg tablet 0- 02-06 t} tablet by [facility] 00:00: 00:00 oral route 00 :00 every 6 - 8 hours as needed not to exceed 3 doses in 24 hours butalbital- 2018-10 2020- No 1{capsu Q4H take 1 - 2 [facility] acetaminoph 0-09 02-06 le} capsule by [facility]caffeine 00:00: 00:00 oral route 50 mg-325 00 :00 every 4 mg-40 mg hours as capsule needed not to exceed 6 capsules per 24hrs gabapentin 2018-10 2020- No 3{capsu Q8H take 3 A ccess[facility] 300 mg 0-09 02-06 le} capsule by [facility] capsule 00:00: 00:00 oral route 00 :00 3 times every day meloxicam 2018-10 2020- No 2{table QD take 2 Ac [facility] 7.5 mg 0-09 02-06 t} tablet by [facility] tablet 00:00: 00:00 oral route 00 :00 every day as needed ProAir HFA 2018-10 2020- No 1{puff} Q4H inhale 1 [facility] 90 0-09 02-06 puff by [facility] mcg/actuati 00:00: 00:00 inhalation on aerosol 00 :00 route inhaler every 4 hours as needed sertraline 2018-10 2020- No 1{table Q12H take 1 A [facility] 100 mg 0-09 02-06 t} tablet by [facility] tablet 00:00: 00:00 oral route 00 :00 2 times every day tizanidine 2018-10- No 1{table Q6H take 1 A [facility] 4 mg tablet 0- 02-06 t} tablet by [facility] 00:00: 00:00 oral route 00 :00 every 6 - 8 hours as needed not to exceed 3 doses in 24 hours butalbital- 2018-10 2020- No 1{capsu Q4H take 1 - 2 [facility] acetaminoph 0- 02-06 le} capsule by [facility]caffeine 00:00: 00:00 oral route 50 mg-325 00 :00 every 4 mg-40 mg hours as capsule needed not to exceed 6 capsules per 24hrs gabapentin 2018-10 2020- No 3{capsu Q8H take 3 A ccess[facility] 300 mg 0- 02-06 le} capsule by [facility] capsule 00:00: 00:00 oral route 00 :00 3 times every day meloxicam 2018-10 2020- No 2{table QD take 2 Ac [facility] 7.5 mg 0-09 02-06 t} tablet by [facility] tablet 00:00: 00:00 oral route 00 :00 every day as needed ProAir HFA 2018-10- No 1{puff} Q4H inhale 1 [facility] 90 0-09 02-06 puff by [facility] mcg/actuati 00:00: 00:00 inhalation on aerosol 00 :00 route inhaler every 4 hours as needed sertraline 2018-10- No 1{table Q12H take 1 A c[facility] 100 mg 0-09 02-06 t} tablet by [facility] tablet 00:00: 00:00 oral route 00 :00 2 times every day tizanidine 2018-10 2020- No 1{table Q6H take 1 A c[facility] 4 mg tablet 0-06 17- t} tablet by [facility] 00:00: 00:00 oral route 00 :00 every 6 - 8 hours as needed not to exceed 3 doses in 24 hours butalbital- 2018-10 2020- No 1{capsu Q4H take 1 - 2 [facility] acetaminoph 0-06 17- le} capsule by [facility]caffeine 00:00: 00:00 oral route 50 mg-325 00 :00 every 4 mg-40 mg hours as capsule needed not to exceed 6 capsules per 24hrs gabapentin 2018-10 2020- No 3{capsu Q8H take 3 A c[facility] 300 mg 0- le} capsule by [facility] capsule 00:00: 00:00 oral route 00 :00 3 times every day meloxicam 2018-10 2020- No 2{table QD take 2 Ac [facility] 7.5 mg 0- t} tablet by [facility] tablet 00:00: 00:00 oral route 00 :00 every day as needed ProAir HFA 2018-10 2020- No 1{puff} Q4H inhale 1 [facility] 90 0- puff by [facility] mcg/actuati 00:00: 00:00 inhalation on aerosol 00 :00 route inhaler every 4 hours as needed butalbital- 2018-10 2020- No 1{capsu Q4H take 1 - 2 [facility] acetaminoph 0- le} capsule by [facility]-caffeine 00:00: 00:00 oral route 50 mg-325 00 :00 every 4 mg-40 mg hours as capsule needed not to exceed 6 capsules per 24hrs sertraline 2018-10 2020- No 1{table Q12H take 1 A ccess[facility] 100 mg 0-06 17-06 t} tablet by [facility] tablet 00:00: 00:00 oral route 00 :00 2 times every day tizanidine 2018-10 2020- No 1{table Q6H take 1 A ccess[facility] 4 mg tablet 0-06 t} tablet by [facility] 00:00: 00:00 oral route 00 :00 every 6 - 8 hours as needed not to exceed 3 doses in 24 hours gabapentin 2018-10 2020- No 3{capsu Q8H take 3 A ccess[facility] 300 mg 0- 02-06 le} capsule by [facility] capsule 00:00: 00:00 oral route 00 :00 3 times every day meloxicam 2018-10 2020- No 2{table QD take 2 Ac [facility] 7.5 mg 0- 02-06 t} tablet by [facility] tablet 00:00: 00:00 oral route 00 :00 every day as needed ProAir HFA 2018-10 2020- No 1{puff} Q4H inhale 1 [facility] 90 0- 02-06 puff by [facility] mcg/actuati 00:00: 00:00 inhalation on aerosol 00 :00 route inhaler every 4 hours as needed sertraline 2018-10 2020- No 1{table Q12H take 1 A ccess[facility] 100 mg 0- 02-06 t} tablet by [facility] tablet 00:00: 00:00 oral route 00 :00 2 times every day tizanidine 2018-10 2020- No 1{table Q6H take 1 A ccess[facility] 4 mg tablet 0- 02-06 t} tablet by [facility] 00:00: 00:00 oral route 00 :00 every 6 - 8 hours as needed not to exceed 3 doses in 24 hours butalbital- 2018-10 2020- No 1{capsu Q4H take 1 - 2 [facility] acetaminoph 0- 02-06 le} capsule by [facility] en-caffeine 00:00: 00:00 oral route 50 mg-325 00 :00 every 4 mg-40 mg hours as capsule needed not to exceed 6 capsules per 24hrs gabapentin 2018-10 2020- No 3{capsu Q8H take 3 A ccessH 300 mg 0-09 02-06 le} capsule by [facility] capsule 00:00: 00:00 oral route 00 :00 3 times every day meloxicam 2018-10 2020- No 2{table QD take 2 Ac [facility] 7.5 mg 0-09 02-06 t} tablet by [facility] tablet 00:00: 00:00 oral route 00 :00 every day as needed ProAir HFA 2018-10 2020- No 1{puff} Q4H inhale 1 [facility] 90 0-09 02-06 puff by [facility] mcg/actuati 00:00: 00:00 inhalation on aerosol 00 :00 route inhaler every 4 hours as needed sertraline 2018-10 2020- No 1{table Q12H take 1 A ccessH 100 mg 0-09 02-06 t} tablet by [facility] tablet 00:00: 00:00 oral route 00 :00 2 times every day tizanidine 2018-10 2020- No 1{table Q6H take 1 A ccessH 4 mg tablet 0- 02-06 t} tablet by [facility] 00:00: 00:00 oral route 00 :00 every 6 - 8 hours as needed not to exceed 3 doses in 24 hours butalbital- 2018-10 2020- No 1{capsu Q4H take 1 - 2 [facility] acetaminoph 0-06 17-06 le} capsule by [facility] en-caffeine 00:00: 00:00 oral route 50 mg-325 00 :00 every 4 mg-40 mg hours as capsule needed not to exceed 6 capsules per 24hrs gabapentin 2018-10 2020- No 3{capsu Q8H take 3 A ccessH 300 mg 0-06 17-06 le} capsule by [facility] capsule 00:00: 00:00 oral route 00 :00 3 times every day meloxicam 2018-10 2020- No 2{table QD take 2 Ac cess[facility] 7.5 mg 0- 02-06 t} tablet by [facility] tablet 00:00: 00:00 oral route 00 :00 every day as needed ProAir HFA 2018-10 2020- No 1{puff} Q4H inhale 1 [facility] 90 0-09 02-06 puff by [facility] mcg/actuati 00:00: 00:00 inhalation on aerosol 00 :00 route inhaler every 4 hours as needed sertraline 2018-10 2020- No 1{table Q12H take 1 A ccessH 100 mg 0-09 02-06 t} tablet by [facility] tablet 00:00: 00:00 oral route 00 :00 2 times every day tizanidine 2018-10 2020- No 1{table Q6H take 1 A ccessH 4 mg tablet 0- 02-06 t} tablet by [facility] 00:00: 00:00 oral route 00 :00 every 6 - 8 hours as needed not to exceed 3 doses in 24 hours butalbital- 2018-10 2020- No 1{capsu Q4H take 1 - 2 [facility] acetaminoph 0-09 02-06 le} capsule by [facility] en-caffeine 00:00: 00:00 oral route 50 mg-325 00 :00 every 4 mg-40 mg hours as capsule needed not to exceed 6 capsules per 24hrs gabapentin 2018-10 2020- No 3{capsu Q8H take 3 A ccessH 300 mg 0-09 02-06 le} capsule by [facility] capsule 00:00: 00:00 oral route 00 :00 3 times every day meloxicam 2018-10 2020- No 2{table QD take 2 Ac cess[facility] 7.5 mg 0-06 17-06 t} tablet by [facility] tablet 00:00: 00:00 oral route 00 :00 every day as needed ProAir HFA 2018-10 2020- No 1{puff} Q4H inhale 1 [facility] 90 0-06 17-06 puff by [facility] mcg/actuati 00:00: 00:00 inhalation on aerosol 00 :00 route inhaler every 4 hours as needed sertraline 2018-10 2020- No 1{table Q12H take 1 A ccessH 100 mg 0- 02-06 t} tablet by [facility] tablet 00:00: 00:00 oral route 00 :00 2 times every day tizanidine 2018-10 2020- No 1{table Q6H take 1 A ccessH 4 mg tablet 0- 02-06 t} tablet by [facility] 00:00: 00:00 oral route 00 :00 every 6 - 8 hours as needed not to exceed 3 doses in 24 hours butalbital- 2018-10 2020- No 1{capsu Q4H take 1 - 2 [facility] acetaminoph 0-09 02-06 le} capsule by e [facility] en-caffeine 00:00: 00:00 oral route 50 mg-325 00 :00 every 4 mg-40 mg hours as capsule needed not to exceed 6 capsules per 24hrs gabapentin 2018-10 2020- No 3{capsu Q8H take 3 A ccessH 300 mg 0-09 02-06 le} capsule by [facility] capsule 00:00: 00:00 oral route 00 :00 3 times every day meloxicam 2018-10 2020- No 2{table QD take 2 Ac cess[facility] 7.5 mg 0-09 02-06 t} tablet by [facility] tablet 00:00: 00:00 oral route 00 :00 every day as needed ProAir HFA 2018-10 2020- No 1{puff} Q4H inhale 1 [facility] 90 0-09 02-06 puff by [facility] mcg/actuati 00:00: 00:00 inhalation on aerosol 00 :00 route inhaler every 4 hours as needed sertraline 2018-10 2020- No 1{table Q12H take 1 A ccessH 100 mg 0- 02-06 t} tablet by [facility] tablet 00:00: 00:00 oral route 00 :00 2 times every day tizanidine 2018-10 2020- No 1{table Q6H take 1 A ccessH 4 mg tablet 0- 02-06 t} tablet by [facility] 00:00: 00:00 oral route 00 :00 every 6 - 8 hours as needed not to exceed 3 doses in 24 hours butalbital- 2018-10 2020- No 1{capsu Q4H take 1 - 2 [facility] acetaminoph 0- 02-06 le} capsule by e [facility] en-caffeine 00:00: 00:00 oral route 50 mg-325 00 :00 every 4 mg-40 mg hours as capsule needed not to exceed 6 capsules per 24hrs gabapentin 2018-10 2020- No 3{capsu Q8H take 3 A ccessH 300 mg 0- 02-06 le} capsule by [facility] capsule 00:00: 00:00 oral route 00 :00 3 times every day meloxicam 2018-10 2020- No 2{table QD take 2 Ac cess[facility] 7.5 mg 0-09 02-06 t} tablet by [facility] tablet 00:00: 00:00 oral route 00 :00 every day as needed ProAir HFA 2018-10 2020- No 1{puff} Q4H inhale 1 [facility] 90 0-09 02-06 puff by [facility] mcg/actuati 00:00: 00:00 inhalation on aerosol 00 :00 route inhaler every 4 hours as needed sertraline 2018-10 2020- No 1{table Q12H take 1 A ccessH 100 mg 0-09 02-06 t} tablet by [facility] tablet 00:00: 00:00 oral route 00 :00 2 times every day tizanidine 2018-10 2020- No 1{table Q6H take 1 A ccessH 4 mg tablet 0-09 02-06 t} tablet by [facility] 00:00: 00:00 oral route 00 :00 every 6 - 8 hours as needed not to exceed 3 doses in 24 hours butalbital- 2018-10 2020- No 1{capsu Q4H take 1 - 2 [facility] acetaminoph 0- 02-06 le} capsule by e [facility] en-caffeine 00:00: 00:00 oral route 50 mg-325 00 :00 every 4 mg-40 mg hours as capsule needed not to exceed 6 capsules per 24hrs gabapentin 2018-10 2020- No 3{capsu Q8H take 3 A ccessH 300 mg 0-06 17-06 le} capsule by [facility] capsule 00:00: 00:00 oral route 00 :00 3 times every day meloxicam 2018-10 2020- No 2{table QD take 2 Ac cessH 7.5 mg 0-06 17-06 t} tablet by ealth tablet 00:00: 00:00 oral route 00 :00 every day as needed ProAir HFA 2018-10 2020- No 1{puff} Q4H inhale 1 AccessH 90 0- 02-06 puff by ealth mcg/actuati 00:00: 00:00 inhalation on aerosol 00 :00 route inhaler every 4 hours as needed sertraline 2018-10 2020- No 1{table Q12H take 1 A ccessH 100 mg 0-09 02-06 t} tablet by ealth tablet 00:00: 00:00 oral route 00 :00 2 times every day tizanidine 2018-10 2020- No 1{table Q6H take 1 A ccessH 4 mg tablet 0-09 02-06 t} tablet by ea lth 00:00: 00:00 oral route 00 :00 every 6 - 8 hours as needed not to exceed 3 doses in 24 hours butalbital- 2018-10 2020- No 1{capsu Q4H take 1 - 2 [facility] acetaminoph 0- 02-06 le} capsule by e alth en-caffeine 00:00: 00:00 oral route 50 mg-325 00 :00 every 4 mg-40 mg hours as capsule needed not to exceed 6 capsules per 24hrs gabapentin 2018-10 2020- No 3{capsu Q8H take 3 A ccessH 300 mg 0- 02-06 le} capsule by [facility] capsule 00:00: 00:00 oral route 00 :00 3 times every day meloxicam 2018-10 2020- No 2{table QD take 2 Ac cessH 7.5 mg 0- t} tablet by [facility] tablet 00:00: 00:00 oral route 00 :00 every day as needed ProAir HFA 2018-10 2020- No 1{puff} Q4H inhale 1 [facility] 90 0- puff by [facility]alth mcg/actuati 00:00: 00:00 inhalation on aerosol 00 :00 route inhaler every 4 hours as needed sertraline 2018-10 2020- No 1{table Q12H take 1 A ccessH 100 mg 0-06 17- t} tablet by [facility] tablet 00:00: 00:00 oral route 00 :00 2 times every day tizanidine 2018-10 2020- No 1{table Q6H take 1 A ccessH 4 mg tablet 0- t} tablet by ea lth 00:00: 00:00 oral route 00 :00 every 6 - 8 hours as needed not to exceed 3 doses in 24 hours Klonopin 1 2018-10 2019- No 1{table Q8H take 1 A ccessH mg tablet 0-11 t} tablet by ealt h 00:00: 00:00 oral route 00 :00 3 times every day Klonopin 1 2018-10 2019- No 1{table Q8H take 1 A ccessH mg tablet 0- 10-11 t} tablet by ealt h 00:00: 00:00 oral route 00 :00 3 times every day Klonopin 1 2018-10 2019- No 1{table Q8H take 1 A ccessH mg tablet 0- 10-11 t} tablet by [facility]alt h 00:00: 00:00 oral route 00 :00 3 times every day Klonopin 1 2018-10 2019- No 1{table Q8H take 1 A ccessH mg tablet 0-09 10-11 t} tablet by ealt h 00:00: 00:00 oral route 00 :00 3 times every day Klonopin 1 2018- 2019- No 1{table Q8H take 1 A ccessH mg tablet 0-09 10-11 t} tablet by ealt h 00:00: 00:00 oral route 00 :00 3 times every day Klonopin 1 2018- 2019- No 1{table Q8H take 1 A ccessH mg tablet 0-09 10-11 t} tablet by ealt h 00:00: 00:00 oral route 00 :00 3 times every day Klonopin 1 2018- 2019- No 1{table Q8H take 1 A ccessH mg tablet 0-09 10-11 t} tablet by ealt h 00:00: 00:00 oral route 00 :00 3 times every day Klonopin 1 2018- 2019- No 1{table Q8H take 1 A ccessH mg tablet 0-09 10-11 t} tablet by ealt h 00:00: 00:00 oral route 00 :00 3 times every day Klonopin 1 2018- 2019- No 1{table Q8H take 1 A ccessH mg tablet 0-09 10-11 t} tablet by ealt h 00:00: 00:00 oral route 00 :00 3 times every day Klonopin 1 2018- 2019- No 1{table Q8H take 1 A ccessH mg tablet 0-09 10-11 t} tablet by ealt h 00:00: 00:00 oral route 00 :00 3 times every day Klonopin 1 2019- 2019- No 1{table Q8H take 1 A ccessH mg tablet 0-09 10-11 t} tablet by ealt h 00:00: 00:00 oral route 00 :00 3 times every day Klonopin 1 2019- 2019- No 1{table Q8H take 1 A ccessH mg tablet 0-09 10-11 t} tablet by ealt h 00:00: 00:00 oral route 00 :00 3 times every day Klonopin 1 2018- 2019- No 1{table Q8H take 1 A ccessH mg tablet 0-09 10-11 t} tablet by [facility]alt h 00:00: 00:00 oral route 00 :00 3 times every day Klonopin 1 2019- 2019- No 1{table Q8H take 1 A ccessH mg tablet 0-09 10-11 t} tablet by [facility]alt h 00:00: 00:00 oral route 00 :00 3 times every day Klonopin 1 2019- 2019- No 1{table Q8H take 1 A ccessH mg tablet 0-09 10-11 t} tablet by [facility]alt h 00:00: 00:00 oral route 00 :00 3 times every day Klonopin 1 2019- 2019- No 1{table Q8H take 1 A ccessH mg tablet 0-09 10-11 t} tablet by [facility]alt h 00:00: 00:00 oral route 00 :00 3 times every day Klonopin 1 2019- 2019- No 1{table Q8H take 1 A ccessH mg tablet 0-09 10-11 t} tablet by [facility] h 00:00: 00:00 oral route 00 :00 3 times every day Klonopin 1 2019- 2019- No 1{table Q8H take 1 A ccessH mg tablet 0-09 10-11 t} tablet by [facility]alt h 00:00: 00:00 oral route 00 :00 3 times every day Klonopin 1 2019- 2019- No 1{table Q8H take 1 A ccessH mg tablet 0-09 10-11 t} tablet by [facility] h 00:00: 00:00 oral route 00 :00 3 times every day Klonopin 1 2019- 2019- No 1{table Q8H take 1 A ccessH mg tablet 0-09 10-11 t} tablet by [facility]alt h 00:00: 00:00 oral route 00 :00 3 times every day Klonopin 1 2019- 2019- No 1{table Q8H take 1 A ccessH mg tablet 0-09 10-11 t} tablet by ealt h 00:00: 00:00 oral route 00 :00 3 times every day Klonopin 1 2019- 2019- No 1{table Q8H take 1 A ccessH mg tablet 0-09 10-11 t} tablet by ealt h 00:00: 00:00 oral route 00 :00 3 times every day Klonopin 1 2019- 2019- No 1{table Q8H take 1 A ccessH mg tablet 0-09 10-11 t} tablet by ealt h 00:00: 00:00 oral route 00 :00 3 times every day Klonopin 1 2018- 2019- No 1{table Q8H take 1 A ccessH mg tablet 0-09 10-11 t} tablet by ealt h 00:00: 00:00 oral route 00 :00 3 times every day Klonopin 1 2018- 2019- No 1{table Q8H take 1 A ccessH mg tablet 0-09 10-11 t} tablet by [facility]alt h 00:00: 00:00 oral route 00 :00 3 times every day Klonopin 1 2018- 2019- No 1{table Q8H take 1 A ccessH mg tablet 0-09 10-11 t} tablet by [facility]alt h 00:00: 00:00 oral route 00 :00 3 times every day Klonopin 1 2018- 2019- No 1{table Q8H take 1 A ccessH mg tablet 0-09 10-11 t} tablet by [facility]alt h 00:00: 00:00 oral route 00 :00 3 times every day Klonopin 1 2018- 2019- No 1{table Q8H take 1 A ccessH mg tablet 0-09 10-11 t} tablet by [facility]alt h 00:00: 00:00 oral route 00 :00 3 times every day Klonopin 1 2018- 2019- No 1{table Q8H take 1 A ccessH mg tablet 0-09 10-11 t} tablet by [facility]alt h 00:00: 00:00 oral route 00 :00 3 times every day Klonopin 1 2018- 2019- No 1{table Q8H take 1 A ccessH mg tablet 0-09 10-11 t} tablet by ealt h 00:00: 00:00 oral route 00 :00 3 times every day Klonopin 1 2019- 2019- No 1{table Q8H take 1 A ccessH mg tablet 0-09 10-11 t} tablet by ealt h 00:00: 00:00 oral route 00 :00 3 times every day Klonopin 1 2018- 2019- No 1{table Q8H take 1 A ccessH mg tablet 0-09 10-11 t} tablet by [facility]alt h 00:00: 00:00 oral route 00 :00 3 times every day Klonopin 1 2018- 2019- No 1{table Q8H take 1 A ccessH mg tablet 0-09 10-11 t} tablet by ealt h 00:00: 00:00 oral route 00 :00 3 times every day Klonopin 1 2018- 2019- No 1{table Q8H take 1 A ccessH mg tablet 0-09 10-11 t} tablet by ealt h 00:00: 00:00 oral route 00 :00 3 times every day Klonopin 1 2018- 2019- No 1{table Q8H take 1 A ccessH mg tablet 0-09 10-11 t} tablet by [facility]alt h 00:00: 00:00 oral route 00 :00 3 times every day Klonopin 1 2018- 2019- No 1{table Q8H take 1 A ccessH mg tablet 0-09 10-11 t} tablet by ealt h 00:00: 00:00 oral route 00 :00 3 times every day Klonopin 1 2018- 2019- No 1{table Q8H take 1 A ccessH mg tablet 0-09 10-11 t} tablet by ealt h 00:00: 00:00 oral route 00 :00 3 times every day Klonopin 1 2018- 2019- No 1{table Q8H take 1 A ccessH mg tablet 0-09 10-11 t} tablet by ealt h 00:00: 00:00 oral route 00 :00 3 times every day Ciprofloxac Ciprofloxac 2018-0 Yes JORGE Q0.5D TAKE 1 UT in HCl - in HCl - 7-18 DERESKA TABLET Ph ysici 500 MG Oral 500 MG Oral 00:00: M.D. TWICE ans Tablet Tablet 00 DAILY. Uribel 118 Uribel 118 2018-0 Yes JORGE 1 Q6H TAKE 1 UT MG Oral MG Oral 7-18 DERESKA CAPSULE Phy sici Capsule Capsule 00:00: M.D. EVERY 6 ans 00 HOURS PRN pain Nitrofurant Nitrofurant 2017-0 Yes JORGE TAKE ONE UT oin Monohyd oin Monohyd 7-06 DERESKA (1) Physici Macro 100 Macro 100 00:00: M.D. CAPSULE(S) ans MG Oral MG Oral 00 BY MOUTH Capsule Capsule AT BEDTIME. Colace 100 Colace 100 Yes JORGE 1 po bid UT MG Oral MG Oral 5-31 DERESKA Physic i Capsule Capsule 00:00: M.D. ans 00 Ustell 120 Ustell 120 Yes JORGE TAKE 1 UT MG Oral MG Oral 5-31 DERESKA CAPSULE BY Physici Capsule Capsule 00:00: M.D. MOUTH ans 00 EVERY 6 HOURS NEEDED FOR PAIN sertraline 2016-10 Yes TK 2 TS PO M [facility]i (ZOLOFT) 2-[address] 100 MG 00:00: [facility] tablet 00 l sertraline 2016-10 Yes TK 2 TS PO M ethodi (ZOLOFT) 2-[address] 100 MG 00:00: [facility] tablet 00 l TiZANidine 2016-10 Yes 4mg [id number] Take 4 mg [facility] (ZANAFLEX) 1-21 [id number] [address] mouth [address] 4 MG 00:00: 3D (three) [facility]osp[facility] capsule 00 times a l day. TiZANidine 2016-10 Yes 4mg [id number] Take 4 mg [facility] (ZANAFLEX) 1-[address] [id number] mouth [address] 4 MG 00:00: 3D (three) [facility] capsule 00 times a l day. gabapentin 2016-10 Yes [facility] (NEURONTIN) 1-19 st 300 mg 00:00: [facility] capsule 00 l gabapentin 2016-10 Yes [facility] (NEURONTIN) [facility]-19 [facility] 300 mg 00:00: [facility] capsule 00 l temazepam 2016-10 Yes TK ONE C [facility] (RESTORIL) 1-[address] 30 mg 00:00: EVENING [facility] capsule 00 l temazepam 2016-10 Yes TK ONE C [facility] (RESTORIL) 1-[address] 30 mg 00:00: EVENING [facility] capsule 00 l 24 HR 2013-10 Yes 100 mg = 1 Memori a tramadol 0-25 tab, PO, l hydrochlori 21:12: Q6H, # 30 H ermann de 100 MG 00 tab, 0 Extended Refill(s) Release Tablet 24 HR 2013-10 Yes 100 mg = 1 Memori a tramadol 0-25 tab, PO, l hydrochlori 21:12: Q6H, # 30 H ermann de 100 MG 00 tab, 0 Extended Refill(s) Release Tablet PlasmaLyte 2013-10 No 1,000 mL, Me moria A PH-7.4 0-25 Rate: 75 l 1,000 mL 07:07: ml/hr, [place] 00 Infuse over: 13.3 hr, Route: IV, Dosing Weight 107.301 kg, Total Volume: 1,000, Start date: 08/09/14 2:07:00, Stop date: 09/07/14 22:29:00 PlasmaLyte 2013-10 No 1,000 mL, Me moria A PH-7.4 0-25 Rate: 75 l 1,000 mL 07:07: ml/hr, [place] 00 Infuse over: 13.3 hr, Route: IV, Dosing Weight 107.301 kg, Total Volume: 1,000, Start date: 08/09/14 2:07:00, Stop date: 09/07/14 22:29:00 Clonazepam 2013-10 Yes 2 mg = 1 Mem oria 2 MG Oral 0-25 tab, PO, l Tablet 06:18: Bedtime, 0 Smita nn [Klonopin] 00 Refill(s) amitriptyli 2013-10 Yes 100 mg = 1 Memoria ne 100 mg 0-25 tab, PO, l oral tablet 06:18: Bedtime, # [place] 00 30 tab, 0 Refill(s) Clonazepam 2013-10 Yes 2 mg = 1 Mem oria 2 MG Oral 0-25 tab, PO, l Tablet 06:18: Bedtime, 0 Smita nn [Klonopin] 00 Refill(s) amitriptyli 2013-10 Yes 100 mg = 1 Memoria ne 100 mg 0-25 tab, PO, l oral tablet 06:18: Bedtime, # [place] 00 30 tab, 0 Refill(s) Lovenox 2013-10 No Notes: Memoria 0-25 (Same as: l 05:18: Lovenox) Luis Lovenox 2013-10 No Notes: [facility] 0-25 (Same as: l 05:18: Lovenox) heparin, 2013-10 No Notes: [facility] porcine 0-25 porcine l 05:00: heparin Enoxaparin 2013-10 No 30 mg, Memor ia 0-25 Route: l 05:00: SUB-Q, Luis 00 [id number], Dosing Weight 104.545, kg, Start date: 08/09/14 0:00:00, Duration: 30 day, Stop date: 09/07/14 12:00:00 heparin, 2013-10 No Notes: [facility] porcine 0-25 porcine l 05:00: heparin [place] Enoxaparin 2013-10 No 30 mg, Memor ia 0-25 Route: l 05:00: SUB-Q, Luis 00 [id number], Dosing Weight 104.545, kg, Start date: 08/09/14 0:00:00, Duration: 30 day, Stop date: 09/07/14 12:00:00 Morphine 2013-10 No 4 mg, Memoria 0-25 Route: l 04:42: IVP, Drug Luis 00 form: INJ, ONCE, Dosing Weight 104.545, kg, Priority: STAT, Start date: 08/08/14 23:42:00, Stop date: 08/08/14 23:42:00 Morphine 2013-10 No 4 mg, Memoria 0-25 Route: l 04:42: IVP, Drug [place] 00 form: INJ, ONCE, Dosing Weight 104.545, kg, Priority: STAT, Start date: 08/08/14 23:42:00, Stop date: 08/08/14 23:42:00 Acetaminoph 2013-10 No Notes: Kyle mattie en 325 MG / 0-25 (Same as: l Hydrocodone 04:22: Emmalena Smita nn Bitartrate 00 325/5) Do 5 MG Oral not exceed Tablet 4gm/day of [Emmalena acetaminop 5/325] hen. Acetaminoph 2013-10 No Notes: Kyle mattie en 325 MG / 0-25 (Same as: l Hydrocodone 04:22: Emmalena Smita nn Bitartrate 00 325/5) Do 5 MG Oral not exceed Tablet 4gm/day of [Emmalena acetaminop 5/325] hen. Ondansetron 2013-10 No Notes: Kyle mattie 0-25 (Same as: l 04:18: Zofran) [place] 00 Bisacodyl 2013-10 No Notes: Memori a 0-25 (Same As: l 04:18: Dulcolax, [place] 00 Correctol) (Do Not Crush) "Do Not Crush" Diphenhydra 2013-10 No Notes: Kyle mattie mine 0-25 (Same as: l 04:18: Benadryl) Ondansetron 2013-10 No Notes: Kyle mattie 0-25 (Same as: l 04:18: Zofran) Bisacodyl 2013-10 No Notes: Memori a 0-25 (Same As: l 04:18: Dulcolax, [place] 00 Correctol) (Do Not Crush) "Do Not Crush" Diphenhydra 2013-10 No Notes: Kyle mattie mine 0-25 (Same as: l 04:18: Benadryl) PlasmaLyte 2013-10 No 1,000 mL, Me moria A PH-7.4 0-25 Rate: 150 l 1,000 mL 02:31: ml/hr, Luis 00 Infuse over: 6.7 hr, Route: IV, Dosing Weight 104.545 kg, Total Volume: 1,000, Start date: 08/08/14 21:31:00, Duration: 30 day, Stop date: 09/07/14 21:30:00 PlasmaLyte 2013-10 No 1,000 mL, Me moria A PH-7.4 0-25 Rate: 150 l 1,000 mL 02:31: ml/hr, [place] 00 Infuse over: 6.7 hr, Route: IV, Dosing Weight 104.545 kg, Total Volume: 1,000, Start date: 08/08/14 21:31:00, Duration: 30 day, Stop date: 09/07/14 21:30:00 Zofran 2013-10 No Notes: Memoria 0-25 (Same as: l :: Zofran) Morphine 2013-10 No 10 mg, Memoria 0-25 Route: l :: IVP, Drug form: INJ, ONCE, kg, Priority: STAT, Start date: 08/08/14 20:11:00, Stop date: 08/08/14 20:11:00 Zofran 2013-10 No Notes: Memoria 0-25 (Same as: l 01:11: Zofran) Morphine 2013-10 No 10 mg, Memoria 0-25 Route: l 01:11: IVP, Drug form: INJ, ONCE, kg, Priority: STAT, Start date: 08/08/14 20:11:00, Stop date: 08/08/14 20:11:00 iodixanol 2013-10 No Special [facility] ia 0-25 Instructio l 01:09: ns: Dose = [place] 00 2.2ml/kg, Max dose = 100ml -- "To be infused by Radiology Staff ONLY" iodixanol 2013-10 No Special Mem[facility] ia 0-25 Instructio l 01:09: ns: Dose = [place] 00 2.2ml/kg, Max dose = 100ml -- "To be infused by Radiology Staff ONLY" Saline 2013-10 No Notes: Memoria Flush 0.9% 0-25 (Same as: l 01:02: BD Posiflush) Saline 2013-10 No Notes: [facility] Flush 0.9% 0-25 (Same as: l 01:02: BD Posiflush) Klonopin 2013-10 No Notes: Memoria 0-24 (Same As: l 06:51: KlonoPIN) Klonopin 2013-10 No Notes: Memoria 0-24 (Same As: l 06:51: KlonoPIN) Amitriptyli 2013-10 No Notes: Kyle mattie ne 0-24 (Same as: l 06:50: Elavil) Amitriptyli 2013-10 No Notes: Kyle mattie ne 0-24 (Same as: l 06:50: Elavil) Zoloft 100 Zoloft 100 Yes UT MG Oral MG Oral Physici Tablet Tablet ans Gabapentin Gabapentin Yes UT 300 MG Oral 300 MG Oral P hysici Capsule Capsule ans Temazepam Temazepam Yes UT CAPS CAPS Physici ans TiZANidine TiZANidine Yes UT HCl - 2 MG HCl - 2 MG Phy sici Oral Tablet Oral Tablet a ns gabapentin 2018- No 3{capsu Q8H take 3 Acc essH 300 mg 10-09 le} capsule by [facility]alth capsule 00:00 oral route :00 3 times every day sertraline 2019- No 1{table Q12H take 1 Acc essH 100 mg 10-09 t} tablet by [facility]alth tablet 00:00 oral route :00 2 times every day meloxicam 2019- No 2{table QD take 2 Acce ssH 7.5 mg 10-09 t} tablet by ealth tablet 00:00 oral route :00 every day as needed tizanidine 2019- No 1{table Q6H take 1 Acc essH 4 mg tablet 10-09 t} tablet by ea lth 00:00 oral route :00 every 6 - 8 hours as needed not to exceed 3 doses in 24 hours butalbital- 2019- No 1{capsu Q4H take 1 - 2 [facility] acetaminoph 10- le} capsule by e alth en-caffeine 00:00 oral route 50 mg-325 :00 every 4 mg-40 mg hours as capsule needed not to exceed 6 capsules per 24hrs ProAir HFA 2019- No 1{puff} Q4H inhale 1 A ccessH 90 07-24 puff by ealt mcg/actuati 00:00 inhalation on aerosol :00 route inhaler every 4 hours as needed Klonopin 1 2019- No 1{table Q8H take 1 Acc essH mg tablet - t} tablet by ealt h 00:00 oral route :00 3 times every day gabapentin 2019- No 3{capsu Q8H take 3 Acc essH 300 mg 07-24 le} capsule by [facility]alth capsule 00:00 oral route :00 3 times every day sertraline 2019- No 1{table Q12H take 1 Acc essH 100 mg 10-09 t} tablet by ealth tablet 00:00 oral route :00 2 times every day meloxicam 2019- No 2{table QD take 2 Acce ssH 7.5 mg 10-09 t} tablet by ealth tablet 00:00 oral route :00 every day as needed tizanidine 2019- No 1{table Q6H take 1 Acc essH 4 mg tablet 10-09 t} tablet by ea lth 00:00 oral route :00 every 6 - 8 hours as needed not to exceed 3 doses in 24 hours butalbital- 2019- No 1{capsu Q4H take 1 - 2 [facility] acetaminoph 10- le} capsule by e alth en-caffeine 00:00 oral route 50 mg-325 :00 every 4 mg-40 mg hours as capsule needed not to exceed 6 capsules per 24hrs ProAir HFA 2019- No 1{puff} Q4H inhale 1 A ccessH 90 10-09 puff by ealth mcg/actuati 00:00 inhalation on aerosol :00 route inhaler every 4 hours as needed Klonopin 1 2019- No 1{table Q8H take 1 Acc essH mg tablet 07-24 t} tablet by ealt h 00:00 oral route :00 3 times every day gabapentin 2019- No 3{capsu Q8H take 3 Acc essH 300 mg 07-24 le} capsule by ealth capsule 00:00 oral route :00 3 times every day sertraline 2019- No 1{table Q12H take 1 Acc essH 100 mg 07-24 t} tablet by ealth tablet 00:00 oral route :00 2 times every day meloxicam 2019- No 2{table QD take 2 Acce ssH 7.5 mg 07-24 t} tablet by ealth tablet 00:00 oral route :00 every day as needed tizanidine 2019- No 1{table Q6H take 1 Acc essH 4 mg tablet 07-24 t} tablet by ea lth 00:00 oral route :00 every 6 - 8 hours as needed not to exceed 3 doses in 24 hours butalbital- 2019- No 1{capsu Q4H take 1 - 2 [facility] acetaminoph 07-24 le} capsule by e alth en-caffeine 00:00 oral route 50 mg-325 :00 every 4 mg-40 mg hours as capsule needed not to exceed 6 capsules per 24hrs ProAir HFA 2019- No 1{puff} Q4H inhale 1 A ccessH 90 10-09 puff by ealth mcg/actuati 00:00 inhalation on aerosol :00 route inhaler every 4 hours as needed Klonopin 1 2019- No 1{table Q8H take 1 Acc essH mg tablet 07-24 t} tablet by ealt h 00:00 oral route :00 3 times every day gabapentin 2019- No 3{capsu Q8H take 3 Acc essH 300 mg 07-24 le} capsule by ealth capsule 00:00 oral route :00 3 times every day sertraline 2019- No 1{table Q12H take 1 Acc essH 100 mg 10-09 t} tablet by ealth tablet 00:00 oral route :00 2 times every day meloxicam 2019- No 2{table QD take 2 Acce ssH 7.5 mg 10-09 t} tablet by ealth tablet 00:00 oral route :00 every day as needed tizanidine 2019- No 1{table Q6H take 1 Acc essH 4 mg tablet 10-09 t} tablet by ea lth 00:00 oral route :00 every 6 - 8 hours as needed not to exceed 3 doses in 24 hours butalbital- 2019- No 1{capsu Q4H take 1 - 2 [facility] acetaminoph 10 le} capsule by e alth en-caffeine 00:00 oral route 50 mg-325 :00 every 4 mg-40 mg hours as capsule needed not to exceed 6 capsules per 24hrs ProAir HFA 2019- No 1{puff} Q4H inhale 1 A ccessH 90 07-24 puff by ealt mcg/actuati 00:00 inhalation on aerosol :00 route inhaler every 4 hours as needed Klonopin 1 2019- No 1{table Q8H take 1 Acc essH mg tablet - t} tablet by ealt h 00:00 oral route :00 3 times every day gabapentin 2019- No 3{capsu Q8H take 3 Acc essH 300 mg 07-24 le} capsule by ealth capsule 00:00 oral route :00 3 times every day sertraline 2019- No 1{table Q12H take 1 Acc essH 100 mg 10-09 t} tablet by ealth tablet 00:00 oral route :00 2 times every day meloxicam 2019- No 2{table QD take 2 Acce ssH 7.5 mg 10-09 t} tablet by ealth tablet 00:00 oral route :00 every day as needed tizanidine 2019- No 1{table Q6H take 1 Acc essH 4 mg tablet 10-09 t} tablet by ea lth 00:00 oral route :00 every 6 - 8 hours as needed not to exceed 3 doses in 24 hours butalbital- 2019- No 1{capsu Q4H take 1 - 2 [facility] acetaminoph 10- le} capsule by e alth en-caffeine 00:00 oral route 50 mg-325 :00 every 4 mg-40 mg hours as capsule needed not to exceed 6 capsules per 24hrs ProAir HFA 2019- No 1{puff} Q4H inhale 1 A ccessH 90 10-09 puff by ealth mcg/actuati 00:00 inhalation on aerosol :00 route inhaler every 4 hours as needed Klonopin 1 2019- No 1{table Q8H take 1 Acc essH mg tablet 07-24 t} tablet by ealt h 00:00 oral route :00 3 times every day gabapentin 2019- No 3{capsu Q8H take 3 Acc essH 300 mg 07-24 le} capsule by ealth capsule 00:00 oral route :00 3 times every day sertraline 2019- No 1{table Q12H take 1 Acc essH 100 mg 07-24 t} tablet by ealth tablet 00:00 oral route :00 2 times every day meloxicam 2019- No 2{table QD take 2 Acce ssH 7.5 mg 07-24 t} tablet by ealth tablet 00:00 oral route :00 every day as needed tizanidine 2019- No 1{table Q6H take 1 Acc essH 4 mg tablet 07-24 t} tablet by ea lth 00:00 oral route :00 every 6 - 8 hours as needed not to exceed 3 doses in 24 hours butalbital- 2019- No 1{capsu Q4H take 1 - 2 [facility] acetaminoph 07-24 le} capsule by e alth en-caffeine 00:00 oral route 50 mg-325 :00 every 4 mg-40 mg hours as capsule needed not to exceed 6 capsules per 24hrs ProAir HFA 2019- No 1{puff} Q4H inhale 1 A ccessH 90 10-09 puff by ealth mcg/actuati 00:00 inhalation on aerosol :00 route inhaler every 4 hours as needed Klonopin 1 2019- No 1{table Q8H take 1 Acc essH mg tablet 07-24 t} tablet by ealt h 00:00 oral route :00 3 times every day gabapentin 2019- No 3{capsu Q8H take 3 Acc essH 300 mg 07-24 le} capsule by ealth capsule 00:00 oral route :00 3 times every day sertraline 2019- No 1{table Q12H take 1 Acc essH 100 mg 10 t} tablet by ealth tablet 00:00 oral route :00 2 times every day meloxicam 2019- No 2{table QD take 2 Acce ssH 7.5 mg 10- t} tablet by ealth tablet 00:00 oral route :00 every day as needed tizanidine 2019- No 1{table Q6H take 1 Acc essH 4 mg tablet 10- t} tablet by ea lth 00:00 oral route :00 every 6 - 8 hours as needed not to exceed 3 doses in 24 hours meloxicam 2019- No 2{table QD take 2 Acce ssH 7.5 mg 10- t} tablet by ealth tablet 00:00 oral route :00 every day as needed sertraline 2019- No 1{table Q12H take 1 Acc essH 100 mg 10 t} tablet by ealth tablet 00:00 oral route :00 2 times every day gabapentin 2019- No 3{capsu Q8H take 3 Acc essH 300 mg 07-24 le} capsule by ealt capsule 00:00 oral route :00 3 times every day Klonopin 1 2019- No 1{table Q8H take 1 Acc essH mg tablet 07-24 t} tablet by ealt h 00:00 oral route :00 3 times every day ProAir HFA 2019- No 1{puff} Q4H inhale 1 A ccessH 90 07-24 puff by ealt mcg/actuati 00:00 inhalation on aerosol :00 route inhaler every 4 hours as needed butalbital- 2019- No 1{capsu Q4H take 1 - 2 [facility] acetaminoph 07-24 le} capsule by e alth en-caffeine 00:00 oral route 50 mg-325 :00 every 4 mg-40 mg hours as capsule needed not to exceed 6 capsules per 24hrs tizanidine 2019- No 1{table Q6H take 1 Acc essH 4 mg tablet 1009 t} tablet by ea lth 00:00 oral route :00 every 6 - 8 hours as needed not to exceed 3 doses in 24 hours butalbital- 2019- No 1{capsu Q4H take 1 - 2 [facility] acetaminoph 07-24 le} capsule by e alth en-caffeine 00:00 oral route 50 mg-325 :00 every 4 mg-40 mg hours as capsule needed not to exceed 6 capsules per 24hrs ProAir HFA 2019- No 1{puff} Q4H inhale 1 A ccessH 90 10-09 puff by ealth mcg/actuati 00:00 inhalation on aerosol :00 route inhaler every 4 hours as needed Klonopin 1 2019- No 1{table Q8H take 1 Acc essH mg tablet 07-24 t} tablet by ealt h 00:00 oral route :00 3 times every day gabapentin 2019- No 3{capsu Q8H take 3 Acc essH 300 mg 07-24 le} capsule by ealth capsule 00:00 oral route :00 3 times every day sertraline 2019- No 1{table Q12H take 1 Acc essH 100 mg 07-24 t} tablet by ealth tablet 00:00 oral route :00 2 times every day meloxicam 2019- No 2{table QD take 2 Acce ssH 7.5 mg 07-24 t} tablet by ealth tablet 00:00 oral route :00 every day as needed tizanidine 2019- No 1{table Q6H take 1 Acc essH 4 mg tablet 07-24 t} tablet by ea lth 00:00 oral route :00 every 6 - 8 hours as needed not to exceed 3 doses in 24 hours butalbital- 2019- No 1{capsu Q4H take 1 - 2 [facility] acetaminoph 07-24 le} capsule by e alth en-caffeine 00:00 oral route 50 mg-325 :00 every 4 mg-40 mg hours as capsule needed not to exceed 6 capsules per 24hrs ProAir HFA 2019- No 1{puff} Q4H inhale 1 A ccessH 90 10-09 puff by ealth mcg/actuati 00:00 inhalation on aerosol :00 route inhaler every 4 hours as needed Klonopin 1 2019- No 1{table Q8H take 1 Acc essH mg tablet 07-24 t} tablet by ealt h 00:00 oral route :00 3 times every day gabapentin 2019- No 3{capsu Q8H take 3 [facility] 300 mg 07-24 le} capsule by ealth capsule 00:00 oral route :00 3 times every day sertraline 2019- No 1{table Q12H take 1 [facility] 100 mg 10-09 t} tablet by ealth tablet 00:00 oral route :00 2 times every day meloxicam 2019- No 2{table QD take 2 [facility] 7.5 mg 10-09 t} tablet by ealth tablet 00:00 oral route :00 every day as needed tizanidine 2019- No 1{table Q6H take 1 [facility] 4 mg tablet 10-09 t} tablet by ea lth 00:00 oral route :00 every 6 - 8 hours as needed not to exceed 3 doses in 24 hours butalbital- 2019- No 1{capsu Q4H take 1 - 2 [facility] acetaminoph 07-24 le} capsule by e alth en-caffeine 00:00 oral route 50 mg-325 :00 every 4 mg-40 mg hours as capsule needed not to exceed 6 capsules per 24hrs ProAir HFA 2019- No 1{puff} Q4H inhale 1 A ccessH 90 07-24 puff by ealt mcg/actuati 00:00 inhalation on aerosol :00 route inhaler every 4 hours as needed Klonopin 1 2019- No 1{table Q8H take 1 [facility] mg tablet 07-24 t} tablet by ealt h 00:00 oral route :00 3 times every day gabapentin 2019- No 3{capsu Q8H take 3 [facility] 300 mg 07-24 le} capsule by [facility] capsule 00:00 oral route :00 3 times every day sertraline 2019- No 1{table Q12H take 1 [facility] 100 mg 10-09 t} tablet by [facility] tablet 00:00 oral route :00 2 times every day meloxicam 2019- No 2{table QD take 2 [facility] 7.5 mg 10-09 t} tablet by [facility] tablet 00:00 oral route :00 every day as needed tizanidine 2019- No 1{table Q6H take 1 [facility] 4 mg tablet 10-09 t} tablet by [facility] 00:00 oral route :00 every 6 - 8 hours as needed not to exceed 3 doses in 24 hours butalbital- 2019- No 1{capsu Q4H take 1 - 2 [facility] acetaminoph 10 le} capsule by [facility] en-caffeine 00:00 oral route 50 mg-325 :00 every 4 mg-40 mg hours as capsule needed not to exceed 6 capsules per 24hrs ProAir HFA 2019- No 1{puff} Q4H inhale 1 A ccess[facility] 90 10-09 puff by [facility] mcg/actuati 00:00 inhalation on aerosol :00 route inhaler every 4 hours as needed Klonopin 1 2019- No 1{table Q8H take 1 [facility] mg tablet 07-24 t} tablet by [facility] 00:00 oral route :00 3 times every day gabapentin 2019- No 3{capsu Q8H take 3 [facility] 300 mg 07-24 le} capsule by [facility] capsule 00:00 oral route :00 3 times every day sertraline 2019- No 1{table Q12H take 1 [facility] 100 mg 07-24 t} tablet by [facility] tablet 00:00 oral route :00 2 times every day meloxicam 2019- No 2{table QD take 2 [facility] 7.5 mg 07-24 t} tablet by [facility] tablet 00:00 oral route :00 every day as needed tizanidine 2019- No 1{table Q6H take 1 [facility] 4 mg tablet 07-24 t} tablet by [facility] 00:00 oral route :00 every 6 - 8 hours as needed not to exceed 3 doses in 24 hours butalbital- 2019- No 1{capsu Q4H take 1 - 2 [facility] acetaminoph 07-24 le} capsule by e [facility] en-caffeine 00:00 oral route 50 mg-325 :00 every 4 mg-40 mg hours as capsule needed not to exceed 6 capsules per 24hrs ProAir HFA 2019- No 1{puff} Q4H inhale 1 A ccess[facility] 90 10-09 puff by [facility] mcg/actuati 00:00 inhalation on aerosol :00 route inhaler every 4 hours as needed Klonopin 1 2019- No 1{table Q8H take 1 [facility] mg tablet 07-24 t} tablet by [facility] 00:00 oral route :00 3 times every day gabapentin 2019- No 3{capsu Q8H take 3 [facility] 300 mg 07-24 le} capsule by [facility] capsule 00:00 oral route :00 3 times every day sertraline 2019- No 1{table Q12H take 1 [facility] 100 mg 10-09 t} tablet by [facility] tablet 00:00 oral route :00 2 times every day meloxicam 2019- No 2{table QD take 2 [facility] 7.5 mg 10-09 t} tablet by [facility] tablet 00:00 oral route :00 every day as needed tizanidine 2019- No 1{table Q6H take 1 [facility] 4 mg tablet 10-09 t} tablet by [facility] 00:00 oral route :00 every 6 - 8 hours as needed not to exceed 3 doses in 24 hours butalbital- 2019- No 1{capsu Q4H take 1 - 2 [facility] acetaminoph 07-24 le} capsule by [facility] en-caffeine 00:00 oral route 50 mg-325 :00 every 4 mg-40 mg hours as capsule needed not to exceed 6 capsules per 24hrs ProAir HFA 2019- No 1{puff} Q4H inhale 1 A ccess[facility] 90 07-24 puff by [facility] mcg/actuati 00:00 inhalation on aerosol :00 route inhaler every 4 hours as needed Klonopin 1 2019- No 1{table Q8H take 1 [facility] mg tablet 07-24 t} tablet by [facility] 00:00 oral route :00 3 times every day gabapentin 2019- No 3{capsu Q8H take 3 [facility] 300 mg 07-24 le} capsule by [facility] capsule 00:00 oral route :00 3 times every day sertraline 2019- No 1{table Q12H take 1 [facility] 100 mg 10-09 t} tablet by [facility] tablet 00:00 oral route :00 2 times every day meloxicam 2019- No 2{table QD take 2 [facility] 7.5 mg 10-09 t} tablet by [facility] tablet 00:00 oral route :00 every day as needed tizanidine 2019- No 1{table Q6H take 1 [facility] 4 mg tablet 10-09 t} tablet by [facility] 00:00 oral route :00 every 6 - 8 hours as needed not to exceed 3 doses in 24 hours butalbital- 2019- No 1{capsu Q4H take 1 - 2 [facility] acetaminoph 10 le} capsule by [facility] en-caffeine 00:00 oral route 50 mg-325 :00 every 4 mg-40 mg hours as capsule needed not to exceed 6 capsules per 24hrs ProAir HFA 2019- No 1{puff} Q4H inhale 1 A ccess[facility] 90 10-09 puff by [facility] mcg/actuati 00:00 inhalation on aerosol :00 route inhaler every 4 hours as needed Klonopin 1 2019- No 1{table Q8H take 1 [facility] mg tablet 07-24 t} tablet by [facility] 00:00 oral route :00 3 times every day gabapentin 2019- No 3{capsu Q8H take 3 [facility] 300 mg 07-24 le} capsule by [facility] capsule 00:00 oral route :00 3 times every day sertraline 2019- No 1{table Q12H take 1 [facility] 100 mg 07-24 t} tablet by [facility] tablet 00:00 oral route :00 2 times every day meloxicam 2019- No 2{table QD take 2 [facility] 7.5 mg 07-24 t} tablet by [facility] tablet 00:00 oral route :00 every day as needed tizanidine 2019- No 1{table Q6H take 1 [facility] 4 mg tablet 07-24 t} tablet by [facility] 00:00 oral route :00 every 6 - 8 hours as needed not to exceed 3 doses in 24 hours butalbital- 2019- No 1{capsu Q4H take 1 - 2 [facility] acetaminoph 07-24 le} capsule by [facility] en-caffeine 00:00 oral route 50 mg-325 :00 every 4 mg-40 mg hours as capsule needed not to exceed 6 capsules per 24hrs ProAir HFA 2019- No 1{puff} Q4H inhale 1 A ccess[facility] 90 10-09 puff by [facility] mcg/actuati 00:00 inhalation on aerosol :00 route inhaler every 4 hours as needed Klonopin 1 2019- No 1{table Q8H take 1 [facility] mg tablet 09 t} tablet by [facility] 00:00 oral route :00 3 times every day gabapentin 2019- No 3{capsu Q8H take 3 [facility] 300 mg 07-24 le} capsule by [facility] capsule 00:00 oral route :00 3 times every day sertraline 2019- No 1{table Q12H take 1 [facility] 100 mg 10-09 t} tablet by [facility] tablet 00:00 oral route :00 2 times every day meloxicam 2019- No 2{table QD take 2 [facility] 7.5 mg 10-09 t} tablet by [facility] tablet 00:00 oral route :00 every day as needed tizanidine 2019- No 1{table Q6H take 1 [facility] 4 mg tablet 10-09 t} tablet by [facility] 00:00 oral route :00 every 6 - 8 hours as needed not to exceed 3 doses in 24 hours butalbital- 2019- No 1{capsu Q4H take 1 - 2 [facility] acetaminoph 07-24 le} capsule by [facility] en-caffeine 00:00 oral route 50 mg-325 :00 every 4 mg-40 mg hours as capsule needed not to exceed 6 capsules per 24hrs ProAir HFA 2019- No 1{puff} Q4H inhale 1 A ccess[facility] 90 07-24 puff by [facility] mcg/actuati 00:00 inhalation on aerosol :00 route inhaler every 4 hours as needed Klonopin 1 2019- No 1{table Q8H take 1 [facility] mg tablet 07-24 t} tablet by [facility] 00:00 oral route :00 3 times every day gabapentin 2019- No 3{capsu Q8H take 3 [facility] 300 mg 07-24 le} capsule by [facility] capsule 00:00 oral route :00 3 times every day sertraline 2019- No 1{table Q12H take 1 [facility] 100 mg 10-09 t} tablet by [facility] tablet 00:00 oral route :00 2 times every day meloxicam 2019- No 2{table QD take 2 [facility] 7.5 mg 10-09 t} tablet by [facility] tablet 00:00 oral route :00 every day as needed tizanidine 2019- No 1{table Q6H take 1 [facility] 4 mg tablet 10-09 t} tablet by [facility] 00:00 oral route :00 every 6 - 8 hours as needed not to exceed 3 doses in 24 hours butalbital- 2019- No 1{capsu Q4H take 1 - 2 [facility] acetaminoph 10 le} capsule by [facility] en-caffeine 00:00 oral route 50 mg-325 :00 every 4 mg-40 mg hours as capsule needed not to exceed 6 capsules per 24hrs ProAir HFA 2019- No 1{puff} Q4H inhale 1 A ccess[facility] 90 10-09 puff by [facility] mcg/actuati 00:00 inhalation on aerosol :00 route inhaler every 4 hours as needed Klonopin 1 2019- No 1{table Q8H take 1 [facility] mg tablet 07-24 t} tablet by [facility] 00:00 oral route :00 3 times every day gabapentin 2019- No 3{capsu Q8H take 3 [facility] 300 mg 07-24 le} capsule by [facility] capsule 00:00 oral route :00 3 times every day sertraline 2019- No 1{table Q12H take 1 [facility] 100 mg 07-24 t} tablet by [facility] tablet 00:00 oral route :00 2 times every day meloxicam 2019- No 2{table QD take 2 [facility] 7.5 mg 07-24 t} tablet by [facility] tablet 00:00 oral route :00 every day as needed tizanidine 2019- No 1{table Q6H take 1 [facility] 4 mg tablet 07-24 t} tablet by [facility] 00:00 oral route :00 every 6 - 8 hours as needed not to exceed 3 doses in 24 hours butalbital- 2019- No 1{capsu Q4H take 1 - 2 [facility] acetaminoph - le} capsule by [facility] en-caffeine 00:00 oral route 50 mg-325 :00 every 4 mg-40 mg hours as capsule needed not to exceed 6 capsules per 24hrs ProAir HFA 2019- No 1{puff} Q4H inhale 1 A ccess[facility] 90 10-09 puff by [facility] mcg/actuati 00:00 inhalation on aerosol :00 route inhaler every 4 hours as needed Klonopin 1 2019- No 1{table Q8H take 1 [facility] mg tablet 1009 t} tablet by [facility] 00:00 oral route :00 3 times every day gabapentin 2019- No 3{capsu Q8H take 3 [facility] 300 mg 07-24 le} capsule by [facility] capsule 00:00 oral route :00 3 times every day sertraline 2019- No 1{table Q12H take 1 [facility] 100 mg 10-09 t} tablet by [facility] tablet 00:00 oral route :00 2 times every day meloxicam 2019- No 2{table QD take 2 [facility] 7.5 mg 10-09 t} tablet by [facility] tablet 00:00 oral route :00 every day as needed tizanidine 2019- No 1{table Q6H take 1 [facility] 4 mg tablet 10-09 t} tablet by [facility] 00:00 oral route :00 every 6 - 8 hours as needed not to exceed 3 doses in 24 hours butalbital- 2019- No 1{capsu Q4H take 1 - 2 [facility] acetaminoph 07-24 le} capsule by [facility] en-caffeine 00:00 oral route 50 mg-325 :00 every 4 mg-40 mg hours as capsule needed not to exceed 6 capsules per 24hrs ProAir HFA 2019- No 1{puff} Q4H inhale 1 A ccess[facility] 90 07-24 puff by [facility] mcg/actuati 00:00 inhalation on aerosol :00 route inhaler every 4 hours as needed Klonopin 1 2019- No 1{table Q8H take 1 [facility] mg tablet 07-24 t} tablet by [facility] 00:00 oral route :00 3 times every day gabapentin 2019- No 3{capsu Q8H take 3 [facility] 300 mg 07-24 le} capsule by [facility] capsule 00:00 oral route :00 3 times every day sertraline 2019- No 1{table Q12H take 1 [facility] 100 mg 10-09 t} tablet by [facility] tablet 00:00 oral route :00 2 times every day meloxicam 2019- No 2{table QD take 2 [facility] 7.5 mg 10-09 t} tablet by [facility] tablet 00:00 oral route :00 every day as needed tizanidine 2019- No 1{table Q6H take 1 [facility] 4 mg tablet 10-09 t} tablet by [facility] 00:00 oral route :00 every 6 - 8 hours as needed not to exceed 3 doses in 24 hours butalbital- 2019- No 1{capsu Q4H take 1 - 2 [facility] acetaminoph 10-09 le} capsule by e [facility] en-caffeine 00:00 oral route 50 mg-325 :00 every 4 mg-40 mg hours as capsule needed not to exceed 6 capsules per 24hrs ProAir HFA 2019- No 1{puff} Q4H inhale 1 A ccess[facility] 90 10-09 puff by [facility] mcg/actuati 00:00 inhalation on aerosol :00 route inhaler every 4 hours as needed Klonopin 1 2019- No 1{table Q8H take 1 [facility] mg tablet 07-24 t} tablet by [facility] 00:00 oral route :00 3 times every day gabapentin 2019- No 3{capsu Q8H take 3 [facility] 300 mg 07-24 le} capsule by [facility] capsule 00:00 oral route :00 3 times every day sertraline 2019- No 1{table Q12H take 1 [facility] 100 mg 07-24 t} tablet by [facility] tablet 00:00 oral route :00 2 times every day meloxicam 2019- No 2{table QD take 2 [facility] 7.5 mg 07-24 t} tablet by [facility] tablet 00:00 oral route :00 every day as needed tizanidine 2019- No 1{table Q6H take 1 [facility] 4 mg tablet 07-24 t} tablet by [facility] 00:00 oral route :00 every 6 - 8 hours as needed not to exceed 3 doses in 24 hours butalbital- 2019- No 1{capsu Q4H take 1 - 2 [facility] acetaminoph 07-24 le} capsule by [facility] en-caffeine 00:00 oral route 50 mg-325 :00 every 4 mg-40 mg hours as capsule needed not to exceed 6 capsules per 24hrs ProAir HFA 2019- No 1{puff} Q4H inhale 1 A ccess[facility] 90 10-09 puff by [facility] mcg/actuati 00:00 inhalation on aerosol :00 route inhaler every 4 hours as needed Klonopin 1 2019- No 1{table Q8H take 1 [facility] mg tablet 07-24 t} tablet by [facility] 00:00 oral route :00 3 times every day gabapentin 2019- No 3{capsu Q8H take 3 [facility] 300 mg 07-24 le} capsule by [facility] capsule 00:00 oral route :00 3 times every day sertraline 2019- No 1{table Q12H take 1 [facility] 100 mg 10-09 t} tablet by [facility] tablet 00:00 oral route :00 2 times every day meloxicam 2019- No 2{table QD take 2 [facility] 7.5 mg 10-09 t} tablet by [facility] tablet 00:00 oral route :00 every day as needed tizanidine 2019- No 1{table Q6H take 1 [facility] 4 mg tablet 10-09 t} tablet by [facility] 00:00 oral route :00 every 6 - 8 hours as needed not to exceed 3 doses in 24 hours butalbital- 2019- No 1{capsu Q4H take 1 - 2 [facility] acetaminoph 07-24 le} capsule by e [facility] en-caffeine 00:00 oral route 50 mg-325 :00 every 4 mg-40 mg hours as capsule needed not to exceed 6 capsules per 24hrs ProAir HFA 2019- No 1{puff} Q4H inhale 1 A ccessH 90 - puff by [facility] mcg/actuati 00:00 inhalation on aerosol :00 route inhaler every 4 hours as needed Klonopin 1 2019- No 1{table Q8H take 1 [facility] mg tablet 10 t} tablet by [facility] 00:00 oral route :00 3 times every day gabapentin 2019- No 3{capsu Q8H take 3 [facility] 300 mg 07-24 le} capsule by [facility] capsule 00:00 oral route :00 3 times every day sertraline 2019- No 1{table Q12H take 1 [facility] 100 mg 10-09 t} tablet by [facility] tablet 00:00 oral route :00 2 times every day meloxicam 2019- No 2{table QD take 2 [facility] 7.5 mg 10-09 t} tablet by [facility] tablet 00:00 oral route :00 every day as needed tizanidine 2019- No 1{table Q6H take 1 [facility] 4 mg tablet 10-09 t} tablet by [facility] 00:00 oral route :00 every 6 - 8 hours as needed not to exceed 3 doses in 24 hours butalbital- 2019- No 1{capsu Q4H take 1 - 2 [facility] acetaminoph 10 le} capsule by [facility] en-caffeine 00:00 oral route 50 mg-325 :00 every 4 mg-40 mg hours as capsule needed not to exceed 6 capsules per 24hrs ProAir HFA 2019- No 1{puff} Q4H inhale 1 A ccess[facility] 90 10-09 puff by [facility] mcg/actuati 00:00 inhalation on aerosol :00 route inhaler every 4 hours as needed Klonopin 1 2019- No 1{table Q8H take 1 [facility] mg tablet 07-24 t} tablet by [facility] 00:00 oral route :00 3 times every day gabapentin 2019- No 3{capsu Q8H take 3 [facility] 300 mg 07-24 le} capsule by [facility] capsule 00:00 oral route :00 3 times every day sertraline 2019- No 1{table Q12H take 1 [facility] 100 mg 07-24 t} tablet by [facility] tablet 00:00 oral route :00 2 times every day meloxicam 2019- No 2{table QD take 2 [facility] 7.5 mg 07-24 t} tablet by [facility] tablet 00:00 oral route :00 every day as needed tizanidine 2019- No 1{table Q6H take 1 [facility] 4 mg tablet 07-24 t} tablet by [facility] 00:00 oral route :00 every 6 - 8 hours as needed not to exceed 3 doses in 24 hours butalbital- 2019- No 1{capsu Q4H take 1 - 2 [facility] acetaminoph 07-24 le} capsule by e [facility] en-caffeine 00:00 oral route 50 mg-325 :00 every 4 mg-40 mg hours as capsule needed not to exceed 6 capsules per 24hrs ProAir HFA 2019- No 1{puff} Q4H inhale 1 A ccessH 90 10-09 puff by [facility] mcg/actuati 00:00 inhalation on aerosol :00 route inhaler every 4 hours as needed Klonopin 1 2019- No 1{table Q8H take 1 [facility] mg tablet 07-24 t} tablet by [facility] 00:00 oral route :00 3 times every day gabapentin 2019- No 3{capsu Q8H take 3 [facility] 300 mg 07-24 le} capsule by [facility] capsule 00:00 oral route :00 3 times every day sertraline 2019- No 1{table Q12H take 1 [facility] 100 mg 10-09 t} tablet by [facility] tablet 00:00 oral route :00 2 times every day meloxicam 2019- No 2{table QD take 2 [facility] 7.5 mg 10-09 t} tablet by [facility] tablet 00:00 oral route :00 every day as needed tizanidine 2019- No 1{table Q6H take 1 [facility] 4 mg tablet 10-09 t} tablet by [facility] 00:00 oral route :00 every 6 - 8 hours as needed not to exceed 3 doses in 24 hours butalbital- 2019- No 1{capsu Q4H take 1 - 2 [facility] acetaminoph 07-24 le} capsule by e [facility] en-caffeine 00:00 oral route 50 mg-325 :00 every 4 mg-40 mg hours as capsule needed not to exceed 6 capsules per 24hrs ProAir HFA 2019- No 1{puff} Q4H inhale 1 A ccessH 90 07-24 puff by [facility] mcg/actuati 00:00 inhalation on aerosol :00 route inhaler every 4 hours as needed Klonopin 1 2019- No 1{table Q8H take 1 [facility] mg tablet 07-24 t} tablet by [facility] 00:00 oral route :00 3 times every day gabapentin 2019- No 3{capsu Q8H take 3 [facility] 300 mg 07-24 le} capsule by [facility] capsule 00:00 oral route :00 3 times every day sertraline 2019- No 1{table Q12H take 1 [facility] 100 mg 10-09 t} tablet by [facility] tablet 00:00 oral route :00 2 times every day meloxicam 2019- No 2{table QD take 2 [facility] 7.5 mg 10-09 t} tablet by [facility] tablet 00:00 oral route :00 every day as needed tizanidine 2019- No 1{table Q6H take 1 [facility] 4 mg tablet 10-09 t} tablet by [facility] 00:00 oral route :00 every 6 - 8 hours as needed not to exceed 3 doses in 24 hours butalbital- 2019- No 1{capsu Q4H take 1 - 2 [facility] acetaminoph 10 le} capsule by [facility] en-caffeine 00:00 oral route 50 mg-325 :00 every 4 mg-40 mg hours as capsule needed not to exceed 6 capsules per 24hrs ProAir HFA 2019- No 1{puff} Q4H inhale 1 A ccessH 90 10-09 puff by [facility] mcg/actuati 00:00 inhalation on aerosol :00 route inhaler every 4 hours as needed Klonopin 1 2019- No 1{table Q8H take 1 [facility] mg tablet 07-24 t} tablet by [facility] 00:00 oral route :00 3 times every day gabapentin 2019- No 3{capsu Q8H take 3 [facility] 300 mg 07-24 le} capsule by [facility] capsule 00:00 oral route :00 3 times every day sertraline 2019- No 1{table Q12H take 1 [facility] 100 mg 07-24 t} tablet by [facility] tablet 00:00 oral route :00 2 times every day meloxicam 2019- No 2{table QD take 2 [facility] 7.5 mg 07-24 t} tablet by [facility] tablet 00:00 oral route :00 every day as needed tizanidine 2019- No 1{table Q6H take 1 [facility] 4 mg tablet 07-24 t} tablet by [facility] 00:00 oral route :00 every 6 - 8 hours as needed not to exceed 3 doses in 24 hours butalbital- 2019- No 1{capsu Q4H take 1 - 2 [facility] acetaminoph 07-24 le} capsule by e [facility] en-caffeine 00:00 oral route 50 mg-325 :00 every 4 mg-40 mg hours as capsule needed not to exceed 6 capsules per 24hrs ProAir HFA 2019- No 1{puff} Q4H inhale 1 A ccessH 90 10-09 puff by [facility] mcg/actuati 00:00 inhalation on aerosol :00 route inhaler every 4 hours as needed Klonopin 1 2019- No 1{table Q8H take 1 [facility] mg tablet 10-09 t} tablet by [facility] 00:00 oral route :00 3 times every day gabapentin 2019- No 3{capsu Q8H take 3 [facility] 300 mg 07-24 le} capsule by [facility] capsule 00:00 oral route :00 3 times every day sertraline 2019- No 1{table Q12H take 1 [facility] 100 mg 10-09 t} tablet by [facility] tablet 00:00 oral route :00 2 times every day meloxicam 2019- No 2{table QD take 2 [facility] 7.5 mg 10-09 t} tablet by [facility] tablet 00:00 oral route :00 every day as needed tizanidine 2019- No 1{table Q6H take 1 [facility] 4 mg tablet 10-09 t} tablet by ea l[facility] 00:00 oral route :00 every 6 - 8 hours as needed not to exceed 3 doses in 24 hours butalbital- 2019- No 1{capsu Q4H take 1 - 2 [facility] acetaminoph 07-24 le} capsule by e [facility] en-caffeine 00:00 oral route 50 mg-325 :00 every 4 mg-40 mg hours as capsule needed not to exceed 6 capsules per 24hrs ProAir HFA 2019- No 1{puff} Q4H inhale 1 A ccessH 90 07-24 puff by [facility] mcg/actuati 00:00 inhalation on aerosol :00 route inhaler every 4 hours as needed Klonopin 1 2019- No 1{table Q8H take 1 [facility] mg tablet 10 t} tablet by [facility] 00:00 oral route :00 3 times every day gabapentin 2019- No 3{capsu Q8H take 3 Acc [facility] 300 mg 07-24 le} capsule by [facility] capsule 00:00 oral route :00 3 times every day sertraline 2019- No 1{table Q12H take 1 [facility] 100 mg 10-09 t} tablet by [facility] tablet 00:00 oral route :00 2 times every day meloxicam 2019- No 2{table QD take 2 [facility] 7.5 mg 10-09 t} tablet by [facility] tablet 00:00 oral route :00 every day as needed tizanidine 2019- No 1{table Q6H take 1 [facility] 4 mg tablet 10-09 t} tablet by ea l[facility] 00:00 oral route :00 every 6 - 8 hours as needed not to exceed 3 doses in 24 hours butalbital- 2019- No 1{capsu Q4H take 1 - 2 [facility] acetaminoph 10- le} capsule by e al[facility] en-caffeine 00:00 oral route 50 mg-325 :00 every 4 mg-40 mg hours as capsule needed not to exceed 6 capsules per 24hrs ProAir HFA 2019- No 1{puff} Q4H inhale 1 A ccessH 90 10-09 puff by [facility] mcg/actuati 00:00 inhalation on aerosol :00 route inhaler every 4 hours as needed Klonopin 1 2019- No 1{table Q8H take 1 [facility] mg tablet 07-24 t} tablet by [facility] 00:00 oral route :00 3 times every day gabapentin 2019- No 3{capsu Q8H take 3 Acc [facility] 300 mg 07-24 le} capsule by [facility] capsule 00:00 oral route :00 3 times every day sertraline 2019- No 1{table Q12H take 1 [facility] 100 mg 07-24 t} tablet by [facility]alth tablet 00:00 oral route :00 2 times every day meloxicam 2019- No 2{table QD take 2 [facility] 7.5 mg 07-24 t} tablet by [facility]alth tablet 00:00 oral route :00 every day as needed tizanidine 2019- No 1{table Q6H take 1 [facility] 4 mg tablet 07-24 t} tablet by ea l[facility] 00:00 oral route :00 every 6 - 8 hours as needed not to exceed 3 doses in 24 hours butalbital- 2019- No 1{capsu Q4H take 1 - 2 [facility] acetaminoph 07-24 le} capsule by e al[facility] en-caffeine 00:00 oral route 50 mg-325 :00 every 4 mg-40 mg hours as capsule needed not to exceed 6 capsules per 24hrs ProAir HFA 2019- No 1{puff} Q4H inhale 1 A ccessH 90 10-09 puff by [facility] mcg/actuati 00:00 inhalation on aerosol :00 route inhaler every 4 hours as needed Klonopin 1 2019- No 1{table Q8H take 1 [facility] mg tablet 10-09 t} tablet by [facility] 00:00 oral route :00 3 times every day gabapentin 2019- No 3{capsu Q8H take 3 Acc [facility] 300 mg 07-24 le} capsule by [facility] capsule 00:00 oral route :00 3 times every day sertraline 2019- No 1{table Q12H take 1 [facility] 100 mg 10-09 t} tablet by [facility]alth tablet 00:00 oral route :00 2 times every day meloxicam 2019- No 2{table QD take 2 [facility] 7.5 mg 10- t} tablet by [facility]alth tablet 00:00 oral route :00 every day as needed tizanidine 2019- No 1{table Q6H take 1 [facility] 4 mg tablet 10 t} tablet by ea l[facility] 00:00 oral route :00 every 6 - 8 hours as needed not to exceed 3 doses in 24 hours butalbital- 2019- No 1{capsu Q4H take 1 - 2 [facility] acetaminoph 07-24 le} capsule by e al[facility] en-caffeine 00:00 oral route 50 mg-325 :00 every 4 mg-40 mg hours as capsule needed not to exceed 6 capsules per 24hrs ProAir HFA 2019- No 1{puff} Q4H inhale 1 A ccessH 90 07-24 puff by [facility] mcg/actuati 00:00 inhalation on aerosol :00 route inhaler every 4 hours as needed Klonopin 1 2019- No 1{table Q8H take 1 [facility] mg tablet 07-24 t} tablet by [facility] 00:00 oral route :00 3 times every day gabapentin 2019- No 3{capsu Q8H take 3 Acc [facility] 300 mg 07-24 le} capsule by [facility] capsule 00:00 oral route :00 3 times every day sertraline 2019- No 1{table Q12H take 1 [facility] 100 mg 10-09 t} tablet by [facility]alth tablet 00:00 oral route :00 2 times every day meloxicam 2019- No 2{table QD take 2 [facility] 7.5 mg 10-09 t} tablet by [facility]alth tablet 00:00 oral route :00 every day as needed tizanidine 2019- No 1{table Q6H take 1 [facility] 4 mg tablet 10-09 t} tablet by ea l[facility] 00:00 oral route :00 every 6 - 8 hours as needed not to exceed 3 doses in 24 hours butalbital- 2019- No 1{capsu Q4H take 1 - 2 [facility] acetaminoph 07-24 le} capsule by e al[facility] en-caffeine 00:00 oral route 50 mg-325 :00 every 4 mg-40 mg hours as capsule needed not to exceed 6 capsules per 24hrs ProAir HFA 2019- No 1{puff} Q4H inhale 1 A ccessH 90 10-09 puff by [facility] mcg/actuati 00:00 inhalation on aerosol :00 route inhaler every 4 hours as needed Klonopin 1 2019- No 1{table Q8H take 1 [facility] mg tablet 07-24 t} tablet by [facility] 00:00 oral route :00 3 times every day gabapentin 2019- No 3{capsu Q8H take 3 Acc [facility] 300 mg 07-24 le} capsule by [facility] capsule 00:00 oral route :00 3 times every day sertraline 2019- No 1{table Q12H take 1 [facility] 100 mg 07-24 t} tablet by [facility]alth tablet 00:00 oral route :00 2 times every day meloxicam 2019- No 2{table QD take 2 [facility] 7.5 mg 07-24 t} tablet by [facility]alth tablet 00:00 oral route :00 every day as needed tizanidine 2019- No 1{table Q6H take 1 [facility] 4 mg tablet 07-24 t} tablet by ea l[facility] 00:00 oral route :00 every 6 - 8 hours as needed not to exceed 3 doses in 24 hours butalbital- 2019- No 1{capsu Q4H take 1 - 2 [facility] acetaminoph 07-24 le} capsule by e alth en-caffeine 00:00 oral route 50 mg-325 :00 every 4 mg-40 mg hours as capsule needed not to exceed 6 capsules per 24hrs ProAir HFA 2019- No 1{puff} Q4H inhale 1 A ccessH 90 10-09 puff by [facility] mcg/actuati 00:00 inhalation on aerosol :00 route inhaler every 4 hours as needed Klonopin 1 2019- No 1{table Q8H take 1 [facility] mg tablet 07-24 t} tablet by [facility] 00:00 oral route :00 3 times every day gabapentin 2019- No 3{capsu Q8H take 3 Acc [facility] 300 mg 07-24 le} capsule by [facility] capsule 00:00 oral route :00 3 times every day sertraline 2019- No 1{table Q12H take 1 [facility] 100 mg 10 t} tablet by [facility]alth tablet 00:00 oral route :00 2 times every day meloxicam 2019- No 2{table QD take 2 [facility] 7.5 mg 10- t} tablet by [facility]alth tablet 00:00 oral route :00 every day as needed tizanidine 2019- No 1{table Q6H take 1 [facility] 4 mg tablet 07-24 t} tablet by ea lth 00:00 oral route :00 every 6 - 8 hours as needed not to exceed 3 doses in 24 hours butalbital- 2019- No 1{capsu Q4H take 1 - 2 [facility] acetaminoph 07-24 le} capsule by e alth en-caffeine 00:00 oral route 50 mg-325 :00 every 4 mg-40 mg hours as capsule needed not to exceed 6 capsules per 24hrs ProAir HFA 2019- No 1{puff} Q4H inhale 1 A [facility] 90 07-24 puff by ealt mcg/actuati 00:00 inhalation on aerosol :00 route inhaler every 4 hours as needed Klonopin 1 2019- No 1{table Q8H take 1 [facility] mg tablet 07-24 t} tablet by ealt h 00:00 oral route :00 3 times every day gabapentin 2019- No 3{capsu Q8H take 3 [facility] 300 mg 07-24 le} capsule by [facility] capsule 00:00 oral route :00 3 times every day sertraline 2019- No 1{table Q12H take 1 [facility] 100 mg 1009 t} tablet by [facility] tablet 00:00 oral route :00 2 times every day meloxicam 2019- No 2{table QD take 2 [facility] 7.5 mg 10-09 t} tablet by [facility] tablet 00:00 oral route :00 every day as needed tizanidine 2019- No 1{table Q6H take 1 [facility] 4 mg tablet 10-09 t} tablet by ea lth 00:00 oral route :00 every 6 - 8 hours as needed not to exceed 3 doses in 24 hours butalbital- 2019- No 1{capsu Q4H take 1 - 2 [facility] acetaminoph 10-09 le} capsule by e alth en-caffeine 00:00 oral route 50 mg-325 :00 every 4 mg-40 mg hours as capsule needed not to exceed 6 capsules per 24hrs ProAir HFA 2019- No 1{puff} Q4H inhale 1 A [facility] 90 10-09 puff by ealth mcg/actuati 00:00 inhalation on aerosol :00 route inhaler every 4 hours as needed Klonopin 1 2019- No 1{table Q8H take 1 [facility] mg tablet 07-24 t} tablet by ealt h 00:00 oral route :00 3 times every day gabapentin 2019- No 3{capsu Q8H take 3 [facility] 300 mg 07-24 le} capsule by [facility] capsule 00:00 oral route :00 3 times every day sertraline 2019- No 1{table Q12H take 1 [facility] 100 mg 07-24 t} tablet by [facility]alth tablet 00:00 oral route :00 2 times every day meloxicam 2019- No 2{table QD take 2 [facility] 7.5 mg 07-24 t} tablet by [facility]alth tablet 00:00 oral route :00 every day as needed tizanidine 2019- No 1{table Q6H take 1 [facility] 4 mg tablet 07-24 t} tablet by ea lth 00:00 oral route :00 every 6 - 8 hours as needed not to exceed 3 doses in 24 hours butalbital- 2019- No 1{capsu Q4H take 1 - 2 [facility] acetaminoph 07-24 le} capsule by e alth en-caffeine 00:00 oral route 50 mg-325 :00 every 4 mg-40 mg hours as capsule needed not to exceed 6 capsules per 24hrs ProAir HFA 2019- No 1{puff} Q4H inhale 1 A [facility] 90 10-09 puff by ealth mcg/actuati 00:00 inhalation on aerosol :00 route inhaler every 4 hours as needed Klonopin 1 2019- No 1{table Q8H take 1 [facility] mg tablet 07-24 t} tablet by ealt h 00:00 oral route :00 3 times every day gabapentin 2019- No 3{capsu Q8H take 3 [facility] 300 mg 07-24 le} capsule by [facility] capsule 00:00 oral route :00 3 times every day sertraline 2019- No 1{table Q12H take 1 [facility] 100 mg 10 t} tablet by [facility]alth tablet 00:00 oral route :00 2 times every day meloxicam 2019- No 2{table QD take 2 [facility] 7.5 mg 10- t} tablet by [facility] tablet 00:00 oral route :00 every day as needed tizanidine 2019- No 1{table Q6H take 1 [facility] 4 mg tablet 07-24 t} tablet by ea lth 00:00 oral route :00 every 6 - 8 hours as needed not to exceed 3 doses in 24 hours butalbital- 2019- No 1{capsu Q4H take 1 - 2 [facility] acetaminoph 07-24 le} capsule by e alth en-caffeine 00:00 oral route 50 mg-325 :00 every 4 mg-40 mg hours as capsule needed not to exceed 6 capsules per 24hrs ProAir HFA 2019- No 1{puff} Q4H inhale 1 A [facility] 90 07-24 puff by ealt mcg/actuati 00:00 inhalation on aerosol :00 route inhaler every 4 hours as needed Klonopin 1 2019- No 1{table Q8H take 1 [facility] mg tablet 07-24 t} tablet by ealt h 00:00 oral route :00 3 times every day gabapentin 2019- No 3{capsu Q8H take 3 [facility] 300 mg 07-24 le} capsule by [facility] capsule 00:00 oral route :00 3 times every day sertraline 2019- No 1{table Q12H take 1 [facility] 100 mg 10 t} tablet by [facility]alth tablet 00:00 oral route :00 2 times every day meloxicam 2019- No 2{table QD take 2 [facility] 7.5 mg 10- t} tablet by [facility] tablet 00:00 oral route :00 every day as needed tizanidine 2019- No 1{table Q6H take 1 [facility] 4 mg tablet 10-09 t} tablet by ea lth 00:00 oral route :00 every 6 - 8 hours as needed not to exceed 3 doses in 24 hours butalbital- 2019- No 1{capsu Q4H take 1 - 2 [facility] acetaminoph 07-24 le} capsule by e alth en-caffeine 00:00 oral route 50 mg-325 :00 every 4 mg-40 mg hours as capsule needed not to exceed 6 capsules per 24hrs ProAir HFA 2019- No 1{puff} Q4H inhale 1 A [facility] 90 07-24 puff by ealt mcg/actuati 00:00 inhalation on aerosol :00 route inhaler every 4 hours as needed Klonopin 1 2019- No 1{table Q8H take 1 [facility] mg tablet 07-24 t} tablet by ealt h 00:00 oral route :00 3 times every day Vital Signs Vital Name Observation Time Observation Value Comments Source Systolic blood 2022-06-19 145 mm[Hg] [facility] pressure 18:29:00 [facility] Diastolic blood 2022-06-19 65 mm[Hg] [facility] pressure 18:29:00 [facility] Heart rate 2022-06-19 93 /min [facility] 18:29:00 [facility] Body temperature 2022-06-19 37 Eun [facility] 18:29:00 [facility] Respiratory rate 2022-06-19 18 /min [facility] 18:29:00 [facility] Body weight 2022-06-19 72.576 kg [facility] 18:29:00 [facility] BMI 2022-06-19 31.25 kg/m2 [facility] 18:29:00 [facility] Oxygen saturation 2022-06-19 100 /min [facility] Arterial blood 18:29:00 [facility] by Pulse oximetry Branch Body height 2020-12-25 149.86 cm [facility] 17:19:00 Patient Body Weight 2020-12-25 70.942 kg [facility] 17:19:00 [facility] 2020-12-25 105 mm[Hg] [facility] Systolic 17:19:00 [facility] 2020-12-25 66 mm[Hg] [facility] Diastolic 17:19:00 Heart Beat 2020-12-25 98 /min [facility] 17:19:00 Body Temperature 2020-12-25 36.39 Eun [facility] 17:19:00 Respiratory Rate 2020-12-25 18 /min [facility] 17:19:00 Body mass index 2020-12-25 31.59 kg/m2 [facility] 17:19:00 O2 % BldC Oximetry 2020-12-25 97 % [facility] 17:19:00 Body height 2020-11-17 149.86 cm [facility] 14:32:00 Patient Body Weight 2020-11-17 76.566 kg [facility] 14:32:00 [facility] 2020-11-17 96 mm[Hg] [facility] Systolic 14:32:00 [facility] 2020-11-17 59 mm[Hg] [facility] Diastolic 14:32:00 Heart Beat 2020-11-17 87 /min [facility] 14:32:00 Body Temperature 2020-11-17 36.28 Eun [facility] 14:32:00 Respiratory Rate 2020-11-17 18 /min [facility] 14:32:00 Body mass index 2020-11-17 34.09 kg/m2 [facility] 14:32:00 O2 % BldC Oximetry 2020-11-17 98 % [facility] 14:32:00 Body height 2020-08-27 149.86 cm [facility] 14:32:00 Patient Body Weight 2020-08-27 76.748 kg [facility] 14:32:00 [facility] 2020-08-27 126 mm[Hg] [facility] Systolic 14:32:00 [facility] 2020-08-27 79 mm[Hg] [facility] Diastolic 14:32:00 Heart Beat 2020-08-27 120 /min [facility] 14:32:00 Body Temperature 2020-08-27 36.78 Eun [facility] 14:32:00 Respiratory Rate 2020-08-27 72 /min [facility] 14:32:00 Body mass index 2020-08-27 34.17 kg/m2 [facility] 14:32:00 Body height 2020-08-26 149.86 cm [facility] 16:03:00 Patient Body Weight 2020-08-26 77.201 kg [facility] 16:03:00 [facility] 2020-08-26 131 mm[Hg] [facility] Systolic 16:03:00 [facility] 2020-08-26 80 mm[Hg] [facility] Diastolic 16:03:00 Heart Beat 2020-08-26 105 /min [facility] 16:03:00 Body Temperature 2020-08-26 36.78 Eun [facility] 16:03:00 Body mass index 2020-08-26 34.38 kg/m2 [facility] 16:03:00 Body height 2020-06-04 149.86 cm [facility] 13:37:00 Patient Body Weight 2020-06-04 74.661 kg [facility] 13:37:00 [facility] 2020-06-04 96 mm[Hg] [facility] Systolic 13:37:00 Int[facility]ascular 2020-06-04 56 mm[Hg] [facility] Diastolic 13:37:00 Heart Beat 2020-06-04 86 /min [facility] 13:37:00 Body Temperature 2020-06-04 36.72 Eun [facility] 13:37:00 Respiratory Rate 2020-06-04 16 /min [facility] 13:37:00 Body mass index 2020-06-04 33.24 kg/m2 [facility] 13:37:00 O2 % BldC Oximetry 2020-06-04 98 % [facility] 13:37:00 Body height 2020 149.86 cm [facility] 13:36:00 Patient Body Weight 2020 78.471 kg [facility] 13:36:00 [facility] 2020 158 mm[Hg] [facility] Systolic 13:36:00 [facility] 2020 80 mm[Hg] [facility] Diastolic 13:36:00 Heart Beat 2020 83 /min [facility] 13:36:00 Body Temperature 2020 36.67 Eun [facility] 13:36:00 Respiratory Rate 2020 20 /min [facility] 13:36:00 Body mass index 2020 34.94 kg/m2 [facility] 13:36:00 Body height 2019-12-20 149.86 cm [facility] 13:38:00 Patient Body Weight 2019-12-20 81.737 kg [facility] 13:38:00 [facility] 2019-12-20 95 mm[Hg] [facility] Systolic 13:38:00 [facility] 2019-12-20 57 mm[Hg] [facility] Diastolic 13:38:00 Heart Beat 2019-12-20 63 /min [facility] 13:38:00 Body Temperature 2019-12-20 35.67 Eun [facility] 13:38:00 Respiratory Rate 2019-12-20 16 /min [facility] 13:38:00 Body mass index 2019-12-20 36.39 kg/m2 [facility] 13:38:00 O2 % BldC Oximetry 2019-12-20 98 % [facility] 13:38:00 Body height 2019-07-24 149.86 cm [facility] 13:26:00 Patient Body Weight 2019-07-24 78.290 kg [facility] 13:26:00 [facility] 2019-07-24 106 mm[Hg] [facility] Systolic 13:26:00 Int[facility]ascular 2019-07-24 76 mm[Hg] [facility] Diastolic 13:26:00 Heart Beat 2019-07-24 109 /min [facility] 13:26:00 Body Temperature 2019-07-24 36.94 Eun [facility] 13:26:00 Respiratory Rate 2019-07-24 16 /min [facility] 13:26:00 Body mass index 2019-07-24 34.86 kg/m2 [facility] 13:26:00 BP Systolic 2018-04-27 98 mm[Hg] Location: [facility]; [facility] 13:27:00 Position: Sitting BP Diastolic 2018-04-27 70 mm[Hg] Location: [facility]; [facility] 13:27:00 Position: Sitting Height 2018-04-27 62 [in_us] [facility] 13:27:00 Weight 2018-04-27 176 [lb_av] [facility] 13:27:00 Body Mass Index 2018-04-27 32.19 kg/m2 [facility] 13:27:00 Temperature 2018-04-27 98.8 [degF] [facility] 13:27:00 BP Systolic 2018-04-20 134 mm[Hg] Location: [facility]; [facility] 15:55:00 Position: Sitting BP Diastolic 2018-04-20 80 mm[Hg] Location: [place]; [facility] 15:55:00 Position: Sitting Height 2018-04-20 62 [in_us] [facility] 15:55:00 Weight 2018-04-20 176 [lb_av] [facility] 15:55:00 Body Mass Index 2018-04-20 32.19 kg/m2 [facility] 15:55:00 Temperature 2018-04-20 99.8 [degF] [facility] 15:55:00 BP Systolic 2018-04-10 100 mm[Hg] Location: [place]; [facility] 13:13:00 Position: Sitting BP Diastolic 2018-04-10 60 mm[Hg] Location: [place]; [facility] 13:13:00 Position: Sitting Height 2018-04-10 62 [in_us] [facility] 13:13:00 Weight 2018-04-10 176 [lb_av] [facility] 13:13:00 Body Mass Index 2018-04-10 32.19 kg/m2 [facility] 13:13:00 Temperature 2018-04-10 97.5 [degF] [facility] 13:13:00 BP Systolic 2018-03-30 100 mm[Hg] Location: E; [facility] 13:52:00 Position: Sitting BP Diastolic 2018-03-30 60 mm[Hg] Location: LUE; [facility] 13:52:00 Position: Sitting Temperature 2018-03-30 98.7 [degF] [facility] 13:52:00 Height 2018-03-30 62 [in_us] [facility] 13:52:00 Weight 2018-03-30 176 [lb_av] [facility] 13:52:00 Body Mass Index 2018-03-30 32.19 kg/m2 [facility] 13:52:00 Diastolic (mm Hg) 2014-08-09 [facility] 21:20:00 Temperature Oral 2014-08-09 97.7 F [facility] ([facility] 21:20:00 Heart Rate 2014-08-09 [facility] 21:20:00 Respitory Rate 2014-08-09 [facility] 21:20:00 Systolic (mm Hg) 2014-08-09 [facility] 21:20:00 Diastolic (mm Hg) 2014-08-09 [facility] 17:00:00 Respitory Rate 2014-08-09 [facility] 17:00:00 Systolic (mm Hg) 2014-08-09 [facility] 17:00:00 Temperature Oral 2014-08-09 97.0 F [facility] (F) 17:00:00 Heart Rate 2014-08-09 [facility] 17:00:00 Respitory Rate 2014-08-09 [facility] 12:00:00 Diastolic (mm Hg) 2014-08-09 [facility] 12:00:00 Systolic (mm Hg) 2014-08-09 [facility] 12:00:00 Heart Rate 2014-08-09 [facility] 12:00:00 Temperature Oral 2014-08-09 97.0 F [facility] (F) 12:00:00 Height 2014-08-09 149.86 cm [facility] 06:51:00 Weight 2014-08-09 [facility] 06:51:00 BMI Calculated 2014-08-09 Libby Huang [facility]ael 06:51:00 Weight 2014-08-09 Libby Newell n 01:03:00 BMI Calculated 2014-08-09 Libby Huang asael 01:03:00 Height 2014-08-09 152.4 cm Lib[facility] Newell n 01:03:00 Procedures Procedure Date / Time Performing Source Performed Clinician CT CERVICAL SPINE WO 2022-06-19 19:06:51 Tigre Carrillo [facility] CONTRAST [facility] CT HEAD WO CONTRAST 2022-06-19 19:06:51 [facility] CONSENT/REFUSAL FOR 2022-06-19 18:27:58 Doctor Unassigned, [facility] DIAGNOSIS AND TREATMENT [facility] PSYTX W PT 45 MINUTES 2021-03-22 00:00:00 [facility] PSYTX W PT 45 MINUTES 2020-12-29 00:00:00 [facility]CH [facility]NOSTIC 2020-12-08 [facility] 2020-08-27 00:00:00 [facility] EST COMPLETE CBC W/AUTO DIFF 2020-08-27 00:00:00 [facility] WBC COMPREHEN METABOLIC PANEL 2020-08-27 00:00:00 [facility] LIPID PANEL 2020-08-27 00:00[facility] STIM HORMONE 2020-08-27 00:00:00 [facility] SYPHILIS TEST NON-TREP 2020-08-27 [facility] 25 HYDROXY 2020-08-27 00:00:00 [facility] HIV-1 AG W/HIV-1 & HIV-2 2020-08-27 00:00:00 [facility] AB PREV VISIT EST AGE 40-64 2020-08-26 00:00:00 [facility] WAYLON VIRUS ISOLATE HSV 2020-08-26 00:00:00 [facility] CYTOPATH C/V AUTO FLUID 2020-08-26 00:00:00 [facility] REDO OFFICE/OUTPATIENT VISIT 2020-06-04 00:00:00 [facility] EST COMPLETE CBC W/AUTO DIFF 2020-06-04 00:00:00 [facility] WBC COMPREHEN METABOLIC PANEL 2020-06-04 00:00:00 [facility] LIPID PANEL 2020-06-04 00:00:00 [facility] ASSAY THYROID STIM HORMONE 2020-06-04 00:00:00 [facility] OFFICE/OUTPATIENT VISIT 2020 00:00:00 [facility] EST OFFICE/OUTPATIENT VISIT 2019-12-20 00:00:00 [facility] EST OFFICE/OUTPATIENT VISIT 2019-07-24 [facility] CULTURE, URINE, 2018-04-20 00:00:[facility] ROUT[facility] Bladder 2018-03-30 00:00[facility]00 [facility] Cystourethrogram [facility] 32094 Banding of gastric varices [facility] History of Gastric bypass [facility] surgery [facility] vaginal History of [facility] Salpingo-oophorectomy bilateral Plan of Care Planned Activity Planned Date Details Comments Source Future Scheduled 2022-06-16 [facility] 21:16:25 VACCINES (1 of 3 - 3-dose series) [code = HEPATITIS B VACCINES (1 of 3 - 3-dose series)] Future Scheduled 2022-06-16 COVID-19 [facility]INE [facility] 21:16:25 (#1) [code = COVID-19 VACCINE (#1)] Future Scheduled 2022-06-16 Screening [facility] 21:16:25 malignant neoplasm of cervix (procedure) [code = 701538783] Future Scheduled 2022-06-16 BREAST CANCER [facility] Test 21:16:25 SCREENING [code = BREAST CANCER SCREENING] Future Scheduled 2022-06-16 [facility]INE [facility] 21:16:25 [code = INFLUENZA VACCINE] Future Scheduled Screening for [facility] Test malignant neoplasm of cervix (procedure) [code = 223426753] Future Scheduled [facility] [code = INFLUENZA VACCINE] Future Scheduled COVID-19 [facility]ACCINE [facility] (1) [code = COVID-19 VACCINE (1)] Encounters Start End Encounter Admission Attending Care Care Encounter Source Date/Time Date/Time Type Type Clinicians Facility Department ID 2022-06-19 2022-06-19 Emergency Shiva, GENE [id number] [facility] 13:32:00 15:11:00 Tigre HERNANDEZ [id number] i [facility] [id number] [facility] [id number] [address] 2022-06-19 2022-06-19 Emergency X SHIVA [facility] ERT [id number] [facility] 13:32:00 15:11:00 TIGRE boyle [facility] 2021-10-21 2021-10-21 Outpatient PLUNKETT, [facility] [id number] Access 12:39:00 12:39:00 KATELINE ealt 2021-10-21 2021-10-21 Outpatient PLUNKETT, [facility] [id number] Access 12:39:00 12:39:00 KATELINE [id number] [facility] [id number] 2021-10-12 2021-10-12 Outpatient PLUNKETT, [facility] [id number] Access 10:05:00 10:05:00 [facility]INE [facility] 2021-10-12 2021-10-12 Outpatient PLUNKETT, [facility] [id number] Access 10:05:00 10:05:00 KATELINE [id number] [facility] [id number] 2021-06-23 Outpatient PLUNKETT, [facility] [id number] Access 08:14:00 08:14:00 KATELINE ealt 2021-06-23 2021-06-23 Outpatient PLUNKETT, [facility] [id number] Access 08:14:00 08:14:00 KATELINE [id number] [facility] [id number] 2021-06-18 2021-06-18 Outpatient PLUNKETT, [facility] [id number] Access 08:06:00 08:06:00 KATELINE ealt 2021-06-18 2021-06-18 Outpatient PLUNKETT, [facility] [id number] Access 08:06:00 08:06:00 KATELINE [id number] ealt [id number] 2021-06-04 2021-06-04 Outpatient PLUNKETT, [facility] [id number] Access 08:14:00 08:14:00 KATELINE [facility]alth 2021-06-04 2021-06-04 Outpatient PLUNKETT, [facility] [id number] Access 08:14:00 08:14:00 KATELINE [id number] ealt [id number] 2021-06-01 2021-06-01 Outpatient PLUNKETT, [facility] [id number] Access 08:13:00 08:13:00 KATELINE ealth 2021-06-01 2021-06-01 Outpatient PLUNKETT, [facility] [id number] Access 08:13:00 08:13:00 KATELINE [id number] [facility] [id number] 2021-05-27 2021-05-27 Outpatient PLUNKETT, [facility] [id number] Access 08:14:00 08:14:00 KATELINE ealth 2021-05-27 2021-05-27 Outpatient PLUNKETT, [facility] [id number] Access 08:14:00 08:14:00 KATELINE [id number] ealt [id number] 2021-05-14 2021-05-14 Outpatient PLUNKETT, [facility] [id number] Access 08:11:00 08:11:00 KATELINE ealth 2021-05-14 2021-05-14 Outpatient PLUNKETT, [facility] [id number] Access 08:11:00 08:11:00 KATELINE [id number] [facility] [id number] 2021-04-15 2021-04-15 Outpatient PLUNKETT, [facility] [id number] Access 09:46:00 09:46:00 KATELINE ealt 2021-04-15 2021-04-15 Outpatient PLUNKETT, [facility] [id number] Access 09:46:00 09:46:00 KATELINE [id number] [facility] [id number] 2021-03-22 2021-03-22 Outpatient MÉNDEZ, [facility] [id number] Access 14:00:00 14:00:00 RADHA ealt 2021-03-22 2021-03-22 PSYTX W PT MÉNDEZ, [facility] [id number] Access 14:00:00 14:00:00 45 MINUTES RADHA [id number] [facility] [id number] 5435-06-03 2021-03-18 Outpatient PLUNKETT, [facility] [id number] Access 07:33:00 07:33:00 KATELINE ealth 2021-03-18 2021-03-18 Outpatient PLUNKETT, [facility] [id number] Access 07:33:00 07:33:00 KATELINE [id number] ealt [id number] 2021-03-12 2021-03-12 Outpatient PLUNKETT, [facility] [id number] Access 09:47:00 09:47:00 KATELINE ealth 2021-03-12 2021-03-12 Outpatient PLUNKETT, [facility] [id number] Access 09:47:00 09:47:00 KATELINE [id number] [facility] [id number] 2021-03-09 2021-03-09 Outpatient PLUNKETT, [facility] [id number] Access 15:55:00 15:55:00 KATELINE ealt 2021-03-09 2021-03-09 Outpatient PLUNKETT, [facility] [id number] Access 15:55:00 15:55:00 KATELINE [id number] [facility] [id number] 2021-03-09 2021-03-09 Outpatient PLUNKETT, [facility] [id number] Access 09:27:00 09:27:00 [facility] 2021-03-09 2021-03-09 Outpatient PLUNKETT, [facility] [id number] Access 09:27:00 09:27:00 KATELINE [id number] [facility] [id number] 2021-02-22 2021-02-22 Outpatient NURSE, [facility] [id number] Access 08:39:00 08:39:00 NURSE ealt 2021-02-22 2021-02-22 Outpatient NURSE, [facility] [id number] Access 08:39:00 08:39:00 NURSE [id number] ealt [id number] 2021-02-02 2021-02-02 Outpatient PLUNKETT, [facility] [id number] Access 09:56:00 09:56:00 KATELINE ealt 2021-02-02 2021-02-02 Outpatient PLUNKETT, [facility] [id number] Access 09:56:00 09:56:00 KATELINE [id number] 2021-01-19 2021-01-19 Outpatient PLUNKETT, [facility] [id number] Access 08:28:00 08:28:00 KATELINE [facility]alth 2021-01-19 2021-01-19 Outpatient PLUNKETT, [facility] [id number] Access 08:28:00 08:28:00 KATELINE [id number] [id number] [facility] [id number] 2020-12-29 Outpatient MÉNDEZ, [facility] [id number] Access 14:00:00 14:00:00 RADHA [facility]alth 2020-12-29 2020-12-29 PSYTX W PT MÉNDEZ, [facility] [id number] Access 14:00:00 14:00:00 45 MINUTES RADHA e2-2xt2-04p 84b-48 a6-8 lt [id number] e7z-xdx7al 0f4 [id number] 2020-12-25 2020-12-25 Outpatient PLUNKETT, [facility] [id number] Access 18:06:00 18:06:00 KATELINE [facility]alth 2020-12-25 2020-12-25 Outpatient PLUNKETT, [facility] [id number] AccessH 18:06:00 18:06:00 KATELINE e2-1mr7-45k 01c-4ec1- 9 ealt [id number] 0f4 fa18dc 2020-12-25 2020-12-25 Outpatient PLUNKETT, [facility] [id number] Access 18:00:00 18:00:00 KATELINE ealth 2020-12-25 2020-12-25 Outpatient PLUNKETT, [facility] [id number] Access 18:00:00 18:00:00 KATELINE e2-0ee6-65q bdb-4ba9- 9 [facility] [id number] 0f4 [id number] 2020-12-09 2020-12-09 Outpatient PLUNKETT, [facility] [id number] Access 11:07:00 11:07:00 KATELINE [facility] 2020-12-09 2020-12-09 Outpatient PLUNKETT, [facility] [id number] Access 11:07:00 11:07:00 KATELINE e9-44df-[id number] v8f-2gv4- 9 [facility] [id number] 2020-12-08 2020-12-08 Outpatient MÉNDEZ, [facility] [id number] Access 13:31:00 13:31:00 RADHA [facility] 2020-12-08 2020-12-08 PSYCH MÉNDEZ, [facility] [id number] [id number]-4 Access 13:31:00 13:31:00 DIAGNOSTIC RADHA e2-6fr6-02a 7b1-48 4d-a [facility] EVALUATION [id number] b 0f4 [id number] 2020-12-08 2020-12-08 Outpatient PLUNKETT, [facility] [id number] Access 08:47:00 08:47:00 KATELINE [facility] 2020-12-08 2020-12-08 Outpatient PLUNKETT, [facility] 2hv4g8k2-6n 5ca 9fgs2-6 Access 08:47:00 08:47:00 KATELINE e2-2ch3-30c u64-42qx- 8 [facility] 0-hx5ixd019 h49-924a9e 0f4 300cc8 2020-12-07 2020-12-07 Outpatient PLUNKETT, [facility] [id number] Access 08:07:00 08:07:00 KATELINE [facility] 2020-12-07 2020-12-07 Outpatient [facility]UNKETT, [facility] 0wh1b8r3-0t 079 7rq0o-q Access[facility] 08:07:00 08:07:00 KATELINE e2-0lv2-40s 2l0-21l9- 8 ealth 0-bp6vai263 134-b96397 0f4 44c11e 2020-12-04 2020-12-04 Outpatient PLUNKETT, [facility] [id number] Access[facility] 13:20:00 13:20:00 KATELINE ealth 2020-12-04 2020-12-04 Outpatient PLUNKETT, [facility] 6dh1c1y2-5w 071 [id number] Access[facility] 13:20:00 13:20:00 KATELINE e2-1ne4-28c ec9-46e9- a ealth 0-wj5xvx985 7u5-jh1br9 0f4 92148v 2020-11-23 2020-11-23 Outpatient NURSE, [facility] 4le6m9r6-2o 859 3146d-f Access[facility] 11:22:00 11:22:00 NURSE e2-8fg3-32a 065-4f60-9 ealth 0-wp0bhj260 435-d8q900 0f4 11f75b 2020-11-19 2020-11-19 Outpatient SHAW, [facility] gvpc87cx-q6 6ed 8z145-3 Access[facility] 10:22:00 10:22:00 ANA ROSA e9-44df-910 m52-5s97-b ealth 4-8t2l4ws56 283-5830c6 c82 1476ed 2020-11-19 2020-11-19 Outpatient COLON SISSY, [facility] 0yk9v0a4-6z 0i268y78-6 Access[facility] 09:30:00 09:30:00 BREONNA e2-3ce7-60h 05f-4dea- 9 ealth 0-sw0yji073 607-100eef 0f4 552738 0104-02-03 2020-11-18 Outpatient NURSE, [facility] 2vy7x0x7-1l 8b8 387d0-i Access[facility] 14:23:00 14:23:00 NURSE e2-0xz3-98n g41-03p2-d ealth 0-yt0yir498 w3z-371cer 0f4 147007 1126-02-03 2020-11-18 Outpatient COLON SISSY, [facility] 4ma3q0l9-0s f8721g55-d Access[facility] 09:00:00 09:00:00 BREONNA e2-4ik2-42d dfa-44fa- a ealth 0-mc8wyj393 28f-972d30 0f4 74e70c 2020-11-17 2020-11-17 Outpatient PLUNKETT, [facility] 1pd1l8w5-8d 03f 3ew75-6 Access 14:45:00 14:45:00 KATELINE e2-0bi5-16c 05e-4248- a ealth 0-mk2bua200 fd9-5fcc19 0f4 q50629 2020-11-06 2020-11-06 Outpatient PLUNKETT, [facility] [id number] Access 10:32:00 10:32:00 KATELINE ealth 2020-11-06 2020-11-06 Outpatient [place]ETT, [facility] 2gq7s8h6-9v 509 8261a-c Access 10:32:00 10:32:00 KATELINE e2-8in8-65k 25a-41ba- a ealth 0-or1usp865 589-77dd9e 0f4 3a5e08 2020-10-13 2020-10-13 Outpatient PLUNKETT, [facility] [id number] Access 18:32:00 18:32:00 KATELINE ealth 2020-10-13 2020-10-13 Outpatient [place]T, [facility] 4xd3k8l4-8z 2a1 82j09-i Access 18:32:00 18:32:00 KATELINE e2-4ws4-67c s49-57q5- 9 ealth 0-lv3vbc082 cea-f7b2fa 0f4 br8039 2020-10-10 2020-10-10 Outpatient PLUNKETT, [facility] [id number] Access 10:05:00 10:05:00 KATELINE ealth 2020-10-10 2020-10-10 Outpatient [place]KETT, [facility] 4pg3q0n4-8o 2f0 6q5rh-9 Access[facility] 10:05:00 10:05:00 KATELINE e2-1jv2-98h t47-8075- 8 ealt 0-ph7hgc832 p2o-1m3675 0f4 a22a8a 2020-09-09 2020-09-09 Outpatient CHINO, [facility] [id number] Access[facility] 09:25:00 09:25:00 UBALDO ealth 2020-09-09 2020-09-09 Outpatient CHINO, [facility] 2zs6i9e5-0l a 026l6rf-2 Access[facility] 09:25:00 09:25:00 UBALDO e2-9yc9-14o 79c-46f2-a ealt 0-ge4nwh919 107-49a30b 0f4 50a17f 2020-09-02 2020-09-02 Outpatient BRITTON, [facility] [id number] Access[facility] 10:50:00 10:50:00 LANCE ealth 2020-09-02 2020-09-02 Outpatient BRITTON, [facility] 1bu7l1v1-7v c q866448-b Access[facility] 10:50:00 10:50:00 LANCE e2-1cj8-67l 251-4b2e-9 ealt 0-nc7jyb273 833-ci355r 0f4 737856 4189-11-17 2020-09-01 Outpatient PLUNKETT, [facility] [id number] Access[facility] 14:56:00 14:56:00 KATELINE ealth 2020-09-01 2020-09-01 Outpatient [place]KETT, [facility] 3vo8o7z5-4y 9e6 afh5f-g Access[facility] 14:56:00 14:56:00 KATELINE e2-0yl0-75i 6ed-4148- b ealt 0-fb3klh338 09b-9fe31b 0f4 c5b4ec 2020-08-29 2020-08-29 Outpatient BRITTON, [facility] [id number] Access[facility] 08:35:00 08:35:00 LANCE ealth 2020-08-29 2020-08-29 Outpatient BR[place]TON, [facility] 9su4t0y1-6f f o99c966-5 Access 08:35:00 08:35:00 LANCE e2-7tu6-57u 6u3-15y8-l [facility] 0-lh8prm314 4ab-014825 0f4 89a1c9 2020-08-27 2020-08-27 Outpatient PLUNKETT, [facility] [id number] Access 14:45:00 14:45:00 KATELINE ealt 2020-08-27 2020-08-27 OFFICE/OUT PLUNKETT, [facility] 5ls4s7s0-8k 9e4 4041f-3 Access 14:45:00 14:45:00 PATIENT BRANDON e2-0oe3-15v d09-07i3- a [facility] VISIT EST 0-uq4dlx048 748-7u7606 0f4 451900 8835-11-11 2020-08-26 Outpatient BRITTON, [facility] [id number] Access 16:30:00 16:30:00 LANCE ealt 2020-08-26 2020-08-26 PREV VISIT BRITTON, [facility] 4gs3k2w5-4i 2 6002e64-0 Access 16:30:00 16:30:00 EST AGE LANCE e2-6ft4-90d 275-44ca-a [facility] 40-64 0-uf7sqi768 0df-2eeba2 0f4 6b28d8 2020-08-18 2020-08-18 Outpatient PLUNKETT, [facility] [id number] Access 10:11:00 10:11:00 KATELINE ealth 2020-08-18 2020-08-18 Outpatient [place]T, [facility] 4yx1j6s2-2k 1ec 453r7-7 Access[facility] 10:11:00 10:11:00 KATELINE e2-6oy1-59a 95c-4017- a [facility] 0-dz9kvy279 feb-36c3ca 0f4 3q7306 2020-08-04 2020-08-04 Outpatient PLUNKETT, [facility] [id number] Access 11:06:00 11:06:00 KATELINE ealt 2020-08-04 2020-08-04 Outpatient [place]KETT, [facility] 8kx5s2y8-2v 337 08qv8-5 Access[facility] 11:06:00 11:06:00 KATELINE e2-6si4-86b 789-44ed- 9 ealt 0-br8grg087 824-245e22 0f4 v3q418 2020-07-23 2020-07-23 Outpatient PLUNKETT, [facility] [id number] Access[facility] 07:59:00 07:59:00 KATELINE ealt 2020-07-23 2020-07-23 Outpatient [place]KETT, [facility] 1xw4m4h8-9s 385 fs1i5-a Access[facility] 07:59:00 07:59:00 KATELINE e2-5na7-90s 81d-47b9- a ealt 0-uv7soh333 g09-uhs894 0f4 9efbe3 2020-07-21 2020-07-21 Outpatient PLUNKETT, [facility] [id number] Access[facility] 11:47:00 11:47:00 KATELINE ealt 2020-07-21 2020-07-21 Outpatient [place]KETT, [facility] 7nd9n5v8-7u 1e9 bada1-e Access[facility] 11:47:00 11:47:00 KATELINE e2-6nu1-45q 027-452a- b ealt 0-ld6nua726 815-cf24e4 0f4 462d7f 2020-07-20 2020-07-20 Outpatient NURSE, [facility] [id number] Access[facility] 13:56:00 13:56:00 NURSE ealt 2020-07-20 2020-07-20 Outpatient NURSE, [facility] 8xd2k7q7-1b 66c 06a50-z Access[facility] 13:56:00 13:56:00 NURSE e2-7nv4-55m 86c-4f99-a ealt 0-ph9qsd548 afa-3f8ea5 0f4 b536fd 2020-07-18 2020-07-18 Outpatient STUDENT, [facility] [id number] Access[facility] 09:34:00 09:34:00 BH STUDENT [facility] 2020-07-18 2020-07-18 Outpatient STUDENT, [facility] 9oo8m7g1-6z e04e8v8c-1 Access[facility] 09:34:00 09:34:00 STUDENT e2-1pt4-37s 048-44d 7-9 [facility] 0-yj8hwj070 409-03147b 0f4 c12ea7 2020-07-18 2020-07-18 Outpatient NURSE, [facility] [id number] Access[facility] 09:18:00 09:18:00 NURSE [facility] 2020-07-18 2020-07-18 Outpatient NURSE, [facility] tvt040uv-9x 3d6 awf8r-8 Access[facility] 09:18:00 09:18:00 NURSE 22-4926-a4f 4p5-7o11-7 [facility] f-21897818k 314-09751z magno 6j3320 2020-07-07 2020-07-07 Outpatient PLUNKETT, [facility] [id number] Access[facility] 08:32:00 08:32:00 KATCHRIS [facility] 2020-07-07 2020-07-07 Outpatient [place]KETT, [facility] 7iq2n0p0-1r 7fb g6795-3 Access[facility] 08:32:00 08:32:00 KATCHRIS e2-0nl0-00z 1eb-4acf- 8 [facility] 0-ei4wii005 60f-0d5ce5 0f4 070bc9 2020-07-06 2020-07-06 Outpatient LEXY [facility] [id number] Access[facility] 14:31:00 14:31:00 beatrice LOCKH[facility] LUZ 2020-07-06 2020-07-06 Outpatient LEXY [facility] 8bw5y2u2-9g a 71zgw4e-1 Access[facility] 14:31:00 14:31:00 RICHY e2-3wz2-83t a2b-46 b7-8 [facility] 0-gn6iux635 j34-6yh232 0f4 4a6c67 2020-06-23 2020-06-23 Outpatient PLUNKETT, [facility] [id number] Access[facility] 08:12:00 08:12:00 KATCHRIS [facility] 2020-06-23 2020-06-23 Outpatient PLUNKETT, [facility] 8ap8l3f0-5t 806 37k48-9 Access[facility] 08:12:00 08:12:00 KATELINE e2-9iu3-66a 58e-4c63- a ealt 0-kn1jeo623 o1w-a76656 0f4 7a9bd2 2020-06-23 2020-06-23 Outpatient NURSE, [facility] [id number] Access 08:11:00 08:11:00 NURSE [facility] 2020-06-23 2020-06-23 Outpatient NURSE, [facility] 3ic3d9i6-3f 424 152h6-3 Access[facility] 08:11:00 08:11:00 NURSE e2-0ry9-76q de2-498a-b ealt 0-hx3xth846 3x5-6q5d5a 0f4 ueu645 2020-06-09 2020-06-09 Outpatient NURSE, [facility] [id number] Access 08:42:00 08:42:00 NURSE [facility] 2020-06-09 2020-06-09 Outpatient NURSE, [facility] 9xr1y9l3-2v 861 00015-1 Access 08:42:00 08:42:00 NURSE e2-8ed7-88q y24-6ifu-8 lt 0-mw5cui968 1l2-753om0 0f4 1a3e66 2020-06-06 2020-06-06 Outpatient RICHARD, [facility] [id number] Access 09:46:00 09:46:00 JOSE [facility] 2020-06-06 2020-06-06 Outpatient RICHARD, [facility] 9zl8g1l7-1l f2b 2a896-s Access[facility] 09:46:00 09:46:00 JOSE Nazario e2-6xr7-81c v19-42he -b ealt 0-fe1nwf238 u3s-14lguz 0f4 a8c5d3 2020-06-05 2020-06-05 Outpatient OMORI, [facility] [id number] Access[facility] 10:24:00 10:24:00 WOLF lt 2020-06-05 2020-06-05 Outpatient OMORI, [facility] kuq867kt-5t f5f 4cefc-8 Access[facility] 10:24:00 10:24:00 WOLF 22-4926-a4f ce2-450a- 9 [facility] f-72464573p p47-32s409 magno i14536 2020-06-04 2020-06-04 Outpatient OMORI, [facility] [id number] Access 14:56:00 14:56:00 WOLF [facility] 2020-06-04 2020-06-04 Outpatient OMORI, [facility] gux098no-9m db7 08u57-1 Access 14:56:00 14:56:00 WOLF 22-4926-a4f ab5-40d1- b [facility] f-33740142t 6k0-c8c1d8 magno a43f41 2020-06-04 2020-06-04 Outpatient PLUNKETT, [facility] [id number] Access 13:45:00 13:45:00 LEAHCHRIS [facility] 2020-06-04 2020-06-04 OFFICE/OUT PLUNKETT, [facility] 7tz4b6k4-0k 74a e392o-6 Access 13:45:00 13:45:00 PATIENT LEAHCHRIS e2-1qo3-89a 6p2-46w1- b [facility] VISIT [facility] 0-vt6vgt417 123-368c8c 0f4 39f9ac 2020-06-04 2020-06-04 Outpatient PLUNKETT, [facility] [id number] Access 08:14:00 08:14:00 BRANDON [facility] 2020-06-04 2020-06-04 Outpatient PLUNKETT, [facility] 3lc1j8j7-3q 6ea sp596-b Access 08:14:00 08:14:00 BRANDON e2-8jm6-00j j03-9n94- 9 ealt 0-xj5sue313 81c-03214s 0f4 5544dc 2020-06-04 2020-06-04 Outpatient NURSE, [facility] [id number] Access 08:13:00 08:13:00 NURSE [facility] 2020-06-04 2020-06-04 Outpatient NURSE, [facility] 1wb3u5q5-1p 9a7 y6x1s-c Access 08:13:00 08:13:00 NURSE e2-2tx8-83d f1h-3s17-n ealt 0-ml3xnt876 4q2-syq102 0f4 269b45 2020-05-29 2020-05-29 Outpatient REBA, [facility] [id number] Access[facility] 08:36:00 08:36:00 LANCE ealth 2020-05-29 2020-05-29 Outpatient REBA, [facility] 3pt2x9q9-3m 5 [id number] Access[facility] 08:36:00 08:36:00 LANCE e2-0ql5-08k 42f-4dc3-9 ealth 0-kb6zzy657 977-953f40 0f4 30a9ec 2020-05-22 2020-05-22 Outpatient PLUNKETT, HC 7hh2g5u6-3m 6c3 sph1w-9 Access[facility] 08:28:00 08:28:00 KATELINE e2-6hy6-69o de9-470e- b ealth 0-yg6way471 43a-2a56c9 0f4 o3383i 2020-05-05 2020-05-05 Outpatient CHEN, [facility] 65317d12-ny 085 un7y4-8 Access[facility] 10:27:00 10:27:00 DEEPTI 89-477f-ac7 ab6-4623-9 ealth 5-e83a0t4b3 n0h-i94098 de3 0b18b4 2020-05-04 2020-05-04 Outpatient [facility]T, [facility] 9od4t6g7-4h 5af 361w0-l Access[facility] 15:21:00 15:21:00 KATELINE e2-7fz0-52k 91c-4274- a ealth 0-aa4qoq173 2ce-c9abdc 0f4 5c3b9a 2020-04-21 2020-04-21 Outpatient NURSE, HC 0ih9d2u6-4m 8ea a359b-3 Access[facility] 08:21:00 08:21:00 NURSE e2-8pq5-44d y44-7425-i ealth 0-ek4uuf012 l62-9640p6 0f4 656e66 2020-04-20 2020-04-20 Outpatient PLUNKETT, [facility] 4vf8m3j7-7s 8a1 c6756-5 Access[facility] 08:42:00 08:42:00 KATELINE e2-2ec9-25n 93f-4805- b ealth 0-wy0qum670 274-62bc59 0f4 fd9d80 2020-04-14 2020-04-14 Outpatient ANDREA WHITMAN HC 0np4o3f7-4j 45gj28md-8 Access[facility] 07:31:00 07:31:00 e2-1bf2-85h fe3-4ab9-a ealth 0-ye3ajw339 cc2-177cfb 0f4 e15561 2020-04-13 2020-04-13 Outpatient NURSE, HC 1gf1m5n9-4c 787 j6ilt-4 Access[facility] 16:27:00 16:27:00 NURSE e2-0xx2-50b 96a-41c8-b ealth 0-na1byq701 08b-3f4fa0 0f4 ea57c6 2020-04-07 2020-04-07 Outpatient NURSE, HC 8ed5m5p3-6c caf mu948-l [facility] 14:31:00 14:31:00 NURSE e2-8lr3-23d 43d-4a33-8 ealth 0-gq2xay923 e70-9zw594 0f4 u1n527 2020-03-31 2020-03-31 Outpatient [facility]ETT, HC 1yf9m1l3-4s d66 8043a-7 [facility] 10:00:00 10:00:00 KATELINE e2-2iq2-77e eb3-4fc9- 9 ealth 0-eq9gjc390 0fb-2x5032 0f4 5ddfc0 2020-03-16 2020-03-16 Outpatient NURSE, HC 7sn9b1g0-0l 212 04946-5 [facility] 09:55:00 09:55:00 NURSE e2-5pd8-91f bc2-4b00-9 ealth 0-tk1gmc261 31a-87035t 0f4 df0137 2020 2020 Outpatient ANDREA WHITMAN [facility] 4ds1e3k3-3j u7p7487v-v Access[facility] 17:52:00 17:52:00 e2-4bm4-15c 1c7-855p-6 ealth 0-ra7zxr900 828-469537 0f4 b551fe 2020 2020 OFFICE/OUT [facility], [facility] 3fb5l9l4-8x 3fc 15n11-7 Access[facility] 13:45:00 13:45:00 PATIENT KATELINE e2-1vr8-85j 65a-438b- 8 ealth VISIT EST 0-yj8ozu934 224-2g9378 0f4 ba3e27 2020-02-26 2020-02-26 Outpatient [facility], [facility] 1pn3k9i6-0h 97f e711a-8 [facility] 09:18:00 09:18:00 KATELINE e2-1ak3-05l 4a1-8873- 9 ealth 0-mj0alx297 10f-3n493q 0f4 7105e5 2020-02-24 2020-02-24 Outpatient [facility]T, [facility] 9jo6w2j2-5z c01 4v5i3-7 Access[facility] 13:36:00 13:36:00 KATELINE e2-7uu1-02y 363-44df- 9 ealth 0-uv8ovp933 d58-qcr6k9 0f4 7152b9 2020-02-17 2020-02-17 Outpatient NURSE, [facility] 7fs3d7d7-5a 9ad 6435f-7 [facility] 12:54:00 12:54:00 NURSE e2-4pt5-06j 6n5-6md4-m ealth 0-ka7xkd339 1ce-wu6777 0f4 1449d9 2020-01-30 2020-01-30 Outpatient [facility], [facility] 9df7a0z8-2i 019 b27d6-1 [facility] 08:46:00 08:46:00 KATELINE e2-4vv5-80x 3ae-459d- 8 ealth 0-zl7tps688 555-f11456 0f4 5t5809 2020-01-21 2020-01-21 Outpatient [facility], [facility] 7ty6l8j6-0r 3a9 964db-8 [facility] 10:58:00 10:58:00 KATELINE e2-0jr6-66s x3b-58j5- 9 ealth 0-du2cdg591 h66-397z5y 0f4 510fc6 2020-01-06 2020-01-06 Outpatient [facility], [facility] 7vi3h0g2-0s e92 85602-6 [facility] 14:37:00 14:37:00 KATELINE e2-0cw1-47z 5l4-7104- b ealth 0-bm0bvf818 i66-1w8d4v 0f4 2afd47 2020-01-02 2020-01-02 Outpatient [facility], [facility] 3vr3a9c9-1h c50 516bf-4 [facility] 13:59:00 13:59:00 KATELINE e2-3fl0-32j 257-4ff4- b ealth 0-mf4lne917 3s5-3zs307 0f4 92b3c8 2019-12-30 2019-12-30 Outpatient [facility], [facility] 8hz8r0w5-9l 517 0643b-2 [facility] 11:45:00 11:45:00 KATELINE e2-5cm4-69w db2-44e2- 8 ealth 0-fd4dal411 613-a9a7ab 0f4 2eb4d0 2019-12-27 2019-12-27 Outpatient WHITMAN, SON [facility] 4ze9z0x7-1s 602b0w3m-r Access[facility] 11:00:00 11:00:00 e2-9kk4-94w 953-47ec-b ealth 0-nj6sme416 c8c-v8mvt0 0f4 93h874 2019-12-23 2019-12-23 Outpatient [facility]T, [facility] 1ou6x1l8-1y 91a abf02-c [facility] 09:57:00 09:57:00 KATELINE e2-2sp9-63o 1q2-4636- a ealth 0-dr7all303 23c-5e5b6f 0f4 fe1429 2019-12-20 2019-12-20 OFFICE/OUT [facility], [facility] 0kz6v7c9-5v 1a2 40550-k [facility] 13:45:00 13:45:00 PATIENT KATELINE e2-9zl3-09p ab3-41a9- a ealth VISIT EST 0-lc9zhv611 p99-180n8e 0f4 9bb47e 2019-12-10 2019-12-10 Outpatient [facility]KETT, HC 0hv3q5p9-8c e81 8scq3-4 [facility] 09:33:00 09:33:00 BRANDON e2-6lc1-35i l29-4468- a ealth 0-zp3vmc406 cc4-07g660 0f4 132cae 2019-12-03 2019-12-03 Outpatient PL[facility]KETT, HC 5hr1w4o4-3j 17c 4ips5-h [facility] 08:39:00 08:39:00 BRANDON e2-8lh7-98v p2s-0p05- a ealth 0-xl8jkm477 k99-61i852 0f4 6c7b21 2019-12-03 2019-12-03 Outpatient NURSE, [facility] 0ak5b2n6-8m 921 cebd1-d [facility] 08:38:00 08:38:00 NURSE e2-8pa8-41x 211-4a27-8 ealth 0-mx7nde602 037-f9d7ba 0f4 b189ea 2019-11-21 2019-11-21 Outpatient NURSE, HC 9kr6p1e3-8d d4e 0m8u8-0 [facility] 08:48:00 08:48:00 NURSE e2-2gx0-13i 72f-496a-8 ealth 0-bi4qft268 926-7n4843 0f4 xq171w 2019-11-19 2019-11-19 Outpatient NURSE, [facility] 7mn4r4t5-3q d24 3032d-3 [facility] 09:38:00 09:38:00 NURSE e2-6ej1-09o dcd-442b-b ealth 0-bo0ekz284 s47-dnaffr 0f4 004249 8002-11-08 2019-08-23 Outpatient PL[facility]KETT, HC 6kv3x9d5-9z 884 5v841-9 [facility] 13:53:00 13:53:00 BRANDON e2-5xy4-76v v86-274t- 8 ealth 0-do6jci018 819-31358c 0f4 qb773f 2019-08-07 2019-08-07 Outpatient NURSE, [facility] 7ys8j3h3-0t 15c 3x0s2-6 [facility] 15:33:00 15:33:00 NURSE tabby9mt0-67k 341-4956-b ealth 0-ut1fei829 49b-32de09 0f4 32ef3c 2019-08-02 2019-08-02 Outpatient PLUNKETT, [facility] [id number] [id number] [facility] 15:43:00 15:43:00 BRANDON mcnair-3sb6-73o [id number]- 8 ealth 0-[id number] [id number] 0f4 [id number] 2019-07-25 2019-07-25 Outpatient NURSE, [facility] [id number] [facility] 13:14:00 13:14:00 NURSE maricel4wf3-50x [id number] ealth [id number] 0f4 [id number] 2019-07-24 2019-07-24 OFFICE/OUT PLUNKETT, [facility] [id number] 0a8 [id number] [facility] 13:00:00 13:00:00 PATIENT BRANDON mcnair-7ot5-56v f60-59ag- 9 ealth VISIT NEW [id number] 0f4 [id number] 2019-05-25 2019-05-25 Emergency E MIKE, ANAI [facility] [id number] [place] 21:13:00 23:51:00 Medica l Center 2018-06-06 2018-06-06 EDILBERTO David [facility] 41 [id number] [place] 13:20:00 13:20:00 t; Ted PATEL [facility] 2018-04-27 2018-04-27 EDILBERTO David [facility] 41 [id number] [place] 13:20:00 13:20:00 t; Ted PATEL gy [facility] 2018-04-20 2018-04-20 EDILBERTO Martinez [facility] 4 [id number] [place] 15:40:00 15:40:00 t; MALGORZATA MANRIQUEZ [facility] ans MALGORZATA MANRIQUEZ 2018-04-10 2018-04-10 Appointheide [facility] UroGynecolo 4 [id number] [place] 13:20:00 13:20:00 t; MALGORZATA MANRIQUEZ [facility] MALGORZATA MANRIQUEZ 2018-03-30 2018-03-30 Valente [facility] UroGynecolo 4 [id number] [place] 13:40:00 13:40:00 t; MALGORZATA MANRIQUEZ [facility] MALGORZATA MANRIQUEZ 2018-03-15 2018[facility]03[facility] [id number] [place] 11:30:00 11:30:00 t; Ted PATEL ans NINA, M.D. 2018-02-16 2018-02-16 Valente [facility] [id number] [place] 11:50:00 11:50:00 t; Ted PATEL ans NINA, M.D. 2017-12-22 2017-12-22 Valente [facility] UTP [id number] [place] 13:40:00 13:40:00 t; MALGORZATA MANRIQUEZ [facility] MALGORZATA MANRIQUEZ 2014-08-09 2014-08-09 [facility] [id number] [place] 01:01:00 21:45:00 Observatio r [place] 65 l n Patient Hospital [facility] 2014-08-09 2014-08-09 OBS nullFlavo [facility] [id number] Memoria 01:01:00 21:45:00 Observatio r [place] 65 l n Patient [facility] 2014-08-08 2014-08-09 Outpatient [place], [id number]. [id number] 20:01:00 16:45:00 Trung Mercer [id number] 01 Results Test Description Test Time Test Comments Results Result Comments Source Panel Description: IGP, Aptima HPV, rfx 16/18,2020-08-31 14:56:00 Test Item Value Reference Range Interpretation Comme nts Clinician Comment Z90.710Z13.1Z13.0Z11.4Z11.59Z12.31A60.04Z01.411

Performed provided by:
[facility] [place] ()

ICD10: (test code = 64621-2) Performed Comment Issac kelsey, Agricultural Scientist (ASCP)

Performed by: (test by:
[facility] ()

code = 79393-6) Test Comment This liquid bas ed ThinPrep(R) pap test was screened with theuse of Methodolog an image guided system.

Performed by:
[facility] [place]: (test [place] ()

code = 63399-0) HPV Aptima Negative N This nucleic ac id amplification test detects fourteen high-riskHPV (test code e types (16,18,31 ,33,35,39,45,51,52,56,58,59,66,68) = 82161-9) g withoutdifferen tiation.

Performed by:
[facility] ()

t i v e [facility] Description: IGP, Aptima HPV, rfx 16/18, 14:56:00 Test Item Value Reference Range Interpretation Comments Clinician provided Comment Z90.710Z1 3.1Z13.0Z11.4Z11. ICD10: (test code = 59Z12.31 A60.04Z01.411
55037-7)
Performed by:
[facility] ()

Performed by: (test Comment Issac Keenan, code = 28925-8) Cytotechnolo gist (ASCP)
<br/ >Performed by:
[facility] ()

Test Methodology: Comment This liqui d based (test code = ThinPrep(R) pap test was 79537-3) screened with t heuse of an image guided system.

Performed by:
[facility] ()

HPV Aptima (test Negative Negative This nuclei c acid code = 62103-0) amplificatio n test detects fourteen high-r iskHPV types (16,18,31,33,35 ,39,45,51,5 2,56,58,59,66,6 8) withoutdifferen tiation.

Performe d by:
[facility] ()

[facility] Description: IGP, Aptima HPV, rfx 16/18,232546-80-48 14:56:00 Test Item Value Reference Range Interpretation Comments Clinician provided Comment Z90.710Z1 3.1Z13.0Z11.4Z11. ICD10: (test code = 59Z12.31 A60.04Z01.411
50480-6)
Performed by:
[facility] ()

Performed by: (test Comment Issac Keenan, code = 00112-3) Cytotechnolo gist (ASCP)
<br/ >Performed by:
[facility] ()

Test Methodology: Comment This liqui d based (test code = ThinPrep(R) pap test was 22404-0) screened with t heuse of an image guided system.

Performed by:
[facility])

HPV Aptima (test Negative Negative This nuclei c acid code = 68387-4) amplificatio n test detects fourteen high-r iskHPV types (16,18,31,33,35 ,39,45,51,5 2,56,58,59,66,6 8) withoutdifferen tiation.

Performe d by:
[facility])

[facility] Description: IGP, Aptima HPV, rfx 16/18,992388-80-43 14:56:00 Test Item Value Reference Range Interpretation Comments Clinician provided Comment Z90.710Z1 3.1Z13.0Z11.4Z11. ICD10: (test code = 59Z12.31 A60.04Z01.411
49465-8)
Performed by:
[facility])

Performed by: (test Comment Issac Keenan, code = 32942-3) Cytotechnolo gist (ASCP)
<br/ >Performed by:
[facility])

Test Methodology: Comment This liqui d based (test code = ThinPrep(R) pap test was 45530-9) screened with t heuse of an image guided system.

Performed by:
[facility])

HPV Aptima (test Negative Negative This nuclei c acid code = 15814-6) amplificatio n test detects fourteen high-r iskHPV types (16,18,31,33,35 ,39,45,51,5 2,56,58,59,66,6 8) withoutdifferen tiation.

Performe d by:
[facility])

[facility] Description: IGP, Aptima HPV, rfx 16/18,072670-10-25 14:56:00 Test Item Value Reference Range Interpretation Comments Clinician provided Comment Z90.710Z1 3.1Z13.0Z11.4Z11. ICD10: (test code = 59Z12.31 A60.04Z01.411
69068-9)
Performed by:
[facility] ()

Performed by: (test Comment Issac Keenan, code = 74530-2) Cytotechnolo gist (ASCP)
<br/ >Performed by:
[facility] ()

Test Methodology: Comment This liqui d based (test code = ThinPrep(R) pap test was 11428-0) screened with t heuse of an image guided system.

Performed by:
[facility] ()

HPV Aptima (test Negative Negative This nuclei c acid code = 48509-5) amplificatio n test detects fourteen high-r iskHPV types (16,18,31,33,35 ,39,45,51,5 2,56,58,59,66,6 8) withoutdifferen tiation.

Performe d by:
[facility] ()

[facility] Description: IGP, Aptima HPV, rfx 16/18,639036-76-25 14:56:00 Test Item Value Reference Range Interpretation Comments Clinician provided Comment Z90.710Z1 3.1Z13.0Z11.4Z11. ICD10: (test code = 59Z12.31 A60.04Z01.411
50822-5)
Performed by:
[facility] ()

Performed by: (test Comment Issac Keenan, code = 46435-1) Cytotechnolo gist (ASCP)
<br/ >Performed by:
[facility])

Test Methodology: Comment This liqui d based (test code = ThinPrep(R) [place] was 75270-5) screened with t heuse of an image guided system.

Performed by:
[facility] ()

HPV Aptima (test Negative Negative This nuclei c acid code = 97328-8) amplificatio n test detects fourteen high-r iskHPV types (16,18,31,33,35 ,39,45,51,5 2,56,58,59,66,6 8) withoutdifferen tiation.

Performe d by:
[facility] ()

[facility] Description: IGP, Aptima HPV, rfx 16/18,047653-72-04 14:56:00 Test Item Value Reference Range Interpretation Comments Clinician provided Comment Z90.710Z1 3.1Z13.0Z11.4Z11. ICD10: (test code = 59Z12.31 A60.04Z01.411
74626-5)
Performed by:
[facility] ()

Performed by: (test Comment Issac Keenan, code = 63660-5) Cytotechnolo gist (ASCP)
<br/ >Performed by:
[facility] ()

Test Methodology: Comment This liqui d based (test code = ThinPrep(R) pap test was 52306-5) screened with t heuse of an image guided system.

Performed by:
[facility]

HPV Aptima (test Negative Negative This nuclei c acid code = 62765-1) amplificatio n test detects fourteen high-r iskHPV types (16,18,31,33,35 ,39,45,51,5 2,56,58,59,66,6 8) withoutdifferen tiation.

Performe d by:
[facility] ()

[facility] Description: IGP, Aptima HPV, rfx 16/18,975148-01-12 14:56:00 Test Item Value Reference Range Interpretation Comments Clinician provided Comment Z90.710Z1 3.1Z13.0Z11.4Z11. ICD10: (test code = 59Z12.31 A60.04Z01.411
44469-8)
Performed by:
[facility] ()

Performed by: (test Comment Issac Keenan, code = 72714-5) Cytotechnolo gist (ASCP)
<br/ >Performed by:
[facility] ()

Test Methodology: Comment This liqui d based (test code = ThinPrep(R) pap test was 61937-8) screened with t heuse of an image guided system.

Performed by:
[facility] ()

HPV Aptima (test Negative Negative This nuclei c acid code = 40968-0) amplificatio n test detects fourteen high-r iskHPV types (16,18,31,33,35 ,39,45,51,5 2,56,58,59,66,6 8) withoutdifferen tiation.

Performe d by:
[facility] ()

[facility] Description: IGP, Aptima HPV, rfx 16/18,094226-82-85 14:56:00 Test Item Value Reference Range Interpretation Comments Clinician provided Comment Z90.710Z1 3.1Z13.0Z11.4Z11. ICD10: (test code = 59Z12.31 A60.04Z01.411
87766-3)
Performed by:
[facility] ()

Performed by: (test Comment Issac Keenan, code = 11430-1) Cytotechnolo gist (ASCP)
<br/ >Performed by:
[facility])

Test Methodology: Comment This liqui d based (test code = ThinPrep(R) pap test was 18765-2) screened with t heuse of an image guided system.

Performed by:
[facility] ()

HPV Aptima (test Negative Negative This nuclei c acid code = 82850-2) amplificatio n test detects fourteen high-r iskHPV types (16,18,31,33,35 ,39,45,51,5 2,56,58,59,66,6 8) withoutdifferen tiation.

Performe d by:
[facility])

[facility] Description: IGP, Aptima HPV, rfx 16/18,020549-93-90 14:56:00 Test Item Value Reference Range Interpretation Comments Clinician provided Comment Z90.710Z1 3.1Z13.0Z11.4Z11. ICD10: (test code = 59Z12.31 A60.04Z01.411
86941-0)
Performed by:
[facility] ()

Performed by: (test Comment Issac Keenan, code = 02872-3) Cytotechnolo gist (ASCP)
<br/ >Performed by:
[facility] ()

Test Methodology: Comment This liqui d based (test code = ThinPrep(R) pap test was 85312-8) screened with t heuse of an image guided system.

Performed by:
[facility] ()

HPV Aptima (test Negative Negative This nuclei c acid code = 85943-5) amplificatio n test detects fourteen high-r iskHPV types (16,18,31,33,35 ,39,45,51,5 2,56,58,59,66,6 8) withoutdifferen tiation.

Performe d by:
[facility] ()

[facility] Description: IGP, Aptima HPV, rfx 16/18, 14:56:00 Test Item Value Reference Range Interpretation Comments Clinician provided Comment Z90.710Z1 3.1Z13.0Z11.4Z11. ICD10: (test code = 59Z12.31 A60.04Z01.411
01908-5)
Performed by:
[facility])

Performed by: (test Comment Issac Keenan, code = 91103-4) Cytotechnolo gist (ASCP)
<br/ >Performed by:
[facility] ()

Test Methodology: Comment This liqui d based (test code = ThinPrep(R) pap test was 97092-6) screened with t heuse of an image guided system.

Performed by:
[facility] ()

HPV Aptima (test Negative Negative This nuclei c acid code = 14734-0) amplificatio n test detects fourteen high-r iskHPV types (16,18,31,33,35 ,39,45,51,5 2,56,58,59,66,6 8) withoutdifferen tiation.

Performe d by:
[facility] ()

[facility] Description: IGP, Aptima HPV, rfx 16/18,307664-70-91 14:56:00 Test Item Value Reference Range Interpretation Comments Clinician provided Comment Z90.710Z1 3.1Z13.0Z11.4Z11. ICD10: (test code = 59Z12.31 A60.04Z01.411
59293-8)
Performed by:
[facility] ()

Performed by: (test Comment Issac Keenan, code = 28283-5) Cytotechnolo gist (ASCP)
<br/ >Performed by:
[facility] ()

Test Methodology: Comment This liqui d based (test code = ThinPrep(R) pap test was 23135-7) screened with t heuse of an image guided system.

Performed by:
[facility] ()

HPV Aptima (test Negative Negative This nuclei c acid code = 26575-6) amplificatio n test detects fourteen high-r iskHPV types (16,18,31,33,35 ,39,45,51,5 2,56,58,59,66,6 8) withoutdifferen tiation.

Performe d by:
[facility] ()

[facility] Description: IGP, Aptima HPV, rfx 16/18,048923-81-27 14:56:00 Test Item Value Reference Range Interpretation Comments Clinician provided Comment Z90.710Z1 3.1Z13.0Z11.4Z11. ICD10: (test code = 59Z12.31 A60.04Z01.411
42630-0)
Performed by:
[facility] ()

Performed by: (test Comment Issac Keenan, code = 63447-1) Cytotechnolo gist (ASCP)
<br/ >Performed by:
[facility] ()

Test Methodology: Comment This liqui d based (test code = ThinPrep(R) pap test was 76847-7) screened with t heuse of an image guided system.

Performed by:
[facility])

HPV Aptima (test Negative Negative This nuclei c acid code = 38722-6) amplificatio n test detects fourteen high-r iskHPV types (16,18,31,33,35 ,39,45,51,5 2,56,58,59,66,6 8) withoutdifferen tiation.

Performe d by:
[facility])

[facility] Description: IGP, Aptima HPV, rfx 16/18,449939-56-70 14:56:00 Test Item Value Reference Range Interpretation Comments Clinician provided Comment Z90.710Z1 3.1Z13.0Z11.4Z11. ICD10: (test code = 59Z12.31 A60.04Z01.411
92881-0)
Performed by:
[facility])

Performed by: (test Comment Issac Keenan, code = 92808-7) Cytotechnolo gist (ASCP)
<br/ >Performed by:
[facility])

Test Methodology: Comment This liqui d based (test code = ThinPrep(R) pap test was 39313-9) screened with t heuse of an image guided system.

Performed by:
[facility])

HPV Aptima (test Negative Negative This nuclei c acid code = 72615-4) amplificatio n test detects fourteen high-r iskHPV types (16,18,31,33,35 ,39,45,51,5 2,56,58,59,66,6 8) withoutdifferen tiation.

Performe d by:
[facility])

[facility] Description: IGP, Aptima HPV, rfx 16/18,967295-75-86 14:56:00 Test Item Value Reference Range Interpretation Comments Clinician provided Comment Z90.710Z1 3.1Z13.0Z11.4Z11. ICD10: (test code = 59Z12.31 A60.04Z01.411
85823-8)
Performed by:
[facility] ()

Performed by: (test Comment Issac Keenan, code = 08809-0) Cytotechnolo gist (ASCP)
<br/ >Performed by:
[facility] ()

Test Methodology: Comment Raissa liqui d based (test code = ThinPrep(R) pap test was 80906-6) screened with t heuse of an image guided system.

Performed by:
[facility] ()

HPV Aptima (test Negative Negative This nuclei c acid code = 17289-1) amplificatio n test detects fourteen high-r iskHPV types (16,18,31,33,35 ,39,45,51,5 2,56,58,59,66,6 8) withoutdifferen tiation.

Performe d by:
[facility] ()

[facility] Description: IGP, Aptima HPV, rfx 16/18,233405-60-93 14:56:00 Test Item Value Reference Range Interpretation Comments Clinician provided Comment Z90.710Z1 3.1Z13.0Z11.4Z11. ICD10: (test code = 59Z12.31 A60.04Z01.411
97796-0)
Performed by:
[facility] ()

Performed by: (test Comment Issac Keenan, code = 17522-1) Cytotechnolo gist (ASCP)
<br/ >Performed by:
[facility])

Test Methodology: Comment This liqui d based (test code = ThinPrep(R) pap test was 80280-5) screened with t heuse of an image guided system.

Performed by:
[facility])

HPV Aptima (test Negative Negative This nuclei c acid code = 84634-8) amplificatio n test detects fourteen high-r iskHPV types (16,18,31,33,35 ,39,45,51,5 2,56,58,59,66,6 8) withoutdifferen tiation.

Performe d by:
[facility])

[facility] Description: IGP, Aptima HPV, rfx 16/18,391056-46-52 14:56:00 Test Item Value Reference Range Interpretation Comments Clinician provided Comment Z90.710Z1 3.1Z13.0Z11.4Z11. ICD10: (test code = 59Z12.31 A60.04Z01.411
67836-6)
Performed by:
[facility])

Performed by: (test Comment Issac Keenan, code = 02833-4) Cytotechnolo gist (ASCP)
<br/ >Performed by:
[facility])

Test Methodology: Comment This liqui d based (test code = ThinPrep(R) pap test was 84940-7) screened with t heuse of an image guided system.

Performed by:
[facility])

HPV Aptima (test Negative Negative This nuclei c acid code = 90953-0) amplificatio n test detects fourteen high-r iskHPV types (16,18,31,33,35 ,39,45,51,5 2,56,58,59,66,6 8) withoutdifferen tiation.

Performe d by:
[facility])

[facility] Description: IGP, Aptima HPV, rfx 16/18,630014-58-31 14:56:00 Test Item Value Reference Range Interpretation Comments Clinician provided Comment Z90.710Z1 3.1Z13.0Z11.4Z11. ICD10: (test code = 59Z12.31 A60.04Z01.411
56480-9)
Performed by:
[facility] ()

Performed by: (test Comment Issac Ree, code = 93378-5) Cytotechnolo gist (ASCP)
<br/ >Performed by:
[facility])

Test Methodology: Comment This liqui d based (test code = ThinPrep(R) [place] 89407-7) screened with t heuse of an image guided system.

Performed by:
[facility])

HPV Aptima (test Negative Negative This nuclei c acid code = 66354-2) amplificatio n test detects fourteen high-r iskHPV types (16,18,31,33,35 ,39,45,51,5 2,56,58,59,66,6 8) withoutdifferen tiation.

Performe d by:
[facility] ()

[facility] Description: Herpes simplex virus identified in Unspecified specimen by Organism specific lkmsosd3245-48-84 21:17:00 Test Item Value Reference Range Interpretation Comments HSV Culture Without Typing (test Negative code = 5859-4) [facility] Description: Herpes simplex virus identified in Unspecified specimen by Organism specific zmaiili6861-63-15 21:17:00 Test Item Value Reference Range Interpretation Comments HSV Culture Without Typing (test Negative code = 5859-4) [facility] Description: Herpes simplex virus identified in Unspecified specimen by Organism specific vxwynkk2697-00-65 21:17:00 Test Item Value Reference Range Interpretation Comments HSV Culture Without Typing (test Negative code = 5859-4) [facility] Description: Herpes simplex virus identified in Unspecified specimen by Organism specific grgyqsz0093-35-85 21:17:00 Test Item Value Reference Range Interpretation Comments HSV Culture Without Typing (test Negative code = 5859-4) [facility] Description: Herpes simplex virus identified in Unspecified specimen by Organism specific pdosfor7111-34-53 21:17:00 Test Item Value Reference Range Interpretation Comments HSV Culture Without Typing (test Negative code = 5859-4) [facility] Description: Herpes simplex virus identified in Unspecified specimen by Organism specific jdljcwv4058-84-69 21:17:00 Test Item Value Reference Range Interpretation Comments HSV Culture Without Typing (test Negative code = 5859-4) [facility] Description: Herpes simplex virus identified in Specimen by Organism specific txozlnj7333-56-63 21:17:00 Test Item Value Reference Range Interpretation Comments HSV Culture Without Typing (test Negative code = 5859-4) [facility] Description: Herpes simplex virus identified in Specimen by Organism specific qtbxvap1096-35-82 21:17:00 Test Item Value Reference Range Interpretation Comments HSV Culture Without Typing (test Negative code = 5859-4) [facility] Description: Herpes simplex virus identified in Specimen by Organism specific bxmkhen4527-56-95 21:17:00 Test Item Value Reference Range Interpretation Comments HSV Culture Without Typing (test Negative code = 5859-4) [facility] Description: Herpes simplex virus identified in Specimen by Organism specific uiimdtk2675-17-96 21:17:00 Test Item Value Reference Range Interpretation Comments HSV Culture Without Typing (test Negative code = 5859-4) [facility] Description: Herpes simplex virus identified in Specimen by Organism specific xkqbket1421-32-27 21:17:00 Test Item Value Reference Range Interpretation Comments HSV Culture Without Typing (test Negative code = 5859-4) [facility] Description: Herpes simplex virus identified in Specimen by Organism specific lhorqpz7763-98-26 21:17:00 Test Item Value Reference Range Interpretation Comments HSV Culture Without Typing (test Negative code = 5859-4) [facility] Description: Herpes simplex virus identified in Specimen by Organism specific bkqcexv8942-85-33 21:17:00 Test Item Value Reference Range Interpretation Comments HSV Culture Without Typing (test Negative code = 5859-4) [facility] Description: Herpes simplex virus identified in Specimen by Organism specific rcbtsuv4504-65-72 21:17:00 Test Item Value Reference Range Interpretation Comments HSV Culture Without Typing (test Negative code = 5859-4) [facility] Description: Herpes simplex virus identified in Specimen by Organism specific msroyrd7060-85-51 21:17:00 Test Item Value Reference Range Interpretation Comments HSV Culture Without Typing (test Negative code = 5859-4) [facility] Description: Herpes simplex virus identified in Specimen by Organism specific gnzdzjz9685-36-25 21:17:00 Test Item Value Reference Range Interpretation Comments HSV Culture Without Typing (test Negative code = 5859-4) [facility] Description: Herpes simplex virus identified in Specimen by Organism specific zbphobt7622-63-68 21:17:00 Test Item Value Reference Range Interpretation Comments HSV Culture Without Typing (test Negative code = 5859-4) [facility] Description: Herpes simplex virus identified in Specimen by Organism specific zlfztvp6944-94-15 21:17:00 Test Item Value Reference Range Interpretation Comments HSV Culture Without Typing (test Negative code = 5859-4) [facility] Description: Herpes simplex virus identified in Specimen by Organism specific aydudzw7781-03-74 21:17:00 Test Item Value Reference Range Interpretation Comments HSV Culture Without Typing (test Negative code = 5859-4) [facility] Description: HSV 1 and 2-Spec Ab, IgG w/[id number] 07:44:00 Test Item Value Reference Range Interpretation Comments HSV 1 IgG, Type Spec (test code = 53.20 index 0.00-0.90 H 5206-8) HSV 2 IgG, Type Spec (test code = <0.91 0.00-0.90 5209-2) [facility] Description: HSV 1 and 2-Spec Ab, IgG w/Ghl1644-66-17 07:44:00 Test Item Value Reference Range Interpretation Comments HSV 1 IgG, Type Spec (test code = 53.20 index 0.00-0.90 H 5206-8) HSV 2 IgG, Type Spec (test code = <0.91 0.00-0.90 5209-2) [facility] Description: HSV 1 and 2-Spec Ab, IgG w/Yis5461-93-08 07:44:00 Test Item Value Reference Range Interpretation Comments HSV 1 IgG, Type Spec (test code = 53.20 index 0.00-0.90 H 5206-8) HSV 2 IgG, Type Spec (test code = <0.91 0.00-0.90 5209-2) [facility] Description: HSV 1 and 2-Spec Ab, IgG w/[id number] 07:44:00 Test Item Value Reference Range Interpretation Comments HSV 1 IgG, Type Spec (test code = 53.20 index 0.00-0.90 H 5206-8) HSV 2 IgG, Type Spec (test code = <0.91 0.00-0.90 5209-2) [facility] Description: HSV 1 and 2-Spec Ab, IgG w/[id number] 07:44:00 Test Item Value Reference Range Interpretation Comments HSV 1 IgG, Type Spec (test code = 53.20 index 0.00-0.90 H 5206-8) HSV 2 IgG, Type Spec (test code = <0.91 0.00-0.90 5209-2) [facility] Description: HSV 1 and 2-Spec Ab, IgG w/[id number] 07:44:00 Test Item Value Reference Range Interpretation Comments HSV 1 IgG, Type Spec (test code = 53.20 index 0.00-0.90 H 5206-8) HSV 2 IgG, Type Spec (test code = <0.91 0.00-0.90 5209-2) [facility] Description: HSV 1 and 2-Spec Ab, IgG w/[id number] 07:44:00 Test Item Value Reference Range Interpretation Comments HSV 1 IgG, Type Spec (test code = 53.20 index 0.00-0.90 H 5206-8) HSV 2 IgG, Type Spec (test code = <0.91 0.00-0.90 5209-2) [facility] Description: HSV 1 and 2-Spec Ab, IgG w/[id number] 07:44:00 Test Item Value Reference Range Interpretation Comments HSV 1 IgG, Type Spec (test code = 53.20 index 0.00-0.90 H 5206-8) HSV 2 IgG, Type Spec (test code = <0.91 0.00-0.90 5209-2) [facility] Description: HSV 1 and 2-Spec Ab, IgG w/[id number] 07:44:00 Test Item Value Reference Range Interpretation Comments HSV 1 IgG, Type Spec (test code = 53.20 index 0.00-0.90 H 5206-8) HSV 2 IgG, Type Spec (test code = <0.91 0.00-0.90 5209-2) [facility] Description: HSV 1 and 2-Spec Ab, IgG w/[id number] 07:44:00 Test Item Value Reference Range Interpretation Comments HSV 1 IgG, Type Spec (test code = 53.20 index 0.00-0.90 H 5206-8) HSV 2 IgG, Type Spec (test code = <0.91 0.00-0.90 5209-2) [facility] Description: HSV 1 and 2-Spec Ab, IgG w/[id number] 07:44:00 Test Item Value Reference Range Interpretation Comments HSV 1 IgG, Type Spec (test code = 53.20 index 0.00-0.90 H 5206-8) HSV 2 IgG, Type Spec (test code = <0.91 0.00-0.90 5209-2) [facility] Description: HSV 1 and 2-Spec Ab, IgG w/[id number] 07:44:00 Test Item Value Reference Range Interpretation Comments HSV 1 IgG, Type Spec (test code = 53.20 index 0.00-0.90 H 5206-8) HSV 2 IgG, Type Spec (test code = <0.91 0.00-0.90 5209-2) [facility] Description: HSV 1 and 2-Spec Ab, IgG w/[id number] 07:44:00 Test Item Value Reference Range Interpretation Comments HSV 1 IgG, Type Spec (test code = 53.20 index 0.00-0.90 H 5206-8) HSV 2 IgG, Type Spec (test code = <0.91 0.00-0.90 5209-2) [facility] Description: HSV 1 and 2-Spec Ab, IgG w/[id number] 07:44:00 Test Item Value Reference Range Interpretation Comments HSV 1 IgG, Type Spec (test code = 53.20 index 0.00-0.90 H 5206-8) HSV 2 IgG, Type Spec (test code = <0.91 0.00-0.90 5209-2) [facility] Description: HSV 1 and 2-Spec Ab, IgG w/[id number] 07:44:00 Test Item Value Reference Range Interpretation Comments HSV 1 IgG, Type Spec (test code = 53.20 index 0.00-0.90 H 5206-8) HSV 2 IgG, Type Spec (test code = <0.91 0.00-0.90 5209-2) [facility] Description: HSV 1 and 2-Spec Ab, IgG w/[id number] 07:44:00 Test Item Value Reference Range Interpretation Comments HSV 1 IgG, Type Spec (test code = 53.20 index 0.00-0.90 H 5206-8) HSV 2 IgG, Type Spec (test code = <0.91 0.00-0.90 5209-2) [facility] Description: HSV 1 and 2-Spec Ab, IgG w/[id number] 07:44:00 Test Item Value Reference Range Interpretation Comments HSV 1 IgG, Type Spec (test code = 53.20 index 0.00-0.90 H 5206-8) HSV 2 IgG, Type Spec (test code = <0.91 0.00-0.90 5209-2) [facility] Description: HSV 1 and 2-Spec Ab, IgG w/[id number] 07:44:00 Test Item Value Reference Range Interpretation Comments HSV 1 IgG, Type Spec (test code = 53.20 index 0.00-0.90 H 5206-8) HSV 2 IgG, Type Spec (test code = <0.91 0.00-0.90 5209-2) [facility] Description: HSV 1 and 2-Spec Ab, IgG w/[id number] 07:44:00 Test Item Value Reference Range Interpretation Comments HSV 1 IgG, Type Spec (test code = 53.20 index 0.00-0.90 H 5206-8) HSV 2 IgG, Type Spec (test code = <0.91 0.00-0.90 5209-2) [facility] Description: HSV 1 and 2-Spec Ab, IgG w/[id number] 07:44:00 Test Item Value Reference Range Interpretation Comments HSV 1 IgG, Type Spec (test code = 53.20 index 0.00-0.90 H 5206-8) HSV 2 IgG, Type Spec (test code = <0.91 0.00-0.90 5209-2) [facility] Description: HSV 1 and 2-Spec Ab, IgG w/[id number] 07:44:00 Test Item Value Reference Range Interpretation Comments HSV 1 IgG, Type Spec (test code = 53.20 index 0.00-0.90 H 5206-8) HSV 2 IgG, Type Spec (test code = <0.91 0.00-0.90 5209-2) [facility] Description: HIV 1+2 Ab+HIV1 p24 Ag [Presence] in Serum or Plasma by Qckogkoydbd5551-47-02 05:58:00 Test Item Value Reference Range Interpretation Comments HIV Screen 4th Generation wRfx Non Reactive Non Reactive (test code = 33494-0) [facility] Description: HIV 1+2 Ab+HIV1 p24 Ag [Presence] in Serum or Plasma by Musplvgcsdz8798-57-20 05:58:00 Test Item Value Reference Range Interpretation Comments HIV Screen 4th Generation wRfx Non Reactive Non Reactive (test code = 18351-5) [facility] Description: HIV 1+2 Ab+HIV1 p24 Ag [Presence] in Serum or Plasma by Jbadefqmzaq9299-05-07 05:58:00 Test Item Value Reference Range Interpretation Comments HIV Screen 4th Generation wRfx Non Reactive Non Reactive (test code = 53492-0) [facility] Description: HIV 1+2 Ab+HIV1 p24 Ag [Presence] in Serum or Plasma by Ssodzkhsuzp1864-11-17 05:58:00 Test Item Value Reference Range Interpretation Comments HIV Screen 4th Generation wRfx Non Reactive Non Reactive (test code = 85326-9) [facility] Description: HIV 1+2 Ab+HIV1 p24 Ag [Presence] in Serum or Plasma by Gfxpaqrldpy6827-68-80 05:58:00 Test Item Value Reference Range Interpretation Comments HIV Screen 4th Generation wRfx Non Reactive Non Reactive (test code = 91218-7) [facility] Description: HIV 1+2 Ab+HIV1 p24 Ag [Presence] in Serum or Plasma by Rldzvrvlclh3946-47-31 05:58:00 Test Item Value Reference Range Interpretation Comments HIV Screen 4th Generation wRfx Non Reactive Non Reactive (test code = 24077-7) [facility] Description: HIV 1+2 Ab+HIV1 p24 Ag [Presence] in Serum or Plasma by Ahfqvpiogxy1498-78-89 05:58:00 Test Item Value Reference Range Interpretation Comments HIV Screen 4th Generation wRfx Non Reactive Non Reactive (test code = 11654-4) [facility] Description: HIV 1+2 Ab+HIV1 p24 Ag [Presence] in Serum or Plasma by Umegfcqihsq7276-31-51 05:58:00 Test Item Value Reference Range Interpretation Comments HIV Screen 4th Generation wRfx Non Reactive Non Reactive (test code = 50007-6) [facility] Description: HIV 1+2 Ab+HIV1 p24 Ag [Presence] in Serum or Plasma by Yssijxborll9396-77-24 05:58:00 Test Item Value Reference Range Interpretation Comments HIV Screen 4th Generation wRfx Non Reactive Non Reactive (test code = 67635-3) [facility] Description: HIV 1+2 Ab+HIV1 p24 Ag [Presence] in Serum or Plasma by Bjzeqknfsmk4343-03-54 05:58:00 Test Item Value Reference Range Interpretation Comments HIV Screen 4th Generation wRfx Non Reactive Non Reactive (test code = 33751-4) [facility] Description: HIV 1+2 Ab+HIV1 p24 Ag [Presence] in Serum or Plasma by [id number] 05:58:00 Test Item Value Reference Range Interpretation Comments HIV Screen 4th Generation wRfx Non Reactive Non Reactive (test code = 54788-7) [facility] Description: HIV 1+2 Ab+HIV1 p24 Ag [Presence] in Serum or Plasma by [id number] 05:58:00 Test Item Value Reference Range Interpretation Comments HIV Screen 4th Generation wRfx Non Reactive Non Reactive (test code = 26644-5) [facility] Description: HIV 1+2 Ab+HIV1 p24 Ag [Presence] in Serum or Plasma by Amtpdchmqcu3609-30-61 05:58:00 Test Item Value Reference Range Interpretation Comments HIV Screen 4th Generation wRfx Non Reactive Non Reactive (test code = 37834-1) [facility] Description: HIV 1+2 Ab+HIV1 p24 Ag [Presence] in Serum or Plasma by [id number] 05:58:00 Test Item Value Reference Range Interpretation Comments HIV Screen 4th Generation wRfx Non Reactive Non Reactive (test code = 03166-8) [facility] Description: HIV 1+2 Ab+HIV1 p24 Ag [Presence] in Serum or Plasma by Kfzmkqfriaw2444-76-20 05:58:00 Test Item Value Reference Range Interpretation Comments HIV Screen 4th Generation wRfx Non Reactive Non Reactive (test code = 20187-6) [facility] Description: HIV 1+2 Ab+HIV1 p24 Ag [Presence] in Serum or Plasma by [id number] 05:58:00 Test Item Value Reference Range Interpretation Comments HIV Screen 4th Generation wRfx Non Reactive Non Reactive (test code = 47293-0) [facility] Description: HIV 1+2 Ab+HIV1 p24 Ag [Presence] in Serum or Plasma by Medtllxqdwo6731-28-28 05:58:00 Test Item Value Reference Range Interpretation Comments HIV Screen 4th Generation wRfx Non Reactive Non Reactive (test code = 77653-0) [facility] Description: HIV 1+2 Ab+HIV1 p24 Ag [Presence] in Serum or Plasma by Fclyitvcmsf5817-37-23 05:58:00 Test Item Value Reference Range Interpretation Comments HIV Screen 4th Generation wRfx Non Reactive Non Reactive (test code = 11442-4) [facility] Description: HIV 1+2 Ab+HIV1 p24 Ag [Presence] in Serum or Plasma by Vmbobwzgudm2687-64-05 05:58:00 Test Item Value Reference Range Interpretation Comments HIV Screen 4th Generation wRfx Non Reactive Non Reactive (test code = 88998-8) [facility] Description: HIV 1+2 Ab+HIV1 p24 Ag [Presence] in Serum or Plasma by Yaryjnmcxbi2989-45-55 05:58:00 Test Item Value Reference Range Interpretation Comments HIV Screen 4th Generation wRfx Non Reactive Non Reactive (test code = 18931-6) [facility] Description: HIV 1+2 Ab+HIV1 p24 Ag [Presence] in Serum or Plasma by Jqdefgtuiez0752-16-16 05:58:00 Test Item Value Reference Range Interpretation Comments HIV Screen 4th Generation wRfx Non Reactive Non Reactive (test code = 46406-8) [facility] Description: 25-hydroxyvitamin D3 [Mass/volume] in Serum or [id number] 05:40:00 Test Item Value Reference Range Interpretation Comments Vitamin D, 4.2 ng/mL 30.0-100.0 L Vitamin D defic iency has 25-Hydroxy (test been define d by the code = 69531-3) [place] [employer] and an Endocrine So [facility] practice guidel ine as alevel of serum 25-OH vitamin D less than 20 ng/mL (1,2).The Endocrine Society went on to further define vitamin Dinsufficiency as a level between 21 and 29 ng/mL (2).1. IOM (Ins titute of Medicine). 2010 . Dietary reference intak es for calcium and D. [place]: [employer] .2. Beverly Villavicencio, Shadia HERRMANN, et al. Evaluation, treatment, and prevention of vitamin D de ficiency: an Endocrine So [facility] clinical practi ce guideline. JCEM . 2010; 96(7):1911-30.& lt;br/>
Performed by:
[facility] ()

[facility] Description: 25-hydroxyvitamin D3 [Mass/volume] in Serum or [id number] 05:40:00 Test Item Value Reference Range Interpretation Comments Vitamin D, 4.2 ng/mL 30.0-100.0 L Vitamin D defic iency has 25-Hydroxy (test been define d by the code = 98080-0) [place] [employer] [facility] Endocrine So [facility] guidel ine as alevel of serum 25-OH vitamin D less than 20 ng/mL (1,2).The Endocrine Society went on to further define vitamin Dinsufficiency as a level between 21 and 29 ng/mL (2).1. IOM (Ins titute of Medicine). 2010 . Dietary reference intak es for calcium and D. [place]: [employer] .2. Beverly Villavicencio, Shadia HERRMANN, et al. Evaluation, treatment, and prevention of vitamin D de ficiency: an Endocrine So [facility] clinical practi ce guideline. EM . 2010; 96(7):191-.& lt;br/>
Performed by:
[facility] ([place])

[facility] Description: 25-hydroxyvitamin D3 [Mass/volume] in Serum or [id number] 05:40:00 Test Item Value Reference Range Interpretation Comments Vitamin D, 4.2 ng/mL 30.0-100.0 L Vitamin D defic iency has 25-Hydroxy (test been define d by the code = 55562-9) [place] [employer] [facility] an Endocrine So [facility] practice guidel ine as alevel of serum 25-OH vitamin D less than 20 ng/mL (1,2).The Endocrine Society went on to further define vitamin Dinsufficiency as a level between 21 and 29 ng/mL (2).1. IOM (Ins titute of Medicine). 2010 . Dietary reference intak es for calcium and D. [place]: [employer] .2. Beverly Villavicencio, Shadia HERRMANN, et al. Evaluation, treatment, and prevention of vitamin D de ficiency: an Endocrine So [facility] clinical practi ce guideline. [facility] . 2010; 96(7):1911-30.& lt;br/>
Performed by:
[facility] [place] [facility] ([place])

[facility] Description: 25-hydroxyvitamin D3 [Mass/volume] in Serum or [id number] 05:40:00 Test Item Value Reference Range Interpretation Comments Vitamin D, 4.2 ng/mL 30.0-100.0 L Vitamin D defic iency has 25-Hydroxy (test been define d by the code = 16418-0) [place] [employer] [facility] an Endocrine So [facility] practice guidel ine as alevel of serum 25-OH vitamin D less than 20 ng/mL (1,2).The Endocrine Society went on to further define vitamin Dinsufficiency as a level between 21 and 29 ng/mL (2).1. IOM (Ins titute of Medicine). 2010 . Dietary reference intak es for calcium and D. [facility]: [employer] .2. Beverly Villavicencio, Shadia HERRMANN, et al. Evaluation, treatment, and prevention of vitamin D de ficiency: an Endocrine So [facility] clinical practi ce guideline. EM . 2010; 96(7):191-.& lt;br/>
Performed by:
[facility] ()

[facility] Description: 25-hydroxyvitamin D3 [Mass/volume] in Serum or [id number] 05:40:00 Test Item Value Reference Range Interpretation Comments Vitamin D, 4.2 ng/mL 30.0-100.0 L Vitamin D defic iency has 25-Hydroxy (test been define d by the code = 77043-4) [place] [employer] [facility] an Endocrine So [facility] practice guidel ine as alevel of serum 25-OH vitamin D less than 20 ng/mL (1,2).The Endocrine Society went on to further define vitamin Dinsufficiency as a level between 21 and 29 ng/mL (2).1. IOM (Ins titute of Medicine). 2010 . Dietary reference intak es for calcium and D. [facility]: [employer] .2. Beverly Villavicencio, Shadia HERRMANN, et al. Evaluation , treatment, and prevention of vitamin D de ficiency: an Endocrine So [facility] clinical practi ce guideline. EM . 2010; 96(7):1911-30.& lt;br/>
Performed by:
[facility] ()

[facility] Description: 25-hydroxyvitamin D3 [Mass/volume] in Serum or [id number] 05:40:00 Test Item Value Reference Range Interpretation Comments Vitamin D, 4.2 ng/mL 30.0-100.0 L Vitamin D defic iency has 25-Hydroxy (test been define d by the code = 81955-8) [place] [employer] [facility] Endocrine So [facility] guidel ine as alevel of serum 25-OH vitamin D less than 20 ng/mL (1,2).The Endocrine Society went on to further define vitamin Dinsufficiency as a level between 21 and 29 ng/mL (2).1. IOM (Ins titute of Medicine). 2010 . Dietary reference intak es for calcium and D. [facility]: [employer] .2. Beverly Villavicencio, Shadia HERRMANN, et al. Evaluation, treatment, and prevention of vitamin D de ficiency: an Endocrine So [facility] clinical practi ce guideline. JCEM . 2010; 96(7):1911-30.& lt;br/>
Performed by:
[facility] ([place])

[facility] Description: 25-hydroxyvitamin D3 [Mass/volume] in Serum or [id number] 05:40:00 Test Item Value Reference Range Interpretation Comments Vitamin D, 4.2 ng/mL 30.0-100.0 L Vitamin D defic iency has 25-Hydroxy (test been define d by the code = 99298-3) [place] [employer] [facility] an Endocrine So [facility] practice guidel ine as alevel of serum 25-OH vitamin D less than 20 ng/mL (1,2).The Endocrine Society went on to further define vitamin Dinsufficiency as a level between 21 and 29 ng/mL (2).1. IOM (Ins titute of Medicine). 2010 . Dietary reference intak es for calcium and D. [facility]: [employer] .2. Beverly Villavicencio, Shadia HERRMANN, et al. Evaluation, treatment, and prevention of vitamin D de ficiency: an Endocrine So [facility] clinical practi ce guideline. JCEM . 2010; 96(7):191-30.& lt;br/>
Performed by:
[facility] ([place])

[facility] Description: 25-hydroxyvitamin D3 [Mass/volume] in Serum or [id number] 05:40:00 Test Item Value Reference Range Interpretation Comments Vitamin D, 4.2 ng/mL 30.0-100.0 L Vitamin D defic iency has 25-Hydroxy (test been define d by the code = 00057-7) [place] [employer] [facility] Endocrine So [facility] guidel ine as alevel of serum 25-OH vitamin D less than 20 ng/mL (1,2).The Endocrine Society went on to further define vitamin Dinsufficiency as a level between 21 and 29 ng/mL (2).1. IOM (Ins titute of Medicine). 2010 . Dietary reference intak es for calcium and D. [facility]: [employer] .2. Beverly Villavicencio, Shadia HERRMANN, et al. Evaluation, treatment, and prevention of vitamin D de ficiency: an Endocrine So [facility] clinical practi ce guideline. JCEM . 2010; 96(7):191-.& lt;br/>
Performed by:
[facility] ([place])

[facility] Description: 25-hydroxyvitamin D3 [Mass/volume] in Serum or [id number] 05:40:00 Test Item Value Reference Range Interpretation Comments Vitamin D, 4.2 ng/mL 30.0-100.0 L Vitamin D defic iency has 25-Hydroxy (test been define d by the code = 45028-1) [place] [employer] [facility] an Endocrine So [facility] practice guidel ine as alevel of serum 25-OH vitamin D less than 20 ng/mL (1,2).The Endocrine Society went on to further define vitamin Dinsufficiency as a level between 21 and 29 ng/mL (2).1. IOM (Ins titute of Medicine). 2010 . Dietary reference intak es for calcium and D. [facility]: [employer] .2. Beverly Villavicencio, Shadia HERRMANN, et al. Evaluation, treatment, and prevention of vitamin D de ficiency: an Endocrine So [facility] clinical practi ce guideline. JCEM . 2010; 96(7):191-.& lt;br/>
Performed by:
[facility] ([place])

[facility] Description: 25-hydroxyvitamin D3 [Mass/volume] in Serum or [id number] 05:40:00 Test Item Value Reference Range Interpretation Comments Vitamin D, 4.2 ng/mL 30.0-100.0 L Vitamin D defic iency has 25-Hydroxy (test been define d by the code = 71428-6) [place] [employer] [facility] Endocrine So [facility] guidel ine as alevel of serum 25-OH vitamin D less than 20 ng/mL (1,2).The Endocrine Society went on to further define vitamin Dinsufficiency as a level between 21 and 29 ng/mL (2).1. IOM (Ins titute of Medicine). 2010 . Dietary reference intak es for calcium and D. [facility]: [employer] .2. Beverly Villavicencio, Shadia HERRMANN, et al. Evaluation, treatment, and prevention of vitamin D de ficiency: an Endocrine So [facility] clinical practi ce guideline. JCEM . 2010; 96(7):1911-30.& lt;br/>
Performed by:
[facility] ()

[facility] Description: 25-hydroxyvitamin D3 [Mass/volume] in Serum or [id number] 05:40:00 Test Item Value Reference Range Interpretation Comments Vitamin D, 4.2 ng/mL 30.0-100.0 L Vitamin D defic iency has 25-Hydroxy (test been define d by the code = 19528-3) [place] [employer] [facility] an Endocrine So [facility] practice guidel ine as alevel of serum 25-OH vitamin D less than 20 ng/mL (1,2).The Endocrine Society went on to further define vitamin Dinsufficiency as a level between 21 and 29 ng/mL (2).1. IOM (Ins titute of Medicine). 2010 . Dietary reference intak es for calcium and D. [facility]: [employer] .2. Beverly Villavicencio, Shadia HERRMANN, et al. Evaluation, treatment, and prevention of vitamin D de ficiency: an Endocrine So [facility] clinical practi ce guideline. JCEM . 2010; 96(7):1911-30.& lt;br/>
Performed by:
[facility] ([place])

[facility] Description: 25-hydroxyvitamin D3 [Mass/volume] in Serum or [id number] 05:40:00 Test Item Value Reference Range Interpretation Comments Vitamin D, 4.2 ng/mL 30.0-100.0 L Vitamin D defic iency has 25-Hydroxy (test been define d by the code = 51212-8) [place] [employer] [facility] an Endocrine So [facility] practice guidel ine as alevel of serum 25-OH vitamin D less than 20 ng/mL (1,2).The Endocrine Society went on to further define vitamin Dinsufficiency as a level between 21 and 29 ng/mL (2).1. IOM (Ins titute of Medicine). 2010 . Dietary reference intak es for calcium and D. [place]: [employer] .2. Beverly Villavicencio, Shadia HERRMANN, et al. Evaluation, treatment, and prevention of vitamin D de ficiency: an Endocrine So [facility] clinical practi ce guideline. JCEM . 2010; 96(7):1911-30.& lt;br/>
Performed by:
[facility] ([place])

[facility] Description: 25-hydroxyvitamin D3 [Mass/volume] in Serum or [id number] 05:40:00 Test Item Value Reference Range Interpretation Comments Vitamin D, 4.2 ng/mL 30.0-100.0 L Vitamin D defic iency has 25-Hydroxy (test been define d by the code = 96746-7) [place] [employer] [facility] an Endocrine So [facility] practice guidel ine as alevel of serum 25-OH vitamin D less than 20 ng/mL (1,2).The Endocrine Society went on to further define vitamin Dinsufficiency as a level between 21 and 29 ng/mL (2).1. IOM (Ins titute of Medicine). 2010 . Dietary reference intak es for calcium and D. [place]: [employer] .2. Beverly Villavicencio, Shadia HERRMANN, et al. Evaluation , treatment, and prevention of vitamin D de ficiency: an Endocrine So [facility] clinical practi ce guideline. EM . 2010; 96(7):191-.& lt;br/>
Performed by:
[facility] ([place])

[facility] Description: 25-hydroxyvitamin D3 [Mass/volume] in Serum or [id number] 05:40:00 Test Item Value Reference Range Interpretation Comments Vitamin D, 4.2 ng/mL 30.0-100.0 L Vitamin D defic iency has 25-Hydroxy (test been define d by the code = 89546-2) [place] [employer] [facility] an Endocrine So [facility] practice guidel ine as alevel of serum 25-OH vitamin D less than 20 ng/mL (1,2).The Endocrine Society went on to further define vitamin Dinsufficiency as a level between 21 and 29 ng/mL (2).1. IOM (Ins titute of Medicine). 2010 . Dietary reference intak es for calcium and D. [place]: [employer] .2. Lance MF, Beverly KAPOOR, Shadia mckeon HERRMANN, et al. Evaluation, treatment, and prevention of vitamin D de ficiency: an Endocrine So [facility] clinical practi ce guideline. EM . 2010; 96(7):1911-30.& lt;br/>
Performed by:
[facility] ([place])

[facility] Description: 25-hydroxyvitamin D3 [Mass/volume] in Serum or [id number] 05:40:00 Test Item Value Reference Range Interpretation Comments Vitamin D, 4.2 ng/mL 30.0-100.0 L Vitamin D defic iency has 25-Hydroxy (test been define d by the code = 78036-9) [place] [employer] [facility] Endocrine So [facility] practice guidel ine as alevel of serum 25-OH vitamin D less than 20 ng/mL (1,2).The Endocrine Society went on to further define vitamin Dinsufficiency as a level between 21 and 29 ng/mL (2).1. IOM (Ins titute of Medicine). 2010 . Dietary reference intak es for calcium and D. [facility]: [employer] .2. Beverly Villavicencio, Shadia HERRMANN, et al. Evaluation, treatment, and prevention of vitamin D de ficiency: an Endocrine So [facility] clinical practi ce guideline. JCEM . 2010; 96(7):1911-30.& lt;br/>
Performed by:
[facility] ()

[facility] Description: 25-hydroxyvitamin D3 [Mass/volume] in Serum or [id number] 05:40:00 Test Item Value Reference Range Interpretation Comments Vitamin D, 4.2 ng/mL 30.0-100.0 L Vitamin D defic iency has 25-Hydroxy (test been define d by the code = 70174-0) [place] [employer] and an Endocrine So [facility] practice guidel ine as alevel of serum 25-OH vitamin D less than 20 ng/mL (1,2).The Endocrine Society went on to further define vitamin Dinsufficiency as a level between 21 and 29 ng/mL (2).1. IOM (Ins titute of Medicine). 2010 . Dietary reference intak es for calcium and D. [facility]: [employer] .2. Beverly Villavicencio, Shadia HERRMANN, et al. Evaluation, treatment, and prevention of vitamin D de ficiency: an Endocrine So [facility] clinical practi ce guideline. EM . 2010; 96(7):1911-30.& lt;br/>
Performed by:
[facility] [place] [facility] ()

[facility] Description: 25-hydroxyvitamin D3 [Mass/volume] in Serum or [id number] 05:40:00 Test Item Value Reference Range Interpretation Comments Vitamin D, 4.2 ng/mL 30.0-100.0 L Vitamin D defic iency has 25-Hydroxy (test been define d by the code = 96173-7) [place] [employer] and an Endocrine So [facility] practice guidel ine as alevel of serum 25-OH vitamin D less than 20 ng/mL (1,2).The Endocrine Society went on to further define vitamin Dinsufficiency as a level between 21 and 29 ng/mL (2).1. IOM (Ins titute of Medicine). 2010 . Dietary reference intak es for calcium and D. [facility]: [employer] .2. Beverly Villavicencio, Shadia HERRMANN, et al. Evaluation, treatment, and prevention of vitamin D de ficiency: an Endocrine So [facility] clinical practi ce guideline. JCEM . 2010; 96(7):1911-30.& lt;br/>
Performed by:
[facility] ([place])

[facility] Description: 25-hydroxyvitamin D3 [Mass/volume] in Serum or [id number] 05:40:00 Test Item Value Reference Range Interpretation Comments Vitamin D, 4.2 ng/mL 30.0-100.0 L Vitamin D defic iency has 25-Hydroxy (test been define d by the code = 78988-5) [place] [employer] and an Endocrine So [facility] practice guidel ine as alevel of serum 25-OH vitamin D less than 20 ng/mL (1,2).The Endocrine Society went on to further define vitamin Dinsufficiency as a level between 21 and 29 ng/mL (2).1. IOM (Ins titute of Medicine). 2010 . Dietary reference intak es for calcium and D. [facility]: [employer] .2. Beverly Villavicencio, Shadia HERRMANN, et al. Evaluation, treatment, and prevention of vitamin D de ficiency: an Endocrine So [facility] clinical practi ce guideline. JCEM . 2010; 96(7):1911-30.& lt;br/>
Performed by:
[facility] ([place])

[facility] Description: 25-hydroxyvitamin D3 [Mass/volume] in Serum or [id number] 05:40:00 Test Item Value Reference Range Interpretation Comments Vitamin D, 4.2 ng/mL 30.0-100.0 L Vitamin D defic iency has 25-Hydroxy (test been define d by the code = 81028-4) [place] [employer] [facility] Endocrine So [facility] guidel ine as alevel of serum 25-OH vitamin D less than 20 ng/mL (1,2).The Endocrine Society went on to further define vitamin Dinsufficiency as a level between 21 and 29 ng/mL (2).1. IOM (Ins titute of Medicine). 2010 . Dietary reference intak es for calcium and D. [facility]: [employer] .2. Beverly Villavicencio, Shadia HERRMANN, et al. Evaluation, treatment, and prevention of vitamin D de ficiency: an Endocrine So [facility] clinical practi ce guideline. JCEM . 2010; 96(7):191-.& lt;br/>
Performed by:
[facility] ([place])

[facility] Description: 25-hydroxyvitamin D3 [Mass/volume] in Serum or [id number] 05:40:00 Test Item Value Reference Range Interpretation Comments Vitamin D, 4.2 ng/mL 30.0-100.0 L Vitamin D defic iency has 25-Hydroxy (test been define d by the code = 41808-5) [place] [employer] [facility] an Endocrine So [facility] practice guidel ine as alevel of serum 25-OH vitamin D less than 20 ng/mL (1,2).The Endocrine Society went on to further define vitamin Dinsufficiency as a level between 21 and 29 ng/mL (2).1. IOM (Ins titute of Medicine). 2010 . Dietary reference intak es for calcium and D. [facility]: [employer] .2. Beverly Villavicencio, Shadia HERRMANN, et al. Evaluation, treatment, and prevention of vitamin D de ficiency: an Endocrine So [facility] clinical practi ce guideline. JCEM . 2010; 96(7):191-30.& lt;br/>
Performed by:
[facility] ([place])

[facility] Description: 25-hydroxyvitamin D3 [Mass/volume] in Serum or [id number] 05:40:00 Test Item Value Reference Range Interpretation Comments Vitamin D, 4.2 ng/mL 30.0-100.0 L Vitamin D defic iency has 25-Hydroxy (test been define d by the code = 89967-3) [place] [employer] and an Endocrine So [facility] practice guidel ine as alevel of serum 25-OH vitamin D less than 20 ng/mL (1,2).The Endocrine Society went on to further define vitamin Dinsufficiency as a level between 21 and 29 ng/mL (2).1. IOM (Ins titute of Medicine). 2010 . Dietary reference intak es for calcium and D. [place]: [employer] .2. Lance MF, Beverly KAPOOR, Shadia mckeon HERRMANN, et al. Evaluation, treatment, and prevention of vitamin D de ficiency: an Endocrine So [facility] clinical practi ce guideline. JCEM . 2010; 96(7):1911-30.& lt;br/>
Performed by:
[facility] ([facility]IN)

[facility] Description: RPR, Rfx Qn RPR/Confirm [id number] 05:29:00 Test Item Value Reference Range Interpretation Comments RPR (test code = 73441-9) Non Reactive Non Reactive [facility] Description: RPR, Rfx Qn RPR/Confirm [id number] 05:29:00 Test Item Value Reference Range Interpretation Comments RPR (test code = 59571-3) Non Reactive Non Reactive [facility] Description: RPR, Rfx Qn RPR/Confirm [id number] 05:29:00 Test Item Value Reference Range Interpretation Comments RPR (test code = 29451-2) Non Reactive Non Reactive [facility] Description: RPR, Rfx Qn RPR/Confirm [id number] 05:29:00 Test Item Value Reference Range Interpretation Comments RPR (test code = 89328-7) Non Reactive Non Reactive [facility] Description: RPR, Rfx Qn RPR/Confirm [id number] 05:29:00 Test Item Value Reference Range Interpretation Comments RPR (test code = 89534-5) Non Reactive Non Reactive [facility] Description: RPR, Rfx Qn RPR/Confirm [id number] 05:29:00 Test Item Value Reference Range Interpretation Comments RPR (test code = 70935-6) Non Reactive Non Reactive [facility] Description: RPR, Rfx Qn RPR/Confirm [id number] 05:29:00 Test Item Value Reference Range Interpretation Comments RPR (test code = 34032-1) Non Reactive Non Reactive [facility] Description: RPR, Rfx Qn RPR/Confirm [id number] 05:29:00 Test Item Value Reference Range Interpretation Comments RPR (test code = 51167-2) Non Reactive Non Reactive [facility] Description: RPR, Rfx Qn RPR/Confirm [id number] 05:29:00 Test Item Value Reference Range Interpretation Comments RPR (test code = 20731-8) Non Reactive Non Reactive [facility] Description: RPR, Rfx Qn RPR/Confirm [id number] 05:29:00 Test Item Value Reference Range Interpretation Comments RPR (test code = 84485-5) Non Reactive Non Reactive [facility] Description: RPR, Rfx Qn RPR/Confirm [id number] 05:29:00 Test Item Value Reference Range Interpretation Comments RPR (test code = 55383-3) Non Reactive Non Reactive [facility] Description: RPR, Rfx Qn RPR/Confirm [id number] 05:29:00 Test Item Value Reference Range Interpretation Comments RPR (test code = 73564-9) Non Reactive Non Reactive [facility] Description: RPR, Rfx Qn RPR/Confirm [id number] 05:29:00 Test Item Value Reference Range Interpretation Comments RPR (test code = 81996-9) Non Reactive Non Reactive [facility] Description: RPR, Rfx Qn RPR/Confirm [id number] 05:29:00 Test Item Value Reference Range Interpretation Comments RPR (test code = 97044-5) Non Reactive Non Reactive [facility] Description: RPR, Rfx Qn RPR/Confirm [id number] 05:29:00 Test Item Value Reference Range Interpretation Comments RPR (test code = 32143-9) Non Reactive Non Reactive [facility] Description: RPR, Rfx Qn RPR/Confirm [id number] 05:29:00 Test Item Value Reference Range Interpretation Comments RPR (test code = 65670-7) Non Reactive Non Reactive [facility] Description: RPR, Rfx Qn RPR/Confirm [id number] 05:29:00 Test Item Value Reference Range Interpretation Comments RPR (test code = 26098-8) Non Reactive Non Reactive [facility] Description: RPR, Rfx Qn RPR/Confirm [id number] 05:29:00 Test Item Value Reference Range Interpretation Comments RPR (test code = 18157-2) Non Reactive Non Reactive [facility] Description: RPR, Rfx Qn RPR/Confirm [id number] 05:29:00 Test Item Value Reference Range Interpretation Comments RPR (test code = 11830-1) Non Reactive Non Reactive [facility] Description: RPR, Rfx Qn RPR/Confirm [id number] 05:29:00 Test Item Value Reference Range Interpretation Comments RPR (test code = 02747-6) Non Reactive Non Reactive [facility] Description: RPR, Rfx Qn RPR/Confirm [id number] 05:29:00 Test Item Value Reference Range Interpretation Comments RPR (test code = 74491-3) Non Reactive Non Reactive [facility] Description: Thyrotropin [Units/volume] in Serum or Plasma by Detection limit <= 0.05 mIU/[id number] 02:59:00 Test Item Value Reference Range Interpretation Comments TSH (test code = 38632-8) 0.826 uIU/mL 0.450-4.500 [facility] Description: Thyrotropin [Units/volume] in Serum or Plasma by Detection limit <= 0.05 mIU/[id number] 02:59:00 Test Item Value Reference Range Interpretation Comments TSH (test code = 82096-1) 0.826 uIU/mL 0.450-4.500 [facility] Description: Thyrotropin [Units/volume] in Serum or Plasma by Detection limit <= 0.05 mIU/[id number] 02:59:00 Test Item Value Reference Range Interpretation Comments TSH (test code = 77908-1) 0.826 uIU/mL 0.450-4.500 [facility] Description: Thyrotropin [Units/volume] in Serum or Plasma by Detection limit <= 0.05 mIU/[id number] 02:59:00 Test Item Value Reference Range Interpretation Comments TSH (test code = 80734-6) 0.826 uIU/mL 0.450-4.500 [facility] Description: Thyrotropin [Units/volume] in Serum or Plasma by Detection limit <= 0.05 mIU/[id number] 02:59:00 Test Item Value Reference Range Interpretation Comments TSH (test code = 10443-4) 0.826 uIU/mL 0.450-4.500 [facility] Description: Thyrotropin [Units/volume] in Serum or Plasma by Detection limit <= 0.05 mIU/[id number] 02:59:00 Test Item Value Reference Range Interpretation Comments TSH (test code = 51357-0) 0.826 uIU/mL 0.450-4.500 [facility] Description: Thyrotropin [Units/volume] in Serum or Plasma by Detection limit <= 0.05 mIU/[id number] 02:59:00 Test Item Value Reference Range Interpretation Comments TSH (test code = 44523-4) 0.826 uIU/mL 0.450-4.500 [facility] Description: Thyrotropin [Units/volume] in Serum or Plasma by Detection limit <= 0.05 mIU/[id number] 02:59:00 Test Item Value Reference Range Interpretation Comments TSH (test code = 02306-4) 0.826 uIU/mL 0.450-4.500 [facility] Description: Thyrotropin [Units/volume] in Serum or Plasma by Detection limit <= 0.05 mIU/[id number] 02:59:00 Test Item Value Reference Range Interpretation Comments TSH (test code = 94973-0) 0.826 uIU/mL 0.450-4.500 [facility] Description: Thyrotropin [Units/volume] in Serum or Plasma by Detection limit <= 0.05 mIU/[id number] 02:59:00 Test Item Value Reference Range Interpretation Comments TSH (test code = 45382-3) 0.826 uIU/mL 0.450-4.500 [facility] Description: Thyrotropin [Units/volume] in Serum or Plasma by Detection limit <= 0.05 mIU/[id number] 02:59:00 Test Item Value Reference Range Interpretation Comments TSH (test code = 54179-3) 0.826 uIU/mL 0.450-4.500 [facility] Description: Thyrotropin [Units/volume] in Serum or Plasma by Detection limit <= 0.05 mIU/[id number] 02:59:00 Test Item Value Reference Range Interpretation Comments TSH (test code = 40716-6) 0.826 uIU/mL 0.450-4.500 [facility] Description: Thyrotropin [Units/volume] in Serum or Plasma by Detection limit <= 0.05 mIU/[id number] 02:59:00 Test Item Value Reference Range Interpretation Comments TSH (test code = 19484-8) 0.826 uIU/mL 0.450-4.500 [facility] Description: Thyrotropin [Units/volume] in Serum or Plasma by Detection limit <= 0.05 mIU/[id number] 02:59:00 Test Item Value Reference Range Interpretation Comments TSH (test code = 65771-2) 0.826 uIU/mL 0.450-4.500 [facility] Description: Thyrotropin [Units/volume] in Serum or Plasma by Detection limit <= 0.05 mIU/[id number] 02:59:00 Test Item Value Reference Range Interpretation Comments TSH (test code = 39710-6) 0.826 uIU/mL 0.450-4.500 [facility] Description: Thyrotropin [Units/volume] in Serum or Plasma by Detection limit <= 0.05 mIU/[id number] 02:59:00 Test Item Value Reference Range Interpretation Comments TSH (test code = 15453-1) 0.826 uIU/mL 0.450-4.500 [facility] Description: Thyrotropin [Units/volume] in Serum or Plasma by Detection limit <= 0.05 mIU/[id number] 02:59:00 Test Item Value Reference Range Interpretation Comments TSH (test code = 90016-4) 0.826 uIU/mL 0.450-4.500 [facility] Description: Thyrotropin [Units/volume] in Serum or Plasma by Detection limit <= 0.05 mIU/[id number] 02:59:00 Test Item Value Reference Range Interpretation Comments TSH (test code = 08080-0) 0.826 uIU/mL 0.450-4.500 [facility] Description: Thyrotropin [Units/volume] in Serum or Plasma by Detection limit <= 0.05 mIU/[id number] 02:59:00 Test Item Value Reference Range Interpretation Comments TSH (test code = 95845-4) 0.826 uIU/mL 0.450-4.500 [facility] Description: Thyrotropin [Units/volume] in Serum or Plasma by Detection limit <= 0.05 mIU/[id number] 02:59:00 Test Item Value Reference Range Interpretation Comments TSH (test code = 20486-7) 0.826 uIU/mL 0.450-4.500 [facility] Description: Thyrotropin [Units/volume] in Serum or Plasma by Detection limit <= 0.05 mIU/[id number] 02:59:00 Test Item Value Reference Range Interpretation Comments TSH (test code = 41812-9) 0.826 uIU/mL 0.450-4.500 [facility] Description: Lipid [id number] 02:18:00 Test Item Value Reference Range Interpretation Comments Cholesterol, Total (test code = 170 mg/dL 758-961 5614-3) Triglycerides (test code = 2571-8) 45 mg/dL 0-149 HDL Cholesterol (test code = 70 mg/dL >39 5-9) VLDL Cholesterol [place] (test code = 9 mg/dL 5-40 88994-5) LDL Chol Calc (NIH) (test code = 91 mg/dL 0-99 75355-1) Comment: (test code = 53941-8) [facility] Description: Lipid [id number] 02:18:00 Test Item Value Reference Range Interpretation Comments Cholesterol, Total (test code = 170 mg/dL 481-874 5616-3) Triglycerides (test code = 2571-8) 45 mg/dL 0-149 HDL Cholesterol (test code = 70 mg/dL >39 2085-9) VLDL Cholesterol [place] (test code = 9 mg/dL 5-40 37294-5) LDL Chol Calc (NIH) (test code = 91 mg/dL 0-99 60604-6) Comment: (test code = 21479-9) [facility] Description: Lipid [id number] 02:18:00 Test Item Value Reference Range Interpretation Comments Cholesterol, Total (test code = 170 mg/dL 786-187 4892-3) Triglycerides (test code = 2571-8) 45 mg/dL 0-149 HDL Cholesterol (test code = 70 mg/dL >39 2085-9) VLDL Cholesterol [place] (test code = 9 mg/dL 5-40 88013-5) LDL Chol Calc (NIH) (test code = 91 mg/dL 0-99 12708-2) Comment: (test code = 44163-5) [facility] Description: Lipid [id number] 02:18:00 Test Item Value Reference Range Interpretation Comments Cholesterol, Total (test code = 170 mg/dL 077-633 3721-3) Triglycerides (test code = 2571-8) 45 mg/dL 0-149 HDL Cholesterol (test code = 70 mg/dL >39 2085-9) VLDL Cholesterol [place] (test code = 9 mg/dL 5-40 93803-6) LDL Chol Calc (NIH) (test code = 91 mg/dL 0-99 68133-5) Comment: (test code = 04846-9) [facility] Description: Lipid [id number] 02:18:00 Test Item Value Reference Range Interpretation Comments Cholesterol, Total (test code = 170 mg/dL 113-211 6210-3) Triglycerides (test code = 2571-8) 45 mg/dL 0-149 HDL Cholesterol (test code = 70 mg/dL >39 2085-9) VLDL Cholesterol [place] (test code = 9 mg/dL 5-40 32718-1) LDL Chol Calc (NIH) (test code = 91 mg/dL 0-99 28148-9) Comment: (test code = 98980-3) [facility] Description: Lipid [id number] 02:18:00 Test Item Value Reference Range Interpretation Comments Cholesterol, Total (test code = 170 mg/dL 466-821 1117-3) Triglycerides (test code = 2571-8) 45 mg/dL 0-149 HDL Cholesterol (test code = 70 mg/dL >39 2085-9) VLDL Cholesterol [place] (test code = 9 mg/dL 5-40 00212-8) LDL Chol Calc (NIH) (test code = 91 mg/dL 0-99 98145-8) Comment: (test code = 15086-5) [facility] Description: Lipid [id number] 02:18:00 Test Item Value Reference Range Interpretation Comments Cholesterol, Total (test code = 170 mg/dL 860-214 3841-3) Triglycerides (test code = 2571-8) 45 mg/dL 0-149 HDL Cholesterol (test code = 70 mg/dL >39 2085-9) VLDL Cholesterol [place] (test code = 9 mg/dL 5-40 61532-7) LDL Chol Calc (NIH) (test code = 91 mg/dL 0-99 19278-9) Comment: (test code = 58169-8) [facility] Description: Lipid [id number] 02:18:00 Test Item Value Reference Range Interpretation Comments Cholesterol, Total (test code = 170 mg/dL 754-686 3356-3) Triglycerides (test code = 2571-8) 45 mg/dL 0-149 HDL Cholesterol (test code = 70 mg/dL >39 2085-9) VLDL Cholesterol [place] (test code = 9 mg/dL 5-40 75335-7) LDL Chol Calc (NIH) (test code = 91 mg/dL 0-99 73784-5) Comment: (test code = 15110-0) [facility] Description: Lipid [id number] 02:18:00 Test Item Value Reference Range Interpretation Comments Cholesterol, Total (test code = 170 mg/dL 921-133 3322-3) Triglycerides (test code = 2571-8) 45 mg/dL 0-149 HDL Cholesterol (test code = 70 mg/dL >39 2085-9) VLDL Cholesterol [place] (test code = 9 mg/dL 5-40 37881-7) LDL Chol Calc (NIH) (test code = 91 mg/dL 0-99 35207-6) Comment: (test code = 06862-0) [facility] Description: Lipid [id number] 02:18:00 Test Item Value Reference Range Interpretation Comments Cholesterol, Total (test code = 170 mg/dL 002-995 1533-3) Triglycerides (test code = 2571-8) 45 mg/dL 0-149 HDL Cholesterol (test code = 70 mg/dL >39 2085-9) VLDL Cholesterol [place] (test code = 9 mg/dL 5-40 61231-9) LDL Chol Calc (NIH) (test code = 91 mg/dL 0-99 39927-8) Comment: (test code = 06916-2) [facility] Description: Lipid [id number] 02:18:00 Test Item Value Reference Range Interpretation Comments Cholesterol, Total (test code = 170 mg/dL 868-693 9691-3) Triglycerides (test code = 2571-8) 45 mg/dL 0-149 HDL Cholesterol (test code = 70 mg/dL >39 2085-9) VLDL Cholesterol [place] (test code = 9 mg/dL 5-40 44136-4) LDL Chol Calc (NIH) (test code = 91 mg/dL 0-99 86735-5) Comment: (test code = 49095-7) [facility] Description: Lipid [id number] 02:18:00 Test Item Value Reference Range Interpretation Comments Cholesterol, Total (test code = 170 mg/dL 799-945 8798-3) Triglycerides (test code = 2571-8) 45 mg/dL 0-149 HDL Cholesterol (test code = 70 mg/dL >39 2085-9) VLDL Cholesterol [place] (test code = 9 mg/dL 5-40 31639-0) LDL Chol Calc (NIH) (test code = 91 mg/dL 0-99 39540-6) Comment: (test code = 06363-3) [facility] Description: Lipid [id number] 02:18:00 Test Item Value Reference Range Interpretation Comments Cholesterol, Total (test code = 170 mg/dL 175-471 3008-3) Triglycerides (test code = 2571-8) 45 mg/dL 0-149 HDL Cholesterol (test code = 70 mg/dL >39 2085-9) VLDL Cholesterol [place] (test code = 9 mg/dL 5-40 86517-7) LDL Chol Calc (NIH) (test code = 91 mg/dL 0-99 32704-1) Comment: (test code = 43969-0) [facility] Description: Lipid [id number] 02:18:00 Test Item Value Reference Range Interpretation Comments Cholesterol, Total (test code = 170 mg/dL 099-364 5156-3) Triglycerides (test code = 2571-8) 45 mg/dL 0-149 HDL Cholesterol (test code = 70 mg/dL >39 2085-9) VLDL Cholesterol [place] (test code = 9 mg/dL 5-40 21766-3) LDL Chol Calc (NIH) (test code = 91 mg/dL 0-99 54615-6) Comment: (test code = 71285-6) [facility] Description: Lipid [id number] 02:18:00 Test Item Value Reference Range Interpretation Comments Cholesterol, Total (test code = 170 mg/dL 958-409 6049-3) Triglycerides (test code = 2571-8) 45 mg/dL 0-149 HDL Cholesterol (test code = 70 mg/dL >39 2085-9) VLDL Cholesterol [place] (test code = 9 mg/dL 5-40 32877-5) LDL Chol Calc (NIH) (test code = 91 mg/dL 0-99 99644-0) Comment: (test code = 72269-7) [facility] Description: Lipid [id number] 02:18:00 Test Item Value Reference Range Interpretation Comments Cholesterol, Total (test code = 170 mg/dL 285-102 4163-3) Triglycerides (test code = 2571-8) 45 mg/dL 0-149 HDL Cholesterol (test code = 70 mg/dL >39 2085-9) VLDL Cholesterol [place] (test code = 9 mg/dL 5-40 81874-7) LDL Chol Calc (NIH) (test code = 91 mg/dL 0-99 81509-8) Comment: (test code = 64526-7) [facility] Description: Lipid [id number] 02:18:00 Test Item Value Reference Range Interpretation Comments Cholesterol, Total (test code = 170 mg/dL 778-708 3800-3) Triglycerides (test code = 2571-8) 45 mg/dL 0-149 HDL Cholesterol (test code = 70 mg/dL >39 2085-9) VLDL Cholesterol [place] (test code = 9 mg/dL 5-40 68354-2) LDL Chol Calc (NIH) (test code = 91 mg/dL 0-99 76512-0) Comment: (test code = 51560-4) [facility] Description: Lipid [id number] 02:18:00 Test Item Value Reference Range Interpretation Comments Cholesterol, Total (test code = 170 mg/dL 310-804 0747-3) Triglycerides (test code = 2571-8) 45 mg/dL 0-149 HDL Cholesterol (test code = 70 mg/dL >39 5-9) VLDL Cholesterol [place] (test code = 9 mg/dL 5-40 18244-7) LDL Chol Calc (NIH) (test code = 91 mg/dL 0-99 02781-0) Comment: (test code = 54025-6) [facility] Description: Lipid [id number] 02:18:00 Test Item Value Reference Range Interpretation Comments Cholesterol, Total (test code = 170 mg/dL 510-850 7221-3) Triglycerides (test code = 2571-8) 45 mg/dL 0-149 HDL Cholesterol (test code = 70 mg/dL >39 5-9) VLDL Cholesterol [place] (test code = 9 mg/dL 5-40 15988-7) LDL Chol Calc (NIH) (test code = 91 mg/dL 0-99 98231-6) Comment: (test code = 31998-2) [facility] Description: Lipid [id number] 02:18:00 Test Item Value Reference Range Interpretation Comments Cholesterol, Total (test code = 170 mg/dL 390-727 9384-3) Triglycerides (test code = 2571-8) 45 mg/dL 0-149 HDL Cholesterol (test code = 70 mg/dL >39 5-9) VLDL Cholesterol [place] (test code = 9 mg/dL 5-40 71138-2) LDL Chol Calc (NIH) (test code = 91 mg/dL 0-99 05248-9) Comment: (test code = 27987-9) [facility] Description: Lipid [id number] 02:18:00 Test Item Value Reference Range Interpretation Comments Cholesterol, Total (test code = 170 mg/dL 568-685 6905-3) Triglycerides (test code = 2571-8) 45 mg/dL 0-149 HDL Cholesterol (test code = 70 mg/dL >39 2085-9) VLDL Cholesterol [place] (test code = 9 mg/dL 5-40 02713-5) LDL Chol Calc (NIH) (test code = 91 mg/dL 0-99 28834-0) Comment: (test code = 75921-5) [facility] Description: Comp. Metabolic Panel (14)2020-08-28 02:12:00 Test Item Value Reference Range Interpretation Comments Glucose (test code = 2345-7) 83 mg/dL 65-99 BUN (test code = 3094-0) 8 mg/dL 6-24 Creatinine (test code = 0.53 mg/dL 0.57-1.00 L 2160-0) eGFR If NonAfricn Am (test 117 mL/min/1.73 >59 code = 32203-9) eGFR If Africn Am (test code 135 mL/min/1.73 >59 = 60883-2) BUN/Creatinine Ratio (test 15 9-23 code = 3097-3) Sodium (test code = 2951-2) 139 mmol/L 134-144 Potassium (test code = 4.3 mmol/L 3.5-5.2 2823-3) Chloride (test code = 2075-0) 103 mmol/L 96-106 Carbon Dioxide, Total (test 21 mmol/L 20-29 code = 8-9) Calcium (test code = 93765-2) 9.2 mg/dL 8.7-10.2 Protein, Total (test code = 7.1 g/dL 6.0-8.5 2885-2) Albumin (test code = 1751-7) 4.4 g/dL 3.8-4.8 Globulin, Total (test code = 2.7 g/dL 1.5-4.5 10007-4) A/G Ratio (test code = 1.6 1.2-2.2 1759-0) Bilirubin, Total (test code = 0.3 mg/dL 0.0-1.2 1974-2) Alkaline Phosphatase (test 66 IU/L 39-117 code = 6768-6) AST (SGOT) (test code = 19 IU/L 0-40 1920-8) ALT (SGPT) (test code = 11 IU/L 0-32 1742-6) [facility] Description: Comp. Metabolic Panel (14)2020-08-28 02:12:00 Test Item Value Reference Range Interpretation Comments Glucose (test code = 2345-7) 83 mg/dL 65-99 BUN (test code = 3094-0) 8 mg/dL 6-24 Creatinine (test code = 0.53 mg/dL 0.57-1.00 L 2160-0) eGFR If NonAfricn Am (test 117 mL/min/1.73 >59 code = 53649-9) eGFR If Africn Am (test code 135 mL/min/1.73 >59 = 14698-0) BUN/Creatinine Ratio (test 15 9-23 code = 3097-3) Sodium (test code = 2951-2) 139 mmol/L 134-144 Potassium (test code = 4.3 mmol/L 3.5-5.2 2823-3) Chloride (test code = 2075-0) 103 mmol/L 96-106 Carbon Dioxide, Total (test 21 mmol/L 20-29 code = 8-9) Calcium (test code = 67433-8) 9.2 mg/dL 8.7-10.2 Protein, Total (test code = 7.1 g/dL 6.0-8.5 2885-2) Albumin (test code = 1751-7) 4.4 g/dL 3.8-4.8 Globulin, Total (test code = 2.7 g/dL 1.5-4.5 01345-8) A/G Ratio (test code = 1.6 1.2-2.2 1759-0) Bilirubin, Total (test code = 0.3 mg/dL 0.0-1.2 1975-2) Alkaline Phosphatase (test 66 IU/L 39-117 code = 6768-6) AST (SGOT) (test code = 19 IU/L 0-40 1920-8) ALT (SGPT) (test code = 11 IU/L 0-32 1742-6) [facility] Description: Comp. Metabolic Panel (142020-08-28 02:12:00 Test Item Value Reference Range Interpretation Comments Glucose (test code = 2345-7) 83 mg/dL 65-99 BUN (test code = 3094-0) 8 mg/dL 6-24 Creatinine (test code = 0.53 mg/dL 0.57-1.00 L 2160-0) eGFR If NonAfricn Am (test 117 mL/min/1.73 >59 code = 05002-0) eGFR If Africn Am (test code 135 mL/min/1.73 >59 = 45805-8) BUN/Creatinine Ratio (test 15 - code = 3097-3) Sodium (test code = 2951-2) 139 mmol/L 134-144 Potassium (test code = 4.3 mmol/L 3.5-5.2 2823-3) Chloride (test code = 2075-0) 103 mmol/L 96-106 Carbon Dioxide, Total (test 21 mmol/L 20-29 code = 8-9) Calcium (test code = 98979-3) 9.2 mg/dL 8.7-10.2 Protein, Total (test code = 7.1 g/dL 6.0-8.5 2885-2) Albumin (test code = 1751-7) 4.4 g/dL 3.8-4.8 Globulin, Total (test code = 2.7 g/dL 1.5-4.5 34492-7) A/G Ratio (test code = 1.6 1.2-2.2 1759-0) Bilirubin, Total (test code = 0.3 mg/dL 0.0-1.2 1975-2) Alkaline Phosphatase (test 66 IU/L 39-117 code = 6768-6) AST (SGOT) (test code = 19 IU/L 0-40 1920-8) ALT (SGPT) (test code = 11 IU/L 0-32 1742-6) [facility] Description: Comp. Metabolic Panel ()2020-08-28 02:12:00 Test Item Value Reference Range Interpretation Comments Glucose (test code = 2345-7) 83 mg/dL 65-99 BUN (test code = 3094-0) 8 mg/dL 6-24 Creatinine (test code = 0.53 mg/dL 0.57-1.00 L 2160-0) eGFR If NonAfricn Am (test 117 mL/min/1.73 >59 code = 04952-0) eGFR If Africn Am (test code 135 mL/min/1.73 >59 = 29655-9) BUN/Creatinine Ratio (test 15 9-23 code = 3097-3) Sodium (test code = 2951-2) 139 mmol/L 134-144 Potassium (test code = 4.3 mmol/L 3.5-5.2 2823-3) Chloride (test code = 2075-0) 103 mmol/L 96-106 Carbon Dioxide, Total (test 21 mmol/L 20-29 code = 2028-9) Calcium (test code = 94024-6) 9.2 mg/dL 8.7-10.2 Protein, Total (test code = 7.1 g/dL 6.0-8.5 2885-2) Albumin (test code = 1751-7) 4.4 g/dL 3.8-4.8 Globulin, Total (test code = 2.7 g/dL 1.5-4.5 83087-1) A/G Ratio (test code = 1.6 1.2-2.2 1759-0) Bilirubin, Total (test code = 0.3 mg/dL 0.0-1.2 1975-2) Alkaline Phosphatase (test 66 IU/L 39-117 code = 6768-6) AST (SGOT) (test code = 19 IU/L 0-40 1920-8) ALT (SGPT) (test code = 11 IU/L 0-32 1742-6) [facility] Description: Comp. Metabolic Panel (142020-08-28 02:12:00 Test Item Value Reference Range Interpretation Comments Glucose (test code = 2345-7) 83 mg/dL 65-99 BUN (test code = 3094-0) 8 mg/dL 6-24 Creatinine (test code = 0.53 mg/dL 0.57-1.00 L 2160-0) eGFR If NonAfricn Am (test 117 mL/min/1.73 >59 code = 09196-0) eGFR If Africn Am (test code 135 mL/min/1.73 >59 = 73150-8) BUN/Creatinine Ratio (test 07-08 code = 3097-3) Sodium (test code = 2951-2) 139 mmol/L 134-144 Potassium (test code = 4.3 mmol/L 3.5-5.2 2823-3) Chloride (test code = 2075-0) 103 mmol/L 96-106 Carbon Dioxide, Total (test 21 mmol/L 20-29 code = 2028-9) Calcium (test code = 60326-9) 9.2 mg/dL 8.7-10.2 Protein, Total (test code = 7.1 g/dL 6.0-8.5 2885-2) Albumin (test code = 1751-7) 4.4 g/dL 3.8-4.8 Globulin, Total (test code = 2.7 g/dL 1.5-4.5 76131-0) A/G Ratio (test code = 1.6 1.2-2.2 1759-0) Bilirubin, Total (test code = 0.3 mg/dL 0.0-1.2 1975-2) Alkaline Phosphatase (test 66 IU/L 39-117 code = 6768-6) AST (SGOT) (test code = 19 IU/L 0-40 1920-8) ALT (SGPT) (test code = 11 IU/L 0-32 1742-6) [facility] Description: Comp. Metabolic Panel (2020-08-28 02:12:00 Test Item Value Reference Range Interpretation Comments Glucose (test code = 2345-7) 83 mg/dL 65-99 BUN (test code = 3094-0) 8 mg/dL 6-24 Creatinine (test code = 0.53 mg/dL 0.57-1.00 L 2160-0) eGFR If NonAfricn Am (test 117 mL/min/1.73 >59 code = 66274-2) eGFR If Africn Am (test code 135 mL/min/1.73 >59 = 28619-1) BUN/Creatinine Ratio (test 07-08 code = 3097-3) Sodium (test code = 2951-2) 139 mmol/L 134-144 Potassium (test code = 4.3 mmol/L 3.5-5.2 2823-3) Chloride (test code = 2075-0) 103 mmol/L 96-106 Carbon Dioxide, Total (test 21 mmol/L -29 code = 2027-9) Calcium (test code = 19305-6) 9.2 mg/dL 8.7-10.2 Protein, Total (test code = 7.1 g/dL 6.0-8.5 2885-2) Albumin (test code = 1751-7) 4.4 g/dL 3.8-4.8 Globulin, Total (test code = 2.7 g/dL 1.5-4.5 36174-6) A/G Ratio (test code = 1.6 1.2-2.2 1759-0) Bilirubin, Total (test code = 0.3 mg/dL 0.0-1.2 1975-2) Alkaline Phosphatase (test 66 IU/L 39-117 code = 6768-6) AST (SGOT) (test code = 19 IU/L 0-40 1920-8) ALT (SGPT) (test code = 11 IU/L 0-32 1742-6) [facility] Description: Comp. Metabolic Panel (2020-08-28 02:12:00 Test Item Value Reference Range Interpretation Comments Glucose (test code = 2345-7) 83 mg/dL 65-99 BUN (test code = 3094-0) 8 mg/dL 6-24 Creatinine (test code = 0.53 mg/dL 0.57-1.00 L 2160-0) eGFR If NonAfricn Am (test 117 mL/min/1.73 >59 code = 65097-2) eGFR If Africn Am (test code 135 mL/min/1.73 >59 = 95696-9) BUN/Creatinine Ratio (test 15 07-08 code = 3097-3) Sodium (test code = 2951-2) 139 mmol/L 134-144 Potassium (test code = 4.3 mmol/L 3.5-5.2 2823-3) Chloride (test code = 5-0) 103 mmol/L 96-106 Carbon Dioxide, Total (test 21 mmol/L -29 code = 2027-9) Calcium (test code = 20053-5) 9.2 mg/dL 8.7-10.2 Protein, Total (test code = 7.1 g/dL 6.0-8.5 2885-2) Albumin (test code = 1751-7) 4.4 g/dL 3.8-4.8 Globulin, Total (test code = 2.7 g/dL 1.5-4.5 82652-4) A/G Ratio (test code = 1.6 1.2-2.2 1759-0) Bilirubin, Total (test code = 0.3 mg/dL 0.0-1.2 1975-2) Alkaline Phosphatase (test 66 IU/L 39-117 code = 6768-6) AST (SGOT) (test code = 19 IU/L 0-40 1920-8) ALT (SGPT) (test code = 11 IU/L 0-32 1742-6) [facility] Description: Comp. Metabolic Panel (2020-08-28 02:12:00 Test Item Value Reference Range Interpretation Comments Glucose (test code = 2345-7) 83 mg/dL 65-99 BUN (test code = 3094-0) 8 mg/dL 6-24 Creatinine (test code = 0.53 mg/dL 0.57-1.00 L 2160-0) eGFR If NonAfricn Am (test 117 mL/min/1.73 >59 code = 86593-1) eGFR If Africn Am (test code 135 mL/min/1.73 >59 = 78592-2) BUN/Creatinine Ratio (test 15 -23 code = 3097-3) Sodium (test code = 2951-2) 139 mmol/L 134-144 Potassium (test code = 4.3 mmol/L 3.5-5.2 2823-3) Chloride (test code = 2075-0) 103 mmol/L 96-106 Carbon Dioxide, Total (test 21 mmol/L 20-29 code = 8-9) Calcium (test code = 14529-8) 9.2 mg/dL 8.7-10.2 Protein, Total (test code = 7.1 g/dL 6.0-8.5 2885-2) Albumin (test code = 1751-7) 4.4 g/dL 3.8-4.8 Globulin, Total (test code = 2.7 g/dL 1.5-4.5 00908-1) A/G Ratio (test code = 1.6 1.2-2.2 1759-0) Bilirubin, Total (test code = 0.3 mg/dL 0.0-1.2 1974-) Alkaline Phosphatase (test 66 IU/L 39-117 code = 6768-6) AST (SGOT) (test code = 19 IU/L 0-40 1920-8) ALT (SGPT) (test code = 11 IU/L 0-32 1742-6) [facility]: Comp[facility] (2020-08-28 02:12:00 Test Item Value Reference Range Interpretation Comments Glucose (test code = 2345-7) 83 mg/dL 65-99 BUN (test code = 3094-0) 8 mg/dL 6-24 Creatinine (test code = 0.53 mg/dL 0.57-1.00 L 2160-0) eGFR If NonAfricn Am (test 117 mL/min/1.73 >59 code = 39175-3) eGFR If Africn Am (test code 135 mL/min/1.73 >59 = 21355-2) BUN/Creatinine Ratio (test 15 9-23 code = 3097-3) Sodium (test code = 2951-2) 139 mmol/L 134-144 Potassium (test code = 4.3 mmol/L 3.5-5.2 2823-3) Chloride (test code = 2075-0) 103 mmol/L 96-106 Carbon Dioxide, Total (test 21 mmol/L 20-29 code = 8-9) Calcium (test code = 94273-0) 9.2 mg/dL 8.7-10.2 Protein, Total (test code = 7.1 g/dL 6.0-8.5 2885-2) Albumin (test code = 1751-7) 4.4 g/dL 3.8-4.8 Globulin, Total (test code = 2.7 g/dL 1.5-4.5 41503-2) A/G Ratio (test code = 1.6 1.2-2.2 1759-0) Bilirubin, Total (test code = 0.3 mg/dL 0.0-1.2 1974-) Alkaline Phosphatase (test 66 IU/L 39-117 code = 6768-6) AST (SGOT) (test code = 19 IU/L 0-40 1920-8) ALT (SGPT) (test code = 11 IU/L 0-32 1742-6) [facility] Description: Comp. Metabolic Panel (14)2020-08-28 02:12:00 Test Item Value Reference Range Interpretation Comments Glucose (test code = 2345-7) 83 mg/dL 65-99 BUN (test code = 3094-0) 8 mg/dL 6-24 Creatinine (test code = 0.53 mg/dL 0.57-1.00 L 2160-0) eGFR If NonAfricn Am (test 117 mL/min/1.73 >59 code = 71326-3) eGFR If Africn Am (test code 135 mL/min/1.73 >59 = 60436-4) BUN/Creatinine Ratio (test 15 - code = 3097-3) Sodium (test code = 2951-2) 139 mmol/L 134-144 Potassium (test code = 4.3 mmol/L 3.5-5.2 2823-3) Chloride (test code = 2075-0) 103 mmol/L 96-106 Carbon Dioxide, Total (test 21 mmol/L 20-29 code = 8-9) Calcium (test code = 80514-1) 9.2 mg/dL 8.7-10.2 Protein, Total (test code = 7.1 g/dL 6.0-8.5 2885-2) Albumin (test code = 1751-7) 4.4 g/dL 3.8-4.8 Globulin, Total (test code = 2.7 g/dL 1.5-4.5 23442-5) A/G Ratio (test code = 1.6 1.2-2.2 1759-0) Bilirubin, Total (test code = 0.3 mg/dL 0.0-1.2 1975-2) Alkaline Phosphatase (test 66 IU/L 39-117 code = 6768-6) AST (SGOT) (test code = 19 IU/L 0-40 1920-8) ALT (SGPT) (test code = 11 IU/L 0-32 1742-6) [facility] Description: Comp. Metabolic Panel (14)2020-08-28 02:12:00 Test Item Value Reference Range Interpretation Comments Glucose (test code = 2345-7) 83 mg/dL 65-99 BUN (test code = 3094-0) 8 mg/dL 6-24 Creatinine (test code = 0.53 mg/dL 0.57-1.00 L 2160-0) eGFR If NonAfricn Am (test 117 mL/min/1.73 >59 code = 02359-0) eGFR If Africn Am (test code 135 mL/min/1.73 >59 = 08995-8) BUN/Creatinine Ratio (test 15 -23 code = 3097-3) Sodium (test code = 2951-2) 139 mmol/L 134-144 Potassium (test code = 4.3 mmol/L 3.5-5.2 2823-3) Chloride (test code = 2075-0) 103 mmol/L 96-106 Carbon Dioxide, Total (test 21 mmol/L 20-29 code = 2028-9) Calcium (test code = 94285-0) 9.2 mg/dL 8.7-10.2 Protein, Total (test code = 7.1 g/dL 6.0-8.5 2885-2) Albumin (test code = 1751-7) 4.4 g/dL 3.8-4.8 Globulin, Total (test code = 2.7 g/dL 1.5-4.5 96677-0) A/G Ratio (test code = 1.6 1.2-2.2 1759-0) Bilirubin, Total (test code = 0.3 mg/dL 0.0-1.2 1975-2) Alkaline Phosphatase (test 66 IU/L 39-117 code = 6768-6) AST (SGOT) (test code = 19 IU/L 0-40 1920-8) ALT (SGPT) (test code = 11 IU/L 0-32 1742-6) [facility] Description: Comp. Metabolic Panel (2020-08-28 02:12:00 Test Item Value Reference Range Interpretation Comments Glucose (test code = 2345-7) 83 mg/dL 65-99 BUN (test code = 3094-0) 8 mg/dL 6-24 Creatinine (test code = 0.53 mg/dL 0.57-1.00 L 2160-0) eGFR If NonAfricn Am (test 117 mL/min/1.73 >59 code = 65581-3) eGFR If Africn Am (test code 135 mL/min/1.73 >59 = 44410-1) BUN/Creatinine Ratio (test 07-08 code = 3097-3) Sodium (test code = 2951-2) 139 mmol/L 134-144 Potassium (test code = 4.3 mmol/L 3.5-5.2 2823-3) Chloride (test code = 2075-0) 103 mmol/L 96-106 Carbon Dioxide, Total (test 21 mmol/L 20-29 code = 2028-9) Calcium (test code = 18713-9) 9.2 mg/dL 8.7-10.2 Protein, Total (test code = 7.1 g/dL 6.0-8.5 2885-2) Albumin (test code = 1751-7) 4.4 g/dL 3.8-4.8 Globulin, Total (test code = 2.7 g/dL 1.5-4.5 52023-8) A/G Ratio (test code = 1.6 1.2-2.2 1759-0) Bilirubin, Total (test code = 0.3 mg/dL 0.0-1.2 1975-2) Alkaline Phosphatase (test 66 IU/L 39-117 code = 6768-6) AST (SGOT) (test code = 19 IU/L 0-40 1920-8) ALT (SGPT) (test code = 11 IU/L 0-32 1742-6) [facility] Description: Comp. Metabolic Panel (2020-08-28 02:12:00 Test Item Value Reference Range Interpretation Comments Glucose (test code = 2345-7) 83 mg/dL 65-99 BUN (test code = 3094-0) 8 mg/dL 6-24 Creatinine (test code = 0.53 mg/dL 0.57-1.00 L 2160-0) eGFR If NonAfricn Am (test 117 mL/min/1.73 >59 code = 14543-2) eGFR If Africn Am (test code 135 mL/min/1.73 >59 = 01385-0) BUN/Creatinine Ratio (test 07-08 code = 3097-3) Sodium (test code = 2951-2) 139 mmol/L 134-144 Potassium (test code = 4.3 mmol/L 3.5-5.2 2823-3) Chloride (test code = 2075-0) 103 mmol/L 96-106 Carbon Dioxide, Total (test 21 mmol/L 20-29 code = 8-9) Calcium (test code = 99579-4) 9.2 mg/dL 8.7-10.2 Protein, Total (test code = 7.1 g/dL 6.0-8.5 2885-2) Albumin (test code = 1751-7) 4.4 g/dL 3.8-4.8 Globulin, Total (test code = 2.7 g/dL 1.5-4.5 37524-0) A/G Ratio (test code = 1.6 1.2-2.2 1759-0) Bilirubin, Total (test code = 0.3 mg/dL 0.0-1.2 1975-2) Alkaline Phosphatase (test 66 IU/L 39-117 code = 6768-6) AST (SGOT) (test code = 19 IU/L 0-40 1920-8) ALT (SGPT) (test code = 11 IU/L 0-32 1742-6) [facility] Description: Comp. Metabolic Panel (14)2020-08-28 02:12:00 Test Item Value Reference Range Interpretation Comments Glucose (test code = 2345-7) 83 mg/dL 65-99 BUN (test code = 3094-0) 8 mg/dL 6-24 Creatinine (test code = 0.53 mg/dL 0.57-1.00 L 2160-0) eGFR If NonAfricn Am (test 117 mL/min/1.73 >59 code = 41474-5) eGFR If Africn Am (test code 135 mL/min/1.73 >59 = 57086-4) BUN/Creatinine Ratio (test 07-08 code = 3097-3) Sodium (test code = 2951-2) 139 mmol/L 134-144 Potassium (test code = 4.3 mmol/L 3.5-5.2 2823-3) Chloride (test code = 2075-0) 103 mmol/L 96-106 Carbon Dioxide, Total (test 21 mmol/L - code = 2027-9) Calcium (test code = 05124-4) 9.2 mg/dL 8.7-10.2 Protein, Total (test code = 7.1 g/dL 6.0-8.5 2885-2) Albumin (test code = 1751-7) 4.4 g/dL 3.8-4.8 Globulin, Total (test code = 2.7 g/dL 1.5-4.5 57922-3) A/G Ratio (test code = 1.6 1.2-2.2 1759-0) Bilirubin, Total (test code = 0.3 mg/dL 0.0-1.2 1975-2) Alkaline Phosphatase (test 66 IU/L 39-117 code = 6768-6) AST (SGOT) (test code = 19 IU/L 0-40 1920-8) ALT (SGPT) (test code = 11 IU/L 0-32 1742-6) [facility] Description: Comp. Metabolic Panel (142020-08-28 02:12:00 Test Item Value Reference Range Interpretation Comments Glucose (test code = 2345-7) 83 mg/dL 65-99 BUN (test code = 3094-0) 8 mg/dL 6-24 Creatinine (test code = 0.53 mg/dL 0.57-1.00 L 2160-0) eGFR If NonAfricn Am (test 117 mL/min/1.73 >59 code = 47948-9) eGFR If Africn Am (test code 135 mL/min/1.73 >59 = 58629-3) BUN/Creatinine Ratio (test 15 07-08 code = 3097-3) Sodium (test code = 2951-2) 139 mmol/L 134-144 Potassium (test code = 4.3 mmol/L 3.5-5.2 2823-3) Chloride (test code = 2075-0) 103 mmol/L 96-106 Carbon Dioxide, Total (test 21 mmol/L -29 code = 2027-9) Calcium (test code = 91771-1) 9.2 mg/dL 8.7-10.2 Protein, Total (test code = 7.1 g/dL 6.0-8.5 2885-2) Albumin (test code = 1751-7) 4.4 g/dL 3.8-4.8 Globulin, Total (test code = 2.7 g/dL 1.5-4.5 32879-7) A/G Ratio (test code = 1.6 1.2-2.2 1759-0) Bilirubin, Total (test code = 0.3 mg/dL 0.0-1.2 1975-2) Alkaline Phosphatase (test 66 IU/L 39-117 code = 6768-6) AST (SGOT) (test code = 19 IU/L 0-40 1920-8) ALT (SGPT) (test code = 11 IU/L 0-32 1742-6) [facility] Description: Comp. Metabolic Panel (2020-08-28 02:12:00 Test Item Value Reference Range Interpretation Comments Glucose (test code = 2345-7) 83 mg/dL 65-99 BUN (test code = 3094-0) 8 mg/dL 6-24 Creatinine (test code = 0.53 mg/dL 0.57-1.00 L 2160-0) eGFR If NonAfricn Am (test 117 mL/min/1.73 >59 code = 71356-3) eGFR If Africn Am (test code 135 mL/min/1.73 >59 = 21641-5) BUN/Creatinine Ratio (test 15 - code = 3097-3) Sodium (test code = 2951-2) 139 mmol/L 134-144 Potassium (test code = 4.3 mmol/L 3.5-5.2 2823-3) Chloride (test code = 2075-0) 103 mmol/L 96-106 Carbon Dioxide, Total (test 21 mmol/L 20-29 code = 8-9) Calcium (test code = 22498-1) 9.2 mg/dL 8.7-10.2 Protein, Total (test code = 7.1 g/dL 6.0-8.5 2885-2) Albumin (test code = 1751-7) 4.4 g/dL 3.8-4.8 Globulin, Total (test code = 2.7 g/dL 1.5-4.5 54732-3) A/G Ratio (test code = 1.6 1.2-2.2 1759-0) Bilirubin, Total (test code = 0.3 mg/dL 0.0-1.2 1974-) Alkaline Phosphatase (test 66 IU/L 39-117 code = 6768-6) AST (SGOT) (test code = 19 IU/L 0-40 1920-8) ALT (SGPT) (test code = 11 IU/L 0-32 1742-6) [facility] Description: Comp. Metabolic Panel (2020-08-28 02:12:00 Test Item Value Reference Range Interpretation Comments Glucose (test code = 2345-7) 83 mg/dL 65-99 BUN (test code = 3094-0) 8 mg/dL 6-24 Creatinine (test code = 0.53 mg/dL 0.57-1.00 L 2160-0) eGFR If NonAfricn Am (test 117 mL/min/1.73 >59 code = 76611-9) eGFR If Africn Am (test code 135 mL/min/1.73 >59 = 66253-4) BUN/Creatinine Ratio (test 15 -23 code = 3097-3) Sodium (test code = 2951-2) 139 mmol/L 134-144 Potassium (test code = 4.3 mmol/L 3.5-5.2 2823-3) Chloride (test code = 2075-0) 103 mmol/L 96-106 Carbon Dioxide, Total (test 21 mmol/L 20-29 code = 8-9) Calcium (test code = 12444-3) 9.2 mg/dL 8.7-10.2 Protein, Total (test code = 7.1 g/dL 6.0-8.5 2885-2) Albumin (test code = 1751-7) 4.4 g/dL 3.8-4.8 Globulin, Total (test code = 2.7 g/dL 1.5-4.5 84897-2) A/G Ratio (test code = 1.6 1.2-2.2 1758-0) Bilirubin, Total (test code = 0.3 mg/dL 0.0-1.2 1974-) Alkaline Phosphatase (test 66 IU/L 39-117 code = 6768-6) AST (SGOT) (test code = 19 IU/L 0-40 1920-8) ALT (SGPT) (test code = 11 IU/L 0-32 1742-6) [facility]: [facility] (2020-08-28 02:12:00 Test Item Value Reference Range Interpretation Comments Glucose (test code = 2345-7) 83 mg/dL 65-99 BUN (test code = 3094-0) 8 mg/dL 6-24 Creatinine (test code = 0.53 mg/dL 0.57-1.00 L 2160-0) eGFR If NonAfricn Am (test 117 mL/min/1.73 >59 code = 23563-3) eGFR If Africn Am (test code 135 mL/min/1.73 >59 = 12154-7) BUN/Creatinine Ratio (test 15 07-08 code = 3097-3) Sodium (test code = 2951-2) 139 mmol/L 134-144 Potassium (test code = 4.3 mmol/L 3.5-5.2 2823-3) Chloride (test code = 2075-0) 103 mmol/L 96-106 Carbon Dioxide, Total (test 21 mmol/L 20-29 code = 8-9) Calcium (test code = 10438-1) 9.2 mg/dL 8.7-10.2 Protein, Total (test code = 7.1 g/dL 6.0-8.5 2885-2) Albumin (test code = 1751-7) 4.4 g/dL 3.8-4.8 Globulin, Total (test code = 2.7 g/dL 1.5-4.5 88548-7) A/G Ratio (test code = 1.6 1.2-2.2 1759-0) Bilirubin, Total (test code = 0.3 mg/dL 0.0-1.2 1975-2) Alkaline Phosphatase (test 66 IU/L 39-117 code = 6768-6) AST (SGOT) (test code = 19 IU/L 0-40 1920-8) ALT (SGPT) (test code = 11 IU/L 0-32 1742-6) [facility] Description: Comp. Metabolic Panel (142020-08-28 02:12:00 Test Item Value Reference Range Interpretation Comments Glucose (test code = 2345-7) 83 mg/dL 65-99 BUN (test code = 3094-0) 8 mg/dL 6-24 Creatinine (test code = 0.53 mg/dL 0.57-1.00 L 2160-0) eGFR If NonAfricn Am (test 117 mL/min/1.73 >59 code = 60788-5) eGFR If Africn Am (test code 135 mL/min/1.73 >59 = 25028-8) BUN/Creatinine Ratio (test 15 07-08 code = 3097-3) Sodium (test code = 2951-2) 139 mmol/L 134-144 Potassium (test code = 4.3 mmol/L 3.5-5.2 2823-3) Chloride (test code = 2075-0) 103 mmol/L 96-106 Carbon Dioxide, Total (test 21 mmol/L 20-29 code = 8-9) Calcium (test code = 82078-8) 9.2 mg/dL 8.7-10.2 Protein, Total (test code = 7.1 g/dL 6.0-8.5 2885-2) Albumin (test code = 1751-7) 4.4 g/dL 3.8-4.8 Globulin, Total (test code = 2.7 g/dL 1.5-4.5 00287-5) A/G Ratio (test code = 1.6 1.2-2.2 1759-0) Bilirubin, Total (test code = 0.3 mg/dL 0.0-1.2 1975-2) Alkaline Phosphatase (test 66 IU/L 39-117 code = 6768-6) AST (SGOT) (test code = 19 IU/L 0-40 1920-8) ALT (SGPT) (test code = 11 IU/L 0-32 1742-6) [facility] Description: Comp. Metabolic Panel (2020-08-28 02:12:00 Test Item Value Reference Range Interpretation Comments Glucose (test code = 2345-7) 83 mg/dL 65-99 BUN (test code = 3094-0) 8 mg/dL 6-24 Creatinine (test code = 0.53 mg/dL 0.57-1.00 L 2160-0) eGFR If NonAfricn Am (test 117 mL/min/1.73 >59 code = 47657-5) eGFR If Africn Am (test code 135 mL/min/1.73 >59 = 89615-5) BUN/Creatinine Ratio (test 07-08 code = 3097-3) Sodium (test code = 2951-2) 139 mmol/L 134-144 Potassium (test code = 4.3 mmol/L 3.5-5.2 2823-3) Chloride (test code = 2075-0) 103 mmol/L 96-106 Carbon Dioxide, Total (test 21 mmol/L 20-29 code = 2028-9) Calcium (test code = 72307-1) 9.2 mg/dL 8.7-10.2 Protein, Total (test code = 7.1 g/dL 6.0-8.5 2885-2) Albumin (test code = 1751-7) 4.4 g/dL 3.8-4.8 Globulin, Total (test code = 2.7 g/dL 1.5-4.5 98740-0) A/G Ratio (test code = 1.6 1.2-2.2 1759-0) Bilirubin, Total (test code = 0.3 mg/dL 0.0-1.2 1975-2) Alkaline Phosphatase (test 66 IU/L 39-117 code = 6768-6) AST (SGOT) (test code = 19 IU/L 0-40 1920-8) ALT (SGPT) (test code = 11 IU/L 0-32 1742-6) [facility] Description: Comp. Metabolic Panel (2020-08-28 02:12:00 Test Item Value Reference Range Interpretation Comments Glucose (test code = 2345-7) 83 mg/dL 65-99 BUN (test code = 3094-0) 8 mg/dL 6-24 Creatinine (test code = 0.53 mg/dL 0.57-1.00 L 2160-0) eGFR If NonAfricn Am (test 117 mL/min/1.73 >59 code = 37957-6) eGFR If Africn Am (test code 135 mL/min/1.73 >59 = 15677-4) BUN/Creatinine Ratio (test 07-08 code = 3097-3) Sodium (test code = 2951-2) 139 mmol/L 134-144 Potassium (test code = 4.3 mmol/L 3.5-5.2 2823-3) Chloride (test code = 2075-0) 103 mmol/L 96-106 Carbon Dioxide, Total (test 21 mmol/L 20-29 code = 8-9) Calcium (test code = 46347-8) 9.2 mg/dL 8.7-10.2 Protein, Total (test code = 7.1 g/dL 6.0-8.5 2885-2) Albumin (test code = 1751-7) 4.4 g/dL 3.8-4.8 Globulin, Total (test code = 2.7 g/dL 1.5-4.5 59513-1) A/G Ratio (test code = 1.6 1.2-2.2 1759-0) Bilirubin, Total (test code = 0.3 mg/dL 0.0-1.2 1974-2) Alkaline Phosphatase (test 66 IU/L 39-117 code = 6768-6) AST (SGOT) (test code = 19 IU/L 0-40 1920-8) ALT (SGPT) (test code = 11 IU/L 0-32 1742-6) [facility] Description: CBC With Differential/[id number] 23:55:00 Test Item Value Reference Range Interpretation Comments WBC (test code = 6690-2) 4.2 x10E3/uL 3.4-10.8 RBC (test code = 789-8) 3.63 x10E6/uL 3.77-5.28 L Hemoglobin (test code = 718-7) 9.3 g/dL 11.1-15.9 L Hematocrit (test code = 4544-3) 30.1 % 34.0-46.6 L MCV (test code = 787-2) 83 fL 79-97 MCH (test code = 785-6) 25.6 pg 26.6-33.0 L MCHC (test code = 786-4) 30.9 g/dL 31.5-35.7 L RDW (test code = 788-0) 14.2 % 11.7-15.4 Platelets (test code = 777-3) 387 x10E3/uL 150-450 Neutrophils (test code = 770-8) 42 % Not Estab. Lymphs (test code = 736-9) 47 % Not Estab. Monocytes (test code = 5905-5) 6 % Not Estab. Eos (test code = 713-8) 4 % Not Estab. Basos (test code = 706-2) 1 % Not Estab. Neutrophils (Absolute) (test 1.8 x10E3/uL 1.4-7.0 code = 751-8) Lymphs (Absolute) (test code = 2.0 x10E3/uL 0.7-3.1 731-0) Monocytes(Absolute) (test code 0.3 x10E3/uL 0.1-0.9 = 742-7) Eos (Absolute) (test code = 0.2 x10E3/uL 0.0-0.4 711-2) Baso (Absolute) (test code = 0.0 x10E3/uL 0.0-0.2 704-7) Immature Granulocytes (test 0 % Not Estab. code = 97102-1) Immature Grans (Abs) (test code 0.0 x10E3/uL 0.0-0.1 = 40375-0) NRBC (test code = 22462-0) Hematology Comments: (test code = 46499-8) [facility] Description: CBC With Differential/[id number] 23:55:00 Test Item Value Reference Range Interpretation Comments WBC (test code = 6690-2) 4.2 x10E3/uL 3.4-10.8 RBC (test code = 789-8) 3.63 x10E6/uL 3.77-5.28 L Hemoglobin (test code = 718-7) 9.3 g/dL 11.1-15.9 L Hematocrit (test code = 4544-3) 30.1 % 34.0-46.6 L MCV (test code = 787-2) 83 fL 79-97 MCH (test code = 785-6) 25.6 pg 26.6-33.0 L MCHC (test code = 786-4) 30.9 g/dL 31.5-35.7 L RDW (test code = 788-0) 14.2 % 11.7-15.4 Platelets (test code = 777-3) 387 x10E3/uL 150-450 Neutrophils (test code = 770-8) 42 % Not Estab. Lymphs (test code = 736-9) 47 % Not Estab. Monocytes (test code = 5905-5) 6 % Not Estab. Eos (test code = 713-8) 4 % Not Estab. Basos (test code = 706-2) 1 % Not Estab. Neutrophils (Absolute) (test 1.8 x10E3/uL 1.4-7.0 code = 751-8) Lymphs (Absolute) (test code = 2.0 x10E3/uL 0.7-3.1 731-0) Monocytes(Absolute) (test code 0.3 x10E3/uL 0.1-0.9 = 742-7) Eos (Absolute) (test code = 0.2 x10E3/uL 0.0-0.4 711-2) Baso (Absolute) (test code = 0.0 x10E3/uL 0.0-0.2 704-7) Immature Granulocytes (test 0 % Not Estab. code = 48838-4) Immature Grans (Abs) (test code 0.0 x10E3/uL 0.0-0.1 = 26547-6) NRBC (test code = 79097-3) Hematology Comments: (test code = 88338-0) [facility] Description: CBC With Differential/[id number] 23:55:00 Test Item Value Reference Range Interpretation Comments WBC (test code = 6690-2) 4.2 x10E3/uL 3.4-10.8 RBC (test code = 789-8) 3.63 x10E6/uL 3.77-5.28 L Hemoglobin (test code = 718-7) 9.3 g/dL 11.1-15.9 L Hematocrit (test code = 4544-3) 30.1 % 34.0-46.6 L MCV (test code = 787-2) 83 fL 79-97 MCH (test code = 785-6) 25.6 pg 26.6-33.0 L MCHC (test code = 786-4) 30.9 g/dL 31.5-35.7 L RDW (test code = 788-0) 14.2 % 11.7-15.4 Platelets (test code = 777-3) 387 x10E3/uL 150-450 Neutrophils (test code = 770-8) 42 % Not Estab. Lymphs (test code = 736-9) 47 % Not Estab. Monocytes (test code = 5905-5) 6 % Not Estab. Eos (test code = 713-8) 4 % Not Estab. Basos (test code = 706-2) 1 % Not Estab. Neutrophils (Absolute) (test 1.8 x10E3/uL 1.4-7.0 code = 751-8) Lymphs (Absolute) (test code = 2.0 x10E3/uL 0.7-3.1 731-0) Monocytes(Absolute) (test code 0.3 x10E3/uL 0.1-0.9 = 742-7) Eos (Absolute) (test code = 0.2 x10E3/uL 0.0-0.4 711-2) Baso (Absolute) (test code = 0.0 x10E3/uL 0.0-0.2 704-7) Immature Granulocytes (test 0 % Not Estab. code = 08061-3) Immature Grans (Abs) (test code 0.0 x10E3/uL 0.0-0.1 = 27150-4) NRBC (test code = 48113-4) Hematology Comments: (test code = 40063-3) [facility] Description: CBC With Differential/[id number] 23:55:00 Test Item Value Reference Range Interpretation Comments WBC (test code = 6690-2) 4.2 x10E3/uL 3.4-10.8 RBC (test code = 789-8) 3.63 x10E6/uL 3.77-5.28 L Hemoglobin (test code = 718-7) 9.3 g/dL 11.1-15.9 L Hematocrit (test code = 4544-3) 30.1 % 34.0-46.6 L MCV (test code = 787-2) 83 fL 79-97 MCH (test code = 785-6) 25.6 pg 26.6-33.0 L MCHC (test code = 786-4) 30.9 g/dL 31.5-35.7 L RDW (test code = 788-0) 14.2 % 11.7-15.4 Platelets (test code = 777-3) 387 x10E3/uL 150-450 Neutrophils (test code = 770-8) 42 % Not Estab. Lymphs (test code = 736-9) 47 % Not Estab. Monocytes (test code = 5905-5) 6 % Not Estab. Eos (test code = 713-8) 4 % Not Estab. Basos (test code = 706-2) 1 % Not Estab. Neutrophils (Absolute) (test 1.8 x10E3/uL 1.4-7.0 code = 751-8) Lymphs (Absolute) (test code = 2.0 x10E3/uL 0.7-3.1 731-0) Monocytes(Absolute) (test code 0.3 x10E3/uL 0.1-0.9 = 742-7) Eos (Absolute) (test code = 0.2 x10E3/uL 0.0-0.4 711-2) Baso (Absolute) (test code = 0.0 x10E3/uL 0.0-0.2 704-7) Immature Granulocytes (test 0 % Not Estab. code = 71712-5) Immature Grans (Abs) (test code 0.0 x10E3/uL 0.0-0.1 = 37680-2) NRBC (test code = 51326-3) Hematology Comments: (test code = 50959-7) [facility] Description: CBC With Differential/[id number] 23:55:00 Test Item Value Reference Range Interpretation Comments WBC (test code = 6690-2) 4.2 x10E3/uL 3.4-10.8 RBC (test code = 789-8) 3.63 x10E6/uL 3.77-5.28 L Hemoglobin (test code = 718-7) 9.3 g/dL 11.1-15.9 L Hematocrit (test code = 4544-3) 30.1 % 34.0-46.6 L MCV (test code = 787-2) 83 fL 79-97 MCH (test code = 785-6) 25.6 pg 26.6-33.0 L MCHC (test code = 786-4) 30.9 g/dL 31.5-35.7 L RDW (test code = 788-0) 14.2 % 11.7-15.4 Platelets (test code = 777-3) 387 x10E3/uL 150-450 Neutrophils (test code = 770-8) 42 % Not Estab. Lymphs (test code = 736-9) 47 % Not Estab. Monocytes (test code = 5905-5) 6 % Not Estab. Eos (test code = 713-8) 4 % Not Estab. Basos (test code = 706-2) 1 % Not Estab. Neutrophils (Absolute) (test 1.8 x10E3/uL 1.4-7.0 code = 751-8) Lymphs (Absolute) (test code = 2.0 x10E3/uL 0.7-3.1 731-0) Monocytes(Absolute) (test code 0.3 x10E3/uL 0.1-0.9 = 742-7) Eos (Absolute) (test code = 0.2 x10E3/uL 0.0-0.4 711-2) Baso (Absolute) (test code = 0.0 x10E3/uL 0.0-0.2 704-7) Immature Granulocytes (test 0 % Not Estab. code = 98660-9) Immature Grans (Abs) (test code 0.0 x10E3/uL 0.0-0.1 = 24508-4) NRBC (test code = 22715-6) Hematology Comments: (test code = 79687-8) [facility] Description: CBC With Differential/[id number] 23:55:00 Test Item Value Reference Range Interpretation Comments WBC (test code = 6690-2) 4.2 x10E3/uL 3.4-10.8 RBC (test code = 789-8) 3.63 x10E6/uL 3.77-5.28 L Hemoglobin (test code = 718-7) 9.3 g/dL 11.1-15.9 L Hematocrit (test code = 4544-3) 30.1 % 34.0-46.6 L MCV (test code = 787-2) 83 fL 79-97 MCH (test code = 785-6) 25.6 pg 26.6-33.0 L MCHC (test code = 786-4) 30.9 g/dL 31.5-35.7 L RDW (test code = 788-0) 14.2 % 11.7-15.4 Platelets (test code = 777-3) 387 x10E3/uL 150-450 Neutrophils (test code = 770-8) 42 % Not Estab. Lymphs (test code = 736-9) 47 % Not Estab. Monocytes (test code = 5905-5) 6 % Not Estab. Eos (test code = 713-8) 4 % Not Estab. Basos (test code = 706-2) 1 % Not Estab. Neutrophils (Absolute) (test 1.8 x10E3/uL 1.4-7.0 code = 751-8) Lymphs (Absolute) (test code = 2.0 x10E3/uL 0.7-3.1 731-0) Monocytes(Absolute) (test code 0.3 x10E3/uL 0.1-0.9 = 742-7) Eos (Absolute) (test code = 0.2 x10E3/uL 0.0-0.4 711-2) Baso (Absolute) (test code = 0.0 x10E3/uL 0.0-0.2 704-7) Immature Granulocytes (test 0 % Not Estab. code = 22884-7) Immature Grans (Abs) (test code 0.0 x10E3/uL 0.0-0.1 = 71915-5) NRBC (test code = 00715-0) Hematology Comments: (test code = 31522-9) [facility] Description: CBC With Differential/[id number] 23:55:00 Test Item Value Reference Range Interpretation Comments WBC (test code = 6690-2) 4.2 x10E3/uL 3.4-10.8 RBC (test code = 789-8) 3.63 x10E6/uL 3.77-5.28 L Hemoglobin (test code = 718-7) 9.3 g/dL 11.1-15.9 L Hematocrit (test code = 4544-3) 30.1 % 34.0-46.6 L MCV (test code = 787-2) 83 fL 79-97 MCH (test code = 785-6) 25.6 pg 26.6-33.0 L MCHC (test code = 786-4) 30.9 g/dL 31.5-35.7 L RDW (test code = 788-0) 14.2 % 11.7-15.4 Platelets (test code = 777-3) 387 x10E3/uL 150-450 Neutrophils (test code = 770-8) 42 % Not Estab. Lymphs (test code = 736-9) 47 % Not Estab. Monocytes (test code = 5905-5) 6 % Not Estab. Eos (test code = 713-8) 4 % Not Estab. Basos (test code = 706-2) 1 % Not Estab. Neutrophils (Absolute) (test 1.8 x10E3/uL 1.4-7.0 code = 751-8) Lymphs (Absolute) (test code = 2.0 x10E3/uL 0.7-3.1 731-0) Monocytes(Absolute) (test code 0.3 x10E3/uL 0.1-0.9 = 742-7) Eos (Absolute) (test code = 0.2 x10E3/uL 0.0-0.4 711-2) Baso (Absolute) (test code = 0.0 x10E3/uL 0.0-0.2 704-7) Immature Granulocytes (test 0 % Not Estab. code = 31163-1) Immature Grans (Abs) (test code 0.0 x10E3/uL 0.0-0.1 = 54177-6) NRBC (test code = 48341-1) Hematology Comments: (test code = 36785-7) [facility] Description: CBC With Differential/Iaavuhwd2573-16-67 23:55:00 Test Item Value Reference Range Interpretation Comments WBC (test code = 6690-2) 4.2 x10E3/uL 3.4-10.8 RBC (test code = 789-8) 3.63 x10E6/uL 3.77-5.28 L Hemoglobin (test code = 718-7) 9.3 g/dL 11.1-15.9 L Hematocrit (test code = 4544-3) 30.1 % 34.0-46.6 L MCV (test code = 787-2) 83 fL 79-97 MCH (test code = 785-6) 25.6 pg 26.6-33.0 L MCHC (test code = 786-4) 30.9 g/dL 31.5-35.7 L RDW (test code = 788-0) 14.2 % 11.7-15.4 Platelets (test code = 777-3) 387 x10E3/uL 150-450 Neutrophils (test code = 770-8) 42 % Not Estab. Lymphs (test code = 736-9) 47 % Not Estab. Monocytes (test code = 5905-5) 6 % Not Estab. Eos (test code = 713-8) 4 % Not Estab. Basos (test code = 706-2) 1 % Not Estab. Neutrophils (Absolute) (test 1.8 x10E3/uL 1.4-7.0 code = 751-8) Lymphs (Absolute) (test code = 2.0 x10E3/uL 0.7-3.1 731-0) Monocytes(Absolute) (test code 0.3 x10E3/uL 0.1-0.9 = 742-7) Eos (Absolute) (test code = 0.2 x10E3/uL 0.0-0.4 711-2) Baso (Absolute) (test code = 0.0 x10E3/uL 0.0-0.2 704-7) Immature Granulocytes (test 0 % Not Estab. code = 58547-9) Immature Grans (Abs) (test code 0.0 x10E3/uL 0.0-0.1 = 06736-9) NRBC (test code = 65119-4) Hematology Comments: (test code = 49700-7) [facility] Description: CBC With Differential/Tkaxywhi4177-84-31 23:55:00 Test Item Value Reference Range Interpretation Comments WBC (test code = 6690-2) 4.2 x10E3/uL 3.4-10.8 RBC (test code = 789-8) 3.63 x10E6/uL 3.77-5.28 L Hemoglobin (test code = 718-7) 9.3 g/dL 11.1-15.9 L Hematocrit (test code = 4544-3) 30.1 % 34.0-46.6 L MCV (test code = 787-2) 83 fL 79-97 MCH (test code = 785-6) 25.6 pg 26.6-33.0 L MCHC (test code = 786-4) 30.9 g/dL 31.5-35.7 L RDW (test code = 788-0) 14.2 % 11.7-15.4 Platelets (test code = 777-3) 387 x10E3/uL 150-450 Neutrophils (test code = 770-8) 42 % Not Estab. Lymphs (test code = 736-9) 47 % Not Estab. Monocytes (test code = 5905-5) 6 % Not Estab. Eos (test code = 713-8) 4 % Not Estab. Basos (test code = 706-2) 1 % Not Estab. Neutrophils (Absolute) (test 1.8 x10E3/uL 1.4-7.0 code = 751-8) Lymphs (Absolute) (test code = 2.0 x10E3/uL 0.7-3.1 731-0) Monocytes(Absolute) (test code 0.3 x10E3/uL 0.1-0.9 = 742-7) Eos (Absolute) (test code = 0.2 x10E3/uL 0.0-0.4 711-2) Baso (Absolute) (test code = 0.0 x10E3/uL 0.0-0.2 704-7) Immature Granulocytes (test 0 % Not Estab. code = 60483-0) Immature Grans (Abs) (test code 0.0 x10E3/uL 0.0-0.1 = 78423-8) NRBC (test code = 51651-7) Hematology Comments: (test code = 23145-7) [facility] Description: CBC With Differential/Xoksievu1964-68-32 23:55:00 Test Item Value Reference Range Interpretation Comments WBC (test code = 6690-2) 4.2 x10E3/uL 3.4-10.8 RBC (test code = 789-8) 3.63 x10E6/uL 3.77-5.28 L Hemoglobin (test code = 718-7) 9.3 g/dL 11.1-15.9 L Hematocrit (test code = 4544-3) 30.1 % 34.0-46.6 L MCV (test code = 787-2) 83 fL 79-97 MCH (test code = 785-6) 25.6 pg 26.6-33.0 L MCHC (test code = 786-4) 30.9 g/dL 31.5-35.7 L RDW (test code = 788-0) 14.2 % 11.7-15.4 Platelets (test code = 777-3) 387 x10E3/uL 150-450 Neutrophils (test code = 770-8) 42 % Not Estab. Lymphs (test code = 736-9) 47 % Not Estab. Monocytes (test code = 5905-5) 6 % Not Estab. Eos (test code = 713-8) 4 % Not Estab. Basos (test code = 706-2) 1 % Not Estab. Neutrophils (Absolute) (test 1.8 x10E3/uL 1.4-7.0 code = 751-8) Lymphs (Absolute) (test code = 2.0 x10E3/uL 0.7-3.1 731-0) Monocytes(Absolute) (test code 0.3 x10E3/uL 0.1-0.9 = 742-7) Eos (Absolute) (test code = 0.2 x10E3/uL 0.0-0.4 711-2) Baso (Absolute) (test code = 0.0 x10E3/uL 0.0-0.2 704-7) Immature Granulocytes (test 0 % Not Estab. code = 26250-6) Immature Grans (Abs) (test code 0.0 x10E3/uL 0.0-0.1 = 29716-1) NRBC (test code = 01143-6) Hematology Comments: (test code = 28963-0) [facility] Description: CBC With Differential/Gripvgii8032-09-15 23:55:00 Test Item Value Reference Range Interpretation Comments WBC (test code = 6690-2) 4.2 x10E3/uL 3.4-10.8 RBC (test code = 789-8) 3.63 x10E6/uL 3.77-5.28 L Hemoglobin (test code = 718-7) 9.3 g/dL 11.1-15.9 L Hematocrit (test code = 4544-3) 30.1 % 34.0-46.6 L MCV (test code = 787-2) 83 fL 79-97 MCH (test code = 785-6) 25.6 pg 26.6-33.0 L MCHC (test code = 786-4) 30.9 g/dL 31.5-35.7 L RDW (test code = 788-0) 14.2 % 11.7-15.4 Platelets (test code = 777-3) 387 x10E3/uL 150-450 Neutrophils (test code = 770-8) 42 % Not Estab. Lymphs (test code = 736-9) 47 % Not Estab. Monocytes (test code = 5905-5) 6 % Not Estab. Eos (test code = 713-8) 4 % Not Estab. Basos (test code = 706-2) 1 % Not Estab. Neutrophils (Absolute) (test 1.8 x10E3/uL 1.4-7.0 code = 751-8) Lymphs (Absolute) (test code = 2.0 x10E3/uL 0.7-3.1 731-0) Monocytes(Absolute) (test code 0.3 x10E3/uL 0.1-0.9 = 742-7) Eos (Absolute) (test code = 0.2 x10E3/uL 0.0-0.4 711-2) Baso (Absolute) (test code = 0.0 x10E3/uL 0.0-0.2 704-7) Immature Granulocytes (test 0 % Not Estab. code = 21597-5) Immature Grans (Abs) (test code 0.0 x10E3/uL 0.0-0.1 = 52302-0) NRBC (test code = 21503-0) Hematology Comments: (test code = 86322-0) [facility] Description: CBC With Differential/Ekypiiov1345-77-17 23:55:00 Test Item Value Reference Range Interpretation Comments WBC (test code = 6690-2) 4.2 x10E3/uL 3.4-10.8 RBC (test code = 789-8) 3.63 x10E6/uL 3.77-5.28 L Hemoglobin (test code = 718-7) 9.3 g/dL 11.1-15.9 L Hematocrit (test code = 4544-3) 30.1 % 34.0-46.6 L MCV (test code = 787-2) 83 fL 79-97 MCH (test code = 785-6) 25.6 pg 26.6-33.0 L MCHC (test code = 786-4) 30.9 g/dL 31.5-35.7 L RDW (test code = 788-0) 14.2 % 11.7-15.4 Platelets (test code = 777-3) 387 x10E3/uL 150-450 Neutrophils (test code = 770-8) 42 % Not Estab. Lymphs (test code = 736-9) 47 % Not Estab. Monocytes (test code = 5905-5) 6 % Not Estab. Eos (test code = 713-8) 4 % Not Estab. Basos (test code = 706-2) 1 % Not Estab. Neutrophils (Absolute) (test 1.8 x10E3/uL 1.4-7.0 code = 751-8) Lymphs (Absolute) (test code = 2.0 x10E3/uL 0.7-3.1 731-0) Monocytes(Absolute) (test code 0.3 x10E3/uL 0.1-0.9 = 742-7) Eos (Absolute) (test code = 0.2 x10E3/uL 0.0-0.4 711-2) Baso (Absolute) (test code = 0.0 x10E3/uL 0.0-0.2 704-7) Immature Granulocytes (test 0 % Not Estab. code = 17374-9) Immature Grans (Abs) (test code 0.0 x10E3/uL 0.0-0.1 = 81920-4) NRBC (test code = 49506-0) Hematology Comments: (test code = 20856-7) [facility] Description: CBC With Differential/Nikcwqvq1243-19-91 23:55:00 Test Item Value Reference Range Interpretation Comments WBC (test code = 6690-2) 4.2 x10E3/uL 3.4-10.8 RBC (test code = 789-8) 3.63 x10E6/uL 3.77-5.28 L Hemoglobin (test code = 718-7) 9.3 g/dL 11.1-15.9 L Hematocrit (test code = 4544-3) 30.1 % 34.0-46.6 L MCV (test code = 787-2) 83 fL 79-97 MCH (test code = 785-6) 25.6 pg 26.6-33.0 L MCHC (test code = 786-4) 30.9 g/dL 31.5-35.7 L RDW (test code = 788-0) 14.2 % 11.7-15.4 Platelets (test code = 777-3) 387 x10E3/uL 150-450 Neutrophils (test code = 770-8) 42 % Not Estab. Lymphs (test code = 736-9) 47 % Not Estab. Monocytes (test code = 5905-5) 6 % Not Estab. Eos (test code = 713-8) 4 % Not Estab. Basos (test code = 706-2) 1 % Not Estab. Neutrophils (Absolute) (test 1.8 x10E3/uL 1.4-7.0 code = 751-8) Lymphs (Absolute) (test code = 2.0 x10E3/uL 0.7-3.1 731-0) Monocytes(Absolute) (test code 0.3 x10E3/uL 0.1-0.9 = 742-7) Eos (Absolute) (test code = 0.2 x10E3/uL 0.0-0.4 711-2) Baso (Absolute) (test code = 0.0 x10E3/uL 0.0-0.2 704-7) Immature Granulocytes (test 0 % Not Estab. code = 42672-2) Immature Grans (Abs) (test code 0.0 x10E3/uL 0.0-0.1 = 26365-1) NRBC (test code = 53869-2) Hematology Comments: (test code = 21047-3) [facility] Description: CBC With Differential/Gqafacor7096-91-36 23:55:00 Test Item Value Reference Range Interpretation Comments WBC (test code = 6690-2) 4.2 x10E3/uL 3.4-10.8 RBC (test code = 789-8) 3.63 x10E6/uL 3.77-5.28 L Hemoglobin (test code = 718-7) 9.3 g/dL 11.1-15.9 L Hematocrit (test code = 4544-3) 30.1 % 34.0-46.6 L MCV (test code = 787-2) 83 fL 79-97 MCH (test code = 785-6) 25.6 pg 26.6-33.0 L MCHC (test code = 786-4) 30.9 g/dL 31.5-35.7 L RDW (test code = 788-0) 14.2 % 11.7-15.4 Platelets (test code = 777-3) 387 x10E3/uL 150-450 Neutrophils (test code = 770-8) 42 % Not Estab. Lymphs (test code = 736-9) 47 % Not Estab. Monocytes (test code = 5905-5) 6 % Not Estab. Eos (test code = 713-8) 4 % Not Estab. Basos (test code = 706-2) 1 % Not Estab. Neutrophils (Absolute) (test 1.8 x10E3/uL 1.4-7.0 code = 751-8) Lymphs (Absolute) (test code = 2.0 x10E3/uL 0.7-3.1 731-0) Monocytes(Absolute) (test code 0.3 x10E3/uL 0.1-0.9 = 742-7) Eos (Absolute) (test code = 0.2 x10E3/uL 0.0-0.4 711-2) Baso (Absolute) (test code = 0.0 x10E3/uL 0.0-0.2 704-7) Immature Granulocytes (test 0 % Not Estab. code = 22301-1) Immature Grans (Abs) (test code 0.0 x10E3/uL 0.0-0.1 = 25795-0) NRBC (test code = 52093-8) Hematology Comments: (test code = 55740-2) [facility] Description: CBC With Differential/Ulafqdir4984-43-70 23:55:00 Test Item Value Reference Range Interpretation Comments WBC (test code = 6690-2) 4.2 x10E3/uL 3.4-10.8 RBC (test code = 789-8) 3.63 x10E6/uL 3.77-5.28 L Hemoglobin (test code = 718-7) 9.3 g/dL 11.1-15.9 L Hematocrit (test code = 4544-3) 30.1 % 34.0-46.6 L MCV (test code = 787-2) 83 fL 79-97 MCH (test code = 785-6) 25.6 pg 26.6-33.0 L MCHC (test code = 786-4) 30.9 g/dL 31.5-35.7 L RDW (test code = 788-0) 14.2 % 11.7-15.4 Platelets (test code = 777-3) 387 x10E3/uL 150-450 Neutrophils (test code = 770-8) 42 % Not Estab. Lymphs (test code = 736-9) 47 % Not Estab. Monocytes (test code = 5905-5) 6 % Not Estab. Eos (test code = 713-8) 4 % Not Estab. Basos (test code = 706-2) 1 % Not Estab. Neutrophils (Absolute) (test 1.8 x10E3/uL 1.4-7.0 code = 751-8) Lymphs (Absolute) (test code = 2.0 x10E3/uL 0.7-3.1 731-0) Monocytes(Absolute) (test code 0.3 x10E3/uL 0.1-0.9 = 742-7) Eos (Absolute) (test code = 0.2 x10E3/uL 0.0-0.4 711-2) Baso (Absolute) (test code = 0.0 x10E3/uL 0.0-0.2 704-7) Immature Granulocytes (test 0 % Not Estab. code = 17688-6) Immature Grans (Abs) (test code 0.0 x10E3/uL 0.0-0.1 = 61847-8) NRBC (test code = 07868-9) Hematology Comments: (test code = 11403-5) [facility] Description: CBC With Differential/Umhjbtkg2800-71-74 23:55:00 Test Item Value Reference Range Interpretation Comments WBC (test code = 6690-2) 4.2 x10E3/uL 3.4-10.8 RBC (test code = 789-8) 3.63 x10E6/uL 3.77-5.28 L Hemoglobin (test code = 718-7) 9.3 g/dL 11.1-15.9 L Hematocrit (test code = 4544-3) 30.1 % 34.0-46.6 L MCV (test code = 787-2) 83 fL 79-97 MCH (test code = 785-6) 25.6 pg 26.6-33.0 L MCHC (test code = 786-4) 30.9 g/dL 31.5-35.7 L RDW (test code = 788-0) 14.2 % 11.7-15.4 Platelets (test code = 777-3) 387 x10E3/uL 150-450 Neutrophils (test code = 770-8) 42 % Not Estab. Lymphs (test code = 736-9) 47 % Not Estab. Monocytes (test code = 5905-5) 6 % Not Estab. Eos (test code = 713-8) 4 % Not Estab. Basos (test code = 706-2) 1 % Not Estab. Neutrophils (Absolute) (test 1.8 x10E3/uL 1.4-7.0 code = 751-8) Lymphs (Absolute) (test code = 2.0 x10E3/uL 0.7-3.1 731-0) Monocytes(Absolute) (test code 0.3 x10E3/uL 0.1-0.9 = 742-7) Eos (Absolute) (test code = 0.2 x10E3/uL 0.0-0.4 711-2) Baso (Absolute) (test code = 0.0 x10E3/uL 0.0-0.2 704-7) Immature Granulocytes (test 0 % Not Estab. code = 99625-5) Immature Grans (Abs) (test code 0.0 x10E3/uL 0.0-0.1 = 77920-0) NRBC (test code = 57637-6) Hematology Comments: (test code = 58870-8) [facility] Description: CBC With Differential/[id number] 23:55:00 Test Item Value Reference Range Interpretation Comments WBC (test code = 6690-2) 4.2 x10E3/uL 3.4-10.8 RBC (test code = 789-8) 3.63 x10E6/uL 3.77-5.28 L Hemoglobin (test code = 718-7) 9.3 g/dL 11.1-15.9 L Hematocrit (test code = 4544-3) 30.1 % 34.0-46.6 L MCV (test code = 787-2) 83 fL 79-97 MCH (test code = 785-6) 25.6 pg 26.6-33.0 L MCHC (test code = 786-4) 30.9 g/dL 31.5-35.7 L RDW (test code = 788-0) 14.2 % 11.7-15.4 Platelets (test code = 777-3) 387 x10E3/uL 150-450 Neutrophils (test code = 770-8) 42 % Not Estab. Lymphs (test code = 736-9) 47 % Not Estab. Monocytes (test code = 5905-5) 6 % Not Estab. Eos (test code = 713-8) 4 % Not Estab. Basos (test code = 706-2) 1 % Not Estab. Neutrophils (Absolute) (test 1.8 x10E3/uL 1.4-7.0 code = 751-8) Lymphs (Absolute) (test code = 2.0 x10E3/uL 0.7-3.1 731-0) Monocytes(Absolute) (test code 0.3 x10E3/uL 0.1-0.9 = 742-7) Eos (Absolute) (test code = 0.2 x10E3/uL 0.0-0.4 711-2) Baso (Absolute) (test code = 0.0 x10E3/uL 0.0-0.2 704-7) Immature Granulocytes (test 0 % Not Estab. code = 99271-6) Immature Grans (Abs) (test code 0.0 x10E3/uL 0.0-0.1 = 67057-2) NRBC (test code = 23632-6) Hematology Comments: (test code = 48529-2) [facility] Description: CBC With Differential/[id number] 23:55:00 Test Item Value Reference Range Interpretation Comments WBC (test code = 6690-2) 4.2 x10E3/uL 3.4-10.8 RBC (test code = 789-8) 3.63 x10E6/uL 3.77-5.28 L Hemoglobin (test code = 718-7) 9.3 g/dL 11.1-15.9 L Hematocrit (test code = 4544-3) 30.1 % 34.0-46.6 L MCV (test code = 787-2) 83 fL 79-97 MCH (test code = 785-6) 25.6 pg 26.6-33.0 L MCHC (test code = 786-4) 30.9 g/dL 31.5-35.7 L RDW (test code = 788-0) 14.2 % 11.7-15.4 Platelets (test code = 777-3) 387 x10E3/uL 150-450 Neutrophils (test code = 770-8) 42 % Not Estab. Lymphs (test code = 736-9) 47 % Not Estab. Monocytes (test code = 5905-5) 6 % Not Estab. Eos (test code = 713-8) 4 % Not Estab. Basos (test code = 706-2) 1 % Not Estab. Neutrophils (Absolute) (test 1.8 x10E3/uL 1.4-7.0 code = 751-8) Lymphs (Absolute) (test code = 2.0 x10E3/uL 0.7-3.1 731-0) Monocytes(Absolute) (test code 0.3 x10E3/uL 0.1-0.9 = 742-7) Eos (Absolute) (test code = 0.2 x10E3/uL 0.0-0.4 711-2) Baso (Absolute) (test code = 0.0 x10E3/uL 0.0-0.2 704-7) Immature Granulocytes (test 0 % Not Estab. code = 36722-5) Immature Grans (Abs) (test code 0.0 x10E3/uL 0.0-0.1 = 62105-9) NRBC (test code = 49239-1) Hematology Comments: (test code = 88978-3) [facility] Description: CBC With Differential/Tizcbnid0205-34-97 23:55:00 Test Item Value Reference Range Interpretation Comments WBC (test code = 6690-2) 4.2 x10E3/uL 3.4-10.8 RBC (test code = 789-8) 3.63 x10E6/uL 3.77-5.28 L Hemoglobin (test code = 718-7) 9.3 g/dL 11.1-15.9 L Hematocrit (test code = 4544-3) 30.1 % 34.0-46.6 L MCV (test code = 787-2) 83 fL 79-97 MCH (test code = 785-6) 25.6 pg 26.6-33.0 L MCHC (test code = 786-4) 30.9 g/dL 31.5-35.7 L RDW (test code = 788-0) 14.2 % 11.7-15.4 Platelets (test code = 777-3) 387 x10E3/uL 150-450 Neutrophils (test code = 770-8) 42 % Not Estab. Lymphs (test code = 736-9) 47 % Not Estab. Monocytes (test code = 5905-5) 6 % Not Estab. Eos (test code = 713-8) 4 % Not Estab. Basos (test code = 706-2) 1 % Not Estab. Neutrophils (Absolute) (test 1.8 x10E3/uL 1.4-7.0 code = 751-8) Lymphs (Absolute) (test code = 2.0 x10E3/uL 0.7-3.1 731-0) Monocytes(Absolute) (test code 0.3 x10E3/uL 0.1-0.9 = 742-7) Eos (Absolute) (test code = 0.2 x10E3/uL 0.0-0.4 711-2) Baso (Absolute) (test code = 0.0 x10E3/uL 0.0-0.2 704-7) Immature Granulocytes (test 0 % Not Estab. code = 16817-9) Immature Grans (Abs) (test code 0.0 x10E3/uL 0.0-0.1 = 97296-8) NRBC (test code = 22572-1) Hematology Comments: (test code = 35144-4) [facility] Description: CBC With Differential/Xsexvods4745-32-40 23:55:00 Test Item Value Reference Range Interpretation Comments WBC (test code = 6690-2) 4.2 x10E3/uL 3.4-10.8 RBC (test code = 789-8) 3.63 x10E6/uL 3.77-5.28 L Hemoglobin (test code = 718-7) 9.3 g/dL 11.1-15.9 L Hematocrit (test code = 4544-3) 30.1 % 34.0-46.6 L MCV (test code = 787-2) 83 fL 79-97 MCH (test code = 785-6) 25.6 pg 26.6-33.0 L MCHC (test code = 786-4) 30.9 g/dL 31.5-35.7 L RDW (test code = 788-0) 14.2 % 11.7-15.4 Platelets (test code = 777-3) 387 x10E3/uL 150-450 Neutrophils (test code = 770-8) 42 % Not Estab. Lymphs (test code = 736-9) 47 % Not Estab. Monocytes (test code = 5905-5) 6 % Not Estab. Eos (test code = 713-8) 4 % Not Estab. Basos (test code = 706-2) 1 % Not Estab. Neutrophils (Absolute) (test 1.8 x10E3/uL 1.4-7.0 code = 751-8) Lymphs (Absolute) (test code = 2.0 x10E3/uL 0.7-3.1 731-0) Monocytes(Absolute) (test code 0.3 x10E3/uL 0.1-0.9 = 742-7) Eos (Absolute) (test code = 0.2 x10E3/uL 0.0-0.4 711-2) Baso (Absolute) (test code = 0.0 x10E3/uL 0.0-0.2 704-7) Immature Granulocytes (test 0 % Not Estab. code = 04210-7) Immature Grans (Abs) (test code 0.0 x10E3/uL 0.0-0.1 = 24747-6) NRBC (test code = 58185-6) Hematology Comments: (test code = 48073-5) [facility] Description: CBC With Differential/[id number] 23:55:00 Test Item Value Reference Range Interpretation Comments WBC (test code = 6690-2) 4.2 x10E3/uL 3.4-10.8 RBC (test code = 789-8) 3.63 x10E6/uL 3.77-5.28 L Hemoglobin (test code = 718-7) 9.3 g/dL 11.1-15.9 L Hematocrit (test code = 4544-3) 30.1 % 34.0-46.6 L MCV (test code = 787-2) 83 fL 79-97 MCH (test code = 785-6) 25.6 pg 26.6-33.0 L MCHC (test code = 786-4) 30.9 g/dL 31.5-35.7 L RDW (test code = 788-0) 14.2 % 11.7-15.4 Platelets (test code = 777-3) 387 x10E3/uL 150-450 Neutrophils (test code = 770-8) 42 % Not Estab. Lymphs (test code = 736-9) 47 % Not Estab. Monocytes (test code = 5905-5) 6 % Not Estab. Eos (test code = 713-8) 4 % Not Estab. Basos (test code = 706-2) 1 % Not Estab. Neutrophils (Absolute) (test 1.8 x10E3/uL 1.4-7.0 code = 751-8) Lymphs (Absolute) (test code = 2.0 x10E3/uL 0.7-3.1 731-0) Monocytes(Absolute) (test code 0.3 x10E3/uL 0.1-0.9 = 742-7) Eos (Absolute) (test code = 0.2 x10E3/uL 0.0-0.4 711-2) Baso (Absolute) (test code = 0.0 x10E3/uL 0.0-0.2 704-7) Immature Granulocytes (test 0 % Not Estab. code = 95947-5) Immature Grans (Abs) (test code 0.0 x10E3/uL 0.0-0.1 = 83418-8) NRBC (test code = 84916-4) Hematology Comments: (test code = 91955-8) [facility] Description: Hemoglobin A1c/Hemoglobin.total in Blood 2020-06-06 12:07:00 Test Item Value Reference Range Interpretation Comments Hemoglobin A1c (test code 5.4 % 4.8-5.6 . Prediabetes: 5.7 - = 4548-4) 6.4 Diabetes: > 6.4 Glycemic contro l for adults with baldomero betes: <7.0

P erformed by:
[facility] [place] ()

[facility] Description: Hemoglobin A1c/Hemoglobin.total in Blood 2020-06-06 12:07:00 Test Item Value Reference Range Interpretation Comments Hemoglobin A1c (test code 5.4 % 4.8-5.6 . Prediabetes: 5.7 - = 4548-4) 6.4 Diabetes: > 6.4 Glycemic contro l for adults with baldomero betes: <7.0

P erformed by:
[facility] [place] ()

[facility] Description: Hemoglobin A1c/Hemoglobin.total in Blood 2020-06-06 12:07:00 Test Item Value Reference Range Interpretation Comments Hemoglobin A1c (test code 5.4 % 4.8-5.6 . Prediabetes: 5.7 - = 4548-4) 6.4 Diabetes: > 6.4 Glycemic contro l for adults with baldomero betes: <7.0

P erformed by:
[facility] [place] ()

[facility] Description: Hemoglobin A1c/Hemoglobin.total in Blood 2020-06-06 12:07:00 Test Item Value Reference Range Interpretation Comments Hemoglobin A1c (test code 5.4 % 4.8-5.6 . Prediabetes: 5.7 - = 4548-4) 6.4 Diabetes: > 6.4 Glycemic contro l for adults with baldomero betes: <7.0

P erformed by:
[facility] ([place])

[facility] Description: Hemoglobin A1c/Hemoglobin.total in Blood 2020-06-06 12:07:00 Test Item Value Reference Range Interpretation Comments Hemoglobin A1c (test code 5.4 % 4.8-5.6 . Prediabetes: 5.7 - = 4548-4) 6.4 Diabetes: >6.4 Glycemic contro l for adults with baldomero betes: <7.0

P erformed by:
[facility] ([place])

[facility] Description: Hemoglobin A1c/Hemoglobin.total in Blood 2020-06-06 12:07:00 Test Item Value Reference Range Interpretation Comments Hemoglobin A1c (test code 5.4 % 4.8-5.6 . Prediabetes: 5.7 - = 4548-4) 6.4 Diabetes: >6.4 Glycemic contro l for adults with baldomero betes: <7.0

P erformed by:
[facility] ([place])

[facility] Description: Hemoglobin A1c/Hemoglobin.total in Blood 2020-06-06 12:07:00 Test Item Value Reference Range Interpretation Comments Hemoglobin A1c (test code 5.4 % 4.8-5.6 . Prediabetes: 5.7 - = 4548-4) 6.4 Diabetes: > 6.4 Glycemic contro l for adults with baldomero betes: <7.0

P erformed by:
[facility] ([place])

[facility] Description: Hemoglobin A1c/Hemoglobin.total in Blood 2020-06-06 12:07:00 Test Item Value Reference Range Interpretation Comments Hemoglobin A1c (test code 5.4 % 4.8-5.6 . Prediabetes: 5.7 - = 4548-4) 6.4 Diabetes: > 6.4 Glycemic contro l for adults with baldomero betes: <7.0

P erformed by:
[facility] ([place])

[facility] Description: Hemoglobin A1c/Hemoglobin.total in Blood 2020-06-06 12:07:00 Test Item Value Reference Range Interpretation Comments Hemoglobin A1c (test code 5.4 % 4.8-5.6 . Prediabetes: 5.7 - = 4548-4) 6.4 Diabetes: > 6.4 Glycemic contro l for adults with baldomero betes: <7.0

P erformed by:
[facility] ([place])

[facility] Description: Hemoglobin A1c/Hemoglobin.total in Blood 2020-06-06 12:07:00 Test Item Value Reference Range Interpretation Comments Hemoglobin A1c (test code 5.4 % 4.8-5.6 . Prediabetes: 5.7 - = 4548-4) 6.4 Diabetes: > 6.4 Glycemic contro l for adults with baldomero betes: <7.0

P erformed by:
[facility] ([place])

[facility] Description: Hemoglobin A1c/Hemoglobin.total in Blood 2020-06-06 12:07:00 Test Item Value Reference Range Interpretation Comments Hemoglobin A1c (test code 5.4 % 4.8-5.6 . Prediabetes: 5.7 - = 4548-4) 6.4 Diabetes: > 6.4 Glycemic contro l for adults with baldomero betes: <7.0

P erformed by:
[facility] ([place])

[facility] Description: Hemoglobin A1c/Hemoglobin.total in Blood 2020-06-06 12:07:00 Test Item Value Reference Range Interpretation Comments Hemoglobin A1c (test code 5.4 % 4.8-5.6 . Prediabetes: 5.7 - = 4548-4) 6.4 Diabetes: > 6.4 Glycemic contro l for adults with baldomero betes: <7.0

P erformed by:
[facility] ([place])

[facility] Description: Hemoglobin A1c/Hemoglobin.total in Blood 2020-06-06 12:07:00 Test Item Value Reference Range Interpretation Comments Hemoglobin A1c (test code 5.4 % 4.8-5.6 . Prediabetes: 5.7 - = 4548-4) 6.4 Diabetes: > 6.4 Glycemic contro l for adults with baldomero betes: <7.0

P erformed by:
[facility] ([place])

[facility] Description: Hemoglobin A1c/Hemoglobin.total in Blood 2020-06-06 12:07:00 Test Item Value Reference Range Interpretation Comments Hemoglobin A1c (test code 5.4 % 4.8-5.6 . Prediabetes: 5.7 - = 4548-4) 6.4 Diabetes: > 6.4 Glycemic contro l for adults with baldomero betes: <7.0

P erformed by:
[facility] ([place])

[facility] Description: Hemoglobin A1c/Hemoglobin.total in Blood 2020-06-06 12:07:00 Test Item Value Reference Range Interpretation Comments Hemoglobin A1c (test code 5.4 % 4.8-5.6 . Prediabetes: 5.7 - = 4548-4) 6.4 Diabetes: > 6.4 Glycemic contro l for adults with baldomero betes: <7.0

P erformed by:
[facility] ([place])

[facility] Description: Hemoglobin A1c/Hemoglobin.total in Blood 2020-06-06 12:07:00 Test Item Value Reference Range Interpretation Comments Hemoglobin A1c (test code 5.4 % 4.8-5.6 . Prediabetes: 5.7 - = 4548-4) 6.4 Diabetes: > 6.4 Glycemic contro l for adults with baldomero betes: <7.0

P erformed by:
[facility] [place] ([place])

[facility] Description: Hemoglobin A1c/Hemoglobin.total in Blood 2020-06-06 12:07:00 Test Item Value Reference Range Interpretation Comments Hemoglobin A1c (test code 5.4 % 4.8-5.6 . Prediabetes: 5.7 - = 4548-4) 6.4 Diabetes: > 6.4 Glycemic contro l for adults with baldomero betes: <7.0

P erformed by:
[facility] [place] ([place])

[facility] Description: Hemoglobin A1c/Hemoglobin.total in Blood 2020-06-06 12:07:00 Test Item Value Reference Range Interpretation Comments Hemoglobin A1c (test code 5.4 % 4.8-5.6 . Prediabetes: 5.7 - = 4548-4) 6.4 Diabetes: > 6.4 Glycemic contro l for adults with baldomero betes: <7.0

P erformed by:
[facility] [place] ([place])

[facility] Description: Hemoglobin A1c/Hemoglobin.total in Blood 2020-06-06 12:07:00 Test Item Value Reference Range Interpretation Comments Hemoglobin A1c (test code 5.4 % 4.8-5.6 . Prediabetes: 5.7 - = 4548-4) 6.4 Diabetes: > 6.4 Glycemic contro l for adults with baldomero betes: <7.0

P erformed by:
[facility] [place] ([place])

[facility] Description: Hemoglobin A1c/Hemoglobin.total in Blood 2020-06-06 12:07:00 Test Item Value Reference Range Interpretation Comments Hemoglobin A1c (test code 5.4 % 4.8-5.6 . Prediabetes: 5.7 - = 4548-4) 6.4 Diabetes: > 6.4 Glycemic contro l for adults with baldomero betes: <7.0

P erformed by:
[facility] [place] ([place])

[facility] Description: Hemoglobin A1c/Hemoglobin.total in Blood 2020-06-06 12:07:00 Test Item Value Reference Range Interpretation Comments Hemoglobin A1c (test code 5.4 % 4.8-5.6 . Prediabetes: 5.7 - = 4548-4) 6.4 Diabetes: > 6.4 Glycemic contro l for adults with baldomero betes: <7.0

P erformed by:
[facility] ([place])

[facility] Description: Hemoglobin A1c/Hemoglobin.total in Blood 2020-06-06 12:07:00 Test Item Value Reference Range Interpretation Comments Hemoglobin A1c (test code 5.4 % 4.8-5.6 . Prediabetes: 5.7 - = 4548-4) 6.4 Diabetes: > 6.4 Glycemic contro l for adults with baldomero betes: <7.0

P erformed by:
[facility] ([place])

[facility] Description: Hemoglobin A1c/Hemoglobin.total in Blood 2020-06-06 12:07:00 Test Item Value Reference Range Interpretation Comments Hemoglobin A1c (test code 5.4 % 4.8-5.6 . Prediabetes: 5.7 - = 4548-4) 6.4 Diabetes: > 6.4 Glycemic contro l for adults with baldomero betes: <7.0

P erformed by:
[facility] ([place])

[facility] Description: Hemoglobin A1c/Hemoglobin.total in Blood 2020-06-06 12:07:00 Test Item Value Reference Range Interpretation Comments Hemoglobin A1c (test code 5.4 % 4.8-5.6 . Prediabetes: 5.7 - = 4548-4) 6.4 Diabetes: > 6.4 Glycemic contro l for adults with baldomero betes: <7.0

P erformed by:
[facility] ([place])

[facility] Description: Hemoglobin A1c/Hemoglobin.total in Blood 2020-06-06 12:07:00 Test Item Value Reference Range Interpretation Comments Hemoglobin A1c (test code 5.4 % 4.8-5.6 . Prediabetes: 5.7 - = 4548-4) 6.4 Diabetes: > 6.4 Glycemic contro l for adults with baldomero betes: <7.0

P erformed by:
[facility] ([place])

[facility] Description: Hemoglobin A1c/Hemoglobin.total in Blood 2020-06-06 12:07:00 Test Item Value Reference Range Interpretation Comments Hemoglobin A1c (test code 5.4 % 4.8-5.6 . Prediabetes: 5.7 - = 4548-4) 6.4 Diabetes: > 6.4 Glycemic contro l for adults with baldomero betes: <7.0

P erformed by:
[facility] ([place])

[facility] Description: Hemoglobin A1c/Hemoglobin.total in Blood 2020-06-06 12:07:00 Test Item Value Reference Range Interpretation Comments Hemoglobin A1c (test code 5.4 % 4.8-5.6 . Prediabetes: 5.7 - = 4548-4) 6.4 Diabetes: > 6.4 Glycemic contro l for adults with baldomero betes: <7.0

P erformed by:
[facility] ()

[facility] Description: Hemoglobin A1c/Hemoglobin.total in Blood 2020-06-06 12:07:00 Test Item Value Reference Range Interpretation Comments Hemoglobin A1c (test code 5.4 % 4.8-5.6 . Prediabetes: 5.7 - = 4548-4) 6.4 Diabetes: > 6.4 Glycemic contro l for adults with baldomero betes: <7.0

P erformed by:
[facility] ()

[facility] Description: Hemoglobin A1c/Hemoglobin.total in Blood 2020-06-06 12:07:00 Test Item Value Reference Range Interpretation Comments Hemoglobin A1c (test code 5.4 % 4.8-5.6 . Prediabetes: 5.7 - = 4548-4) 6.4 Diabetes: > 6.4 Glycemic contro l for adults with baldomero betes: <7.0

P erformed by:
[facility] ([place])

[facility] Description: Hemoglobin A1c/Hemoglobin.total in Blood 2020-06-06 12:07:00 Test Item Value Reference Range Interpretation Comments Hemoglobin A1c (test code 5.4 % 4.8-5.6 . Prediabetes: 5.7 - = 4548-4) 6.4 Diabetes: > 6.4 Glycemic contro l for adults with baldomreo betes: <7.0

P erformed by:
[facility] ([place])

[facility] Description: Hemoglobin A1c/Hemoglobin.total in Blood 2020-06-06 12:07:00 Test Item Value Reference Range Interpretation Comments Hemoglobin A1c (test code 5.4 % 4.8-5.6 . Prediabetes: 5.7 - = 4548-4) 6.4 Diabetes: > 6.4 Glycemic contro l for adults with baldomero betes: <7.0

P erformed by:
[facility] ([place])

[facility] Description: Hemoglobin A1c/Hemoglobin.total in Blood 2020-06-06 12:07:00 Test Item Value Reference Range Interpretation Comments Hemoglobin A1c (test code 5.4 % 4.8-5.6 . Prediabetes: 5.7 - = 4548-4) 6.4 Diabetes: > 6.4 Glycemic contro l for adults with baldomero betes: <7.0

P erformed by:
[facility] ([place])

[facility] Description: Hemoglobin A1c/Hemoglobin.total in Blood 2020-06-06 12:07:00 Test Item Value Reference Range Interpretation Comments Hemoglobin A1c (test code 5.4 % 4.8-5.6 . Prediabetes: 5.7 - = 4548-4) 6.4 Diabetes: > 6.4 Glycemic contro l for adults with baldomero betes: <7.0

P erformed by:
[facility] ([place])

[facility] Description: Hemoglobin A1c/Hemoglobin.total in Blood 2020-06-06 12:07:00 Test Item Value Reference Range Interpretation Comments Hemoglobin A1c (test code 5.4 % 4.8-5.6 . Prediabetes: 5.7 - = 4548-4) 6.4 Diabetes: > 6.4 Glycemic contro l for adults with baldomero betes: <7.0

P erformed by:
[facility] ([place])

[facility] Description: Thyrotropin [Units/volume] in Serum or Plasma by Detection limit <= 0.05 mIU/[id number] 03:17:00 Test Item Value Reference Range Interpretation Comments TSH (test code = 64539-7) 1.370 uIU/mL 0.450-4.500 [facility] Description: Thyrotropin [Units/volume] in Serum or Plasma by Detection limit <= 0.05 mIU/[id number] 03:17:00 Test Item Value Reference Range Interpretation Comments TSH (test code = 96281-1) 1.370 uIU/mL 0.450-4.500 [facility] Description: Thyrotropin [Units/volume] in Serum or Plasma by Detection limit <= 0.05 mIU/[id number] 03:17:00 Test Item Value Reference Range Interpretation Comments TSH (test code = 27452-8) 1.370 uIU/mL 0.450-4.500 [facility] Description: Thyrotropin [Units/volume] in Serum or Plasma by Detection limit <= 0.05 mIU/[id number] 03:17:00 Test Item Value Reference Range Interpretation Comments TSH (test code = 53331-1) 1.370 uIU/mL 0.450-4.500 [facility] Description: Thyrotropin [Units/volume] in Serum or Plasma by Detection limit <= 0.05 mIU/[id number] 03:17:00 Test Item Value Reference Range Interpretation Comments TSH (test code = 24217-8) 1.370 uIU/mL 0.450-4.500 [facility] Description: Thyrotropin [Units/volume] in Serum or Plasma by Detection limit <= 0.05 mIU/[id number] 03:17:00 Test Item Value Reference Range Interpretation Comments TSH (test code = 62042-1) 1.370 uIU/mL 0.450-4.500 [facility] Description: Thyrotropin [Units/volume] in Serum or Plasma by Detection limit <= 0.05 mIU/[id number] 03:17:00 Test Item Value Reference Range Interpretation Comments TSH (test code = 60116-8) 1.370 uIU/mL 0.450-4.500 [facility] Description: Thyrotropin [Units/volume] in Serum or Plasma by Detection limit <= 0.05 mIU/[id number] 03:17:00 Test Item Value Reference Range Interpretation Comments TSH (test code = 02089-2) 1.370 uIU/mL 0.450-4.500 [facility] Description: Thyrotropin [Units/volume] in Serum or Plasma by Detection limit <= 0.05 mIU/[id number] 03:17:00 Test Item Value Reference Range Interpretation Comments TSH (test code = 53260-1) 1.370 uIU/mL 0.450-4.500 [facility] Description: Thyrotropin [Units/volume] in Serum or Plasma by Detection limit <= 0.05 mIU/[id number] 03:17:00 Test Item Value Reference Range Interpretation Comments TSH (test code = 05564-7) 1.370 uIU/mL 0.450-4.500 [facility] Description: Thyrotropin [Units/volume] in Serum or Plasma by Detection limit <= 0.05 mIU/[id number] 03:17:00 Test Item Value Reference Range Interpretation Comments TSH (test code = 43297-8) 1.370 uIU/mL 0.450-4.500 [facility] Description: Thyrotropin [Units/volume] in Serum or Plasma by Detection limit <= 0.05 mIU/[id number] 03:17:00 Test Item Value Reference Range Interpretation Comments TSH (test code = 94785-5) 1.370 uIU/mL 0.450-4.500 [facility] Description: Thyrotropin [Units/volume] in Serum or Plasma by Detection limit <= 0.05 mIU/[id number] 03:17:00 Test Item Value Reference Range Interpretation Comments TSH (test code = 83312-3) 1.370 uIU/mL 0.450-4.500 [facility] Description: Thyrotropin [Units/volume] in Serum or Plasma by Detection limit <= 0.05 mIU/[id number] 03:17:00 Test Item Value Reference Range Interpretation Comments TSH (test code = 60663-4) 1.370 uIU/mL 0.450-4.500 [facility] Description: Thyrotropin [Units/volume] in Serum or Plasma by Detection limit <= 0.05 mIU/[id number] 03:17:00 Test Item Value Reference Range Interpretation Comments TSH (test code = 29174-8) 1.370 uIU/mL 0.450-4.500 [facility] Description: Thyrotropin [Units/volume] in Serum or Plasma by Detection limit <= 0.05 mIU/[id number] 03:17:00 Test Item Value Reference Range Interpretation Comments TSH (test code = 09085-1) 1.370 uIU/mL 0.450-4.500 [facility] Description: Thyrotropin [Units/volume] in Serum or Plasma by Detection limit <= 0.05 mIU/[id number] 03:17:00 Test Item Value Reference Range Interpretation Comments TSH (test code = 53825-3) 1.370 uIU/mL 0.450-4.500 [facility] Description: Thyrotropin [Units/volume] in Serum or Plasma by Detection limit <= 0.05 mIU/[id number] 03:17:00 Test Item Value Reference Range Interpretation Comments TSH (test code = 49141-2) 1.370 uIU/mL 0.450-4.500 [facility] Description: Thyrotropin [Units/volume] in Serum or Plasma by Detection limit <= 0.05 mIU/[id number] 03:17:00 Test Item Value Reference Range Interpretation Comments TSH (test code = 10488-4) 1.370 uIU/mL 0.450-4.500 [facility] Description: Thyrotropin [Units/volume] in Serum or Plasma by Detection limit <= 0.05 mIU/[id number] 03:17:00 Test Item Value Reference Range Interpretation Comments TSH (test code = 81323-3) 1.370 uIU/mL 0.450-4.500 [facility] Description: Thyrotropin [Units/volume] in Serum or Plasma by Detection limit <= 0.05 mIU/[id number] 03:17:00 Test Item Value Reference Range Interpretation Comments TSH (test code = 97999-7) 1.370 uIU/mL 0.450-4.500 [facility] Description: Thyrotropin [Units/volume] in Serum or Plasma by Detection limit <= 0.05 mIU/[id number] 03:17:00 Test Item Value Reference Range Interpretation Comments TSH (test code = 87594-2) 1.370 uIU/mL 0.450-4.500 [facility] Description: Thyrotropin [Units/volume] in Serum or Plasma by Detection limit <= 0.05 mIU/[id number] 03:17:00 Test Item Value Reference Range Interpretation Comments TSH (test code = 92627-7) 1.370 uIU/mL 0.450-4.500 [facility] Description: Thyrotropin [Units/volume] in Serum or Plasma by Detection limit <= 0.05 mIU/[id number] 03:17:00 Test Item Value Reference Range Interpretation Comments TSH (test code = 06756-5) 1.370 uIU/mL 0.450-4.500 [facility] Description: Thyrotropin [Units/volume] in Serum or Plasma by Detection limit <= 0.05 mIU/[id number] 03:17:00 Test Item Value Reference Range Interpretation Comments TSH (test code = 89586-2) 1.370 uIU/mL 0.450-4.500 [facility] Description: Thyrotropin [Units/volume] in Serum or Plasma by Detection limit <= 0.05 mIU/[id number] 03:17:00 Test Item Value Reference Range Interpretation Comments TSH (test code = 81649-8) 1.370 uIU/mL 0.450-4.500 [facility] Description: Thyrotropin [Units/volume] in Serum or Plasma by Detection limit <= 0.05 mIU/[id number] 03:17:00 Test Item Value Reference Range Interpretation Comments TSH (test code = 97678-6) 1.370 uIU/mL 0.450-4.500 [facility] Description: Thyrotropin [Units/volume] in Serum or Plasma by Detection limit <= 0.05 mIU/[id number] 03:17:00 Test Item Value Reference Range Interpretation Comments TSH (test code = 39055-4) 1.370 uIU/mL 0.450-4.500 [facility] Description: Thyrotropin [Units/volume] in Serum or Plasma by Detection limit <= 0.05 mIU/[id number] 03:17:00 Test Item Value Reference Range Interpretation Comments TSH (test code = 65075-9) 1.370 uIU/mL 0.450-4.500 [facility] Description: Thyrotropin [Units/volume] in Serum or Plasma by Detection limit <= 0.05 mIU/[id number] 03:17:00 Test Item Value Reference Range Interpretation Comments TSH (test code = 94746-8) 1.370 uIU/mL 0.450-4.500 [facility] Description: Thyrotropin [Units/volume] in Serum or Plasma by Detection limit <= 0.05 mIU/[id number] 03:17:00 Test Item Value Reference Range Interpretation Comments TSH (test code = 75543-3) 1.370 uIU/mL 0.450-4.500 [facility] Description: Thyrotropin [Units/volume] in Serum or Plasma by Detection limit <= 0.05 mIU/[id number] 03:17:00 Test Item Value Reference Range Interpretation Comments TSH (test code = 80054-7) 1.370 uIU/mL 0.450-4.500 [facility] Description: Thyrotropin [Units/volume] in Serum or Plasma by Detection limit <= 0.05 mIU/[id number] 03:17:00 Test Item Value Reference Range Interpretation Comments TSH (test code = 57359-5) 1.370 uIU/mL 0.450-4.500 [facility] Description: Thyrotropin [Units/volume] in Serum or Plasma by Detection limit <= 0.05 mIU/[id number] 03:17:00 Test Item Value Reference Range Interpretation Comments TSH (test code = 61873-1) 1.370 uIU/mL 0.450-4.500 [facility] Description: Thyrotropin [Units/volume] in Serum or Plasma by Detection limit <= 0.05 mIU/[id number] 03:17:00 Test Item Value Reference Range Interpretation Comments TSH (test code = 22850-7) 1.370 uIU/mL 0.450-4.500 [facility] Description: Thyrotropin [Units/volume] in Serum or Plasma by Detection limit <= 0.05 mIU/[id number] 03:17:00 Test Item Value Reference Range Interpretation Comments TSH (test code = 19406-6) 1.370 uIU/mL 0.450-4.500 [facility] Description: Thyrotropin [Units/volume] in Serum or Plasma by Detection limit <= 0.05 mIU/[id number] 03:17:00 Test Item Value Reference Range Interpretation Comments TSH (test code = 29538-5) 1.370 uIU/mL 0.450-4.500 [facility] Description: CBC With Differential/[id number] 02:14:00 Test Item Value Reference Range Interpretation Comments WBC (test code = 6690-2) 7.6 x10E3/uL 3.4-10.8 RBC (test code = 789-8) 3.81 x10E6/uL 3.77-5.28 Hemoglobin (test code = 718-7) 10.5 g/dL 11.1-15.9 L Hematocrit (test code = 4544-3) 32.3 % 34.0-46.6 L MCV (test code = 787-2) 85 fL 79-97 MCH (test code = 785-6) 27.6 pg 26.6-33.0 MCHC (test code = 786-4) 32.5 g/dL 31.5-35.7 RDW (test code = 788-0) 14.8 % 11.7-15.4 Platelets (test code = 777-3) 379 x10E3/uL 150-450 Neutrophils (test code = 770-8) 53 % Not Estab. Lymphs (test code = 736-9) 41 % Not Estab. Monocytes (test code = 5905-5) 4 % Not Estab. Eos (test code = 713-8) 1 % Not Estab. Basos (test code = 706-2) 1 % Not Estab. Neutrophils (Absolute) (test 4.1 x10E3/uL 1.4-7.0 code = 751-8) Lymphs (Absolute) (test code = 3.1 x10E3/uL 0.7-3.1 731-0) Monocytes(Absolute) (test code 0.3 x10E3/uL 0.1-0.9 = 742-7) Eos (Absolute) (test code = 0.0 x10E3/uL 0.0-0.4 711-2) Baso (Absolute) (test code = 0.0 x10E3/uL 0.0-0.2 704-7) Immature Granulocytes (test 0 % Not Estab. code = 43566-5) Immature Grans (Abs) (test code 0.0 x10E3/uL 0.0-0.1 = 60083-2) NRBC (test code = 49925-0) Hematology Comments: (test code = 06368-3) [facility] Description: CBC With Differential/[id number] 02:14:00 Test Item Value Reference Range Interpretation Comments WBC (test code = 6690-2) 7.6 x10E3/uL 3.4-10.8 RBC (test code = 789-8) 3.81 x10E6/uL 3.77-5.28 Hemoglobin (test code = 718-7) 10.5 g/dL 11.1-15.9 L Hematocrit (test code = 4544-3) 32.3 % 34.0-46.6 L MCV (test code = 787-2) 85 fL 79-97 MCH (test code = 785-6) 27.6 pg 26.6-33.0 MCHC (test code = 786-4) 32.5 g/dL 31.5-35.7 RDW (test code = 788-0) 14.8 % 11.7-15.4 Platelets (test code = 777-3) 379 x10E3/uL 150-450 Neutrophils (test code = 770-8) 53 % Not Estab. Lymphs (test code = 736-9) 41 % Not Estab. Monocytes (test code = 5905-5) 4 % Not Estab. Eos (test code = 713-8) 1 % Not Estab. Basos (test code = 706-2) 1 % Not Estab. Neutrophils (Absolute) (test 4.1 x10E3/uL 1.4-7.0 code = 751-8) Lymphs (Absolute) (test code = 3.1 x10E3/uL 0.7-3.1 731-0) Monocytes(Absolute) (test code 0.3 x10E3/uL 0.1-0.9 = 742-7) Eos (Absolute) (test code = 0.0 x10E3/uL 0.0-0.4 711-2) Baso (Absolute) (test code = 0.0 x10E3/uL 0.0-0.2 704-7) Immature Granulocytes (test 0 % Not Estab. code = 27720-6) Immature Grans (Abs) (test code 0.0 x10E3/uL 0.0-0.1 = 79678-6) NRBC (test code = 75051-8) Hematology Comments: (test code = 59913-4) [facility] Description: CBC With Differential/Kflhvmpj8644-12-45 02:14:00 Test Item Value Reference Range Interpretation Comments WBC (test code = 6690-2) 7.6 x10E3/uL 3.4-10.8 RBC (test code = 789-8) 3.81 x10E6/uL 3.77-5.28 Hemoglobin (test code = 718-7) 10.5 g/dL 11.1-15.9 L Hematocrit (test code = 4544-3) 32.3 % 34.0-46.6 L MCV (test code = 787-2) 85 fL 79-97 MCH (test code = 785-6) 27.6 pg 26.6-33.0 MCHC (test code = 786-4) 32.5 g/dL 31.5-35.7 RDW (test code = 788-0) 14.8 % 11.7-15.4 Platelets (test code = 777-3) 379 x10E3/uL 150-450 Neutrophils (test code = 770-8) 53 % Not Estab. Lymphs (test code = 736-9) 41 % Not Estab. Monocytes (test code = 5905-5) 4 % Not Estab. Eos (test code = 713-8) 1 % Not Estab. Basos (test code = 706-2) 1 % Not Estab. Neutrophils (Absolute) (test 4.1 x10E3/uL 1.4-7.0 code = 751-8) Lymphs (Absolute) (test code = 3.1 x10E3/uL 0.7-3.1 731-0) Monocytes(Absolute) (test code 0.3 x10E3/uL 0.1-0.9 = 742-7) Eos (Absolute) (test code = 0.0 x10E3/uL 0.0-0.4 711-2) Baso (Absolute) (test code = 0.0 x10E3/uL 0.0-0.2 704-7) Immature Granulocytes (test 0 % Not Estab. code = 87007-8) Immature Grans (Abs) (test code 0.0 x10E3/uL 0.0-0.1 = 66496-7) NRBC (test code = 89625-7) Hematology Comments: (test code = 14515-6) [facility] Description: CBC With Differential/Iabyqqdu1208-48-46 02:14:00 Test Item Value Reference Range Interpretation Comments WBC (test code = 6690-2) 7.6 x10E3/uL 3.4-10.8 RBC (test code = 789-8) 3.81 x10E6/uL 3.77-5.28 Hemoglobin (test code = 718-7) 10.5 g/dL 11.1-15.9 L Hematocrit (test code = 4544-3) 32.3 % 34.0-46.6 L MCV (test code = 787-2) 85 fL 79-97 MCH (test code = 785-6) 27.6 pg 26.6-33.0 MCHC (test code = 786-4) 32.5 g/dL 31.5-35.7 RDW (test code = 788-0) 14.8 % 11.7-15.4 Platelets (test code = 777-3) 379 x10E3/uL 150-450 Neutrophils (test code = 770-8) 53 % Not Estab. Lymphs (test code = 736-9) 41 % Not Estab. Monocytes (test code = 5905-5) 4 % Not Estab. Eos (test code = 713-8) 1 % Not Estab. Basos (test code = 706-2) 1 % Not Estab. Neutrophils (Absolute) (test 4.1 x10E3/uL 1.4-7.0 code = 751-8) Lymphs (Absolute) (test code = 3.1 x10E3/uL 0.7-3.1 731-0) Monocytes(Absolute) (test code 0.3 x10E3/uL 0.1-0.9 = 742-7) Eos (Absolute) (test code = 0.0 x10E3/uL 0.0-0.4 711-2) Baso (Absolute) (test code = 0.0 x10E3/uL 0.0-0.2 704-7) Immature Granulocytes (test 0 % Not Estab. code = 46294-8) Immature Grans (Abs) (test code 0.0 x10E3/uL 0.0-0.1 = 74314-9) NRBC (test code = 77222-4) Hematology Comments: (test code = 13345-9) [facility] Description: CBC With Differential/Cwfrqmpc7912-33-75 02:14:00 Test Item Value Reference Range Interpretation Comments WBC (test code = 6690-2) 7.6 x10E3/uL 3.4-10.8 RBC (test code = 789-8) 3.81 x10E6/uL 3.77-5.28 Hemoglobin (test code = 718-7) 10.5 g/dL 11.1-15.9 L Hematocrit (test code = 4544-3) 32.3 % 34.0-46.6 L MCV (test code = 787-2) 85 fL 79-97 MCH (test code = 785-6) 27.6 pg 26.6-33.0 MCHC (test code = 786-4) 32.5 g/dL 31.5-35.7 RDW (test code = 788-0) 14.8 % 11.7-15.4 Platelets (test code = 777-3) 379 x10E3/uL 150-450 Neutrophils (test code = 770-8) 53 % Not Estab. Lymphs (test code = 736-9) 41 % Not Estab. Monocytes (test code = 5905-5) 4 % Not Estab. Eos (test code = 713-8) 1 % Not Estab. Basos (test code = 706-2) 1 % Not Estab. Neutrophils (Absolute) (test 4.1 x10E3/uL 1.4-7.0 code = 751-8) Lymphs (Absolute) (test code = 3.1 x10E3/uL 0.7-3.1 731-0) Monocytes(Absolute) (test code 0.3 x10E3/uL 0.1-0.9 = 742-7) Eos (Absolute) (test code = 0.0 x10E3/uL 0.0-0.4 711-2) Baso (Absolute) (test code = 0.0 x10E3/uL 0.0-0.2 704-7) Immature Granulocytes (test 0 % Not Estab. code = 01299-6) Immature Grans (Abs) (test code 0.0 x10E3/uL 0.0-0.1 = 97422-1) NRBC (test code = 77588-1) Hematology Comments: (test code = 64745-5) [facility] Description: CBC With Differential/[id number] 02:14:00 Test Item Value Reference Range Interpretation Comments WBC (test code = 6690-2) 7.6 x10E3/uL 3.4-10.8 RBC (test code = 789-8) 3.81 x10E6/uL 3.77-5.28 Hemoglobin (test code = 718-7) 10.5 g/dL 11.1-15.9 L Hematocrit (test code = 4544-3) 32.3 % 34.0-46.6 L MCV (test code = 787-2) 85 fL 79-97 MCH (test code = 785-6) 27.6 pg 26.6-33.0 MCHC (test code = 786-4) 32.5 g/dL 31.5-35.7 RDW (test code = 788-0) 14.8 % 11.7-15.4 Platelets (test code = 777-3) 379 x10E3/uL 150-450 Neutrophils (test code = 770-8) 53 % Not Estab. Lymphs (test code = 736-9) 41 % Not Estab. Monocytes (test code = 5905-5) 4 % Not Estab. Eos (test code = 713-8) 1 % Not Estab. Basos (test code = 706-2) 1 % Not Estab. Neutrophils (Absolute) (test 4.1 x10E3/uL 1.4-7.0 code = 751-8) Lymphs (Absolute) (test code = 3.1 x10E3/uL 0.7-3.1 731-0) Monocytes(Absolute) (test code 0.3 x10E3/uL 0.1-0.9 = 742-7) Eos (Absolute) (test code = 0.0 x10E3/uL 0.0-0.4 711-2) Baso (Absolute) (test code = 0.0 x10E3/uL 0.0-0.2 704-7) Immature Granulocytes (test 0 % Not Estab. code = 50500-0) Immature Grans (Abs) (test code 0.0 x10E3/uL 0.0-0.1 = 82402-7) NRBC (test code = 57858-1) Hematology Comments: (test code = 05299-4) [facility] Description: CBC With Differential/Fbjcqtvu3592-88-54 02:14:00 Test Item Value Reference Range Interpretation Comments WBC (test code = 6690-2) 7.6 x10E3/uL 3.4-10.8 RBC (test code = 789-8) 3.81 x10E6/uL 3.77-5.28 Hemoglobin (test code = 718-7) 10.5 g/dL 11.1-15.9 L Hematocrit (test code = 4544-3) 32.3 % 34.0-46.6 L MCV (test code = 787-2) 85 fL 79-97 MCH (test code = 785-6) 27.6 pg 26.6-33.0 MCHC (test code = 786-4) 32.5 g/dL 31.5-35.7 RDW (test code = 788-0) 14.8 % 11.7-15.4 Platelets (test code = 777-3) 379 x10E3/uL 150-450 Neutrophils (test code = 770-8) 53 % Not Estab. Lymphs (test code = 736-9) 41 % Not Estab. Monocytes (test code = 5905-5) 4 % Not Estab. Eos (test code = 713-8) 1 % Not Estab. Basos (test code = 706-2) 1 % Not Estab. Neutrophils (Absolute) (test 4.1 x10E3/uL 1.4-7.0 code = 751-8) Lymphs (Absolute) (test code = 3.1 x10E3/uL 0.7-3.1 731-0) Monocytes(Absolute) (test code 0.3 x10E3/uL 0.1-0.9 = 742-7) Eos (Absolute) (test code = 0.0 x10E3/uL 0.0-0.4 711-2) Baso (Absolute) (test code = 0.0 x10E3/uL 0.0-0.2 704-7) Immature Granulocytes (test 0 % Not Estab. code = 05886-8) Immature Grans (Abs) (test code 0.0 x10E3/uL 0.0-0.1 = 91346-1) NRBC (test code = 98995-8) Hematology Comments: (test code = 21732-6) [facility] Description: CBC With Differential/Voxxarwo2668-56-41 02:14:00 Test Item Value Reference Range Interpretation Comments WBC (test code = 6690-2) 7.6 x10E3/uL 3.4-10.8 RBC (test code = 789-8) 3.81 x10E6/uL 3.77-5.28 Hemoglobin (test code = 718-7) 10.5 g/dL 11.1-15.9 L Hematocrit (test code = 4544-3) 32.3 % 34.0-46.6 L MCV (test code = 787-2) 85 fL 79-97 MCH (test code = 785-6) 27.6 pg 26.6-33.0 MCHC (test code = 786-4) 32.5 g/dL 31.5-35.7 RDW (test code = 788-0) 14.8 % 11.7-15.4 Platelets (test code = 777-3) 379 x10E3/uL 150-450 Neutrophils (test code = 770-8) 53 % Not Estab. Lymphs (test code = 736-9) 41 % Not Estab. Monocytes (test code = 5905-5) 4 % Not Estab. Eos (test code = 713-8) 1 % Not Estab. Basos (test code = 706-2) 1 % Not Estab. Neutrophils (Absolute) (test 4.1 x10E3/uL 1.4-7.0 code = 751-8) Lymphs (Absolute) (test code = 3.1 x10E3/uL 0.7-3.1 731-0) Monocytes(Absolute) (test code 0.3 x10E3/uL 0.1-0.9 = 742-7) Eos (Absolute) (test code = 0.0 x10E3/uL 0.0-0.4 711-2) Baso (Absolute) (test code = 0.0 x10E3/uL 0.0-0.2 704-7) Immature Granulocytes (test 0 % Not Estab. code = 54170-8) Immature Grans (Abs) (test code 0.0 x10E3/uL 0.0-0.1 = 85753-4) NRBC (test code = 48978-8) Hematology Comments: (test code = 37811-0) [facility] Description: CBC With Differential/Fhnqkssd5020-82-03 02:14:00 Test Item Value Reference Range Interpretation Comments WBC (test code = 6690-2) 7.6 x10E3/uL 3.4-10.8 RBC (test code = 789-8) 3.81 x10E6/uL 3.77-5.28 Hemoglobin (test code = 718-7) 10.5 g/dL 11.1-15.9 L Hematocrit (test code = 4544-3) 32.3 % 34.0-46.6 L MCV (test code = 787-2) 85 fL 79-97 MCH (test code = 785-6) 27.6 pg 26.6-33.0 MCHC (test code = 786-4) 32.5 g/dL 31.5-35.7 RDW (test code = 788-0) 14.8 % 11.7-15.4 Platelets (test code = 777-3) 379 x10E3/uL 150-450 Neutrophils (test code = 770-8) 53 % Not Estab. Lymphs (test code = 736-9) 41 % Not Estab. Monocytes (test code = 5905-5) 4 % Not Estab. Eos (test code = 713-8) 1 % Not Estab. Basos (test code = 706-2) 1 % Not Estab. Neutrophils (Absolute) (test 4.1 x10E3/uL 1.4-7.0 code = 751-8) Lymphs (Absolute) (test code = 3.1 x10E3/uL 0.7-3.1 731-0) Monocytes(Absolute) (test code 0.3 x10E3/uL 0.1-0.9 = 742-7) Eos (Absolute) (test code = 0.0 x10E3/uL 0.0-0.4 711-2) Baso (Absolute) (test code = 0.0 x10E3/uL 0.0-0.2 704-7) Immature Granulocytes (test 0 % Not Estab. code = 31397-7) Immature Grans (Abs) (test code 0.0 x10E3/uL 0.0-0.1 = 15735-2) NRBC (test code = 61320-2) Hematology Comments: (test code = 97881-2) [facility] Description: CBC With Differential/[id number] 02:14:00 Test Item Value Reference Range Interpretation Comments WBC (test code = 6690-2) 7.6 x10E3/uL 3.4-10.8 RBC (test code = 789-8) 3.81 x10E6/uL 3.77-5.28 Hemoglobin (test code = 718-7) 10.5 g/dL 11.1-15.9 L Hematocrit (test code = 4544-3) 32.3 % 34.0-46.6 L MCV (test code = 787-2) 85 fL 79-97 MCH (test code = 785-6) 27.6 pg 26.6-33.0 MCHC (test code = 786-4) 32.5 g/dL 31.5-35.7 RDW (test code = 788-0) 14.8 % 11.7-15.4 Platelets (test code = 777-3) 379 x10E3/uL 150-450 Neutrophils (test code = 770-8) 53 % Not Estab. Lymphs (test code = 736-9) 41 % Not Estab. Monocytes (test code = 5905-5) 4 % Not Estab. Eos (test code = 713-8) 1 % Not Estab. Basos (test code = 706-2) 1 % Not Estab. Neutrophils (Absolute) (test 4.1 x10E3/uL 1.4-7.0 code = 751-8) Lymphs (Absolute) (test code = 3.1 x10E3/uL 0.7-3.1 731-0) Monocytes(Absolute) (test code 0.3 x10E3/uL 0.1-0.9 = 742-7) Eos (Absolute) (test code = 0.0 x10E3/uL 0.0-0.4 711-2) Baso (Absolute) (test code = 0.0 x10E3/uL 0.0-0.2 704-7) Immature Granulocytes (test 0 % Not Estab. code = 46684-7) Immature Grans (Abs) (test code 0.0 x10E3/uL 0.0-0.1 = 15853-4) NRBC (test code = 35763-0) Hematology Comments: (test code = 16222-4) [facility] Description: CBC With Differential/[id number] 02:14:00 Test Item Value Reference Range Interpretation Comments WBC (test code = 6690-2) 7.6 x10E3/uL 3.4-10.8 RBC (test code = 789-8) 3.81 x10E6/uL 3.77-5.28 Hemoglobin (test code = 718-7) 10.5 g/dL 11.1-15.9 L Hematocrit (test code = 4544-3) 32.3 % 34.0-46.6 L MCV (test code = 787-2) 85 fL 79-97 MCH (test code = 785-6) 27.6 pg 26.6-33.0 MCHC (test code = 786-4) 32.5 g/dL 31.5-35.7 RDW (test code = 788-0) 14.8 % 11.7-15.4 Platelets (test code = 777-3) 379 x10E3/uL 150-450 Neutrophils (test code = 770-8) 53 % Not Estab. Lymphs (test code = 736-9) 41 % Not Estab. Monocytes (test code = 5905-5) 4 % Not Estab. Eos (test code = 713-8) 1 % Not Estab. Basos (test code = 706-2) 1 % Not Estab. Neutrophils (Absolute) (test 4.1 x10E3/uL 1.4-7.0 code = 751-8) Lymphs (Absolute) (test code = 3.1 x10E3/uL 0.7-3.1 731-0) Monocytes(Absolute) (test code 0.3 x10E3/uL 0.1-0.9 = 742-7) Eos (Absolute) (test code = 0.0 x10E3/uL 0.0-0.4 711-2) Baso (Absolute) (test code = 0.0 x10E3/uL 0.0-0.2 704-7) Immature Granulocytes (test 0 % Not Estab. code = 87613-8) Immature Grans (Abs) (test code 0.0 x10E3/uL 0.0-0.1 = 23764-5) NRBC (test code = 98581-4) Hematology Comments: (test code = 27015-7) [facility] Description: CBC With Differential/[id number] 02:14:00 Test Item Value Reference Range Interpretation Comments WBC (test code = 6690-2) 7.6 x10E3/uL 3.4-10.8 RBC (test code = 789-8) 3.81 x10E6/uL 3.77-5.28 Hemoglobin (test code = 718-7) 10.5 g/dL 11.1-15.9 L Hematocrit (test code = 4544-3) 32.3 % 34.0-46.6 L MCV (test code = 787-2) 85 fL 79-97 MCH (test code = 785-6) 27.6 pg 26.6-33.0 MCHC (test code = 786-4) 32.5 g/dL 31.5-35.7 RDW (test code = 788-0) 14.8 % 11.7-15.4 Platelets (test code = 777-3) 379 x10E3/uL 150-450 Neutrophils (test code = 770-8) 53 % Not Estab. Lymphs (test code = 736-9) 41 % Not Estab. Monocytes (test code = 5905-5) 4 % Not Estab. Eos (test code = 713-8) 1 % Not Estab. Basos (test code = 706-2) 1 % Not Estab. Neutrophils (Absolute) (test 4.1 x10E3/uL 1.4-7.0 code = 751-8) Lymphs (Absolute) (test code = 3.1 x10E3/uL 0.7-3.1 731-0) Monocytes(Absolute) (test code 0.3 x10E3/uL 0.1-0.9 = 742-7) Eos (Absolute) (test code = 0.0 x10E3/uL 0.0-0.4 711-2) Baso (Absolute) (test code = 0.0 x10E3/uL 0.0-0.2 704-7) Immature Granulocytes (test 0 % Not Estab. code = 94821-4) Immature Grans (Abs) (test code 0.0 x10E3/uL 0.0-0.1 = 75189-3) NRBC (test code = 31250-9) Hematology Comments: (test code = 60255-5) [facility] Description: CBC With Differential/[id number] 02:14:00 Test Item Value Reference Range Interpretation Comments WBC (test code = 6690-2) 7.6 x10E3/uL 3.4-10.8 RBC (test code = 789-8) 3.81 x10E6/uL 3.77-5.28 Hemoglobin (test code = 718-7) 10.5 g/dL 11.1-15.9 L Hematocrit (test code = 4544-3) 32.3 % 34.0-46.6 L MCV (test code = 787-2) 85 fL 79-97 MCH (test code = 785-6) 27.6 pg 26.6-33.0 MCHC (test code = 786-4) 32.5 g/dL 31.5-35.7 RDW (test code = 788-0) 14.8 % 11.7-15.4 Platelets (test code = 777-3) 379 x10E3/uL 150-450 Neutrophils (test code = 770-8) 53 % Not Estab. Lymphs (test code = 736-9) 41 % Not Estab. Monocytes (test code = 5905-5) 4 % Not Estab. Eos (test code = 713-8) 1 % Not Estab. Basos (test code = 706-2) 1 % Not Estab. Neutrophils (Absolute) (test 4.1 x10E3/uL 1.4-7.0 code = 751-8) Lymphs (Absolute) (test code = 3.1 x10E3/uL 0.7-3.1 731-0) Monocytes(Absolute) (test code 0.3 x10E3/uL 0.1-0.9 = 742-7) Eos (Absolute) (test code = 0.0 x10E3/uL 0.0-0.4 711-2) Baso (Absolute) (test code = 0.0 x10E3/uL 0.0-0.2 704-7) Immature Granulocytes (test 0 % Not Estab. code = 91708-9) Immature Grans (Abs) (test code 0.0 x10E3/uL 0.0-0.1 = 29715-2) NRBC (test code = 36775-2) Hematology Comments: (test code = 98097-3) [facility] Description: CBC With Differential/Kooifavh8344-12-32 02:14:00 Test Item Value Reference Range Interpretation Comments WBC (test code = 6690-2) 7.6 x10E3/uL 3.4-10.8 RBC (test code = 789-8) 3.81 x10E6/uL 3.77-5.28 Hemoglobin (test code = 718-7) 10.5 g/dL 11.1-15.9 L Hematocrit (test code = 4544-3) 32.3 % 34.0-46.6 L MCV (test code = 787-2) 85 fL 79-97 MCH (test code = 785-6) 27.6 pg 26.6-33.0 MCHC (test code = 786-4) 32.5 g/dL 31.5-35.7 RDW (test code = 788-0) 14.8 % 11.7-15.4 Platelets (test code = 777-3) 379 x10E3/uL 150-450 Neutrophils (test code = 770-8) 53 % Not Estab. Lymphs (test code = 736-9) 41 % Not Estab. Monocytes (test code = 5905-5) 4 % Not Estab. Eos (test code = 713-8) 1 % Not Estab. Basos (test code = 706-2) 1 % Not Estab. Neutrophils (Absolute) (test 4.1 x10E3/uL 1.4-7.0 code = 751-8) Lymphs (Absolute) (test code = 3.1 x10E3/uL 0.7-3.1 731-0) Monocytes(Absolute) (test code 0.3 x10E3/uL 0.1-0.9 = 742-7) Eos (Absolute) (test code = 0.0 x10E3/uL 0.0-0.4 711-2) Baso (Absolute) (test code = 0.0 x10E3/uL 0.0-0.2 704-7) Immature Granulocytes (test 0 % Not Estab. code = 04265-5) Immature Grans (Abs) (test code 0.0 x10E3/uL 0.0-0.1 = 24792-1) NRBC (test code = 76547-7) Hematology Comments: (test code = 17363-9) [facility] Description: CBC With Differential/[id number] 02:14:00 Test Item Value Reference Range Interpretation Comments WBC (test code = 6690-2) 7.6 x10E3/uL 3.4-10.8 RBC (test code = 789-8) 3.81 x10E6/uL 3.77-5.28 Hemoglobin (test code = 718-7) 10.5 g/dL 11.1-15.9 L Hematocrit (test code = 4544-3) 32.3 % 34.0-46.6 L MCV (test code = 787-2) 85 fL 79-97 MCH (test code = 785-6) 27.6 pg 26.6-33.0 MCHC (test code = 786-4) 32.5 g/dL 31.5-35.7 RDW (test code = 788-0) 14.8 % 11.7-15.4 Platelets (test code = 777-3) 379 x10E3/uL 150-450 Neutrophils (test code = 770-8) 53 % Not Estab. Lymphs (test code = 736-9) 41 % Not Estab. Monocytes (test code = 5905-5) 4 % Not Estab. Eos (test code = 713-8) 1 % Not Estab. Basos (test code = 706-2) 1 % Not Estab. Neutrophils (Absolute) (test 4.1 x10E3/uL 1.4-7.0 code = 751-8) Lymphs (Absolute) (test code = 3.1 x10E3/uL 0.7-3.1 731-0) Monocytes(Absolute) (test code 0.3 x10E3/uL 0.1-0.9 = 742-7) Eos (Absolute) (test code = 0.0 x10E3/uL 0.0-0.4 711-2) Baso (Absolute) (test code = 0.0 x10E3/uL 0.0-0.2 704-7) Immature Granulocytes (test 0 % Not Estab. code = 63996-2) Immature Grans (Abs) (test code 0.0 x10E3/uL 0.0-0.1 = 48867-7) NRBC (test code = 34157-4) Hematology Comments: (test code = 33581-8) [facility] Description: CBC With Differential/Njzwrujs5551-03-62 02:14:00 Test Item Value Reference Range Interpretation Comments WBC (test code = 6690-2) 7.6 x10E3/uL 3.4-10.8 RBC (test code = 789-8) 3.81 x10E6/uL 3.77-5.28 Hemoglobin (test code = 718-7) 10.5 g/dL 11.1-15.9 L Hematocrit (test code = 4544-3) 32.3 % 34.0-46.6 L MCV (test code = 787-2) 85 fL 79-97 MCH (test code = 785-6) 27.6 pg 26.6-33.0 MCHC (test code = 786-4) 32.5 g/dL 31.5-35.7 RDW (test code = 788-0) 14.8 % 11.7-15.4 Platelets (test code = 777-3) 379 x10E3/uL 150-450 Neutrophils (test code = 770-8) 53 % Not Estab. Lymphs (test code = 736-9) 41 % Not Estab. Monocytes (test code = 5905-5) 4 % Not Estab. Eos (test code = 713-8) 1 % Not Estab. Basos (test code = 706-2) 1 % Not Estab. Neutrophils (Absolute) (test 4.1 x10E3/uL 1.4-7.0 code = 751-8) Lymphs (Absolute) (test code = 3.1 x10E3/uL 0.7-3.1 731-0) Monocytes(Absolute) (test code 0.3 x10E3/uL 0.1-0.9 = 742-7) Eos (Absolute) (test code = 0.0 x10E3/uL 0.0-0.4 711-2) Baso (Absolute) (test code = 0.0 x10E3/uL 0.0-0.2 704-7) Immature Granulocytes (test 0 % Not Estab. code = 74973-3) Immature Grans (Abs) (test code 0.0 x10E3/uL 0.0-0.1 = 14013-7) NRBC (test code = 03048-1) Hematology Comments: (test code = 10446-1) [facility] Description: CBC With Differential/[id number] 02:14:00 Test Item Value Reference Range Interpretation Comments WBC (test code = 6690-2) 7.6 x10E3/uL 3.4-10.8 RBC (test code = 789-8) 3.81 x10E6/uL 3.77-5.28 Hemoglobin (test code = 718-7) 10.5 g/dL 11.1-15.9 L Hematocrit (test code = 4544-3) 32.3 % 34.0-46.6 L MCV (test code = 787-2) 85 fL 79-97 MCH (test code = 785-6) 27.6 pg 26.6-33.0 MCHC (test code = 786-4) 32.5 g/dL 31.5-35.7 RDW (test code = 788-0) 14.8 % 11.7-15.4 Platelets (test code = 777-3) 379 x10E3/uL 150-450 Neutrophils (test code = 770-8) 53 % Not Estab. Lymphs (test code = 736-9) 41 % Not Estab. Monocytes (test code = 5905-5) 4 % Not Estab. Eos (test code = 713-8) 1 % Not Estab. Basos (test code = 706-2) 1 % Not Estab. Neutrophils (Absolute) (test 4.1 x10E3/uL 1.4-7.0 code = 751-8) Lymphs (Absolute) (test code = 3.1 x10E3/uL 0.7-3.1 731-0) Monocytes(Absolute) (test code 0.3 x10E3/uL 0.1-0.9 = 742-7) Eos (Absolute) (test code = 0.0 x10E3/uL 0.0-0.4 711-2) Baso (Absolute) (test code = 0.0 x10E3/uL 0.0-0.2 704-7) Immature Granulocytes (test 0 % Not Estab. code = 71407-0) Immature Grans (Abs) (test code 0.0 x10E3/uL 0.0-0.1 = 11762-9) NRBC (test code = 34483-6) Hematology Comments: (test code = 68321-8) [facility] Description: CBC With Differential/[id number] 02:14:00 Test Item Value Reference Range Interpretation Comments WBC (test code = 6690-2) 7.6 x10E3/uL 3.4-10.8 RBC (test code = 789-8) 3.81 x10E6/uL 3.77-5.28 Hemoglobin (test code = 718-7) 10.5 g/dL 11.1-15.9 L Hematocrit (test code = 4544-3) 32.3 % 34.0-46.6 L MCV (test code = 787-2) 85 fL 79-97 MCH (test code = 785-6) 27.6 pg 26.6-33.0 MCHC (test code = 786-4) 32.5 g/dL 31.5-35.7 RDW (test code = 788-0) 14.8 % 11.7-15.4 Platelets (test code = 777-3) 379 x10E3/uL 150-450 Neutrophils (test code = 770-8) 53 % Not Estab. Lymphs (test code = 736-9) 41 % Not Estab. Monocytes (test code = 5905-5) 4 % Not Estab. Eos (test code = 713-8) 1 % Not Estab. Basos (test code = 706-2) 1 % Not Estab. Neutrophils (Absolute) (test 4.1 x10E3/uL 1.4-7.0 code = 751-8) Lymphs (Absolute) (test code = 3.1 x10E3/uL 0.7-3.1 731-0) Monocytes(Absolute) (test code 0.3 x10E3/uL 0.1-0.9 = 742-7) Eos (Absolute) (test code = 0.0 x10E3/uL 0.0-0.4 711-2) Baso (Absolute) (test code = 0.0 x10E3/uL 0.0-0.2 704-7) Immature Granulocytes (test 0 % Not Estab. code = 85600-7) Immature Grans (Abs) (test code 0.0 x10E3/uL 0.0-0.1 = 00714-5) NRBC (test code = 14811-2) Hematology Comments: (test code = 55475-7) [facility] Description: CBC With Differential/Rxisjulk0689-02-37 02:14:00 Test Item Value Reference Range Interpretation Comments WBC (test code = 6690-2) 7.6 x10E3/uL 3.4-10.8 RBC (test code = 789-8) 3.81 x10E6/uL 3.77-5.28 Hemoglobin (test code = 718-7) 10.5 g/dL 11.1-15.9 L Hematocrit (test code = 4544-3) 32.3 % 34.0-46.6 L MCV (test code = 787-2) 85 fL 79-97 MCH (test code = 785-6) 27.6 pg 26.6-33.0 MCHC (test code = 786-4) 32.5 g/dL 31.5-35.7 RDW (test code = 788-0) 14.8 % 11.7-15.4 Platelets (test code = 777-3) 379 x10E3/uL 150-450 Neutrophils (test code = 770-8) 53 % Not Estab. Lymphs (test code = 736-9) 41 % Not Estab. Monocytes (test code = 5905-5) 4 % Not Estab. Eos (test code = 713-8) 1 % Not Estab. Basos (test code = 706-2) 1 % Not Estab. Neutrophils (Absolute) (test 4.1 x10E3/uL 1.4-7.0 code = 751-8) Lymphs (Absolute) (test code = 3.1 x10E3/uL 0.7-3.1 731-0) Monocytes(Absolute) (test code 0.3 x10E3/uL 0.1-0.9 = 742-7) Eos (Absolute) (test code = 0.0 x10E3/uL 0.0-0.4 711-2) Baso (Absolute) (test code = 0.0 x10E3/uL 0.0-0.2 704-7) Immature Granulocytes (test 0 % Not Estab. code = 55108-0) Immature Grans (Abs) (test code 0.0 x10E3/uL 0.0-0.1 = 35104-0) NRBC (test code = 65588-1) Hematology Comments: (test code = 01516-8) [facility] Description: CBC With Differential/Izcydppt7066-95-81 02:14:00 Test Item Value Reference Range Interpretation Comments WBC (test code = 6690-2) 7.6 x10E3/uL 3.4-10.8 RBC (test code = 789-8) 3.81 x10E6/uL 3.77-5.28 Hemoglobin (test code = 718-7) 10.5 g/dL 11.1-15.9 L Hematocrit (test code = 4544-3) 32.3 % 34.0-46.6 L MCV (test code = 787-2) 85 fL 79-97 MCH (test code = 785-6) 27.6 pg 26.6-33.0 MCHC (test code = 786-4) 32.5 g/dL 31.5-35.7 RDW (test code = 788-0) 14.8 % 11.7-15.4 Platelets (test code = 777-3) 379 x10E3/uL 150-450 Neutrophils (test code = 770-8) 53 % Not Estab. Lymphs (test code = 736-9) 41 % Not Estab. Monocytes (test code = 5905-5) 4 % Not Estab. Eos (test code = 713-8) 1 % Not Estab. Basos (test code = 706-2) 1 % Not Estab. Neutrophils (Absolute) (test 4.1 x10E3/uL 1.4-7.0 code = 751-8) Lymphs (Absolute) (test code = 3.1 x10E3/uL 0.7-3.1 731-0) Monocytes(Absolute) (test code 0.3 x10E3/uL 0.1-0.9 = 742-7) Eos (Absolute) (test code = 0.0 x10E3/uL 0.0-0.4 711-2) Baso (Absolute) (test code = 0.0 x10E3/uL 0.0-0.2 704-7) Immature Granulocytes (test 0 % Not Estab. code = 14519-3) Immature Grans (Abs) (test code 0.0 x10E3/uL 0.0-0.1 = 09532-7) NRBC (test code = 33971-2) Hematology Comments: (test code = 19398-0) [facility] Description: CBC With Differential/Qgpkquju5765-25-72 02:14:00 Test Item Value Reference Range Interpretation Comments WBC (test code = 6690-2) 7.6 x10E3/uL 3.4-10.8 RBC (test code = 789-8) 3.81 x10E6/uL 3.77-5.28 Hemoglobin (test code = 718-7) 10.5 g/dL 11.1-15.9 L Hematocrit (test code = 4544-3) 32.3 % 34.0-46.6 L MCV (test code = 787-2) 85 fL 79-97 MCH (test code = 785-6) 27.6 pg 26.6-33.0 MCHC (test code = 786-4) 32.5 g/dL 31.5-35.7 RDW (test code = 788-0) 14.8 % 11.7-15.4 Platelets (test code = 777-3) 379 x10E3/uL 150-450 Neutrophils (test code = 770-8) 53 % Not Estab. Lymphs (test code = 736-9) 41 % Not Estab. Monocytes (test code = 5905-5) 4 % Not Estab. Eos (test code = 713-8) 1 % Not Estab. Basos (test code = 706-2) 1 % Not Estab. Neutrophils (Absolute) (test 4.1 x10E3/uL 1.4-7.0 code = 751-8) Lymphs (Absolute) (test code = 3.1 x10E3/uL 0.7-3.1 731-0) Monocytes(Absolute) (test code 0.3 x10E3/uL 0.1-0.9 = 742-7) Eos (Absolute) (test code = 0.0 x10E3/uL 0.0-0.4 711-2) Baso (Absolute) (test code = 0.0 x10E3/uL 0.0-0.2 704-7) Immature Granulocytes (test 0 % Not Estab. code = 67141-4) Immature Grans (Abs) (test code 0.0 x10E3/uL 0.0-0.1 = 32169-7) NRBC (test code = 97686-7) Hematology Comments: (test code = 05850-2) [facility] Description: CBC With Differential/[id number] 02:14:00 Test Item Value Reference Range Interpretation Comments WBC (test code = 6690-2) 7.6 x10E3/uL 3.4-10.8 RBC (test code = 789-8) 3.81 x10E6/uL 3.77-5.28 Hemoglobin (test code = 718-7) 10.5 g/dL 11.1-15.9 L Hematocrit (test code = 4544-3) 32.3 % 34.0-46.6 L MCV (test code = 787-2) 85 fL 79-97 MCH (test code = 785-6) 27.6 pg 26.6-33.0 MCHC (test code = 786-4) 32.5 g/dL 31.5-35.7 RDW (test code = 788-0) 14.8 % 11.7-15.4 Platelets (test code = 777-3) 379 x10E3/uL 150-450 Neutrophils (test code = 770-8) 53 % Not Estab. Lymphs (test code = 736-9) 41 % Not Estab. Monocytes (test code = 5905-5) 4 % Not Estab. Eos (test code = 713-8) 1 % Not Estab. Basos (test code = 706-2) 1 % Not Estab. Neutrophils (Absolute) (test 4.1 x10E3/uL 1.4-7.0 code = 751-8) Lymphs (Absolute) (test code = 3.1 x10E3/uL 0.7-3.1 731-0) Monocytes(Absolute) (test code 0.3 x10E3/uL 0.1-0.9 = 742-7) Eos (Absolute) (test code = 0.0 x10E3/uL 0.0-0.4 711-2) Baso (Absolute) (test code = 0.0 x10E3/uL 0.0-0.2 704-7) Immature Granulocytes (test 0 % Not Estab. code = 27272-1) Immature Grans (Abs) (test code 0.0 x10E3/uL 0.0-0.1 = 10700-4) NRBC (test code = 35922-6) Hematology Comments: (test code = 37580-6) [facility] Description: CBC With Differential/Ymoahgul7126-07-08 02:14:00 Test Item Value Reference Range Interpretation Comments WBC (test code = 6690-2) 7.6 x10E3/uL 3.4-10.8 RBC (test code = 789-8) 3.81 x10E6/uL 3.77-5.28 Hemoglobin (test code = 718-7) 10.5 g/dL 11.1-15.9 L Hematocrit (test code = 4544-3) 32.3 % 34.0-46.6 L MCV (test code = 787-2) 85 fL 79-97 MCH (test code = 785-6) 27.6 pg 26.6-33.0 MCHC (test code = 786-4) 32.5 g/dL 31.5-35.7 RDW (test code = 788-0) 14.8 % 11.7-15.4 Platelets (test code = 777-3) 379 x10E3/uL 150-450 Neutrophils (test code = 770-8) 53 % Not Estab. Lymphs (test code = 736-9) 41 % Not Estab. Monocytes (test code = 5905-5) 4 % Not Estab. Eos (test code = 713-8) 1 % Not Estab. Basos (test code = 706-2) 1 % Not Estab. Neutrophils (Absolute) (test 4.1 x10E3/uL 1.4-7.0 code = 751-8) Lymphs (Absolute) (test code = 3.1 x10E3/uL 0.7-3.1 731-0) Monocytes(Absolute) (test code 0.3 x10E3/uL 0.1-0.9 = 742-7) Eos (Absolute) (test code = 0.0 x10E3/uL 0.0-0.4 711-2) Baso (Absolute) (test code = 0.0 x10E3/uL 0.0-0.2 704-7) Immature Granulocytes (test 0 % Not Estab. code = 52583-0) Immature Grans (Abs) (test code 0.0 x10E3/uL 0.0-0.1 = 77352-8) NRBC (test code = 24767-3) Hematology Comments: (test code = 65368-6) [facility] Description: CBC With Differential/[id number] 02:14:00 Test Item Value Reference Range Interpretation Comments WBC (test code = 6690-2) 7.6 x10E3/uL 3.4-10.8 RBC (test code = 789-8) 3.81 x10E6/uL 3.77-5.28 Hemoglobin (test code = 718-7) 10.5 g/dL 11.1-15.9 L Hematocrit (test code = 4544-3) 32.3 % 34.0-46.6 L MCV (test code = 787-2) 85 fL 79-97 MCH (test code = 785-6) 27.6 pg 26.6-33.0 MCHC (test code = 786-4) 32.5 g/dL 31.5-35.7 RDW (test code = 788-0) 14.8 % 11.7-15.4 Platelets (test code = 777-3) 379 x10E3/uL 150-450 Neutrophils (test code = 770-8) 53 % Not Estab. Lymphs (test code = 736-9) 41 % Not Estab. Monocytes (test code = 5905-5) 4 % Not Estab. Eos (test code = 713-8) 1 % Not Estab. Basos (test code = 706-2) 1 % Not Estab. Neutrophils (Absolute) (test 4.1 x10E3/uL 1.4-7.0 code = 751-8) Lymphs (Absolute) (test code = 3.1 x10E3/uL 0.7-3.1 731-0) Monocytes(Absolute) (test code 0.3 x10E3/uL 0.1-0.9 = 742-7) Eos (Absolute) (test code = 0.0 x10E3/uL 0.0-0.4 711-2) Baso (Absolute) (test code = 0.0 x10E3/uL 0.0-0.2 704-7) Immature Granulocytes (test 0 % Not Estab. code = 24570-8) Immature Grans (Abs) (test code 0.0 x10E3/uL 0.0-0.1 = 80316-2) NRBC (test code = 40027-9) Hematology Comments: (test code = 68761-5) [facility] Description: CBC With Differential/[id number] 02:14:00 Test Item Value Reference Range Interpretation Comments WBC (test code = 6690-2) 7.6 x10E3/uL 3.4-10.8 RBC (test code = 789-8) 3.81 x10E6/uL 3.77-5.28 Hemoglobin (test code = 718-7) 10.5 g/dL 11.1-15.9 L Hematocrit (test code = 4544-3) 32.3 % 34.0-46.6 L MCV (test code = 787-2) 85 fL 79-97 MCH (test code = 785-6) 27.6 pg 26.6-33.0 MCHC (test code = 786-4) 32.5 g/dL 31.5-35.7 RDW (test code = 788-0) 14.8 % 11.7-15.4 Platelets (test code = 777-3) 379 x10E3/uL 150-450 Neutrophils (test code = 770-8) 53 % Not Estab. Lymphs (test code = 736-9) 41 % Not Estab. Monocytes (test code = 5905-5) 4 % Not Estab. Eos (test code = 713-8) 1 % Not Estab. Basos (test code = 706-2) 1 % Not Estab. Neutrophils (Absolute) (test 4.1 x10E3/uL 1.4-7.0 code = 751-8) Lymphs (Absolute) (test code = 3.1 x10E3/uL 0.7-3.1 731-0) Monocytes(Absolute) (test code 0.3 x10E3/uL 0.1-0.9 = 742-7) Eos (Absolute) (test code = 0.0 x10E3/uL 0.0-0.4 711-2) Baso (Absolute) (test code = 0.0 x10E3/uL 0.0-0.2 704-7) Immature Granulocytes (test 0 % Not Estab. code = 98482-0) Immature Grans (Abs) (test code 0.0 x10E3/uL 0.0-0.1 = 62623-4) NRBC (test code = 68755-6) Hematology Comments: (test code = 40870-5) [facility] Description: CBC With Differential/[id number] 02:14:00 Test Item Value Reference Range Interpretation Comments WBC (test code = 6690-2) 7.6 x10E3/uL 3.4-10.8 RBC (test code = 789-8) 3.81 x10E6/uL 3.77-5.28 Hemoglobin (test code = 718-7) 10.5 g/dL 11.1-15.9 L Hematocrit (test code = 4544-3) 32.3 % 34.0-46.6 L MCV (test code = 787-2) 85 fL 79-97 MCH (test code = 785-6) 27.6 pg 26.6-33.0 MCHC (test code = 786-4) 32.5 g/dL 31.5-35.7 RDW (test code = 788-0) 14.8 % 11.7-15.4 Platelets (test code = 777-3) 379 x10E3/uL 150-450 Neutrophils (test code = 770-8) 53 % Not Estab. Lymphs (test code = 736-9) 41 % Not Estab. Monocytes (test code = 5905-5) 4 % Not Estab. Eos (test code = 713-8) 1 % Not Estab. Basos (test code = 706-2) 1 % Not Estab. Neutrophils (Absolute) (test 4.1 x10E3/uL 1.4-7.0 code = 751-8) Lymphs (Absolute) (test code = 3.1 x10E3/uL 0.7-3.1 731-0) Monocytes(Absolute) (test code 0.3 x10E3/uL 0.1-0.9 = 742-7) Eos (Absolute) (test code = 0.0 x10E3/uL 0.0-0.4 711-2) Baso (Absolute) (test code = 0.0 x10E3/uL 0.0-0.2 704-7) Immature Granulocytes (test 0 % Not Estab. code = 39928-0) Immature Grans (Abs) (test code 0.0 x10E3/uL 0.0-0.1 = 19101-6) NRBC (test code = 16044-9) Hematology Comments: (test code = 04332-4) [facility] Description: CBC With Differential/[id number] 02:14:00 Test Item Value Reference Range Interpretation Comments WBC (test code = 6690-2) 7.6 x10E3/uL 3.4-10.8 RBC (test code = 789-8) 3.81 x10E6/uL 3.77-5.28 Hemoglobin (test code = 718-7) 10.5 g/dL 11.1-15.9 L Hematocrit (test code = 4544-3) 32.3 % 34.0-46.6 L MCV (test code = 787-2) 85 fL 79-97 MCH (test code = 785-6) 27.6 pg 26.6-33.0 MCHC (test code = 786-4) 32.5 g/dL 31.5-35.7 RDW (test code = 788-0) 14.8 % 11.7-15.4 Platelets (test code = 777-3) 379 x10E3/uL 150-450 Neutrophils (test code = 770-8) 53 % Not Estab. Lymphs (test code = 736-9) 41 % Not Estab. Monocytes (test code = 5905-5) 4 % Not Estab. Eos (test code = 713-8) 1 % Not Estab. Basos (test code = 706-2) 1 % Not Estab. Neutrophils (Absolute) (test 4.1 x10E3/uL 1.4-7.0 code = 751-8) Lymphs (Absolute) (test code = 3.1 x10E3/uL 0.7-3.1 731-0) Monocytes(Absolute) (test code 0.3 x10E3/uL 0.1-0.9 = 742-7) Eos (Absolute) (test code = 0.0 x10E3/uL 0.0-0.4 711-2) Baso (Absolute) (test code = 0.0 x10E3/uL 0.0-0.2 704-7) Immature Granulocytes (test 0 % Not Estab. code = 72956-1) Immature Grans (Abs) (test code 0.0 x10E3/uL 0.0-0.1 = 74495-0) NRBC (test code = 64380-1) Hematology Comments: (test code = 31645-6) [facility] Description: CBC With Differential/[id number] 02:14:00 Test Item Value Reference Range Interpretation Comments WBC (test code = 6690-2) 7.6 x10E3/uL 3.4-10.8 RBC (test code = 789-8) 3.81 x10E6/uL 3.77-5.28 Hemoglobin (test code = 718-7) 10.5 g/dL 11.1-15.9 L Hematocrit (test code = 4544-3) 32.3 % 34.0-46.6 L MCV (test code = 787-2) 85 fL 79-97 MCH (test code = 785-6) 27.6 pg 26.6-33.0 MCHC (test code = 786-4) 32.5 g/dL 31.5-35.7 RDW (test code = 788-0) 14.8 % 11.7-15.4 Platelets (test code = 777-3) 379 x10E3/uL 150-450 Neutrophils (test code = 770-8) 53 % Not Estab. Lymphs (test code = 736-9) 41 % Not Estab. Monocytes (test code = 5905-5) 4 % Not Estab. Eos (test code = 713-8) 1 % Not Estab. Basos (test code = 706-2) 1 % Not Estab. Neutrophils (Absolute) (test 4.1 x10E3/uL 1.4-7.0 code = 751-8) Lymphs (Absolute) (test code = 3.1 x10E3/uL 0.7-3.1 731-0) Monocytes(Absolute) (test code 0.3 x10E3/uL 0.1-0.9 = 742-7) Eos (Absolute) (test code = 0.0 x10E3/uL 0.0-0.4 711-2) Baso (Absolute) (test code = 0.0 x10E3/uL 0.0-0.2 704-7) Immature Granulocytes (test 0 % Not Estab. code = 08734-2) Immature Grans (Abs) (test code 0.0 x10E3/uL 0.0-0.1 = 31618-3) NRBC (test code = 70871-4) Hematology Comments: (test code = 61896-6) [facility] Description: CBC With Differential/Uvkvdyhf8498-15-61 02:14:00 Test Item Value Reference Range Interpretation Comments WBC (test code = 6690-2) 7.6 x10E3/uL 3.4-10.8 RBC (test code = 789-8) 3.81 x10E6/uL 3.77-5.28 Hemoglobin (test code = 718-7) 10.5 g/dL 11.1-15.9 L Hematocrit (test code = 4544-3) 32.3 % 34.0-46.6 L MCV (test code = 787-2) 85 fL 79-97 MCH (test code = 785-6) 27.6 pg 26.6-33.0 MCHC (test code = 786-4) 32.5 g/dL 31.5-35.7 RDW (test code = 788-0) 14.8 % 11.7-15.4 Platelets (test code = 777-3) 379 x10E3/uL 150-450 Neutrophils (test code = 770-8) 53 % Not Estab. Lymphs (test code = 736-9) 41 % Not Estab. Monocytes (test code = 5905-5) 4 % Not Estab. Eos (test code = 713-8) 1 % Not Estab. Basos (test code = 706-2) 1 % Not Estab. Neutrophils (Absolute) (test 4.1 x10E3/uL 1.4-7.0 code = 751-8) Lymphs (Absolute) (test code = 3.1 x10E3/uL 0.7-3.1 731-0) Monocytes(Absolute) (test code 0.3 x10E3/uL 0.1-0.9 = 742-7) Eos (Absolute) (test code = 0.0 x10E3/uL 0.0-0.4 711-2) Baso (Absolute) (test code = 0.0 x10E3/uL 0.0-0.2 704-7) Immature Granulocytes (test 0 % Not Estab. code = 12010-3) Immature Grans (Abs) (test code 0.0 x10E3/uL 0.0-0.1 = 55500-6) NRBC (test code = 74667-4) Hematology Comments: (test code = 76739-4) [facility] Description: CBC With Differential/Miejvkww0845-29-08 02:14:00 Test Item Value Reference Range Interpretation Comments WBC (test code = 6690-2) 7.6 x10E3/uL 3.4-10.8 RBC (test code = 789-8) 3.81 x10E6/uL 3.77-5.28 Hemoglobin (test code = 718-7) 10.5 g/dL 11.1-15.9 L Hematocrit (test code = 4544-3) 32.3 % 34.0-46.6 L MCV (test code = 787-2) 85 fL 79-97 MCH (test code = 785-6) 27.6 pg 26.6-33.0 MCHC (test code = 786-4) 32.5 g/dL 31.5-35.7 RDW (test code = 788-0) 14.8 % 11.7-15.4 Platelets (test code = 777-3) 379 x10E3/uL 150-450 Neutrophils (test code = 770-8) 53 % Not Estab. Lymphs (test code = 736-9) 41 % Not Estab. Monocytes (test code = 5905-5) 4 % Not Estab. Eos (test code = 713-8) 1 % Not Estab. Basos (test code = 706-2) 1 % Not Estab. Neutrophils (Absolute) (test 4.1 x10E3/uL 1.4-7.0 code = 751-8) Lymphs (Absolute) (test code = 3.1 x10E3/uL 0.7-3.1 731-0) Monocytes(Absolute) (test code 0.3 x10E3/uL 0.1-0.9 = 742-7) Eos (Absolute) (test code = 0.0 x10E3/uL 0.0-0.4 711-2) Baso (Absolute) (test code = 0.0 x10E3/uL 0.0-0.2 704-7) Immature Granulocytes (test 0 % Not Estab. code = 10420-1) Immature Grans (Abs) (test code 0.0 x10E3/uL 0.0-0.1 = 72568-6) NRBC (test code = 40166-6) Hematology Comments: (test code = 93039-2) [facility] Description: CBC With Differential/Dtvonxud9744-24-45 02:14:00 Test Item Value Reference Range Interpretation Comments WBC (test code = 6690-2) 7.6 x10E3/uL 3.4-10.8 RBC (test code = 789-8) 3.81 x10E6/uL 3.77-5.28 Hemoglobin (test code = 718-7) 10.5 g/dL 11.1-15.9 L Hematocrit (test code = 4544-3) 32.3 % 34.0-46.6 L MCV (test code = 787-2) 85 fL 79-97 MCH (test code = 785-6) 27.6 pg 26.6-33.0 MCHC (test code = 786-4) 32.5 g/dL 31.5-35.7 RDW (test code = 788-0) 14.8 % 11.7-15.4 Platelets (test code = 777-3) 379 x10E3/uL 150-450 Neutrophils (test code = 770-8) 53 % Not Estab. Lymphs (test code = 736-9) 41 % Not Estab. Monocytes (test code = 5905-5) 4 % Not Estab. Eos (test code = 713-8) 1 % Not Estab. Basos (test code = 706-2) 1 % Not Estab. Neutrophils (Absolute) (test 4.1 x10E3/uL 1.4-7.0 code = 751-8) Lymphs (Absolute) (test code = 3.1 x10E3/uL 0.7-3.1 731-0) Monocytes(Absolute) (test code 0.3 x10E3/uL 0.1-0.9 = 742-7) Eos (Absolute) (test code = 0.0 x10E3/uL 0.0-0.4 711-2) Baso (Absolute) (test code = 0.0 x10E3/uL 0.0-0.2 704-7) Immature Granulocytes (test 0 % Not Estab. code = 93885-0) Immature Grans (Abs) (test code 0.0 x10E3/uL 0.0-0.1 = 60782-4) NRBC (test code = 17438-5) Hematology Comments: (test code = 17620-7) [facility] Description: CBC With Differential/Xzegqpnt7575-72-79 02:14:00 Test Item Value Reference Range Interpretation Comments WBC (test code = 6690-2) 7.6 x10E3/uL 3.4-10.8 RBC (test code = 789-8) 3.81 x10E6/uL 3.77-5.28 Hemoglobin (test code = 718-7) 10.5 g/dL 11.1-15.9 L Hematocrit (test code = 4544-3) 32.3 % 34.0-46.6 L MCV (test code = 787-2) 85 fL 79-97 MCH (test code = 785-6) 27.6 pg 26.6-33.0 MCHC (test code = 786-4) 32.5 g/dL 31.5-35.7 RDW (test code = 788-0) 14.8 % 11.7-15.4 Platelets (test code = 777-3) 379 x10E3/uL 150-450 Neutrophils (test code = 770-8) 53 % Not Estab. Lymphs (test code = 736-9) 41 % Not Estab. Monocytes (test code = 5905-5) 4 % Not Estab. Eos (test code = 713-8) 1 % Not Estab. Basos (test code = 706-2) 1 % Not Estab. Neutrophils (Absolute) (test 4.1 x10E3/uL 1.4-7.0 code = 751-8) Lymphs (Absolute) (test code = 3.1 x10E3/uL 0.7-3.1 731-0) Monocytes(Absolute) (test code 0.3 x10E3/uL 0.1-0.9 = 742-7) Eos (Absolute) (test code = 0.0 x10E3/uL 0.0-0.4 711-2) Baso (Absolute) (test code = 0.0 x10E3/uL 0.0-0.2 704-7) Immature Granulocytes (test 0 % Not Estab. code = 71339-3) Immature Grans (Abs) (test code 0.0 x10E3/uL 0.0-0.1 = 23959-1) NRBC (test code = 93424-5) Hematology Comments: (test code = 62923-1) [facility] Description: CBC With Differential/Regqqzdo5793-50-85 02:14:00 Test Item Value Reference Range Interpretation Comments WBC (test code = 6690-2) 7.6 x10E3/uL 3.4-10.8 RBC (test code = 789-8) 3.81 x10E6/uL 3.77-5.28 Hemoglobin (test code = 718-7) 10.5 g/dL 11.1-15.9 L Hematocrit (test code = 4544-3) 32.3 % 34.0-46.6 L MCV (test code = 787-2) 85 fL 79-97 MCH (test code = 785-6) 27.6 pg 26.6-33.0 MCHC (test code = 786-4) 32.5 g/dL 31.5-35.7 RDW (test code = 788-0) 14.8 % 11.7-15.4 Platelets (test code = 777-3) 379 x10E3/uL 150-450 Neutrophils (test code = 770-8) 53 % Not Estab. Lymphs (test code = 736-9) 41 % Not Estab. Monocytes (test code = 5905-5) 4 % Not Estab. Eos (test code = 713-8) 1 % Not Estab. Basos (test code = 706-2) 1 % Not Estab. Neutrophils (Absolute) (test 4.1 x10E3/uL 1.4-7.0 code = 751-8) Lymphs (Absolute) (test code = 3.1 x10E3/uL 0.7-3.1 731-0) Monocytes(Absolute) (test code 0.3 x10E3/uL 0.1-0.9 = 742-7) Eos (Absolute) (test code = 0.0 x10E3/uL 0.0-0.4 711-2) Baso (Absolute) (test code = 0.0 x10E3/uL 0.0-0.2 704-7) Immature Granulocytes (test 0 % Not Estab. code = 49395-5) Immature Grans (Abs) (test code 0.0 x10E3/uL 0.0-0.1 = 51193-8) NRBC (test code = 44545-3) Hematology Comments: (test code = 95843-4) [facility] Description: CBC With Differential/Xrpoygby0620-95-32 02:14:00 Test Item Value Reference Range Interpretation Comments WBC (test code = 6690-2) 7.6 x10E3/uL 3.4-10.8 RBC (test code = 789-8) 3.81 x10E6/uL 3.77-5.28 Hemoglobin (test code = 718-7) 10.5 g/dL 11.1-15.9 L Hematocrit (test code = 4544-3) 32.3 % 34.0-46.6 L MCV (test code = 787-2) 85 fL 79-97 MCH (test code = 785-6) 27.6 pg 26.6-33.0 MCHC (test code = 786-4) 32.5 g/dL 31.5-35.7 RDW (test code = 788-0) 14.8 % 11.7-15.4 Platelets (test code = 777-3) 379 x10E3/uL 150-450 Neutrophils (test code = 770-8) 53 % Not Estab. Lymphs (test code = 736-9) 41 % Not Estab. Monocytes (test code = 5905-5) 4 % Not Estab. Eos (test code = 713-8) 1 % Not Estab. Basos (test code = 706-2) 1 % Not Estab. Neutrophils (Absolute) (test 4.1 x10E3/uL 1.4-7.0 code = 751-8) Lymphs (Absolute) (test code = 3.1 x10E3/uL 0.7-3.1 731-0) Monocytes(Absolute) (test code 0.3 x10E3/uL 0.1-0.9 = 742-7) Eos (Absolute) (test code = 0.0 x10E3/uL 0.0-0.4 711-2) Baso (Absolute) (test code = 0.0 x10E3/uL 0.0-0.2 704-7) Immature Granulocytes (test 0 % Not Estab. code = 39202-7) Immature Grans (Abs) (test code 0.0 x10E3/uL 0.0-0.1 = 58337-1) NRBC (test code = 77825-3) Hematology Comments: (test code = 99565-8) [facility] Description: CBC With Differential/[id number] 02:14:00 Test Item Value Reference Range Interpretation Comments WBC (test code = 6690-2) 7.6 x10E3/uL 3.4-10.8 RBC (test code = 789-8) 3.81 x10E6/uL 3.77-5.28 Hemoglobin (test code = 718-7) 10.5 g/dL 11.1-15.9 L Hematocrit (test code = 4544-3) 32.3 % 34.0-46.6 L MCV (test code = 787-2) 85 fL 79-97 MCH (test code = 785-6) 27.6 pg 26.6-33.0 MCHC (test code = 786-4) 32.5 g/dL 31.5-35.7 RDW (test code = 788-0) 14.8 % 11.7-15.4 Platelets (test code = 777-3) 379 x10E3/uL 150-450 Neutrophils (test code = 770-8) 53 % Not Estab. Lymphs (test code = 736-9) 41 % Not Estab. Monocytes (test code = 5905-5) 4 % Not Estab. Eos (test code = 713-8) 1 % Not Estab. Basos (test code = 706-2) 1 % Not Estab. Neutrophils (Absolute) (test 4.1 x10E3/uL 1.4-7.0 code = 751-8) Lymphs (Absolute) (test code = 3.1 x10E3/uL 0.7-3.1 731-0) Monocytes(Absolute) (test code 0.3 x10E3/uL 0.1-0.9 = 742-7) Eos (Absolute) (test code = 0.0 x10E3/uL 0.0-0.4 711-2) Baso (Absolute) (test code = 0.0 x10E3/uL 0.0-0.2 704-7) Immature Granulocytes (test 0 % Not Estab. code = 72775-6) Immature Grans (Abs) (test code 0.0 x10E3/uL 0.0-0.1 = 05698-5) NRBC (test code = 98597-2) Hematology Comments: (test code = 75920-9) [facility] Description: CBC With Differential/Kuwsemvm7347-48-77 02:14:00 Test Item Value Reference Range Interpretation Comments WBC (test code = 6690-2) 7.6 x10E3/uL 3.4-10.8 RBC (test code = 789-8) 3.81 x10E6/uL 3.77-5.28 Hemoglobin (test code = 718-7) 10.5 g/dL 11.1-15.9 L Hematocrit (test code = 4544-3) 32.3 % 34.0-46.6 L MCV (test code = 787-2) 85 fL 79-97 MCH (test code = 785-6) 27.6 pg 26.6-33.0 MCHC (test code = 786-4) 32.5 g/dL 31.5-35.7 RDW (test code = 788-0) 14.8 % 11.7-15.4 Platelets (test code = 777-3) 379 x10E3/uL 150-450 Neutrophils (test code = 770-8) 53 % Not Estab. Lymphs (test code = 736-9) 41 % Not Estab. Monocytes (test code = 5905-5) 4 % Not Estab. Eos (test code = 713-8) 1 % Not Estab. Basos (test code = 706-2) 1 % Not Estab. Neutrophils (Absolute) (test 4.1 x10E3/uL 1.4-7.0 code = 751-8) Lymphs (Absolute) (test code = 3.1 x10E3/uL 0.7-3.1 731-0) Monocytes(Absolute) (test code 0.3 x10E3/uL 0.1-0.9 = 742-7) Eos (Absolute) (test code = 0.0 x10E3/uL 0.0-0.4 711-2) Baso (Absolute) (test code = 0.0 x10E3/uL 0.0-0.2 704-7) Immature Granulocytes (test 0 % Not Estab. code = 77321-0) Immature Grans (Abs) (test code 0.0 x10E3/uL 0.0-0.1 = 75140-2) NRBC (test code = 98981-5) Hematology Comments: (test code = 42649-2) [facility] Description: CBC With Differential/Hpvwompw5387-02-00 02:14:00 Test Item Value Reference Range Interpretation Comments WBC (test code = 6690-2) 7.6 x10E3/uL 3.4-10.8 RBC (test code = 789-8) 3.81 x10E6/uL 3.77-5.28 Hemoglobin (test code = 718-7) 10.5 g/dL 11.1-15.9 L Hematocrit (test code = 4544-3) 32.3 % 34.0-46.6 L MCV (test code = 787-2) 85 fL 79-97 MCH (test code = 785-6) 27.6 pg 26.6-33.0 MCHC (test code = 786-4) 32.5 g/dL 31.5-35.7 RDW (test code = 788-0) 14.8 % 11.7-15.4 Platelets (test code = 777-3) 379 x10E3/uL 150-450 Neutrophils (test code = 770-8) 53 % Not Estab. Lymphs (test code = 736-9) 41 % Not Estab. Monocytes (test code = 5905-5) 4 % Not Estab. Eos (test code = 713-8) 1 % Not Estab. Basos (test code = 706-2) 1 % Not Estab. Neutrophils (Absolute) (test 4.1 x10E3/uL 1.4-7.0 code = 751-8) Lymphs (Absolute) (test code = 3.1 x10E3/uL 0.7-3.1 731-0) Monocytes(Absolute) (test code 0.3 x10E3/uL 0.1-0.9 = 742-7) Eos (Absolute) (test code = 0.0 x10E3/uL 0.0-0.4 711-2) Baso (Absolute) (test code = 0.0 x10E3/uL 0.0-0.2 704-7) Immature Granulocytes (test 0 % Not Estab. code = 37392-0) Immature Grans (Abs) (test code 0.0 x10E3/uL 0.0-0.1 = 82781-5) NRBC (test code = 85564-5) Hematology Comments: (test code = 75667-1) [facility] Description: Lipid [id number] 01:51:00 Test Item Value Reference Range Interpretation Comments Cholesterol, Total (test code = 178 mg/dL 556-172 3597-3) Triglycerides (test code = 2571-8) 61 mg/dL 0-149 HDL Cholesterol (test code = 69 mg/dL >39 5-9) VLDL Cholesterol [place] (test code = 12 mg/dL 5-40 31493-4) LDL Cholesterol Calc (test code = 97 mg/dL 0-99 76119-3) Comment: (test code = 19638-4) [facility] Description: Lipid [id number] 01:51:00 Test Item Value Reference Range Interpretation Comments Cholesterol, Total (test code = 178 mg/dL 740-040 1082-3) Triglycerides (test code = 2571-8) 61 mg/dL 0-149 HDL Cholesterol (test code = 69 mg/dL >39 2085-9) VLDL Cholesterol [place] (test code = 12 mg/dL 5-40 08806-2) LDL Cholesterol Calc (test code = 97 mg/dL 0-99 68247-7) Comment: (test code = 45043-3) [facility] Description: Lipid [id number] 01:51:00 Test Item Value Reference Range Interpretation Comments Cholesterol, Total (test code = 178 mg/dL 741-551 3145-3) Triglycerides (test code = 2571-8) 61 mg/dL 0-149 HDL Cholesterol (test code = 69 mg/dL >39 2085-9) VLDL Cholesterol [place] (test code = 12 mg/dL 5-40 23956-0) LDL Cholesterol Calc (test code = 97 mg/dL 0-99 59792-4) Comment: (test code = 18889-4) [facility] Description: Lipid [id number] 01:51:00 Test Item Value Reference Range Interpretation Comments Cholesterol, Total (test code = 178 mg/dL 097-254 1267-3) Triglycerides (test code = 2571-8) 61 mg/dL 0-149 HDL Cholesterol (test code = 69 mg/dL >39 2085-9) VLDL Cholesterol [place] (test code = 12 mg/dL 5-40 82482-4) LDL Cholesterol Calc (test code = 97 mg/dL 0-99 31382-7) Comment: (test code = 20977-1) [facility] Description: Lipid [id number] 01:51:00 Test Item Value Reference Range Interpretation Comments Cholesterol, Total (test code = 178 mg/dL 656-492 5342-3) Triglycerides (test code = 2571-8) 61 mg/dL 0-149 HDL Cholesterol (test code = 69 mg/dL >39 2085-9) VLDL Cholesterol [place] (test code = 12 mg/dL 5-40 99300-0) LDL Cholesterol Calc (test code = 97 mg/dL 0-99 48334-7) Comment: (test code = 60987-6) [facility] [employer] Description: Lipid [id number] 01:51:00 Test Item Value Reference Range Interpretation Comments Cholesterol, Total (test code = 178 mg/dL 251-108 9775-3) Triglycerides (test code = 2571-8) 61 mg/dL 0-149 HDL Cholesterol (test code = 69 mg/dL >39 2085-9) VLDL Cholesterol [place] (test code = 12 mg/dL 5-40 77977-9) LDL Cholesterol Calc (test code = 97 mg/dL 0-99 16580-5) Comment: (test code = 57098-9) [facility] Description: Lipid [id number] 01:51:00 Test Item Value Reference Range Interpretation Comments Cholesterol, Total (test code = 178 mg/dL 956-763 6251-3) Triglycerides (test code = 2571-8) 61 mg/dL 0-149 HDL Cholesterol (test code = 69 mg/dL >39 2085-9) VLDL Cholesterol [place] (test code = 12 mg/dL 5-40 51010-8) LDL Cholesterol Calc (test code = 97 mg/dL 0-99 57583-5) Comment: (test code = 17467-1) [facility] Description: Lipid [id number] 01:51:00 Test Item Value Reference Range Interpretation Comments Cholesterol, Total (test code = 178 mg/dL 568-886 8869-3) Triglycerides (test code = 2571-8) 61 mg/dL 0-149 HDL Cholesterol (test code = 69 mg/dL >39 2085-9) VLDL Cholesterol [place] (test code = 12 mg/dL 5-40 35182-7) LDL Cholesterol Calc (test code = 97 mg/dL 0-99 21842-1) Comment: (test code = 81122-5) [facility] Description: Lipid [id number] 01:51:00 Test Item Value Reference Range Interpretation Comments Cholesterol, Total (test code = 178 mg/dL 149-299 6982-3) Triglycerides (test code = 2571-8) 61 mg/dL 0-149 HDL Cholesterol (test code = 69 mg/dL >39 2085-9) VLDL Cholesterol [place] (test code = 12 mg/dL 5-40 23589-1) LDL Cholesterol Calc (test code = 97 mg/dL 0-99 14209-3) Comment: (test code = 07186-1) [facility] Description: Lipid [id number] 01:51:00 Test Item Value Reference Range Interpretation Comments Cholesterol, Total (test code = 178 mg/dL 663-386 6278-3) Triglycerides (test code = 2571-8) 61 mg/dL 0-149 HDL Cholesterol (test code = 69 mg/dL >39 2085-9) VLDL Cholesterol [place] (test code = 12 mg/dL 5-40 39292-5) LDL Cholesterol Calc (test code = 97 mg/dL 0-99 56590-7) Comment: (test code = 76255-0) [facility] Description: Lipid [id number] 01:51:00 Test Item Value Reference Range Interpretation Comments Cholesterol, Total (test code = 178 mg/dL 558-713 4523-3) Triglycerides (test code = 2571-8) 61 mg/dL 0-149 HDL Cholesterol (test code = 69 mg/dL >39 2085-9) VLDL Cholesterol [place] (test code = 12 mg/dL 5-40 06832-2) LDL Cholesterol Calc (test code = 97 mg/dL 0-99 65247-6) Comment: (test code = 76288-0) [facility] Description: Lipid [id number] 01:51:00 Test Item Value Reference Range Interpretation Comments Cholesterol, Total (test code = 178 mg/dL 965-296 1592-3) Triglycerides (test code = 2571-8) 61 mg/dL 0-149 HDL Cholesterol (test code = 69 mg/dL >39 2085-9) VLDL Cholesterol [place] (test code = 12 mg/dL 5-40 88862-9) LDL Cholesterol Calc (test code = 97 mg/dL 0-99 39096-3) Comment: (test code = 93645-8) [facility] Description: Lipid [id number] 01:51:00 Test Item Value Reference Range Interpretation Comments Cholesterol, Total (test code = 178 mg/dL 918-763 7605-3) Triglycerides (test code = 2571-8) 61 mg/dL 0-149 HDL Cholesterol (test code = 69 mg/dL >39 2085-9) VLDL Cholesterol [place] (test code = 12 mg/dL 5-40 46702-1) LDL Cholesterol Calc (test code = 97 mg/dL 0-99 93882-1) Comment: (test code = 13564-9) [facility] Description: Lipid [id number] 01:51:00 Test Item Value Reference Range Interpretation Comments Cholesterol, Total (test code = 178 mg/dL 362-336 9711-3) Triglycerides (test code = 2571-8) 61 mg/dL 0-149 HDL Cholesterol (test code = 69 mg/dL >39 2085-9) VLDL Cholesterol [place] (test code = 12 mg/dL 5-40 23392-8) LDL Cholesterol Calc (test code = 97 mg/dL 0-99 41795-0) Comment: (test code = 62512-6) [facility] Description: Lipid [id number] 01:51:00 Test Item Value Reference Range Interpretation Comments Cholesterol, Total (test code = 178 mg/dL 852-864 1573-3) Triglycerides (test code = 2571-8) 61 mg/dL 0-149 HDL Cholesterol (test code = 69 mg/dL >39 5-9) VLDL Cholesterol [place] (test code = 12 mg/dL 5-40 45186-5) LDL Cholesterol Calc (test code = 97 mg/dL 0-99 19549-8) Comment: (test code = 79556-0) [facility] Description: Lipid [id number] 01:51:00 Test Item Value Reference Range Interpretation Comments Cholesterol, Total (test code = 178 mg/dL 562-139 5554-3) Triglycerides (test code = 2571-8) 61 mg/dL 0-149 HDL Cholesterol (test code = 69 mg/dL >39 5-9) VLDL Cholesterol [place] (test code = 12 mg/dL 5-40 31158-3) LDL Cholesterol Calc (test code = 97 mg/dL 0-99 10187-3) Comment: (test code = 80522-6) [facility] Description: Lipid [id number] 01:51:00 Test Item Value Reference Range Interpretation Comments Cholesterol, Total (test code = 178 mg/dL 608-933 0671-3) Triglycerides (test code = 2571-8) 61 mg/dL 0-149 HDL Cholesterol (test code = 69 mg/dL >39 2085-9) VLDL Cholesterol [place] (test code = 12 mg/dL 5-40 85415-8) LDL Cholesterol Calc (test code = 97 mg/dL 0-99 29931-5) Comment: (test code = 77300-9) [facility] Description: Lipid [id number] 01:51:00 Test Item Value Reference Range Interpretation Comments Cholesterol, Total (test code = 178 mg/dL 788-700 8072-3) Triglycerides (test code = 2571-8) 61 mg/dL 0-149 HDL Cholesterol (test code = 69 mg/dL >39 2085-9) VLDL Cholesterol [place] (test code = 12 mg/dL 5-40 87587-6) LDL Cholesterol Calc (test code = 97 mg/dL 0-99 80198-4) Comment: (test code = 90273-2) [facility] Description: Lipid [id number] 01:51:00 Test Item Value Reference Range Interpretation Comments Cholesterol, Total (test code = 178 mg/dL 113-017 8601-3) Triglycerides (test code = 2571-8) 61 mg/dL 0-149 HDL Cholesterol (test code = 69 mg/dL >39 2085-9) VLDL Cholesterol [place] (test code = 12 mg/dL 5-40 44831-0) LDL Cholesterol Calc (test code = 97 mg/dL 0-99 74033-8) Comment: (test code = 18621-4) [facility] Description: Lipid [id number] 01:51:00 Test Item Value Reference Range Interpretation Comments Cholesterol, Total (test code = 178 mg/dL 722-236 2134-3) Triglycerides (test code = 2571-8) 61 mg/dL 0-149 HDL Cholesterol (test code = 69 mg/dL >39 2085-9) VLDL Cholesterol [place] (test code = 12 mg/dL 5-40 33622-8) LDL Cholesterol Calc (test code = 97 mg/dL 0-99 99082-8) Comment: (test code = 90264-3) [facility] Description: Lipid [id number] 01:51:00 Test Item Value Reference Range Interpretation Comments Cholesterol, Total (test code = 178 mg/dL 725-771 1964-3) Triglycerides (test code = 2571-8) 61 mg/dL 0-149 HDL Cholesterol (test code = 69 mg/dL >39 2085-9) VLDL Cholesterol [place] (test code = 12 mg/dL 5-40 66848-9) LDL Cholesterol Calc (test code = 97 mg/dL 0-99 79641-5) Comment: (test code = 90354-3) [facility] Description: Lipid [id number] 01:51:00 Test Item Value Reference Range Interpretation Comments Cholesterol, Total (test code = 178 mg/dL 119-928 1423-3) Triglycerides (test code = 2571-8) 61 mg/dL 0-149 HDL Cholesterol (test code = 69 mg/dL >39 2085-9) VLDL Cholesterol [place] (test code = 12 mg/dL 5-40 47636-1) LDL Cholesterol Calc (test code = 97 mg/dL 0-99 31816-9) Comment: (test code = 44788-6) [facility] Description: Lipid [id number] 01:51:00 Test Item Value Reference Range Interpretation Comments Cholesterol, Total (test code = 178 mg/dL 461-869 9809-3) Triglycerides (test code = 2571-8) 61 mg/dL 0-149 HDL Cholesterol (test code = 69 mg/dL >39 2085-9) VLDL Cholesterol [place] (test code = 12 mg/dL 5-40 96077-5) LDL Cholesterol Calc (test code = 97 mg/dL 0-99 13867-0) Comment: (test code = 05524-1) [facility] Description: Lipid [id number] 01:51:00 Test Item Value Reference Range Interpretation Comments Cholesterol, Total (test code = 178 mg/dL 207-683 3062-3) Triglycerides (test code = 2571-8) 61 mg/dL 0-149 HDL Cholesterol (test code = 69 mg/dL >39 2085-9) VLDL Cholesterol [place] (test code = 12 mg/dL 5-40 95846-2) LDL Cholesterol Calc (test code = 97 mg/dL 0-99 42231-2) Comment: (test code = 27623-6) [facility] Description: Lipid [id number] 01:51:00 Test Item Value Reference Range Interpretation Comments Cholesterol, Total (test code = 178 mg/dL 005-367 9582-3) Triglycerides (test code = 2571-8) 61 mg/dL 0-149 HDL Cholesterol (test code = 69 mg/dL >39 2085-9) VLDL Cholesterol [place] (test code = 12 mg/dL 5-40 88759-5) LDL Cholesterol Calc (test code = 97 mg/dL 0-99 96494-7) Comment: (test code = 47514-6) [employer] Description: Lipid [id number] 01:51:00 Test Item Value Reference Range Interpretation Comments Cholesterol, Total (test code = 178 mg/dL 554-703 8320-3) Triglycerides (test code = 2571-8) 61 mg/dL 0-149 HDL Cholesterol (test code = 69 mg/dL >39 5-9) VLDL Cholesterol [place] (test code = 12 mg/dL 5-40 45063-8) LDL Cholesterol Calc (test code = 97 mg/dL 0-99 52105-7) Comment: (test code = 48931-1) [employer] Description: Lipid [id number] 01:51:00 Test Item Value Reference Range Interpretation Comments Cholesterol, Total (test code = 178 mg/dL 473-704 0604-3) Triglycerides (test code = 2571-8) 61 mg/dL 0-149 HDL Cholesterol (test code = 69 mg/dL >39 5-9) VLDL Cholesterol [place] (test code = 12 mg/dL 5-40 45459-5) LDL Cholesterol Calc (test code = 97 mg/dL 0-99 43243-8) Comment: (test code = 33253-2) [employer] Description: Lipid [id number] 01:51:00 Test Item Value Reference Range Interpretation Comments Cholesterol, Total (test code = 178 mg/dL 393-153 6649-3) Triglycerides (test code = 2571-8) 61 mg/dL 0-149 HDL Cholesterol (test code = 69 mg/dL >39 5-9) VLDL Cholesterol [place] (test code = 12 mg/dL 5-40 47296-3) LDL Cholesterol Calc (test code = 97 mg/dL 0-99 96855-7) Comment: (test code = 33913-7) [employer] Description: Lipid [id number] 01:51:00 Test Item Value Reference Range Interpretation Comments Cholesterol, Total (test code = 178 mg/dL 602-510 1119-3) Triglycerides (test code = 2571-8) 61 mg/dL 0-149 HDL Cholesterol (test code = 69 mg/dL >39 2085-9) VLDL Cholesterol [place] (test code = 12 mg/dL 5-40 87673-3) LDL Cholesterol Calc (test code = 97 mg/dL 0-99 16990-1) Comment: (test code = 87229-5) [facility] Description: Lipid [id number] 01:51:00 Test Item Value Reference Range Interpretation Comments Cholesterol, Total (test code = 178 mg/dL 348-018 5727-3) Triglycerides (test code = 2571-8) 61 mg/dL 0-149 HDL Cholesterol (test code = 69 mg/dL >39 5-9) VLDL Cholesterol [place] (test code = 12 mg/dL 5-40 60326-2) LDL Cholesterol Calc (test code = 97 mg/dL 0-99 23357-7) Comment: (test code = 19092-3) [facility] Description: Lipid [id number] 01:51:00 Test Item Value Reference Range Interpretation Comments Cholesterol, Total (test code = 178 mg/dL 154-622 7894-3) Triglycerides (test code = 2571-8) 61 mg/dL 0-149 HDL Cholesterol (test code = 69 mg/dL >39 5-9) VLDL Cholesterol [place] (test code = 12 mg/dL 5-40 05362-6) LDL Cholesterol Calc (test code = 97 mg/dL 0-99 95474-3) Comment: (test code = 37846-5) [facility] Description: Lipid [id number] 01:51:00 Test Item Value Reference Range Interpretation Comments Cholesterol, Total (test code = 178 mg/dL 899-677 2929-3) Triglycerides (test code = 2571-8) 61 mg/dL 0-149 HDL Cholesterol (test code = 69 mg/dL >39 5-9) VLDL Cholesterol [place] (test code = 12 mg/dL 5-40 65340-1) LDL Cholesterol Calc (test code = 97 mg/dL 0-99 87532-8) Comment: (test code = 00229-6) [facility] Description: Lipid [id number] 01:51:00 Test Item Value Reference Range Interpretation Comments Cholesterol, Total (test code = 178 mg/dL 617-838 0062-3) Triglycerides (test code = 2571-8) 61 mg/dL 0-149 HDL Cholesterol (test code = 69 mg/dL >39 2085-9) VLDL Cholesterol [place] (test code = 12 mg/dL 5-40 15522-8) LDL Cholesterol Calc (test code = 97 mg/dL 0-99 59562-9) Comment: (test code = 46669-8) [facility] Description: Lipid [id number] 01:51:00 Test Item Value Reference Range Interpretation Comments Cholesterol, Total (test code = 178 mg/dL 976-140 4567-3) Triglycerides (test code = 2571-8) 61 mg/dL 0-149 HDL Cholesterol (test code = 69 mg/dL >39 5-9) VLDL Cholesterol [place] (test code = 12 mg/dL 5-40 25207-1) LDL Cholesterol Calc (test code = 97 mg/dL 0-99 37418-2) Comment: (test code = 34614-6) [facility] Description: Lipid [id number] 01:51:00 Test Item Value Reference Range Interpretation Comments Cholesterol, Total (test code = 178 mg/dL 619-462 2126-3) Triglycerides (test code = 2571-8) 61 mg/dL 0-149 HDL Cholesterol (test code = 69 mg/dL >39 5-9) VLDL Cholesterol [place] (test code = 12 mg/dL 5-40 19744-0) LDL Cholesterol Calc (test code = 97 mg/dL 0-99 24949-1) Comment: (test code = 37893-9) [facility] Description: Lipid [id number] 01:51:00 Test Item Value Reference Range Interpretation Comments Cholesterol, Total (test code = 178 mg/dL 470-462 6040-3) Triglycerides (test code = 2571-8) 61 mg/dL 0-149 HDL Cholesterol (test code = 69 mg/dL >39 5-9) VLDL Cholesterol [place] (test code = 12 mg/dL 5-40 73676-2) LDL Cholesterol Calc (test code = 97 mg/dL 0-99 85774-6) Comment: (test code = 26958-4) [facility] Description: Lipid [id number] 01:51:00 Test Item Value Reference Range Interpretation Comments Cholesterol, Total (test code = 178 mg/dL 408-521 1587-3) Triglycerides (test code = 2571-8) 61 mg/dL 0-149 HDL Cholesterol (test code = 69 mg/dL >39 2085-9) VLDL Cholesterol [place] (test code = 12 mg/dL 5-40 52397-2) LDL Cholesterol Calc (test code = 97 mg/dL 0-99 52805-6) Comment: (test code = 37397-3) [facility] Description: Comp. Metabolic Panel (14)2020-06-05 01:44:00 Test Item Value Reference Range Interpretation Comments Glucose (test code = 2345-7) 115 mg/dL 65-99 H BUN (test code = 3094-0) 4 mg/dL 6-24 L Creatinine (test code = 0.63 mg/dL 0.57-1.00 2160-0) eGFR If NonAfricn Am (test 111 mL/min/1.73 >59 code = 43001-0) eGFR If Africn Am (test code 128 mL/min/1.73 >59 = 36806-4) BUN/Creatinine Ratio (test 6 9-23 L code = 3097-3) Sodium (test code = 2951-2) 142 mmol/L 134-144 Potassium (test code = 4.2 mmol/L 3.5-5.2 2823-3) Chloride (test code = 2075-0) 105 mmol/L 96-106 Carbon Dioxide, Total (test 20 mmol/L 20-29 code = 2027-9) Calcium (test code = 92520-7) 9.1 mg/dL 8.7-10.2 Protein, Total (test code = 6.9 g/dL 6.0-8.5 2885-2) Albumin (test code = 1751-7) 4.3 g/dL 3.8-4.8 Globulin, Total (test code = 2.6 g/dL 1.5-4.5 73590-8) A/G Ratio (test code = 1.7 1.2-2.2 1759-0) Bilirubin, Total (test code = 0.2 mg/dL 0.0-1.2 1974-2) Alkaline Phosphatase (test 56 IU/L 39-117 code = 6768-6) AST (SGOT) (test code = 27 IU/L 0-40 1920-8) ALT (SGPT) (test code = 13 IU/L 0-32 1742-6) [facility] Description: Comp. Metabolic [facility] (142020-06-05 01:44:00 Test Item Value Reference Range Interpretation Comments Glucose (test code = 2345-7) 115 mg/dL 65-99 H BUN (test code = 3094-0) 4 mg/dL 6-24 L Creatinine (test code = 0.63 mg/dL 0.57-1.00 2160-0) eGFR If NonAfricn Am (test 111 mL/min/1.73 >59 code = 29283-6) eGFR If Africn Am (test code 128 mL/min/1.73 >59 = 71123-1) BUN/Creatinine Ratio (test 6 9-23 L code = 3097-3) Sodium (test code = 2951-2) 142 mmol/L 134-144 Potassium (test code = 4.2 mmol/L 3.5-5.2 2823-3) Chloride (test code = 2075-0) 105 mmol/L 96-106 Carbon Dioxide, Total (test 20 mmol/L 20-29 code = 8-9) Calcium (test code = 37955-2) 9.1 mg/dL 8.7-10.2 Protein, Total (test code = 6.9 g/dL 6.0-8.5 2885-2) Albumin (test code = 1751-7) 4.3 g/dL 3.8-4.8 Globulin, Total (test code = 2.6 g/dL 1.5-4.5 73064-0) A/G Ratio (test code = 1.7 1.2-2.2 1759-0) Bilirubin, Total (test code = 0.2 mg/dL 0.0-1.2 1975-2) Alkaline Phosphatase (test 56 IU/L 39-117 code = 6768-6) AST (SGOT) (test code = 27 IU/L 0-40 1920-8) ALT (SGPT) (test code = 13 IU/L 0-32 1742-6) [facility] Description: Comp. Metabolic Panel (14)2020-06-05 01:44:00 Test Item Value Reference Range Interpretation Comments Glucose (test code = 2345-7) 115 mg/dL 65-99 H BUN (test code = 3094-0) 4 mg/dL 6-24 L Creatinine (test code = 0.63 mg/dL 0.57-1.00 2160-0) eGFR If NonAfricn Am (test 111 mL/min/1.73 >59 code = 71613-1) eGFR If Africn Am (test code 128 mL/min/1.73 >59 = 74790-0) BUN/Creatinine Ratio (test 6 9-23 L code = 3097-3) Sodium (test code = 2951-2) 142 mmol/L 134-144 Potassium (test code = 4.2 mmol/L 3.5-5.2 2823-3) Chloride (test code = 2075-0) 105 mmol/L 96-106 Carbon Dioxide, Total (test 20 mmol/L 20-29 code = 8-9) Calcium (test code = 78868-6) 9.1 mg/dL 8.7-10.2 Protein, Total (test code = 6.9 g/dL 6.0-8.5 2885-2) Albumin (test code = 1751-7) 4.3 g/dL 3.8-4.8 Globulin, Total (test code = 2.6 g/dL 1.5-4.5 52252-7) A/G Ratio (test code = 1.7 1.2-2.2 1759-0) Bilirubin, Total (test code = 0.2 mg/dL 0.0-1.2 1975-2) Alkaline Phosphatase (test 56 IU/L 39-117 code = 6768-6) AST (SGOT) (test code = 27 IU/L 0-40 1920-8) ALT (SGPT) (test code = 13 IU/L 0-32 1742-6) [facility] Description: Comp. Metabolic Panel (14)2020-06-05 01:44:00 Test Item Value Reference Range Interpretation Comments Glucose (test code = 2345-7) 115 mg/dL 65-99 H BUN (test code = 3094-0) 4 mg/dL 6-24 L Creatinine (test code = 0.63 mg/dL 0.57-1.00 2160-0) eGFR If NonAfricn Am (test 111 mL/min/1.73 >59 code = 24028-9) eGFR If Africn Am (test code 128 mL/min/1.73 >59 = 41244-6) BUN/Creatinine Ratio (test 6 9-23 L code = 3097-3) Sodium (test code = 2951-2) 142 mmol/L 134-144 Potassium (test code = 4.2 mmol/L 3.5-5.2 2823-3) Chloride (test code = 2075-0) 105 mmol/L 96-106 Carbon Dioxide, Total (test 20 mmol/L 20-29 code = 8-9) Calcium (test code = 35773-9) 9.1 mg/dL 8.7-10.2 Protein, Total (test code = 6.9 g/dL 6.0-8.5 2885-2) Albumin (test code = 1751-7) 4.3 g/dL 3.8-4.8 Globulin, Total (test code = 2.6 g/dL 1.5-4.5 00240-0) A/G Ratio (test code = 1.7 1.2-2.2 1759-0) Bilirubin, Total (test code = 0.2 mg/dL 0.0-1.2 1975-2) Alkaline Phosphatase (test 56 IU/L 39-117 code = 6768-6) AST (SGOT) (test code = 27 IU/L 0-40 1920-8) ALT (SGPT) (test code = 13 IU/L 0-32 1742-6) [facility] (14)2020-06-05 01:44:00 Test Item Value Reference Range Interpretation Comments Glucose (test code = 2345-7) 115 mg/dL 65-99 H BUN (test code = 3094-0) 4 mg/dL 6-24 L Creatinine (test code = 0.63 mg/dL 0.57-1.00 2160-0) eGFR If NonAfricn Am (test 111 mL/min/1.73 >59 code = 48505-3) eGFR If Africn Am (test code 128 mL/min/1.73 >59 = 35101-5) BUN/Creatinine Ratio (test 6 9-23 L code = 3097-3) Sodium (test code = 2951-2) 142 mmol/L 134-144 Potassium (test code = 4.2 mmol/L 3.5-5.2 2823-3) Chloride (test code = 2075-0) 105 mmol/L 96-106 Carbon Dioxide, Total (test 20 mmol/L 20-29 code = 8-9) Calcium (test code = 57020-2) 9.1 mg/dL 8.7-10.2 Protein, Total (test code = 6.9 g/dL 6.0-8.5 2885-2) Albumin (test code = 1751-7) 4.3 g/dL 3.8-4.8 Globulin, Total (test code = 2.6 g/dL 1.5-4.5 96651-3) A/G Ratio (test code = 1.7 1.2-2.2 1759-0) Bilirubin, Total (test code = 0.2 mg/dL 0.0-1.2 1974-2) Alkaline Phosphatase (test 56 IU/L 39-117 code = 6768-6) AST (SGOT) (test code = 27 IU/L 0-40 1920-8) ALT (SGPT) (test code = 13 IU/L 0-32 1742-6) [facility] Description: Comp. Metabolic Panel (14)2020-06-05 01:44:00 Test Item Value Reference Range Interpretation Comments Glucose (test code = 2345-7) 115 mg/dL 65-99 H BUN (test code = 3094-0) 4 mg/dL 6-24 L Creatinine (test code = 0.63 mg/dL 0.57-1.00 2160-0) eGFR If NonAfricn Am (test 111 mL/min/1.73 >59 code = 28892-1) eGFR If Africn Am (test code 128 mL/min/1.73 >59 = 03491-7) BUN/Creatinine Ratio (test 6 9-23 L code = 3097-3) Sodium (test code = 2951-2) 142 mmol/L 134-144 Potassium (test code = 4.2 mmol/L 3.5-5.2 2823-3) Chloride (test code = 2075-0) 105 mmol/L 96-106 Carbon Dioxide, Total (test 20 mmol/L -29 code = 2027-9) Calcium (test code = 08085-1) 9.1 mg/dL 8.7-10.2 Protein, Total (test code = 6.9 g/dL 6.0-8.5 2885-2) Albumin (test code = 1751-7) 4.3 g/dL 3.8-4.8 Globulin, Total (test code = 2.6 g/dL 1.5-4.5 87536-7) A/G Ratio (test code = 1.7 1.2-2.2 1759-0) Bilirubin, Total (test code = 0.2 mg/dL 0.0-1.2 1975-2) Alkaline Phosphatase (test 56 IU/L 39-117 code = 6768-6) AST (SGOT) (test code = 27 IU/L 0-40 1920-8) ALT (SGPT) (test code = 13 IU/L 0-32 1742-6) [facility] Description: Comp. Metabolic Panel (14)2020-06-05 01:44:00 Test Item Value Reference Range Interpretation Comments Glucose (test code = 2345-7) 115 mg/dL 65-99 H BUN (test code = 3094-0) 4 mg/dL 6-24 L Creatinine (test code = 0.63 mg/dL 0.57-1.00 2160-0) eGFR If NonAfricn Am (test 111 mL/min/1.73 >59 code = 80629-2) eGFR If Africn Am (test code 128 mL/min/1.73 >59 = 86087-7) BUN/Creatinine Ratio (test 6 9-23 L code = 3097-3) Sodium (test code = 2951-2) 142 mmol/L 134-144 Potassium (test code = 4.2 mmol/L 3.5-5.2 2823-3) Chloride (test code = 2075-0) 105 mmol/L 96-106 Carbon Dioxide, Total (test 20 mmol/L -29 code = 2027-9) Calcium (test code = 09987-7) 9.1 mg/dL 8.7-10.2 Protein, Total (test code = 6.9 g/dL 6.0-8.5 2885-2) Albumin (test code = 1751-7) 4.3 g/dL 3.8-4.8 Globulin, Total (test code = 2.6 g/dL 1.5-4.5 70189-3) A/G Ratio (test code = 1.7 1.2-2.2 1759-0) Bilirubin, Total (test code = 0.2 mg/dL 0.0-1.2 1975-2) Alkaline Phosphatase (test 56 IU/L 39-117 code = 6768-6) AST (SGOT) (test code = 27 IU/L 0-40 1920-8) ALT (SGPT) (test code = 13 IU/L 0-32 1742-6) [facility] Description: Comp. Metabolic Panel (14)2020-06-05 01:44:00 Test Item Value Reference Range Interpretation Comments Glucose (test code = 2345-7) 115 mg/dL 65-99 H BUN (test code = 3094-0) 4 mg/dL 6-24 L Creatinine (test code = 0.63 mg/dL 0.57-1.00 2160-0) eGFR If NonAfricn Am (test 111 mL/min/1.73 >59 code = 04185-7) eGFR If Africn Am (test code 128 mL/min/1.73 >59 = 00811-3) BUN/Creatinine Ratio (test 6 9-23 L code = 3097-3) Sodium (test code = 2951-2) 142 mmol/L 134-144 Potassium (test code = 4.2 mmol/L 3.5-5.2 2823-3) Chloride (test code = 2075-0) 105 mmol/L 96-106 Carbon Dioxide, Total (test 20 mmol/L 20-29 code = 8-9) Calcium (test code = 05818-4) 9.1 mg/dL 8.7-10.2 Protein, Total (test code = 6.9 g/dL 6.0-8.5 2885-2) Albumin (test code = 1751-7) 4.3 g/dL 3.8-4.8 Globulin, Total (test code = 2.6 g/dL 1.5-4.5 78894-3) A/G Ratio (test code = 1.7 1.2-2.2 1759-0) Bilirubin, Total (test code = 0.2 mg/dL 0.0-1.2 1974-) Alkaline Phosphatase (test 56 IU/L 39-117 code = 6768-6) AST (SGOT) (test code = 27 IU/L 0-40 1920-8) ALT (SGPT) (test code = 13 IU/L 0-32 1742-6) [facility] Description: Comp. Metabolic Panel ()2020-06-05 01:44:00 Test Item Value Reference Range Interpretation Comments Glucose (test code = 2345-7) 115 mg/dL 65-99 H BUN (test code = 3094-0) 4 mg/dL 6-24 L Creatinine (test code = 0.63 mg/dL 0.57-1.00 2160-0) eGFR If NonAfricn Am (test 111 mL/min/1.73 >59 code = 01052-1) eGFR If Africn Am (test code 128 mL/min/1.73 >59 = 30289-4) BUN/Creatinine Ratio (test 6 9-23 L code = 3097-3) Sodium (test code = 2951-2) 142 mmol/L 134-144 Potassium (test code = 4.2 mmol/L 3.5-5.2 2823-3) Chloride (test code = 2075-0) 105 mmol/L 96-106 Carbon Dioxide, Total (test 20 mmol/L 20-29 code = 8-9) Calcium (test code = 85992-0) 9.1 mg/dL 8.7-10.2 Protein, Total (test code = 6.9 g/dL 6.0-8.5 2885-2) Albumin (test code = 1751-7) 4.3 g/dL 3.8-4.8 Globulin, Total (test code = 2.6 g/dL 1.5-4.5 81875-9) A/G Ratio (test code = 1.7 1.2-2.2 1759-0) Bilirubin, Total (test code = 0.2 mg/dL 0.0-1.2 1974-) Alkaline Phosphatase (test 56 IU/L 39-117 code = 6768-6) AST (SGOT) (test code = 27 IU/L 0-40 1920-8) ALT (SGPT) (test code = 13 IU/L 0-32 1742-6) [facility] Description: Comp. Metabolic Panel (14)2020-06-05 01:44:00 Test Item Value Reference Range Interpretation Comments Glucose (test code = 2345-7) 115 mg/dL 65-99 H BUN (test code = 3094-0) 4 mg/dL 6-24 L Creatinine (test code = 0.63 mg/dL 0.57-1.00 2160-0) eGFR If NonAfricn Am (test 111 mL/min/1.73 >59 code = 73847-6) eGFR If Africn Am (test code 128 mL/min/1.73 >59 = 23980-6) BUN/Creatinine Ratio (test 6 9-23 L code = 3097-3) Sodium (test code = 2951-2) 142 mmol/L 134-144 Potassium (test code = 4.2 mmol/L 3.5-5.2 2823-3) Chloride (test code = 2075-0) 105 mmol/L 96-106 Carbon Dioxide, Total (test 20 mmol/L 20-29 code = 2027-9) Calcium (test code = 12270-7) 9.1 mg/dL 8.7-10.2 Protein, Total (test code = 6.9 g/dL 6.0-8.5 2885-2) Albumin (test code = 1751-7) 4.3 g/dL 3.8-4.8 Globulin, Total (test code = 2.6 g/dL 1.5-4.5 24825-0) A/G Ratio (test code = 1.7 1.2-2.2 1758-0) Bilirubin, Total (test code = 0.2 mg/dL 0.0-1.2 1974-) Alkaline Phosphatase (test 56 IU/L 39-117 code = 6768-6) AST (SGOT) (test code = 27 IU/L 0-40 1920-8) ALT (SGPT) (test code = 13 IU/L 0-32 1742-6) [facility] (14)2020-06-05 01:44:00 Test Item Value Reference Range Interpretation Comments Glucose (test code = 2345-7) 115 mg/dL 65-99 H BUN (test code = 3094-0) 4 mg/dL 6-24 L Creatinine (test code = 0.63 mg/dL 0.57-1.00 2160-0) eGFR If NonAfricn Am (test 111 mL/min/1.73 >59 code = 85219-2) eGFR If Africn Am (test code 128 mL/min/1.73 >59 = 74941-3) BUN/Creatinine Ratio (test 6 9-23 L code = 3097-3) Sodium (test code = 2951-2) 142 mmol/L 134-144 Potassium (test code = 4.2 mmol/L 3.5-5.2 2823-3) Chloride (test code = 2075-0) 105 mmol/L 96-106 Carbon Dioxide, Total (test 20 mmol/L 20-29 code = 8-9) Calcium (test code = 32011-0) 9.1 mg/dL 8.7-10.2 Protein, Total (test code = 6.9 g/dL 6.0-8.5 2885-2) Albumin (test code = 1751-7) 4.3 g/dL 3.8-4.8 Globulin, Total (test code = 2.6 g/dL 1.5-4.5 48391-4) A/G Ratio (test code = 1.7 1.2-2.2 1759-0) Bilirubin, Total (test code = 0.2 mg/dL 0.0-1.2 1975-2) Alkaline Phosphatase (test 56 IU/L 39-117 code = 6768-6) AST (SGOT) (test code = 27 IU/L 0-40 1920-8) ALT (SGPT) (test code = 13 IU/L 0-32 1742-6) [facility] Description: Comp. Metabolic Panel (14)2020-06-05 01:44:00 Test Item Value Reference Range Interpretation Comments Glucose (test code = 2345-7) 115 mg/dL 65-99 H BUN (test code = 3094-0) 4 mg/dL 6-24 L Creatinine (test code = 0.63 mg/dL 0.57-1.00 2160-0) eGFR If NonAfricn Am (test 111 mL/min/1.73 >59 code = 77708-1) eGFR If Africn Am (test code 128 mL/min/1.73 >59 = 61409-9) BUN/Creatinine Ratio (test 6 9-23 L code = 3097-3) Sodium (test code = 2951-2) 142 mmol/L 134-144 Potassium (test code = 4.2 mmol/L 3.5-5.2 2823-3) Chloride (test code = 2075-0) 105 mmol/L 96-106 Carbon Dioxide, Total (test 20 mmol/L 20-29 code = 2028-9) Calcium (test code = 18746-7) 9.1 mg/dL 8.7-10.2 Protein, Total (test code = 6.9 g/dL 6.0-8.5 2885-2) Albumin (test code = 1751-7) 4.3 g/dL 3.8-4.8 Globulin, Total (test code = 2.6 g/dL 1.5-4.5 67512-7) A/G Ratio (test code = 1.7 1.2-2.2 1759-0) Bilirubin, Total (test code = 0.2 mg/dL 0.0-1.2 1975-2) Alkaline Phosphatase (test 56 IU/L 39-117 code = 6768-6) AST (SGOT) (test code = 27 IU/L 0-40 1920-8) ALT (SGPT) (test code = 13 IU/L 0-32 1742-6) [facility] Description: Comp. Metabolic Panel (14)2020-06-05 01:44:00 Test Item Value Reference Range Interpretation Comments Glucose (test code = 2345-7) 115 mg/dL 65-99 H BUN (test code = 3094-0) 4 mg/dL 6-24 L Creatinine (test code = 0.63 mg/dL 0.57-1.00 2160-0) eGFR If NonAfricn Am (test 111 mL/min/1.73 >59 code = 54339-4) eGFR If Africn Am (test code 128 mL/min/1.73 >59 = 40344-8) BUN/Creatinine Ratio (test 6 9-23 L code = 3097-3) Sodium (test code = 2951-2) 142 mmol/L 134-144 Potassium (test code = 4.2 mmol/L 3.5-5.2 2823-3) Chloride (test code = 2075-0) 105 mmol/L 96-106 Carbon Dioxide, Total (test 20 mmol/L 20-29 code = 8-9) Calcium (test code = 82154-9) 9.1 mg/dL 8.7-10.2 Protein, Total (test code = 6.9 g/dL 6.0-8.5 2885-2) Albumin (test code = 1751-7) 4.3 g/dL 3.8-4.8 Globulin, Total (test code = 2.6 g/dL 1.5-4.5 64501-9) A/G Ratio (test code = 1.7 1.2-2.2 1759-0) Bilirubin, Total (test code = 0.2 mg/dL 0.0-1.2 1975-2) Alkaline Phosphatase (test 56 IU/L 39-117 code = 6768-6) AST (SGOT) (test code = 27 IU/L 0-40 1920-8) ALT (SGPT) (test code = 13 IU/L 0-32 1742-6) [facility] Description: Comp. Metabolic Panel (2020-06-05 01:44:00 Test Item Value Reference Range Interpretation Comments Glucose (test code = 2345-7) 115 mg/dL 65-99 H BUN (test code = 3094-0) 4 mg/dL 6-24 L Creatinine (test code = 0.63 mg/dL 0.57-1.00 2160-0) eGFR If NonAfricn Am (test 111 mL/min/1.73 >59 code = 73067-7) eGFR If Africn Am (test code 128 mL/min/1.73 >59 = 09801-9) BUN/Creatinine Ratio (test 6 9-23 L code = 3097-3) Sodium (test code = 2951-2) 142 mmol/L 134-144 Potassium (test code = 4.2 mmol/L 3.5-5.2 2823-3) Chloride (test code = 2075-0) 105 mmol/L 96-106 Carbon Dioxide, Total (test 20 mmol/L -29 code = 2027-) Calcium (test code = 67224-3) 9.1 mg/dL 8.7-10.2 Protein, Total (test code = 6.9 g/dL 6.0-8.5 2885-2) Albumin (test code = 1751-7) 4.3 g/dL 3.8-4.8 Globulin, Total (test code = 2.6 g/dL 1.5-4.5 77754-3) A/G Ratio (test code = 1.7 1.2-2.2 1759-0) Bilirubin, Total (test code = 0.2 mg/dL 0.0-1.2 1975-2) Alkaline Phosphatase (test 56 IU/L 39-117 code = 6768-6) AST (SGOT) (test code = 27 IU/L 0-40 1920-8) ALT (SGPT) (test code = 13 IU/L 0-32 1742-6) [facility] Description: Comp. Metabolic Panel (2020-06-05 01:44:00 Test Item Value Reference Range Interpretation Comments Glucose (test code = 2345-7) 115 mg/dL 65-99 H BUN (test code = 3094-0) 4 mg/dL 6-24 L Creatinine (test code = 0.63 mg/dL 0.57-1.00 2160-0) eGFR If NonAfricn Am (test 111 mL/min/1.73 >59 code = 32373-4) eGFR If Africn Am (test code 128 mL/min/1.73 >59 = 16682-3) BUN/Creatinine Ratio (test 6 9-23 L code = 3097-3) Sodium (test code = 2951-2) 142 mmol/L 134-144 Potassium (test code = 4.2 mmol/L 3.5-5.2 2823-3) Chloride (test code = 2075-0) 105 mmol/L 96-106 Carbon Dioxide, Total (test 20 mmol/L -29 code = 2027-9) Calcium (test code = 95634-2) 9.1 mg/dL 8.7-10.2 Protein, Total (test code = 6.9 g/dL 6.0-8.5 2885-2) Albumin (test code = 1751-7) 4.3 g/dL 3.8-4.8 Globulin, Total (test code = 2.6 g/dL 1.5-4.5 04093-5) A/G Ratio (test code = 1.7 1.2-2.2 1759-0) Bilirubin, Total (test code = 0.2 mg/dL 0.0-1.2 1975-2) Alkaline Phosphatase (test 56 IU/L 39-117 code = 6768-6) AST (SGOT) (test code = 27 IU/L 0-40 1920-8) ALT (SGPT) (test code = 13 IU/L 0-32 1742-6) [facility] Description: Comp. Metabolic Panel (2020-06-05 01:44:00 Test Item Value Reference Range Interpretation Comments Glucose (test code = 2345-7) 115 mg/dL 65-99 H BUN (test code = 3094-0) 4 mg/dL 6-24 L Creatinine (test code = 0.63 mg/dL 0.57-1.00 2160-0) eGFR If NonAfricn Am (test 111 mL/min/1.73 >59 code = 39715-7) eGFR If Africn Am (test code 128 mL/min/1.73 >59 = 80767-5) BUN/Creatinine Ratio (test 6 9-23 L code = 3097-3) Sodium (test code = 2951-2) 142 mmol/L 134-144 Potassium (test code = 4.2 mmol/L 3.5-5.2 2823-3) Chloride (test code = 2075-0) 105 mmol/L 96-106 Carbon Dioxide, Total (test 20 mmol/L 20-29 code = 8-9) Calcium (test code = 28742-3) 9.1 mg/dL 8.7-10.2 Protein, Total (test code = 6.9 g/dL 6.0-8.5 2885-2) Albumin (test code = 1751-7) 4.3 g/dL 3.8-4.8 Globulin, Total (test code = 2.6 g/dL 1.5-4.5 83092-6) A/G Ratio (test code = 1.7 1.2-2.2 1759-0) Bilirubin, Total (test code = 0.2 mg/dL 0.0-1.2 1974-) Alkaline Phosphatase (test 56 IU/L 39-117 code = 6768-6) AST (SGOT) (test code = 27 IU/L 0-40 1920-8) ALT (SGPT) (test code = 13 IU/L 0-32 1742-6) [facility]: Comp[facility] Met[facility] (14)2020-06-05 01:44:00 Test Item Value Reference Range Interpretation Comments Glucose (test code = 2345-7) 115 mg/dL 65-99 H BUN (test code = 3094-0) 4 mg/dL 6-24 L Creatinine (test code = 0.63 mg/dL 0.57-1.00 2160-0) eGFR If NonAfricn Am (test 111 mL/min/1.73 >59 code = 27055-8) eGFR If Africn Am (test code 128 mL/min/1.73 >59 = 95717-3) BUN/Creatinine Ratio (test 6 9-23 L code = 3097-3) Sodium (test code = 2951-2) 142 mmol/L 134-144 Potassium (test code = 4.2 mmol/L 3.5-5.2 2823-3) Chloride (test code = 2075-0) 105 mmol/L 96-106 Carbon Dioxide, Total (test 20 mmol/L 20-29 code = 2027-9) Calcium (test code = 11693-8) 9.1 mg/dL 8.7-10.2 Protein, Total (test code = 6.9 g/dL 6.0-8.5 2885-2) Albumin (test code = 1751-7) 4.3 g/dL 3.8-4.8 Globulin, Total (test code = 2.6 g/dL 1.5-4.5 70022-4) A/G Ratio (test code = 1.7 1.2-2.2 1759-0) Bilirubin, Total (test code = 0.2 mg/dL 0.0-1.2 1974-) Alkaline Phosphatase (test 56 IU/L 39-117 code = 6768-6) AST (SGOT) (test code = 27 IU/L 0-40 1920-8) ALT (SGPT) (test code = 13 IU/L 0-32 1742-6) [facility]: Comp. Metabolic [facility] (14)2020-06-05 01:44:00 Test Item Value Reference Range Interpretation Comments Glucose (test code = 2345-7) 115 mg/dL 65-99 H BUN (test code = 3094-0) 4 mg/dL 6-24 L Creatinine (test code = 0.63 mg/dL 0.57-1.00 2160-0) eGFR If NonAfricn Am (test 111 mL/min/1.73 >59 code = 73329-4) eGFR If Africn Am (test code 128 mL/min/1.73 >59 = 33496-1) BUN/Creatinine Ratio (test 6 9-23 L code = 3097-3) Sodium (test code = 2951-2) 142 mmol/L 134-144 Potassium (test code = 4.2 mmol/L 3.5-5.2 2823-3) Chloride (test code = 2075-0) 105 mmol/L 96-106 Carbon Dioxide, Total (test 20 mmol/L 20-29 code = 8-9) Calcium (test code = 46309-2) 9.1 mg/dL 8.7-10.2 Protein, Total (test code = 6.9 g/dL 6.0-8.5 2885-2) Albumin (test code = 1751-7) 4.3 g/dL 3.8-4.8 Globulin, Total (test code = 2.6 g/dL 1.5-4.5 76848-2) A/G Ratio (test code = 1.7 1.2-2.2 1758-0) Bilirubin, Total (test code = 0.2 mg/dL 0.0-1.2 1974-11) Alkaline Phosphatase (test 56 IU/L 39-117 code = 6768-6) AST (SGOT) (test code = 27 IU/L 0-40 1920-8) ALT (SGPT) (test code = 13 IU/L 0-32 1742-6) [facility] Description: Comp. Metabolic Panel (14)2020-06-05 01:44:00 Test Item Value Reference Range Interpretation Comments Glucose (test code = 2345-7) 115 mg/dL 65-99 H BUN (test code = 3094-0) 4 mg/dL 6-24 L Creatinine (test code = 0.63 mg/dL 0.57-1.00 2160-0) eGFR If NonAfricn Am (test 111 mL/min/1.73 >59 code = 53986-8) eGFR If Africn Am (test code 128 mL/min/1.73 >59 = 50270-1) BUN/Creatinine Ratio (test 6 9-23 L code = 3097-3) Sodium (test code = 2951-2) 142 mmol/L 134-144 Potassium (test code = 4.2 mmol/L 3.5-5.2 2823-3) Chloride (test code = 2075-0) 105 mmol/L 96-106 Carbon Dioxide, Total (test 20 mmol/L 20-29 code = 2027-9) Calcium (test code = 54888-7) 9.1 mg/dL 8.7-10.2 Protein, Total (test code = 6.9 g/dL 6.0-8.5 2885-2) Albumin (test code = 1751-7) 4.3 g/dL 3.8-4.8 Globulin, Total (test code = 2.6 g/dL 1.5-4.5 66240-2) A/G Ratio (test code = 1.7 1.2-2.2 1759-0) Bilirubin, Total (test code = 0.2 mg/dL 0.0-1.2 1975-2) Alkaline Phosphatase (test 56 IU/L 39-117 code = 6768-6) AST (SGOT) (test code = 27 IU/L 0-40 1920-8) ALT (SGPT) (test code = 13 IU/L 0-32 1742-6) [facility] Description: Comp. Metabolic Panel (14)2020-06-05 01:44:00 Test Item Value Reference Range Interpretation Comments Glucose (test code = 2345-7) 115 mg/dL 65-99 H BUN (test code = 3094-0) 4 mg/dL 6-24 L Creatinine (test code = 0.63 mg/dL 0.57-1.00 2160-0) eGFR If NonAfricn Am (test 111 mL/min/1.73 >59 code = 05114-0) eGFR If Africn Am (test code 128 mL/min/1.73 >59 = 63577-0) BUN/Creatinine Ratio (test 6 9-23 L code = 3097-3) Sodium (test code = 2951-2) 142 mmol/L 134-144 Potassium (test code = 4.2 mmol/L 3.5-5.2 2823-3) Chloride (test code = 2075-0) 105 mmol/L 96-106 Carbon Dioxide, Total (test 20 mmol/L 20-29 code = 8-9) Calcium (test code = 25307-3) 9.1 mg/dL 8.7-10.2 Protein, Total (test code = 6.9 g/dL 6.0-8.5 2885-2) Albumin (test code = 1751-7) 4.3 g/dL 3.8-4.8 Globulin, Total (test code = 2.6 g/dL 1.5-4.5 12655-2) A/G Ratio (test code = 1.7 1.2-2.2 1759-0) Bilirubin, Total (test code = 0.2 mg/dL 0.0-1.2 1975-2) Alkaline Phosphatase (test 56 IU/L 39-117 code = 6768-6) AST (SGOT) (test code = 27 IU/L 0-40 1920-8) ALT (SGPT) (test code = 13 IU/L 0-32 1742-6) [facility] Description: Comp. Metabolic Panel (142020-06-05 01:44:00 Test Item Value Reference Range Interpretation Comments Glucose (test code = 2345-7) 115 mg/dL 65-99 H BUN (test code = 3094-0) 4 mg/dL 6-24 L Creatinine (test code = 0.63 mg/dL 0.57-1.00 2160-0) eGFR If NonAfricn Am (test 111 mL/min/1.73 >59 code = 83480-8) eGFR If Africn Am (test code 128 mL/min/1.73 >59 = 90820-4) BUN/Creatinine Ratio (test 6 9-23 L code = 3097-3) Sodium (test code = 2951-2) 142 mmol/L 134-144 Potassium (test code = 4.2 mmol/L 3.5-5.2 2823-3) Chloride (test code = 2075-0) 105 mmol/L 96-106 Carbon Dioxide, Total (test 20 mmol/L 20-29 code = 8-9) Calcium (test code = 22814-8) 9.1 mg/dL 8.7-10.2 Protein, Total (test code = 6.9 g/dL 6.0-8.5 2885-2) Albumin (test code = 1751-7) 4.3 g/dL 3.8-4.8 Globulin, Total (test code = 2.6 g/dL 1.5-4.5 37055-3) A/G Ratio (test code = 1.7 1.2-2.2 1759-0) Bilirubin, Total (test code = 0.2 mg/dL 0.0-1.2 1975-2) Alkaline Phosphatase (test 56 IU/L 39-117 code = 6768-6) AST (SGOT) (test code = 27 IU/L 0-40 1920-8) ALT (SGPT) (test code = 13 IU/L 0-32 1742-6) [facility] Description: Comp. Metabolic Panel (142020-06-05 01:44:00 Test Item Value Reference Range Interpretation Comments Glucose (test code = 2345-7) 115 mg/dL 65-99 H BUN (test code = 3094-0) 4 mg/dL 6-24 L Creatinine (test code = 0.63 mg/dL 0.57-1.00 2160-0) eGFR If NonAfricn Am (test 111 mL/min/1.73 >59 code = 82518-2) eGFR If Africn Am (test code 128 mL/min/1.73 >59 = 49588-2) BUN/Creatinine Ratio (test 6 9-23 L code = 3097-3) Sodium (test code = 2951-2) 142 mmol/L 134-144 Potassium (test code = 4.2 mmol/L 3.5-5.2 2823-3) Chloride (test code = 2075-0) 105 mmol/L 96-106 Carbon Dioxide, Total (test 20 mmol/L -29 code = 2027-) Calcium (test code = 58052-5) 9.1 mg/dL 8.7-10.2 Protein, Total (test code = 6.9 g/dL 6.0-8.5 2885-2) Albumin (test code = 1751-7) 4.3 g/dL 3.8-4.8 Globulin, Total (test code = 2.6 g/dL 1.5-4.5 24752-0) A/G Ratio (test code = 1.7 1.2-2.2 1759-0) Bilirubin, Total (test code = 0.2 mg/dL 0.0-1.2 1975-2) Alkaline Phosphatase (test 56 IU/L 39-117 code = 6768-6) AST (SGOT) (test code = 27 IU/L 0-40 1920-8) ALT (SGPT) (test code = 13 IU/L 0-32 1742-6) [facility] Description: Comp. Metabolic Panel (2020-06-05 01:44:00 Test Item Value Reference Range Interpretation Comments Glucose (test code = 2345-7) 115 mg/dL 65-99 H BUN (test code = 3094-0) 4 mg/dL 6-24 L Creatinine (test code = 0.63 mg/dL 0.57-1.00 2160-0) eGFR If NonAfricn Am (test 111 mL/min/1.73 >59 code = 19706-2) eGFR If Africn Am (test code 128 mL/min/1.73 >59 = 70712-7) BUN/Creatinine Ratio (test 6 9-23 L code = 3097-3) Sodium (test code = 2951-2) 142 mmol/L 134-144 Potassium (test code = 4.2 mmol/L 3.5-5.2 2823-3) Chloride (test code = 2075-0) 105 mmol/L 96-106 Carbon Dioxide, Total (test 20 mmol/L -29 code = 2027-9) Calcium (test code = 58097-4) 9.1 mg/dL 8.7-10.2 Protein, Total (test code = 6.9 g/dL 6.0-8.5 2885-2) Albumin (test code = 1751-7) 4.3 g/dL 3.8-4.8 Globulin, Total (test code = 2.6 g/dL 1.5-4.5 24250-3) A/G Ratio (test code = 1.7 1.2-2.2 1759-0) Bilirubin, Total (test code = 0.2 mg/dL 0.0-1.2 1975-2) Alkaline Phosphatase (test 56 IU/L 39-117 code = 6768-6) AST (SGOT) (test code = 27 IU/L 0-40 1920-8) ALT (SGPT) (test code = 13 IU/L 0-32 1742-6) [facility] Description: Comp. Metabolic Panel (2020-06-05 01:44:00 Test Item Value Reference Range Interpretation Comments Glucose (test code = 2345-7) 115 mg/dL 65-99 H BUN (test code = 3094-0) 4 mg/dL 6-24 L Creatinine (test code = 0.63 mg/dL 0.57-1.00 2160-0) eGFR If NonAfricn Am (test 111 mL/min/1.73 >59 code = 93339-6) eGFR If Africn Am (test code 128 mL/min/1.73 >59 = 81572-3) BUN/Creatinine Ratio (test 6 9-23 L code = 3097-3) Sodium (test code = 2951-2) 142 mmol/L 134-144 Potassium (test code = 4.2 mmol/L 3.5-5.2 2823-3) Chloride (test code = 2075-0) 105 mmol/L 96-106 Carbon Dioxide, Total (test 20 mmol/L 20-29 code = 8-9) Calcium (test code = 12533-2) 9.1 mg/dL 8.7-10.2 Protein, Total (test code = 6.9 g/dL 6.0-8.5 2885-2) Albumin (test code = 1751-7) 4.3 g/dL 3.8-4.8 Globulin, Total (test code = 2.6 g/dL 1.5-4.5 05336-5) A/G Ratio (test code = 1.7 1.2-2.2 1759-0) Bilirubin, Total (test code = 0.2 mg/dL 0.0-1.2 1974-2) Alkaline Phosphatase (test 56 IU/L 39-117 code = 6768-6) AST (SGOT) (test code = 27 IU/L 0-40 1920-8) ALT (SGPT) (test code = 13 IU/L 0-32 1742-6) [facility] Description: Comp. Metabolic Panel (2020-06-05 01:44:00 Test Item Value Reference Range Interpretation Comments Glucose (test code = 2345-7) 115 mg/dL 65-99 H BUN (test code = 3094-0) 4 mg/dL 6-24 L Creatinine (test code = 0.63 mg/dL 0.57-1.00 2160-0) eGFR If NonAfricn Am (test 111 mL/min/1.73 >59 code = 35422-0) eGFR If Africn Am (test code 128 mL/min/1.73 >59 = 89560-8) BUN/Creatinine Ratio (test 6 9-23 L code = 3097-3) Sodium (test code = 2951-2) 142 mmol/L 134-144 Potassium (test code = 4.2 mmol/L 3.5-5.2 2823-3) Chloride (test code = 2075-0) 105 mmol/L 96-106 Carbon Dioxide, Total (test 20 mmol/L 20-29 code = 8-9) Calcium (test code = 24700-8) 9.1 mg/dL 8.7-10.2 Protein, Total (test code = 6.9 g/dL 6.0-8.5 2885-2) Albumin (test code = 1751-7) 4.3 g/dL 3.8-4.8 Globulin, Total (test code = 2.6 g/dL 1.5-4.5 51057-3) A/G Ratio (test code = 1.7 1.2-2.2 1759-0) Bilirubin, Total (test code = 0.2 mg/dL 0.0-1.2 1974-) Alkaline Phosphatase (test 56 IU/L 39-117 code = 6768-6) AST (SGOT) (test code = 27 IU/L 0-40 1920-8) ALT (SGPT) (test code = 13 IU/L 0-32 1742-6) [facility] Description: Comp. Metabolic Panel (142020-06-05 01:44:00 Test Item Value Reference Range Interpretation Comments Glucose (test code = 2345-7) 115 mg/dL 65-99 H BUN (test code = 3094-0) 4 mg/dL 6-24 L Creatinine (test code = 0.63 mg/dL 0.57-1.00 2160-0) eGFR If NonAfricn Am (test 111 mL/min/1.73 >59 code = 37123-2) eGFR If Africn Am (test code 128 mL/min/1.73 >59 = 31285-5) BUN/Creatinine Ratio (test 6 9-23 L code = 3097-3) Sodium (test code = 2951-2) 142 mmol/L 134-144 Potassium (test code = 4.2 mmol/L 3.5-5.2 2823-3) Chloride (test code = 2075-0) 105 mmol/L 96-106 Carbon Dioxide, Total (test 20 mmol/L 20-29 code = 2027-9) Calcium (test code = 25472-9) 9.1 mg/dL 8.7-10.2 Protein, Total (test code = 6.9 g/dL 6.0-8.5 5-2) Albumin (test code = 1751-7) 4.3 g/dL 3.8-4.8 Globulin, Total (test code = 2.6 g/dL 1.5-4.5 74185-3) A/G Ratio (test code = 1.7 1.2-2.2 1758-0) Bilirubin, Total (test code = 0.2 mg/dL 0.0-1.2 1974-11) Alkaline Phosphatase (test 56 IU/L 39-117 code = 6768-6) AST (SGOT) (test code = 27 IU/L 0-40 1920-8) ALT (SGPT) (test code = 13 IU/L 0-32 1742-6) [facility] Description: Comp. Metabolic Panel (14)2020-06-05 01:44:00 Test Item Value Reference Range Interpretation Comments Glucose (test code = 2345-7) 115 mg/dL 65-99 H BUN (test code = 3094-0) 4 mg/dL 6-24 L Creatinine (test code = 0.63 mg/dL 0.57-1.00 2160-0) eGFR If NonAfricn Am (test 111 mL/min/1.73 >59 code = 75626-8) eGFR If Africn Am (test code 128 mL/min/1.73 >59 = 96507-4) BUN/Creatinine Ratio (test 6 9-23 L code = 3097-3) Sodium (test code = 2951-2) 142 mmol/L 134-144 Potassium (test code = 4.2 mmol/L 3.5-5.2 2823-3) Chloride (test code = 2075-0) 105 mmol/L 96-106 Carbon Dioxide, Total (test 20 mmol/L 20-29 code = 8-9) Calcium (test code = 77102-0) 9.1 mg/dL 8.7-10.2 Protein, Total (test code = 6.9 g/dL 6.0-8.5 2885-2) Albumin (test code = 1751-7) 4.3 g/dL 3.8-4.8 Globulin, Total (test code = 2.6 g/dL 1.5-4.5 90853-0) A/G Ratio (test code = 1.7 1.2-2.2 1759-0) Bilirubin, Total (test code = 0.2 mg/dL 0.0-1.2 1975-2) Alkaline Phosphatase (test 56 IU/L 39-117 code = 6768-6) AST (SGOT) (test code = 27 IU/L 0-40 1920-8) ALT (SGPT) (test code = 13 IU/L 0-32 1742-6) [facility] Description: Comp. Metabolic Panel (14)2020-06-05 01:44:00 Test Item Value Reference Range Interpretation Comments Glucose (test code = 2345-7) 115 mg/dL 65-99 H BUN (test code = 3094-0) 4 mg/dL 6-24 L Creatinine (test code = 0.63 mg/dL 0.57-1.00 2160-0) eGFR If NonAfricn Am (test 111 mL/min/1.73 >59 code = 87256-9) eGFR If Africn Am (test code 128 mL/min/1.73 >59 = 19883-4) BUN/Creatinine Ratio (test 6 9-23 L code = 3097-3) Sodium (test code = 2951-2) 142 mmol/L 134-144 Potassium (test code = 4.2 mmol/L 3.5-5.2 2823-3) Chloride (test code = 2075-0) 105 mmol/L 96-106 Carbon Dioxide, Total (test 20 mmol/L 20-29 code = 8-9) Calcium (test code = 05134-3) 9.1 mg/dL 8.7-10.2 Protein, Total (test code = 6.9 g/dL 6.0-8.5 2885-2) Albumin (test code = 1751-7) 4.3 g/dL 3.8-4.8 Globulin, Total (test code = 2.6 g/dL 1.5-4.5 47387-0) A/G Ratio (test code = 1.7 1.2-2.2 1759-0) Bilirubin, Total (test code = 0.2 mg/dL 0.0-1.2 1975-2) Alkaline Phosphatase (test 56 IU/L 39-117 code = 6768-6) AST (SGOT) (test code = 27 IU/L 0-40 1920-8) ALT (SGPT) (test code = 13 IU/L 0-32 1742-6) [facility] Description: Comp. Metabolic Panel (2020-06-05 01:44:00 Test Item Value Reference Range Interpretation Comments Glucose (test code = 2345-7) 115 mg/dL 65-99 H BUN (test code = 3094-0) 4 mg/dL 6-24 L Creatinine (test code = 0.63 mg/dL 0.57-1.00 2160-0) eGFR If NonAfricn Am (test 111 mL/min/1.73 >59 code = 69547-0) eGFR If Africn Am (test code 128 mL/min/1.73 >59 = 56385-8) BUN/Creatinine Ratio (test 6 9-23 L code = 3097-3) Sodium (test code = 2951-2) 142 mmol/L 134-144 Potassium (test code = 4.2 mmol/L 3.5-5.2 2823-3) Chloride (test code = 2075-0) 105 mmol/L 96-106 Carbon Dioxide, Total (test 20 mmol/L 20-29 code = 8-9) Calcium (test code = 62654-8) 9.1 mg/dL 8.7-10.2 Protein, Total (test code = 6.9 g/dL 6.0-8.5 2885-2) Albumin (test code = 1751-7) 4.3 g/dL 3.8-4.8 Globulin, Total (test code = 2.6 g/dL 1.5-4.5 58738-6) A/G Ratio (test code = 1.7 1.2-2.2 1759-0) Bilirubin, Total (test code = 0.2 mg/dL 0.0-1.2 1975-2) Alkaline Phosphatase (test 56 IU/L 39-117 code = 6768-6) AST (SGOT) (test code = 27 IU/L 0-40 1920-8) ALT (SGPT) (test code = 13 IU/L 0-32 1742-6) [facility] Description: Comp. Metabolic Panel (142020-06-05 01:44:00 Test Item Value Reference Range Interpretation Comments Glucose (test code = 2345-7) 115 mg/dL 65-99 H BUN (test code = 3094-0) 4 mg/dL 6-24 L Creatinine (test code = 0.63 mg/dL 0.57-1.00 2160-0) eGFR If NonAfricn Am (test 111 mL/min/1.73 >59 code = 27768-5) eGFR If Africn Am (test code 128 mL/min/1.73 >59 = 33049-0) BUN/Creatinine Ratio (test 6 9-23 L code = 3097-3) Sodium (test code = 2951-2) 142 mmol/L 134-144 Potassium (test code = 4.2 mmol/L 3.5-5.2 2823-3) Chloride (test code = 2075-0) 105 mmol/L 96-106 Carbon Dioxide, Total (test 20 mmol/L - code = 2027-) Calcium (test code = 41942-7) 9.1 mg/dL 8.7-10.2 Protein, Total (test code = 6.9 g/dL 6.0-8.5 2885-2) Albumin (test code = 1751-7) 4.3 g/dL 3.8-4.8 Globulin, Total (test code = 2.6 g/dL 1.5-4.5 80538-5) A/G Ratio (test code = 1.7 1.2-2.2 1759-0) Bilirubin, Total (test code = 0.2 mg/dL 0.0-1.2 1975-2) Alkaline Phosphatase (test 56 IU/L 39-117 code = 6768-6) AST (SGOT) (test code = 27 IU/L 0-40 1920-8) ALT (SGPT) (test code = 13 IU/L 0-32 1742-6) [facility] Description: Comp. Metabolic Panel (14)2020-06-05 01:44:00 Test Item Value Reference Range Interpretation Comments Glucose (test code = 2345-7) 115 mg/dL 65-99 H BUN (test code = 3094-0) 4 mg/dL 6-24 L Creatinine (test code = 0.63 mg/dL 0.57-1.00 2160-0) eGFR If NonAfricn Am (test 111 mL/min/1.73 >59 code = 88073-7) eGFR If Africn Am (test code 128 mL/min/1.73 >59 = 04880-2) BUN/Creatinine Ratio (test 6 9-23 L code = 3097-3) Sodium (test code = 2951-2) 142 mmol/L 134-144 Potassium (test code = 4.2 mmol/L 3.5-5.2 2823-3) Chloride (test code = 2075-0) 105 mmol/L 96-106 Carbon Dioxide, Total (test 20 mmol/L -29 code = 2027-9) Calcium (test code = 26872-1) 9.1 mg/dL 8.7-10.2 Protein, Total (test code = 6.9 g/dL 6.0-8.5 2885-2) Albumin (test code = 1751-7) 4.3 g/dL 3.8-4.8 Globulin, Total (test code = 2.6 g/dL 1.5-4.5 19165-7) A/G Ratio (test code = 1.7 1.2-2.2 1759-0) Bilirubin, Total (test code = 0.2 mg/dL 0.0-1.2 1975-2) Alkaline Phosphatase (test 56 IU/L 39-117 code = 6768-6) AST (SGOT) (test code = 27 IU/L 0-40 1920-8) ALT (SGPT) (test code = 13 IU/L 0-32 1742-6) [facility] Description: Comp. Metabolic Panel (2020-06-05 01:44:00 Test Item Value Reference Range Interpretation Comments Glucose (test code = 2345-7) 115 mg/dL 65-99 H BUN (test code = 3094-0) 4 mg/dL 6-24 L Creatinine (test code = 0.63 mg/dL 0.57-1.00 2160-0) eGFR If NonAfricn Am (test 111 mL/min/1.73 >59 code = 15329-2) eGFR If Africn Am (test code 128 mL/min/1.73 >59 = 74044-8) BUN/Creatinine Ratio (test 6 9-23 L code = 3097-3) Sodium (test code = 2951-2) 142 mmol/L 134-144 Potassium (test code = 4.2 mmol/L 3.5-5.2 2823-3) Chloride (test code = 2075-0) 105 mmol/L 96-106 Carbon Dioxide, Total (test 20 mmol/L 20-29 code = 8-9) Calcium (test code = 77388-2) 9.1 mg/dL 8.7-10.2 Protein, Total (test code = 6.9 g/dL 6.0-8.5 2885-2) Albumin (test code = 1751-7) 4.3 g/dL 3.8-4.8 Globulin, Total (test code = 2.6 g/dL 1.5-4.5 87914-4) A/G Ratio (test code = 1.7 1.2-2.2 1759-0) Bilirubin, Total (test code = 0.2 mg/dL 0.0-1.2 1975-2) Alkaline Phosphatase (test 56 IU/L 39-117 code = 6768-6) AST (SGOT) (test code = 27 IU/L 0-40 1920-8) ALT (SGPT) (test code = 13 IU/L 0-32 1742-6) [facility] Description: Comp. Metabolic Panel (2020-06-05 01:44:00 Test Item Value Reference Range Interpretation Comments Glucose (test code = 2345-7) 115 mg/dL 65-99 H BUN (test code = 3094-0) 4 mg/dL 6-24 L Creatinine (test code = 0.63 mg/dL 0.57-1.00 2160-0) eGFR If NonAfricn Am (test 111 mL/min/1.73 >59 code = 33718-6) eGFR If Africn Am (test code 128 mL/min/1.73 >59 = 69000-9) BUN/Creatinine Ratio (test 6 9-23 L code = 3097-3) Sodium (test code = 2951-2) 142 mmol/L 134-144 Potassium (test code = 4.2 mmol/L 3.5-5.2 2823-3) Chloride (test code = 2075-0) 105 mmol/L 96-106 Carbon Dioxide, Total (test 20 mmol/L 20-29 code = 8-9) Calcium (test code = 57909-3) 9.1 mg/dL 8.7-10.2 Protein, Total (test code = 6.9 g/dL 6.0-8.5 2885-2) Albumin (test code = 1751-7) 4.3 g/dL 3.8-4.8 Globulin, Total (test code = 2.6 g/dL 1.5-4.5 95185-7) A/G Ratio (test code = 1.7 1.2-2.2 1759-0) Bilirubin, Total (test code = 0.2 mg/dL 0.0-1.2 1974-) Alkaline Phosphatase (test 56 IU/L 39-117 code = 6768-6) AST (SGOT) (test code = 27 IU/L 0-40 1920-8) ALT (SGPT) (test code = 13 IU/L 0-32 1742-6) [facility] (2020-06-05 01:44:00 Test Item Value Reference Range Interpretation Comments Glucose (test code = 2345-7) 115 mg/dL 65-99 H BUN (test code = 3094-0) 4 mg/dL 6-24 L Creatinine (test code = 0.63 mg/dL 0.57-1.00 2160-0) eGFR If NonAfricn Am (test 111 mL/min/1.73 >59 code = 24759-7) eGFR If Africn Am (test code 128 mL/min/1.73 >59 = 91529-8) BUN/Creatinine Ratio (test 6 9-23 L code = 3097-3) Sodium (test code = 2951-2) 142 mmol/L 134-144 Potassium (test code = 4.2 mmol/L 3.5-5.2 2823-3) Chloride (test code = 2075-0) 105 mmol/L 96-106 Carbon Dioxide, Total (test 20 mmol/L 20-29 code = 8-9) Calcium (test code = 77865-9) 9.1 mg/dL 8.7-10.2 Protein, Total (test code = 6.9 g/dL 6.0-8.5 2885-2) Albumin (test code = 1751-7) 4.3 g/dL 3.8-4.8 Globulin, Total (test code = 2.6 g/dL 1.5-4.5 08137-4) A/G Ratio (test code = 1.7 1.2-2.2 9-0) Bilirubin, Total (test code = 0.2 mg/dL 0.0-1.2 1974-11) Alkaline Phosphatase (test 56 IU/L 39-117 code = 6768-6) AST (SGOT) (test code = 27 IU/L 0-40 1920-8) ALT (SGPT) (test code = 13 IU/L 0-32 1742-6) [facility]: [facility] (14)2020-06-05 01:44:00 Test Item Value Reference Range Interpretation Comments Glucose (test code = 2345-7) 115 mg/dL 65-99 H BUN (test code = 3094-0) 4 mg/dL 6-24 L Creatinine (test code = 0.63 mg/dL 0.57-1.00 2160-0) eGFR If NonAfricn Am (test 111 mL/min/1.73 >59 code = 84438-6) eGFR If Africn Am (test code 128 mL/min/1.73 >59 = 81010-0) BUN/Creatinine Ratio (test 6 9-23 L code = 3097-3) Sodium (test code = 2951-2) 142 mmol/L 134-144 Potassium (test code = 4.2 mmol/L 3.5-5.2 2823-3) Chloride (test code = 2075-0) 105 mmol/L 96-106 Carbon Dioxide, Total (test 20 mmol/L 20-29 code = 8-9) Calcium (test code = 67043-5) 9.1 mg/dL 8.7-10.2 Protein, Total (test code = 6.9 g/dL 6.0-8.5 2885-2) Albumin (test code = 1751-7) 4.3 g/dL 3.8-4.8 Globulin, Total (test code = 2.6 g/dL 1.5-4.5 73301-8) A/G Ratio (test code = 1.7 1.2-2.2 1759-0) Bilirubin, Total (test code = 0.2 mg/dL 0.0-1.2 1975-2) Alkaline Phosphatase (test 56 IU/L 39-117 code = 6768-6) AST (SGOT) (test code = 27 IU/L 0-40 1920-8) ALT (SGPT) (test code = 13 IU/L 0-32 1742-6) [facility]: Comp. Metabolic Panel (14)2020-06-05 01:44:00 Test Item Value Reference Range Interpretation Comments Glucose (test code = 2345-7) 115 mg/dL 65-99 H BUN (test code = 3094-0) 4 mg/dL 6-24 L Creatinine (test code = 0.63 mg/dL 0.57-1.00 2160-0) eGFR If NonAfricn Am (test 111 mL/min/1.73 >59 code = 67941-9) eGFR If Africn Am (test code 128 mL/min/1.73 >59 = 22151-5) BUN/Creatinine Ratio (test 6 9-23 L code = 3097-3) Sodium (test code = 2951-2) 142 mmol/L 134-144 Potassium (test code = 4.2 mmol/L 3.5-5.2 2823-3) Chloride (test code = 2075-0) 105 mmol/L 96-106 Carbon Dioxide, Total (test 20 mmol/L 20-29 code = 8-9) Calcium (test code = 29135-7) 9.1 mg/dL 8.7-10.2 Protein, Total (test code = 6.9 g/dL 6.0-8.5 2885-2) Albumin (test code = 1751-7) 4.3 g/dL 3.8-4.8 Globulin, Total (test code = 2.6 g/dL 1.5-4.5 95065-0) A/G Ratio (test code = 1.7 1.2-2.2 1759-0) Bilirubin, Total (test code = 0.2 mg/dL 0.0-1.2 1975-2) Alkaline Phosphatase (test 56 IU/L 39-117 code = 6768-6) AST (SGOT) (test code = 27 IU/L 0-40 1920-8) ALT (SGPT) (test code = 13 IU/L 0-32 1742-6) [facility] Description: Comp. Metabolic Panel (14)2020-06-05 01:44:00 Test Item Value Reference Range Interpretation Comments Glucose (test code = 2345-7) 115 mg/dL 65-99 H BUN (test code = 3094-0) 4 mg/dL 6-24 L Creatinine (test code = 0.63 mg/dL 0.57-1.00 2160-0) eGFR If NonAfricn Am (test 111 mL/min/1.73 >59 code = 79199-8) eGFR If Africn Am (test code 128 mL/min/1.73 >59 = 99646-2) BUN/Creatinine Ratio (test 6 9-23 L code = 3097-3) Sodium (test code = 2951-2) 142 mmol/L 134-144 Potassium (test code = 4.2 mmol/L 3.5-5.2 2823-3) Chloride (test code = 2075-0) 105 mmol/L 96-106 Carbon Dioxide, Total (test 20 mmol/L 20-29 code = 8-9) Calcium (test code = 65029-4) 9.1 mg/dL 8.7-10.2 Protein, Total (test code = 6.9 g/dL 6.0-8.5 2885-2) Albumin (test code = 1751-7) 4.3 g/dL 3.8-4.8 Globulin, Total (test code = 2.6 g/dL 1.5-4.5 96399-9) A/G Ratio (test code = 1.7 1.2-2.2 1759-0) Bilirubin, Total (test code = 0.2 mg/dL 0.0-1.2 1975-2) Alkaline Phosphatase (test 56 IU/L 39-117 code = 6768-6) AST (SGOT) (test code = 27 IU/L 0-40 1920-8) ALT (SGPT) (test code = 13 IU/L 0-32 1742-6) [facility] Description: CBC With Differential/Ropbfmqh9873-12-45 02:16:00 Test Item Value Reference Range Interpretation Comments WBC (test code = 6690-2) 5.3 x10E3/uL 3.4-10.8 RBC (test code = 789-8) 3.86 x10E6/uL 3.77-5.28 Hemoglobin (test code = 718-7) 10.2 g/dL 11.1-15.9 L Hematocrit (test code = 4544-3) 33.0 % 34.0-46.6 L MCV (test code = 787-2) 86 fL 79-97 MCH (test code = 785-6) 26.4 pg 26.6-33.0 L MCHC (test code = 786-4) 30.9 g/dL 31.5-35.7 L RDW (test code = 788-0) 16.4 % 12.3-15.4 H Platelets (test code = 777-3) 401 x10E3/uL 150-450 Neutrophils (test code = 770-8) 59 % Not Estab. Lymphs (test code = 736-9) 30 % Not Estab. Monocytes (test code = 5905-5) 5 % Not Estab. Eos (test code = 713-8) 4 % Not Estab. Basos (test code = 706-2) 2 % Not Estab. Neutrophils (Absolute) (test 3.1 x10E3/uL 1.4-7.0 code = 751-8) Lymphs (Absolute) (test code = 1.6 x10E3/uL 0.7-3.1 731-0) Monocytes(Absolute) (test code 0.2 x10E3/uL 0.1-0.9 = 742-7) Eos (Absolute) (test code = 0.2 x10E3/uL 0.0-0.4 711-2) Baso (Absolute) (test code = 0.1 x10E3/uL 0.0-0.2 704-7) Immature Granulocytes (test 0 % Not Estab. code = 71709-8) Immature Grans (Abs) (test code 0.0 x10E3/uL 0.0-0.1 = 10742-0) NRBC (test code = 93247-2) Hematology Comments: (test code = 97713-7) [facility] Description: CBC With Differential/[id number] 02:16:00 Test Item Value Reference Range Interpretation Comments WBC (test code = 6690-2) 5.3 x10E3/uL 3.4-10.8 RBC (test code = 789-8) 3.86 x10E6/uL 3.77-5.28 Hemoglobin (test code = 718-7) 10.2 g/dL 11.1-15.9 L Hematocrit (test code = 4544-3) 33.0 % 34.0-46.6 L MCV (test code = 787-2) 86 fL 79-97 MCH (test code = 785-6) 26.4 pg 26.6-33.0 L MCHC (test code = 786-4) 30.9 g/dL 31.5-35.7 L RDW (test code = 788-0) 16.4 % 12.3-15.4 H Platelets (test code = 777-3) 401 x10E3/uL 150-450 Neutrophils (test code = 770-8) 59 % Not Estab. Lymphs (test code = 736-9) 30 % Not Estab. Monocytes (test code = 5905-5) 5 % Not Estab. Eos (test code = 713-8) 4 % Not Estab. Basos (test code = 706-2) 2 % Not Estab. Neutrophils (Absolute) (test 3.1 x10E3/uL 1.4-7.0 code = 751-8) Lymphs (Absolute) (test code = 1.6 x10E3/uL 0.7-3.1 731-0) Monocytes(Absolute) (test code 0.2 x10E3/uL 0.1-0.9 = 742-7) Eos (Absolute) (test code = 0.2 x10E3/uL 0.0-0.4 711-2) Baso (Absolute) (test code = 0.1 x10E3/uL 0.0-0.2 704-7) Immature Granulocytes (test 0 % Not Estab. code = 44293-9) Immature Grans (Abs) (test code 0.0 x10E3/uL 0.0-0.1 = 72123-2) NRBC (test code = 75106-5) Hematology Comments: (test code = 95449-6) [facility] Description: CBC With Differential/[id number] 02:16:00 Test Item Value Reference Range Interpretation Comments WBC (test code = 6690-2) 5.3 x10E3/uL 3.4-10.8 RBC (test code = 789-8) 3.86 x10E6/uL 3.77-5.28 Hemoglobin (test code = 718-7) 10.2 g/dL 11.1-15.9 L Hematocrit (test code = 4544-3) 33.0 % 34.0-46.6 L MCV (test code = 787-2) 86 fL 79-97 MCH (test code = 785-6) 26.4 pg 26.6-33.0 L MCHC (test code = 786-4) 30.9 g/dL 31.5-35.7 L RDW (test code = 788-0) 16.4 % 12.3-15.4 H Platelets (test code = 777-3) 401 x10E3/uL 150-450 Neutrophils (test code = 770-8) 59 % Not Estab. Lymphs (test code = 736-9) 30 % Not Estab. Monocytes (test code = 5905-5) 5 % Not Estab. Eos (test code = 713-8) 4 % Not Estab. Basos (test code = 706-2) 2 % Not Estab. Neutrophils (Absolute) (test 3.1 x10E3/uL 1.4-7.0 code = 751-8) Lymphs (Absolute) (test code = 1.6 x10E3/uL 0.7-3.1 731-0) Monocytes(Absolute) (test code 0.2 x10E3/uL 0.1-0.9 = 742-7) Eos (Absolute) (test code = 0.2 x10E3/uL 0.0-0.4 711-2) Baso (Absolute) (test code = 0.1 x10E3/uL 0.0-0.2 704-7) Immature Granulocytes (test 0 % Not Estab. code = 23844-6) Immature Grans (Abs) (test code 0.0 x10E3/uL 0.0-0.1 = 29427-5) NRBC (test code = 68917-7) Hematology Comments: (test code = 21320-4) [facility] Description: CBC With Differential/[id number] 02:16:00 Test Item Value Reference Range Interpretation Comments WBC (test code = 6690-2) 5.3 x10E3/uL 3.4-10.8 RBC (test code = 789-8) 3.86 x10E6/uL 3.77-5.28 Hemoglobin (test code = 718-7) 10.2 g/dL 11.1-15.9 L Hematocrit (test code = 4544-3) 33.0 % 34.0-46.6 L MCV (test code = 787-2) 86 fL 79-97 MCH (test code = 785-6) 26.4 pg 26.6-33.0 L MCHC (test code = 786-4) 30.9 g/dL 31.5-35.7 L RDW (test code = 788-0) 16.4 % 12.3-15.4 H Platelets (test code = 777-3) 401 x10E3/uL 150-450 Neutrophils (test code = 770-8) 59 % Not Estab. Lymphs (test code = 736-9) 30 % Not Estab. Monocytes (test code = 5905-5) 5 % Not Estab. Eos (test code = 713-8) 4 % Not Estab. Basos (test code = 706-2) 2 % Not Estab. Neutrophils (Absolute) (test 3.1 x10E3/uL 1.4-7.0 code = 751-8) Lymphs (Absolute) (test code = 1.6 x10E3/uL 0.7-3.1 731-0) Monocytes(Absolute) (test code 0.2 x10E3/uL 0.1-0.9 = 742-7) Eos (Absolute) (test code = 0.2 x10E3/uL 0.0-0.4 711-2) Baso (Absolute) (test code = 0.1 x10E3/uL 0.0-0.2 704-7) Immature Granulocytes (test 0 % Not Estab. code = 59362-4) Immature Grans (Abs) (test code 0.0 x10E3/uL 0.0-0.1 = 12271-7) NRBC (test code = 45951-7) Hematology Comments: (test code = 34751-6) [facility] Description: CBC With Differential/[id number] 02:16:00 Test Item Value Reference Range Interpretation Comments WBC (test code = 6690-2) 5.3 x10E3/uL 3.4-10.8 RBC (test code = 789-8) 3.86 x10E6/uL 3.77-5.28 Hemoglobin (test code = 718-7) 10.2 g/dL 11.1-15.9 L Hematocrit (test code = 4544-3) 33.0 % 34.0-46.6 L MCV (test code = 787-2) 86 fL 79-97 MCH (test code = 785-6) 26.4 pg 26.6-33.0 L MCHC (test code = 786-4) 30.9 g/dL 31.5-35.7 L RDW (test code = 788-0) 16.4 % 12.3-15.4 H Platelets (test code = 777-3) 401 x10E3/uL 150-450 Neutrophils (test code = 770-8) 59 % Not Estab. Lymphs (test code = 736-9) 30 % Not Estab. Monocytes (test code = 5905-5) 5 % Not Estab. Eos (test code = 713-8) 4 % Not Estab. Basos (test code = 706-2) 2 % Not Estab. Neutrophils (Absolute) (test 3.1 x10E3/uL 1.4-7.0 code = 751-8) Lymphs (Absolute) (test code = 1.6 x10E3/uL 0.7-3.1 731-0) Monocytes(Absolute) (test code 0.2 x10E3/uL 0.1-0.9 = 742-7) Eos (Absolute) (test code = 0.2 x10E3/uL 0.0-0.4 711-2) Baso (Absolute) (test code = 0.1 x10E3/uL 0.0-0.2 704-7) Immature Granulocytes (test 0 % Not Estab. code = 21193-7) Immature Grans (Abs) (test code 0.0 x10E3/uL 0.0-0.1 = 73283-7) NRBC (test code = 91916-1) Hematology Comments: (test code = 11907-0) [facility] Description: CBC With Differential/Qxdenmwx7637-32-27 02:16:00 Test Item Value Reference Range Interpretation Comments WBC (test code = 6690-2) 5.3 x10E3/uL 3.4-10.8 RBC (test code = 789-8) 3.86 x10E6/uL 3.77-5.28 Hemoglobin (test code = 718-7) 10.2 g/dL 11.1-15.9 L Hematocrit (test code = 4544-3) 33.0 % 34.0-46.6 L MCV (test code = 787-2) 86 fL 79-97 MCH (test code = 785-6) 26.4 pg 26.6-33.0 L MCHC (test code = 786-4) 30.9 g/dL 31.5-35.7 L RDW (test code = 788-0) 16.4 % 12.3-15.4 H Platelets (test code = 777-3) 401 x10E3/uL 150-450 Neutrophils (test code = 770-8) 59 % Not Estab. Lymphs (test code = 736-9) 30 % Not Estab. Monocytes (test code = 5905-5) 5 % Not Estab. Eos (test code = 713-8) 4 % Not Estab. Basos (test code = 706-2) 2 % Not Estab. Neutrophils (Absolute) (test 3.1 x10E3/uL 1.4-7.0 code = 751-8) Lymphs (Absolute) (test code = 1.6 x10E3/uL 0.7-3.1 731-0) Monocytes(Absolute) (test code 0.2 x10E3/uL 0.1-0.9 = 742-7) Eos (Absolute) (test code = 0.2 x10E3/uL 0.0-0.4 711-2) Baso (Absolute) (test code = 0.1 x10E3/uL 0.0-0.2 704-7) Immature Granulocytes (test 0 % Not Estab. code = 01408-4) Immature Grans (Abs) (test code 0.0 x10E3/uL 0.0-0.1 = 76699-5) NRBC (test code = 35718-1) Hematology Comments: (test code = 87836-5) [facility] Description: CBC With Differential/[id number] 02:16:00 Test Item Value Reference Range Interpretation Comments WBC (test code = 6690-2) 5.3 x10E3/uL 3.4-10.8 RBC (test code = 789-8) 3.86 x10E6/uL 3.77-5.28 Hemoglobin (test code = 718-7) 10.2 g/dL 11.1-15.9 L Hematocrit (test code = 4544-3) 33.0 % 34.0-46.6 L MCV (test code = 787-2) 86 fL 79-97 MCH (test code = 785-6) 26.4 pg 26.6-33.0 L MCHC (test code = 786-4) 30.9 g/dL 31.5-35.7 L RDW (test code = 788-0) 16.4 % 12.3-15.4 H Platelets (test code = 777-3) 401 x10E3/uL 150-450 Neutrophils (test code = 770-8) 59 % Not Estab. Lymphs (test code = 736-9) 30 % Not Estab. Monocytes (test code = 5905-5) 5 % Not Estab. Eos (test code = 713-8) 4 % Not Estab. Basos (test code = 706-2) 2 % Not Estab. Neutrophils (Absolute) (test 3.1 x10E3/uL 1.4-7.0 code = 751-8) Lymphs (Absolute) (test code = 1.6 x10E3/uL 0.7-3.1 731-0) Monocytes(Absolute) (test code 0.2 x10E3/uL 0.1-0.9 = 742-7) Eos (Absolute) (test code = 0.2 x10E3/uL 0.0-0.4 711-2) Baso (Absolute) (test code = 0.1 x10E3/uL 0.0-0.2 704-7) Immature Granulocytes (test 0 % Not Estab. code = 79541-7) Immature Grans (Abs) (test code 0.0 x10E3/uL 0.0-0.1 = 01230-4) NRBC (test code = 64992-4) Hematology Comments: (test code = 44777-1) [facility] Description: CBC With Differential/Igihajcm3428-25-11 02:16:00 Test Item Value Reference Range Interpretation Comments WBC (test code = 6690-2) 5.3 x10E3/uL 3.4-10.8 RBC (test code = 789-8) 3.86 x10E6/uL 3.77-5.28 Hemoglobin (test code = 718-7) 10.2 g/dL 11.1-15.9 L Hematocrit (test code = 4544-3) 33.0 % 34.0-46.6 L MCV (test code = 787-2) 86 fL 79-97 MCH (test code = 785-6) 26.4 pg 26.6-33.0 L MCHC (test code = 786-4) 30.9 g/dL 31.5-35.7 L RDW (test code = 788-0) 16.4 % 12.3-15.4 H Platelets (test code = 777-3) 401 x10E3/uL 150-450 Neutrophils (test code = 770-8) 59 % Not Estab. Lymphs (test code = 736-9) 30 % Not Estab. Monocytes (test code = 5905-5) 5 % Not Estab. Eos (test code = 713-8) 4 % Not Estab. Basos (test code = 706-2) 2 % Not Estab. Neutrophils (Absolute) (test 3.1 x10E3/uL 1.4-7.0 code = 751-8) Lymphs (Absolute) (test code = 1.6 x10E3/uL 0.7-3.1 731-0) Monocytes(Absolute) (test code 0.2 x10E3/uL 0.1-0.9 = 742-7) Eos (Absolute) (test code = 0.2 x10E3/uL 0.0-0.4 711-2) Baso (Absolute) (test code = 0.1 x10E3/uL 0.0-0.2 704-7) Immature Granulocytes (test 0 % Not Estab. code = 44936-9) Immature Grans (Abs) (test code 0.0 x10E3/uL 0.0-0.1 = 93210-3) NRBC (test code = 82646-3) Hematology Comments: (test code = 35755-0) [facility] Description: CBC With Differential/Rianvgeb6065-17-54 02:16:00 Test Item Value Reference Range Interpretation Comments WBC (test code = 6690-2) 5.3 x10E3/uL 3.4-10.8 RBC (test code = 789-8) 3.86 x10E6/uL 3.77-5.28 Hemoglobin (test code = 718-7) 10.2 g/dL 11.1-15.9 L Hematocrit (test code = 4544-3) 33.0 % 34.0-46.6 L MCV (test code = 787-2) 86 fL 79-97 MCH (test code = 785-6) 26.4 pg 26.6-33.0 L MCHC (test code = 786-4) 30.9 g/dL 31.5-35.7 L RDW (test code = 788-0) 16.4 % 12.3-15.4 H Platelets (test code = 777-3) 401 x10E3/uL 150-450 Neutrophils (test code = 770-8) 59 % Not Estab. Lymphs (test code = 736-9) 30 % Not Estab. Monocytes (test code = 5905-5) 5 % Not Estab. Eos (test code = 713-8) 4 % Not Estab. Basos (test code = 706-2) 2 % Not Estab. Neutrophils (Absolute) (test 3.1 x10E3/uL 1.4-7.0 code = 751-8) Lymphs (Absolute) (test code = 1.6 x10E3/uL 0.7-3.1 731-0) Monocytes(Absolute) (test code 0.2 x10E3/uL 0.1-0.9 = 742-7) Eos (Absolute) (test code = 0.2 x10E3/uL 0.0-0.4 711-2) Baso (Absolute) (test code = 0.1 x10E3/uL 0.0-0.2 704-7) Immature Granulocytes (test 0 % Not Estab. code = 06919-7) Immature Grans (Abs) (test code 0.0 x10E3/uL 0.0-0.1 = 87500-2) NRBC (test code = 28126-8) Hematology Comments: (test code = 52101-3) [facility] Description: CBC With Differential/Okhaivoe9919-65-81 02:16:00 Test Item Value Reference Range Interpretation Comments WBC (test code = 6690-2) 5.3 x10E3/uL 3.4-10.8 RBC (test code = 789-8) 3.86 x10E6/uL 3.77-5.28 Hemoglobin (test code = 718-7) 10.2 g/dL 11.1-15.9 L Hematocrit (test code = 4544-3) 33.0 % 34.0-46.6 L MCV (test code = 787-2) 86 fL 79-97 MCH (test code = 785-6) 26.4 pg 26.6-33.0 L MCHC (test code = 786-4) 30.9 g/dL 31.5-35.7 L RDW (test code = 788-0) 16.4 % 12.3-15.4 H Platelets (test code = 777-3) 401 x10E3/uL 150-450 Neutrophils (test code = 770-8) 59 % Not Estab. Lymphs (test code = 736-9) 30 % Not Estab. Monocytes (test code = 5905-5) 5 % Not Estab. Eos (test code = 713-8) 4 % Not Estab. Basos (test code = 706-2) 2 % Not Estab. Neutrophils (Absolute) (test 3.1 x10E3/uL 1.4-7.0 code = 751-8) Lymphs (Absolute) (test code = 1.6 x10E3/uL 0.7-3.1 731-0) Monocytes(Absolute) (test code 0.2 x10E3/uL 0.1-0.9 = 742-7) Eos (Absolute) (test code = 0.2 x10E3/uL 0.0-0.4 711-2) Baso (Absolute) (test code = 0.1 x10E3/uL 0.0-0.2 704-7) Immature Granulocytes (test 0 % Not Estab. code = 28522-9) Immature Grans (Abs) (test code 0.0 x10E3/uL 0.0-0.1 = 73753-6) NRBC (test code = 83087-4) Hematology Comments: (test code = 70607-3) [facility] Description: CBC With Differential/Ygfvtusb7046-03-52 02:16:00 Test Item Value Reference Range Interpretation Comments WBC (test code = 6690-2) 5.3 x10E3/uL 3.4-10.8 RBC (test code = 789-8) 3.86 x10E6/uL 3.77-5.28 Hemoglobin (test code = 718-7) 10.2 g/dL 11.1-15.9 L Hematocrit (test code = 4544-3) 33.0 % 34.0-46.6 L MCV (test code = 787-2) 86 fL 79-97 MCH (test code = 785-6) 26.4 pg 26.6-33.0 L MCHC (test code = 786-4) 30.9 g/dL 31.5-35.7 L RDW (test code = 788-0) 16.4 % 12.3-15.4 H Platelets (test code = 777-3) 401 x10E3/uL 150-450 Neutrophils (test code = 770-8) 59 % Not Estab. Lymphs (test code = 736-9) 30 % Not Estab. Monocytes (test code = 5905-5) 5 % Not Estab. Eos (test code = 713-8) 4 % Not Estab. Basos (test code = 706-2) 2 % Not Estab. Neutrophils (Absolute) (test 3.1 x10E3/uL 1.4-7.0 code = 751-8) Lymphs (Absolute) (test code = 1.6 x10E3/uL 0.7-3.1 731-0) Monocytes(Absolute) (test code 0.2 x10E3/uL 0.1-0.9 = 742-7) Eos (Absolute) (test code = 0.2 x10E3/uL 0.0-0.4 711-2) Baso (Absolute) (test code = 0.1 x10E3/uL 0.0-0.2 704-7) Immature Granulocytes (test 0 % Not Estab. code = 18852-8) Immature Grans (Abs) (test code 0.0 x10E3/uL 0.0-0.1 = 74090-4) NRBC (test code = 87461-1) Hematology Comments: (test code = 09394-7) [facility] Description: CBC With Differential/[id number] 02:16:00 Test Item Value Reference Range Interpretation Comments WBC (test code = 6690-2) 5.3 x10E3/uL 3.4-10.8 RBC (test code = 789-8) 3.86 x10E6/uL 3.77-5.28 Hemoglobin (test code = 718-7) 10.2 g/dL 11.1-15.9 L Hematocrit (test code = 4544-3) 33.0 % 34.0-46.6 L MCV (test code = 787-2) 86 fL 79-97 MCH (test code = 785-6) 26.4 pg 26.6-33.0 L MCHC (test code = 786-4) 30.9 g/dL 31.5-35.7 L RDW (test code = 788-0) 16.4 % 12.3-15.4 H Platelets (test code = 777-3) 401 x10E3/uL 150-450 Neutrophils (test code = 770-8) 59 % Not Estab. Lymphs (test code = 736-9) 30 % Not Estab. Monocytes (test code = 5905-5) 5 % Not Estab. Eos (test code = 713-8) 4 % Not Estab. Basos (test code = 706-2) 2 % Not Estab. Neutrophils (Absolute) (test 3.1 x10E3/uL 1.4-7.0 code = 751-8) Lymphs (Absolute) (test code = 1.6 x10E3/uL 0.7-3.1 731-0) Monocytes(Absolute) (test code 0.2 x10E3/uL 0.1-0.9 = 742-7) Eos (Absolute) (test code = 0.2 x10E3/uL 0.0-0.4 711-2) Baso (Absolute) (test code = 0.1 x10E3/uL 0.0-0.2 704-7) Immature Granulocytes (test 0 % Not Estab. code = 24991-1) Immature Grans (Abs) (test code 0.0 x10E3/uL 0.0-0.1 = 95168-1) NRBC (test code = 40096-7) Hematology Comments: (test code = 36978-3) [facility] Description: CBC With Differential/[id number] 02:16:00 Test Item Value Reference Range Interpretation Comments WBC (test code = 6690-2) 5.3 x10E3/uL 3.4-10.8 RBC (test code = 789-8) 3.86 x10E6/uL 3.77-5.28 Hemoglobin (test code = 718-7) 10.2 g/dL 11.1-15.9 L Hematocrit (test code = 4544-3) 33.0 % 34.0-46.6 L MCV (test code = 787-2) 86 fL 79-97 MCH (test code = 785-6) 26.4 pg 26.6-33.0 L MCHC (test code = 786-4) 30.9 g/dL 31.5-35.7 L RDW (test code = 788-0) 16.4 % 12.3-15.4 H Platelets (test code = 777-3) 401 x10E3/uL 150-450 Neutrophils (test code = 770-8) 59 % Not Estab. Lymphs (test code = 736-9) 30 % Not Estab. Monocytes (test code = 5905-5) 5 % Not Estab. Eos (test code = 713-8) 4 % Not Estab. Basos (test code = 706-2) 2 % Not Estab. Neutrophils (Absolute) (test 3.1 x10E3/uL 1.4-7.0 code = 751-8) Lymphs (Absolute) (test code = 1.6 x10E3/uL 0.7-3.1 731-0) Monocytes(Absolute) (test code 0.2 x10E3/uL 0.1-0.9 = 742-7) Eos (Absolute) (test code = 0.2 x10E3/uL 0.0-0.4 711-2) Baso (Absolute) (test code = 0.1 x10E3/uL 0.0-0.2 704-7) Immature Granulocytes (test 0 % Not Estab. code = 69533-3) Immature Grans (Abs) (test code 0.0 x10E3/uL 0.0-0.1 = 01015-8) NRBC (test code = 80430-2) Hematology Comments: (test code = 53337-6) [facility] Description: CBC With Differential/[id number] 02:16:00 Test Item Value Reference Range Interpretation Comments WBC (test code = 6690-2) 5.3 x10E3/uL 3.4-10.8 RBC (test code = 789-8) 3.86 x10E6/uL 3.77-5.28 Hemoglobin (test code = 718-7) 10.2 g/dL 11.1-15.9 L Hematocrit (test code = 4544-3) 33.0 % 34.0-46.6 L MCV (test code = 787-2) 86 fL 79-97 MCH (test code = 785-6) 26.4 pg 26.6-33.0 L MCHC (test code = 786-4) 30.9 g/dL 31.5-35.7 L RDW (test code = 788-0) 16.4 % 12.3-15.4 H Platelets (test code = 777-3) 401 x10E3/uL 150-450 Neutrophils (test code = 770-8) 59 % Not Estab. Lymphs (test code = 736-9) 30 % Not Estab. Monocytes (test code = 5905-5) 5 % Not Estab. Eos (test code = 713-8) 4 % Not Estab. Basos (test code = 706-2) 2 % Not Estab. Neutrophils (Absolute) (test 3.1 x10E3/uL 1.4-7.0 code = 751-8) Lymphs (Absolute) (test code = 1.6 x10E3/uL 0.7-3.1 731-0) Monocytes(Absolute) (test code 0.2 x10E3/uL 0.1-0.9 = 742-7) Eos (Absolute) (test code = 0.2 x10E3/uL 0.0-0.4 711-2) Baso (Absolute) (test code = 0.1 x10E3/uL 0.0-0.2 704-7) Immature Granulocytes (test 0 % Not Estab. code = 99591-3) Immature Grans (Abs) (test code 0.0 x10E3/uL 0.0-0.1 = 45438-1) NRBC (test code = 90363-6) Hematology Comments: (test code = 97212-7) [facility] Description: CBC With Differential/Lfatykrg7494-12-84 02:16:00 Test Item Value Reference Range Interpretation Comments WBC (test code = 6690-2) 5.3 x10E3/uL 3.4-10.8 RBC (test code = 789-8) 3.86 x10E6/uL 3.77-5.28 Hemoglobin (test code = 718-7) 10.2 g/dL 11.1-15.9 L Hematocrit (test code = 4544-3) 33.0 % 34.0-46.6 L MCV (test code = 787-2) 86 fL 79-97 MCH (test code = 785-6) 26.4 pg 26.6-33.0 L MCHC (test code = 786-4) 30.9 g/dL 31.5-35.7 L RDW (test code = 788-0) 16.4 % 12.3-15.4 H Platelets (test code = 777-3) 401 x10E3/uL 150-450 Neutrophils (test code = 770-8) 59 % Not Estab. Lymphs (test code = 736-9) 30 % Not Estab. Monocytes (test code = 5905-5) 5 % Not Estab. Eos (test code = 713-8) 4 % Not Estab. Basos (test code = 706-2) 2 % Not Estab. Neutrophils (Absolute) (test 3.1 x10E3/uL 1.4-7.0 code = 751-8) Lymphs (Absolute) (test code = 1.6 x10E3/uL 0.7-3.1 731-0) Monocytes(Absolute) (test code 0.2 x10E3/uL 0.1-0.9 = 742-7) Eos (Absolute) (test code = 0.2 x10E3/uL 0.0-0.4 711-2) Baso (Absolute) (test code = 0.1 x10E3/uL 0.0-0.2 704-7) Immature Granulocytes (test 0 % Not Estab. code = 36045-7) Immature Grans (Abs) (test code 0.0 x10E3/uL 0.0-0.1 = 59854-5) NRBC (test code = 56820-8) Hematology Comments: (test code = 02147-5) [facility] Description: CBC With Differential/[id number] 02:16:00 Test Item Value Reference Range Interpretation Comments WBC (test code = 6690-2) 5.3 x10E3/uL 3.4-10.8 RBC (test code = 789-8) 3.86 x10E6/uL 3.77-5.28 Hemoglobin (test code = 718-7) 10.2 g/dL 11.1-15.9 L Hematocrit (test code = 4544-3) 33.0 % 34.0-46.6 L MCV (test code = 787-2) 86 fL 79-97 MCH (test code = 785-6) 26.4 pg 26.6-33.0 L MCHC (test code = 786-4) 30.9 g/dL 31.5-35.7 L RDW (test code = 788-0) 16.4 % 12.3-15.4 H Platelets (test code = 777-3) 401 x10E3/uL 150-450 Neutrophils (test code = 770-8) 59 % Not Estab. Lymphs (test code = 736-9) 30 % Not Estab. Monocytes (test code = 5905-5) 5 % Not Estab. Eos (test code = 713-8) 4 % Not Estab. Basos (test code = 706-2) 2 % Not Estab. Neutrophils (Absolute) (test 3.1 x10E3/uL 1.4-7.0 code = 751-8) Lymphs (Absolute) (test code = 1.6 x10E3/uL 0.7-3.1 731-0) Monocytes(Absolute) (test code 0.2 x10E3/uL 0.1-0.9 = 742-7) Eos (Absolute) (test code = 0.2 x10E3/uL 0.0-0.4 711-2) Baso (Absolute) (test code = 0.1 x10E3/uL 0.0-0.2 704-7) Immature Granulocytes (test 0 % Not Estab. code = 34644-0) Immature Grans (Abs) (test code 0.0 x10E3/uL 0.0-0.1 = 84122-0) NRBC (test code = 04172-4) Hematology Comments: (test code = 07185-5) [facility] Description: CBC With Differential/[id number] 02:16:00 Test Item Value Reference Range Interpretation Comments WBC (test code = 6690-2) 5.3 x10E3/uL 3.4-10.8 RBC (test code = 789-8) 3.86 x10E6/uL 3.77-5.28 Hemoglobin (test code = 718-7) 10.2 g/dL 11.1-15.9 L Hematocrit (test code = 4544-3) 33.0 % 34.0-46.6 L MCV (test code = 787-2) 86 fL 79-97 MCH (test code = 785-6) 26.4 pg 26.6-33.0 L MCHC (test code = 786-4) 30.9 g/dL 31.5-35.7 L RDW (test code = 788-0) 16.4 % 12.3-15.4 H Platelets (test code = 777-3) 401 x10E3/uL 150-450 Neutrophils (test code = 770-8) 59 % Not Estab. Lymphs (test code = 736-9) 30 % Not Estab. Monocytes (test code = 5905-5) 5 % Not Estab. Eos (test code = 713-8) 4 % Not Estab. Basos (test code = 706-2) 2 % Not Estab. Neutrophils (Absolute) (test 3.1 x10E3/uL 1.4-7.0 code = 751-8) Lymphs (Absolute) (test code = 1.6 x10E3/uL 0.7-3.1 731-0) Monocytes(Absolute) (test code 0.2 x10E3/uL 0.1-0.9 = 742-7) Eos (Absolute) (test code = 0.2 x10E3/uL 0.0-0.4 711-2) Baso (Absolute) (test code = 0.1 x10E3/uL 0.0-0.2 704-7) Immature Granulocytes (test 0 % Not Estab. code = 38602-8) Immature Grans (Abs) (test code 0.0 x10E3/uL 0.0-0.1 = 10471-9) NRBC (test code = 39563-1) Hematology Comments: (test code = 24894-5) [facility] Description: CBC With Differential/[id number] 02:16:00 Test Item Value Reference Range Interpretation Comments WBC (test code = 6690-2) 5.3 x10E3/uL 3.4-10.8 RBC (test code = 789-8) 3.86 x10E6/uL 3.77-5.28 Hemoglobin (test code = 718-7) 10.2 g/dL 11.1-15.9 L Hematocrit (test code = 4544-3) 33.0 % 34.0-46.6 L MCV (test code = 787-2) 86 fL 79-97 MCH (test code = 785-6) 26.4 pg 26.6-33.0 L MCHC (test code = 786-4) 30.9 g/dL 31.5-35.7 L RDW (test code = 788-0) 16.4 % 12.3-15.4 H Platelets (test code = 777-3) 401 x10E3/uL 150-450 Neutrophils (test code = 770-8) 59 % Not Estab. Lymphs (test code = 736-9) 30 % Not Estab. Monocytes (test code = 5905-5) 5 % Not Estab. Eos (test code = 713-8) 4 % Not Estab. Basos (test code = 706-2) 2 % Not Estab. Neutrophils (Absolute) (test 3.1 x10E3/uL 1.4-7.0 code = 751-8) Lymphs (Absolute) (test code = 1.6 x10E3/uL 0.7-3.1 731-0) Monocytes(Absolute) (test code 0.2 x10E3/uL 0.1-0.9 = 742-7) Eos (Absolute) (test code = 0.2 x10E3/uL 0.0-0.4 711-2) Baso (Absolute) (test code = 0.1 x10E3/uL 0.0-0.2 704-7) Immature Granulocytes (test 0 % Not Estab. code = 66291-4) Immature Grans (Abs) (test code 0.0 x10E3/uL 0.0-0.1 = 51408-0) NRBC (test code = 25014-4) Hematology Comments: (test code = 69934-7) [facility] Description: CBC With Differential/[id number] 02:16:00 Test Item Value Reference Range Interpretation Comments WBC (test code = 6690-2) 5.3 x10E3/uL 3.4-10.8 RBC (test code = 789-8) 3.86 x10E6/uL 3.77-5.28 Hemoglobin (test code = 718-7) 10.2 g/dL 11.1-15.9 L Hematocrit (test code = 4544-3) 33.0 % 34.0-46.6 L MCV (test code = 787-2) 86 fL 79-97 MCH (test code = 785-6) 26.4 pg 26.6-33.0 L MCHC (test code = 786-4) 30.9 g/dL 31.5-35.7 L RDW (test code = 788-0) 16.4 % 12.3-15.4 H Platelets (test code = 777-3) 401 x10E3/uL 150-450 Neutrophils (test code = 770-8) 59 % Not Estab. Lymphs (test code = 736-9) 30 % Not Estab. Monocytes (test code = 5905-5) 5 % Not Estab. Eos (test code = 713-8) 4 % Not Estab. Basos (test code = 706-2) 2 % Not Estab. Neutrophils (Absolute) (test 3.1 x10E3/uL 1.4-7.0 code = 751-8) Lymphs (Absolute) (test code = 1.6 x10E3/uL 0.7-3.1 731-0) Monocytes(Absolute) (test code 0.2 x10E3/uL 0.1-0.9 = 742-7) Eos (Absolute) (test code = 0.2 x10E3/uL 0.0-0.4 711-2) Baso (Absolute) (test code = 0.1 x10E3/uL 0.0-0.2 704-7) Immature Granulocytes (test 0 % Not Estab. code = 39403-2) Immature Grans (Abs) (test code 0.0 x10E3/uL 0.0-0.1 = 92469-5) NRBC (test code = 85982-7) Hematology Comments: (test code = 83149-9) [facility] Description: CBC With Differential/[id number] 02:16:00 Test Item Value Reference Range Interpretation Comments WBC (test code = 6690-2) 5.3 x10E3/uL 3.4-10.8 RBC (test code = 789-8) 3.86 x10E6/uL 3.77-5.28 Hemoglobin (test code = 718-7) 10.2 g/dL 11.1-15.9 L Hematocrit (test code = 4544-3) 33.0 % 34.0-46.6 L MCV (test code = 787-2) 86 fL 79-97 MCH (test code = 785-6) 26.4 pg 26.6-33.0 L MCHC (test code = 786-4) 30.9 g/dL 31.5-35.7 L RDW (test code = 788-0) 16.4 % 12.3-15.4 H Platelets (test code = 777-3) 401 x10E3/uL 150-450 Neutrophils (test code = 770-8) 59 % Not Estab. Lymphs (test code = 736-9) 30 % Not Estab. Monocytes (test code = 5905-5) 5 % Not Estab. Eos (test code = 713-8) 4 % Not Estab. Basos (test code = 706-2) 2 % Not Estab. Neutrophils (Absolute) (test 3.1 x10E3/uL 1.4-7.0 code = 751-8) Lymphs (Absolute) (test code = 1.6 x10E3/uL 0.7-3.1 731-0) Monocytes(Absolute) (test code 0.2 x10E3/uL 0.1-0.9 = 742-7) Eos (Absolute) (test code = 0.2 x10E3/uL 0.0-0.4 711-2) Baso (Absolute) (test code = 0.1 x10E3/uL 0.0-0.2 704-7) Immature Granulocytes (test 0 % Not Estab. code = 28666-0) Immature Grans (Abs) (test code 0.0 x10E3/uL 0.0-0.1 = 48811-1) NRBC (test code = 03419-9) Hematology Comments: (test code = 54023-6) [facility] Description: CBC With Differential/[id number] 02:16:00 Test Item Value Reference Range Interpretation Comments WBC (test code = 6690-2) 5.3 x10E3/uL 3.4-10.8 RBC (test code = 789-8) 3.86 x10E6/uL 3.77-5.28 Hemoglobin (test code = 718-7) 10.2 g/dL 11.1-15.9 L Hematocrit (test code = 4544-3) 33.0 % 34.0-46.6 L MCV (test code = 787-2) 86 fL 79-97 MCH (test code = 785-6) 26.4 pg 26.6-33.0 L MCHC (test code = 786-4) 30.9 g/dL 31.5-35.7 L RDW (test code = 788-0) 16.4 % 12.3-15.4 H Platelets (test code = 777-3) 401 x10E3/uL 150-450 Neutrophils (test code = 770-8) 59 % Not Estab. Lymphs (test code = 736-9) 30 % Not Estab. Monocytes (test code = 5905-5) 5 % Not Estab. Eos (test code = 713-8) 4 % Not Estab. Basos (test code = 706-2) 2 % Not Estab. Neutrophils (Absolute) (test 3.1 x10E3/uL 1.4-7.0 code = 751-8) Lymphs (Absolute) (test code = 1.6 x10E3/uL 0.7-3.1 731-0) Monocytes(Absolute) (test code 0.2 x10E3/uL 0.1-0.9 = 742-7) Eos (Absolute) (test code = 0.2 x10E3/uL 0.0-0.4 711-2) Baso (Absolute) (test code = 0.1 x10E3/uL 0.0-0.2 704-7) Immature Granulocytes (test 0 % Not Estab. code = 16578-4) Immature Grans (Abs) (test code 0.0 x10E3/uL 0.0-0.1 = 17770-0) NRBC (test code = 39185-2) Hematology Comments: (test code = 56541-1) [facility] Description: CBC With Differential/[id number] 02:16:00 Test Item Value Reference Range Interpretation Comments WBC (test code = 6690-2) 5.3 x10E3/uL 3.4-10.8 RBC (test code = 789-8) 3.86 x10E6/uL 3.77-5.28 Hemoglobin (test code = 718-7) 10.2 g/dL 11.1-15.9 L Hematocrit (test code = 4544-3) 33.0 % 34.0-46.6 L MCV (test code = 787-2) 86 fL 79-97 MCH (test code = 785-6) 26.4 pg 26.6-33.0 L MCHC (test code = 786-4) 30.9 g/dL 31.5-35.7 L RDW (test code = 788-0) 16.4 % 12.3-15.4 H Platelets (test code = 777-3) 401 x10E3/uL 150-450 Neutrophils (test code = 770-8) 59 % Not Estab. Lymphs (test code = 736-9) 30 % Not Estab. Monocytes (test code = 5905-5) 5 % Not Estab. Eos (test code = 713-8) 4 % Not Estab. Basos (test code = 706-2) 2 % Not Estab. Neutrophils (Absolute) (test 3.1 x10E3/uL 1.4-7.0 code = 751-8) Lymphs (Absolute) (test code = 1.6 x10E3/uL 0.7-3.1 731-0) Monocytes(Absolute) (test code 0.2 x10E3/uL 0.1-0.9 = 742-7) Eos (Absolute) (test code = 0.2 x10E3/uL 0.0-0.4 711-2) Baso (Absolute) (test code = 0.1 x10E3/uL 0.0-0.2 704-7) Immature Granulocytes (test 0 % Not Estab. code = 00558-6) Immature Grans (Abs) (test code 0.0 x10E3/uL 0.0-0.1 = 76175-1) NRBC (test code = 45260-5) Hematology Comments: (test code = 44555-2) [facility] Description: CBC With Differential/[id number] 02:16:00 Test Item Value Reference Range Interpretation Comments WBC (test code = 6690-2) 5.3 x10E3/uL 3.4-10.8 RBC (test code = 789-8) 3.86 x10E6/uL 3.77-5.28 Hemoglobin (test code = 718-7) 10.2 g/dL 11.1-15.9 L Hematocrit (test code = 4544-3) 33.0 % 34.0-46.6 L MCV (test code = 787-2) 86 fL 79-97 MCH (test code = 785-6) 26.4 pg 26.6-33.0 L MCHC (test code = 786-4) 30.9 g/dL 31.5-35.7 L RDW (test code = 788-0) 16.4 % 12.3-15.4 H Platelets (test code = 777-3) 401 x10E3/uL 150-450 Neutrophils (test code = 770-8) 59 % Not Estab. Lymphs (test code = 736-9) 30 % Not Estab. Monocytes (test code = 5905-5) 5 % Not Estab. Eos (test code = 713-8) 4 % Not Estab. Basos (test code = 706-2) 2 % Not Estab. Neutrophils (Absolute) (test 3.1 x10E3/uL 1.4-7.0 code = 751-8) Lymphs (Absolute) (test code = 1.6 x10E3/uL 0.7-3.1 731-0) Monocytes(Absolute) (test code 0.2 x10E3/uL 0.1-0.9 = 742-7) Eos (Absolute) (test code = 0.2 x10E3/uL 0.0-0.4 711-2) Baso (Absolute) (test code = 0.1 x10E3/uL 0.0-0.2 704-7) Immature Granulocytes (test 0 % Not Estab. code = 05509-5) Immature Grans (Abs) (test code 0.0 x10E3/uL 0.0-0.1 = 32382-9) NRBC (test code = 94798-3) Hematology Comments: (test code = 31906-3) [facility] Description: CBC With Differential/[id number] 02:16:00 Test Item Value Reference Range Interpretation Comments WBC (test code = 6690-2) 5.3 x10E3/uL 3.4-10.8 RBC (test code = 789-8) 3.86 x10E6/uL 3.77-5.28 Hemoglobin (test code = 718-7) 10.2 g/dL 11.1-15.9 L Hematocrit (test code = 4544-3) 33.0 % 34.0-46.6 L MCV (test code = 787-2) 86 fL 79-97 MCH (test code = 785-6) 26.4 pg 26.6-33.0 L MCHC (test code = 786-4) 30.9 g/dL 31.5-35.7 L RDW (test code = 788-0) 16.4 % 12.3-15.4 H Platelets (test code = 777-3) 401 x10E3/uL 150-450 Neutrophils (test code = 770-8) 59 % Not Estab. Lymphs (test code = 736-9) 30 % Not Estab. Monocytes (test code = 5905-5) 5 % Not Estab. Eos (test code = 713-8) 4 % Not Estab. Basos (test code = 706-2) 2 % Not Estab. Neutrophils (Absolute) (test 3.1 x10E3/uL 1.4-7.0 code = 751-8) Lymphs (Absolute) (test code = 1.6 x10E3/uL 0.7-3.1 731-0) Monocytes(Absolute) (test code 0.2 x10E3/uL 0.1-0.9 = 742-7) Eos (Absolute) (test code = 0.2 x10E3/uL 0.0-0.4 711-2) Baso (Absolute) (test code = 0.1 x10E3/uL 0.0-0.2 704-7) Immature Granulocytes (test 0 % Not Estab. code = 05149-4) Immature Grans (Abs) (test code 0.0 x10E3/uL 0.0-0.1 = 57722-2) NRBC (test code = 08129-9) Hematology Comments: (test code = 10926-7) [facility] Description: CBC With Differential/[id number] 02:16:00 Test Item Value Reference Range Interpretation Comments WBC (test code = 6690-2) 5.3 x10E3/uL 3.4-10.8 RBC (test code = 789-8) 3.86 x10E6/uL 3.77-5.28 Hemoglobin (test code = 718-7) 10.2 g/dL 11.1-15.9 L Hematocrit (test code = 4544-3) 33.0 % 34.0-46.6 L MCV (test code = 787-2) 86 fL 79-97 MCH (test code = 785-6) 26.4 pg 26.6-33.0 L MCHC (test code = 786-4) 30.9 g/dL 31.5-35.7 L RDW (test code = 788-0) 16.4 % 12.3-15.4 H Platelets (test code = 777-3) 401 x10E3/uL 150-450 Neutrophils (test code = 770-8) 59 % Not Estab. Lymphs (test code = 736-9) 30 % Not Estab. Monocytes (test code = 5905-5) 5 % Not Estab. Eos (test code = 713-8) 4 % Not Estab. Basos (test code = 706-2) 2 % Not Estab. Neutrophils (Absolute) (test 3.1 x10E3/uL 1.4-7.0 code = 751-8) Lymphs (Absolute) (test code = 1.6 x10E3/uL 0.7-3.1 731-0) Monocytes(Absolute) (test code 0.2 x10E3/uL 0.1-0.9 = 742-7) Eos (Absolute) (test code = 0.2 x10E3/uL 0.0-0.4 711-2) Baso (Absolute) (test code = 0.1 x10E3/uL 0.0-0.2 704-7) Immature Granulocytes (test 0 % Not Estab. code = 49263-4) Immature Grans (Abs) (test code 0.0 x10E3/uL 0.0-0.1 = 18590-9) NRBC (test code = 95648-1) Hematology Comments: (test code = 66701-0) [facility] Description: CBC With Differential/Cnxrlhql1561-05-00 02:16:00 Test Item Value Reference Range Interpretation Comments WBC (test code = 6690-2) 5.3 x10E3/uL 3.4-10.8 RBC (test code = 789-8) 3.86 x10E6/uL 3.77-5.28 Hemoglobin (test code = 718-7) 10.2 g/dL 11.1-15.9 L Hematocrit (test code = 4544-3) 33.0 % 34.0-46.6 L MCV (test code = 787-2) 86 fL 79-97 MCH (test code = 785-6) 26.4 pg 26.6-33.0 L MCHC (test code = 786-4) 30.9 g/dL 31.5-35.7 L RDW (test code = 788-0) 16.4 % 12.3-15.4 H Platelets (test code = 777-3) 401 x10E3/uL 150-450 Neutrophils (test code = 770-8) 59 % Not Estab. Lymphs (test code = 736-9) 30 % Not Estab. Monocytes (test code = 5905-5) 5 % Not Estab. Eos (test code = 713-8) 4 % Not Estab. Basos (test code = 706-2) 2 % Not Estab. Neutrophils (Absolute) (test 3.1 x10E3/uL 1.4-7.0 code = 751-8) Lymphs (Absolute) (test code = 1.6 x10E3/uL 0.7-3.1 731-0) Monocytes(Absolute) (test code 0.2 x10E3/uL 0.1-0.9 = 742-7) Eos (Absolute) (test code = 0.2 x10E3/uL 0.0-0.4 711-2) Baso (Absolute) (test code = 0.1 x10E3/uL 0.0-0.2 704-7) Immature Granulocytes (test 0 % Not Estab. code = 32292-2) Immature Grans (Abs) (test code 0.0 x10E3/uL 0.0-0.1 = 10493-6) NRBC (test code = 09091-0) Hematology Comments: (test code = 79704-0) [facility] Description: CBC With Differential/[id number] 02:16:00 Test Item Value Reference Range Interpretation Comments WBC (test code = 6690-2) 5.3 x10E3/uL 3.4-10.8 RBC (test code = 789-8) 3.86 x10E6/uL 3.77-5.28 Hemoglobin (test code = 718-7) 10.2 g/dL 11.1-15.9 L Hematocrit (test code = 4544-3) 33.0 % 34.0-46.6 L MCV (test code = 787-2) 86 fL 79-97 MCH (test code = 785-6) 26.4 pg 26.6-33.0 L MCHC (test code = 786-4) 30.9 g/dL 31.5-35.7 L RDW (test code = 788-0) 16.4 % 12.3-15.4 H Platelets (test code = 777-3) 401 x10E3/uL 150-450 Neutrophils (test code = 770-8) 59 % Not Estab. Lymphs (test code = 736-9) 30 % Not Estab. Monocytes (test code = 5905-5) 5 % Not Estab. Eos (test code = 713-8) 4 % Not Estab. Basos (test code = 706-2) 2 % Not Estab. Neutrophils (Absolute) (test 3.1 x10E3/uL 1.4-7.0 code = 751-8) Lymphs (Absolute) (test code = 1.6 x10E3/uL 0.7-3.1 731-0) Monocytes(Absolute) (test code 0.2 x10E3/uL 0.1-0.9 = 742-7) Eos (Absolute) (test code = 0.2 x10E3/uL 0.0-0.4 711-2) Baso (Absolute) (test code = 0.1 x10E3/uL 0.0-0.2 704-7) Immature Granulocytes (test 0 % Not Estab. code = 75412-4) Immature Grans (Abs) (test code 0.0 x10E3/uL 0.0-0.1 = 58483-4) NRBC (test code = 95932-7) Hematology Comments: (test code = 44363-2) [facility] Description: CBC With Differential/[id number] 02:16:00 Test Item Value Reference Range Interpretation Comments WBC (test code = 6690-2) 5.3 x10E3/uL 3.4-10.8 RBC (test code = 789-8) 3.86 x10E6/uL 3.77-5.28 Hemoglobin (test code = 718-7) 10.2 g/dL 11.1-15.9 L Hematocrit (test code = 4544-3) 33.0 % 34.0-46.6 L MCV (test code = 787-2) 86 fL 79-97 MCH (test code = 785-6) 26.4 pg 26.6-33.0 L MCHC (test code = 786-4) 30.9 g/dL 31.5-35.7 L RDW (test code = 788-0) 16.4 % 12.3-15.4 H Platelets (test code = 777-3) 401 x10E3/uL 150-450 Neutrophils (test code = 770-8) 59 % Not Estab. Lymphs (test code = 736-9) 30 % Not Estab. Monocytes (test code = 5905-5) 5 % Not Estab. Eos (test code = 713-8) 4 % Not Estab. Basos (test code = 706-2) 2 % Not Estab. Neutrophils (Absolute) (test 3.1 x10E3/uL 1.4-7.0 code = 751-8) Lymphs (Absolute) (test code = 1.6 x10E3/uL 0.7-3.1 731-0) Monocytes(Absolute) (test code 0.2 x10E3/uL 0.1-0.9 = 742-7) Eos (Absolute) (test code = 0.2 x10E3/uL 0.0-0.4 711-2) Baso (Absolute) (test code = 0.1 x10E3/uL 0.0-0.2 704-7) Immature Granulocytes (test 0 % Not Estab. code = 55339-2) Immature Grans (Abs) (test code 0.0 x10E3/uL 0.0-0.1 = 67167-3) NRBC (test code = 20210-5) Hematology Comments: (test code = 36511-8) [facility] Description: CBC With Differential/[id number] 02:16:00 Test Item Value Reference Range Interpretation Comments WBC (test code = 6690-2) 5.3 x10E3/uL 3.4-10.8 RBC (test code = 789-8) 3.86 x10E6/uL 3.77-5.28 Hemoglobin (test code = 718-7) 10.2 g/dL 11.1-15.9 L Hematocrit (test code = 4544-3) 33.0 % 34.0-46.6 L MCV (test code = 787-2) 86 fL 79-97 MCH (test code = 785-6) 26.4 pg 26.6-33.0 L MCHC (test code = 786-4) 30.9 g/dL 31.5-35.7 L RDW (test code = 788-0) 16.4 % 12.3-15.4 H Platelets (test code = 777-3) 401 x10E3/uL 150-450 Neutrophils (test code = 770-8) 59 % Not Estab. Lymphs (test code = 736-9) 30 % Not Estab. Monocytes (test code = 5905-5) 5 % Not Estab. Eos (test code = 713-8) 4 % Not Estab. Basos (test code = 706-2) 2 % Not Estab. Neutrophils (Absolute) (test 3.1 x10E3/uL 1.4-7.0 code = 751-8) Lymphs (Absolute) (test code = 1.6 x10E3/uL 0.7-3.1 731-0) Monocytes(Absolute) (test code 0.2 x10E3/uL 0.1-0.9 = 742-7) Eos (Absolute) (test code = 0.2 x10E3/uL 0.0-0.4 711-2) Baso (Absolute) (test code = 0.1 x10E3/uL 0.0-0.2 704-7) Immature Granulocytes (test 0 % Not Estab. code = 47194-8) Immature Grans (Abs) (test code 0.0 x10E3/uL 0.0-0.1 = 45257-5) NRBC (test code = 13375-9) Hematology Comments: (test code = 45658-7) [facility] Description: CBC With Differential/[id number] 02:16:00 Test Item Value Reference Range Interpretation Comments WBC (test code = 6690-2) 5.3 x10E3/uL 3.4-10.8 RBC (test code = 789-8) 3.86 x10E6/uL 3.77-5.28 Hemoglobin (test code = 718-7) 10.2 g/dL 11.1-15.9 L Hematocrit (test code = 4544-3) 33.0 % 34.0-46.6 L MCV (test code = 787-2) 86 fL 79-97 MCH (test code = 785-6) 26.4 pg 26.6-33.0 L MCHC (test code = 786-4) 30.9 g/dL 31.5-35.7 L RDW (test code = 788-0) 16.4 % 12.3-15.4 H Platelets (test code = 777-3) 401 x10E3/uL 150-450 Neutrophils (test code = 770-8) 59 % Not Estab. Lymphs (test code = 736-9) 30 % Not Estab. Monocytes (test code = 5905-5) 5 % Not Estab. Eos (test code = 713-8) 4 % Not Estab. Basos (test code = 706-2) 2 % Not Estab. Neutrophils (Absolute) (test 3.1 x10E3/uL 1.4-7.0 code = 751-8) Lymphs (Absolute) (test code = 1.6 x10E3/uL 0.7-3.1 731-0) Monocytes(Absolute) (test code 0.2 x10E3/uL 0.1-0.9 = 742-7) Eos (Absolute) (test code = 0.2 x10E3/uL 0.0-0.4 711-2) Baso (Absolute) (test code = 0.1 x10E3/uL 0.0-0.2 704-7) Immature Granulocytes (test 0 % Not Estab. code = 61983-4) Immature Grans (Abs) (test code 0.0 x10E3/uL 0.0-0.1 = 02592-6) NRBC (test code = 18498-9) Hematology Comments: (test code = 93306-6) [facility] Description: CBC With Differential/[id number] 02:16:00 Test Item Value Reference Range Interpretation Comments WBC (test code = 6690-2) 5.3 x10E3/uL 3.4-10.8 RBC (test code = 789-8) 3.86 x10E6/uL 3.77-5.28 Hemoglobin (test code = 718-7) 10.2 g/dL 11.1-15.9 L Hematocrit (test code = 4544-3) 33.0 % 34.0-46.6 L MCV (test code = 787-2) 86 fL 79-97 MCH (test code = 785-6) 26.4 pg 26.6-33.0 L MCHC (test code = 786-4) 30.9 g/dL 31.5-35.7 L RDW (test code = 788-0) 16.4 % 12.3-15.4 H Platelets (test code = 777-3) 401 x10E3/uL 150-450 Neutrophils (test code = 770-8) 59 % Not Estab. Lymphs (test code = 736-9) 30 % Not Estab. Monocytes (test code = 5905-5) 5 % Not Estab. Eos (test code = 713-8) 4 % Not Estab. Basos (test code = 706-2) 2 % Not Estab. Neutrophils (Absolute) (test 3.1 x10E3/uL 1.4-7.0 code = 751-8) Lymphs (Absolute) (test code = 1.6 x10E3/uL 0.7-3.1 731-0) Monocytes(Absolute) (test code 0.2 x10E3/uL 0.1-0.9 = 742-7) Eos (Absolute) (test code = 0.2 x10E3/uL 0.0-0.4 711-2) Baso (Absolute) (test code = 0.1 x10E3/uL 0.0-0.2 704-7) Immature Granulocytes (test 0 % Not Estab. code = 06961-3) Immature Grans (Abs) (test code 0.0 x10E3/uL 0.0-0.1 = 07235-8) NRBC (test code = 33422-3) Hematology Comments: (test code = 26479-1) [facility] Description: CBC With Differential/[id number] 02:16:00 Test Item Value Reference Range Interpretation Comments WBC (test code = 6690-2) 5.3 x10E3/uL 3.4-10.8 RBC (test code = 789-8) 3.86 x10E6/uL 3.77-5.28 Hemoglobin (test code = 718-7) 10.2 g/dL 11.1-15.9 L Hematocrit (test code = 4544-3) 33.0 % 34.0-46.6 L MCV (test code = 787-2) 86 fL 79-97 MCH (test code = 785-6) 26.4 pg 26.6-33.0 L MCHC (test code = 786-4) 30.9 g/dL 31.5-35.7 L RDW (test code = 788-0) 16.4 % 12.3-15.4 H Platelets (test code = 777-3) 401 x10E3/uL 150-450 Neutrophils (test code = 770-8) 59 % Not Estab. Lymphs (test code = 736-9) 30 % Not Estab. Monocytes (test code = 5905-5) 5 % Not Estab. Eos (test code = 713-8) 4 % Not Estab. Basos (test code = 706-2) 2 % Not Estab. Neutrophils (Absolute) (test 3.1 x10E3/uL 1.4-7.0 code = 751-8) Lymphs (Absolute) (test code = 1.6 x10E3/uL 0.7-3.1 731-0) Monocytes(Absolute) (test code 0.2 x10E3/uL 0.1-0.9 = 742-7) Eos (Absolute) (test code = 0.2 x10E3/uL 0.0-0.4 711-2) Baso (Absolute) (test code = 0.1 x10E3/uL 0.0-0.2 704-7) Immature Granulocytes (test 0 % Not Estab. code = 93241-2) Immature Grans (Abs) (test code 0.0 x10E3/uL 0.0-0.1 = 65255-5) NRBC (test code = 30705-2) Hematology Comments: (test code = 94142-0) [facility] Description: CBC With Differential/[id number] 02:16:00 Test Item Value Reference Range Interpretation Comments WBC (test code = 6690-2) 5.3 x10E3/uL 3.4-10.8 RBC (test code = 789-8) 3.86 x10E6/uL 3.77-5.28 Hemoglobin (test code = 718-7) 10.2 g/dL 11.1-15.9 L Hematocrit (test code = 4544-3) 33.0 % 34.0-46.6 L MCV (test code = 787-2) 86 fL 79-97 MCH (test code = 785-6) 26.4 pg 26.6-33.0 L MCHC (test code = 786-4) 30.9 g/dL 31.5-35.7 L RDW (test code = 788-0) 16.4 % 12.3-15.4 H Platelets (test code = 777-3) 401 x10E3/uL 150-450 Neutrophils (test code = 770-8) 59 % Not Estab. Lymphs (test code = 736-9) 30 % Not Estab. Monocytes (test code = 5905-5) 5 % Not Estab. Eos (test code = 713-8) 4 % Not Estab. Basos (test code = 706-2) 2 % Not Estab. Neutrophils (Absolute) (test 3.1 x10E3/uL 1.4-7.0 code = 751-8) Lymphs (Absolute) (test code = 1.6 x10E3/uL 0.7-3.1 731-0) Monocytes(Absolute) (test code 0.2 x10E3/uL 0.1-0.9 = 742-7) Eos (Absolute) (test code = 0.2 x10E3/uL 0.0-0.4 711-2) Baso (Absolute) (test code = 0.1 x10E3/uL 0.0-0.2 704-7) Immature Granulocytes (test 0 % Not Estab. code = 76622-7) Immature Grans (Abs) (test code 0.0 x10E3/uL 0.0-0.1 = 41835-6) NRBC (test code = 03471-1) Hematology Comments: (test code = 22600-5) [facility] Description: CBC With Differential/[id number] 02:16:00 Test Item Value Reference Range Interpretation Comments WBC (test code = 6690-2) 5.3 x10E3/uL 3.4-10.8 RBC (test code = 789-8) 3.86 x10E6/uL 3.77-5.28 Hemoglobin (test code = 718-7) 10.2 g/dL 11.1-15.9 L Hematocrit (test code = 4544-3) 33.0 % 34.0-46.6 L MCV (test code = 787-2) 86 fL 79-97 MCH (test code = 785-6) 26.4 pg 26.6-33.0 L MCHC (test code = 786-4) 30.9 g/dL 31.5-35.7 L RDW (test code = 788-0) 16.4 % 12.3-15.4 H Platelets (test code = 777-3) 401 x10E3/uL 150-450 Neutrophils (test code = 770-8) 59 % Not Estab. Lymphs (test code = 736-9) 30 % Not Estab. Monocytes (test code = 5905-5) 5 % Not Estab. Eos (test code = 713-8) 4 % Not Estab. Basos (test code = 706-2) 2 % Not Estab. Neutrophils (Absolute) (test 3.1 x10E3/uL 1.4-7.0 code = 751-8) Lymphs (Absolute) (test code = 1.6 x10E3/uL 0.7-3.1 731-0) Monocytes(Absolute) (test code 0.2 x10E3/uL 0.1-0.9 = 742-7) Eos (Absolute) (test code = 0.2 x10E3/uL 0.0-0.4 711-2) Baso (Absolute) (test code = 0.1 x10E3/uL 0.0-0.2 704-7) Immature Granulocytes (test 0 % Not Estab. code = 60075-6) Immature Grans (Abs) (test code 0.0 x10E3/uL 0.0-0.1 = 41051-2) NRBC (test code = 16652-7) Hematology Comments: (test code = 54538-7) [facility] Description: CBC With Differential/[id number] 02:16:00 Test Item Value Reference Range Interpretation Comments WBC (test code = 6690-2) 5.3 x10E3/uL 3.4-10.8 RBC (test code = 789-8) 3.86 x10E6/uL 3.77-5.28 Hemoglobin (test code = 718-7) 10.2 g/dL 11.1-15.9 L Hematocrit (test code = 4544-3) 33.0 % 34.0-46.6 L MCV (test code = 787-2) 86 fL 79-97 MCH (test code = 785-6) 26.4 pg 26.6-33.0 L MCHC (test code = 786-4) 30.9 g/dL 31.5-35.7 L RDW (test code = 788-0) 16.4 % 12.3-15.4 H Platelets (test code = 777-3) 401 x10E3/uL 150-450 Neutrophils (test code = 770-8) 59 % Not Estab. Lymphs (test code = 736-9) 30 % Not Estab. Monocytes (test code = 5905-5) 5 % Not Estab. Eos (test code = 713-8) 4 % Not Estab. Basos (test code = 706-2) 2 % Not Estab. Neutrophils (Absolute) (test 3.1 x10E3/uL 1.4-7.0 code = 751-8) Lymphs (Absolute) (test code = 1.6 x10E3/uL 0.7-3.1 731-0) Monocytes(Absolute) (test code 0.2 x10E3/uL 0.1-0.9 = 742-7) Eos (Absolute) (test code = 0.2 x10E3/uL 0.0-0.4 711-2) Baso (Absolute) (test code = 0.1 x10E3/uL 0.0-0.2 704-7) Immature Granulocytes (test 0 % Not Estab. code = 80595-5) Immature Grans (Abs) (test code 0.0 x10E3/uL 0.0-0.1 = 71510-5) NRBC (test code = 53457-4) Hematology Comments: (test code = 79097-1) [facility] Description: CBC With Differential/[id number] 02:16:00 Test Item Value Reference Range Interpretation Comments WBC (test code = 6690-2) 5.3 x10E3/uL 3.4-10.8 RBC (test code = 789-8) 3.86 x10E6/uL 3.77-5.28 Hemoglobin (test code = 718-7) 10.2 g/dL 11.1-15.9 L Hematocrit (test code = 4544-3) 33.0 % 34.0-46.6 L MCV (test code = 787-2) 86 fL 79-97 MCH (test code = 785-6) 26.4 pg 26.6-33.0 L MCHC (test code = 786-4) 30.9 g/dL 31.5-35.7 L RDW (test code = 788-0) 16.4 % 12.3-15.4 H Platelets (test code = 777-3) 401 x10E3/uL 150-450 Neutrophils (test code = 770-8) 59 % Not Estab. Lymphs (test code = 736-9) 30 % Not Estab. Monocytes (test code = 5905-5) 5 % Not Estab. Eos (test code = 713-8) 4 % Not Estab. Basos (test code = 706-2) 2 % Not Estab. Neutrophils (Absolute) (test 3.1 x10E3/uL 1.4-7.0 code = 751-8) Lymphs (Absolute) (test code = 1.6 x10E3/uL 0.7-3.1 731-0) Monocytes(Absolute) (test code 0.2 x10E3/uL 0.1-0.9 = 742-7) Eos (Absolute) (test code = 0.2 x10E3/uL 0.0-0.4 711-2) Baso (Absolute) (test code = 0.1 x10E3/uL 0.0-0.2 704-7) Immature Granulocytes (test 0 % Not Estab. code = 86228-9) Immature Grans (Abs) (test code 0.0 x10E3/uL 0.0-0.1 = 41201-3) NRBC (test code = 71455-4) Hematology Comments: (test code = 19858-1) [facility] Description: CBC With Differential/Inbzwpxw6236-14-89 02:16:00 Test Item Value Reference Range Interpretation Comments WBC (test code = 6690-2) 5.3 x10E3/uL 3.4-10.8 RBC (test code = 789-8) 3.86 x10E6/uL 3.77-5.28 Hemoglobin (test code = 718-7) 10.2 g/dL 11.1-15.9 L Hematocrit (test code = 4544-3) 33.0 % 34.0-46.6 L MCV (test code = 787-2) 86 fL 79-97 MCH (test code = 785-6) 26.4 pg 26.6-33.0 L MCHC (test code = 786-4) 30.9 g/dL 31.5-35.7 L RDW (test code = 788-0) 16.4 % 12.3-15.4 H Platelets (test code = 777-3) 401 x10E3/uL 150-450 Neutrophils (test code = 770-8) 59 % Not Estab. Lymphs (test code = 736-9) 30 % Not Estab. Monocytes (test code = 5905-5) 5 % Not Estab. Eos (test code = 713-8) 4 % Not Estab. Basos (test code = 706-2) 2 % Not Estab. Neutrophils (Absolute) (test 3.1 x10E3/uL 1.4-7.0 code = 751-8) Lymphs (Absolute) (test code = 1.6 x10E3/uL 0.7-3.1 731-0) Monocytes(Absolute) (test code 0.2 x10E3/uL 0.1-0.9 = 742-7) Eos (Absolute) (test code = 0.2 x10E3/uL 0.0-0.4 711-2) Baso (Absolute) (test code = 0.1 x10E3/uL 0.0-0.2 704-7) Immature Granulocytes (test 0 % Not Estab. code = 77487-7) Immature Grans (Abs) (test code 0.0 x10E3/uL 0.0-0.1 = 94321-6) NRBC (test code = 62121-5) Hematology Comments: (test code = 25044-9) [facility] Description: CBC With Differential/[id number] 02:16:00 Test Item Value Reference Range Interpretation Comments WBC (test code = 6690-2) 5.3 x10E3/uL 3.4-10.8 RBC (test code = 789-8) 3.86 x10E6/uL 3.77-5.28 Hemoglobin (test code = 718-7) 10.2 g/dL 11.1-15.9 L Hematocrit (test code = 4544-3) 33.0 % 34.0-46.6 L MCV (test code = 787-2) 86 fL 79-97 MCH (test code = 785-6) 26.4 pg 26.6-33.0 L MCHC (test code = 786-4) 30.9 g/dL 31.5-35.7 L RDW (test code = 788-0) 16.4 % 12.3-15.4 H Platelets (test code = 777-3) 401 x10E3/uL 150-450 Neutrophils (test code = 770-8) 59 % Not Estab. Lymphs (test code = 736-9) 30 % Not Estab. Monocytes (test code = 5905-5) 5 % Not Estab. Eos (test code = 713-8) 4 % Not Estab. Basos (test code = 706-2) 2 % Not Estab. Neutrophils (Absolute) (test 3.1 x10E3/uL 1.4-7.0 code = 751-8) Lymphs (Absolute) (test code = 1.6 x10E3/uL 0.7-3.1 731-0) Monocytes(Absolute) (test code 0.2 x10E3/uL 0.1-0.9 = 742-7) Eos (Absolute) (test code = 0.2 x10E3/uL 0.0-0.4 711-2) Baso (Absolute) (test code = 0.1 x10E3/uL 0.0-0.2 704-7) Immature Granulocytes (test 0 % Not Estab. code = 78685-8) Immature Grans (Abs) (test code 0.0 x10E3/uL 0.0-0.1 = 04476-1) NRBC (test code = 96904-8) Hematology Comments: (test code = 78435-6) [facility] Description: Basic Metabolic Panel (8)2019-07-25 01:01:00 Test Item Value Reference Range Interpretation Comments Glucose (test code = 2345-7) 84 mg/dL 65-99 BUN (test code = 3094-0) 12 mg/dL 6-24 Creatinine (test code = 0.52 mg/dL 0.57-1.00 L 2160-0) eGFR If NonAfricn Am (test 119 mL/min/1.73 >59 code = 62891-3) eGFR If Africn Am (test code 137 mL/min/1.73 >59 = 33684-8) BUN/Creatinine Ratio (test 07-08 code = 3097-3) Sodium (test code = 2951-2) 138 mmol/L 134-144 Potassium (test code = 4.3 mmol/L 3.5-5.2 2823-3) Chloride (test code = 2075-0) 100 mmol/L 96-106 Carbon Dioxide, Total (test 21 mmol/L code = 2027-) Calcium (test code = 45084-1) 8.9 mg/dL 8.7-10.2 [facility] Description: Basic Metabolic Panel (8)2019-07-25 01:01:00 Test Item Value Reference Range Interpretation Comments Glucose (test code = 2345-7) 84 mg/dL 65-99 BUN (test code = 3094-0) 12 mg/dL 6-24 Creatinine (test code = 0.52 mg/dL 0.57-1.00 L 2160-0) eGFR If NonAfricn Am (test 119 mL/min/1.73 >59 code = 53438-4) eGFR If Africn Am (test code 137 mL/min/1.73 >59 = 80543-0) BUN/Creatinine Ratio (test 07-08 code = 3097-3) Sodium (test code = 2951-2) 138 mmol/L 134-144 Potassium (test code = 4.3 mmol/L 3.5-5.2 2823-3) Chloride (test code = 2075-0) 100 mmol/L 96-106 Carbon Dioxide, Total (test 21 mmol/L code = 2027-9) Calcium (test code = 92756-5) 8.9 mg/dL 8.7-10.2 [facility] Description: Basic Metabolic Panel (8)2019-07-25 01:01:00 Test Item Value Reference Range Interpretation Comments Glucose (test code = 2345-7) 84 mg/dL 65-99 BUN (test code = 3094-0) 12 mg/dL 6-24 Creatinine (test code = 0.52 mg/dL 0.57-1.00 L 2160-0) eGFR If NonAfricn Am (test 119 mL/min/1.73 >59 code = 77364-8) eGFR If Africn Am (test code 137 mL/min/1.73 >59 = 38841-2) BUN/Creatinine Ratio (test 07-08 code = 3097-3) Sodium (test code = 2951-2) 138 mmol/L 134-144 Potassium (test code = 4.3 mmol/L 3.5-5.2 2823-3) Chloride (test code = 2075-0) 100 mmol/L 96-106 Carbon Dioxide, Total (test 21 mmol/L code = 2027-) Calcium (test code = 37434-0) 8.9 mg/dL 8.7-10.2 [facility] Description: Basic Metabolic Panel (8)2019-07-25 01:01:00 Test Item Value Reference Range Interpretation Comments Glucose (test code = 2345-7) 84 mg/dL 65-99 BUN (test code = 3094-0) 12 mg/dL 6-24 Creatinine (test code = 0.52 mg/dL 0.57-1.00 L 2160-0) eGFR If NonAfricn Am (test 119 mL/min/1.73 >59 code = 22274-6) eGFR If Africn Am (test code 137 mL/min/1.73 >59 = 67629-5) BUN/Creatinine Ratio (test 07-08 code = 3097-3) Sodium (test code = 2951-2) 138 mmol/L 134-144 Potassium (test code = 4.3 mmol/L 3.5-5.2 2823-3) Chloride (test code = 2075-0) 100 mmol/L 96-106 Carbon Dioxide, Total (test 21 mmol/L code = 2027-) Calcium (test code = 78352-7) 8.9 mg/dL 8.7-10.2 [facility] Description: Basic Metabolic Panel (8)2019-07-25 01:01:00 Test Item Value Reference Range Interpretation Comments Glucose (test code = 2345-7) 84 mg/dL 65-99 BUN (test code = 3094-0) 12 mg/dL 6-24 Creatinine (test code = 0.52 mg/dL 0.57-1.00 L 2160-0) eGFR If NonAfricn Am (test 119 mL/min/1.73 >59 code = 93516-2) eGFR If Africn Am (test code 137 mL/min/1.73 >59 = 53964-7) BUN/Creatinine Ratio (test 07-08 code = 3097-3) Sodium (test code = 2951-2) 138 mmol/L 134-144 Potassium (test code = 4.3 mmol/L 3.5-5.2 2823-3) Chloride (test code = 2075-0) 100 mmol/L 96-106 Carbon Dioxide, Total (test 21 mmol/L code = 2027-) Calcium (test code = 84297-2) 8.9 mg/dL 8.7-10.2 [facility] Description: Basic Metabolic [facility] (8)2019-07-25 01:01:00 Test Item Value Reference Range Interpretation Comments Glucose (test code = 2345-7) 84 mg/dL 65-99 BUN (test code = 3094-0) 12 mg/dL 6-24 Creatinine (test code = 0.52 mg/dL 0.57-1.00 L 2160-0) eGFR If NonAfricn Am (test 119 mL/min/1.73 >59 code = 18234-6) eGFR If Africn Am (test code 137 mL/min/1.73 >59 = 79487-5) BUN/Creatinine Ratio (test 07-08 code = 3097-3) Sodium (test code = 2951-2) 138 mmol/L 134-144 Potassium (test code = 4.3 mmol/L 3.5-5.2 2823-3) Chloride (test code = 2075-0) 100 mmol/L 96-106 Carbon Dioxide, Total (test 21 mmol/L - code = 8-9) Calcium (test code = 44221-8) 8.9 mg/dL 8.7-10.2 [facility] Description: Basic Metabolic Panel (8)2019-07-25 01:01:00 Test Item Value Reference Range Interpretation Comments Glucose (test code = 2345-7) 84 mg/dL 65-99 BUN (test code = 3094-0) 12 mg/dL 6-24 Creatinine (test code = 0.52 mg/dL 0.57-1.00 L 2160-0) eGFR If NonAfricn Am (test 119 mL/min/1.73 >59 code = 04457-0) eGFR If Africn Am (test code 137 mL/min/1.73 >59 = 70525-8) BUN/Creatinine Ratio (test 07-08 code = 3097-3) Sodium (test code = 2951-2) 138 mmol/L 134-144 Potassium (test code = 4.3 mmol/L 3.5-5.2 2823-3) Chloride (test code = 2075-0) 100 mmol/L 96-106 Carbon Dioxide, Total (test 21 mmol/L - code = 2027-9) Calcium (test code = 39520-3) 8.9 mg/dL 8.7-10.2 [facility] Description: Basic Metabolic Panel (8)2019-07-25 01:01:00 Test Item Value Reference Range Interpretation Comments Glucose (test code = 2345-7) 84 mg/dL 65-99 BUN (test code = 3094-0) 12 mg/dL 6-24 Creatinine (test code = 0.52 mg/dL 0.57-1.00 L 2160-0) eGFR If NonAfricn Am (test 119 mL/min/1.73 >59 code = 15026-9) eGFR If Africn Am (test code 137 mL/min/1.73 >59 = 04607-5) BUN/Creatinine Ratio (test 07-08 code = 3097-3) Sodium (test code = 2951-2) 138 mmol/L 134-144 Potassium (test code = 4.3 mmol/L 3.5-5.2 2823-3) Chloride (test code = 2075-0) 100 mmol/L 96-106 Carbon Dioxide, Total (test 21 mmol/L -29 code = 2027-9) Calcium (test code = 15223-5) 8.9 mg/dL 8.7-10.2 [facility] Description: Basic Metabolic Panel (8)2019-07-25 01:01:00 Test Item Value Reference Range Interpretation Comments Glucose (test code = 2345-7) 84 mg/dL 65-99 BUN (test code = 3094-0) 12 mg/dL 6-24 Creatinine (test code = 0.52 mg/dL 0.57-1.00 L 2160-0) eGFR If NonAfricn Am (test 119 mL/min/1.73 >59 code = 33061-1) eGFR If Africn Am (test code 137 mL/min/1.73 >59 = 00069-3) BUN/Creatinine Ratio (test 23 07-08 code = 3097-3) Sodium (test code = 2951-2) 138 mmol/L 134-144 Potassium (test code = 4.3 mmol/L 3.5-5.2 2823-3) Chloride (test code = 2075-0) 100 mmol/L 96-106 Carbon Dioxide, Total (test 21 mmol/L - code = 2027-9) Calcium (test code = 42526-6) 8.9 mg/dL 8.7-10.2 [facility] Description: Basic Metabolic Panel (8)2019-07-25 01:01:00 Test Item Value Reference Range Interpretation Comments Glucose (test code = 2345-7) 84 mg/dL 65-99 BUN (test code = 3094-0) 12 mg/dL 6-24 Creatinine (test code = 0.52 mg/dL 0.57-1.00 L 2160-0) eGFR If NonAfricn Am (test 119 mL/min/1.73 >59 code = 80127-4) eGFR If Africn Am (test code 137 mL/min/1.73 >59 = 22166-3) BUN/Creatinine Ratio (test 23 07-08 code = 3097-3) Sodium (test code = 2951-2) 138 mmol/L 134-144 Potassium (test code = 4.3 mmol/L 3.5-5.2 2823-3) Chloride (test code = 2075-0) 100 mmol/L 96-106 Carbon Dioxide, Total (test 21 mmol/L - code = 2027-9) Calcium (test code = 26583-4) 8.9 mg/dL 8.7-10.2 [facility] Description: Basic Metabolic Panel (8)2019-07-25 01:01:00 Test Item Value Reference Range Interpretation Comments Glucose (test code = 2345-7) 84 mg/dL 65-99 BUN (test code = 3094-0) 12 mg/dL 6-24 Creatinine (test code = 0.52 mg/dL 0.57-1.00 L 2160-0) eGFR If NonAfricn Am (test 119 mL/min/1.73 >59 code = 74713-3) eGFR If Africn Am (test code 137 mL/min/1.73 >59 = 59020-5) BUN/Creatinine Ratio (test 07-08 code = 3097-3) Sodium (test code = 2951-2) 138 mmol/L 134-144 Potassium (test code = 4.3 mmol/L 3.5-5.2 2823-3) Chloride (test code = 2075-0) 100 mmol/L 96-106 Carbon Dioxide, Total (test 21 mmol/L - code = 2027-9) Calcium (test code = 13604-4) 8.9 mg/dL 8.7-10.2 [facility] Description: Basic Metabolic Panel (8)2019-07-25 01:01:00 Test Item Value Reference Range Interpretation Comments Glucose (test code = 2345-7) 84 mg/dL 65-99 BUN (test code = 3094-0) 12 mg/dL 6-24 Creatinine (test code = 0.52 mg/dL 0.57-1.00 L 2160-0) eGFR If NonAfricn Am (test 119 mL/min/1.73 >59 code = 98027-9) eGFR If Africn Am (test code 137 mL/min/1.73 >59 = 92618-7) BUN/Creatinine Ratio (test 23 07-08 code = 3097-3) Sodium (test code = 2951-2) 138 mmol/L 134-144 Potassium (test code = 4.3 mmol/L 3.5-5.2 2823-3) Chloride (test code = 2075-0) 100 mmol/L 96-106 Carbon Dioxide, Total (test 21 mmol/L - code = 2027-9) Calcium (test code = 88955-6) 8.9 mg/dL 8.7-10.2 [facility] Description: Basic Metabolic Panel (8)2019-07-25 01:01:00 Test Item Value Reference Range Interpretation Comments Glucose (test code = 2345-7) 84 mg/dL 65-99 BUN (test code = 3094-0) 12 mg/dL 6-24 Creatinine (test code = 0.52 mg/dL 0.57-1.00 L 2160-0) eGFR If NonAfricn Am (test 119 mL/min/1.73 >59 code = 52041-3) eGFR If Africn Am (test code 137 mL/min/1.73 >59 = 54170-9) BUN/Creatinine Ratio (test 07-08 code = 3097-3) Sodium (test code = 2951-2) 138 mmol/L 134-144 Potassium (test code = 4.3 mmol/L 3.5-5.2 2823-3) Chloride (test code = 2075-0) 100 mmol/L 96-106 Carbon Dioxide, Total (test 21 mmol/L code = 2027-9) Calcium (test code = 92028-7) 8.9 mg/dL 8.7-10.2 [facility] Description: Basic Metabolic Panel (8)2019-07-25 01:01:00 Test Item Value Reference Range Interpretation Comments Glucose (test code = 2345-7) 84 mg/dL 65-99 BUN (test code = 3094-0) 12 mg/dL 6-24 Creatinine (test code = 0.52 mg/dL 0.57-1.00 L 2160-0) eGFR If NonAfricn Am (test 119 mL/min/1.73 >59 code = 34576-4) eGFR If Africn Am (test code 137 mL/min/1.73 >59 = 89300-2) BUN/Creatinine Ratio (test 07-08 code = 3097-3) Sodium (test code = 2951-2) 138 mmol/L 134-144 Potassium (test code = 4.3 mmol/L 3.5-5.2 2823-3) Chloride (test code = 2075-0) 100 mmol/L 96-106 Carbon Dioxide, Total (test 21 mmol/L code = 2027-) Calcium (test code = 58905-4) 8.9 mg/dL 8.7-10.2 [facility] Description: Basic Metabolic Panel (8)2019-07-25 01:01:00 Test Item Value Reference Range Interpretation Comments Glucose (test code = 2345-7) 84 mg/dL 65-99 BUN (test code = 3094-0) 12 mg/dL 6-24 Creatinine (test code = 0.52 mg/dL 0.57-1.00 L 2160-0) eGFR If NonAfricn Am (test 119 mL/min/1.73 >59 code = 73324-5) eGFR If Africn Am (test code 137 mL/min/1.73 >59 = 91027-0) BUN/Creatinine Ratio (test 07-08 code = 3097-3) Sodium (test code = 2951-2) 138 mmol/L 134-144 Potassium (test code = 4.3 mmol/L 3.5-5.2 2823-3) Chloride (test code = 2075-0) 100 mmol/L 96-106 Carbon Dioxide, Total (test 21 mmol/L code = 2027-) Calcium (test code = 16170-6) 8.9 mg/dL 8.7-10.2 [facility] Description: Basic Metabolic Panel (8)2019-07-25 01:01:00 Test Item Value Reference Range Interpretation Comments Glucose (test code = 2345-7) 84 mg/dL 65-99 BUN (test code = 3094-0) 12 mg/dL 6-24 Creatinine (test code = 0.52 mg/dL 0.57-1.00 L 2160-0) eGFR If NonAfricn Am (test 119 mL/min/1.73 >59 code = 60346-8) eGFR If Africn Am (test code 137 mL/min/1.73 >59 = 70670-5) BUN/Creatinine Ratio (test 07-08 code = 3097-3) Sodium (test code = 2951-2) 138 mmol/L 134-144 Potassium (test code = 4.3 mmol/L 3.5-5.2 2823-3) Chloride (test code = 2075-0) 100 mmol/L 96-106 Carbon Dioxide, Total (test 21 mmol/L - code = 2027-) Calcium (test code = 96942-8) 8.9 mg/dL 8.7-10.2 [facility] Description: Basic Metabolic Panel (8)2019-07-25 01:01:00 Test Item Value Reference Range Interpretation Comments Glucose (test code = 2345-7) 84 mg/dL 65-99 BUN (test code = 3094-0) 12 mg/dL 6-24 Creatinine (test code = 0.52 mg/dL 0.57-1.00 L 2160-0) eGFR If NonAfricn Am (test 119 mL/min/1.73 >59 code = 65480-7) eGFR If Africn Am (test code 137 mL/min/1.73 >59 = 34259-3) BUN/Creatinine Ratio (test 07-08 code = 3097-3) Sodium (test code = 2951-2) 138 mmol/L 134-144 Potassium (test code = 4.3 mmol/L 3.5-5.2 2823-3) Chloride (test code = 2075-0) 100 mmol/L 96-106 Carbon Dioxide, Total (test 21 mmol/L - code = 2027-) Calcium (test code = 22569-0) 8.9 mg/dL 8.7-10.2 [facility] Description: Basic Metabolic Panel (8)2019-07-25 01:01:00 Test Item Value Reference Range Interpretation Comments Glucose (test code = 2345-7) 84 mg/dL 65-99 BUN (test code = 3094-0) 12 mg/dL 6-24 Creatinine (test code = 0.52 mg/dL 0.57-1.00 L 2160-0) eGFR If NonAfricn Am (test 119 mL/min/1.73 >59 code = 95571-3) eGFR If Africn Am (test code 137 mL/min/1.73 >59 = 20675-7) BUN/Creatinine Ratio (test 07-08 code = 3097-3) Sodium (test code = 2951-2) 138 mmol/L 134-144 Potassium (test code = 4.3 mmol/L 3.5-5.2 2823-3) Chloride (test code = 2075-0) 100 mmol/L 96-106 Carbon Dioxide, Total (test 21 mmol/L 20-29 code = 2027-9) Calcium (test code = 93715-0) 8.9 mg/dL 8.7-10.2 [facility] Description: Basic Metabolic Panel (8)2019-07-25 01:01:00 Test Item Value Reference Range Interpretation Comments Glucose (test code = 2345-7) 84 mg/dL 65-99 BUN (test code = 3094-0) 12 mg/dL 6-24 Creatinine (test code = 0.52 mg/dL 0.57-1.00 L 2160-0) eGFR If NonAfricn Am (test 119 mL/min/1.73 >59 code = 68236-6) eGFR If Africn Am (test code 137 mL/min/1.73 >59 = 78600-4) BUN/Creatinine Ratio (test 07-08 code = 3097-3) Sodium (test code = 2951-2) 138 mmol/L 134-144 Potassium (test code = 4.3 mmol/L 3.5-5.2 2823-3) Chloride (test code = 2075-0) 100 mmol/L 96-106 Carbon Dioxide, Total (test 21 mmol/L -29 code = 2027-9) Calcium (test code = 20160-6) 8.9 mg/dL 8.7-10.2 [facility] Description: Basic Metabolic Panel (8)2019-07-25 01:01:00 Test Item Value Reference Range Interpretation Comments Glucose (test code = 2345-7) 84 mg/dL 65-99 BUN (test code = 3094-0) 12 mg/dL 6-24 Creatinine (test code = 0.52 mg/dL 0.57-1.00 L 2160-0) eGFR If NonAfricn Am (test 119 mL/min/1.73 >59 code = 56447-2) eGFR If Africn Am (test code 137 mL/min/1.73 >59 = 78839-9) BUN/Creatinine Ratio (test 07-08 code = 3097-3) Sodium (test code = 2951-2) 138 mmol/L 134-144 Potassium (test code = 4.3 mmol/L 3.5-5.2 2823-3) Chloride (test code = 2075-0) 100 mmol/L 96-106 Carbon Dioxide, Total (test 21 mmol/L -29 code = 8-9) Calcium (test code = 69170-9) 8.9 mg/dL 8.7-10.2 [facility] Description: Basic Metabolic Panel (8)2019-07-25 01:01:00 Test Item Value Reference Range Interpretation Comments Glucose (test code = 2345-7) 84 mg/dL 65-99 BUN (test code = 3094-0) 12 mg/dL 6-24 Creatinine (test code = 0.52 mg/dL 0.57-1.00 L 2160-0) eGFR If NonAfricn Am (test 119 mL/min/1.73 >59 code = 95339-0) eGFR If Africn Am (test code 137 mL/min/1.73 >59 = 09409-5) BUN/Creatinine Ratio (test 23 - code = 3097-3) Sodium (test code = 2951-2) 138 mmol/L 134-144 Potassium (test code = 4.3 mmol/L 3.5-5.2 2823-3) Chloride (test code = 2075-0) 100 mmol/L 96-106 Carbon Dioxide, Total (test 21 mmol/L - code = 8-9) Calcium (test code = 89311-6) 8.9 mg/dL 8.7-10.2 [facility] Description: Basic Metabolic Panel (8)2019-07-25 01:01:00 Test Item Value Reference Range Interpretation Comments Glucose (test code = 2345-7) 84 mg/dL 65-99 BUN (test code = 3094-0) 12 mg/dL 6-24 Creatinine (test code = 0.52 mg/dL 0.57-1.00 L 2160-0) eGFR If NonAfricn Am (test 119 mL/min/1.73 >59 code = 65562-0) eGFR If Africn Am (test code 137 mL/min/1.73 >59 = 90216-4) BUN/Creatinine Ratio (test 23 - code = 3097-3) Sodium (test code = 2951-2) 138 mmol/L 134-144 Potassium (test code = 4.3 mmol/L 3.5-5.2 2823-3) Chloride (test code = 2075-0) 100 mmol/L 96-106 Carbon Dioxide, Total (test 21 mmol/L - code = 2027-9) Calcium (test code = 75209-6) 8.9 mg/dL 8.7-10.2 [facility] Description: Basic Metabolic Panel (8)2019-07-25 01:01:00 Test Item Value Reference Range Interpretation Comments Glucose (test code = 2345-7) 84 mg/dL 65-99 BUN (test code = 3094-0) 12 mg/dL 6-24 Creatinine (test code = 0.52 mg/dL 0.57-1.00 L 2160-0) eGFR If NonAfricn Am (test 119 mL/min/1.73 >59 code = 65805-4) eGFR If Africn Am (test code 137 mL/min/1.73 >59 = 50468-8) BUN/Creatinine Ratio (test 23 - code = 3097-3) Sodium (test code = 2951-2) 138 mmol/L 134-144 Potassium (test code = 4.3 mmol/L 3.5-5.2 2823-3) Chloride (test code = 2075-0) 100 mmol/L 96-106 Carbon Dioxide, Total (test 21 mmol/L - code = 2027-9) Calcium (test code = 49743-3) 8.9 mg/dL 8.7-10.2 [facility] Description: Basic Metabolic Panel (8)2019-07-25 01:01:00 Test Item Value Reference Range Interpretation Comments Glucose (test code = 2345-7) 84 mg/dL 65-99 BUN (test code = 3094-0) 12 mg/dL 6-24 Creatinine (test code = 0.52 mg/dL 0.57-1.00 L 2160-0) eGFR If NonAfricn Am (test 119 mL/min/1.73 >59 code = 93278-9) eGFR If Africn Am (test code 137 mL/min/1.73 >59 = 03500-8) BUN/Creatinine Ratio (test 23 - code = 3097-3) Sodium (test code = 2951-2) 138 mmol/L 134-144 Potassium (test code = 4.3 mmol/L 3.5-5.2 2823-3) Chloride (test code = 2075-0) 100 mmol/L 96-106 Carbon Dioxide, Total (test 21 mmol/L -29 code = 2027-9) Calcium (test code = 90456-1) 8.9 mg/dL 8.7-10.2 [facility] Description: Basic Metabolic Panel (8)2019-07-25 01:01:00 Test Item Value Reference Range Interpretation Comments Glucose (test code = 2345-7) 84 mg/dL 65-99 BUN (test code = 3094-0) 12 mg/dL 6-24 Creatinine (test code = 0.52 mg/dL 0.57-1.00 L 2160-0) eGFR If NonAfricn Am (test 119 mL/min/1.73 >59 code = 73115-8) eGFR If Africn Am (test code 137 mL/min/1.73 >59 = 27675-8) BUN/Creatinine Ratio (test 23 07-08 code = 3097-3) Sodium (test code = 2951-2) 138 mmol/L 134-144 Potassium (test code = 4.3 mmol/L 3.5-5.2 2823-3) Chloride (test code = 2075-0) 100 mmol/L 96-106 Carbon Dioxide, Total (test 21 mmol/L code = 2027-9) Calcium (test code = 69537-6) 8.9 mg/dL 8.7-10.2 [facility] Description: Basic Metabolic Panel (8)2019-07-25 01:01:00 Test Item Value Reference Range Interpretation Comments Glucose (test code = 2345-7) 84 mg/dL 65-99 BUN (test code = 3094-0) 12 mg/dL 6-24 Creatinine (test code = 0.52 mg/dL 0.57-1.00 L 2160-0) eGFR If NonAfricn Am (test 119 mL/min/1.73 >59 code = 95244-9) eGFR If Africn Am (test code 137 mL/min/1.73 >59 = 90781-8) BUN/Creatinine Ratio (test 07-08 code = 3097-3) Sodium (test code = 2951-2) 138 mmol/L 134-144 Potassium (test code = 4.3 mmol/L 3.5-5.2 2823-3) Chloride (test code = 2075-0) 100 mmol/L 96-106 Carbon Dioxide, Total (test 21 mmol/L -29 code = 2027-9) Calcium (test code = 79728-2) 8.9 mg/dL 8.7-10.2 [facility] Description: Basic Metabolic Panel (8)2019-07-25 01:01:00 Test Item Value Reference Range Interpretation Comments Glucose (test code = 2345-7) 84 mg/dL 65-99 BUN (test code = 3094-0) 12 mg/dL 6-24 Creatinine (test code = 0.52 mg/dL 0.57-1.00 L 2160-0) eGFR If NonAfricn Am (test 119 mL/min/1.73 >59 code = 89536-5) eGFR If Africn Am (test code 137 mL/min/1.73 >59 = 94201-7) BUN/Creatinine Ratio (test 07-08 code = 3097-3) Sodium (test code = 2951-2) 138 mmol/L 134-144 Potassium (test code = 4.3 mmol/L 3.5-5.2 2823-3) Chloride (test code = 2075-0) 100 mmol/L 96-106 Carbon Dioxide, Total (test 21 mmol/L -29 code = 2027-9) Calcium (test code = 46426-2) 8.9 mg/dL 8.7-10.2 [facility] Description: Basic Metabolic Panel (8)2019-07-25 01:01:00 Test Item Value Reference Range Interpretation Comments Glucose (test code = 2345-7) 84 mg/dL 65-99 BUN (test code = 3094-0) 12 mg/dL 6-24 Creatinine (test code = 0.52 mg/dL 0.57-1.00 L 2160-0) eGFR If NonAfricn Am (test 119 mL/min/1.73 >59 code = 99418-0) eGFR If Africn Am (test code 137 mL/min/1.73 >59 = 51178-1) BUN/Creatinine Ratio (test 07-08 code = 3097-3) Sodium (test code = 2951-2) 138 mmol/L 134-144 Potassium (test code = 4.3 mmol/L 3.5-5.2 2823-3) Chloride (test code = 2075-0) 100 mmol/L 96-106 Carbon Dioxide, Total (test 21 mmol/L -29 code = 2027-9) Calcium (test code = 03917-0) 8.9 mg/dL 8.7-10.2 [facility] Description: Basic Metabolic Panel (8)2019-07-25 01:01:00 Test Item Value Reference Range Interpretation Comments Glucose (test code = 2345-7) 84 mg/dL 65-99 BUN (test code = 3094-0) 12 mg/dL 6-24 Creatinine (test code = 0.52 mg/dL 0.57-1.00 L 2160-0) eGFR If NonAfricn Am (test 119 mL/min/1.73 >59 code = 22330-4) eGFR If Africn Am (test code 137 mL/min/1.73 >59 = 76781-8) BUN/Creatinine Ratio (test 07-08 code = 3097-3) Sodium (test code = 2951-2) 138 mmol/L 134-144 Potassium (test code = 4.3 mmol/L 3.5-5.2 2823-3) Chloride (test code = 2075-0) 100 mmol/L 96-106 Carbon Dioxide, Total (test 21 mmol/L -29 code = 2027-9) Calcium (test code = 67938-1) 8.9 mg/dL 8.7-10.2 [facility] Description: Basic Metabolic Panel (8)2019-07-25 01:01:00 Test Item Value Reference Range Interpretation Comments Glucose (test code = 2345-7) 84 mg/dL 65-99 BUN (test code = 3094-0) 12 mg/dL 6-24 Creatinine (test code = 0.52 mg/dL 0.57-1.00 L 2160-0) eGFR If NonAfricn Am (test 119 mL/min/1.73 >59 code = 97650-4) eGFR If Africn Am (test code 137 mL/min/1.73 >59 = 88673-8) BUN/Creatinine Ratio (test 23 - code = 3097-3) Sodium (test code = 2951-2) 138 mmol/L 134-144 Potassium (test code = 4.3 mmol/L 3.5-5.2 2823-3) Chloride (test code = 2075-0) 100 mmol/L 96-106 Carbon Dioxide, Total (test 21 mmol/L -29 code = 2027-9) Calcium (test code = 98538-5) 8.9 mg/dL 8.7-10.2 [facility] Description: Basic Metabolic Panel (8)2019-07-25 01:01:00 Test Item Value Reference Range Interpretation Comments Glucose (test code = 2345-7) 84 mg/dL 65-99 BUN (test code = 3094-0) 12 mg/dL 6-24 Creatinine (test code = 0.52 mg/dL 0.57-1.00 L 2160-0) eGFR If NonAfricn Am (test 119 mL/min/1.73 >59 code = 96212-8) eGFR If Africn Am (test code 137 mL/min/1.73 >59 = 67681-4) BUN/Creatinine Ratio (test 23 07-08 code = 3097-3) Sodium (test code = 2951-2) 138 mmol/L 134-144 Potassium (test code = 4.3 mmol/L 3.5-5.2 2823-3) Chloride (test code = 2075-0) 100 mmol/L 96-106 Carbon Dioxide, Total (test 21 mmol/L -29 code = 8-9) Calcium (test code = 38308-2) 8.9 mg/dL 8.7-10.2 [facility] Description: Basic Metabolic Panel (8)2019-07-25 01:01:00 Test Item Value Reference Range Interpretation Comments Glucose (test code = 2345-7) 84 mg/dL 65-99 BUN (test code = 3094-0) 12 mg/dL 6-24 Creatinine (test code = 0.52 mg/dL 0.57-1.00 L 2160-0) eGFR If NonAfricn Am (test 119 mL/min/1.73 >59 code = 25048-9) eGFR If Africn Am (test code 137 mL/min/1.73 >59 = 49676-5) BUN/Creatinine Ratio (test 23 9-23 code = 3097-3) Sodium (test code = 2951-2) 138 mmol/L 134-144 Potassium (test code = 4.3 mmol/L 3.5-5.2 2823-3) Chloride (test code = 2075-0) 100 mmol/L 96-106 Carbon Dioxide, Total (test 21 mmol/L -29 code = 8-9) Calcium (test code = 21176-3) 8.9 mg/dL 8.7-10.2 [facility] Description: Basic Metabolic Panel (8)2019-07-25 01:01:00 Test Item Value Reference Range Interpretation Comments Glucose (test code = 2345-7) 84 mg/dL 65-99 BUN (test code = 3094-0) 12 mg/dL 6-24 Creatinine (test code = 0.52 mg/dL 0.57-1.00 L 2160-0) eGFR If NonAfricn Am (test 119 mL/min/1.73 >59 code = 46970-8) eGFR If Africn Am (test code 137 mL/min/1.73 >59 = 96187-7) BUN/Creatinine Ratio (test 23 -23 code = 3097-3) Sodium (test code = 2951-2) 138 mmol/L 134-144 Potassium (test code = 4.3 mmol/L 3.5-5.2 2823-3) Chloride (test code = 2075-0) 100 mmol/L 96-106 Carbon Dioxide, Total (test 21 mmol/L -29 code = 8-9) Calcium (test code = 14687-5) 8.9 mg/dL 8.7-10.2 [facility] Description: Basic Metabolic Panel (8)2019-07-25 01:01:00 Test Item Value Reference Range Interpretation Comments Glucose (test code = 2345-7) 84 mg/dL 65-99 BUN (test code = 3094-0) 12 mg/dL 6-24 Creatinine (test code = 0.52 mg/dL 0.57-1.00 L 2160-0) eGFR If NonAfricn Am (test 119 mL/min/1.73 >59 code = 64818-2) eGFR If Africn Am (test code 137 mL/min/1.73 >59 = 96692-8) BUN/Creatinine Ratio (test 23 - code = 3097-3) Sodium (test code = 2951-2) 138 mmol/L 134-144 Potassium (test code = 4.3 mmol/L 3.5-5.2 2823-3) Chloride (test code = 2075-0) 100 mmol/L 96-106 Carbon Dioxide, Total (test 21 mmol/L - code = 2027-9) Calcium (test code = 18788-2) 8.9 mg/dL 8.7-10.2 [facility] Description: Basic Metabolic Panel (8)2019-07-25 01:01:00 Test Item Value Reference Range Interpretation Comments Glucose (test code = 2345-7) 84 mg/dL 65-99 BUN (test code = 3094-0) 12 mg/dL 6-24 Creatinine (test code = 0.52 mg/dL 0.57-1.00 L 2160-0) eGFR If NonAfricn Am (test 119 mL/min/1.73 >59 code = 68472-1) eGFR If Africn Am (test code 137 mL/min/1.73 >59 = 80450-7) BUN/Creatinine Ratio (test 07-08 code = 3097-3) Sodium (test code = 2951-2) 138 mmol/L 134-144 Potassium (test code = 4.3 mmol/L 3.5-5.2 2823-3) Chloride (test code = 2075-0) 100 mmol/L 96-106 Carbon Dioxide, Total (test 21 mmol/L - code = 2027-9) Calcium (test code = 89039-4) 8.9 mg/dL 8.7-10.2 [facility] Description: Basic Metabolic Panel (8)2019-07-25 01:01:00 Test Item Value Reference Range Interpretation Comments Glucose (test code = 2345-7) 84 mg/dL 65-99 BUN (test code = 3094-0) 12 mg/dL 6-24 Creatinine (test code = 0.52 mg/dL 0.57-1.00 L 2160-0) eGFR If NonAfricn Am (test 119 mL/min/1.73 >59 code = 19092-3) eGFR If Africn Am (test code 137 mL/min/1.73 >59 = 05444-4) BUN/Creatinine Ratio (test 23 9-23 code = 3097-3) Sodium (test code = 2951-2) 138 mmol/L 134-144 Potassium (test code = 4.3 mmol/L 3.5-5.2 2823-3) Chloride (test code = 2075-0) 100 mmol/L 96-106 Carbon Dioxide, Total (test 21 mmol/L - code = 2027-) Calcium (test code = 32925-7) 8.9 mg/dL 8.7-10.2 [facility] Description: Basic Metabolic Panel (8)2019-07-25 01:01:00 Test Item Value Reference Range Interpretation Comments Glucose (test code = 2345-7) 84 mg/dL 65-99 BUN (test code = 3094-0) 12 mg/dL 6-24 Creatinine (test code = 0.52 mg/dL 0.57-1.00 L 2160-0) eGFR If NonAfricn Am (test 119 mL/min/1.73 >59 code = 41545-6) eGFR If Africn Am (test code 137 mL/min/1.73 >59 = 83579-9) BUN/Creatinine Ratio (test 23 07-08 code = 3097-3) Sodium (test code = 2951-2) 138 mmol/L 134-144 Potassium (test code = 4.3 mmol/L 3.5-5.2 2823-3) Chloride (test code = 2075-0) 100 mmol/L 96-106 Carbon Dioxide, Total (test 21 mmol/L - code = 2027-9) Calcium (test code = 01785-8) 8.9 mg/dL 8.7-10.2 [facility] Description: Basic Metabolic Panel (8)2019-07-25 01:01:00 Test Item Value Reference Range Interpretation Comments Glucose (test code = 2345-7) 84 mg/dL 65-99 BUN (test code = 3094-0) 12 mg/dL 6-24 Creatinine (test code = 0.52 mg/dL 0.57-1.00 L 2160-0) eGFR If NonAfricn Am (test 119 mL/min/1.73 >59 code = 55773-9) eGFR If Africn Am (test code 137 mL/min/1.73 >59 = 97505-3) BUN/Creatinine Ratio (test 23 9- code = 3097-3) Sodium (test code = 2951-2) 138 mmol/L 134-144 Potassium (test code = 4.3 mmol/L 3.5-5.2 2823-3) Chloride (test code = 5-0) 100 mmol/L 96-106 Carbon Dioxide, Total (test 21 mmol/L 20-29 code = 2027-9) Calcium (test code = 15564-0) 8.9 mg/dL 8.7-10.2 [id number] 22:42:00 Test Item Value Reference Range Interpretation Comments D-DIMER (test code = 210 ng/mL D-DU 0-234 DDI) D-DIMER COMMENT (test *Level to rule out code = DDCOM) DVT or PE: <235 ng/mL D-DU* BRAIN NATRIURETIC [id number] 22:29:00 Test Item Value Reference Range Interpretation Comments proBNP (test code = PBNP) 33 pg/mL 0-125 [id number] 22:25:00 Test Item Value Reference Range Interpretation Comments CPK (test code = 32A) 61 IU/L 26-192 COMPREHENSIVE METABOLIC [id number] 22:25:00 Test Item Value Reference Range Interpretation Comments GLUCOSE (test code = 06D) 65 mg/dL 75-100 L SODIUM (test code = 01A) 140 mmol/L 136-145 POTASSIUM (test code = 01B) 3.1 mmol/L 3.6-5.1 L CHLORIDE (test code = 04A) 108 mmol/L 98-107 H CO2 (test code = 02A) 23 mmol/L 22-32 ANION GAP (test code = ANG) 12.1 mmol/L BUN (test code = 05D) 10 mg/dL 7-18 CREATININE (test code = 03E) 0.7 mg/dL 0.4-1.1 BUN/CREA (test code = BCR) 13 12-20 CALCIUM (test code = 09D) 7.9 mg/dL 8.3-9.5 L BILI TOTAL (test code = 11A) 0.2 mg/dL 0.2-1.0 PROTEIN (test code = 07D) 6.7 g/dL 6.4-8.2 ALBUMIN (test code = 08D) 3.2 g/dL 3.5-4.8 L GLOBULIN (test code = GLB) 3.5 g/dL 1.5-3.8 ALB/GLOB (test code = AGRR) 0.9 1.0-2.6 L ALK PHOS (test code = 35A) 63 IU/L 42-121 AST (test code = 30A) 20 IU/L <=42 ALT (test code = 31A) 22 IU/L <=78 TROPONIN [id number] 22:21:00 Test Item Value Reference Range Interpretation Comments TROPONIN I (test code = A84) <0.015 ng/mL 0.000-0.045 CT HEAD W/O [id number] 22:20:29DICTATION LOCATION: [id number]: Female, 39 years of age. HeadacheEXAM: CT BRAIN WITHOUT CONTRASTCOMPARISON: None.TECHNIQUE: Helical axial images were obtained through the brain without IVcontrast. Coronal and sagittal reformats were performed. One or more of thefollowing dose reduction techniques wereused: Automated exposure control,adjustment of the mA and/or kV according to patient size, and/or uti lization ofiterative reconstruction technique.FINDINGS: There is no acute intra- axial or extra-axialhemorrhage, mass,mass effect or midline shift. No acute loss of the cortical frankel/whitejunctions. Nohydrocephalus. There is no acute calvarial fracture. The sinusesand mastoids are clear. IMPRESSION: Unremarkable CT brain without IV contrast.PRO TIME AND [id number] 22:19:00 Test Item Value Reference Range Interpretation Comments PT (test code = 10.0 s 9.8-13.6 TT) INR (test code = 0.9 INR) INRH (test code = SUGGESTED THERAPEUTIC INRH) RANGE FOR INR: 2.5 - 3.5 For Patients with Prosthetic Valves or Patients with recurrent Thromboembolic Events 2.0 - 3.0 For Most Other Applications PTT (test code = 23.0 s 20.2-38.0 PTT) PTTH (test code = To monitor the PTTH) effectiveness of heparin, we offer the Anti-Xa (Heparin Assay). It can be used for either unfractionated or LMW Heparin. Order Code is ANTI-XA CBC (INCLUDES AUTOMATED DIFFERENTIAL)2019-05-25 22:10:00 Test Item Value Reference Range Interpretation Comments WBC (test code = WBC) 8.3 10\\S\\3/uL 4.5-11.0 RBC (test code = RBC) 3.46 10\\S\\6/uL 4.30-5.70 L HGB (test code = HBG) 9.3 g/dL 12.0-15.5 L HCT (test code = HCT) 30.3 % 35.0-44.0 L MCV (test code = MCV) 87.6 fL 81.0-99.0 MCH (test code = MCH) 26.9 pg 27.0-31.0 L MCHC (test code = MCHC) 30.7 g/dL 32.0-36.0 L RDW (test code = RDW) 15.2 % 11.5-14.5 H PLT (test code = PLT) 366 10\\S\\3/uL 130-400 MPV (test code = MPV) 9.5 fL 9.4-12.4 NEUTROP # (test code = NE#) 3.9 10\\S\\3/uL 1.6-8.0 LYMPH # (test code = LY#) 3.5 10\\S\\3/uL 1.1-3.5 MONOCYTE # (test code = MO#) 0.6 10\\S\\3/uL 0.0-1.1 EOSINOPH # (test code = EO#) 0.3 10\\S\\3/uL 0.0-0.7 BASOPHIL # (test code = BA#) 0.1 10\\S\\3/uL 0.0-0.3 IG # (test code = IG#) 0.02 10\\S\\3/uL 0.00-0.06 NRBC # (test code = NRBC#) 0.00 10\\S\\3/uL 0.00-0.01 NEUTROPH % (test code = NE%) 47.0 % 35.0-73.0 LYMPH % (test code = LY%) 41.7 % 20.0-55.0 MONO % (test code = MO%) 6.7 % 2.5-10.0 EOSINOPH % (test code = EO%) 3.3 % 0.0-5.0 BASOPHIL % (test code = BA%) 1.1 % 0.0-2.0 IG % (test code = IG%) 0.2 % 0.0-0.8 NRBC% (test code = NRBC%) 0.0 % 0.0-0.2 MANDIFF (test code = MDIFF) NO NO RBC MORPH (test code = RBCMOR) NORMAL XR CHEST 2 [id number] 22:09:58DICTATION LOCATION: [id number]: Female, 39 years of age. CoughEXAM: 2 VIEW CHEST X-RAYCOMPARISON: None COMMENT: PA and lateral views are provided. No acute infiltrate oreffusion is seen. Cardiomediastinal silhouette is within normal limits. Noacute bony abnormalities. IMPRESSION: No acute disease.FISSURE/[id number] 13:08:00 RUN DATE: 06/22/18 [facility] PAGE 1 RUN TIME: 1449 Specimen Inquiry RUN USER: INTERFACE -PATIENT: [id number] AGE/SX: 38/F ROOM: [facility] RE06/21/18REG DR: Emeterio Gates MD : 76 BED: A DIS: 06/22/18 STATUS: DIS IN TLOC: SPEC #: [id number] RECD: 06/20/18 STATUS: KIARRA REBOLLEDO #: [id number] CARLOS: 06/20/18- SUBM DR: Emeterio Gates MD ENTERED: 06/21/18 SP TYPE: [facility] DR: ORDERED: LEVEL III SURGI/2 CODES: Y69130 - URINARY BLADDER [id number] - VAGINA, NOS NH OCEDURES: LEVEL III SURGI (Incomplete) TISSUES: VAGINA, NOS - VAGINAL FISTULA TRACT URINARY BLADDER,NOS - BLADDER FISTULA TRACT CLINICAL HISTORY 38 year old, vesicovaginal fistula (kr) FINAL DIAGNOSISFistula tract, vaginal, excision - granulation tissue - chronic inflammation Fistula tract, bladder, excision - granulation tissue - chronic inflammation Tissue code 1 CPT code(s): 73588 x2 miladis/kandy 06/22/18 @ 7550 GROSS DESCRIPTION Specimen #1 is received in a formalin- filled container, labeled with thepatient's name and designated "fistula tract (vaginal)". The specimen consists of several portions of rai and red tissue on a Telfa pad aggregating to 1 x 1 x 0.2 cm and is submitted in toto labeled A. Specimen #2 is received in a formalin-filled container, labeled with the patient's name, and designated "bladder fistula tract". The specimen consists of four portions of red tissue ranging from 0.2 to0.7 cm and is submitted in toto labeled B. ishan/kandy 06/21/18 @ 1124 MICROSCOPIC DESCRIPTION Both fistula tracts show possible tracts lined by granulation tissue with chronic and focal acute inflammation. Areas of benign squamous epithelium are also present. In addition, a small amount of foreign material that could fit with suture is present in the specimen labeled "bladder fistula tract". miladis/kandy 06/22/18 @5474 CONTINUED ON NEXT PAGE RUN DATE: 06/22/18 [facility] PAGE 2 RUN TIME: 1449 Specimen Inquiry RUN USER: INTERFACE SPEC #: [id number] PATIENT: MICHELLE GARCIA #[id number] (Continued) Signed Morgan Stanton 06/22/18 1308 END OF REPORT [[facility]] CULTURE, URINE, [id number] 17:00:01 Test Item Value Reference Range Interpretation Comments FINAL REPORT (test <10,000 CFU/mL Group B code = FINAL Streptococcus Isolated REPORT) [facility][O] Urine Dipstick (In Office)2018-04-20 16:24:00 Test Item Value Reference Range Interpretation Comments LEUKOCYTES (test code = LEUKOCYTES) 2+ A NITRITE; Normal (test code = 61341-0) neg N UROBILINOGEN; Normal (test code = 0.2 N 57089-3) PROTEIN; Normal (test code = 39809-2) neg N pH (test code = pH) 6.0 N URINE BLOOD; Abnormal (test code = 2+ A 02526-5) SPECIFIC GRAVITY; Normal (test code = <=1.005 N 2965-2) KETONES; Normal (test code = 16663-4) neg N BILIRUBIN; Normal (test code = neg N 26497-8) GLUCOSE; Normal (test code = 1547-9) neg N [facility] Bladder Cystourethrogram voiding [id number] 10:30:00 HISTORY: N82.0 Vesicovaginal fistula - N82.0 Vesicovaginal fistulaTECHNIQUE: Cystogram was performedunder fluoroscopic guidance usingCystografin.COMPARISON: Study dated 03/19/2018.FINDINGS: Insurance Administrator viewof the pelvis was grossly unremarkable.Patient arrived to the imaging suite with urinary catheter already in place.She was placed in the right lateral decubitus position on the examinationtable.The bladder was filled with approximately 200 mL of Cystografin. Extravasationwas again seen along the dorsal aspect of the bladder into the vaginal canal.Total fluoroscopy time was 1.5 minutes; 5 fluoroscopic images were obtained.IMPRESSION: Persistent vesicovaginal fistula as above.[id number]--Qkld by: Orestes Elliott MDDictated Date/time: 04/09/18 11:39Electronically Signed by: Orestes Elliott MD 04/09/1811:43FINAL REPORTUT [facility] Bladder Cystourethrogram voiding [id number] 09:23:00 EXAM:Voiding Cystourethrogram (VCUG).CLINICAL HX: N82.0 Vesicovaginal fistula, Post-operative state - N82.0 Vesicovaginalfistula, Post-operative state. Age: 38 years.Gender: Female.TECHNIQUE:Using a Sales catheter which was ordered in place when patient arrived, 475 ccof Cystografin 30% contrast were instilled retrograde by gravity.Fluoroscopic time: 2.3 minute(s).Number of images: 10.COMPARISON:CT abdomen and pelvis: 02/14/2018.FINDINGS:Insurance Administrator: Unremarkable.Urinary bladder:-- Contour: When the bladder was full, there was extravasation along the dorsalaspect which then traveled inferiorly suggestiveof persistent vesicovaginalfistula. Patient reported a sensation of leaking.-- Postvoid residual: Nosubstantial amount.Urethra: Not well evaluated due to Sales catheterization. Vesicoureteral reflex: Negative.Other: None.Impression:1. Persistent vesicovaginal fistula.Note:Critical results were discussed with Ms. Sanders (nurse for Dr. Tracey) on03/29/2018 10:48 AM CDT over the phone with readback. --Read by: Ronnie Velazquez MDDictated Date/time: 03/29/18 10:56Electronically Signed by: Ronnie Velazquez MD 03/29/1811:00FINAL REPORTUT PhysiciansAdarza [employer] [id number] 07:34:00 Test Item Value Reference Range Interpretation Comments eGFR (test code = eGFR) 112 [facility] [id number] 07:34:00 Test Item Value Reference Range Interpretation Comments CO2 (test code = CO2) 25 24-32 [facility]2014-10-25 07:34:00 Test Item Value Reference Range Interpretation Comments Calcium Lvl (test code = Calcium Lvl) 7.6 8.5-10.5 [facility]2014-10-25 07:34:00 Test Item Value Reference Range Interpretation Comments Potassium Lvl (test code = Potassium 3.6 3.5-5.1 Lvl) [facility]2014-10-25 07:34:00 Test Item Value Reference Range Interpretation Comments Chloride Lvl (test code = Chloride Lvl) 101 95-109 [facility]2014-10-25 07:34:00 Test Item Value Reference Range Interpretation Comments Sodium Lvl (test code = Sodium Lvl) 136 135-145 [facility]2014-10-25 07:34:00 Test Item Value Reference Range Interpretation Comments BUN (test code = BUN) 9 7-22 [facility]2014-10-25 07:34:00 Test Item Value Reference Range Interpretation Comments Creatinine Lvl (test code = Creatinine 0.7 0.5-1.4 Lvl) [facility]2014-10-25 07:34:00 Test Item Value Reference Range Interpretation Comments Glucose Lvl (test code = Glucose Lvl) 113 70-99 [facility]2014-10-25 07:34:00 Test Item Value Reference Range Interpretation Comments AGAP (test code = AGAP) 13.6 10.0-20.0 [id number] 07:34:00 Test Item Value Reference Range Interpretation Comments Segs-Bands # (test code = Segs-Bands #) 5.2 1.5-8.1 [facility]woodXyiqokzHNERFAARDR0945-66-84 07:34:00 Test Item Value Reference Range Interpretation Comments Lymphocytes # (test code = Lymphocytes 1.1 1.0-5.5 #) [facility]woodHcggxekFYTXAGDZRI3966-72-06 07:34:00 Test Item Value Reference Range Interpretation Comments Monocytes # (test code 0.4 See_Comment [Aut omated message] The = Monocytes #) system which generated this result tra nsmitted reference range : <=0.8. The reference r chip was not used to int erpret this result as normal/abnormal . [facility]woodFgdjkdgSNSRZLUJOA7210-87-59 07:34:00 Test Item Value Reference Range Interpretation Comments Monocytes (test code = Monocytes) 6.2 2.0-12.0 [facility]woodXmdquxwOLHCZVMCBL8073-03-64 07:34:00 Test Item Value Reference Range Interpretation Comments Eosinophils (test code = 0.7 See_Comment [A utomated message] The Eosinophils) system which ge nerated this result tra nsmitted reference range : <=4.0. The reference r chip was not used to int erpret this result as normal/abnormal . [facility]woodNtqffwnIKHNPYQPIQ7663-29-12 07:34:00 Test Item Value Reference Range Interpretation Comments Basophils (test code = 0.4 See_Comment [Aut omated message] The Basophils) system which ge nerated this result tra nsmitted reference range : <=1.0. The reference r chip was not used to int erpret this result as normal/abnormal . [facility]woodHqgwxpkWWBSUHIKKJ8863-31-35 07:34:00 Test Item Value Reference Range Interpretation Comments Lymphocytes (test code = Lymphocytes) 16.0 20.0-40.0 [facility]woodLsvxgdyXHGVMHJYYQ2399-91-86 07:34:00 Test Item Value Reference Range Interpretation Comments Segs (test code = Segs) 76.7 45.0-75.0 [facility]woodPyyvethDEXCOCDCMT5577-97-89 07:34:00 Test Item Value Reference Range Interpretation Comments MPV (test code = MPV) 8.5 7.4-10.4 [facility]woodQbdabvwGITGQZRSBF2148-97-04 07:34:00 Test Item Value Reference Range Interpretation Comments Platelet (test code = Platelet) 251 133-450 [facility]woodInosfgaQMPCMYEPKB0493-55-62 07:34:00 Test Item Value Reference Range Interpretation Comments MCHC (test code = MCHC) 33.0 32.0-36.0 [facility]woodQfibexqPVOYJSPRLF3354-68-95 07:34:00 Test Item Value Reference Range Interpretation Comments RDW (test code = RDW) 15.8 11.5-14.5 [facility]woodHrcfsmeEDLIQPGZCU4692-13-28 07:34:00 Test Item Value Reference Range Interpretation Comments WBC (test code = WBC) 6.7 3.7-10.4 [facility]woodPhhrulsWEFMTNWYPY0410-20-62 07:34:00 Test Item Value Reference Range Interpretation Comments RBC (test code = RBC) 3.39 4.20-5.40 [facility]woodJcslaueRODJODBBOT8282-27-31 07:34:00 Test Item Value Reference Range Interpretation Comments Hgb (test code = Hgb) 10.4 12.0-16.0 [facility]woodVngawdxMSNWKEJQJZ7888-77-67 07:34:00 Test Item Value Reference Range Interpretation Comments MCV (test code = MCV) 92.5 80.0-98.0 [facility]woodKzoygqcNLQMGKVOCC0049-23-91 07:34:00 Test Item Value Reference Range Interpretation Comments Hct (test code = Hct) 31.4 36.0-48.0 [facility]woodJwpptquOFNJIZHYHD3306-49-11 07:34:00 Test Item Value Reference Range Interpretation Comments MCH (test code = MCH) 30.5 pg 27.0-31.0 [facility]2014-10-25 07:34:00 Test Item Value Reference Range Interpretation Comments eGFR (test code = eGFR) 112 [facility]2014-10-25 07:34:00 Test Item Value Reference Range Interpretation Comments CO2 (test code = CO2) 25 24-32 [facility]2014-10-25 07:34:00 Test Item Value Reference Range Interpretation Comments Calcium Lvl (test code = Calcium Lvl) 7.6 8.5-10.5 [facility]2014-10-25 07:34:00 Test Item Value Reference Range Interpretation Comments Potassium Lvl (test code = Potassium 3.6 3.5-5.1 Lvl) [facility]2014-10-25 07:34:00 Test Item Value Reference Range Interpretation Comments Chloride Lvl (test code = Chloride Lvl) 101 95-109 [facility]2014-10-25 07:34:00 Test Item Value Reference Range Interpretation Comments Sodium Lvl (test code = Sodium Lvl) 136 135-145 [facility]2014-10-25 07:34:00 Test Item Value Reference Range Interpretation Comments BUN (test code = BUN) 9 7-22 [facility]2014-10-25 07:34:00 Test Item Value Reference Range Interpretation Comments Creatinine Lvl (test code = Creatinine 0.7 0.5-1.4 Lvl) [facility]2014-10-25 07:34:00 Test Item Value Reference Range Interpretation Comments Glucose Lvl (test code = Glucose Lvl) 113 70-99 [facility]2014-10-25 07:34:00 Test Item Value Reference Range Interpretation Comments AGAP (test code = AGAP) 13.6 10.0-20.0 [facility] KingwoodLorliuqMKCRUHVLHE7022-61-60 07:34:00 Test Item Value Reference Range Interpretation Comments Segs-Bands # (test code = Segs-Bands #) 5.2 1.5-8.1 [facility]woodTkbrmlxLHRMROWROP1304-67-41 07:34:00 Test Item Value Reference Range Interpretation Comments Lymphocytes # (test code = Lymphocytes 1.1 1.0-5.5 #) [facility] KingwoodPelcbolYMJDOOGVJO5137-88-21 07:34:00 Test Item Value Reference Range Interpretation Comments Monocytes # (test code 0.4 See_Comment [Aut omated message] The = Monocytes #) system which generated this result tra nsmitted reference range : <=0.8. The reference r chip was not used to int erpret this result as normal/abnormal . [facility]woodBurrbpyLWZTHOYTKP4003-47-37 07:34:00 Test Item Value Reference Range Interpretation Comments Monocytes (test code = Monocytes) 6.2 2.0-12.0 [facility]woodKffugnrIOOBJLVCBZ6271-53-87 07:34:00 Test Item Value Reference Range Interpretation Comments Eosinophils (test code = 0.7 See_Comment [A utomated message] The Eosinophils) system which ge nerated this result tra nsmitted reference range : <=4.0. The reference r chip was not used to int erpret this result as normal/abnormal . [facility]woodOadfyadCMEIGZSLVR7133-51-81 07:34:00 Test Item Value Reference Range Interpretation Comments Basophils (test code = 0.4 See_Comment [Aut omated message] The Basophils) system which ge nerated this result tra nsmitted reference range : <=1.0. The reference r chip was not used to int erpret this result as normal/abnormal . [facility]woodEfnagknGTGUTYZBER5062-39-40 07:34:00 Test Item Value Reference Range Interpretation Comments Lymphocytes (test code = Lymphocytes) 16.0 20.0-40.0 [facility] KingwoodZciszqvLXXKLUNXNO8008-68-87 07:34:00 Test Item Value Reference Range Interpretation Comments Segs (test code = Segs) 76.7 45.0-75.0 [facility]woodZkytrbhCDZHIIHISO0004-69-65 07:34:00 Test Item Value Reference Range Interpretation Comments MPV (test code = MPV) 8.5 7.4-10.4 [facility] KingwoodVhrygpsCYMZOAQJCC1638-59-15 07:34:00 Test Item Value Reference Range Interpretation Comments Platelet (test code = Platelet) 251 133-450 [facility]woodYcowzxgLZEBBATTJS2420-25-15 07:34:00 Test Item Value Reference Range Interpretation Comments MCHC (test code = MCHC) 33.0 32.0-36.0 [facility] KingwoodZojxmwhTBLQQPWNQZ0585-61-46 07:34:00 Test Item Value Reference Range Interpretation Comments RDW (test code = RDW) 15.8 11.5-14.5 [facility]woodEqzjmpjANVXCVUNUB6822-64-29 07:34:00 Test Item Value Reference Range Interpretation Comments WBC (test code = WBC) 6.7 3.7-10.4 [facility]woodWihnzdbGREBFBRMKA7184-07-48 07:34:00 Test Item Value Reference Range Interpretation Comments RBC (test code = RBC) 3.39 4.20-5.40 [facility]woodVprvkwrWGJTBNFIJI6898-77-35 07:34:00 Test Item Value Reference Range Interpretation Comments Hgb (test code = Hgb) 10.4 12.0-16.0 [facility]woodYbizrfwQTFQODUDMY4856-48-73 07:34:00 Test Item Value Reference Range Interpretation Comments MCV (test code = MCV) 92.5 80.0-98.0 [facility]woodPypqagsFGRFFJETDF9894-51-80 07:34:00 Test Item Value Reference Range Interpretation Comments Hct (test code = Hct) 31.4 36.0-48.0 [facility] KingwoodDpoguefYFATHVSBMS5035-33-01 07:34:00 Test Item Value Reference Range Interpretation Comments MCH (test code = MCH) 30.5 pg 27.0-31.0 [facility] HealthcareXujwxgyRZEXTMGWPZEQ6545-24-40 02:20:00 Test Item Value Reference Range Interpretation Comments BUN (test code = BUN) 13 7-22 [facility] HealthcareDxxrylsGKIWLNZFWBMY2060-26-98 02:20:00 Test Item Value Reference Range Interpretation Comments Calcium Lvl (test code = Calcium Lvl) 8.5 8.5-10.5 [facility] HealthcareHcddivhCWVXXZQXLENZ2521-90-52 02:20:00 Test Item Value Reference Range Interpretation Comments CO2 (test code = CO2) 23 24-32 [facility] HealthcareNnigfexWMUOLHKTPDPR6835-76-47 02:20:00 Test Item Value Reference Range Interpretation Comments Chloride Lvl (test code = Chloride Lvl) 102 95-109 [facility] HealthcareTfcturuYRTGBSZTQMLO2411-33-85 02:20:00 Test Item Value Reference Range Interpretation Comments Potassium Lvl (test code = Potassium 4.0 3.5-5.1 Lvl) [facility] HealthcareYbmygcpQNTXVPDJQALP3250-86-28 02:20:00 Test Item Value Reference Range Interpretation Comments Glucose Lvl (test code = Glucose Lvl) 105 70-99 [facility] KingwoodCyiasvfEREWFETBYM0678-41-89 02:20:00 Test Item Value Reference Range Interpretation Comments Basophils # (test code 0.0 See_Comment [Aut omated message] The = Basophils #) system which generated this result tra nsmitted reference range : <=0.2. The reference r chip was not used to int erpret this result as normal/abnormal . [facility] KingwoodTsokwqoOITVZCFYUP8878-27-36 02:20:00 Test Item Value Reference Range Interpretation Comments Eosinophils # (test code 0.2 See_Comment [A utomated message] The = Eosinophils #) system whic h generated this result tra nsmitted reference range : <=0.5. The reference r chip was not used to int erpret this result as normal/abnormal . [facility] KingwoodBrefghgCHGRXBLMLD7578-94-57 02:20:00 Test Item Value Reference Range Interpretation Comments Monocytes # (test code 0.8 See_Comment [Aut omated message] The = Monocytes #) system which generated this result tra nsmitted reference range : <=0.8. The reference r chip was not used to int erpret this result as normal/abnormal . [facility] KingwoodMtpzgobCWTUGDYGIG8153-76-74 02:20:00 Test Item Value Reference Range Interpretation Comments Lymphocytes # (test code = Lymphocytes 0.9 1.0-5.5 #) [facility] KingwoodAjokgskPTMGLLGEZR6407-96-80 02:20:00 Test Item Value Reference Range Interpretation Comments Segs-Bands # (test code = Segs-Bands #) 10.0 1.5-8.1 [facility] KingwoodHzioauwEKWRDGYSDZ9560-78-52 02:20:00 Test Item Value Reference Range Interpretation Comments Basophils (test code = 0.2 See_Comment [Aut omated message] The Basophils) system which ge nerated this result tra nsmitted reference range : <=1.0. The reference r chip was not used to int erpret this result as normal/abnormal . [facility]woodPhmwioeEEBCHRDRNI0918-62-82 02:20:00 Test Item Value Reference Range Interpretation Comments Eosinophils (test code = 1.4 See_Comment [A utomated message] The Eosinophils) system which ge nerated this result tra nsmitted reference range : <=4.0. The reference r chip was not used to int erpret this result as normal/abnormal . [facility]woodWjrirrgGFDFTPIVLB1610-96-71 02:20:00 Test Item Value Reference Range Interpretation Comments Monocytes (test code = Monocytes) 6.8 2.0-12.0 [facility]woodPalskcqLIOXODEUQU4940-42-16 02:20:00 Test Item Value Reference Range Interpretation Comments Lymphocytes (test code = Lymphocytes) 7.6 20.0-40.0 [facility]woodWtblehjDVPLEHSJOQ6106-72-48 02:20:00 Test Item Value Reference Range Interpretation Comments Segs (test code = Segs) 84.0 45.0-75.0 [facility]woodMpvdudkJGBVJNLKQM1625-30-31 02:20:00 Test Item Value Reference Range Interpretation Comments RBC Morph (test code = Normal (08/08/14 9:20 RBC Morph) PM) [facility] KingwoodMicqvleFVKMGWGQHV0201-42-80 02:20:00 Test Item Value Reference Range Interpretation Comments Plt Morph (test code = Normal (08/08/14 9:20 Plt Morph) PM) [facility] KingwoodZgxbzmvDTCQOCDWPB5875-17-97 02:20:00 Test Item Value Reference Range Interpretation Comments Rapid TEG Sample Type Citrated Whole Blood (test code = Rapid TEG Sample Type) [facility] KingwoodTlgbyasLPFFRFHMSK0958-94-79 02:20:00 Test Item Value Reference Range Interpretation Comments G-value (test code = G-value) 8.8 5.0-11.6 [facility] KingwoodSrvsxxdPCJBPSOJYG3816-60-06 02:20:00 Test Item Value Reference Range Interpretation Comments R-time (test code = R-time) 0.7 min 0.4-0.7 [facility]woodPwfxgjvQJVUJRVCLF4757-42-92 02:20:00 Test Item Value Reference Range Interpretation Comments Split Point (test code = Split Point) 0.5 min [facility]woodEkdlkvxNXAMMOKGRG7126-67-10 02:20:00 Test Item Value Reference Range Interpretation Comments ACT (TEG) (test code = ACT (TEG)) 113 s 86-118 [facility] KingwoodFofhzknFJGTZZHZST0898-58-65 02:20:00 Test Item Value Reference Range Interpretation Comments Max Amp (test code = Max Amp) 64 mm 52-71 [facility] KingwoodUqpsncfHRZHQONDBQ9043-34-06 02:20:00 Test Item Value Reference Range Interpretation Comments Angle (test code = Angle) 78 degrees 64-80 [facility] KingwoodEryajrtOEOPNAFYDQ7497-02-73 02:20:00 Test Item Value Reference Range Interpretation Comments K-time (test code = K-time) 0.9 min 0.6-2.3 [facility] KingwoodEhvcbymCLVSVOMBEN3750-49-46 02:20:00 Test Item Value Reference Range Interpretation Comments Estimated % Lysis (test 1.1 See_Comment [Au tomated message] The code = Estimated % system wh ich generated Lysis) this result tra nsmitted reference range : <=7.5. The reference r chip was not used to int erpret this result as normal/abnormal . [facility]NvpauepJXSYWWOIPN1313-88-53 02:20:00 Test Item Value Reference Range Interpretation Comments Platelet (test code = Platelet) 303 133-450 [facility]woodQivpyhaLJWVQRZRBK8706-18-86 02:20:00 Test Item Value Reference Range Interpretation Comments RDW (test code = RDW) 14.9 11.5-14.5 [facility]woodEyevjiuKZWHUKXRAC2833-85-19 02:20:00 Test Item Value Reference Range Interpretation Comments MCHC (test code = MCHC) 33.0 32.0-36.0 [facility]woodTkgglaqIGSSOCCIQN0232-78-21 02:20:00 Test Item Value Reference Range Interpretation Comments MCH (test code = MCH) 29.8 pg 27.0-31.0 [facility]woodRmijzcuEFXAEPMKPQ8404-84-29 02:20:00 Test Item Value Reference Range Interpretation Comments Hct (test code = Hct) 34.0 36.0-48.0 [facility]woodRwanoocIMGARUCZNX9702-74-12 02:20:00 Test Item Value Reference Range Interpretation Comments MCV (test code = MCV) 90.2 80.0-98.0 [facility]woodXeprbxrEBYBSATPAF4311-45-98 02:20:00 Test Item Value Reference Range Interpretation Comments RBC (test code = RBC) 3.76 4.20-5.40 [facility]woodUnyrxidPAURZSAMMO0489-51-21 02:20:00 Test Item Value Reference Range Interpretation Comments Hgb (test code = Hgb) 11.2 12.0-16.0 [facility]woodRxmqlgmTYKAKIZKLO3167-20-38 02:20:00 Test Item Value Reference Range Interpretation Comments WBC (test code = WBC) 11.9 3.7-10.4 [facility]woodAtowoczKSSYOEDAUY2995-93-86 02:20:00 Test Item Value Reference Range Interpretation Comments MPV (test code = MPV) 7.9 7.4-10.4 [place] [id number] 02:20:00 Test Item Value Reference Range Interpretation Comments Ethanol Lvl (test code = Ethanol Lvl) no [facility]JGRSXYO7696[facility]71-[facility] 02:20:00 Test Item Value Reference Range Interpretation Comments Etoh (%) (test code = Etoh (%)) no [facility]2014-10-25 02:20:00 Test Item Value Reference Range Interpretation Comments WBC (test code = WBC) 11.9 3.7-10.4 [facility]woodQfgtaouBOEUNVAWAK0555-14-87 02:20:00 Test Item Value Reference Range Interpretation Comments MPV (test code = MPV) 7.9 7.4-10.4 [place] [id number] 02:20:00 Test Item Value Reference Range Interpretation Comments Ethanol Lvl (test code = Ethanol Lvl) no [facility]UrwuqxcBQJFHVLPFG0152-84-46 02:20:00 Test Item Value Reference Range Interpretation Comments Etoh (%) (test code = Etoh (%)) no [facility]2014-10-25 02:20:00 Test Item Value Reference Range Interpretation Comments Lactic Acid Lvl (test code = Lactic 1.4 0.5-2.2 Acid Lvl) [facility] ResourcesPigttdoRGIPYLKUCGIL2524-31-17 02:20:00 Test Item Value Reference Range Interpretation Comments AGAP (test code = AGAP) 15.0 10.0-20.0 [facility] HealthcareLznaxebMIWRVWVFLXPY6556-41-75 02:20:00 Test Item Value Reference Range Interpretation Comments eGFR (test code = eGFR) 55 [facility] HealthcareOglwyhiVWIFXCDVRWBY5369-52-30 02:20:00 Test Item Value Reference Range Interpretation Comments Sodium Lvl (test code = Sodium Lvl) 136 135-145 [facility] HealthcareZwctycaVRUWDVTJYYAF2738-36-25 02:20:00 Test Item Value Reference Range Interpretation Comments Creatinine Lvl (test code = Creatinine 0.8 0.5-1.4 Lvl) [facility] HealthcareSsyoesyUUUFNWMLSZYJ3570-53-41 02:20:00 Test Item Value Reference Range Interpretation Comments BUN (test code = BUN) 13 7-22 [facility] HealthcareSqffzbzECHKTLDYLSML3048-71-29 02:20:00 Test Item Value Reference Range Interpretation Comments Calcium Lvl (test code = Calcium Lvl) 8.5 8.5-10.5 [facility] HealthcareUzyfsvyEXNQRZQEEMNW6087-37-21 02:20:00 Test Item Value Reference Range Interpretation Comments CO2 (test code = CO2) 23 24-32 [facility] HealthcareBszeobcYWJFTGTOSLHI9602-59-11 02:20:00 Test Item Value Reference Range Interpretation Comments Chloride Lvl (test code = Chloride Lvl) 102 95-109 [facility] HealthcareRlhqbxmHBKXYOKELMED1290-00-43 02:20:00 Test Item Value Reference Range Interpretation Comments Potassium Lvl (test code = Potassium 4.0 3.5-5.1 Lvl) [facility] HealthcareNpxjpejMIMMANKEVTIP7460-82-10 02:20:00 Test Item Value Reference Range Interpretation Comments Glucose Lvl (test code = Glucose Lvl) 105 70-99 [facility]woodZmgounkQHEQSMPTUO5256-32-79 02:20:00 Test Item Value Reference Range Interpretation Comments Basophils # (test code 0.0 See_Comment [Aut omated message] The = Basophils #) system which generated this result tra nsmitted reference range : <=0.2. The reference r chip was not used to int erpret this result as normal/abnormal . [facility]woodAufmdyaOFSVHMNBPZ8158-32-80 02:20:00 Test Item Value Reference Range Interpretation Comments Eosinophils # (test code 0.2 See_Comment [A utomated message] The = Eosinophils #) system whic h generated this result tra nsmitted reference range : <=0.5. The reference r chip was not used to int erpret this result as normal/abnormal . [facility]woodVjwhqltSNEDWOTKJX2503-44-01 02:20:00 Test Item Value Reference Range Interpretation Comments Monocytes # (test code 0.8 See_Comment [Aut omated message] The = Monocytes #) system which generated this result tra nsmitted reference range : <=0.8. The reference r chip was not used to int erpret this result as normal/abnormal . [facility]woodUsrhjsgVGKDAMRWEC7023-38-75 02:20:00 Test Item Value Reference Range Interpretation Comments Lymphocytes # (test code = Lymphocytes 0.9 1.0-5.5 #) [facility]woodJvargjuQHEOPVXVSN0014-31-33 02:20:00 Test Item Value Reference Range Interpretation Comments Segs-Bands # (test code = Segs-Bands #) 10.0 1.5-8.1 [facility]woodOxkxjkpSQBCTXWDVB6933-98-96 02:20:00 Test Item Value Reference Range Interpretation Comments Basophils (test code = 0.2 See_Comment [Aut omated message] The Basophils) system which ge nerated this result tra nsmitted reference range : <=1.0. The reference r chip was not used to int erpret this result as normal/abnormal . [facility]woodMyaqvleIBSEDQJQSH3066-35-55 02:20:00 Test Item Value Reference Range Interpretation Comments Eosinophils (test code = 1.4 See_Comment [A utomated message] The Eosinophils) system which ge nerated this result tra nsmitted reference range : <=4.0. The reference r chip was not used to int erpret this result as normal/abnormal . [facility]woodPjomxzqMEYDFJGXUC5687-32-94 02:20:00 Test Item Value Reference Range Interpretation Comments Monocytes (test code = Monocytes) 6.8 2.0-12.0 [facility]woodSmrgawjJHLPLEOTZC5729-25-95 02:20:00 Test Item Value Reference Range Interpretation Comments Lymphocytes (test code = Lymphocytes) 7.6 20.0-40.0 [facility]woodJiehulhPRGVLSSWMF8846-25-36 02:20:00 Test Item Value Reference Range Interpretation Comments Segs (test code = Segs) 84.0 45.0-75.0 [facility]woodFtbydvrLRDLTPIMDT0813-43-47 02:20:00 Test Item Value Reference Range Interpretation Comments RBC Morph (test code = Normal (08/08/14 9:20 RBC Morph) PM) [facility]woodVjfiwpcUVGRSFVFHL0104-46-83 02:20:00 Test Item Value Reference Range Interpretation Comments Plt Morph (test code = Normal (08/08/14 9:20 Plt Morph) PM) [facility]woodBgdyitiGJRSEOPDJL7007-77-54 02:20:00 Test Item Value Reference Range Interpretation Comments Rapid TEG Sample Type Citrated Whole Blood (test code = Rapid TEG Sample Type) [facility]woodUxfnmkpKGYCDBXRES8591-05-76 02:20:00 Test Item Value Reference Range Interpretation Comments G-value (test code = G-value) 8.8 5.0-11.6 [facility]woodLdjbtivJGZEXMZKNN4686-81-16 02:20:00 Test Item Value Reference Range Interpretation Comments R-time (test code = R-time) 0.7 min 0.4-0.7 [facility]woodCadwccgMBAYVJKFBQ1001-40-50 02:20:00 Test Item Value Reference Range Interpretation Comments Split Point (test code = Split Point) 0.5 min [facility]woodXjwpkwfDBXCXCHENX4381-57-46 02:20:00 Test Item Value Reference Range Interpretation Comments ACT (TEG) (test code = ACT (TEG)) 113 s 86-118 [facility]woodXpojagbBZHPHZBLFD7458-77-56 02:20:00 Test Item Value Reference Range Interpretation Comments Max Amp (test code = Max Amp) 64 mm 52-71 [facility]woodFahjhxlKYHJAFYUQR5051-46-63 02:20:00 Test Item Value Reference Range Interpretation Comments Angle (test code = Angle) 78 degrees 64-80 [facility]woodUhugjxwEBWHBKGIEV2709-40-34 02:20:00 Test Item Value Reference Range Interpretation Comments K-time (test code = K-time) 0.9 min 0.6-2.3 [facility]woodWbmgnxoMTBEOMHDJI9075-78-80 02:20:00 Test Item Value Reference Range Interpretation Comments Estimated % Lysis (test 1.1 See_Comment [Au tomated message] The code = Estimated % system wh ich generated Lysis) this result tra nsmitted reference range : <=7.5. The reference r chip was not used to int erpret this result as normal/abnormal . [facility]woodYywehjeQXRUQITPOQ2437-39-29 02:20:00 Test Item Value Reference Range Interpretation Comments Platelet (test code = Platelet) 303 133-450 [facility]woodOfqpjskTGSBRUKGQH7843-01-51 02:20:00 Test Item Value Reference Range Interpretation Comments RDW (test code = RDW) 14.9 11.5-14.5 [facility]woodJekzoxrFEYEAVOYIU1563-28-12 02:20:00 Test Item Value Reference Range Interpretation Comments MCHC (test code = MCHC) 33.0 32.0-36.0 [facility]woodAvvgoirTKJHKBMJYV1149-53-89 02:20:00 Test Item Value Reference Range Interpretation Comments MCH (test code = MCH) 29.8 pg 27.0-31.0 [facility]woodOzyaimwYQWJUFIDJQ6556-34-69 02:20:00 Test Item Value Reference Range Interpretation Comments Hct (test code = Hct) 34.0 36.0-48.0 [facility]woodTuqnuccBICGIFIANQ7534-79-06 02:20:00 Test Item Value Reference Range Interpretation Comments MCV (test code = MCV) 90.2 80.0-98.0 [facility]woodCtmfxxqYGDAEEMTTL6471-08-78 02:20:00 Test Item Value Reference Range Interpretation Comments RBC (test code = RBC) 3.76 4.20-5.40 [facility]woodAutzaopBPTJYJYLOX3239-07-46 02:20:00 Test Item Value Reference Range Interpretation Comments Hgb (test code = Hgb) 11.2 12.0-16.0 [facility]2014-10-25 02:20:00 Test Item Value Reference Range Interpretation Comments Lactic Acid Lvl (test code = Lactic 1.4 0.5-2.2 Acid Lvl) [facility] HealthcareDgyebgmLJTUYDSYRHLI4803-57-31 02:20:00 Test Item Value Reference Range Interpretation Comments AGAP (test code = AGAP) 15.0 10.0-20.0 [facility] HealthcareAemprcyTPHDPPMDRKIH7446-34-75 02:20:00 Test Item Value Reference Range Interpretation Comments eGFR (test code = eGFR) 55 [facility] HealthcareIwmzfraLHBLJYLYWMWC8952-47-91 02:20:00 Test Item Value Reference Range Interpretation Comments Sodium Lvl (test code = Sodium Lvl) 136 135-145 [facility] HealthcareCouecngNGNANLIBTCCN4328-30-10 02:20:00 Test Item Value Reference Range Interpretation Comments Creatinine Lvl (test code = Creatinine 0.8 0.5-1.4 Lvl) [facility] [id number] 01:24:00 Test Item Value Reference Range Interpretation Comments U Alcohol (test code = Negative *NA*(08/08/14 U Alcohol) 8:24 PM) [facility] [id number] 01:24:00 Test Item Value Reference Range Interpretation Comments U Opiate Scr (test Positive *ABN*(08/08/14 code = U Opiate Scr) 8:24 PM) [facility] [id number] 01:24:00 Test Item Value Reference Range Interpretation Comments U Phencyc Scr (test Negative *NA*(08/08/14 code = U Phencyc Scr) 8:24 PM) [facility] [id number] 01:24:00 Test Item Value Reference Range Interpretation Comments UDS Note (test code = See Note 5(08/08/14 UDS Note) 8:24 PM) [facility] [id number] 01:24:00 Test Item Value Reference Range Interpretation Comments U Cannab Scr (test Positive *ABN*(08/08/14 code = U Cannab Scr) 8:24 PM) [facility] [id number] 01:24:00 Test Item Value Reference Range Interpretation Comments U Renetta Scr (test code Negative *NA*(08/08/14 = U Renetta Scr) 8:24 PM) [facility] [id number] 01:24:00 Test Item Value Reference Range Interpretation Comments U Benzodia Scr (test Positive code = U Benzodia Scr) *ABN*(08/08/14 8:24 PM) [facility] [id number] 01:24:00 Test Item Value Reference Range Interpretation Comments U Alcohol (test code = Negative *NA*(08/08/14 U Alcohol) 8:24 PM) [facility] [id number] 01:24:00 Test Item Value Reference Range Interpretation Comments U Opiate Scr (test Positive *ABN*(08/08/14 code = U Opiate Scr) 8:24 PM) [facility] [id number] 01:24:00 Test Item Value Reference Range Interpretation Comments U Phencyc Scr (test Negative *NA*(08/08/14 code = U Phencyc Scr) 8:24 PM) [facility] [id number] 01:24:00 Test Item Value Reference Range Interpretation Comments UDS Note (test code = See Note 5(08/08/14 UDS Note) 8:24 PM) [facility] [id number] 01:24:00 Test Item Value Reference Range Interpretation Comments U Cannab Scr (test Positive *ABN*(08/08/14 code = U Cannab Scr) 8:24 PM) [facility] [id number] 01:24:00 Test Item Value Reference Range Interpretation Comments U Renetta Scr (test code Negative *NA*(08/08/14 = U Renetta Scr) 8:24 PM) [facility] [id number] 01:24:00 Test Item Value Reference Range Interpretation Comments U Cocaine Scr (test Negative *NA*(08/08/14 code = U Cocaine Scr) 8:24 PM) [facility] [id number] 01:24:00 Test Item Value Reference Range Interpretation Comments U Benzodia Scr (test Positive code = U Benzodia Scr) *ABN*(08/08/14 8:24 PM) [facility] [id number] 01:24:00 Test Item Value Reference Range Interpretation Comments U Cocaine Scr (test Negative *NA*(08/08/14 code = U Cocaine Scr) 8:24 PM) [facility] [id number] 01:24:00 Test Item Value Reference Range Interpretation Comments U Amph Scr (test code Negative *NA*(08/08/14 = U Amph Scr) 8:24 PM) [facility] [id number] 01:24:00 Test Item Value Reference Range Interpretation Comments UA Urobilinogen (test code = UA <=1.0 mg/dL 0.1-1.0 Urobilinogen) [facility] [id number] 01:24:00 Test Item Value Reference Range Interpretation Comments UA Spec Grav (test >=1.050 *ABN*(08/08/14 code = UA Spec Grav) 8:24 PM) [facility] [id number] 01:24:00 Test Item Value Reference Range Interpretation Comments UA Bili (test code = Negative *NA*(08/08/14 UA Bili) 8:24 PM) [facility] [id number] 01:24:00 Test Item Value Reference Range Interpretation Comments UA Color (test code = Yellow *NA*(08/08/14 UA Color) 8:24 PM) [facility] [id number] 01:24:00 Test Item Value Reference Range Interpretation Comments UA Nitrite (test code Negative (08/08/14 8:24 = UA Nitrite) PM) [facility] [id number] 01:24:00 Test Item Value Reference Range Interpretation Comments UA Blood (test code = Negative (08/08/14 8:24 UA Blood) PM) [facility] [id number] 01:24:00 Test Item Value Reference Range Interpretation Comments UA Turbidity (test code = Clear (08/08/14 8:24 UA Turbidity) PM) [facility] [id number] 01:24:00 Test Item Value Reference Range Interpretation Comments UA Protein (test code = UA Protein) 20 mg/dL [facility] [id number] 01:24:00 Test Item Value Reference Range Interpretation Comments UA pH (test code = UA pH) 6.0 5.0-8.0 [facility] [id number] 01:24:00 Test Item Value Reference Range Interpretation Comments UA Ketones (test code = UA Ketones) 10 mg/dL [facility] [id number] 01:24:00 Test Item Value Reference Range Interpretation Comments UA Glucose (test code = UA Negative mg/dL Glucose) [facility] [id number] 01:24:00 Test Item Value Reference Range Interpretation Comments UA Bacteria (test code = UA Occasional /HPF Bacteria) [facility] [id number] 01:24:00 Test Item Value Reference Range Interpretation Comments UA Sq Epi (test code = UA Sq Epi) Many /LPF [facility] [id number] 01:24:00 Test Item Value Reference Range Interpretation Comments U Amph Scr (test code Negative *NA*(08/08/14 = U Amph Scr) 8:24 PM) [facility] [id number] 01:24:00 Test Item Value Reference Range Interpretation Comments UA Leuk Est (test Negative (08/08/14 8:24 code = UA Leuk Est) PM) [facility] AND [id number] 01:24:00 Test Item Value Reference Range Interpretation Comments UA WBC (test code = 1 See_Comment [Automa madina message] The UA WBC) system which ge nerated this result transmit madina reference range : <=5. The reference range was not used to interpr et this result as laura l/abnormal. [facility] AND [id number] 01:24:00 Test Item Value Reference Range Interpretation Comments UA RBC (test code = 1 See_Comment [Automa madina message] The UA RBC) system which ge nerated this result transmit madina reference range : <=2. The reference range was not used to interpr et this result as laura l/abnormal. [facility] AND [id number] 01:24:00 Test Item Value Reference Range Interpretation Comments UA Urobilinogen (test code = UA <=1.0 mg/dL 0.1-1.0 Urobilinogen) [facility] AND [id number] 01:24:00 Test Item Value Reference Range Interpretation Comments UA Spec Grav (test >=1.050 *ABN*(08/08/14 code = UA Spec Grav) 8:24 PM) [facility] AND [id number] 01:24:00 Test Item Value Reference Range Interpretation Comments UA Bili (test code = Negative *NA*(08/08/14 UA Bili) 8:24 PM) [facility] AND [id number] 01:24:00 Test Item Value Reference Range Interpretation Comments UA Color (test code = Yellow *NA*(08/08/14 UA Color) 8:24 PM) [facility] AND [id number] 01:24:00 Test Item Value Reference Range Interpretation Comments UA Nitrite (test code Negative (08/08/14 8:24 = UA Nitrite) PM) [facility] AND [id number] 01:24:00 Test Item Value Reference Range Interpretation Comments UA Blood (test code = Negative (08/08/14 8:24 UA Blood) PM) [facility] AND [id number] 01:24:00 Test Item Value Reference Range Interpretation Comments UA Turbidity (test code = Clear (08/08/14 8:24 UA Turbidity) PM) [facility] AND [id number] 01:24:00 Test Item Value Reference Range Interpretation Comments UA Protein (test code = UA Protein) 20 mg/dL [facility] AND [id number] 01:24:00 Test Item Value Reference Range Interpretation Comments UA pH (test code = UA pH) 6.0 5.0-8.0 [facility] AND [id number] 01:24:00 Test Item Value Reference Range Interpretation Comments UA Ketones (test code = UA Ketones) 10 mg/dL [facility] AND [id number] 01:24:00 Test Item Value Reference Range Interpretation Comments UA Glucose (test code = UA Negative mg/dL Glucose) [facility] AND [id number] 01:24:00 Test Item Value Reference Range Interpretation Comments UA Bacteria (test code = UA Occasional /HPF Bacteria) [facility] AND [id number] 01:24:00 Test Item Value Reference Range Interpretation Comments UA Sq Epi (test code = UA Sq Epi) Many /LPF [facility] AND [id number] 01:24:00 Test Item Value Reference Range Interpretation Comments UA Leuk Est (test Negative (08/08/14 8:24 code = UA Leuk Est) PM) [facility] AND [id number] 01:24:00 Test Item Value Reference Range Interpretation Comments UA WBC (test code = 1 See_Comment [Automa madina message] The UA WBC) system which ge nerated this result transmit madina reference range : <=5. The reference range was not used to interpr et this result as laura l/abnormal. [facility] AND [id number] 01:24:00 Test Item Value Reference Range Interpretation Comments UA RBC (test code = 1 See_Comment [Automa madina message] The UA RBC) system which ge nerated this result transmit madina reference range : <=2. The reference range was not used to interpr et this result as laura l/abnormal. [facility] [id number] 01:00:00 Test Item Value Reference Range Interpretation Comments Antibody Scrn (test Negative (08/08/14 code = Antibody Scrn) 8:00 PM) [facility] [id number] 01:00:00 Test Item Value Reference Range Interpretation Comments ABO/Rh (test code = ABO/Rh) AB POS [facility] [id number] 01:00:00 Test Item Value Reference Range Interpretation Comments Antibody Scrn (test Negative (08/08/14 code = Antibody Scrn) 8:00 PM) [facility] [id number] 01:00:00 Test Item Value Reference Range Interpretation Comments ABO/Rh (test code = ABO/Rh) AB POS [employer]
[2022-06-24 21:07] LABS: Absolute Lymphocytes (CBC) 1.9 K/uL (0.7-4.9); Hematocrit 23.5 % (36.0-45.0); Lymphocytes % 22.2 % (15.3-44.8); MCV 64.2 fL (80-100); MPV 6.9 fL (7.6-11.3); RBC Red Blood Cell Count 3.66 M/uL (3.86-4.86)
[2022-06-24 21:22] LABS: Potassium 3.7 mmol/L (3.5-5.1); Troponin High Sensitivity 6.3 pg/mL (<58.9)
--- NOTE | 2022-06-24 21:41 | RAD REPORT ---
EXAM DESCRIPTION: CT - Chest For Pe Angio - 06/24/2022 9:08 pm CLINICAL HISTORY: COVID+, syncope, rule out PE COMPARISON: No comparisonsNo comparisons TECHNIQUE: Dynamically enhanced axial 3 mm thick images of the chest were obtained during administra tion of <100> mL Isovue 370 IV contrast. Coronal and oblique reconstruction images were generated and reviewed. Exam utilizes a protocol for optimal evaluation of pulmonary arterial tree. Maximum intensity projections 3D imaging was utilized All CT scans are performed using dose optimization technique as appropriate and may include automated exposure control or mA/KV adjustment according to patient size. FINDINGS: Chest Wall: No suspicious thyroid nodules or pathologic lymphadenopathy. Lungs: No acute abnormality. Pleura: No significant effusions or pneumothorax. Mediastinum/claudia: No pathologic lymphadenopathy. Circumferential thickened distal esophagus. Pulmonary arteries/Aorta: No filling defect identified. No aortic aneurysm. Heart: No significant pericardial effusion. Normal heart size. Upper abdomen: No acute abnormality.Gastric bypass. Bones: No acute abnormality. IMPRESSION: Negative for pulmonary embolism. No acute findings within the chest.
--- NOTE | 2022-06-24 21:43 | RAD REPORT ---
EXAM DESCRIPTION: CT - CTHCSPWOC - 06/24/2022 9:05 pm CLINICAL HISTORY: Trauma, head and neck injury. syncope, fall, head and neck injury COMPARISON: No comparisons TECHNIQUE: Axial 5 mm thick images of the head were obtained. Axial 2 mm thick images of the cervical spine were obtained with sagittal and coronal reconstruction images generated and reviewed. All CT scans are performed using dose optimization technique as appropriate and may include automated exposure control or mA/KV adjustment according to patient size. FINDINGS: CT HEAD WITHOUT CONTRAST: No acute hemorrhage, hydrocephalus or extra-axial collection is identified.No areas of brain edema or midline shift. Chronic mucoperiosteal thickening is noted. No mastoid effusion.The calvarium is intact. CT CERVICAL SPINE WITHOUT CONTRAST: No fracture or subluxation.No prevertebral soft tissues swelling is identified. IMPRESSION: No acute intracranial or cervical spine findings.
--- NOTE | 2022-06-24 22:01 | RAD REPORT ---
EXAM DESCRIPTION: Marita Single View06/24/2022 8:20 pm CLINICAL HISTORY: cough COMPARISON: 2020 FINDINGS: The lungs appear clear of acute infiltrate. The heart is normal size IMPRESSION: No acute abnormalities displayed
[2022-06-24 22:16] LABS: Blood Morphology Comment NOTED (NOT SEEN); Hypochromasia 1+; Platelet Estimate INCR; White Blood Cell Scan OK (OK)
--- NOTE | 2022-06-24 22:22 | EDPHYS ---
Physician Documentation [facility] Name: Livier Brown Age: 42 yrs Sex: Female : 1980 Arrival Date: 06/24/2022 Time: 20:04 Bed 14 Private MD: ED Physician Ronny Malcolm HPI: 06/24 20:44 This 42 yrs old Female presents to ER via EMS with complaints of syncope. rn 20:44 The patient has experienced syncope, collapsed. Onset: The symptoms/episode rn began/occurred just prior to arrival. Duration: This was a single episode. Associated injury: Head/face: right cheek, contusion. The patient has not experienced similar symptoms in the past. The patient has been recently seen by a physician:. Pt reports COVID + today, has been having headache, ear pain, cough, sore throat, sob for a few days, given abx and steroids by physician. Has asthma and reports increase use of rescue inhaler lately. Passed out prior to arrival, nothing feels broken, but did hit right side of head and reports headache/neck pain. Reports generalized muscle aches but no extremity injury. . Historical: - Allergies: 20:14 No Known Allergies; ja4 - Immunization history:: Adult Immunizations up to date. - Family history:: not pertinent. - Hospitalizations: : No recent hospitalization is reported. ROS: 20:44 Constitutional: Negative for fever, chills, and weight loss, Eyes: Negative for injury, rn pain, redness, and discharge, ENT: + ear pain and sore throat Neck: + neck pain Cardiovascular: Negative for chest pain, palpitations, and edema, Respiratory: + cough and sob Abdomen/GI: Negative for abdominal pain, nausea, vomiting, diarrhea, and constipation, Back: Negative for injury and pain, : Negative for injury, bleeding, discharge, and swelling, MS/Extremity: Negative for injury and deformity, Skin: Negative for injury, rash, and discoloration, Neuro: Negative for numbness, tingling, and seizure. Exam: 20:44 Constitutional: This is a well developed, well nourished patient who is awake, alert, rn and in no acute distress. Head/Face: Normocephalic, ocntusion right side of head/face, no hematoma or open wounds Eyes: Periorbital areas with no swelling, redness, or edema. ENT: dry MM Cardiovascular: Tachycardic, regular. No pulse deficits. Respiratory: No increased work of breathing, no retractions or nasal flaring. Abdomen/GI: soft, non-tender Back: No spinal tenderness. No costovertebral tenderness. Full range of motion. Skin: Warm, dry with normal turgor. Normal color with no rashes, no lesions, and no evidence of cellulitis. MS/ Extremity: Pulses equal, no cyanosis. Neurovascular intact. Full, normal range of motion. Equal circumference. Neuro: Awake and alert, GCS 15, oriented to person, place, time, and situation. Cranial nerves II-XII grossly intact. Motor strength 4/5 in all extremities. Sensory grossly intact. 20:48 ECG was reviewed by the Attending Physician. rn Vital Signs: 20:11 BP 155 / 77; Pulse 120; Resp 14; Pulse Ox 100% on R/A; Weight 68.04 kg; Height 5 ft. 1 ja4 in. (154.94 cm); Pain 8/10; 20:14 BP 155 / 77; Pulse 120; Resp 14; Pulse Ox 100% on R/A; ja4 22:21 BP 143 / 77; rn 22:21 Pulse 89; rn 22:33 BP 143 / 77; Pulse 96; Resp 14; Pulse Ox 100% on R/A; ja4 20:11 Body Mass Index 28.34 (68.04 kg, 154.94 cm) ja4 MDM: 20:04 Patient medically screened. rn 22:20 Differential Diagnosis: vasovagal episode, dehydration, viral syndrome, COVID, PE. Data rn reviewed: vital signs, nurses notes, lab test result(s), EKG, radiologic studies, CT scan, plain films, and as a result, I will discharge patient. Counseling: I had a detailed discussion with the patient and/or guardian regarding: the historical points, exam findings, and any diagnostic results supporting the discharge/admit diagnosis, lab results, radiology results, the need for outpatient follow up, to return to the emergency department if symptoms worsen or persist or if there are any questions or concerns that arise at home. Response to treatment: the patient's symptoms have markedly improved after treatment, and as a result, I will discharge patient. Special discussion: I discussed with the patient/guardian in detail that at this point there is no indication for admission to the hospital. It is understood, however, that if the symptoms persist or worsen the patient needs to return immediately for re-evaluation. 23:06 ED course: Pt states chronic anemia, used to get iron and b12 infusions, has not rn followed up in 1 year or more, no active bleeding.. 06/24 20:06 Order name: CBC with Diff; Complete Time: 22:19 rn 06/24 20:06 Order name: Basic Metabolic Panel; Complete Time: 21:32 rn 06/24 20:06 Order name: CT Head C Spine; Complete Time: 21:47 rn 06/24 20:06 Order name: Troponin High Sensitivity; Complete Time: 21:32 rn 06/24 21:39 Order name: CREATININE WHOLE BLOOD; Complete Time: 21:47 EDMS 06/24 22:17 Order name: CBC Smear Scan; Complete Time: 22:19 EDMS 06/24 20:06 Order name: XRAY Chest (1 view); Complete Time: 22:10 rn 06/24 20:06 Order name: IV Start; Complete Time: 20:54 rn 06/24 20:06 Order name: CT Chest For PE Angio; Complete Time: 21:47 rn 06/24 20:06 Order name: EKG; Complete Time: 20:07 rn 06/24 20:06 Order name: EKG - Nurse/Tech; Complete Time: 20:44 rn 06/24 20:06 Order name: Cardiac monitoring rn 06/24 20:06 Order name: O2 Sat Monitoring rn EC:48 Rate is 103 beats/min. Rhythm is regular. QRS [place] is Normal. SC interval is normal. rn QRS interval is normal. QT interval is normal. No Q waves. T waves are Normal. No ST changes noted. Clinical impression: Sinus tachycardia. Interpreted by me. Reviewed by me. Administered Medications: 20:58 Drug: SOLU-Medrol (methylPrednisoLONE) 125 mg Route: IVP; Site: left antecubital; ja4 20:58 Drug: NS 0.9% 1000 ml Route: IV; Rate: 1000 ml; Site: left antecubital; ja4 22:06 Drug: Xopenex (levalbuterol) (3) 1.25 mg Route: Inhalation; ja4 Disposition Summary: 06/24/22 22:21 Discharge Ordered Location: Home rn Problem: new rn Symptoms: have improved rn Condition: Stable rn Diagnosis - SARS-associated coronavirus as the cause of diseases classified elsewhere rn - Syncope rn - Dehydration rn Followup: rn - With: Private Physician - When: As needed - Reason: Recheck today's complaints, Re-evaluation by your physician Discharge Instructions: - Discharge Summary Sheet rn - Dehydration, Adult rn - COVID-19 rn - 10 Things You Can Do to Manage Your COVID-19 Symptoms at Home - CDC rn - Viral Illness, Adult rn Forms: - Medication Reconciliation Form rn - Thank You Letter rn - Antibiotic corporate intern - Prescription Opioid Use rn Prescriptions: - Albuterol Sulfate 2.5 mg /3 mL (0.083 %) Inhalation Solution for Nebulization - inhale 1 unit by NEBULIZATION route every 8 hours As needed; 1 box; Refills: 0, rn Product Selection Permitted Signatures: Dispatcher [employer] EDMS Ronny Malcolm MD MD rn Allen, Jeremy, RN RN rehan Corrections: (The following items were deleted from the chart) 20:46 20:44 Constitutional: Negative for fever, chills, and weight loss, Eyes: Negative for rn injury, pain, redness, and discharge, ENT: + ear pain and sore throat Cardiovascular: Negative for chest pain, palpitations, and edema, Respiratory: + cough and sob Abdomen/GI: Negative for abdominal pain, nausea, vomiting, diarrhea, and constipation, Back: Negative for injury and pain, : Negative for injury, bleeding, discharge, and swelling, MS/Extremity: Negative for injury and deformity, Skin: Negative for injury, rash, and discoloration, Neuro: Negative for numbness, tingling, and seizure, rn
--- NOTE | 2022-06-24 22:22 | ER ---
Nurse's Notes [facility] Name: Livier Brown Age: 42 yrs Sex: Female : 1980 Arrival Date: 06/24/2022 Time: 20:04 Bed 14 Private MD: Diagnosis: SARS-associated coronavirus as the cause of diseases classified elsewhere;Syncope;Dehydration Presentation: 06/24 20:11 Chief complaint: Patient states: passed out and landed on left side. diagnosed with ja4 covid today. Coronavirus screen: difficulty breathing, fatigue, fever, muscle pain, Client reports previous positive COVID test result. Date of collection: June 24, 2022. Ebola Screen: No symptoms or risks identified at this time. Initial Sepsis Screen: Does the patient meet any 2 criteria? HR > 90 bpm. Yes Does the patient have a suspected source of infection? No. Patient's initial sepsis screen is negative. Risk Assessment: Do you want to hurt yourself or someone else? Patient reports no desire to harm self or others. Onset of symptoms was June 24, 2022. 20:11 Method Of Arrival: EMS [facility] 20:11 Acuity: ANTONIA 2 ja4 Triage Assessment: 20:14 General: Appears uncomfortable, obese, Behavior is cooperative, appropriate for age. ja4 Pain: Complains of pain in generalized and headache Pain currently is 8 out of 10 on a pain scale. Neuro: No deficits noted. Cardiovascular: No deficits noted. Respiratory: No deficits noted. Historical: - Allergies: 20:14 No Known Allergies; ja4 - Immunization history:: Adult Immunizations up to date. - Family history:: not pertinent. - Hospitalizations: : No recent hospitalization is reported. Screenin:16 Abuse screen: Denies threats or abuse. Nutritional screening: No deficits noted. ja4 Tuberculosis screening: No symptoms or risk factors identified. Fall Risk Mental Status- Oriented to own ability (0 pts). Assessment: 20:16 Reassessment: see triage note. ja4 Vital Signs: 20:11 BP 155 / 77; Pulse 120; Resp 14; Pulse Ox 100% on R/A; Weight 68.04 kg; Height 5 ft. 1 ja4 in. (154.94 cm); Pain 8/10; 20:14 BP 155 / 77; Pulse 120; Resp 14; Pulse Ox 100% on R/A; ja4 22:21 BP 143 / 77; rn 22:21 Pulse 89; rn 22:33 BP 143 / 77; Pulse 96; Resp 14; Pulse Ox 100% on R/A; ja4 20:11 Body Mass Index 28.34 (68.04 kg, 154.94 cm) ja4 ED Course: 20:04 Patient arrived in ED. rn 20:04 Ronny Malcolm MD is Attending Physician. rn 20:05 Brennen Styles RN is Primary Nurse. ja4 20:14 Triage completed. ja4 20:14 Arm band placed on right wrist. ja4 20:16 Bed in low position. Call light in reach. Side rails up X2. ja4 20:16 No provider procedures requiring assistance completed. ja4 20:22 XRAY Chest (1 view) In Process Unspecified. EDMS 20:53 Inserted saline lock: 22 gauge in left antecubital area, using aseptic technique. ja4 20:54 Inserted saline lock: 20 gauge in left antecubital area, using aseptic technique. Blood ds4 collected. 21:06 CT Head C Spine In Process Unspecified. EDMS 21:10 CT Chest For PE Angio In Process Unspecified. EDMS 22:33 IV discontinued, intact, bleeding controlled, No redness/swelling at site. Pressure ja4 dressing applied. Administered Medications: 20:58 Drug: SOLU-Medrol (methylPrednisoLONE) 125 mg Route: IVP; Site: left antecubital; ja4 20:58 Drug: NS 0.9% 1000 ml Route: IV; Rate: 1000 ml; Site: left antecubital; ja4 22:06 Drug: Xopenex (levalbuterol) (3) 1.25 mg Route: Inhalation; ja4 Medication: 20:16 VIS not applicable for this client. ja4 Outcome: 22:21 Discharge ordered by . rn 22:33 Discharged to home ambulatory. ja4 22:33 Condition: stable 22:33 Discharge instructions given to patient, family, Instructed on discharge instructions, follow up and referral plans. medication usage, Demonstrated understanding of instructions, follow-up care, medications, Prescriptions given X 1. 22:51 Patient left the ED. ja4 Signatures: Dispatcher [employer] EDMS Ronny Malcolm MD MD rn Swanson, Donovan ds4 Jensen, Brennen, RN RN ja4
[2022-06-25 03:07] VITALS: O2SAT 100
[2022-06-25 03:35] VITALS: BP 143/77
--- NOTE | 2022-06-27 15:10 | EKG ---
Test Date: 2022-06-24 Test Time: 20:44:24 Primary Care Coordinator: MEASUREMENT RESULTS: Intervals: Rate: 103 NE: 116 QRSD: 74 QT: 336 QTc: 440 [place]: P: 66 NE: 116 QRS: 69 T: 49 INTERPRETIVE STATEMENTS: Sinus tachycardia Nonspecific ST abnormality Abnormal ECG Compared to ECG 10/05/2011 00:07:01 ST (T wave) deviation now present Sinus rhythm no longer present Electronically Signed On 06-27-22 15:08:44 CDT by Kai Mix
== END 2022-06-24 22:51 | disposition home or self-care (01) ==
LOC: ER 19:57
DX: U07.1 COVID-19 (principal); E86.0 Dehydration
CPT/HCPCS: 36415; 70450; 71045; 71275; 72125; 80048; 82565; 84484; 85025; 93005; 96374; 99284; J2930; J7030; J7614; Q9967